=== PATIENT | female | born 1955 | race American Indian/Alaskan Native ===

== ENCOUNTER 2020-07-11 22:43 | Inpatient (IN) | payer MEDICARE ==
[2020-07-12] MEDS ORDERED: SODIUM CHLORIDE 0.9% 500 ML 500 ML IV ONE (03:13)
[2020-07-12] MEDS ORDERED: ONDANSETRON 4 MG/2 ML INJ IV ONE (03:13)
[2020-07-12] MEDS ORDERED: MORPHINE 4 MG/1 ML INJ IV ONE (03:13)
[2020-07-12] MEDS ORDERED: ACETAMINOPHEN 325 MG TAB PO ONE (03:16)
--- NOTE | 2020-07-12 03:16 | Emergency Department Report ---
<EL DOTSON - Last Filed: 07/12/20 08:39> ED General Adult HPI - General Chief complaint: Chest Pain Stated complaint: SOB/N/V/RT SIDE PAIN Time Seen by Provider: 07/12/20 02:56 - Related Data Home Medications Medication Instructions Recorded Confirmed Last Taken Gabapentin 300 mg PO TID 07/12/20 07/12/20 07/11/20 Aspirin 325 mg PO QDAY 07/13/20 07/13/20 Unknown Atorvastatin [Lipitor Tab] 80 mg PO DAILY 07/13/20 07/13/20 Unknown HYDROcodone/ACETAMINOPHEN 1 each PO TID 07/13/20 07/13/20 Unknown [Hydrocodone-Acetamin 7.5-300] Insulin Glargine [Lantus VIAL] 32 units SQ HS 07/13/20 07/13/20 Unknown Losartan [Cozaar] 50 mg PO QDAY 07/13/20 07/13/20 Unknown Lutein 20 mg PO DAILY 07/13/20 07/13/20 Unknown NIFEdipine [Nifedipine ER] 60 mg PO DAILY 07/13/20 07/13/20 Unknown SUMAtriptan succinate [SUMAtriptan 100 mg PO DAILY 07/13/20 07/13/20 Unknown Succinate] Sertraline [Zoloft] 100 mg PO QDAY 07/13/20 07/13/20 Unknown levETIRAcetam [Keppra TAB] 500 mg PO BID 07/13/20 07/13/20 Unknown Allergies Allergy/AdvReac Type Severity Reaction Status Date / Time No Known Allergies Allergy Verified 07/12/20 05:04 ED Past Medical Hx - Medications Home Medications: Home Medications Medication Instructions Recorded Confirmed Last Taken Type Gabapentin 300 mg PO TID 07/12/20 07/12/20 07/11/20 History Aspirin 325 mg PO QDAY 07/13/20 07/13/20 Unknown History Atorvastatin [Lipitor Tab] 80 mg PO DAILY 07/13/20 07/13/20 Unknown History HYDROcodone/ACETAMINOPHEN 1 each PO TID 07/13/20 07/13/20 Unknown History [Hydrocodone-Acetamin 7.5-300] Insulin Glargine [Lantus VIAL] 32 units SQ HS 07/13/20 07/13/20 Unknown History Losartan [Cozaar] 50 mg PO QDAY 07/13/20 07/13/20 Unknown History Lutein 20 mg PO DAILY 07/13/20 07/13/20 Unknown History NIFEdipine [Nifedipine ER] 60 mg PO DAILY 07/13/20 07/13/20 Unknown History SUMAtriptan succinate [SUMAtriptan 100 mg PO DAILY 07/13/20 07/13/20 Unknown History Succinate] Sertraline [Zoloft] 100 mg PO QDAY 07/13/20 07/13/20 Unknown History levETIRAcetam [Keppra TAB] 500 mg PO BID 07/13/20 07/13/20 Unknown History ED Medical Decision Making - Lab Data Result diagrams: 07/12/20 03:38 07/12/20 03:38 ED Disposition Clinical Impression: Suspected 2019 novel coronavirus infection, Renal insufficiency, Hypokalemia, SIRS (systemic inflammatory response syndrome), Acute abdominal pain Disposition: OP ADMIT IP TO THIS HOSP Is pt being admited?: Yes Condition: Serious <EULA HENDERSON - Last Filed: 07/16/20 16:58> ED General Adult HPI - General PUI?: Yes Source: patient, RN notes reviewed Mode of arrival: Ambulatory Limitations: Physical Limitation - History of Present Illness Initial comments: The patient was evaluated in the emergency department for symptoms described in the history of present illness. He/she was evaluated in the context of the global COVID-19 pandemic, which necessitated consideration that the patient might be at risk for infection with the virus that causes COVID-19. Institutional protocols and algorithms that pertain to the evaluation of patie nts at risk for COVID-19 are in a state of rapid change based on information released by regulatory bodies including the CDC and federal and state organizations. These policies and algorithms were followed during the patient's care in the emergency department. Please note that these policies, procedures and recommendations changed on a rapid basis. Primary care doctor: Dr German Torres Past medical history: Obesity, hypertension, seizure, stroke, abdominal surgical history includes myomectomy and hysterectomy This is a 64-year-old female. She is not known to myself previously. She presents to the ER with a complaint of epigastric and right upper quadrant pain, that radiates to the back, present for 2 to 3 days, nausea, malaise, fatigue, cough, loss of taste, loss of smell, weakness and myalgias. Patient reports that she has been self isolating and self quarantining. She reports that she does not have any COVID contacts that she is aware of. She denies DVT and pulmonary embolism risk factors. She also has a mild headache, which is throbbing, not sudden or thunderclap in nature, not maximal in intensity, and not the worst headache of her life. She is never had pain or symptoms like this before that she is aware of. Abdominal pain is sharp, increases with palpation, decreases with rest and position. -: Gradual, days(s) Location: abdomen Radiation: back Quality: aching Consistency: intermittent Improves with: rest Worsens with: movement ED Review of Systems ROS: Stated complaint: SOB/N/V/RT SIDE PAIN Other details as noted in HPI Constitutional: fever, malaise, weakness Eyes: denies: eye discharge ENT: denies: epistaxis Respiratory: cough, shortness of breath Cardiovascular: palpitations. denies: chest pain Gastrointestinal: abdominal pain, nausea. 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 Absent: nystagmus - ENT ENT exam: Present: normal exam, normal orophraynx, mucous membranes moist, normal external ear exam - Neck Neck exam: Present: normal inspection, full ROM. Absent: tenderness, meningismus - Respiratory Respiratory exam: Present: decreased breath sounds. Absent: respiratory distress, wheezes, rales, rhonchi, stridor - Cardiovascular Cardiovascular Exam: Present: normal rhythm, tachycardia, normal heart sounds. Absent: systolic murmur, diastolic murmur, rubs, gallop - GI/Abdominal GI/Abdominal exam: Present: soft, tenderness (There is right upper quadrant tenderness. There is a positive right upper quadrant Tang sign.), normal bowel sounds. Absent: distended, guarding, rebound, rigid - Extremities Exam Extremities exam: Present: normal inspection, full ROM, other (2+ pulses noted in the bilateral upper and lower extremities. There is no palpable cord. negative Homans sign. Muscular compartments are soft. The pelvis is stable.). Absent: pedal edema, calf tenderness - Back Exam Back exam: Present: normal inspection, full ROM, CVA tenderness (R). Absent: tenderness, paraspinal tenderness, vertebral tenderness - Neurological Exam Neurological exam: Present: alert, oriented X3, other (No facial droop. Tongue midline. Extraocular movements intact bilaterally. Facial sensation intact to light touch in V1, V2, V3 distribution bilaterally. 5 and a 5 strength in 4 extremities. Sensation intact to light touch in 4 extremities.). Absent: motor sensory deficit - Psychiatric Psychiatric exam: Present: anxious - Skin Skin exam: Present: warm, dry, intact, normal color. Absent: rash ED Course Vital Signs 07/11/20 07/12/20 07/12/20 23:05 02:54 03:14 Temperature 99.7 F H 100.6 F H Pulse Rate 108 H 101 H Respiratory 18 14 17 Rate Blood Pressure 142/82 200/91 Blood Pressure 200/91 [Right] O2 Sat by Pulse 96 94 97 Oximetry 07/12/20 07/12/20 07/12/20 06:24 06:26 06:53 Temperature Pulse Rate 87 92 H Respiratory 17 16 Rate Blood Pressure 120/68 Blood Pressure 112/64 112/64 [Right] O2 Sat by Pulse 88 98 100 Oximetry 07/12/20 07/12/20 07:00 09:58 Temperature 98.4 F Pulse Rate 78 85 Respiratory 17 22 Rate Blood Pressure 112/64 157/72 Blood Pressure [Right] O2 Sat by Pulse 100 98 Oximetry - Reevaluation(s) Reevaluation #1: 07/12/20 03:46 Differential diagnosis, include but not limited to: Cholecystitis, pneumonia, pyelonephritis, COVID-19, pulmonary embolism Assessment and plan: 64-year-old female with fever, tachycardia, hypoxia, right upper quadrant tenderness. Patient placed on isolation. During her history and physical, I had on complete personal protective equipment. Obtain x-ray of the chest, appropriate laboratory studies, right upper quadrant ultrasound, EKG and urinalysis. Treat patient's symptoms supportively and symptomatically, we anticipate antibiotic therapy will be initiated once initial diagnostics have resulted. We anticipate admission to this hospital. Discussed plan of care with the patient, who verbalized understanding, and is amenable to this plan of care. Reevaluation #2: 07/12/20 04:57 Patient fairly obese, she is ordered for IV fluids, 30 cc/kg of ideal body weight. Reevaluation #3: 07/12/20 05:09 Elevated troponin is likely a type II troponin leak. Reevaluation #4: 07/12/20 05:40 Right upper quadrant ultrasound suggested gallstones, with no radiographic evidence to support cholecystitis. Right-sided hydronephrosis is suggested. Urinalysis suggestive of urinary tract infection. Elevated d-dimer is reviewed and appreciated, nuclear medicine study is ordered, however, given the potential presence of surgical condition, i.e. obstructing renal stone, systemic anticoagulation will be withheld at this time. Patient requiring supplemental oxygen at this time, 2 to 3 L initiated. Patient reassessed, states that her pain is improved, CT scan abdomen pelvis is pending at this time Reevaluation #5: 07/12/20 05:52 CT scan abdomen pelvis shows no kidney stone or acute surgical condition. Right-sided hydronephrosis appears to be chronic. care will be transferred to Dr Rachelle Dotson, to contact hospital physician to arrange admission 07/12/20 06:00 ED Medical Decision Making - Lab Data Result diagrams: 07/16/20 06:39 07/16/20 06:39 Vital Signs 07/11/20 07/12/20 23:05 02:54 Temperature 99.7 F H 100.6 F H Pulse Rate 108 H 101 H Respiratory 18 14 Rate Blood Pressure 142/82 200/91 Blood Pressure 200/91 [Right] O2 Sat by Pulse 96 94 Oximetry - EKG Data -: EKG Interpreted by [place] EKG shows normal: sinus rhythm Rate: tachycardia - EKG Data When compared to previous EKG there are: previous EKG unavailable 07/12/20 03:47 There is no prior EKG available for comparison. Sinus rhythm, 103 bpm, left axi s deviation, left anterior fascicular block, left ventricular hypertrophy, poor R wave progression, and motion artifact. This EKG is abnormal. This EKG is not a STEMI. There is no prior EKG available for comparison at this time. - Radiology Data Radiology results: pending, report reviewed, image reviewed Print Report Referring Physician: EULA HENDERSON Patient Name: BEULAH LOWE Date of : 1955 Sex: Female Report Date: 2020-07-12 Report Status: Finalized Findings [address] [address] Ultrasound Report Signed Patient: BEULAH LOWE MR#: [id number] : 1955 Acct:[id number] Age/Sex: 64 / F ADM Date: 07/11/20 Loc: ED Attending Dr: Ordering Physician: EULA HENDERSON MD Date of Service: 07/12/20 Procedure(s): US abdomen limited Accession Number(s): [id number] cc: EULA HENDERSON MD ULTRASOUND ABDOMEN, LIMITED (RIGHT UPPER QUADRANT) INDICATION: ruq pain tenderness. COMPARISON: None available. FINDINGS: Pancreas: Visualized portion shows no significant abnormality. Liver: Normal. Gallbladder: Multiple gallstones are present, the largest measures 2 cm. There is no gallbladder wall thickening or pericholecystic fluid. Bile ducts: Normal. Common Bile Duct measures 4 mm. Free fluid: None. Additional Findings: There is advanced right hydronephrosis. IMPRESSION: 1. Cholelithiasis. 2. Advanced right hydronephrosis. Signer Name: Eliceo Michaud MD Signed: 07/12/2020 5:16 AM Workstation Name: [id number] Transcribed By: AMBER Dictated By: Eliceo Michaud MD Electronically Authenticated By: Eliceo Michaud MD Signed Date/Time: 07/12/20515 DD/ 4 TD/TT: Print Report Referring Physician: EULA HENDERSON Patient Name: BEULAH LOWE Date of : 1955 Sex: Female Report Date: 2020-07-12 Report Status: Finalized Findings [address] [address] XRay Report Signed Patient: BEULAH LOWE MR#: [id number] : 1955 Acct:[id number] Age/Sex: 64 / F ADM Date: 07/11/20 Loc: ED Attending Dr: Ordering Physician: EULA HENDERSON MD Date of Service: 07/12/20 Procedure(s): XR chest 1V ap Accession Number(s): [id number] cc: EULA HENDERSON MD Fluoro Time In Minutes: CHEST 1 VIEW INDICATION: ruq pain, cough hypoxia. COMPARISON: None. FINDINGS: Support devices: None. Heart: Enlarged. Lungs/Pleura: No acute pulmonary or pleural findings. IMPRESSION: 1. No acute findings. Signer Name: Eliceo Michaud MD Signed: 07/12/2020 3:49 AM Workstation Name: [id number] Transcribed By: AMBER Dictated By: Eliceo Michaud MD Electronically Authenticated By: Eliceo Michaud MD Signed Date/Time: 07/12/20348 DD/ 7 TD/TT: Print Report Referring Physician: EULA HENDERSON Patient Name: BEULAH LOWE Date of : 1955 Sex: Female Report Date: 2020-07-12 Report Status: Finalized [place] [address] Cat Scan Report Signed Patient: BEULAH LOWE MR#: [id number] : 1955 Acct:[id number] Age/Sex: 64 / F ADM Date: 07/11/20 Loc: ED Attending Dr: Ordering Physician: EULA HENDERSON MD Date of Service: 07/12/20 Procedure(s): CT abdomen pelvis wo con Accession Number(s): [id number] cc: EULA HENDERSON MD CT ABDOMEN AND PELVIS WITHOUT IV CONTRAST INDICATION: R.U.Q. abd pain. Cholecystitis vs Renal Colic vs Pyelonephritis. COMPARISON: Right upper quadrant ultrasound earlier the same day. TECHNIQUE: All CT scans at this facility use dose modulation, automated exposure control, iterative reconstruction or weight based dosing, when appropriate, to reduce radiation dose to as low as reasonably achievable. FINDINGS: Lung Bases: Atelectatic changes are noted in the bases. Skeletal System: No acute abnormality. ABDOMEN: Liver: No significant abnormality. Gallbladder: Cholelithiasis. Bile Ducts: No significant abnormality. Pancreas: No significant abnormality. Spleen: No significant abnormality. Adrenals: No significant abnormality. Right Kidney: There is advanced right hydronephrosis with cortical thinning. Right ureter is normal in caliber. No stones are seen. Left Kidney: No significant abnormality. Upper GI tract: Duodenal diverticulum is noted. Lymph Nodes: No significant adenopathy. Aorta: No significant abnormality. Additional Findings: No significant abnormality. PELVIS: Colon: The ascending colon and cecum are dilated with fluid. Urinary Bladder and Distal Ureters: No significant abnormality. Appendix: No significant abnormality. Lymph Nodes: No significant adenopathy. Additional Findings: None. IMPRESSION: 1. Cholelithiasis. No biliary dilatation or gallbladder inflammation. 2. Given the diffuse right renal cortical thinning, right hydronephrosis is likely chronic. This is likely due to chronic UPJ obstruction. CT without contrast is relatively insensitive for pyelonephritis; however, there is asymmetric right perinephric stranding which could be seen in setting of pyelonephritis, correlate clinically. 3. The cecum and ascending colon are mildly distended with fluid. No intrinsic inflammation is seen. This is of uncertain significance. Signer Name: Eliceo Michaud MD Signed: 07/12/2020 5:52 AM Workstation Name: [id number] Transcribed By: AMBER Dictated By: Eliceo Michaud MD Electronically Authenticated By: Eliceo Michaud MD Signed Date/Time: 07/12/2052 DD/ 0546 Critical Care Time: Yes Critical care time in (mins) excluding proc time.: 35 Critical care attestation.: If time is entered above; I have spent that time in minutes in the direct care of this critically ill patient, excluding procedure time. ED Disposition Is pt being admited?: Yes Does the pt Need Aspirin: No
--- NOTE | 2020-07-12 03:55 | XRay Report ---
CHEST 1 VIEW INDICATION: ruq pain, cough hypoxia. COMPARISON: None. FINDINGS: Support devices: None. Heart: Enlarged. Lungs/Pleura: No acute pulmonary or pleural findings. IMPRESSION: 1. No acute findings. Signer Name: Eliceo Michaud MD Signed: 07/12/2020 3:49 AM Workstation Name: [id number]
[2020-07-12 04:01] LABS: Basophils % (Auto) 0.2 % (0.0-1.8); Eosinophils % (Auto) 0.1 % (0.0-4.3); Hematocrit 35.3 % (30.3-42.9); Hemoglobin 11.5 gm/dl (10.1-14.3); Lymphocytes # (Auto) 0.9 K/mm3 (1.2-5.4); Lymphocytes % (Auto) 10.5 % (13.4-35.0); Mean Corpuscular HGB Conc 33 % (30-34); Mean Corpuscular Volume 77 fl (79-97); Monocytes % (Auto) 11.3 % (0.0-7.3); Platelet Count 195 K/mm3 (140-440); Red Blood Count 4.56 M/mm3 (3.65-5.03); Red Cell Distribution Width 15.9 % (13.2-15.2)
[2020-07-12 04:11] LABS: INR 1.29 (0.87-1.13)
[2020-07-12 04:19] LABS: Alanine Aminotransferase 19 units/L (7-56); Albumin 3.4 g/dL (3.9-5); BUN/Creatinine Ratio 17; Blood Urea Nitrogen 42 mg/dL (7-17); Calcium 9.6 mg/dL (8.4-10.2); Hemolysis Index 3
[2020-07-12 04:23] LABS: Bilirubin,Direct < 0.2 mg/dL (0-0.2)
[2020-07-12 04:24] LABS: Bacteria,Urine 3+ /HPF (Negative); Bilirubin,Urine NEG (Negative); Blood,Urine LG (Negative); Color,Urine Red (Yellow); RBC,Urine > 182.0 /HPF (0.0-6.0); Sperm,Urine 2+ /HPF (NP); Urobilinogen,Urine < 2.0 mg/dL (<2.0); WBC,Urine > 182.0 /HPF (0.0-6.0)
[2020-07-12] MEDS ORDERED: PIPERACIL/TAZOBACTA 4.5/NS 100 4.5 GM/100 ML VIAL IV ONE (04:25)
[2020-07-12] MEDS ORDERED: POTASSIUM CHLORIDE ER 20 MEQ TAB PO ONE (04:26)
[2020-07-12 04:49] LABS: C-Reactive Protein 33.6 mg/dL (0.00-1.30)
[2020-07-12] MEDS ORDERED: SODIUM CHLORIDE 0.9% IV ONE (04:56)
[2020-07-12] MEDS ORDERED: SODIUM CHLORIDE 0.9% 100 ML ONE (05:00)
[2020-07-12 05:08] LABS: Chol/HDL Ratio 2.05 %
[2020-07-12] MEDS ORDERED: dexAMETHasone 4 MG/ML VIAL IV ONE (05:08)
--- NOTE | 2020-07-12 05:21 | Ultrasound Report ---
ULTRASOUND ABDOMEN, LIMITED (RIGHT UPPER QUADRANT) INDICATION: ruq pain tenderness. COMPARISON: None available. FINDINGS: Pancreas: Visualized portion shows no significant abnormality. Liver: Normal. Gallbladder: Multiple gallstones are present, the largest measures 2 cm. There is no gallbladder wall thickening or pericholecystic fluid. Bile ducts: Normal. Common Bile Duct measures 4 mm. Free fluid: None. Additional Findings: There is advanced right hydronephrosis. IMPRESSION: 1. Cholelithiasis. 2. Advanced right hydronephrosis. Signer Name: Eliceo Michaud MD Signed: 07/12/2020 5:16 AM Workstation Name: [id number]
--- NOTE | 2020-07-12 05:57 | Cat Scan Report ---
CT ABDOMEN AND PELVIS WITHOUT IV CONTRAST INDICATION: R.U.Q. abd pain. Cholecystitis vs Renal Colic vs Pyelonephritis. COMPARISON: Right upper quadrant ultrasound earlier the same day. TECHNIQUE: All CT scans at this facility use dose modulation, automated exposure control, iterative reconstructi on or weight based dosing, when appropriate, to reduce radiation dose to as low as reasonably achieva ble. FINDINGS: Lung Bases: Atelectatic changes are noted in the bases. Skeletal System: No acute abnormality. ABDOMEN: Liver: No significant abnormality. Gallbladder: Cholelithiasis. Bile Ducts: No significant abnormality. Pancreas: No significant abnormality. Spleen: No significant abnormality. Adrenals: No significant abnormality. Right Kidney: There is advanced right hydronephrosis with cortical thinning. Right ureter is normal i n caliber. No stones are seen. Left Kidney: No significant abnormality. Upper GI tract: Duodenal diverticulum is noted. Lymph Nodes: No significant adenopathy. Aorta: No significant abnormality. Additional Findings: No significant abnormality. PELVIS: Colon: The ascending colon and cecum are dilated with fluid. Urinary Bladder and Distal Ureters: No significant abnormality. Appendix: No significant abnormality. Lymph Nodes: No significant adenopathy. Additional Findings: None. IMPRESSION: 1. Cholelithiasis. No biliary dilatation or gallbladder inflammation. 2. Given the diffuse right renal cortical thinning, right hydronephrosis is likely chronic. This is likely due to chronic UPJ obstruction. CT without contrast is relatively insensitive for pyelonephrit is; however, there is asymmetric right perinephric stranding which could be seen in setting of pyelon ephritis, correlate clinically. 3. The cecum and ascending colon are mildly distended with fluid. No intrinsic inflammation is seen. This is of uncertain significance. Signer Name: Eliceo Michaud MD Signed: 07/12/2020 5:52 AM Workstation Name: [id number]
--- NOTE | 2020-07-12 08:25 | Nuclear Medicine Report ---
NUCLEAR MEDICINE PERFUSION ONLY LUNG SCAN HISTORY: Hypoxia, evaluate for pulmonary embolus, shortness of breath, suspected Covid COMPARISON: AP chest performed earlier the same day TECHNIQUE: Multiple projections of the chest were obtained following injection of 5.5 mCi of techneti um 99m MAA FINDINGS: There is homogeneous distribution of the radiotracer bilaterally. No perfusion defect consistent with pulmonary embolus is detected on nuclear medicine study. Signer Name: Tyree Torres Jr, MD Signed: 07/12/2020 8:20 AM Workstation Name: [id number]
[2020-07-12] MEDS ORDERED: ONDANSETRON 4 MG/2 ML INJ IV PRN (11:00)
[2020-07-12] MEDS ORDERED: ACETAMINOPHEN 325 MG TAB PO PRN (11:00)
--- NOTE | 2020-07-12 11:44 | History and Physical Report ---
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 Patient states her pain is sharp, increases with palpitation, decreases with rest and position, is intermittent in nature and rated at a 6/10. Patient denies any sick contacts, recent travels or known exposure to COVID-19. Work-up in the emergency department reveals VAL (CR 2.5/BUN 42), pyelonephritis and cholelithiasis on CT scan, elevated D-dimer (5255), hypokalemia (3.4), elevated LDH (291) and CRP (3.36), urine analysis with leukocyte esterase and pyuria and elevated troponin at 0.171. She is on supplemental oxygen at this time consistent with acute respiratory distress. She will be admitted to the hospital service with a complicated urinary tract infection and is a COVID-19 PUI. Infectious disease has been consulted and she has been initiated on empiric antibiotics and steroids. Past History Past Medical History: diabetes, hypertension, seizures, stroke, other Past Surgical History: hysterectomy, total knee replacement, Other (Myectomy) Social history: single, lives with family. denies: smoking, alcohol abuse, prescription drug abuse, IV drug use Family history: hypertension Medications and Allergies Allergies Allergy/AdvReac Type Severity Reaction Status Date / Time No Known Allergies Allergy Verified 07/12/20 05:04 Home Medications Medication Instructions Recorded Confirmed Last Taken Type Gabapentin 300 mg PO TID 07/12/20 07/12/20 07/11/20 History Active Meds: Active Medications Acetaminophen (Tylenol) 650 mg PO Q4H PRN PRN Reason: Pain MILD(1-3)/Fever >100.5/FERNANDEZ Docusate Sodium (Colace) 100 mg PO BID [facility] Famotidine (Pepcid) 20 mg PO BID [facility] Cefepime HCl (Cefepime/Ns 1 Gm/100 Ml) 1 gm in 100 mls @ 200 mls/hr IV Q24HR [facility]; Protocol Ondansetron HCl (Zofran) 4 mg IV Q8H PRN PRN Reason: Nausea And Vomiting Oxycodone/Acetaminophen (Percocet 5/325) 1 tab PO Q6H PRN PRN Reason: Pain, Moderate (4-6) Senna (Senokot) 8.6 mg PO Q12HR [facility] Sodium Chloride (Sodium Chloride Flush Syringe 10 Ml) 10 ml IV BID [facility] Sodium Chloride (Sodium Chloride Flush Syringe 10 Ml) 10 ml IV PRN PRN PRN Reason: LINE FLUSH Review of Systems Constitutional: fever, chills, night sweats, fatigue, weakness, malaise, lethargy, no weight loss, no weight gain, no anorexia, no chronic pain Ears, nose, mouth and throat: no ear pain, no ear discharge, no tinnitis, no decreased hearing, no nose pain, no nasal congestion, no nasal discharge, no sinus pressure, no sinus pain, no epistaxis, no bleeding gums, no dental pain, no mouth pain, no dysphagia, no hoarseness, no sore throat, no voice changes Breasts: normal Cardiovascular: palpitations, shortness of breath, high blood pressure, leg edema, no chest pain, no orthopnea, no rapid/irregular heart beat, no edema, no syncope, no lightheadedness, no paroxysmal nocturnal dyspnea Respiratory: cough, shortness of breath, sleep apnea, home oxygen (3L), no cough with sputum, no excessive sputum, no hemoptysis Gastrointestinal: abdominal pain, nausea, no vomiting, no diarrhea, no constipation, no change in bowel habits, no hematemesis, no coffee ground emesis, no BRBPR, no melena, no hematochezia, no loss of appetite, no heartburn, no indigestion Genitourinary Female: flank pain, dysuria, urgency, other (renal stents), no hematuria, no nocturia, no vaginal itching, no vaginal discharge Menstruation: post hysterectomy Musculoskeletal: myalgias, no neck stiffness, no neck pain, no shooting arm pain, no arm numbness/tingling, no low back pain, no shooting leg pain, no leg numbness/tingling, no redness of joints, no fractures Integumentary: no rash, no pruritis, no redness, no sores, no wounds, no jaundice, no boils, no blisters, no growths, no bullae, no lesions Neurological: seizures, changes in smell/taste, no head injury, no paralysis, no weakness, no parathesias, no numbness, no tingling, no syncope, no tremors, no ataxia, no lack of coordination, no headaches, no change in speech, no change in mentation, no confusion, no sensory deficit, no double vision Psychiatric: no anxiety, no memory loss, no change in sleep habits, no insomnia, no hypersomnia, no change in appetite, no change in libido, no suicidal ideation, no depression, no hopelessness, no confusion Endocrine: no cold intolerance, no heat intolerance, no polyphagia, no excessive thirst, no polydipsia, no polyuria, no nocturia, no weight change, no high blood sugars Hematologic/Lymphatic: no easy bruising, no easy bleeding Allergic/Immunologic: no urticaria, no allergic rhinitis Exam - Constitutional Vitals: Temp Pulse Resp BP Pulse Ox 98.4 F 85 22 157/72 98 07/12/20 09:58 07/12/20 09:58 07/12/20 09:58 07/12/20 09:58 07/12/20 09:58 General appearance: Present: no acute distress, well-nourished, obese - EENT Eyes: Present: PERRL, EOM intact ENT: hearing intact, clear oral mucosa - Neck Neck: Present: supple, normal ROM - Respiratory Respiratory effort: normal Respiratory: bilateral: diminished - Cardiovascular Rhythm: regular Heart Sounds: Present: S1 & S2. Absent: systolic murmur, diastolic murmur - Extremities Extremities: no ischemia, pulses intact, pulses symmetrical, No edema, normal temperature, normal color, Full ROM Peripheral Pulses: within normal limits - Abdominal General gastrointestinal: Present: soft, tender, non-distended, normal bowel sounds Localized gastrointestinal: tender: RUQ, epigastric periumbilical - Integumentary Integumentary: Present: clear, warm, dry - Musculoskeletal Musculoskeletal: strength equal bilaterally - Psychiatric Psychiatric: cooperative - Neurologic Neurologic: CNII-XII intact, no focal deficits, moves all extremities - Allied Health Allied health notes reviewed: nursing HEART Score - HEART Score History: Moderately suspicious EKG: Normal Age: 45-65 Risk factors: 1-2 risk factors Troponin: Troponin T 0.171 ng/mL (0.00-0.029) H* 07/12/20 03:38 Troponin: 1-3x normal limit HEART Score: 4 Results - Labs CBC & Chem 7: 07/12/20 03:38 07/12/20 03:38 Labs: Laboratory Last Values WBC 8.9 K/mm3 (4.5-11.0) 07/12/20 03:38 RBC 4.56 M/mm3 (3.65-5.03) 07/12/20 03:38 Hgb 11.5 gm/dl (10.1-14.3) 07/12/20 03:38 Hct 35.3 % (30.3-42.9) 07/12/20 03:38 MCV 77 fl (79-97) L 07/12/20 03:38 MCH 25 pg (28-32) L 07/12/20 03:38 MCHC 33 % (30-34) 07/12/20 03:38 RDW 15.9 % (13.2-15.2) H 07/12/20 03:38 Plt Count 195 K/mm3 (140-440) 07/12/20 03:38 Lymph % (Auto) 10.5 % (13.4-35.0) L 07/12/20 03:38 Cloud % (Auto) 11.3 % (0.0-7.3) H 07/12/20 03:38 Eos % (Auto) 0.1 % (0.0-4.3) 07/12/20 03:38 Baso % (Auto) 0.2 % (0.0-1.8) 07/12/20 03:38 Lymph # (Auto) 0.9 K/mm3 (1.2-5.4) L 07/12/20 03:38 Cloud # (Auto) 1.0 K/mm3 (0.0-0.8) H 07/12/20 03:38 Eos # (Auto) 0.0 K/mm3 (0.0-0.4) 07/12/20 03:38 Baso # (Auto) 0.0 K/mm3 (0.0-0.1) 07/12/20 03:38 Seg Neutrophils % 77.9 % (40.0-70.0) H 07/12/20 03:38 Seg Neutrophils # 7.0 K/mm3 (1.8-7.7) 07/12/20 03:38 PT 16.3 Sec. (12.2-14.9) H 07/12/20 03:38 INR 1.29 (0.87-1.13) H 07/12/20 03:38 D-Dimer 5255.25 ng/mlDDU (0-234) H 07/12/20 03:38 Sodium 141 mmol/L (137-145) 07/12/20 03:38 Potassium 3.4 mmol/L (3.6-5.0) L 07/12/20 03:38 Chloride 99.3 mmol/L (98-107) 07/12/20 03:38 Carbon Dioxide 24 mmol/L (22-30) 07/12/20 03:38 Anion Gap 21 mmol/L 07/12/20 03:38 BUN 42 mg/dL (7-17) H 07/12/20 03:38 Creatinine 2.5 mg/dL (0.6-1.2) H 07/12/20 03:38 Estimated GFR 24 ml/min 07/12/20 03:38 BUN/Creatinine Ratio 17 % 07/12/20 03:38 Glucose 231 mg/dL (65-100) H 07/12/20 03:38 Glucose 237 mg/dL (65-100) H 07/12/20 03:38 POC Glucose 252 (70-105) H 07/12/20 11:26 Lactic Acid 1.60 mmol/L (0.7-2.0) 07/12/20 03:38 Calcium 9.6 mg/dL (8.4-10.2) 07/12/20 03:38 Ferritin 139.8 ng/mL (10.0-200.0) 07/12/20 03:38 Total Bilirubin 0.60 mg/dL (0.1-1.2) 07/12/20 03:38 Direct Bilirubin < 0.2 mg/dL (0-0.2) 07/12/20 03:38 Indirect Bilirubin 0.4 mg/dL 07/12/20 03:38 AST 37 units/L (5-40) 07/12/20 03:38 ALT 19 units/L (7-56) 07/12/20 03:38 Alkaline Phosphatase 80 units/L (35-129) 07/12/20 03:38 Lactate Dehydrogenase 290 units/L (91-180) H 07/12/20 03:38 Lactate Dehydrogenase 291 units/L (91-180) H 07/12/20 03:38 Troponin T 0.171 ng/mL (0.00-0.029) H* 07/12/20 03:38 C-Reactive Protein 33.50 mg/dL (0.00-1.30) H 07/12/20 03:38 C-Reactive Protein 33.60 mg/dL (0.00-1.30) H 07/12/20 03:38 Total Protein 7.4 g/dL (6.3-8.2) 07/12/20 03:38 Albumin 3.4 g/dL (3.9-5) L 07/12/20 03:38 Albumin/Globulin Ratio 0.9 % 07/12/20 03:38 Triglycerides 115 mg/dL (2-149) 07/12/20 03:38 Cholesterol 111 mg/dL (50-199) 07/12/20 03:38 LDL Cholesterol Direct 33 mg/dL (50-130) L 07/12/20 03:38 HDL Cholesterol 54 mg/dL (40-59) 07/12/20 03:38 Cholesterol/HDL Ratio 2.05 % 07/12/20 03:38 Lipase 28 units/L (13-60) 07/12/20 03:38 Procalcitonin 55.06 ng/mL (<0.15) 07/12/20 03:44 Urine Color Red (Yellow) 07/12/20 04:08 Urine Turbidity Turbid (Clear) 07/12/20 04:08 Urine pH 5.0 (5.0-7.0) 07/12/20 04:08 Ur Specific [place] 1.017 (1.003-1.030) 07/12/20 04:08 Urine Protein 100 mg/dl mg/dL (Negative) 07/12/20 04:08 Urine Glucose (UA) Neg mg/dL (Negative) 07/12/20 04:08 Urine Ketones Neg mg/dL (Negative) 07/12/20 04:08 Urine Blood Lg (Negative) 07/12/20 04:08 Urine Nitrite Neg (Negative) 07/12/20 04:08 Urine Bilirubin Neg (Negative) 07/12/20 04:08 Urine Urobilinogen < 2.0 mg/dL (<2.0) 07/12/20 04:08 Ur Leukocyte Esterase Mod (Negative) 07/12/20 04:08 Urine WBC (Auto) > 182.0 /HPF (0.0-6.0) H 07/12/20 04:08 Urine RBC (Auto) > 182.0 /HPF (0.0-6.0) 07/12/20 04:08 U Epithel Cells (Auto) 16.0 /HPF (0-13.0) H 07/12/20 04:08 Urine Bacteria (Auto) 3+ /HPF (Negative) 07/12/20 04:08 Urine WBC Clumps 3+ /HPF 07/12/20 04:08 Urine Sperm 2+ /HPF ([employer] [facility]) 07/12/20 04:08 Microbiology: Microbiology 07/12/20 04:17 Peripheral/Venous Blood Culture - Preliminary Culture in Progress 07/12/20 03:38 Peripheral/Venous Blood Culture - Preliminary Culture in Progress - Imaging and Cardiology Chest x-ray: report reviewed, image reviewed CT scan - abdomen: report reviewed US - abdomen: report reviewed - Diagnostic Impressions Diagnostic Impressions: 07/12 CT abdomen/pelvis without contrast:1. Cholelithiasis. No biliary d ilatation or gallbladder inflammation. 2. Given the diffuse right renal cortical thinning, right hydronephrosis is likely chronic. This is likely due to chronic UPJ obstruction. CT without contrast is relatively insensitive for pyelonephritis; however, there is asymmetric right perinephric stranding which could be seen in setting of pyelonephritis, correlate clinically. 3. The cecum and ascending colon are mildly distended with fluid. No intrinsic inflammation is seen. This is of uncertain significance. Chest x-ray: No acute findings 07/12 VQ scan: No perfusion deficit consistent with pulmonary embolism is detected. 07/12 abdominal ultrasound: 1. Cholelithiasis. 2. Advanced right hydronephrosis. Tejeda/IV: Voiding Method Bedside Commode IV Catheter Type [Left INT / Saline Lock Antecubital] Assessment and Plan - Patient Problems (1) Pyelonephritis, acute Current Visit: Yes Status: Acute Plan to address problem: 07/12 CTA abdomen/pelvis without contrast: Atelectatic changes noted in the lung bases. Advanced right hydronephrosis with cortical thinning which is likely chronic, due to chronic UPJ obstruction with asymmetric right perinephric stranding. Cholelithiasis with no biliary dilation or gallbladder inflammation. Cecum and ascending colon are mildly distended with fluid with no intrinsic inflammation. 07/12 urine analysis shows pyuria and leukocyte esterase 07/12 urine culture pending IV antibiotic therapy Trend CBC (2) Suspected 2019 novel coronavirus infection Current Visit: Yes Status: Acute Plan to address problem: 04/11 COVID-19 PCR pending ID consulted S/p dexamethasone in the ED Dexamethasone 6 mg p.o. daily () Isolation/contact precautions Pulmonary hygiene Continuous SPO2 monitoring OOB 3 times daily and as needed Prone to sleep as needed Telemetry oxygen as needed Trend COVID-19 markers Anticoagulation per Covid protocol (3) VAL (acute kidney injury) Current Visit: Yes Status: Acute Plan to address problem: Admit creatinine 2.5/42 s/p 1500ml NS bolus in ED Trend BMP Judicious IV fluid in setting of possible COVID-19 for 1 additional liter Avoid nephrotoxic medications Renally dose medications Strict intake and output (4) Elevated d-dimer Current Visit: Yes Status: Acute Plan to address problem: Admit D dimer 5255 07/12 VQ scan shows low probability of a pulmonary embolism Trend D-dimer Prophylactic anticoagulation per Covid protocol (5) Hypokalemia Current Visit: Yes Status: Acute Plan to address problem: Admit potassium 3.4 Repleted in the ED Trend BMP Replete as needed (6) Diabetes mellitus Current Visit: Yes Status: Chronic Plan to address problem: 07/12 Hemoglobin A1c pending SSI CC renal diet Accu-Cheks ACHS (7) Elevated troponin Current Visit: Yes Status: Acute Plan to address problem: Likely a type II troponin leak in setting of VAL Trend CE (troponin, CK-MB) Patient denies any chest, jaw, upper back, shoulder, left arm pain, diaphoresis or current nausea Continue to monitor Remote telemetry 07/12 ECG in the ED (8) DVT prophylaxis Current Visit: Yes Status: Acute Plan to address problem: GI prophylaxis SCDs to bilateral lower extremities while in bed Subcu heparin
[2020-07-12] MEDS ORDERED: DEXTROSE 50% IN WATER (25GM) 50 ML SYRINGE IV PRN (11:45)
--- NOTE | 2020-07-12 12:38 | Consultation ---
History of Present Illness - Reason for Consult Consult date: 07/12/20 - History of Present Illness 64-year-old female past medical history obesity, hypertension, CVA with residual right-sided weakness, MN, diabetes admitted to the hospital with abdominal pain. She notes the pain began approximately 2 to 3 days prior to admission and is mostly epigastric and right upper quadrant. She notes an associated nausea, fatigue, cough, anosmia and dysgeusia. She denies any recent Covid contacts that she knows of. She was admitted for concern for pyelonephritis COVID-19. Febrile to 100.6 with a white count of 8.9. Currently on cefepime. Blood cultures currently pending. Imaging personally reviewed: CT abdomen pelvis: Cholelithiasis without dilatation or inflammation. Possible right-sided pyelonephritis V/Q scan: No evidence of PE Chest x-ray: No obvious pneumonia. Review of Systems: Bold if positive, otherwise negative General: fevers, chills, rigors HEENT: visual disturbance, diplopia, eye pain Respiratory: cough, sputum, hemoptysis, shortness of breath Cardiovascular: chest pain, syncope Gastrointestinal: nausea, vomiting, diarrhea, abdominal pain Genitourinary: dysuria, hematuria, flank pain Musculoskeletal: neck pain, back pain, joint pain, edema Neurologic: headaches, seizures Hematologic: easy bruising or bleeding Endocrine: night sweats, acute weight loss Skin: rash, jaundice, redness Psychiatric: suicidal, homicidal ideation Past History Past Medical History: diabetes, hypertension, stroke Past Surgical History: No surgical history Social history: no significant social history Family history: no significant family history Medications and Allergies Allergies Allergy/AdvReac Type Severity Reaction Status Date / Time No Known Allergies Allergy Verified 07/12/20 05:04 Home Medications Medication Instructions Recorded Confirmed Last Taken Type Gabapentin 300 mg PO TID 07/12/20 07/12/20 07/11/20 History Active Meds: Active Medications Acetaminophen (Tylenol) 650 mg PO Q4H PRN PRN Reason: Pain MILD(1-3)/Fever >100.5/FERNANDEZ Dexamethasone (Decadron) 6 mg PO QDAY TIM Stop: 07/21/20 10:01 Dextrose (D50w (25gm) Syringe) 50 ml IV Q30MIN PRN; Protocol PRN Reason: Hypoglycemia Docusate Sodium (Colace) 100 mg PO BID [facility] Famotidine (Pepcid) 20 mg PO BID [facility] Cefepime HCl (Cefepime/Ns 1 Gm/100 Ml) 1 gm in 100 mls @ 200 mls/hr IV Q24HR [facility]; Protocol Insulin Human Lispro (Humalog) 0 unit SUB-Q ACHS [facility]; Protocol Ondansetron HCl (Zofran) 4 mg IV Q8H PRN PRN Reason: Nausea And Vomiting Oxycodone/Acetaminophen (Percocet 5/325) 1 tab PO Q6H PRN PRN Reason: Pain, Moderate (4-6) Senna (Senokot) 8.6 mg PO Q12HR [facility] Sodium Chloride (Sodium Chloride Flush Syringe 10 Ml) 10 ml IV BID [facility] Sodium Chloride (Sodium Chloride Flush Syringe 10 Ml) 10 ml IV PRN PRN PRN Reason: LINE FLUSH Physical Examination - Physical Exam Narrative exam: Physical exam deferred due to PPE conservation strategy. Please refer to primary team's note. - Constitutional Vitals: Vital Signs Temp Pulse Resp BP Pulse Ox 98.4 F 85 22 157/72 98 07/12/20 09:58 07/12/20 09:58 07/12/20 09:58 07/12/20 09:58 07/12/20 09:58 Temperature -Last 24 Hours Temperature 98.4 F Temperature 100.6 F Temperature 100.6 F Temperature 99.7 F Results - Labs CBC & Chem 7: 07/12/20 03:38 07/12/20 03:38 Labs: Abnormal lab results 07/12/20 07/12/20 07/12/20 Range/Units 03:38 03:38 03:38 MCV 77 L (79-97) fl MCH 25 L (28-32) pg RDW 15.9 H (13.2-15.2) % Lymph % (Auto) 10.5 L (13.4-35.0) % Hale % (Auto) 11.3 H (0.0-7.3) % Lymph # (Auto) 0.9 L (1.2-5.4) K/mm3 Hale # (Auto) 1.0 H (0.0-0.8) K/mm3 Seg Neutrophils % 77.9 H (40.0-70.0) % PT 16.3 H (12.2-14.9) Sec. INR 1.29 H (0.87-1.13) D-Dimer 5255.25 H (0-234) ng/mlDDU Potassium 3.4 L (3.6-5.0) mmol/L BUN 42 H (7-17) mg/dL Creatinine 2.5 H (0.6-1.2) mg/dL Glucose 231 H (65-100) mg/dL POC Glucose (70-105) Lactate Dehydrogenase 290 H (91-180) units/L Troponin T (0.00-0.029) ng/mL C-Reactive Protein 33.50 H (0.00-1.30) mg/dL Albumin 3.4 L (3.9-5) g/dL LDL Cholesterol Direct (50-130) mg/dL Urine WBC (Auto) (0.0-6.0) /HPF U Epithel Cells (Auto) (0-13.0) /HPF 07/12/20 07/12/20 07/12/20 Range/Units 03:38 03:38 04:08 MCV (79-97) fl MCH (28-32) pg RDW (13.2-15.2) % Lymph % (Auto) (13.4-35.0) % Hale % (Auto) (0.0-7.3) % Lymph # (Auto) (1.2-5.4) K/mm3 Hale # (Auto) (0.0-0.8) K/mm3 Seg Neutrophils % (40.0-70.0) % PT (12.2-14.9) Sec. INR (0.87-1.13) D-Dimer (0-234) ng/mlDDU Potassium (3.6-5.0) mmol/L BUN (7-17) mg/dL Creatinine (0.6-1.2) mg/dL Glucose 237 H (65-100) mg/dL POC Glucose (70-105) Lactate Dehydrogenase 291 H (91-180) units/L Troponin T 0.171 H* (0.00-0.029) ng/mL C-Reactive Protein 33.60 H (0.00-1.30) mg/dL Albumin (3.9-5) g/dL LDL Cholesterol Direct 33 L (50-130) mg/dL Urine WBC (Auto) > 182.0 H (0.0-6.0) /HPF U Epithel Cells (Auto) 16.0 H (0-13.0) /HPF 07/12/20 Range/Units 11:26 MCV (79-97) fl MCH (28-32) pg RDW (13.2-15.2) % Lymph % (Auto) (13.4-35.0) % Hale % (Auto) (0.0-7.3) % Lymph # (Auto) (1.2-5.4) K/mm3 Hale # (Auto) (0.0-0.8) K/mm3 Seg Neutrophils % (40.0-70.0) % PT (12.2-14.9) Sec. INR (0.87-1.13) D-Dimer (0-234) ng/mlDDU Potassium (3.6-5.0) mmol/L BUN (7-17) mg/dL Creatinine (0.6-1.2) mg/dL Glucose (65-100) mg/dL POC Glucose 252 H (70-105) Lactate Dehydrogenase (91-180) units/L Troponin T (0.00-0.029) ng/mL C-Reactive Protein (0.00-1.30) mg/dL Albumin (3.9-5) g/dL LDL Cholesterol Direct (50-130) mg/dL Urine WBC (Auto) (0.0-6.0) /HPF U Epithel Cells (Auto) (0-13.0) /HPF Assessment and Plan Cultures: Blood culture 07/12/2020 pending A/P: 64-year-old female past medical history obesity, hypertension, CVA with residual right-sided weakness, MN, diabetes admitted with sepsis likely secondary to pyelonephritis #Acute sepsis: Present with fevers and tachycardia likely secondary to pyonephritis #Right pyelonephritis: Suspicious on CT with significant pyuria on urinalysis. #Abdominal pain: Questionable passed gallstone given cholelithiasis without i nflammation. #COVID-19 PUI: Pending test results #CKD: Renally adjust antibiotics Recs: -Continue cefepime renally dosed for now -Follow-up blood and urine cultures -Follow-up COVID-19 testing -If COVID-19 positive, not a candidate for remdesivir given GFR less than 30 Thank you for the consult, we will continue to follow. Sabas Macias MD O: [phone] F: [phone]
[2020-07-12] MEDS ORDERED: SODIUM CHLORIDE 0.9% 100 ML IVPB IV SCH (14:00)
[2020-07-12] MEDS: INSULIN LISPRO 100 UNIT/ML VIAL 3 mL SUB-Q SCH ×2 (17:08→22:04)
[2020-07-12] MEDS: HEPARIN 5,000 UNIT/1 ML VIAL SUB-Q SCH ×2 (17:08→22:02)
[2020-07-12] MEDS: SODIUM CHLORIDE 0.9% 1000 ML 1,000 ML IV SCH (17:09)
[2020-07-12 17:22] LABS: Creatine Kinase MB 9.2 ng/mL (0.0-4.0)
[2020-07-12] MEDS: oxyCODONE /ACETAMINOPHEN 5-325MG TAB PO PRN (20:11)
[2020-07-12 20:26] LABS: Creatine Kinase MB 8.8 ng/mL (0.0-4.0)
[2020-07-12] MEDS ORDERED: FAMOTIDINE 20 MG TAB PO SCH (22:00)
[2020-07-12] MEDS: SENNOSIDES 8.6 MG TAB PO SCH (22:03)
[2020-07-12] MEDS: DOCUSATE SODIUM 100 MG CAP PO SCH (22:03)
[2020-07-13 06:11] LABS: Calcium 8.8 mg/dL (8.4-10.2)
[2020-07-13] MEDS: HEPARIN 5,000 UNIT/1 ML VIAL SUB-Q SCH ×3 (06:27→22:15)
[2020-07-13] MEDS: SODIUM CHLORIDE 0.9% 1000 ML 1,000 ML IV SCH (06:27)
[2020-07-13] MEDS ORDERED: NON-FORMULARY EACH (Gabapentin 300 MG) PO SCH (08:00)
[2020-07-13] MEDS: CEFEPIME/NS 2 GM/100 ML 2 GM/100 ML BAG IV SCH (09:18)
[2020-07-13] MEDS: SENNOSIDES 8.6 MG TAB PO SCH ×2 (09:18→22:14)
[2020-07-13] MEDS: FAMOTIDINE 20 MG TAB PO SCH (09:18)
[2020-07-13] MEDS: GABAPENTIN 300 MG CAP PO SCH ×3 (09:19→20:00)
[2020-07-13] MEDS: oxyCODONE /ACETAMINOPHEN 5-325MG TAB PO PRN (09:19)
[2020-07-13] MEDS: DOCUSATE SODIUM 100 MG CAP PO SCH ×2 (09:19→22:14)
[2020-07-13] MEDS: INSULIN LISPRO 100 UNIT/ML VIAL 3 mL SUB-Q SCH ×4 (09:20→22:00)
[2020-07-13] MEDS ORDERED: DEXAMETHASONE 4 MG TAB PO SCH (10:00)
[2020-07-13] MEDS ORDERED: CEFEPIME/NS 1 GM/100 ML 1 GM/100 ML BAG IV SCH ×2 (10:00)
--- NOTE | 2020-07-13 11:31 | Consultation ---
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 She is previously unknown to our practice. She presented with c/o epigastric and right upper quadrant pain with radiation to her back for 2 to 3 days with nausea, malaise, fatigue, cough (nonproductive), loss of appetite, loss of taste and smell, weakness, subjective fevers and myalgia. Patient states her pain is sharp, increases with palpitation, decreases with rest and position, is intermittent in nature and rated at a 6/10. Patient denies any sick contacts, recent travels or known exposure to COVID-19. Work-up in the emergency department reveals VAL (CR 2.5/BUN 42), pyelonephritis and cholelithiasis on CT scan, elevated D-dimer (5255), hypokalemia (3.4), elevated LDH (291) and CRP (3.36), UTI. Pt found to have elevated troponin (0.171 -> 0.134 -> 0.130) and thus cardiology has been consulted. Past History Past Medical History: diabetes, hypertension, stroke, other (as per HPI) Past Surgical History: No surgical history Social history: no significant social history Family history: no significant family history Medications and Allergies Allergies Allergy/AdvReac Type Severity Reaction Status Date / Time No Known Allergies Allergy Verified 07/12/20 05:04 Home Medications Medication Instructions Recorded Confirmed Last Taken Type Gabapentin 300 mg PO TID 07/12/20 07/12/20 07/11/20 History Active Meds: Active Medications Acetaminophen (Tylenol) 650 mg PO Q4H PRN PRN Reason: Pain MILD(1-3)/Fever >100.5/FERNANDEZ Dextrose (D50w (25gm) Syringe) 50 ml IV Q30MIN PRN; Protocol PRN Reason: Hypoglycemia Docusate Sodium (Colace) 100 mg PO BID [facility] Last Admin: 07/13/20 09:19 Dose: 100 mg Documented by: Famotidine (Pepcid) 20 mg PO DAILY [facility] Last Admin: 07/13/20 09:18 Dose: 20 mg Documented by: Gabapentin (Gabapentin) 300 mg PO TID [facility] Last Admin: 07/13/20 09:19 Dose: 300 mg Documented by: Heparin Sodium (Porcine) (Heparin) 5,000 unit SUB-Q Q8HR [facility] Last Admin: 07/13/20 06:27 Dose: 5,000 unit Documented by: Sodium Chloride (Nacl 0.9% 1000 Ml) 1,000 mls @ 75 mls/hr IV DIRECT [facility] Last Admin: 07/13/20 06:27 Dose: 75 mls/hr Documented by: Cefepime HCl (Cefepime/Ns 2 Gm/100 Ml) 2 gm in 100 mls @ 200 mls/hr IV Q24HR [facility] Last Admin: 07/13/20 09:18 Dose: 200 mls/hr Documented by: Insulin Human Lispro (Humalog) 0 unit SUB-Q ACHS [facility]; Protocol Last Admin: 07/13/20 09:20 Dose: 3 unit Documented by: Ondansetron HCl (Zofran) 4 mg IV Q8H PRN PRN Reason: Nausea And Vomiting Oxycodone/Acetaminophen (Percocet 5/325) 1 tab PO Q6H PRN PRN Reason: Pain, Moderate (4-6) Last Admin: 07/13/20 09:19 Dose: 1 tab Documented by: Senna (Senokot) 8.6 mg PO Q12HR [facility] Last Admin: 07/13/20 09:18 Dose: 8.6 mg Documented by: Sodium Chloride (Sodium Chloride Flush Syringe 10 Ml) 10 ml IV BID [facility] Last Admin: 07/13/20 09:19 Dose: 10 ml Documented by: Sodium Chloride (Sodium Chloride Flush Syringe 10 Ml) 10 ml IV PRN PRN PRN Reason: LINE FLUSH Review of Systems Constitutional: poor appetite, no weight loss, no weight gain Ears, nose, mouth and throat: no ear pain, no nose pain, no sinus pressure, no sinus pain Cardiovascular: no chest pain, no orthopnea, no palpitations, no rapid/irregular heart beat, no edema, no syncope, no lightheadedness, no shortness of breath, no dyspnea on exertion, no leg edema Respiratory: no cough, no congestion, no wheezing, no pain on inspiration Gastrointestinal: abdominal pain, nausea Genitourinary Female: no pelvic pain, no flank pain, no dysuria, no urinary frequency, no urgency Musculoskeletal: no neck stiffness, no neck pain, no shooting arm pain, no arm numbness/tingling, no low back pain, no shooting leg pain Integumentary: no rash, no pruritis, no redness, no sores, no wounds Neurological: no head injury, no paralysis, no weakness, no parathesias, no numbness, no tingling, no seizures, no syncope Psychiatric: no anxiety Endocrine: no cold intolerance, no heat intolerance Hematologic/Lymphatic: no easy bruising Allergic/Immunologic: no urticaria Physical Examination Vital Signs Temp Pulse Resp BP Pulse Ox 99.7 F H 108 H 18 142/82 96 07/11/20 23:05 07/11/20 23:05 07/11/20 23:05 07/11/20 23:05 07/11/20 23:05 General appearance: no acute distress HEENT: Positive: PERRL, Normocephaly, Mucus Membranes Moist Neck: Positive: neck supple, trachea midline Cardiac: Positive: Reg Rate and Rhythm, S1/S2 Lungs: Positive: Decreased Breath Sounds Neuro: Positive: Grossly Intact Abdomen: Positive: Tender (RUQ) Musculoskeletal: No Pain Extremities: Absent: edema Results 07/12/20 03:38 07/13/20 05:17 Cardiac Enzymes 07/12/20 07/12/20 Range/Units 16:44 19:52 CK-MB (CK-2) 9.2 H 8.8 H (0.0-4.0) ng/mL Comprehensive Metabolic Panel 07/13/20 Range/Units 05:17 Sodium 141 (137-145) mmol/L Potassium 4.4 D (3.6-5.0) mmol/L Chloride 103.1 (98-107) mmol/L Carbon Dioxide 24 (22-30) mmol/L BUN 62 H (7-17) mg/dL Creatinine 3.3 H (0.6-1.2) mg/dL Glucose 230 H (65-100) mg/dL Calcium 8.8 (8.4-10.2) mg/dL - Imaging and Cardiology Echo: pending EKG: report reviewed, image reviewed EKG interpretations - Telemetry EKG Rhythm: Sinus Rhythm - EKG Sinus rhythms and dysrhythmias: sinus rhythm Assessment and Plan CE elevation appears c/w NSTEMI type II. AMI r/o. Pt denies any chest pain. Cont to trend Chad and f/u ECG in AM. Obtain echo. Initiate ASA 81, statin, BB in setting of reported h/o CAD. Further eval/management of abdominal pain and cholelithiasis per primary team. Will follow. The patient has been seen in conjunction with Dr. Meng Vaughn who agrees with the assessment and plan of care. - Patient Problems (1) Acute abdominal pain Current Visit: Yes Status: Acute (2) Cholelithiasis Current Visit: Yes Status: Acute (3) NSTEMI (non-ST elevated myocardial infarction) Current Visit: Yes Status: Acute Plan to address problem: suspect type II (4) HTN (hypertension) Current Visit: Yes Status: Chronic (5) Diabetes mellitus with hyperglycemia Current Visit: Yes Status: Chronic (6) History of CVA (cerebrovascular accident) Current Visit: Yes Status: Chronic (7) Seizure disorder Current Visit: Yes Status: Chronic (8) CAD (coronary artery disease) Current Visit: Yes Status: Chronic Plan to address problem: with h/o AMI per pt report (9) LANNY (obstructive sleep apnea) Current Visit: Yes Status: Chronic (10) VAL (acute kidney injury) Current Visit: Yes Status: Acute (11) UTI (urinary tract infection) Current Visit: Yes Status: Acute (12) Sepsis Current Visit: Yes Status: Suspected (13) Pyelonephritis Current Visit: Yes Status: Acute
--- NOTE | 2020-07-13 13:16 | Progress Note ---
Assessment and Plan Cultures: Blood culture 07/12/2020 pending COVID-19 negative A/P: 64-year-old female past medical history obesity, hypertension, CVA with residual right-sided weakness, MO, diabetes admitted with sepsis likely secondary to pyelonephritis #Acute sepsis: Present with fevers and tachycardia likely secondary to pyelonephritis. Fevers resolved. #Right pyelonephritis: Suspicious on CT with significant pyuria on urinalysis. #Abdominal pain: Questionable passed gallstone given cholelithiasis without inflammation. #CKD: Renally adjust antibiotics Recs: -Continue cefepime renally dosed for now -Follow-up blood and urine cultures Thank you for the consult, we will continue to follow. Sabas Macias MD O: [phone] F: [phone] Subjective Date of service: 07/13/20 Interval history: Afebrile, no acute changes. Covid testing negative. Blood cultures remain negative. Objective - Exam Narrative Exam: Physical exam deferred due to PPE conservation strategy. Please refer to primary team's note. - Constitutional Vitals: Vital Signs Temp Pulse Resp BP Pulse Ox 98.1 F 71 20 154/80 99 07/13/20 04:28 07/13/20 04:28 07/13/20 04:28 07/13/20 04:28 07/13/20 04:28 Temperature -Last 24 Hours Temperature 98.1 F Temperature 98.0 F Temperature 98.0 F Temperature 98.0 F - Labs CBC & Chem 7: 07/12/20 03:38 07/13/20 05:17 Labs: Abnormal lab results 07/12/20 07/12/20 07/12/20 Range/Units 16:44 16:44 17:15 BUN (7-17) mg/dL Creatinine (0.6-1.2) mg/dL Glucose (65-100) mg/dL POC Glucose 240 H (70-105) Hemoglobin A1c 6.7 H (4-6) % Total Creatine Kinase 831 H (30-135) units/L CK-MB (CK-2) 9.2 H (0.0-4.0) ng/mL Troponin T 0.134 H* D (0.00-0.029) ng/mL 07/12/20 07/12/20 07/13/20 Range/Units 19:52 21:26 05:17 BUN 62 H (7-17) mg/dL Creatinine 3.3 H (0.6-1.2) mg/dL Glucose 230 H (65-100) mg/dL POC Glucose 245 H (70-105) Hemoglobin A1c (4-6) % Total Creatine Kinase 787 H (30-135) units/L CK-MB (CK-2) 8.8 H (0.0-4.0) ng/mL Troponin T 0.130 H* (0.00-0.029) ng/mL 07/13/20 Range/Units 08:07 BUN (7-17) mg/dL Creatinine (0.6-1.2) mg/dL Glucose (65-100) mg/dL POC Glucose 266 H (70-105) Hemoglobin A1c (4-6) % Total Creatine Kinase (30-135) units/L CK-MB (CK-2) (0.0-4.0) ng/mL Troponin T (0.00-0.029) ng/mL
--- NOTE | 2020-07-13 16:14 | Progress Note ---
Assessment and Plan - Patient Problems (1) Sepsis Current Visit: Yes Status: Suspected Plan to address problem: Presented with fevers and tachycardia likely secondary to pyonephritis Antibiotic therapy Trend CBC ID consulted 07/12 blood culture x2 NGTD 07/12 urine culture with GNR, sensitivity and speciation to follow (2) Pyelonephritis, acute Current Visit: Yes Status: Acute Plan to address problem: 07/12 CTA abdomen/pelvis without contrast: Atelectatic changes noted in the lung bases. Advanced right hydronephrosis with cortical thinning which is likely chronic, due to chronic UPJ obstruction with asymmetric right perinephric stranding. Cholelithiasis with no biliary dilation or gallbladder inflammation. Cecum and ascending colon are mildly distended with fluid with no intrinsic inflammation. Infectious disease consulted 07/12 urine analysis shows pyuria and leukocyte esterase 07/12 urine culture pending IV antibiotic therapy Trend CBC (3) VAL (acute kidney injury) Current Visit: Yes Status: Acute Plan to address problem: Admit creatinine 2.5/42 07/13 cr/bun 3.3/62 s/p 1500ml NS bolus in ED Trend BMP Avoid nephrotoxic medications Renally dose medications Strict intake and output Nephrology consult requested Strict intake and output (4) NSTEMI (non-ST elevated myocardial infarction) Current Visit: Yes Status: Acute Plan to address problem: type II troponin leak in setting of VAL Trend CE (0.171 -> 0.134 -> 0.130) Patient denies any chest, jaw, upper back, shoulder, left arm pain, diaphoresis or current nausea Cardiology consulted Remote telemetry 07/12 ECG in the ED shows NSR Continue to trend cardiac enzymes and follow-up ECG in the a.m. Obtain echocardiogram Initiated on aspirin 81, statin, beta-emmanuel (5) Acute abdominal pain Current Visit: Yes Status: Acute Plan to address problem: Supportive care Analgesia therapy (6) Suspected 2019 novel coronavirus infection Current Visit: Yes Status: Ruled-out Plan to address problem: 07/12 COVID-19 PCR negative ID consulted S/p dexamethasone in the ED Discontinue dexamethasone 6 mg p.o. daily (07/13-) Discontinue isolation/contact precautions (7) Elevated d-dimer Current Visit: Yes Status: Acute Plan to address problem: Admit D dimer 5255 07/12 VQ scan shows low probability of a pulmonary embolism Trend D-dimerl (8) Hypokalemia Current Visit: Yes Status: Resolved Plan to address problem: Admit potassium 3.4 Repleted in the ED Trend BMP Replete as needed 07/13 potassium 4.4 (9) Cholelithiasis Current Visit: Yes Status: Acute Qualifiers: Cholelithiasis location: gallbladder Cholecystitis presence: without cholecystitis Biliary obstruction: without biliary obstruction Qualified Code(s): K80.20 - Calculus of gallbladder without cholecystitis without obstruction Plan to address problem: 07/12 CT abdomen pelvis without contrast shows cholelithiasis without biliary duct dilation or gallbladder inflammation 07/12 abdominal ultrasound shows cholelithiasis (largest measuring 2 cm) with no gallbladder wall thickening or per cholecystic fluid. Bile ducts are normal with the common bile duct measuring 4 mm No acute intervention needed at this time (10) Diabetes mellitus Current Visit: Yes Status: Chronic Plan to address problem: 07/12 Hemoglobin A1c 6.7 SSI CC renal diet Accu-Cheks ACHS (11) CAD (coronary artery disease) Current Visit: Yes Status: Chronic Plan to address problem: Statin therapy (12) DVT prophylaxis Current Visit: Yes Status: Acute Plan to address problem: GI prophylaxis SCDs to bilateral lower extremities while in bed Subcu heparin History Interval history: This is a 64-year-old female with obesity, HTN, seizure, CVA x2 with residual right-sided weakness (2013,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 Work-up in the emergency department reveals VAL (Cr 2.5/BUN 42), pyelonephritis and cholelithiasis on CT scan, elevated D-dimer (5255), hypokalemia (3.4), elevated LDH (291) and CRP (3.36), urine analysis with leukocyte esterase and pyuria and elevated troponin at 0.171. ID was consulted as she was a Covid 19 PUI. Today there has been a slight increase in her creatinine to 3.3 therefore nephrology has been consulted. Cardiology was consulted for her elevated troponins. Patient denies any chest pain, nausea, vomiting, diaphoresis. Patient states that she feels much better. I spoke to her sister, Shi Corrigan over the phone and updated her on current treatments. 07/12: COVID 19 PCR (-) Hospitalist Physical - Constitutional Vitals: Temp Pulse Resp BP Pulse Ox 98.1 F 71 20 154/80 99 07/13/20 04:28 07/13/20 04:28 07/13/20 04:28 07/13/20 04:28 07/13/20 04:28 General appearance: Present: no acute distress - EENT Eyes: Present: PERRL, EOM intact ENT: hearing intact, clear oral mucosa - Neck Neck: Present: supple, normal ROM - Respiratory Respiratory effort: normal Respiratory: bilateral: diminished - Cardiovascular Rhythm: regular Heart Sounds: Present: S1 & S2. Absent: systolic murmur, diastolic murmur - Extremities Extremities: no ischemia, pulses intact, pulses symmetrical, No edema, normal temperature, normal color, Full ROM Peripheral Pulses: within normal limits - Abdominal General gastrointestinal: soft, tender, non-distended, normal bowel sounds Localized gastrointestinal: tender: RUQ, RLQ - Integumentary Integumentary: Present: warm, dry - Psychiatric Psychiatric: appropriate mood/affect, cooperative - Neurologic Neurologic: CNII-XII intact, no focal deficits, moves all extremities HEART Score - HEART Score EKG: Normal Age: 45-65 Risk factors: 1-2 risk factors Troponin: Troponin T 0.130 ng/mL (0.00-0.029) H* 07/12/20 19:52 Troponin: 1-3x normal limit Results - Labs CBC & Chem 7: 07/12/20 03:38 07/13/20 05:17 Labs: Laboratory Last Values WBC 8.9 K/mm3 (4.5-11.0) 07/12/20 03:38 RBC 4.56 M/mm3 (3.65-5.03) 07/12/20 03:38 Hgb 11.5 gm/dl (10.1-14.3) 07/12/20 03:38 Hct 35.3 % (30.3-42.9) 07/12/20 03:38 MCV 77 fl (79-97) L 07/12/20 03:38 MCH 25 pg (28-32) L 07/12/20 03:38 MCHC 33 % (30-34) 07/12/20 03:38 RDW 15.9 % (13.2-15.2) H 07/12/20 03:38 Plt Count 195 K/mm3 (140-440) 07/12/20 03:38 Lymph % (Auto) 10.5 % (13.4-35.0) L 07/12/20 03:38 Pender % (Auto) 11.3 % (0.0-7.3) H 07/12/20 03:38 Eos % (Auto) 0.1 % (0.0-4.3) 07/12/20 03:38 Baso % (Auto) 0.2 % (0.0-1.8) 07/12/20 03:38 Lymph # (Auto) 0.9 K/mm3 (1.2-5.4) L 07/12/20 03:38 Pender # (Auto) 1.0 K/mm3 (0.0-0.8) H 07/12/20 03:38 Eos # (Auto) 0.0 K/mm3 (0.0-0.4) 07/12/20 03:38 Baso # (Auto) 0.0 K/mm3 (0.0-0.1) 07/12/20 03:38 Seg Neutrophils % 77.9 % (40.0-70.0) H 07/12/20 03:38 Seg Neutrophils # 7.0 K/mm3 (1.8-7.7) 07/12/20 03:38 PT 16.3 Sec. (12.2-14.9) H 07/12/20 03:38 INR 1.29 (0.87-1.13) H 07/12/20 03:38 D-Dimer 5255.25 ng/mlDDU (0-234) H 07/12/20 03:38 Sodium 141 mmol/L (137-145) 07/13/20 05:17 Potassium 4.4 mmol/L (3.6-5.0) D 07/13/20 05:17 Chloride 103.1 mmol/L (98-107) 07/13/20 05:17 Carbon Dioxide 24 mmol/L (22-30) 07/13/20 05:17 Anion Gap 18 mmol/L 07/13/20 05:17 BUN 62 mg/dL (7-17) H 07/13/20 05:17 Creatinine 3.3 mg/dL (0.6-1.2) H 07/13/20 05:17 Estimated GFR 17 ml/min 07/13/20 05:17 BUN/Creatinine Ratio 19 % 07/13/20 05:17 Glucose 230 mg/dL (65-100) H 07/13/20 05:17 POC Glucose 261 (70-105) H 07/13/20 11:15 Hemoglobin A1c 6.7 % (4-6) H 07/12/20 16:44 Lactic Acid 1.60 mmol/L (0.7-2.0) 07/12/20 03:38 Calcium 8.8 mg/dL (8.4-10.2) 07/13/20 05:17 Ferritin 139.8 ng/mL (10.0-200.0) 07/12/20 03:38 Total Bilirubin 0.60 mg/dL (0.1-1.2) 07/12/20 03:38 Direct Bilirubin < 0.2 mg/dL (0-0.2) 07/12/20 03:38 Indirect Bilirubin 0.4 mg/dL 07/12/20 03:38 AST 37 units/L (5-40) 07/12/20 03:38 ALT 19 units/L (7-56) 07/12/20 03:38 Alkaline Phosphatase 80 units/L (35-129) 07/12/20 03:38 Lactate Dehydrogenase 290 units/L (91-180) H 07/12/20 03:38 Lactate Dehydrogenase 291 units/L (91-180) H 07/12/20 03:38 Total Creatine Kinase 787 units/L (30-135) H 07/12/20 19:52 CK-MB (CK-2) 8.8 ng/mL (0.0-4.0) H 07/12/20 19:52 CK-MB (CK-2) Rel Index 1.1 (0-4) 07/12/20 19:52 Troponin T 0.130 ng/mL (0.00-0.029) H* 07/12/20 19:52 C-Reactive Protein 33.50 mg/dL (0.00-1.30) H 07/12/20 03:38 C-Reactive Protein 33.60 mg/dL (0.00-1.30) H 07/12/20 03:38 Total Protein 7.4 g/dL (6.3-8.2) 07/12/20 03:38 Albumin 3.4 g/dL (3.9-5) L 07/12/20 03:38 Albumin/Globulin Ratio 0.9 % 07/12/20 03:38 Triglycerides 115 mg/dL (2-149) 07/12/20 03:38 Cholesterol 111 mg/dL (50-199) 07/12/20 03:38 LDL Cholesterol Direct 33 mg/dL (50-130) L 07/12/20 03:38 HDL Cholesterol 54 mg/dL (40-59) 07/12/20 03:38 Cholesterol/HDL Ratio 2.05 % 07/12/20 03:38 Lipase 28 units/L (13-60) 07/12/20 03:38 Procalcitonin 49.70 ng/mL (<0.15) 07/12/20 11:23 Urine Color Red (Yellow) 07/12/20 04:08 Urine Turbidity Turbid (Clear) 07/12/20 04:08 Urine pH 5.0 (5.0-7.0) 07/12/20 04:08 Ur Specific [place] 1.017 (1.003-1.030) 07/12/20 04:08 Urine Protein 100 mg/dl mg/dL (Negative) 07/12/20 04:08 Urine Glucose (UA) Neg mg/dL (Negative) 07/12/20 04:08 Urine Ketones Neg mg/dL (Negative) 07/12/20 04:08 Urine Blood Lg (Negative) 07/12/20 04:08 Urine Nitrite Neg (Negative) 07/12/20 04:08 Urine Bilirubin Neg (Negative) 07/12/20 04:08 Urine Urobilinogen < 2.0 mg/dL (<2.0) 07/12/20 04:08 Ur Leukocyte Esterase Mod (Negative) 07/12/20 04:08 Urine WBC (Auto) > 182.0 /HPF (0.0-6.0) H 07/12/20 04:08 Urine RBC (Auto) > 182.0 /HPF (0.0-6.0) 07/12/20 04:08 U Epithel Cells (Auto) 16.0 /HPF (0-13.0) H 07/12/20 04:08 Urine Bacteria (Auto) 3+ /HPF (Negative) 07/12/20 04:08 Urine WBC Clumps 3+ /HPF 07/12/20 04:08 Urine Sperm 2+ /HPF ([employer]) 07/12/20 04:08 Coronavirus (PCR) Negative (Negative) 07/12/20 10:51 Microbiology: Microbiology 07/12/20 Unknown Urine,Clean Catch Urine Culture - Preliminary Gram Negative Abdirashid 07/12/20 04:17 Peripheral/Venous Blood Culture - Preliminary NO GROWTH AFTER 24 HOURS 07/12/20 03:38 Peripheral/Venous Blood Culture - Preliminary NO GROWTH AFTER 24 HOURS Tejeda/IV: Voiding Method Toilet IV Catheter Type [Left INT / Saline Lock Antecubital] Active Medications - Current Medications Current Medications: Generic Name Dose Route Start Last Admin Trade Name Freq PRN Reason Stop Dose Admin Acetaminophen 650 mg 07/12/20 11:00 Tylenol PO Q4H PRN Pain MILD(1-3)/Fever >100.5/FERNANDEZ Aspirin 81 mg 07/14/20 10:00 Baby Aspirin PO QDAY TIM Atorvastatin Calcium 20 mg 07/13/20 22:00 Lipitor PO QHS [facility] Dextrose 50 ml 07/12/20 11:45 D50w (25gm) Syringe IV Q30MIN PRN Hypoglycemia Protocol Docusate Sodium 100 mg 07/12/20 22:00 07/13/20 09:19 Colace PO 100 mg BID TIM Administration Famotidine 20 mg 07/13/20 10:00 07/13/20 09:18 Pepcid PO 20 mg DAILY TIM Administration Gabapentin 300 mg 07/13/20 08:00 07/13/20 09:19 Gabapentin PO 300 mg TID TIM Administration Heparin Sodium (Porcine) 5,000 unit 07/12/20 14:00 07/13/20 06:27 Heparin SUB-Q 5,000 unit Q8HR TIM Administration Sodium Chloride 1,000 mls @ 75 mls/hr 07/12/20 15:30 07/13/20 06:27 Nacl 0.9% 1000 Ml IV 75 mls/hr DIRECT TIM Administration Cefepime HCl 2 gm in 100 mls @ 200 mls/hr 07/13/20 10:00 07/13/20 09:18 Cefepime/Ns 2 Gm/100 Ml IV 200 mls/hr Q24HR TIM Administration Insulin Human Lispro 0 unit 07/12/20 16:30 07/13/20 13:06 Humalog SUB-Q 2 unit ACHS TIM Administration Protocol Metoprolol Tartrate 25 mg 07/13/20 22:00 Metoprolol PO BID TIM Ondansetron HCl 4 mg 07/12/20 11:00 Zofran IV Q8H PRN Nausea And Vomiting Oxycodone/Acetaminophen 1 tab 07/12/20 11:00 07/13/20 09:19 Percocet 5/325 PO 1 tab Q6H PRN Administration Pain, Moderate (4-6) Senna 8.6 mg 07/12/20 22:00 07/13/20 09:18 Senokot PO 8.6 mg Q12HR TIM Administration Sodium Chloride 10 ml 07/12/20 22:00 07/13/20 09:19 Sodium Chloride Flush Syringe 10 Ml IV 10 ml BID TIM Administration Sodium Chloride 10 ml 07/12/20 10:31 Sodium Chloride Flush Syringe 10 Ml IV PRN PRN LINE FLUSH
--- NOTE | 2020-07-13 18:18 | Consultation ---
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 Patient states her pain is sharp, increases with palpitation, decreases with rest and position, is intermittent in nature and rated at a 6/10. Patient denies any sick contacts, recent travels or known exposure to COVID-19. Work-up in the emergency department reveals VAL (CR 2.5/BUN 42), pyelonephritis and cho lelithiasis on CT scan, elevated D-dimer (5255), hypokalemia (3.4), elevated LDH (291) and CRP (3.36), urine analysis with leukocyte esterase and pyuria and elevated troponin at 0.171. She is on supplemental oxygen at this time consistent with acute respiratory distress. She will be admitted to the hospital service with a complicated urinary tract infection and is a COVID-19 PUI. Infectious disease has been consulted and she has been initiated on empiric antibiotics and steroids. Primary care doctor: Dr German Torres Past medical history: Obesity, hypertension, seizure, stroke, abdominal surgical history includes myomectomy and hysterectomy This is a 64-year-old female. She is not known to myself previously. She presents to the ER with a complaint of epigastric and right upper quadrant pain, that radiates to the back, present for 2 to 3 days, nausea, malaise, fatigue, cough, loss of taste, loss of smell, weakness and myalgias. Patient reports that she has been self isolating and self quarantining. She reports that she does not have any COVID contacts that she is aware of. She denies DVT and pulmonary embolism risk factors. She also has a mild headache, which is throbbing, not sudden or thunderclap in nature, not maximal in intensity, and not the worst headache of her life. She is never had pain or symptoms like this before that she is aware of. Abdominal pain is sharp, increases with palpation, decreases with rest and position. -: Gradual, days(s) Location: abdomen Radiation: back Quality: aching Consistency: intermittent Improves with: rest Worsens with: movement Constitutional: fever, malaise, weakness Eyes: denies: eye discharge ENT: denies: epistaxis Respiratory: cough, shortness of breath Cardiovascular: palpitations. denies: chest pain Gastrointestinal: abdominal pain, nausea. denies: vomiting Genitourinary: denies: dysuria Musculoskeletal: back pain Neurological: weakness Hematological/Lymphatic: denies: easy bleeding - Past Medical History Previous Medical History?: Yes Hx CVA: Yes (right side weakness) Hx Seizures: Yes (02/03/20 became unconscious) Additional medical history: TIA X14 had seizure after the last one became unconscious - Surgical History Past Surgical History?: Yes Additional Surgical History: B/L Knee, carpal tunnel, kidney stents, - Social History Smoking Status: Unknown if ever smoked Past History Past Medical History: diabetes, hypertension, stroke, other (as per HPI) Past Surgical History: No surgical history Social history: no significant social history Family history: no significant family history Medications and Allergies Allergies Allergy/AdvReac Type Severity Reaction Status Date / Time No Known Allergies Allergy Verified 07/12/20 05:04 Home Medications Medication Instructions Recorded Confirmed Last Taken Type Gabapentin 300 mg PO TID 07/12/20 07/12/20 07/11/20 History Active Meds: Active Medications Acetaminophen (Tylenol) 650 mg PO Q4H PRN PRN Reason: Pain MILD(1-3)/Fever >100.5/FERNANDEZ Aspirin (Baby Aspirin) 81 mg PO QDAY [facility] Atorvastatin Calcium (Lipitor) 20 mg PO QHS [facility] Dextrose (D50w (25gm) Syringe) 50 ml IV Q30MIN PRN; Protocol PRN Reason: Hypoglycemia Docusate Sodium (Colace) 100 mg PO BID [facility] Last Admin: 07/13/20 09:19 Dose: 100 mg Documented by: Famotidine (Pepcid) 20 mg PO DAILY [facility] Last Admin: 07/13/20 09:18 Dose: 20 mg Documented by: Gabapentin (Gabapentin) 300 mg PO TID [facility] Last Admin: 07/13/20 17:49 Dose: 300 mg Documented by: Heparin Sodium (Porcine) (Heparin) 5,000 unit SUB-Q Q8HR [facility] Last Admin: 07/13/20 17:49 Dose: 5,000 unit Documented by: Sodium Chloride (Nacl 0.9% 1000 Ml) 1,000 mls @ 75 mls/hr IV DIRECT [facility] Last Admin: 07/13/20 06:27 Dose: 75 mls/hr Documented by: Cefepime HCl (Cefepime/Ns 2 Gm/100 Ml) 2 gm in 100 mls @ 200 mls/hr IV Q24HR [facility] Last Admin: 07/13/20 09:18 Dose: 200 mls/hr Documented by: Insulin Human Lispro (Humalog) 0 unit SUB-Q ACHS [facility]; Protocol Last Admin: 07/13/20 17:50 Dose: 2 unit Documented by: Metoprolol Tartrate (Metoprolol) 25 mg PO BID [facility] Ondansetron HCl (Zofran) 4 mg IV Q8H PRN PRN Reason: Nausea And Vomiting Oxycodone/Acetaminophen (Percocet 5/325) 1 tab PO Q6H PRN PRN Reason: Pain, Moderate (4-6) Last Admin: 07/13/20 09:19 Dose: 1 tab Documented by: Senna (Senokot) 8.6 mg PO Q12HR [facility] Last Admin: 07/13/20 09:18 Dose: 8.6 mg Documented by: Sodium Chloride (Sodium Chloride Flush Syringe 10 Ml) 10 ml IV BID [facility] Last Admin: 07/13/20 09:19 Dose: 10 ml Documented by: Sodium Chloride (Sodium Chloride Flush Syringe 10 Ml) 10 ml IV PRN PRN PRN Reason: LINE FLUSH Exam - Vital Signs Vital signs: Vital Signs Temp Pulse Resp BP Pulse Ox 99.7 F H 108 H 18 142/82 96 07/11/20 23:05 07/11/20 23:05 07/11/20 23:05 07/11/20 23:05 07/11/20 23:05 - Physical Exam Narrative exam: - General Limitations: No Limitations General appearance: alert, anxious, in distress, obese - Head Head exam: Present: atraumatic, normocephalic - Eye Eye exam: Present: normal appearance, EOMI. Absent: nystagmus - ENT ENT exam: Present: normal exam, normal orophraynx, mucous membranes moist, normal external ear exam - Neck Neck exam: Present: normal inspection, full ROM. Absent: tenderness, meningismus - Respiratory Respiratory exam: Present: decreased breath sounds. Absent: respiratory distress, wheezes, rales, rhonchi, stridor - Cardiovascular Cardiovascular Exam: Present: normal rhythm, tachycardia, normal heart sounds. Absent: systolic murmur, diastolic murmur, rubs, gallop - GI/Abdominal GI/Abdominal exam: Present: soft, tenderness (There is right upper quadrant tenderness. There is a positive right upper quadrant Tang sign.), normal bowel sounds. Absent: distended, guarding, rebound, rigid - Extremities Exam Extremities exam: Present: normal inspection, full ROM, other (2+ pulses noted in the bilateral upper and lower extremities. There is no palpable cord. negative Homans sign. Muscular compartments are soft. The pelvis is stable.). Absent: pedal edema, calf tenderness - Back Exam Back exam: Present: normal inspection, full ROM, CVA tenderness (R). Absent: tenderness, paraspinal tenderness, vertebral tenderness - Neurological Exam Neurological exam: Present: alert, oriented X3, other (No facial droop. Tongue midline. Extraocular movements intact bilaterally. Facial sensation intact to light touch in V1, V2, V3 distribution bilaterally. 5 and a 5 strength in 4 extremities. Sensation intact to light touch in 4 extremities.). Absent: motor sensory deficit - Psychiatric Psychiatric exam: Present: anxious - Skin Skin exam: Present: warm, dry, intact, normal color. Absent: rash Results - Lab Results 07/12/20 03:38 07/13/20 05:17 Most recent lab results Calcium 8.8 mg/dL (8.4-10.2) 07/13/20 05:17 Assessment and Plan Impression: * VAL * Sepsis * NSTEMI * Pyelonephritis * HTN * type 2 DM * Seizures * Right hydronephrosis * urinary obstruction * Abdominal Pain PlaN; * iv abx and ivfs * avoid nephrotoxins * place batres catheter, needs urology evaluation * keep MAP .65 * cards notes reviewed, NSTEMI noted * COvid testing noted * strict i/os * daily lytes * no indication for hd today
[2020-07-13] MEDS: METOPROLOL TARTRATE 25 MG TAB PO SCH (22:14)
[2020-07-14] MEDS: HEPARIN 5,000 UNIT/1 ML VIAL SUB-Q SCH ×3 (05:43→22:38)
[2020-07-14] MEDS: SODIUM CHLORIDE 0.9% 1000 ML 1,000 ML IV SCH ×2 (05:55→22:38)
[2020-07-14] MEDS: oxyCODONE /ACETAMINOPHEN 5-325MG TAB PO PRN ×2 (05:55→18:21)
[2020-07-14 06:47] LABS: Basophils % (Auto) 0.2 % (0.0-1.8); Eosinophils # (Auto) 0.4 K/mm3 (0.0-0.4); Hemoglobin 9.8 gm/dl (10.1-14.3); Lymphocytes % (Auto) 16.9 % (13.4-35.0); Mean Corpuscular HGB Conc 33 % (30-34); Mean Corpuscular Volume 78 fl (79-97); Monocytes # (Auto) 0.7 K/mm3 (0.0-0.8); Monocytes % (Auto) 13.1 % (0.0-7.3); Platelet Count 171 K/mm3 (140-440); Red Blood Count 3.84 M/mm3 (3.65-5.03); Red Cell Distribution Width 15.8 % (13.2-15.2)
[2020-07-14 07:01] LABS: Calcium 8.7 mg/dL (8.4-10.2)
[2020-07-14 07:07] LABS: Alanine Aminotransferase 25 units/L (7-56); BUN/Creatinine Ratio 22; Blood Urea Nitrogen 67 mg/dL (7-17); Calcium 8.8 mg/dL (8.4-10.2); Hemolysis Index 2
[2020-07-14] MEDS: INSULIN LISPRO 100 UNIT/ML VIAL 3 mL SUB-Q SCH ×4 (08:00→22:40)
--- NOTE | 2020-07-14 09:05 | Progress Note ---
Hospitalist Physical - Constitutional Vitals: Temp Pulse Resp BP Pulse Ox 97.8 F 76 18 131/82 96 07/14/20 04:57 07/14/20 04:57 07/14/20 05:55 07/14/20 04:57 07/14/20 04:57 General appearance: Present: no acute distress HEART Score - HEART Score EKG: Normal Age: 45-65 Risk factors: 1-2 risk factors Troponin: Troponin T 0.104 ng/mL (0.00-0.029) H* 07/14/20 05:55 Troponin: 1-3x normal limit Results - Labs CBC & Chem 7: 07/14/20 05:55 07/14/20 05:55 Labs: Laboratory Last Values WBC 5.7 K/mm3 (4.5-11.0) 07/14/20 05:55 RBC 3.84 M/mm3 (3.65-5.03) 07/14/20 05:55 Hgb 9.8 gm/dl (10.1-14.3) L 07/14/20 05:55 Hct 30.0 % (30.3-42.9) L 07/14/20 05:55 MCV 78 fl (79-97) L 07/14/20 05:55 MCH 25 pg (28-32) L 07/14/20 05:55 MCHC 33 % (30-34) 07/14/20 05:55 RDW 15.8 % (13.2-15.2) H 07/14/20 05:55 Plt Count 171 K/mm3 (140-440) 07/14/20 05:55 Lymph % (Auto) 16.9 % (13.4-35.0) 07/14/20 05:55 [place] % (Auto) 13.1 % (0.0-7.3) H 07/14/20 05:55 Eos % (Auto) 7.0 % (0.0-4.3) H 07/14/20 05:55 Baso % (Auto) 0.2 % (0.0-1.8) 07/14/20 05:55 Lymph # (Auto) 1.0 K/mm3 (1.2-5.4) L 07/14/20 05:55 [place] # (Auto) 0.7 K/mm3 (0.0-0.8) 07/14/20 05:55 Eos # (Auto) 0.4 K/mm3 (0.0-0.4) 07/14/20 05:55 Baso # (Auto) 0.0 K/mm3 (0.0-0.1) 07/14/20 05:55 Seg Neutrophils % 62.8 % (40.0-70.0) 07/14/20 05:55 Seg Neutrophils # 3.6 K/mm3 (1.8-7.7) 07/14/20 05:55 PT 16.3 Sec. (12.2-14.9) H 07/12/20 03:38 INR 1.29 (0.87-1.13) H 07/12/20 03:38 D-Dimer 5255.25 ng/mlDDU (0-234) H 07/12/20 03:38 Sodium 142 mmol/L (137-145) 07/14/20 05:55 Sodium 143 mmol/L (137-145) 07/14/20 05:55 Potassium 3.9 mmol/L (3.6-5.0) 07/14/20 05:55 Potassium 4.1 mmol/L (3.6-5.0) 07/14/20 05:55 Chloride 105.4 mmol/L (98-107) 07/14/20 05:55 Chloride 105.9 mmol/L (98-107) 07/14/20 05:55 Carbon Dioxide 23 mmol/L (22-30) 07/14/20 05:55 Carbon Dioxide 23 mmol/L (22-30) 07/14/20 05:55 Anion Gap 18 mmol/L 07/14/20 05:55 Anion Gap 18 mmol/L 07/14/20 05:55 BUN 67 mg/dL (7-17) H 07/14/20 05:55 BUN 68 mg/dL (7-17) H 07/14/20 05:55 Creatinine 2.8 mg/dL (0.6-1.2) H 07/14/20 05:55 Creatinine 3.0 mg/dL (0.6-1.2) H 07/14/20 05:55 Estimated GFR 19 ml/min 07/14/20 05:55 Estimated GFR 21 ml/min 07/14/20 05:55 BUN/Creatinine Ratio 22 % 07/14/20 05:55 BUN/Creatinine Ratio 24 % 07/14/20 05:55 Glucose 199 mg/dL (65-100) H 07/14/20 05:55 Glucose 204 mg/dL (65-100) H 07/14/20 05:55 POC Glucose 185 (70-105) H 07/14/20 08:01 Hemoglobin A1c 6.7 % (4-6) H 07/12/20 16:44 Lactic Acid 1.60 mmol/L (0.7-2.0) 07/12/20 03:38 Calcium 8.7 mg/dL (8.4-10.2) 07/14/20 05:55 Calcium 8.8 mg/dL (8.4-10.2) 07/14/20 05:55 Ferritin 139.8 ng/mL (10.0-200.0) 07/12/20 03:38 Total Bilirubin < 0.20 mg/dL (0.1-1.2) 07/14/20 05:55 Direct Bilirubin < 0.2 mg/dL (0-0.2) 07/12/20 03:38 Indirect Bilirubin 0.4 mg/dL 07/12/20 03:38 AST 24 units/L (5-40) 07/14/20 05:55 ALT 25 units/L (7-56) 07/14/20 05:55 Alkaline Phosphatase 57 units/L (35-129) 07/14/20 05:55 Lactate Dehydrogenase 290 units/L (91-180) H 07/12/20 03:38 Lactate Dehydrogenase 291 units/L (91-180) H 07/12/20 03:38 Total Creatine Kinase 787 units/L (30-135) H 07/12/20 19:52 CK-MB (CK-2) 8.8 ng/mL (0.0-4.0) H 07/12/20 19:52 CK-MB (CK-2) Rel Index 1.1 (0-4) 07/12/20 19:52 Troponin T 0.104 ng/mL (0.00-0.029) H* 07/14/20 05:55 C-Reactive Protein 33.50 mg/dL (0.00-1.30) H 07/12/20 03:38 C-Reactive Protein 33.60 mg/dL (0.00-1.30) H 07/12/20 03:38 Total Protein 6.5 g/dL (6.3-8.2) 07/14/20 05:55 Albumin 3.0 g/dL (3.9-5) L 07/14/20 05:55 Albumin/Globulin Ratio 0.9 % 07/14/20 05:55 Triglycerides 115 mg/dL (2-149) 07/12/20 03:38 Cholesterol 111 mg/dL (50-199) 07/12/20 03:38 LDL Cholesterol Direct 33 mg/dL (50-130) L 07/12/20 03:38 HDL Cholesterol 54 mg/dL (40-59) 07/12/20 03:38 Cholesterol/HDL Ratio 2.05 % 07/12/20 03:38 Lipase 28 units/L (13-60) 07/12/20 03:38 Procalcitonin 49.70 ng/mL (<0.15) 07/12/20 11:23 Urine Color Red (Yellow) 07/12/20 04:08 Urine Turbidity Turbid (Clear) 07/12/20 04:08 Urine pH 5.0 (5.0-7.0) 07/12/20 04:08 Ur Specific Petros 1.017 (1.003-1.030) 07/12/20 04:08 Urine Protein 100 mg/dl mg/dL (Negative) 07/12/20 04:08 Urine Glucose (UA) Neg mg/dL (Negative) 07/12/20 04:08 Urine Ketones Neg mg/dL (Negative) 07/12/20 04:08 Urine Blood Lg (Negative) 07/12/20 04:08 Urine Nitrite Neg (Negative) 07/12/20 04:08 Urine Bilirubin Neg (Negative) 07/12/20 04:08 Urine Urobilinogen < 2.0 mg/dL (<2.0) 07/12/20 04:08 Ur Leukocyte Esterase Mod (Negative) 07/12/20 04:08 Urine WBC (Auto) > 182.0 /HPF (0.0-6.0) H 07/12/20 04:08 Urine RBC (Auto) > 182.0 /HPF (0.0-6.0) 07/12/20 04:08 U Epithel Cells (Auto) 16.0 /HPF (0-13.0) H 07/12/20 04:08 Urine Bacteria (Auto) 3+ /HPF (Negative) 07/12/20 04:08 Urine WBC Clumps 3+ /HPF 07/12/20 04:08 Urine Sperm 2+ /HPF (SOFTWARE SOLUTIONS ARCHITECT) 07/12/20 04:08 Coronavirus (PCR) Negative (Negative) 07/12/20 10:51 Microbiology: Microbiology 07/12/20 04:17 Peripheral/Venous Blood Culture - Preliminary NO GROWTH AFTER 48 HOURS 07/12/20 03:38 Peripheral/Venous Blood Culture - Preliminary NO GROWTH AFTER 48 HOURS 07/12/20 Unknown Urine,Clean Catch Urine Culture - Preliminary Gram Negative Abdirashid Etjeda/IV: Voiding Method Toilet IV Catheter Type [Left INT / Saline Lock Antecubital] Active Medications - Current Medications Current Medications: Generic Name Dose Route Start Last Admin Trade Name Freq PRN Reason Stop Dose Admin Acetaminophen 650 mg 07/12/20 11:00 Tylenol PO Q4H PRN Pain MILD(1-3)/Fever >100.5/FERNANDEZ Aspirin 81 mg 07/14/20 10:00 Baby Aspirin PO QDAY TIM Atorvastatin Calcium 20 mg 07/13/20 22:00 07/13/20 22:14 Lipitor PO 20 mg QHS TIM Administration Dextrose 50 ml 07/12/20 11:45 D50w (25gm) Syringe IV Q30MIN PRN Hypoglycemia Protocol Docusate Sodium 100 mg 07/12/20 22:00 07/13/20 22:14 Colace PO 100 mg BID TIM Administration Famotidine 20 mg 07/13/20 10:00 07/13/20 09:18 Pepcid PO 20 mg DAILY TIM Administration Gabapentin 300 mg 07/13/20 08:00 07/13/20 20:00 Gabapentin PO 300 mg TID TIM Administration Heparin Sodium (Porcine) 5,000 unit 07/12/20 14:00 07/14/20 05:43 Heparin SUB-Q 5,000 unit Q8HR TIM Administration Sodium Chloride 1,000 mls @ 75 mls/hr 07/12/20 15:30 07/14/20 05:55 Nacl 0.9% 1000 Ml IV 75 mls/hr DIRECT TIM Administration Cefepime HCl 2 gm in 100 mls @ 200 mls/hr 07/13/20 10:00 07/13/20 09:18 Cefepime/Ns 2 Gm/100 Ml IV 200 mls/hr Q24HR TIM Administration Insulin Human Lispro 0 unit 07/12/20 16:30 07/13/20 22:00 Humalog SUB-Q 3 unit ACHS TIM Administration Protocol Metoprolol Tartrate 25 mg 07/13/20 22:00 07/13/20 22:14 Metoprolol PO 25 mg BID TIM Administration Ondansetron HCl 4 mg 07/12/20 11:00 Zofran IV Q8H PRN Nausea And Vomiting Oxycodone/Acetaminophen 1 tab 07/12/20 11:00 07/14/20 05:55 Percocet 5/325 PO 1 tab Q6H PRN Administration Pain, Moderate (4-6) Senna 8.6 mg 07/12/20 22:00 07/13/20 22:14 Senokot PO 8.6 mg Q12HR TIM Administration Sodium Chloride 10 ml 07/12/20 22:00 07/13/20 22:00 Sodium Chloride Flush Syringe 10 Ml IV 10 ml BID TIM Administration Sodium Chloride 10 ml 07/12/20 10:31 Sodium Chloride Flush Syringe 10 Ml IV PRN PRN LINE FLUSH
[2020-07-14] MEDS: CEFEPIME/NS 2 GM/100 ML 2 GM/100 ML BAG IV SCH (09:36)
[2020-07-14] MEDS: GABAPENTIN 300 MG CAP PO SCH ×3 (09:37→22:37)
[2020-07-14] MEDS: ASPIRIN 81 MG TAB CHEW PO SCH (09:37)
[2020-07-14] MEDS: FAMOTIDINE 20 MG TAB PO SCH (09:37)
[2020-07-14] MEDS: METOPROLOL TARTRATE 25 MG TAB PO SCH ×2 (09:37→22:38)
[2020-07-14] MEDS: DOCUSATE SODIUM 100 MG CAP PO SCH ×2 (09:40→22:37)
[2020-07-14] MEDS: SENNOSIDES 8.6 MG TAB PO SCH ×2 (09:40→22:39)
--- NOTE | 2020-07-14 09:40 | Progress Note ---
Assessment and Plan - Patient Problems (1) Sepsis Current Visit: Yes Status: Suspected Plan to address problem: Presented with fevers and tachycardia likely secondary to pyonephritis on admission Continue with Antibiotic therapy-cefepime Monitor CBC ID consult urine and blood culture-f/u with result (2) Pyelonephritis, acute Current Visit: Yes Status: Acute Plan to address problem: 07/12 CTA abdomen/pelvis shows advanced right hydronephrosis-due to chronic UPJ obstruction with asymmetric right perinephric stranding. Cholelithiasis with no biliary dilation or gallbladder inflammation. 07/12 US shows pyuria and leukocyte esterase 07/12 urine culture pending Continue IV antibiotic therapy (3) VAL (acute kidney injury) possible 2/2 to pyelonephritis Current Visit: Yes Status: Acute Plan to address problem: Monitor kidney function and Avoid nephrotoxic medications Monitor i/o Nephrology consult (4) NSTEMI (non-ST elevated myocardial infarction) Current Visit: Yes Status: Acute Plan to address problem: Elevated troponine in setting of VAL r/o IL patient denies chest pain Trend CE (0.171 -> 0.134 -> 0.130) Patient denies any chest, jaw, upper back, shoulder, left arm pain, diaphoresis or current nausea Cardiology consulted-input appreciated Initiate ASA 81, statin, BB in setting of reported h/o CAD. echocardiogram and EKG Continue cardio protective measures aspirin 81, statin, beta-emmanuel (5) Acute abdominal pain likely 2/2 to pyeloneophritis Current Visit: Yes Status: Acute Plan to address problem: Continue pain management (6) Suspected 2019 novel coronavirus infection Current Visit: Yes Status: Ruled-out Plan to address problem: 07/12 COVID-19 PCR negative (7) Elevated d-dimer Current Visit: Yes Status: Acute Plan to address problem: Admit D dimer 5255 07/12 VQ scan shows low probability of a pulmonary embolism Trend D-dimerl (8) Hypokalemia-resolved Current Visit: Yes Status: Resolved Plan to address problem: Monitor electrolytes and Replete as needed 07/13 potassium 4.4 (9) Cholelithiasis Current Visit: Yes Status: Acute Qualifiers: Cholelithiasis location: gallbladder Cholecystitis presence: without cholecystitis Biliary obstruction: without biliary obstruction Qualified Code(s): K80.20 - Calculus of gallbladder without cholecystitis without obstruction Plan to address problem: 07/12 CT abdomen pelvis without contrast shows cholelithiasis without biliary duct dilation or gallbladder inflammation 07/12 abdominal ultrasound shows cholelithiasis (largest measuring 2 cm) with no gallbladder wall thickening or per cholecystic fluid. Bile ducts are normal with the common bile duct measuring 4 mm No acute intervention needed at this time (10) Diabetes mellitus Current Visit: Yes Status: Chronic Plan to address problem: Monitor blood sugar with SSI 07/12 Hemoglobin A1c 6.7 (11) CAD (coronary artery disease) Current Visit: Yes Status: Chronic Plan to address problem: Statin therapy (12) DVT prophylaxis Current Visit: Yes Status: Acute Plan to address problem: GI prophylaxis SCDs to bilateral lower extremities while in bed Subcu heparin History Interval history: - Patient Problems (1) Hydronephrosis, right Current Visit: Yes Status: Acute Plan to address problem: Likely due to urinary obstruction Sales Receptionist following Tejeda placed urologist consult Subjective Date of service: 07/14/20 Principal diagnosis: Epigastric pain Interval history: patient seen at bedside. Reviewed lab, mar, and v/s patient seen at bedside. She reports urine urgency and frequency Positive for pyelonephritis and hydronephrosis Reviewed master control supervisor note-input appreciated Will continue IV hydration and abx Objective - Constitutional Vitals: Vital Signs - 12hr 07/13/20 07/13/20 07/14/20 22:07 22:14 04:13 Temperature 97.8 F Pulse Rate 745 H 74 Respiratory 18 16 Rate Blood Pressure 129/84 131/82 Blood Pressure [Right] O2 Sat by Pulse 95 Oximetry 07/14/20 07/14/20 07/14/20 04:57 05:55 09:37 Temperature 97.8 F Pulse Rate 76 76 Respiratory 16 18 Rate Blood Pressure 131/82 Blood Pressure 131/82 [Right] O2 Sat by Pulse 96 Oximetry General appearance: Present: no acute distress, well-nourished - EENT Eyes: PERRL, EOM intact ENT: hearing intact, clear oral mucosa Ears: bilateral: normal - Neck Neck: supple, normal ROM - Respiratory Respiratory effort: normal Respiratory: bilateral: CTA - Breasts Breasts: normal - Cardiovascular Rhythm: regular Heart Sounds: Present: S1 & S2. Absent: gallop, rub Extremities: pulses intact, No edema, normal color, Full ROM - Gastrointestinal General gastrointestinal: Present: soft, non-tender, non-distended, normal bowel sounds - Genitourinary Female genitourinary: normal, other (urine urgency and frequency) - Integumentary Integumentary: clear, warm, dry - Musculoskeletal Musculoskeletal: 1, strength equal bilaterally - Neurologic Neurologic: moves all extremities - Psychiatric Psychiatric: memory intact, appropriate mood/affect, intact judgment & insight - Allied health notes Allied health notes reviewed: nursing - Labs CBC & Chem 7: 07/14/20 05:55 07/14/20 05:55 Labs: Abnormal lab results 07/13/20 07/13/20 07/13/20 Range/Units 11:15 16:47 21:38 Hgb (10.1-14.3) gm/dl Hct (30.3-42.9) % MCV (79-97) fl MCH (28-32) pg RDW (13.2-15.2) % [place] % (Auto) (0.0-7.3) % Eos % (Auto) (0.0-4.3) % Lymph # (Auto) (1.2-5.4) K/mm3 BUN (7-17) mg/dL Creatinine (0.6-1.2) mg/dL Glucose (65-100) mg/dL POC Glucose 261 H 230 H 266 H (70-105) Troponin T (0.00-0.029) ng/mL Albumin (3.9-5) g/dL 07/14/20 07/14/20 07/14/20 Range/Units 05:55 05:55 05:55 Hgb 9.8 L (10.1-14.3) gm/dl Hct 30.0 L (30.3-42.9) % MCV 78 L (79-97) fl MCH 25 L (28-32) pg RDW 15.8 H (13.2-15.2) % [place] % (Auto) 13.1 H (0.0-7.3) % Eos % (Auto) 7.0 H (0.0-4.3) % Lymph # (Auto) 1.0 L (1.2-5.4) K/mm3 BUN 67 H 68 H (7-17) mg/dL Creatinine 3.0 H 2.8 H (0.6-1.2) mg/dL Glucose 199 H 204 H (65-100) mg/dL POC Glucose (70-105) Troponin T 0.104 H* (0.00-0.029) ng/mL Albumin 3.0 L (3.9-5) g/dL 07/14/20 Range/Units 08:01 Hgb (10.1-14.3) gm/dl Hct (30.3-42.9) % MCV (79-97) fl MCH (28-32) pg RDW (13.2-15.2) % [place] % (Auto) (0.0-7.3) % Eos % (Auto) (0.0-4.3) % Lymph # (Auto) (1.2-5.4) K/mm3 BUN (7-17) mg/dL Creatinine (0.6-1.2) mg/dL Glucose (65-100) mg/dL POC Glucose 185 H (70-105) Troponin T (0.00-0.029) ng/mL Albumin (3.9-5) g/dL HEART Score - HEART Score EKG: Normal Age: 45-65 Risk factors: 1-2 risk factors Troponin: Troponin T 0.104 ng/mL (0.00-0.029) H* 07/14/20 05:55 Troponin: 1-3x normal limit
--- NOTE | 2020-07-14 11:58 | Progress Note ---
Assessment and Plan Impression: * VAL * Sepsis * NSTEMI * Pyelonephritis * HTN * type 2 DM * Seizures * Right hydronephrosis * urinary obstruction * Abdominal Pain PlaN; * iv abx and ivfs * cr is stable today * avoid nephrotoxins * placed batres catheter, needs urology evaluation * keep MAP .65 * cards notes reviewed, NSTEMI noted * COvid testing noted * strict i/os * daily lytes * no indication for hd today Subjective Date of service: 07/14/20 Principal diagnosis: Epigastric pain Interval history: resting well in bed today Objective - Exam Narrative Exam: - General Limitations: No Limitations General appearance: alert, anxious, in distress, obese - Head Head exam: Present: atraumatic, normocephalic - Eye Eye exam: Present: normal appearance, EOMI. Absent: nystagmus - ENT ENT exam: Present: normal exam, normal orophraynx, mucous membranes moist, normal external ear exam - Neck Neck exam: Present: normal inspection, full ROM. Absent: tenderness, meningismus - Respiratory Respiratory exam: Present: decreased breath sounds. Absent: respiratory distress, wheezes, rales, rhonchi, stridor - Cardiovascular Cardiovascular Exam: Present: normal rhythm, tachycardia, normal heart sounds. Absent: systolic murmur, diastolic murmur, rubs, gallop - GI/Abdominal GI/Abdominal exam: Present: soft, tenderness (There is right upper quadrant tenderness. There is a positive right upper quadrant Tang sign.), normal bowel sounds. Absent: distended, guarding, rebound, rigid - Extremities Exam Extremities exam: Present: normal inspection, full ROM, other (2+ pulses noted in the bilateral upper and lower extremities. There is no palpable cord. negative Homans sign. Muscular compartments are soft. The pelvis is stable.). Absent: pedal edema, calf tenderness - Back Exam Back exam: Present: normal inspection, full ROM, CVA tenderness (R). Absent: tenderness, paraspinal tenderness, vertebral tenderness - Neurological Exam Neurological exam: Present: alert, oriented X3, other (No facial droop. Tongue midline. Extraocular movements intact bilaterally. Facial sensation intact to light touch in V1, V2, V3 distribution bilaterally. 5 and a 5 strength in 4 extremities. Sensation intact to light touch in 4 extremities.). Absent: motor sensory deficit - Psychiatric Psychiatric exam: Present: anxious - Skin Skin exam: Present: warm, dry, intact, normal color. Absent: rash - Vital Signs Vital signs: Vital Signs - 12hr 07/14/20 07/14/20 07/14/20 04:13 04:57 05:55 Temperature 97.8 F 97.8 F Pulse Rate 76 Respiratory 16 16 18 Rate Blood Pressure 131/82 Blood Pressure 131/82 [Right] O2 Sat by Pulse 96 Oximetry 07/14/20 09:37 Temperature Pulse Rate 76 Respiratory Rate Blood Pressure 131/82 Blood Pressure [Right] O2 Sat by Pulse Oximetry - Lab 07/14/20 05:55 07/14/20 05:55 Most recent lab results Calcium 8.7 mg/dL (8.4-10.2) 07/14/20 05:55 Calcium 8.8 mg/dL (8.4-10.2) 07/14/20 05:55 Medications & Allergies - Medications Allergies/Adverse Reactions: Allergies No Known Allergies Allergy (Verified 07/12/20 05:04) Home Medications: Home Medications Medication Instructions Recorded Confirmed Last Taken Type Gabapentin 300 mg PO TID 07/12/20 07/12/20 07/11/20 History Aspirin 325 mg PO QDAY 07/13/20 07/13/20 Unknown History Atorvastatin [Lipitor Tab] 80 mg PO DAILY 07/13/20 07/13/20 Unknown History HYDROcodone/ACETAMINOPHEN 1 each PO TID 07/13/20 07/13/20 Unknown History [Hydrocodone-Acetamin 7.5-300] Insulin Glargine [Lantus VIAL] 32 units SQ HS 07/13/20 07/13/20 Unknown History Losartan [Cozaar] 50 mg PO QDAY 07/13/20 07/13/20 Unknown History Lutein 20 mg PO DAILY 07/13/20 07/13/20 Unknown History NIFEdipine [Nifedipine ER] 60 mg PO DAILY 07/13/20 07/13/20 Unknown History SUMAtriptan succinate [SUMAtriptan 100 mg PO DAILY 07/13/20 07/13/20 Unknown History Succinate] Sertraline [Zoloft] 100 mg PO QDAY 07/13/20 07/13/20 Unknown History levETIRAcetam [Keppra TAB] 500 mg PO BID 07/13/20 07/13/20 Unknown History Active Medications: Generic Name Dose Route Start Last Admin Trade Name Freq PRN Reason Stop Dose Admin Acetaminophen 650 mg 07/12/20 11:00 Tylenol PO Q4H PRN Pain MILD(1-3)/Fever >100.5/FERNANDEZ Aspirin 81 mg 07/14/20 10:00 07/14/20 09:37 Baby Aspirin PO 81 mg QDAY TIM Administration Atorvastatin Calcium 20 mg 07/13/20 22:00 07/13/20 22:14 Lipitor PO 20 mg QHS TIM Administration Dextrose 50 ml 07/12/20 11:45 D50w (25gm) Syringe IV Q30MIN PRN Hypoglycemia Protocol Docusate Sodium 100 mg 07/12/20 22:00 07/14/20 09:40 Colace PO Not Given BID TIM Famotidine 20 mg 07/13/20 10:00 07/14/20 09:37 Pepcid PO 20 mg DAILY TIM Administration Gabapentin 300 mg 07/13/20 08:00 07/14/20 09:37 Gabapentin PO 300 mg TID TIM Administration Heparin Sodium (Porcine) 5,000 unit 07/12/20 14:00 07/14/20 05:43 Heparin SUB-Q 5,000 unit Q8HR TIM Administration Sodium Chloride 1,000 mls @ 75 mls/hr 07/12/20 15:30 07/14/20 05:55 Nacl 0.9% 1000 Ml IV 75 mls/hr DIRECT TIM Administration Cefepime HCl 2 gm in 100 mls @ 200 mls/hr 07/13/20 10:00 07/14/20 09:36 Cefepime/Ns 2 Gm/100 Ml IV 200 mls/hr Q24HR TIM Administration Insulin Human Lispro 0 unit 07/12/20 16:30 07/14/20 08:00 Humalog SUB-Q 3 unit ACHS TIM Administration Protocol Metoprolol Tartrate 25 mg 07/13/20 22:00 07/14/20 09:37 Metoprolol PO 25 mg BID TIM Administration Ondansetron HCl 4 mg 07/12/20 11:00 Zofran IV Q8H PRN Nausea And Vomiting Oxycodone/Acetaminophen 1 tab 07/12/20 11:00 07/14/20 05:55 Percocet 5/325 PO 1 tab Q6H PRN Administration Pain, Moderate (4-6) Senna 8.6 mg 07/12/20 22:00 07/14/20 09:40 Senokot PO Not Given Q12HR TIM Sodium Chloride 10 ml 07/12/20 22:00 07/13/20 22:00 Sodium Chloride Flush Syringe 10 Ml IV 10 ml BID TIM Administration Sodium Chloride 10 ml 07/12/20 10:31 Sodium Chloride Flush Syringe 10 Ml IV PRN PRN LINE FLUSH
--- NOTE | 2020-07-14 16:43 | Progress Note ---
Assessment and Plan Echo pending. Cont bASA, statin, and BB. Pt seen in conjunction with Dr. Granger, who agrees with the assessment and plan of care. - Patient Problems (1) Sepsis Current Visit: Yes Status: Suspected (2) Acute abdominal pain Current Visit: Yes Status: Acute (3) Cholelithiasis Current Visit: Yes Status: Acute Qualifiers: Cholelithiasis location: gallbladder Cholecystitis presence: without cholecystitis Biliary obstruction: without biliary obstruction Qualified Code(s): K80.20 - Calculus of gallbladder without cholecystitis without obstruction (4) Pyelonephritis Current Visit: Yes Status: Acute (5) Hydronephrosis, right Current Visit: Yes Status: Acute (6) VAL (acute kidney injury) Current Visit: Yes Status: Acute (7) NSTEMI (non-ST elevated myocardial infarction) Current Visit: Yes Status: Acute Plan to address problem: suspect Type 2 (8) CAD (coronary artery disease) Current Visit: Yes Status: Chronic (9) Elevated d-dimer Current Visit: Yes Status: Acute Plan to address problem: V/Q scan - low prob PE (10) LANNY (obstructive sleep apnea) Current Visit: Yes Status: Chronic (11) HTN (hypertension) Current Visit: Yes Status: Chronic Qualifiers: Hypertension type: essential hypertension Qualified Code(s): I10 - Essential (primary) hypertension (12) DM2 (diabetes mellitus, type 2) Current Visit: Yes Status: Chronic (13) Seizure disorder Current Visit: Yes Status: Chronic (14) History of CVA (cerebrovascular accident) Current Visit: Yes Status: Chronic Subjective Date of service: 07/14/20 Principal diagnosis: NSTEMI Type 2 Interval history: Pt resting comfortably in bedside chair upon exam. She states she is feeling better but still has some general abd pain. No cardiac complaints overnight or this AM. Objective Last Vital Signs Temp 98.9 F 07/14/20 11:54 Pulse 58 L 07/14/20 11:54 Resp 20 07/14/20 11:54 BP 153/66 07/14/20 11:54 Pulse Ox 100 07/14/20 11:54 - Physical Examination General: No Apparent Distress HEENT: Positive: EOMI, Normocephaly, Mucus Membranes Moist Neck: Positive: neck supple, trachea midline Cardiac: Positive: Reg Rate and Rhythm, S1/S2 Lungs: Positive: clear to auscultation Neuro: Positive: Grossly Intact Abdomen: Positive: Soft, Active Bowel Sounds, Tender (RUQ) Skin: Negative: Rash Musculoskeletal: No Pain Extremities: Present: upper extr. pulses, lower extr. pulses. Absent: edema - Labs and Meds Cardiac Enzymes 07/14/20 Range/Units 05:55 AST 24 (5-40) units/L CBC 07/14/20 Range/Units 05:55 WBC 5.7 (4.5-11.0) K/mm3 RBC 3.84 (3.65-5.03) M/mm3 Hgb 9.8 L (10.1-14.3) gm/dl Hct 30.0 L (30.3-42.9) % Plt Count 171 (140-440) K/mm3 Lymph # (Auto) 1.0 L (1.2-5.4) K/mm3 Osborne # (Auto) 0.7 (0.0-0.8) K/mm3 Eos # (Auto) 0.4 (0.0-0.4) K/mm3 Baso # (Auto) 0.0 (0.0-0.1) K/mm3 Comprehensive Metabolic Panel 07/14/20 07/14/20 Range/Units 05:55 05:55 Sodium 143 142 (137-145) mmol/L Potassium 4.1 3.9 (3.6-5.0) mmol/L Chloride 105.9 105.4 (98-107) mmol/L Carbon Dioxide 23 23 (22-30) mmol/L BUN 67 H 68 H (7-17) mg/dL Creatinine 3.0 H 2.8 H (0.6-1.2) mg/dL Glucose 199 H 204 H (65-100) mg/dL Calcium 8.8 8.7 (8.4-10.2) mg/dL AST 24 (5-40) units/L ALT 25 (7-56) units/L Alkaline Phosphatase 57 (35-129) units/L Total Protein 6.5 (6.3-8.2) g/dL Albumin 3.0 L (3.9-5) g/dL - Imaging and Cardiology EKG: report reviewed, image reviewed Echo: pending - EKG Sinus rhythms and dysrhythmias: sinus rhythm
[2020-07-15] MEDS: HEPARIN 5,000 UNIT/1 ML VIAL SUB-Q SCH ×3 (05:33→23:02)
[2020-07-15 05:52] LABS: Basophils % (Auto) 0.4 % (0.0-1.8); Eosinophils # (Auto) 0.5 K/mm3 (0.0-0.4); Eosinophils % (Auto) 7.8 % (0.0-4.3); Hematocrit 30.2 % (30.3-42.9); Hemoglobin 9.7 gm/dl (10.1-14.3); Lymphocytes # (Auto) 1.5 K/mm3 (1.2-5.4); Lymphocytes % (Auto) 25.2 % (13.4-35.0); Mean Corpuscular HGB Conc 32 % (30-34); Mean Corpuscular Volume 78 fl (79-97); Monocytes # (Auto) 0.9 K/mm3 (0.0-0.8); Monocytes % (Auto) 14.8 % (0.0-7.3); Platelet Count 192 K/mm3 (140-440); Red Blood Count 3.88 M/mm3 (3.65-5.03); Red Cell Distribution Width 15.6 % (13.2-15.2)
[2020-07-15 06:07] LABS: Alanine Aminotransferase 25 units/L (7-56); Albumin 3.1 g/dL (3.9-5); BUN/Creatinine Ratio 27; Blood Urea Nitrogen 56 mg/dL (7-17); Calcium 8.8 mg/dL (8.4-10.2); Hemolysis Index 5
--- NOTE | 2020-07-15 08:22 | Progress Note ---
Assessment and Plan - Patient Problems (1) Sepsis-improving Current Visit: Yes Status: Suspected Plan to address problem: Presented with fevers and tachycardia likely secondary to pyonephritis on admission Continue with Antibiotic therapy-cefepime Monitor CBC and vital signs ID consult-following urine and blood culture-f/u with result (2) Pyelonephritis, acute Current Visit: Yes Status: Acute Plan to address problem: 07/12 CTA abdomen/pelvis shows advanced right hydronephrosis-due to chronic UPJ obstruction with asymmetric right perinephric stranding. Cholelithiasis with no biliary dilation or gallbladder inflammation. 07/12 US shows pyuria and leukocyte esterase 07/12 urine -positive for E-coli with sensitivity to Rocephin and Cefepime Continue IV antibiotic therapy (3) VAL (acute kidney injury) possible 2/2 to pyelonephritis Current Visit: Yes Status: Acute Plan to address problem: Kidney function improving Monitor kidney function and Avoid nephrotoxic medications Monitor i/o Nephrology consult (4) NSTEMI (non-ST elevated myocardial infarction) Current Visit: Yes Status: Acute Plan to address problem: Elevated troponine in setting of VAL r/o [place] patient denies chest pain Trend CE (0.171 -> 0.134 -> 0.130) Patient denies any chest, jaw, upper back, shoulder, left arm pain, diaphoresis or current nausea Cardiology consulted-input appreciated Initiate ASA 81, statin, BB in setting of reported h/o CAD. echocardiogram and EKG Continue cardio protective measures aspirin 81, statin, beta-emmanuel (5) Acute abdominal pain likely 2/2 to pyeloneophritis Current Visit: Yes Status: Acute Plan to address problem: Continue pain management (6) Suspected 2019 novel coronavirus infection Current Visit: Yes Status: Ruled-out Plan to address problem: 07/12 COVID-19 PCR negative (7) Elevated d-dimer Current Visit: Yes Status: Acute Plan to address problem: Admit D dimer 5255 07/12 VQ scan shows low probability of a pulmonary embolism Trend D-dimerl (8) Hypokalemia-resolved Current Visit: Yes Status: Resolved Plan to address problem: Monitor electrolytes and Replete as needed 07/13 potassium 4.4 (9) Cholelithiasis Current Visit: Yes Status: Acute Qualifiers: Cholelithiasis location: gallbladder Cholecystitis presence: without chol ecystitis Biliary obstruction: without biliary obstruction Qualified Code(s): K80.20 - Calculus of gallbladder without cholecystitis without obstr uction Plan to address problem: 07/12 CT abdomen pelvis without contrast shows cholelithiasis without biliary duct dilation or gallbladder inflammation 07/12 abdominal ultrasound shows cholelithiasis (largest measuring 2 cm) with no gallbladder wall thickening or per cholecystic fluid. Bile ducts are normal with the common bile duct measuring 4 mm No acute intervention needed at this time (10) Diabetes mellitus Current Visit: Yes Status: Chronic Plan to address problem: Monitor blood sugar with SSI 07/12 Hemoglobin A1c 6.7 (11) CAD (coronary artery disease) Current Visit: Yes Status: Chronic Plan to address problem: Statin therapy (12) DVT prophylaxis Current Visit: Yes Status: Acute Plan to address problem: GI prophylaxis SCDs to bilateral lower extremities while in bed Subcu heparin History Interval history: - Patient Problems (1) Hydronephrosis, right Current Visit: Yes Status: Acute Plan to address problem: Likely due to urinary obstruction [employer] following [place] placed urologist consulted -i spoke to Dr Parry he agreed to see pt later today He recommended IR for possible percutaneous urostomy placement Interventional radiology consulted. (2) HTN (hypertension) Current Visit: Yes Status: Chronic Qualifiers: Hypertension type: essential hypertension Qualified Code(s): I10 - E ssential (primary) hypertension Plan to address problem: Elvated bp level Resumed home medication losartan and lopressor Monitor vital signs Continue anti-hypertensive Adjust BP med if need PRN labetolol Subjective Date of service: 07/15/20 Principal diagnosis: NSTEMI Type 2 Interval history: patient seen at bedside. Reviewed lab, mar, and v/s patient seen at bedside. She reports urine urgency and frequency i spoke to urologist -consulted IR and ordered NM renal scan per urologist rece Objective - Constitutional Vitals: Vital Signs - 12hr 07/14/20 07/14/20 07/15/20 22:00 23:54 06:23 Temperature 98.1 F 99.0 F Pulse Rate 72 69 Pulse Rate [ 72 Right Brachial] Respiratory 20 20 20 Rate Blood Pressure 106/57 170/74 O2 Sat by Pulse 94 94 96 Oximetry General appearance: Present: no acute distress, obese - EENT Eyes: PERRL, EOM intact ENT: hearing intact, clear oral mucosa Ears: bilateral: normal - Neck Neck: supple, normal ROM - Respiratory Respiratory effort: normal Respiratory: bilateral: CTA - Breasts Breasts: normal - Cardiovascular Rhythm: regular Heart Sounds: Present: S1 & S2. Absent: gallop, rub Extremities: pulses intact, No edema, normal color, Full ROM - Gastrointestinal General gastrointestinal: Present: tender - Genitourinary Female genitourinary: normal - Integumentary Integumentary: clear, warm, dry - Musculoskeletal Musculoskeletal: 1, strength equal bilaterally - Neurologic Neurologic: moves all extremities - Psychiatric Psychiatric: memory intact, appropriate mood/affect, intact judgment & insight - Labs CBC & Chem 7: 07/15/20 05:36 07/15/20 05:36 Labs: Abnormal lab results 07/14/20 07/14/20 07/14/20 Range/Units 10:38 12:11 17:04 Hgb (10.1-14.3) gm/dl Hct (30.3-42.9) % MCV (79-97) fl MCH (28-32) pg RDW (13.2-15.2) % Ocean % (Auto) (0.0-7.3) % Eos % (Auto) (0.0-4.3) % Ocean # (Auto) (0.0-0.8) K/mm3 Eos # (Auto) (0.0-0.4) K/mm3 D-Dimer 1270.64 H (0-234) ng/mlDDU Chloride (98-107) mmol/L Carbon Dioxide (22-30) mmol/L BUN (7-17) mg/dL Creatinine (0.6-1.2) mg/dL Glucose (65-100) mg/dL POC Glucose 237 H 285 H (70-105) Albumin (3.9-5) g/dL 07/14/20 07/15/20 07/15/20 Range/Units 22:17 05:36 05:36 Hgb 9.7 L (10.1-14.3) gm/dl Hct 30.2 L (30.3-42.9) % MCV 78 L (79-97) fl MCH 25 L (28-32) pg RDW 15.6 H (13.2-15.2) % Ocean % (Auto) 14.8 H (0.0-7.3) % Eos % (Auto) 7.8 H (0.0-4.3) % Ocean # (Auto) 0.9 H (0.0-0.8) K/mm3 Eos # (Auto) 0.5 H (0.0-0.4) K/mm3 D-Dimer (0-234) ng/mlDDU Chloride 109.6 H (98-107) mmol/L Carbon Dioxide 21 L (22-30) mmol/L BUN 56 H (7-17) mg/dL Creatinine 2.1 H (0.6-1.2) mg/dL Glucose 233 H (65-100) mg/dL POC Glucose 219 H (70-105) Albumin 3.1 L (3.9-5) g/dL 07/15/20 Range/Units 08:12 Hgb (10.1-14.3) gm/dl Hct (30.3-42.9) % MCV (79-97) fl MCH (28-32) pg RDW (13.2-15.2) % Ocean % (Auto) (0.0-7.3) % Eos % (Auto) (0.0-4.3) % Ocean # (Auto) (0.0-0.8) K/mm3 Eos # (Auto) (0.0-0.4) K/mm3 D-Dimer (0-234) ng/mlDDU Chloride (98-107) mmol/L Carbon Dioxide (22-30) mmol/L BUN (7-17) mg/dL Creatinine (0.6-1.2) mg/dL Glucose (65-100) mg/dL POC Glucose 189 H (70-105) Albumin (3.9-5) g/dL HEART Score - HEART Score EKG: Normal Age: 45-65 Risk factors: 1-2 risk factors Troponin: Troponin T 0.104 ng/mL (0.00-0.029) H* 07/14/20 05:55 Troponin: 1-3x normal limit
[2020-07-15] MEDS: INSULIN LISPRO 100 UNIT/ML VIAL 3 mL SUB-Q SCH ×4 (08:26→23:03)
[2020-07-15] MEDS: GABAPENTIN 300 MG CAP PO SCH ×3 (08:27→23:01)
[2020-07-15] MEDS: FAMOTIDINE 20 MG TAB PO SCH (09:38)
[2020-07-15] MEDS: ASPIRIN 81 MG TAB CHEW PO SCH (09:39)
[2020-07-15] MEDS: CEFEPIME/NS 2 GM/100 ML 2 GM/100 ML BAG IV SCH (09:39)
[2020-07-15] MEDS: METOPROLOL TARTRATE 25 MG TAB PO SCH ×2 (09:39→23:01)
[2020-07-15] MEDS: SENNOSIDES 8.6 MG TAB PO SCH ×2 (09:46→23:02)
[2020-07-15] MEDS: DOCUSATE SODIUM 100 MG CAP PO SCH ×2 (09:47→23:01)
[2020-07-15] MEDS ORDERED: amLODIPine 5 MG TAB PO SCH (10:00)
--- NOTE | 2020-07-15 12:39 | Progress Note ---
Assessment and Plan Impression: * VAL * Sepsis * NSTEMI * Pyelonephritis * HTN * type 2 DM * Seizures * Right hydronephrosis * urinary obstruction * Abdominal Pain PlaN; * iv abx and ivfs * cr is stable today, gradually improving * avoid nephrotoxins * placed batres catheter, needs urology evaluation * keep MAP .65 * cards notes reviewed, NSTEMI noted, management per cards * COvid testing noted * strict i/os * daily lytes * no indication for hd today Subjective Date of service: 07/15/20 Principal diagnosis: NSTEMI Type 2 Interval history: resting well in bed today Objective - Exam Narrative Exam: - General Limitations: No Limitations General appearance: alert, anxious, in distress, obese - Head Head exam: Present: atraumatic, normocephalic - Eye Eye exam: Present: normal appearance, EOMI. Absent: nystagmus - ENT ENT exam: Present: normal exam, normal orophraynx, mucous membranes moist, normal external ear exam - Neck Neck exam: Present: normal inspection, full ROM. Absent: tenderness, meningismus - Respiratory Respiratory exam: Present: decreased breath sounds. Absent: respiratory distress, wheezes, rales, rhonchi, stridor - Cardiovascular Cardiovascular Exam: Present: normal rhythm, tachycardia, normal heart sounds. Absent: systolic murmur, diastolic murmur, rubs, gallop - GI/Abdominal GI/Abdominal exam: Present: soft, tenderness (There is right upper quadrant tenderness. There is a positive right upper quadrant Tang sign.), normal bowel sounds. Absent: distended, guarding, rebound, rigid - Extremities Exam Extremities exam: Present: normal inspection, full ROM, other (2+ pulses noted in the bilateral upper and lower extremities. There is no palpable cord. negative Homans sign. Muscular compartments are soft. The pelvis is stable.). Absent: pedal edema, calf tenderness - Back Exam Back exam: Present: normal inspection, full ROM, CVA tenderness (R). Absent: tenderness, paraspinal tenderness, vertebral tenderness - Neurological Exam Neurological exam: Present: alert, oriented X3, other (No facial droop. Tongue midline. Extraocular movements intact bilaterally. Facial sensation intact to light touch in V1, V2, V3 distribution bilaterally. 5 and a 5 strength in 4 extremities. Sensation intact to light touch in 4 extremities.). Absent: motor sensory deficit - Psychiatric Psychiatric exam: Present: anxious - Skin Skin exam: Present: warm, dry, intact, normal color. Absent: rash - Vital Signs Vital signs: Vital Signs - 12hr 07/15/20 07/15/20 07/15/20 06:23 11:35 12:20 Temperature 99.0 F 98.0 F Pulse Rate 69 56 L 70 Respiratory 20 20 Rate Blood Pressure 170/74 197/102 O2 Sat by Pulse 96 96 95 Oximetry - Lab 07/15/20 05:36 07/15/20 05:36 Most recent lab results Calcium 8.8 mg/dL (8.4-10.2) 07/15/20 05:36 Medications & Allergies - Medications Allergies/Adverse Reactions: Allergies No Known Allergies Allergy (Verified 07/12/20 05:04) Home Medications: Home Medications Medication Instructions Recorded Confirmed Last Taken Type Gabapentin 300 mg PO TID 07/12/20 07/12/20 07/11/20 History Aspirin 325 mg PO QDAY 07/13/20 07/13/20 Unknown History Atorvastatin [Lipitor Tab] 80 mg PO DAILY 07/13/20 07/13/20 Unknown History HYDROcodone/ACETAMINOPHEN 1 each PO TID 07/13/20 07/13/20 Unknown History [Hydrocodone-Acetamin 7.5-300] Insulin Glargine [Lantus VIAL] 32 units SQ HS 07/13/20 07/13/20 Unknown History Losartan [Cozaar] 50 mg PO QDAY 07/13/20 07/13/20 Unknown History Lutein 20 mg PO DAILY 07/13/20 07/13/20 Unknown History NIFEdipine [Nifedipine ER] 60 mg PO DAILY 07/13/20 07/13/20 Unknown History SUMAtriptan succinate [SUMAtriptan 100 mg PO DAILY 07/13/20 07/13/20 Unknown History Succinate] Sertraline [Zoloft] 100 mg PO QDAY 07/13/20 07/13/20 Unknown History levETIRAcetam [Keppra TAB] 500 mg PO BID 07/13/20 07/13/20 Unknown History Active Medications: Generic Name Dose Route Start Last Admin Trade Name Freq PRN Reason Stop Dose Admin Acetaminophen 650 mg 07/12/20 11:00 Tylenol PO Q4H PRN Pain MILD(1-3)/Fever >100.5/FERNANDEZ Amlodipine Besylate 5 mg 07/15/20 10:00 07/15/20 09:38 Amlodipine PO 5 mg QDAY TIM Administration Aspirin 81 mg 07/14/20 10:00 07/15/20 09:39 Baby Aspirin PO 81 mg QDAY TIM Administration Atorvastatin Calcium 20 mg 07/13/20 22:00 07/14/20 22:38 Lipitor PO 20 mg QHS TIM Administration Dextrose 50 ml 07/12/20 11:45 D50w (25gm) Syringe IV Q30MIN PRN Hypoglycemia Protocol Docusate Sodium 100 mg 07/12/20 22:00 07/15/20 09:47 Colace PO Not Given BID TIM Famotidine 20 mg 07/13/20 10:00 07/15/20 09:38 Pepcid PO 20 mg DAILY TIM Administration Gabapentin 300 mg 07/13/20 08:00 07/15/20 08:27 Gabapentin PO 300 mg TID TIM Administration Heparin Sodium (Porcine) 5,000 unit 07/12/20 14:00 07/15/20 05:33 Heparin SUB-Q 5,000 unit Q8HR TIM Administration Sodium Chloride 1,000 mls @ 75 mls/hr 07/12/20 15:30 07/14/20 22:38 Nacl 0.9% 1000 Ml IV 75 mls/hr DIRECT TIM Administration Cefepime HCl 2 gm in 100 mls @ 200 mls/hr 07/13/20 10:00 07/15/20 09:39 Cefepime/Ns 2 Gm/100 Ml IV 200 mls/hr Q24HR TIM Administration Insulin Human Lispro 0 unit 07/12/20 16:30 07/15/20 11:51 Humalog SUB-Q 2 unit ACHS TIM Administration Protocol Metoprolol Tartrate 25 mg 07/13/20 22:00 07/15/20 09:39 Metoprolol PO 25 mg BID TIM Administration Ondansetron HCl 4 mg 07/12/20 11:00 Zofran IV Q8H PRN Nausea And Vomiting Oxycodone/Acetaminophen 1 tab 07/12/20 11:00 07/14/20 18:21 Percocet 5/325 PO 1 tab Q6H PRN Administration Pain, Moderate (4-6) Senna 8.6 mg 07/12/20 22:00 07/15/20 09:46 Senokot PO Not Given Q12HR TIM Sodium Chloride 10 ml 07/12/20 22:00 07/15/20 09:53 Sodium Chloride Flush Syringe 10 Ml IV 10 ml BID TIM Administration Sodium Chloride 10 ml 07/12/20 10:31 Sodium Chloride Flush Syringe 10 Ml IV PRN PRN LINE FLUSH
[2020-07-15] MEDS: LOSARTAN 50 MG TAB PO SCH (15:13)
--- NOTE | 2020-07-15 19:30 | Progress Note ---
Assessment and Plan Echo findings noted. Cont present cardiac mgmt. Will optimize antihypertensive regimen. Nephro following. Pt seen in conjunction with Dr. Granger, who agrees with the assessment and plan of care. - Patient Problems (1) Sepsis Current Visit: Yes Status: Acute (2) Acute abdominal pain Current Visit: Yes Status: Acute (3) Cholelithiasis Current Visit: Yes Status: Acute Qualifiers: Cholelithiasis location: gallbladder Cholecystitis presence: without cholecystitis Biliary obstruction: without biliary obstruction Qualified Code(s): K80.20 - Calculus of gallbladder without cholecystitis without obstruction (4) Pyelonephritis Current Visit: Yes Status: Acute (5) Hydronephrosis, right Current Visit: Yes Status: Acute (6) VAL (acute kidney injury) Current Visit: Yes Status: Acute (7) NSTEMI (non-ST elevated myocardial infarction) Current Visit: Yes Status: Acute Plan to address problem: suspect Type 2 (8) CAD (coronary artery disease) Current Visit: Yes Status: Chronic (9) Elevated d-dimer Current Visit: Yes Status: Acute Plan to address problem: V/Q scan - low prob PE (10) LANNY (obstructive sleep apnea) Current Visit: Yes Status: Chronic (11) HTN (hypertension) Current Visit: Yes Status: Chronic Qualifiers: Hypertension type: essential hypertension Qualified Code(s): I10 - Essential (primary) hypertension (12) DM2 (diabetes mellitus, type 2) Current Visit: Yes Status: Chronic (13) Seizure disorder Current Visit: Yes Status: Chronic (14) History of CVA (cerebrovascular accident) Current Visit: Yes Status: Chronic Subjective Date of service: 07/15/20 Principal diagnosis: NSTEMI Type 2 Interval history: Pt resting comfortably upon exam. No cardiac complaints overnight or this AM. BP elevated today. Objective Last Vital Signs Temp 98.2 F 07/15/20 17:34 Pulse 74 07/15/20 17:34 Resp 20 07/15/20 17:34 BP 189/82 07/15/20 17:34 Pulse Ox 95 07/15/20 17:34 - Physical Examination General: No Apparent Distress HEENT: Positive: EOMI, Normocephaly, Mucus Membranes Moist Neck: Positive: neck supple, trachea midline. Negative: JVD/HJR Cardiac: Positive: Reg Rate and Rhythm, S1/S2 Lungs: Positive: clear to auscultation Neuro: Positive: Grossly Intact Abdomen: Positive: Soft, Active Bowel Sounds, Tender (RUQ) Skin: Negative: Rash Musculoskeletal: No Pain Extremities: Present: upper extr. pulses, lower extr. pulses. Absent: edema - Labs and Meds Cardiac Enzymes 07/15/20 Range/Units 05:36 AST 21 (5-40) units/L CBC 07/15/20 Range/Units 05:36 WBC 5.8 (4.5-11.0) K/mm3 RBC 3.88 (3.65-5.03) M/mm3 Hgb 9.7 L (10.1-14.3) gm/dl Hct 30.2 L (30.3-42.9) % Plt Count 192 (140-440) K/mm3 Lymph # (Auto) 1.5 (1.2-5.4) K/mm3 [place] # (Auto) 0.9 H (0.0-0.8) K/mm3 Eos # (Auto) 0.5 H (0.0-0.4) K/mm3 Baso # (Auto) 0.0 (0.0-0.1) K/mm3 Comprehensive Metabolic Panel 07/15/20 Range/Units 05:36 Sodium 144 (137-145) mmol/L Potassium 4.0 (3.6-5.0) mmol/L Chloride 109.6 H (98-107) mmol/L Carbon Dioxide 21 L (22-30) mmol/L BUN 56 H (7-17) mg/dL Creatinine 2.1 H (0.6-1.2) mg/dL Glucose 233 H (65-100) mg/dL Calcium 8.8 (8.4-10.2) mg/dL AST 21 (5-40) units/L ALT 25 (7-56) units/L Alkaline Phosphatase 59 (35-129) units/L Total Protein 6.8 (6.3-8.2) g/dL Albumin 3.1 L (3.9-5) g/dL - Imaging and Cardiology EKG: report reviewed, image reviewed Echo: report reviewed (07/13/2020 - mild-mod concentric LVH; EF 55-60%, impaired LV relaxation; trace AR; RVSP 37 mmHg) - Telemetry EKG Rhythm: Sinus Rhythm - EKG Sinus rhythms and dysrhythmias: sinus rhythm
[2020-07-15] MEDS ORDERED: amLODIPine 10 MG TAB PO SCH (20:00)
[2020-07-15] MEDS: oxyCODONE /ACETAMINOPHEN 5-325MG TAB PO PRN (20:25)
--- NOTE | 2020-07-15 23:22 | XRay Report ---
Cervical spine 5 views Indication: Numbness and tangling sensation to left hand. Findings: There is no fracture, subluxation, or other acute radiographic abnormality of the cervical spine. The re is mild discogenic degenerative change throughout the cervical spine. There is mild disc space morgan rowing and anterior osteophyte formation. Signer Name: Diony Phillips MD Signed: 07/15/2020 11:18 PM Workstation Name: [id number]
--- NOTE | 2020-07-15 23:23 | XRay Report ---
XR neck soft tissue INDICATION: Numbness and tangling sensation to left hand.. COMPARISON: None available. FINDINGS: Prevertebral soft tissues are unremarkable. The epiglottis is unremarkable. The airway appears patent . No radiopaque foreign bodies are seen. Signer Name: Diony Phillips MD Signed: 07/15/2020 11:18 PM Workstation Name: [id number]
[2020-07-16] MEDS: HEPARIN 5,000 UNIT/1 ML VIAL SUB-Q SCH ×3 (05:25→21:02)
[2020-07-16] MEDS: INSULIN LISPRO 100 UNIT/ML VIAL 3 mL SUB-Q SCH ×4 (07:30→23:00)
[2020-07-16] MEDS: GABAPENTIN 300 MG CAP PO SCH ×3 (08:00→21:01)
[2020-07-16 08:32] LABS: Basophils % (Auto) 0.4 % (0.0-1.8); Eosinophils # (Auto) 0.4 K/mm3 (0.0-0.4); Eosinophils % (Auto) 5.8 % (0.0-4.3); Hematocrit 30.8 % (30.3-42.9); Lymphocytes % (Auto) 26.2 % (13.4-35.0); Mean Corpuscular HGB Conc 32 % (30-34); Mean Corpuscular Volume 77 fl (79-97); Monocytes # (Auto) 1.1 K/mm3 (0.0-0.8); Monocytes % (Auto) 14.3 % (0.0-7.3); Platelet Count 214 K/mm3 (140-440); Red Cell Distribution Width 15.6 % (13.2-15.2)
[2020-07-16 08:51] LABS: Albumin 3.4 g/dL (3.9-5); Calcium 9.1 mg/dL (8.4-10.2)
--- NOTE | 2020-07-16 09:29 | Progress Note ---
Assessment and Plan Impression: * VAL * Sepsis * NSTEMI * Pyelonephritis * HTN * type 2 DM * Seizures * Right hydronephrosis * urinary obstruction * anemia * Hypokalemia, mild * Hypernatremia, mild * Abdominal Pain Plan; * iv abx and ivfs * Tejeda catheter * Urology consult * monitor potassium, will need replacement if it trends down further * Recommend discontinuing YESSENIA given current renal function * continue other antihypertensives * avoid nephrotoxins * keep MAP > 65 * cards notes reviewed, NSTEMI noted, management per cards * Covid testing noted * strict i/os * daily lytes * no indication for hd today Subjective Date of service: 07/16/20 Principal diagnosis: NSTEMI Type 2 Interval history: Patient was seen for her renal issues Nursing, interdisciplinary and consult notes were reviewed Vitals, input and output, medications and labs were reviewed Imaging was reviewed good urine output Objective - Exam Narrative Exam: Vitals: Reviewed General: No acute distress HEENT: Oral mucosa moist, no pharyngeal erythema, no evidence of epistaxis Neck: Supple, no evidence of any JVD, trachea midline, no thyromegaly Chest: decreased bibasilar breath sounds Heart: Regular rate and rhythm, S1-S2 heard, no S3-S4, no pericardial rub Abdomen: Soft, RUQ tenderness Extremity: No peripheral cyanosis, edema and dry skin Neurological: Alert, awake, no asterixis Dermatology; no skin rashes Back: Nontender thoracolumbar spine, no CVA tenderness Psych: No agitation and aggression Musculoskeletal: No joint effusion noted - Vital Signs Vital signs: Vital Signs - 12hr 07/15/20 07/16/20 07/16/20 21:38 05:03 08:52 Temperature 97.8 F 98.7 F Pulse Rate 77 63 Respiratory 20 20 Rate Blood Pressure 181/81 162/74 O2 Sat by Pulse 94 94 97 Oximetry - Lab 07/16/20 06:39 07/16/20 06:39 Most recent lab results Calcium 9.1 mg/dL (8.4-10.2) 07/16/20 06:39 Medications & Allergies - Medications Allergies/Adverse Reactions: Allergies No Known Allergies Allergy (Verified 07/12/20 05:04) Home Medications: Home Medications Medication Instructions Recorded Confirmed Last Taken Type Gabapentin 300 mg PO TID 07/12/20 07/12/20 07/11/20 History Aspirin 325 mg PO QDAY 07/13/20 07/13/20 Unknown History Atorvastatin [Lipitor Tab] 80 mg PO DAILY 07/13/20 07/13/20 Unknown History HYDROcodone/ACETAMINOPHEN 1 each PO TID 07/13/20 07/13/20 Unknown History [Hydrocodone-Acetamin 7.5-300] Insulin Glargine [Lantus VIAL] 32 units SQ HS 07/13/20 07/13/20 Unknown History Losartan [Cozaar] 50 mg PO QDAY 07/13/20 07/13/20 Unknown History Lutein 20 mg PO DAILY 07/13/20 07/13/20 Unknown History NIFEdipine [Nifedipine ER] 60 mg PO DAILY 07/13/20 07/13/20 Unknown History SUMAtriptan succinate [SUMAtriptan 100 mg PO DAILY 07/13/20 07/13/20 Unknown History Succinate] Sertraline [Zoloft] 100 mg PO QDAY 07/13/20 07/13/20 Unknown History levETIRAcetam [Keppra TAB] 500 mg PO BID 07/13/20 07/13/20 Unknown History Active Medications: Generic Name Dose Route Start Last Admin Trade Name Freq PRN Reason Stop Dose Admin Acetaminophen 650 mg 07/12/20 11:00 Tylenol PO Q4H PRN Pain MILD(1-3)/Fever >100.5/FERNANDEZ Aspirin 81 mg 07/14/20 10:00 07/15/20 09:39 Baby Aspirin PO 81 mg QDAY TIM Administration Atorvastatin Calcium 80 mg 07/16/20 22:00 Lipitor PO QHS TIM Dextrose 50 ml 07/12/20 11:45 D50w (25gm) Syringe IV Q30MIN PRN Hypoglycemia Protocol Docusate Sodium 100 mg 07/12/20 22:00 07/15/20 23:01 Colace PO 100 mg BID TIM Administration Famotidine 20 mg 07/13/20 10:00 07/15/20 09:38 Pepcid PO 20 mg DAILY TIM Administration Gabapentin 300 mg 07/13/20 08:00 07/15/20 23:01 Gabapentin PO 300 mg TID TIM Administration Heparin Sodium (Porcine) 5,000 unit 07/12/20 14:00 07/16/20 05:25 Heparin SUB-Q 5,000 unit Q8HR TIM Administration Cefepime HCl 2 gm in 100 mls @ 200 mls/hr 07/16/20 10:00 Cefepime/Ns 2 Gm/100 Ml IV Q12HR [facility] Insulin Human Lispro 0 unit 07/12/20 16:30 07/16/20 07:30 Humalog SUB-Q Not Given ACHS [facility] Protocol Losartan Potassium 50 mg 07/15/20 14:00 07/15/20 15:13 Cozaar PO 50 mg QDAY TIM Administration Nifedipine 60 mg 07/16/20 10:00 Procardia Xl PO QDAY TIM Ondansetron HCl 4 mg 07/12/20 11:00 Zofran IV Q8H PRN Nausea And Vomiting Oxycodone/Acetaminophen 1 tab 07/12/20 11:00 07/15/20 20:25 Percocet 5/325 PO 1 tab Q6H PRN Administration Pain, Moderate (4-6) Senna 8.6 mg 07/12/20 22:00 07/15/20 23:02 Senokot PO Not Given Q12HR [facility] Sodium Chloride 10 ml 07/12/20 22:00 07/15/20 23:02 Sodium Chloride Flush Syringe 10 Ml IV 10 ml BID TIM Administration Sodium Chloride 10 ml 07/12/20 10:31 Sodium Chloride Flush Syringe 10 Ml IV PRN PRN LINE FLUSH
[2020-07-16] MEDS ORDERED: NIFEdipine XL 60 MG TAB PO SCH (10:00)
[2020-07-16] MEDS ORDERED: METOPROLOL TARTRATE 25 MG TAB PO SCH (10:00)
[2020-07-16] MEDS: CEFEPIME/NS 2 GM/100 ML 2 GM/100 ML BAG IV SCH ×2 (10:12→21:02)
[2020-07-16] MEDS: LOSARTAN 50 MG TAB PO SCH (10:13)
[2020-07-16] MEDS: DOCUSATE SODIUM 100 MG CAP PO SCH ×2 (10:13→21:03)
[2020-07-16] MEDS: ASPIRIN 81 MG TAB CHEW PO SCH (10:13)
[2020-07-16] MEDS: SENNOSIDES 8.6 MG TAB PO SCH ×2 (10:14→21:03)
[2020-07-16] MEDS: FAMOTIDINE 20 MG TAB PO SCH (10:14)
--- NOTE | 2020-07-16 10:24 | Consultation ---
History of Present Illness - Reason for Consult Consult date: 07/16/20 - History of Present Illness new to our service The pt is a 64-year-old female with a past medical history of reported CAD with AMI, HTN, seizure, CVA x2 with residual right-sided weakness (2013,01/2020), LANNY with home CPAP and diabetes. She presented with c/o epigastric and right upper quadrant pain with radiation to her back for 2 to 3 days with nausea, malaise, fatigue, cough (nonproductive), loss of appetite, loss of taste and smell, weakness, subjective fevers and myalgia. Patient states her pain is sharp, increases with palpitation, decreases with rest and position, is intermittent in nature and rated at a 6/10. Patient denies any sick contacts, recent travels or known exposure to COVID-19. Work-up in the emergency department reveals VAL (CR 2.5/BUN 42), pyelonephritis, RT hydronephrosis and cholelithiasis on CT scan, elevated D-dimer (5255), hypokalemia (3.4), elevated LDH (291) and CRP (3.36), UTI. Cards consulted also. pshx: AZAR, myomectomy, Knee replacement, cysto, stent 2014 (Dr. Milana Evans at [facility]--get op note). pt told kidney does not work abd soft A/P RT hydronephrosis recommend nuc scan to eval split function may need cysto stent Is pt medically stable for cysto under general anesthesia? Past History Past Medical History: diabetes, hypertension, stroke, other (as per HPI) Past Surgical History: No surgical history Social history: no significant social history Family history: no significant family history Medications and Allergies Allergies Allergy/AdvReac Type Severity Reaction Status Date / Time No Known Allergies Allergy Verified 07/12/20 05:04 Home Medications Medication Instructions Recorded Confirmed Last Taken Type Gabapentin 300 mg PO TID 07/12/20 07/12/20 07/11/20 History Aspirin 325 mg PO QDAY 07/13/20 07/13/20 Unknown History Atorvastatin [Lipitor Tab] 80 mg PO DAILY 07/13/20 07/13/20 Unknown History HYDROcodone/ACETAMINOPHEN 1 each PO TID 07/13/20 07/13/20 Unknown History [Hydrocodone-Acetamin 7.5-300] Insulin Glargine [Lantus VIAL] 32 units SQ HS 07/13/20 07/13/20 Unknown History Losartan [Cozaar] 50 mg PO QDAY 07/13/20 07/13/20 Unknown History Lutein 20 mg PO DAILY 07/13/20 07/13/20 Unknown History NIFEdipine [Nifedipine ER] 60 mg PO DAILY 07/13/20 07/13/20 Unknown History SUMAtriptan succinate [SUMAtriptan 100 mg PO DAILY 07/13/20 07/13/20 Unknown History Succinate] Sertraline [Zoloft] 100 mg PO QDAY 07/13/20 07/13/20 Unknown History levETIRAcetam [Keppra TAB] 500 mg PO BID 07/13/20 07/13/20 Unknown History Active Meds: Active Medications Acetaminophen (Tylenol) 650 mg PO Q4H PRN PRN Reason: Pain MILD(1-3)/Fever >100.5/FERNANDEZ Aspirin (Baby Aspirin) 81 mg PO QDAY [facility] Last Admin: 07/16/20 10:13 Dose: 81 mg Documented by: Atorvastatin Calcium (Lipitor) 80 mg PO QHS [facility] Dextrose (D50w (25gm) Syringe) 50 ml IV Q30MIN PRN; Protocol PRN Reason: Hypoglycemia Docusate Sodium (Colace) 100 mg PO BID [facility] Last Admin: 07/16/20 10:13 Dose: 100 mg Documented by: Famotidine (Pepcid) 20 mg PO DAILY [facility] Last Admin: 07/16/20 10:14 Dose: 20 mg Documented by: Gabapentin (Gabapentin) 300 mg PO TID [facility] Last Admin: 07/16/20 08:00 Dose: 300 mg Documented by: Heparin Sodium (Porcine) (Heparin) 5,000 unit SUB-Q Q8HR [facility] Last Admin: 07/16/20 05:25 Dose: 5,000 unit Documented by: Cefepime HCl (Cefepime/Ns 2 Gm/100 Ml) 2 gm in 100 mls @ 200 mls/hr IV Q12HR [facility] Last Admin: 07/16/20 10:12 Dose: 200 mls/hr Documented by: Insulin Human Lispro (Humalog) 0 unit SUB-Q ACHS [facility]; Protocol Last Admin: 07/16/20 07:30 Dose: Not Given Documented by: Losartan Potassium (Cozaar) 50 mg PO QDAY [facility] Last Admin: 07/16/20 10:13 Dose: 50 mg Documented by: Nifedipine (Procardia Xl) 60 mg PO QDAY [facility] Last Admin: 07/16/20 10:13 Dose: 60 mg Documented by: Ondansetron HCl (Zofran) 4 mg IV Q8H PRN PRN Reason: Nausea And Vomiting Oxycodone/Acetaminophen (Percocet 5/325) 1 tab PO Q6H PRN PRN Reason: Pain, Moderate (4-6) Last Admin: 07/15/20 20:25 Dose: 1 tab Documented by: Senna (Senokot) 8.6 mg PO Q12HR [facility] Last Admin: 07/16/20 10:14 Dose: 8.6 mg Documented by: Sodium Chloride (Sodium Chloride Flush Syringe 10 Ml) 10 ml IV BID [facility] Last Admin: 07/16/20 10:14 Dose: 10 ml Documented by: Sodium Chloride (Sodium Chloride Flush Syringe 10 Ml) 10 ml IV PRN PRN PRN Reason: LINE FLUSH Exam - Constitutional Vitals: Temp Pulse Resp BP Pulse Ox 98.7 F 63 20 162/74 97 07/16/20 05:03 07/16/20 05:03 07/16/20 05:03 07/16/20 05:03 07/16/20 08:52 Results - Labs CBC & Chem 7: 07/16/20 06:39 07/16/20 06:39 Labs: Abnormal lab results 07/15/20 07/15/20 07/15/20 Range/Units 11:49 17:50 23:15 Hgb (10.1-14.3) gm/dl MCV (79-97) fl MCH (28-32) pg RDW (13.2-15.2) % [place] % (Auto) (0.0-7.3) % Eos % (Auto) (0.0-4.3) % [place] # (Auto) (0.0-0.8) K/mm3 Sodium (137-145) mmol/L Potassium (3.6-5.0) mmol/L BUN (7-17) mg/dL Creatinine (0.6-1.2) mg/dL Glucose (65-100) mg/dL POC Glucose 220 H 200 H 285 H (70-105) Albumin (3.9-5) g/dL 07/16/20 07/16/20 Range/Units 06:39 06:39 Hgb 10.0 L (10.1-14.3) gm/dl MCV 77 L (79-97) fl MCH 25 L (28-32) pg RDW 15.6 H (13.2-15.2) % [place] % (Auto) 14.3 H (0.0-7.3) % Eos % (Auto) 5.8 H (0.0-4.3) % [place] # (Auto) 1.1 H (0.0-0.8) K/mm3 Sodium 146 H (137-145) mmol/L Potassium 3.5 L (3.6-5.0) mmol/L BUN 41 H (7-17) mg/dL Creatinine 1.7 H (0.6-1.2) mg/dL Glucose 208 H (65-100) mg/dL POC Glucose (70-105) Albumin 3.4 L (3.9-5) g/dL
--- NOTE | 2020-07-16 12:18 | Nuclear Medicine Report ---
MEDICINE RENAL SCAN ROUTINE HISTORY: Right kidney hydronephrosis TECHNIQUE: Posterior flow and function images were obtained following 5 mCi of technetium 99m MAG3 in travenously. Renogram curves were constructed. COMPARISON: Noncontrast CT abdomen pelvis 07/12/2020. FINDINGS: The posterior perfusion and function images demonstrate decreased flow and function of the right kidn ey with compared to the left. There appears to be a relatively normal uptake and excretion of the rad iotracer in the left kidney. There is decreased flow to the right kidney with time of maximum uptake measuring 24 minutes. Split function measures 77.5% left kidney and 22.5% right kidney. No IV Lasix was administered. IMPRESSION: Decreased flow and function of the right kidney compared to the left. Split function measures 77.5% l eft kidney and 22 5% right kidney. Mechanical obstruction is suspected at the right ureteropelvic junction. Signer Name: Tyree Torres Jr, MD Signed: 07/16/2020 12:14 PM Workstation Name: [id number]
--- NOTE | 2020-07-16 14:18 | Progress Note ---
Assessment and Plan Will optimize antihypertensive regimen. Continue bASA and statin. Will also add Imdur. Plan for Lexiscan MPI stress test in AM. NPO after midnight. Should cystoscopy/stent be warranted, pt is mod-high risk from a Cardiology perspective (RCRI Class IV, 3 points, 15.0% risk of MACE). Defer until after stress test if possible. Pt seen in conjunction with Dr. Strong, who agrees with the assessment and plan of care. - Patient Problems (1) Sepsis Current Visit: Yes Status: Acute (2) Acute abdominal pain Current Visit: Yes Status: Acute (3) Cholelithiasis Current Visit: Yes Status: Acute Qualifiers: Cholelithiasis location: gallbladder Cholecystitis presence: without cholecystitis Biliary obstruction: without biliary obstruction Qualified Code(s): K80.20 - Calculus of gallbladder without cholecystitis without obstruction (4) Pyelonephritis Current Visit: Yes Status: Acute (5) Hydronephrosis, right Current Visit: Yes Status: Acute (6) VAL (acute kidney injury) Current Visit: Yes Status: Acute (7) NSTEMI (non-ST elevated myocardial infarction) Current Visit: Yes Status: Acute Plan to address problem: suspect Type 2 (8) CAD (coronary artery disease) Current Visit: Yes Status: Chronic Plan to address problem: with h/o AMI per pt report (9) Anemia Current Visit: Yes Status: Acute Plan to address problem: stable (10) Elevated d-dimer Current Visit: Yes Status: Acute Plan to address problem: V/Q scan - low prob PE (11) LANNY (obstructive sleep apnea) Current Visit: Yes Status: Chronic (12) HTN (hypertension) Current Visit: Yes Status: Chronic Qualifiers: Hypertension type: essential hypertension Qualified Code(s): I10 - Essential (primary) hypertension (13) DM2 (diabetes mellitus, type 2) Current Visit: Yes Status: Chronic (14) Seizure disorder Current Visit: Yes Status: Chronic (15) History of CVA (cerebrovascular accident) Current Visit: Yes Status: Chronic Subjective Date of service: 07/16/20 Principal diagnosis: NSTEMI Type 2 Interval history: Pt resting in bed upon exam. Abdominal pain has improved significantly. Still c/o intermittent chest tightness and wheezing. Pt also reports occasional numbness/tingling her left arm. No additional cardiac complaints. Tele reviewed - SR w/no acute events noted. Objective Last Vital Signs Temp 98.7 F 07/16/20 12:16 Pulse 73 07/16/20 12:16 Resp 18 07/16/20 12:16 BP 184/82 07/16/20 12:16 Pulse Ox 95 07/16/20 12:16 - Physical Examination General: No Apparent Distress HEENT: Positive: EOMI, Normocephaly, Mucus Membranes Moist Neck: Positive: neck supple, trachea midline. Negative: JVD/HJR Cardiac: Positive: Reg Rate and Rhythm, S1/S2 Lungs: Positive: Decreased Breath Sounds Neuro: Positive: Grossly Intact Abdomen: Positive: Soft, Active Bowel Sounds, Tender (RUQ) Skin: Negative: Rash Musculoskeletal: No Pain Extremities: Present: upper extr. pulses, lower extr. pulses, edema (trace ankle) - Labs and Meds Cardiac Enzymes 07/16/20 Range/Units 06:39 AST 22 (5-40) units/L CBC 07/16/20 Range/Units 06:39 WBC 7.5 (4.5-11.0) K/mm3 RBC 4.00 (3.65-5.03) M/mm3 Hgb 10.0 L (10.1-14.3) gm/dl Hct 30.8 (30.3-42.9) % Plt Count 214 (140-440) K/mm3 Lymph # (Auto) 2.0 (1.2-5.4) K/mm3 [place] # (Auto) 1.1 H (0.0-0.8) K/mm3 Eos # (Auto) 0.4 (0.0-0.4) K/mm3 Baso # (Auto) 0.0 (0.0-0.1) K/mm3 Comprehensive Metabolic Panel 07/16/20 Range/Units 06:39 Sodium 146 H (137-145) mmol/L Potassium 3.5 L (3.6-5.0) mmol/L Chloride 105.9 (98-107) mmol/L Carbon Dioxide 24 (22-30) mmol/L BUN 41 H (7-17) mg/dL Creatinine 1.7 H (0.6-1.2) mg/dL Glucose 208 H (65-100) mg/dL Calcium 9.1 (8.4-10.2) mg/dL AST 22 (5-40) units/L ALT 27 (7-56) units/L Alkaline Phosphatase 63 (35-129) units/L Total Protein 6.4 (6.3-8.2) g/dL Albumin 3.4 L (3.9-5) g/dL - Imaging and Cardiology EKG: report reviewed, image reviewed Echo: report reviewed (07/13/2020 - mild-mod concentric LVH; EF 55-60%, impaired LV relaxation; trace AR; RVSP 37 mmHg) - Telemetry EKG Rhythm: Sinus Rhythm - EKG Sinus rhythms and dysrhythmias: sinus rhythm
--- NOTE | 2020-07-16 14:43 | Progress Note ---
Assessment and Plan Cultures: Blood culture 07/12/2020 pansensitive E. coli COVID-19 negative A/P: 64-year-old female past medical history obesity, hypertension, CVA with residual right-sided weakness, PR, diabetes admitted with sepsis likely secondary to pyelonephritis #Acute sepsis: Present with fevers and tachycardia likely secondary to pyelonephritis. Fevers resolved. #Right pyelonephritis: Suspicious on CT with significant pyuria on urinalysis. #Abdominal pain: Questionable passed gallstone given cholelithiasis without inflammation. #CKD: Renally adjust antibiotics Recs: -Continue cefepime renally dosed while inpatient -When ready for discharge would discharge with levofloxacin 750 mg every 48 hours until 07/27/2020 Thank you for the consult, we will continue to follow. Sabas Macias MD O: [phone] F: [phone] Subjective Date of service: 07/16/20 Principal diagnosis: NSTEMI Type 2 Interval history: Afebrile, normal white count. COVID-19 negative. Urine culture with E. coli. Imaging personally reviewed: Cervical x-ray: Mild disc space narrowing. Renal nuclear medical scan: Decreased flow and function of right kidney compared to left. Objective - Exam Narrative Exam: Physical exam deferred due to PPE conservation strategy. Please refer to primary team's note. - Constitutional Vitals: Vital Signs Temp Pulse Resp BP Pulse Ox 98.7 F 73 18 184/82 95 07/16/20 12:16 07/16/20 12:16 07/16/20 12:16 07/16/20 12:16 07/16/20 12:16 Temperature -Last 24 Hours Temperature 98.7 F Temperature 98.7 F Temperature 97.8 F Temperature 98.2 F - Labs CBC & Chem 7: 07/16/20 06:39 07/16/20 06:39 Labs: Abnormal lab results 07/15/20 07/15/20 07/16/20 Range/Units 17:50 23:15 06:39 Hgb 10.0 L (10.1-14.3) gm/dl MCV 77 L (79-97) fl MCH 25 L (28-32) pg RDW 15.6 H (13.2-15.2) % [place] % (Auto) 14.3 H (0.0-7.3) % Eos % (Auto) 5.8 H (0.0-4.3) % [place] # (Auto) 1.1 H (0.0-0.8) K/mm3 Sodium (137-145) mmol/L Potassium (3.6-5.0) mmol/L BUN (7-17) mg/dL Creatinine (0.6-1.2) mg/dL Glucose (65-100) mg/dL POC Glucose 200 H 285 H (70-105) Albumin (3.9-5) g/dL 07/16/20 Range/Units 06:39 Hgb (10.1-14.3) gm/dl MCV (79-97) fl MCH (28-32) pg RDW (13.2-15.2) % [place] % (Auto) (0.0-7.3) % Eos % (Auto) (0.0-4.3) % [place] # (Auto) (0.0-0.8) K/mm3 Sodium 146 H (137-145) mmol/L Potassium 3.5 L (3.6-5.0) mmol/L BUN 41 H (7-17) mg/dL Creatinine 1.7 H (0.6-1.2) mg/dL Glucose 208 H (65-100) mg/dL POC Glucose (70-105) Albumin 3.4 L (3.9-5) g/dL
[2020-07-16] MEDS ORDERED: POTASSIUM CHLORIDE ER 20 MEQ TAB PO SCH (16:00)
[2020-07-16] MEDS ORDERED: POTASSIUM CHLORIDE ER 20 MEQ TAB PO ONE (16:00)
--- NOTE | 2020-07-16 16:08 | Progress Note ---
Assessment and Plan - Patient Problems (1) Sepsis Current Visit: Yes Status: Acute Plan to address problem: Presented with fevers and tachycardia likely secondary to pyonephritis Antibiotic therapy Trend CBC ID consulted 07/12 blood culture x2 NGTD 07/12 urine culture with GNR, sensitivity and speciation to follow (2) Pyelonephritis, acute Current Visit: Yes Status: Acute Plan to address problem: 07/12 CTA abdomen/pelvis without contrast: Atelectatic changes noted in the lung bases. Advanced right hydronephrosis with cortical thinning which is likely chronic, due to chronic UPJ obstruction with asymmetric right perinephric stranding. Cholelithiasis with no biliary dilation or gallbladder inflammation. Cecum and ascending colon are mildly distended with fluid with no intrinsic inflammation. Infectious disease consulted 07/12 urine analysis shows pyuria and leukocyte esterase 07/12 urine culture pending IV antibiotic therapy Trend CBC Per ID: When ready for discharge would discharge with levofloxacin 750 mg every 48 hours until 07/27/2020 (3) Hydronephrosis, right Current Visit: Yes Status: Acute Plan to address problem: 07/12 CTA abdomen/pelvis without contrast: Advanced right hydronephrosis with cortical thinning which is likely chronic, due to chronic UPJ obstruction with asymmetric right perinephric stranding. Urology consulted 07/16 Nuclear med renal scan obtained to evaluate for splinting May need cysto stent Peer cardiology: Should cystoscopy/stent be warranted, pt is mod-high risk from a Cardiology perspective (RCRI Class IV, 3 points, 15.0% risk of MACE); however, there are no cardiac contraindications to intervention at this time. (4) VAL (acute kidney injury) Current Visit: Yes Status: Acute Plan to address problem: Admit creatinine 2.5/42 07/13 cr/bun 3.3/62 07/16 Cr 1.7/41 s/p 1500ml NS bolus in ED Trend BMP Avoid nephrotoxic medications Renally dose medications Strict intake and output Nephrology consult requested Strict intake and output (5) NSTEMI (non-ST elevated myocardial infarction) Current Visit: Yes Status: Acute Plan to address problem: type II troponin leak in setting of VAL Trend CE (0.171 -> 0.134 -> 0.130) Patient denies any chest, jaw, upper back, shoulder, left arm pain, diaphoresis or current nausea Cardiology consulted Remote telemetry 07/12 ECG in the ED shows NSR Continue to trend cardiac enzymes and follow-up ECG in the a.m. Obtain echocardiogram Initiated on aspirin 81, statin, beta-emmanuel (6) Acute abdominal pain Current Visit: Yes Status: Acute Plan to address problem: Supportive care Analgesia therapy (7) Suspected 2019 novel coronavirus infection Current Visit: Yes Status: Ruled-out (8) Elevated d-dimer Current Visit: Yes Status: Acute Plan to address problem: Admit D dimer 5255 07/12 VQ scan shows low probability of a pulmonary embolism Trend D-dimerl (9) Hypokalemia Current Visit: Yes Status: Resolved Plan to address problem: Admit potassium 3.4, 07/13 potassium 4.4 Repleted in the ED Trend BMP Replete as needed 07/16 K 3.5, repleted (10) Cholelithiasis Current Visit: Yes Status: Acute Qualifiers: Cholelithiasis location: gallbladder Cholecystitis presence: without cholecystitis Biliary obstruction: without biliary obstruction Qualified Code(s): K80.20 - Calculus of gallbladder without cholecystitis without obstruction Plan to address problem: 07/12 CT abdomen pelvis without contrast shows cholelithiasis without biliary duct dilation or gallbladder inflammation 07/12 abdominal ultrasound shows cholelithiasis (largest measuring 2 cm) with no gallbladder wall thickening or per cholecystic fluid. Bile ducts are normal with the common bile duct measuring 4 mm No acute intervention needed at this time (11) Diabetes mellitus Current Visit: Yes Status: Chronic Plan to address problem: 07/12 Hemoglobin A1c 6.7 SSI CC renal diet Accu-Cheks ACHS (12) HTN (hypertension) Current Visit: Yes Status: Chronic Qualifiers: Hypertension type: essential hypertension Qualified Code(s): I10 - Essential (primary) hypertension Plan to address problem: Anti htn regimen: imdur, metoprolol, losartan, hydralazine As needed labetalol Blood pressure monitor per protocol (13) CAD (coronary artery disease) Current Visit: Yes Status: Chronic Plan to address problem: Statin therapy (14) DVT prophylaxis Current Visit: Yes Status: Acute Plan to address problem: GI prophylaxis SCDs to bilateral lower extremities while in bed Subcu heparin History Interval history: This is a 64-year-old female with obesity, HTN, seizure, CVA x2 with residual right-sided weakness (2013,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 Work-up in the emergency department reveals VAL (Cr 2.5/BUN 42), pyelonephritis and cholelithiasis on CT scan, elevated D-dimer (5255), hypokalemia (3.4), elevated LDH (291) and CRP (3.36), urine analysis with leukocyte esterase and pyuria and elevated troponin at 0.171. ID, nephrology, urology, and cardiology are consulted. This morning at the time of my examination the PCT is taking her blood pressure with the wrong sized BP cuff. Patient seemed sad on exam however she had no complaints. 07/12: COVID 19 PCR (-) 07/13: Slight increase in her creatinine to 3.3 therefore nephrology has been consulted. Cardiology was consulted for her elevated troponins. 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 spoke to her sister, Shi Corrigan over the phone and updated her on current treatments 07/14: Urology consulted 07/15: Consulted IR and ordered NM renal scan per urologist recs Hospitalist Physical - Constitutional Vitals: Temp Pulse Resp BP Pulse Ox 98.7 F 73 18 184/82 95 07/16/20 12:16 07/16/20 12:16 07/16/20 12:16 07/16/20 12:16 07/16/20 12:16 General appearance: Present: no acute distress, obese - EENT Eyes: Present: PERRL, EOM intact ENT: hearing intact, clear oral mucosa - Neck Neck: Present: supple, normal ROM - Respiratory Respiratory effort: normal Respiratory: bilateral: CTA - Cardiovascular Rhythm: regular Heart Sounds: Present: S1 & S2. Absent: systolic murmur, diastolic murmur - Extremities Extremities: no ischemia, pulses intact, pulses symmetrical, No edema, normal temperature, normal color, Full ROM Peripheral Pulses: within normal limits - Abdominal General gastrointestinal: soft, non-tender, non-distended, normal bowel sounds - Integumentary Integumentary: Present: clear, warm, dry - Psychiatric Psychiatric: cooperative, depressed - Neurologic Neurologic: CNII-XII intact, no focal deficits, moves all extremities HEART Score - HEART Score EKG: Normal Age: 45-65 Risk factors: 1-2 risk factors Troponin: Troponin T 0.104 ng/mL (0.00-0.029) H* 07/14/20 05:55 Troponin: 1-3x normal limit Results - Labs CBC & Chem 7: 07/16/20 06:39 07/16/20 06:39 Labs: Laboratory Last Values WBC 7.5 K/mm3 (4.5-11.0) 07/16/20 06:39 RBC 4.00 M/mm3 (3.65-5.03) 07/16/20 06:39 Hgb 10.0 gm/dl (10.1-14.3) L 07/16/20 06:39 Hct 30.8 % (30.3-42.9) 07/16/20 06:39 MCV 77 fl (79-97) L 07/16/20 06:39 MCH 25 pg (28-32) L 07/16/20 06:39 MCHC 32 % (30-34) 07/16/20 06:39 RDW 15.6 % (13.2-15.2) H 07/16/20 06:39 Plt Count 214 K/mm3 (140-440) 07/16/20 06:39 Lymph % (Auto) 26.2 % (13.4-35.0) 07/16/20 06:39 Gilmer % (Auto) 14.3 % (0.0-7.3) H 07/16/20 06:39 Eos % (Auto) 5.8 % (0.0-4.3) H 07/16/20 06:39 Baso % (Auto) 0.4 % (0.0-1.8) 07/16/20 06:39 Lymph # (Auto) 2.0 K/mm3 (1.2-5.4) 07/16/20 06:39 Gilmer # (Auto) 1.1 K/mm3 (0.0-0.8) H 07/16/20 06:39 Eos # (Auto) 0.4 K/mm3 (0.0-0.4) 07/16/20 06:39 Baso # (Auto) 0.0 K/mm3 (0.0-0.1) 07/16/20 06:39 Seg Neutrophils % 53.3 % (40.0-70.0) 07/16/20 06:39 Seg Neutrophils # 4.0 K/mm3 (1.8-7.7) 07/16/20 06:39 PT 16.3 Sec. (12.2-14.9) H 07/12/20 03:38 INR 1.29 (0.87-1.13) H 07/12/20 03:38 D-Dimer 1270.64 ng/mlDDU (0-234) H 07/14/20 10:38 Sodium 146 mmol/L (137-145) H 07/16/20 06:39 Potassium 3.5 mmol/L (3.6-5.0) L 07/16/20 06:39 Chloride 105.9 mmol/L (98-107) 07/16/20 06:39 Carbon Dioxide 24 mmol/L (22-30) 07/16/20 06:39 Anion Gap 20 mmol/L 07/16/20 06:39 BUN 41 mg/dL (7-17) H 07/16/20 06:39 Creatinine 1.7 mg/dL (0.6-1.2) H 07/16/20 06:39 Estimated GFR 37 ml/min 07/16/20 06:39 BUN/Creatinine Ratio 24 % 07/16/20 06:39 Glucose 208 mg/dL (65-100) H 07/16/20 06:39 POC Glucose 285 (70-105) H 07/15/20 23:15 Hemoglobin A1c 6.7 % (4-6) H 07/12/20 16:44 Lactic Acid 1.60 mmol/L (0.7-2.0) 07/12/20 03:38 Calcium 9.1 mg/dL (8.4-10.2) 07/16/20 06:39 Ferritin 139.8 ng/mL (10.0-200.0) 07/12/20 03:38 Total Bilirubin 0.20 mg/dL (0.1-1.2) 07/16/20 06:39 Direct Bilirubin < 0.2 mg/dL (0-0.2) 07/12/20 03:38 Indirect Bilirubin 0.4 mg/dL 07/12/20 03:38 AST 22 units/L (5-40) 07/16/20 06:39 ALT 27 units/L (7-56) 07/16/20 06:39 Alkaline Phosphatase 63 units/L (35-129) 07/16/20 06:39 Lactate Dehydrogenase 290 units/L (91-180) H 07/12/20 03:38 Lactate Dehydrogenase 291 units/L (91-180) H 07/12/20 03:38 Total Creatine Kinase 787 units/L (30-135) H 07/12/20 19:52 CK-MB (CK-2) 8.8 ng/mL (0.0-4.0) H 07/12/20 19:52 CK-MB (CK-2) Rel Index 1.1 (0-4) 07/12/20 19:52 Troponin T 0.104 ng/mL (0.00-0.029) H* 07/14/20 05:55 C-Reactive Protein 33.50 mg/dL (0.00-1.30) H 07/12/20 03:38 C-Reactive Protein 33.60 mg/dL (0.00-1.30) H 07/12/20 03:38 Total Protein 6.4 g/dL (6.3-8.2) 07/16/20 06:39 Albumin 3.4 g/dL (3.9-5) L 07/16/20 06:39 Albumin/Globulin Ratio 1.1 % 07/16/20 06:39 Triglycerides 115 mg/dL (2-149) 07/12/20 03:38 Cholesterol 111 mg/dL (50-199) 07/12/20 03:38 LDL Cholesterol Direct 33 mg/dL (50-130) L 07/12/20 03:38 HDL Cholesterol 54 mg/dL (40-59) 07/12/20 03:38 Cholesterol/HDL Ratio 2.05 % 07/12/20 03:38 Lipase 28 units/L (13-60) 07/12/20 03:38 Procalcitonin 49.70 ng/mL (<0.15) 07/12/20 11:23 Urine Color Red (Yellow) 07/12/20 04:08 Urine Turbidity Turbid (Clear) 07/12/20 04:08 Urine pH 5.0 (5.0-7.0) 07/12/20 04:08 Ur Specific S[place]ord 1.017 (1.003-1.030) 07/12/20 04:08 Urine Protein 100 mg/dl mg/dL (Negative) 07/12/20 04:08 Urine Glucose (UA) Neg mg/dL (Negative) 07/12/20 04:08 Urine Ketones Neg mg/dL (Negative) 07/12/20 04:08 Urine Blood Lg (Negative) 07/12/20 04:08 Urine Nitrite Neg (Negative) 07/12/20 04:08 Urine Bilirubin Neg (Negative) 07/12/20 04:08 Urine Urobilinogen < 2.0 mg/dL (<2.0) 07/12/20 04:08 Ur Leukocyte Esterase Mod (Negative) 07/12/20 04:08 Urine WBC (Auto) > 182.0 /HPF (0.0-6.0) H 07/12/20 04:08 Urine RBC (Auto) > 182.0 /HPF (0.0-6.0) 07/12/20 04:08 U Epithel Cells (Auto) 16.0 /HPF (0-13.0) H 07/12/20 04:08 Urine Bacteria (Auto) 3+ /HPF (Negative) 07/12/20 04:08 Urine WBC Clumps 3+ /HPF 07/12/20 04:08 Urine Sperm 2+ /HPF (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) 07/12/20 04:08 Coronavirus (PCR) Negative (Negative) 07/12/20 10:51 Microbiology: Microbiology 07/12/20 04:17 Peripheral/Venous Blood Culture - Preliminary NO GROWTH AFTER 4 DAYS 07/12/20 03:38 Peripheral/Venous Blood Culture - Preliminary NO GROWTH AFTER 4 DAYS - Diagnostic Impressions Diagnostic Impressions: Echocardiogram 07/13/20 09:15 Transthoracic Echocardiogram Indication: elevated trop BP: 154/80 HR: 73 Conclusions *The left ventricular chamber size is normal. *Mild to moderate concentric left ventricular hypertrophy is observed. *The estimated ejection fraction is 55-60%. *Abnormal left ventricular diastolic filling is observed, consistent with impaired relaxation. *The aortic valve structure is normal. *There is trace of aortic regurgitation. *The right ventricular systolic pressure is calculated at 37 mmHg. Findings Left Ventricle: The left ventricular chamber size is normal. Mild to moderate concentric left ventricular hypertrophy is observed. Global left ventricular wall motion and contractility are within normal limits. Global left ventricular systolic function is normal. The estimated ejection fraction is 55-60%. Abnormal left ventricular diastolic function is observed. Abnormal left ventricular diastolic filling is observed, consistent with impaired relaxation. Left Atrium: The left atrium is normal in size with no visual thrombus identified. Right Ventricle: The right ventricular cavity size is normal. The right ventricular global systolic function is normal. Right Atrium: The right atrium is mildly dilated. The interatrial septum appears normal. There is evidence of an atrial septal aneurysm. Aortic Valve: The aortic valve structure is normal. There is trace of aortic regurgitation. There is no evidence of aortic stenosis. Mitral Valve: The mitral valve leaflets appear normal. There is no evidence of mitral regurgitation. There is no evidence of mitral stenosis. Tricuspid Valve: The tricuspid valve leaflets are normal. There is mild tricuspid regurgitation. The right ventricular systolic pressure is calculated at 37 mmHg. There is no tricuspid stenosis. Pulmonic Valve: The pulmonic valve appears normal. There is mild pulmonic regurgitation. There is no pulmonic stenosis. Pericardium: There is no pericardial effusion. Aorta: There is no dilatation of the ascending aorta. There is no dilatation of the aortic arch. There is no dilatation of the descending thoracic aorta. There is no dilatation of the aortic root. Venous: The inferior vena cava appears normal in size. Measurements Chambers 2D Name Value Normal Range IVSd (2D) 1.55 cm (0.6 - 1.1) LVPWd (2D) 1.53 cm (0.6 - 1.1) LVIDd (2D) 4.54 cm (3.7 - 5.6) LVIDs (2D) 2.98 cm (2 - 3.8) LV FS (2D) 34.37 % - EF Teichholz (2D) 63.53 % - Ao root diameter (2D) 3.26 cm (2 - 3.7) Volumes/Mass Name Value Normal Range LA ESV SP 4CH (A/L) 61.16 ml - LA ESV SP 2CH (A/L) 63.94 ml - LA ESV BP (A/L) 65.9 ml - LA ESV SP 4CH (MOD) 57.02 ml - LA ESV SP 2CH (MOD) 62.44 ml - LA ESV BP (MOD) 62.5 ml - LA ESV BP (MOD) index 28.8 ml/m2 - LV EDV SP 4CH (MOD) 150.49 ml - LV ESV SP 4CH (MOD) 64.14 ml - EF SP 4CH (MOD) 57.38 % - LV EDV SP 2CH (MOD) 111.1 ml - LV ESV SP 2CH (MOD) 44.83 ml - EF SP 2CH (MOD) 59.65 % - LV EDV BP 130.22 ml - LV ESV BP 54.23 ml - BP EF (MOD) 58.35 % - Diastolic/Systolic Function Name Value Normal Range MV E-wave Vmax 0.64 m/sec - MV deceleration time 202.51 msec - MV A-wave Vmax 0.92 m/sec - MV E:A ratio 0.69 ratio - Aortic Valve Name Value Normal Range AV Vmax 1.36 m/sec - AV VTI 23.86 cm - AV peak gradient 7.35 mmHg - AV mean gradient 3.45 mmHg - LVOT diameter 2.18 cm - LVOT Vmax 1.18 m/sec - LVOT VTI 25.22 cm - LVOT peak gradient 5.55 mmHg - LVOT mean gradient 3.24 mmHg - SV LVOT 93.69 ml - DEBBIE (continuity Vmax) 3.23 cm2 - DEBBIE (continuity VTI) 3.93 cm2 - Ascending Ao 3.07 cm - Tricuspid Valve Name Value Normal Range TR Vmax 2.92 m/sec - TR peak gradient 34 mmHg - RAP 3 mmHg - RVSP 37 mmHg - Pulmonic Valve/Qp:Qs Name Value Normal Range PV Vmax 1.09 m/sec - PV peak gradient 4.71 mmHg - MA end-diastolic Vmax 1.35 m/sec - PV acceleration time 68.51 msec - Tejeda/IV: Voiding Method External Female Catheter IV Catheter Type [Left INT / Saline Lock Antecubital] Active Medications - Current Medications Current Medications: Generic Name Dose Route Start Last Admin Trade Name Freq PRN Reason Stop Dose Admin Acetaminophen 650 mg 07/12/20 11:00 Tylenol PO Q4H PRN Pain MILD(1-3)/Fever >100.5/FERNANDEZ Aspirin 81 mg 07/14/20 10:00 07/16/20 10:13 Baby Aspirin PO 81 mg QDAY TIM Administration Atorvastatin Calcium 80 mg 07/16/20 22:00 Lipitor PO QHS TIM Dextrose 50 ml 07/12/20 11:45 D50w (25gm) Syringe IV Q30MIN PRN Hypoglycemia Protocol Docusate Sodium 100 mg 07/12/20 22:00 07/16/20 10:13 Colace PO 100 mg BID TIM Administration Famotidine 20 mg 07/13/20 10:00 07/16/20 10:14 Pepcid PO 20 mg DAILY TIM Administration Gabapentin 300 mg 07/13/20 08:00 07/16/20 14:11 Gabapentin PO 300 mg TID TIM Administration Heparin Sodium (Porcine) 5,000 unit 07/12/20 14:00 07/16/20 14:11 Heparin SUB-Q 5,000 unit Q8HR TIM Administration Cefepime HCl 2 gm in 100 mls @ 200 mls/hr 07/16/20 10:00 07/16/20 10:12 Cefepime/Ns 2 Gm/100 Ml IV 200 mls/hr Q12HR TIM Administration Insulin Human Lispro 0 unit 07/12/20 16:30 07/16/20 11:30 Humalog SUB-Q Not Given ACHS TIM Protocol Losartan Potassium 50 mg 07/15/20 14:00 07/16/20 10:13 Cozaar PO 50 mg QDAY TIM Administration Nifedipine 60 mg 07/16/20 10:00 07/16/20 10:13 Procardia Xl PO 60 mg QDAY TIM Administration Ondansetron HCl 4 mg 07/12/20 11:00 Zofran IV Q8H PRN Nausea And Vomiting Oxycodone/Acetaminophen 1 tab 07/12/20 11:00 07/15/20 20:25 Percocet 5/325 PO 1 tab Q6H PRN Administration Pain, Moderate (4-6) Potassium Chloride 20 meq 07/16/20 16:00 K-Dur PO 07/16/20 16:01 ONCE ONE Senna 8.6 mg 07/12/20 22:00 07/16/20 10:14 Senokot PO 8.6 mg Q12HR TIM Administration Sodium Chloride 10 ml 07/12/20 22:00 07/16/20 10:14 Sodium Chloride Flush Syringe 10 Ml IV 10 ml BID TIM Administration Sodium Chloride 10 ml 07/12/20 10:31 Sodium Chloride Flush Syringe 10 Ml IV PRN PRN LINE FLUSH
[2020-07-16] MEDS: oxyCODONE /ACETAMINOPHEN 5-325MG TAB PO PRN (20:58)
[2020-07-16] MEDS: METOPROLOL TARTRATE 25 MG TAB PO SCH (21:02)
[2020-07-16] MEDS: hydrALAZINE 25 MG TAB PO SCH (21:02)
[2020-07-17] MEDS: hydrALAZINE 25 MG TAB PO SCH ×3 (06:17→23:11)
[2020-07-17] MEDS: HEPARIN 5,000 UNIT/1 ML VIAL SUB-Q SCH ×3 (06:17→23:12)
[2020-07-17 06:24] LABS: Basophils % (Auto) 0.4 % (0.0-1.8); Eosinophils # (Auto) 0.6 K/mm3 (0.0-0.4); Eosinophils % (Auto) 7.1 % (0.0-4.3); Hematocrit 30.4 % (30.3-42.9); Lymphocytes # (Auto) 2.3 K/mm3 (1.2-5.4); Lymphocytes % (Auto) 25.2 % (13.4-35.0); Mean Corpuscular HGB Conc 33 % (30-34); Mean Corpuscular Volume 76 fl (79-97); Monocytes # (Auto) 1.1 K/mm3 (0.0-0.8); Monocytes % (Auto) 12.3 % (0.0-7.3); Platelet Count 244 K/mm3 (140-440); Red Blood Count 3.98 M/mm3 (3.65-5.03); Red Cell Distribution Width 15.3 % (13.2-15.2)
[2020-07-17 06:43] LABS: Albumin 3.2 g/dL (3.9-5); Calcium 9.2 mg/dL (8.4-10.2)
[2020-07-17] MEDS: INSULIN LISPRO 100 UNIT/ML VIAL 3 mL SUB-Q SCH ×4 (07:30→23:13)
[2020-07-17] MEDS: oxyCODONE /ACETAMINOPHEN 5-325MG TAB PO PRN ×2 (07:33→16:42)
[2020-07-17] MEDS ORDERED: REGADENOSON 0.4 MG/5 ML INJ IV ONE ×2 (08:36→10:18)
[2020-07-17] MEDS ORDERED: POTASSIUM CHLORIDE ER 20 MEQ TAB PO SCH (09:00)
[2020-07-17] MEDS ORDERED: ACETAMINOPHEN 325 MG TAB ONE (10:24)
--- NOTE | 2020-07-17 10:25 | Progress Note ---
Assessment and Plan Currently stable cardiac status. Proceed with lexiscan MPI stress test today. Await findings. The patient has been seen in conjunction with Dr. Strong who agrees with the assessment and plan of care. - Patient Problems (1) Acute abdominal pain Current Visit: Yes Status: Acute (2) Cholelithiasis Current Visit: Yes Status: Acute Qualifiers: Cholelithiasis location: gallbladder Cholecystitis presence: without cholecystitis Biliary obstruction: without biliary obstruction Qualified Cod e(s): K80.20 - Calculus of gallbladder without cholecystitis without obstruction (3) NSTEMI (non-ST elevated myocardial infarction) Current Visit: Yes Status: Acute Plan to address problem: suspect type II (4) HTN (hypertension) Current Visit: Yes Status: Chronic Qualifiers: Hypertension type: essential hypertension Qualified Code(s): I10 - Essential (primary) hypertension (5) Diabetes mellitus with hyperglycemia Current Visit: Yes Status: Chronic (6) History of CVA (cerebrovascular accident) Current Visit: Yes Status: Chronic (7) Seizure disorder Current Visit: Yes Status: Chronic (8) CAD (coronary artery disease) Current Visit: Yes Status: Chronic Plan to address problem: with h/o AMI per pt report (9) LANNY (obstructive sleep apnea) Current Visit: Yes Status: Chronic (10) VAL (acute kidney injury) Current Visit: Yes Status: Acute (11) UTI (urinary tract infection) Current Visit: Yes Status: Acute (12) Sepsis Current Visit: Yes Status: Acute (13) Pyelonephritis Current Visit: Yes Status: Acute Subjective Date of service: 07/17/20 Principal diagnosis: NSTEMI Type 2 Interval history: for stress test today. noncompliant with remote satellite project site monitor. Objective Last Vital Signs Temp 98.7 F 07/16/20 23:25 Pulse 71 07/16/20 23:25 Resp 18 07/16/20 23:25 BP 129/76 07/16/20 23:25 Pulse Ox 94 07/16/20 23:25 - Physical Examination General: No Apparent Distress HEENT: Positive: EOMI, Normocephaly, Mucus Membranes Moist Neck: Positive: neck supple, trachea midline. Negative: JVD/HJR Cardiac: Positive: Reg Rate and Rhythm, S1/S2 Lungs: Positive: Decreased Breath Sounds Neuro: Positive: Grossly Intact Abdomen: Positive: Soft, Active Bowel Sounds, Tender (RUQ) Skin: Negative: Rash Musculoskeletal: No Pain Extremities: Present: upper extr. pulses, lower extr. pulses, edema (trace ankle) - Labs and Meds Cardiac Enzymes 07/17/20 Range/Units 05:49 AST 18 (5-40) units/L CBC 07/17/20 Range/Units 05:49 WBC 9.0 (4.5-11.0) K/mm3 RBC 3.98 (3.65-5.03) M/mm3 Hgb 10.0 L (10.1-14.3) gm/dl Hct 30.4 (30.3-42.9) % Plt Count 244 (140-440) K/mm3 Lymph # (Auto) 2.3 (1.2-5.4) K/mm3 Frio # (Auto) 1.1 H (0.0-0.8) K/mm3 Eos # (Auto) 0.6 H (0.0-0.4) K/mm3 Baso # (Auto) 0.0 (0.0-0.1) K/mm3 Comprehensive Metabolic Panel 07/17/20 Range/Units 05:49 Sodium 148 H (137-145) mmol/L Potassium 3.2 L (3.6-5.0) mmol/L Chloride 108.9 H (98-107) mmol/L Carbon Dioxide 25 (22-30) mmol/L BUN 30 H (7-17) mg/dL Creatinine 1.6 H (0.6-1.2) mg/dL Glucose 187 H (65-100) mg/dL Calcium 9.2 (8.4-10.2) mg/dL AST 18 (5-40) units/L ALT 24 (7-56) units/L Alkaline Phosphatase 58 (35-129) units/L Total Protein 6.3 (6.3-8.2) g/dL Albumin 3.2 L (3.9-5) g/dL - Imaging and Cardiology EKG: report reviewed, image reviewed Echo: report reviewed (07/13/2020 - mild-mod concentric LVH; EF 55-60%, impaired LV relaxation; trace AR; RVSP 37 mmHg) - EKG Sinus rhythms and dysrhythmias: sinus rhythm
[2020-07-17] MEDS: CEFEPIME/NS 2 GM/100 ML 2 GM/100 ML BAG IV SCH (11:36)
[2020-07-17] MEDS: SENNOSIDES 8.6 MG TAB PO SCH ×2 (11:37→23:13)
[2020-07-17] MEDS: DOCUSATE SODIUM 100 MG CAP PO SCH ×2 (11:37→23:12)
[2020-07-17] MEDS: METOPROLOL TARTRATE 25 MG TAB PO SCH ×2 (11:37→23:11)
[2020-07-17] MEDS: FAMOTIDINE 20 MG TAB PO SCH (11:37)
[2020-07-17] MEDS: ASPIRIN 81 MG TAB CHEW PO SCH (11:37)
[2020-07-17] MEDS: LOSARTAN 50 MG TAB PO SCH (11:38)
[2020-07-17] MEDS: GABAPENTIN 300 MG CAP PO SCH ×3 (11:39→23:18)
--- NOTE | 2020-07-17 11:49 | Progress Note ---
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 She presented with c/o epigastric and right upper quadrant pain with radiation to her back for 2 to 3 days with nausea, malaise, fatigue, cough (nonproductive), loss of appetite, loss of taste and smell, weakness, subjective fevers and myalgia. Patient states her pain is sharp, increases with palpitation, decreases with rest and position, is intermittent in nature and rated at a 6/10. Patient denies any sick contacts, recent travels or known exposure to COVID-19. Work-up in the emergency department reveals VAL (CR 2.5/BUN 42), pyelonephritis, RT hydronephrosis and cholelithiasis on CT scan, elevated D-dimer (5255), hypokalemia (3.4), elevated LDH (291) and CRP (3.36), UTI. Cards consulted also. pshx: AZAR, myomectomy, Knee replacement, cysto, stent 2014 (Dr. Milana Evans at [facility]--get op note). pt told kidney does not work discussed with pt suction tube in vaginal area nuc scan to eval split function-- rt 22% function---delay drainage abd soft A/P RT hydronephrosis need cysto stent Cleared by CARDS Objective - Constitutional Vitals: Vital Signs - 12hr 07/17/20 07/17/20 07/17/20 06:47 09:46 09:50 Temperature 98.7 F Pulse Rate 79 Respiratory 20 Rate Blood Pressure 184/83 204/83 198/88 O2 Sat by Pulse 95 Oximetry 07/17/20 07/17/20 07/17/20 10:08 10:15 10:17 Temperature Pulse Rate Respiratory Rate Blood Pressure 197/98 209/121 210/95 O2 Sat by Pulse Oximetry 07/17/20 07/17/20 07/17/20 10:19 10:21 10:27 Temperature Pulse Rate Respiratory 16 Rate Blood Pressure 187/97 205/88 O2 Sat by Pulse Oximetry - Labs CBC & Chem 7: 07/17/20 05:49 07/17/20 05:49 Labs: Abnormal lab results 07/16/20 07/16/20 07/17/20 Range/Units 16:28 23:38 05:49 Hgb 10.0 L (10.1-14.3) gm/dl MCV 76 L (79-97) fl MCH 25 L (28-32) pg RDW 15.3 H (13.2-15.2) % [place] % (Auto) 12.3 H (0.0-7.3) % Eos % (Auto) 7.1 H (0.0-4.3) % [place] # (Auto) 1.1 H (0.0-0.8) K/mm3 Eos # (Auto) 0.6 H (0.0-0.4) K/mm3 Sodium (137-145) mmol/L Potassium (3.6-5.0) mmol/L Chloride (98-107) mmol/L BUN (7-17) mg/dL Creatinine (0.6-1.2) mg/dL Glucose (65-100) mg/dL POC Glucose 355 H 225 H (70-105) Albumin (3.9-5) g/dL 07/17/20 07/17/20 Range/Units 05:49 07:26 Hgb (10.1-14.3) gm/dl MCV (79-97) fl MCH (28-32) pg RDW (13.2-15.2) % [place] % (Auto) (0.0-7.3) % Eos % (Auto) (0.0-4.3) % [place] # (Auto) (0.0-0.8) K/mm3 Eos # (Auto) (0.0-0.4) K/mm3 Sodium 148 H (137-145) mmol/L Potassium 3.2 L (3.6-5.0) mmol/L Chloride 108.9 H (98-107) mmol/L BUN 30 H (7-17) mg/dL Creatinine 1.6 H (0.6-1.2) mg/dL Glucose 187 H (65-100) mg/dL POC Glucose 214 H (70-105) Albumin 3.2 L (3.9-5) g/dL Medications & Allergies - Medications Allergies/Adverse Reactions: Allergies No Known Allergies Allergy (Verified 07/12/20 05:04) Home Medications: Home Medications Medication Instructions Recorded Confirmed Last Taken Type Gabapentin 300 mg PO TID 07/12/20 07/12/20 07/11/20 History Aspirin 325 mg PO QDAY 07/13/20 07/13/20 Unknown History Atorvastatin [Lipitor Tab] 80 mg PO DAILY 07/13/20 07/13/20 Unknown History HYDROcodone/ACETAMINOPHEN 1 each PO TID 07/13/20 07/13/20 Unknown History [Hydrocodone-Acetamin 7.5-300] Insulin Glargine [Lantus VIAL] 32 units SQ HS 07/13/20 07/13/20 Unknown History Losartan [Cozaar] 50 mg PO QDAY 07/13/20 07/13/20 Unknown History Lutein 20 mg PO DAILY 07/13/20 07/13/20 Unknown History NIFEdipine [Nifedipine ER] 60 mg PO DAILY 07/13/20 07/13/20 Unknown History SUMAtriptan succinate [SUMAtriptan 100 mg PO DAILY 07/13/20 07/13/20 Unknown History Succinate] Sertraline [Zoloft] 100 mg PO QDAY 07/13/20 07/13/20 Unknown History levETIRAcetam [Keppra TAB] 500 mg PO BID 07/13/20 07/13/20 Unknown History Active Medications: Generic Name Dose Route Start Last Admin Trade Name Freq PRN Reason Stop Dose Admin Acetaminophen 650 mg 07/12/20 11:00 07/17/20 10:27 Tylenol PO 650 mg Q4H PRN Administration Pain MILD(1-3)/Fever >100.5/FERNANDEZ Aspirin 81 mg 07/14/20 10:00 07/17/20 11:37 Baby Aspirin PO 81 mg QDAY TIM Administration Atorvastatin Calcium 80 mg 07/16/20 22:00 07/16/20 21:01 Lipitor PO 80 mg QHS TIM Administration Dextrose 50 ml 07/12/20 11:45 D50w (25gm) Syringe IV Q30MIN PRN Hypoglycemia Protocol Docusate Sodium 100 mg 07/12/20 22:00 07/17/20 11:37 Colace PO 100 mg BID TIM Administration Famotidine 20 mg 07/13/20 10:00 07/17/20 11:37 Pepcid PO 20 mg DAILY TIM Administration Gabapentin 300 mg 07/13/20 08:00 07/17/20 11:39 Gabapentin PO 300 mg TID TIM Administration Heparin Sodium (Porcine) 5,000 unit 07/12/20 14:00 07/17/20 06:17 Heparin SUB-Q 5,000 unit Q8HR TIM Administration Hydralazine HCl 50 mg 07/17/20 11:30 Apresoline PO Q8HR TIM Cefepime HCl 2 gm in 100 mls @ 200 mls/hr 07/16/20 10:00 07/17/20 11:36 Cefepime/Ns 2 Gm/100 Ml IV 07/27/20 22:29 200 mls/hr Q12HR TIM Administration Insulin Glargine 32 units 07/17/20 22:00 Lantus SUB-Q HS [facility] Insulin Human Lispro 0 unit 07/12/20 16:30 07/17/20 07:30 Humalog SUB-Q Not Given ACHS [facility] Protocol Isosorbide Mononitrate 30 mg 07/16/20 16:21 07/17/20 11:36 Imdur PO 30 mg QDAY TIM Administration Losartan Potassium 50 mg 07/15/20 14:00 07/17/20 11:38 Cozaar PO 50 mg QDAY [facility] Administration Metoprolol Tartrate 25 mg 07/16/20 22:00 07/17/20 11:37 Metoprolol PO 25 mg BID TIM Administration Ondansetron HCl 4 mg 07/12/20 11:00 Zofran IV Q8H PRN Nausea And Vomiting Oxycodone/Acetaminophen 1 tab 07/12/20 11:00 07/17/20 07:33 Percocet 5/325 PO 1 tab Q6H PRN Administration Pain, Moderate (4-6) Potassium Chloride 40 meq 07/17/20 09:00 K-Dur PO 07/17/20 12:00 ONCE TIM Senna 8.6 mg 07/12/20 22:00 07/17/20 11:37 Senokot PO 8.6 mg Q12HR TIM Administration Sodium Chloride 10 ml 07/12/20 22:00 07/17/20 11:38 Sodium Chloride Flush Syringe 10 Ml IV 10 ml BID TIM Administration Sodium Chloride 10 ml 07/12/20 10:31 Sodium Chloride Flush Syringe 10 Ml IV PRN PRN LINE FLUSH HEART Score - HEART Score EKG: Normal Age: 45-65 Risk factors: 1-2 risk factors Troponin: Troponin T 0.104 ng/mL (0.00-0.029) H* 07/14/20 05:55 Troponin: 1-3x normal limit
--- NOTE | 2020-07-17 13:33 | Progress Note ---
Assessment and Plan Cultures: Blood culture 07/12/2020 E. coli resistant to fluoroquinolones. COVID-19 negative A/P: 64-year-old female past medical history obesity, hypertension, CVA with residual right-sided weakness, [place], diabetes admitted with sepsis likely secondary to pyelonephritis #Acute sepsis: Present with fevers and tachycardia likely secondary to pyelonephritis. Fevers resolved. #Right pyelonephritis: Suspicious on CT with significant pyuria on urinalysis. #Abdominal pain: Questionable passed gallstone given cholelithiasis without inflammation. #CKD: Renally adjust antibiotics Recs: -De-escalate cefepime to ceftriaxone. -When ready for discharge would discharge with Keflex 500 mg every 6 hours. Stop date for antibiotics 07/22/2020. -Noted plan for cystoscopy, if occurring after stop date of antibiotics, would continue antibiotics until the day after cystoscopy performed. Thank you for the consult, we will continue to follow. Sabas Macias MD O: [phone] F: [phone] Subjective Date of service: 07/17/20 Principal diagnosis: NSTEMI Type 2 Interval history: Afebrile, normal white count. No acute complaints. Objective - Exam Narrative Exam: Physical exam deferred due to PPE conservation strategy. Please refer to primary team's note. - Constitutional Vitals: Vital Signs Temp Pulse Resp BP Pulse Ox 98.7 F 79 16 205/88 95 07/17/20 06:47 07/17/20 06:47 07/17/20 10:27 07/17/20 10:21 07/17/20 06:47 Temperature -Last 24 Hours Temperature 98.7 F Temperature 98.7 F Temperature 99.2 F - Labs CBC & Chem 7: 07/17/20 05:49 07/17/20 05:49 Labs: Abnormal lab results 07/16/20 07/16/20 07/17/20 Range/Units 16:28 23:38 05:49 Hgb 10.0 L (10.1-14.3) gm/dl MCV 76 L (79-97) fl MCH 25 L (28-32) pg RDW 15.3 H (13.2-15.2) % [place] % (Auto) 12.3 H (0.0-7.3) % Eos % (Auto) 7.1 H (0.0-4.3) % [place] # (Auto) 1.1 H (0.0-0.8) K/mm3 Eos # (Auto) 0.6 H (0.0-0.4) K/mm3 Sodium (137-145) mmol/L Potassium (3.6-5.0) mmol/L Chloride (98-107) mmol/L BUN (7-17) mg/dL Creatinine (0.6-1.2) mg/dL Glucose (65-100) mg/dL POC Glucose 355 H 225 H (70-105) Albumin (3.9-5) g/dL 07/17/20 07/17/20 Range/Units 05:49 07:26 Hgb (10.1-14.3) gm/dl MCV (79-97) fl MCH (28-32) pg RDW (13.2-15.2) % [place] % (Auto) (0.0-7.3) % Eos % (Auto) (0.0-4.3) % [place] # (Auto) (0.0-0.8) K/mm3 Eos # (Auto) (0.0-0.4) K/mm3 Sodium 148 H (137-145) mmol/L Potassium 3.2 L (3.6-5.0) mmol/L Chloride 108.9 H (98-107) mmol/L BUN 30 H (7-17) mg/dL Creatinine 1.6 H (0.6-1.2) mg/dL Glucose 187 H (65-100) mg/dL POC Glucose 214 H (70-105) Albumin 3.2 L (3.9-5) g/dL
--- NOTE | 2020-07-17 14:46 | Treadmill Report ---
NUCLEAR PERFUSION STUDY REASON FOR STUDY: Chest pain and non-ST elevation myocardial infarction type 2. IMAGING PROTOCOL: The patient received 10 mCi of Technetium 99m Tetrofosmin for resting image and 28 mCi of Technetium 99m Tetrofosmin for stress imaging. The imaging for the whole procedure was completed 30-90 minutes following the initial injection of Technetium 99m Tetrofosmin. The SPECT imaging in the 180 degree arc was performed in the right anterior oblique projection. Computerized reconstruction of the images was performed for analysis. IMAGING RESULTS: Normal cavity size from stress to rest. Normal distribution of radionuclide in the anterior, inferior, septal, and apical regions. Gated SPECT, EF of 62% with no wall motion abnormality. The patient infused Lexiscan with no EKG changes. SUMMARY: 1. Negative Lexiscan EKG. 2. Normal rest and stress myocardial perfusion scan. No significant ischemia. No wall motion abnormality. Gated SPECT, EF of 62%. JOB# [id number] RHONA/MELONY
[2020-07-17] MEDS: cefTRIAXone/NS 2 GM/100 ML 2 GM/100 ML BAG IV SCH (15:00)
--- NOTE | 2020-07-17 15:44 | Progress Note ---
Assessment and Plan - Patient Problems (1) Sepsis Current Visit: Yes Status: Acute Plan to address problem: Presented with fevers and tachycardia likely secondary to pyonephritis Antibiotic therapy Trend CBC ID consulted 07/12 blood culture x2 NGTD 07/12 urine culture with GNR, sensitivity and speciation to follow (2) Pyelonephritis, acute Current Visit: Yes Status: Acute Plan to address problem: 07/12 CTA abdomen/pelvis without contrast: Atelectatic changes noted in the lung bases. Advanced right hydronephrosis with cortical thinning which is likely chronic, due to chronic UPJ obstruction with asymmetric right perinephric stranding. Cholelithiasis with no biliary dilation or gallbladder inflammation. Cecum and ascending colon are mildly distended with fluid with no intrinsic inflammation. Infectious disease consulted 07/12 urine analysis shows pyuria and leukocyte esterase 07/12 urine culture pending IV antibiotic therapy; 07/17 De-escalate cefepime to ceftriaxone by ID Trend CBC Per ID: When ready for discharge would discharge with Keflex 500 mg every 6 hours. Stop date for antibiotics 07/22/2020. If cystoscopy occurs after 07/22 ID recommends to continue antibiotics till 07/23 (3) Hydronephrosis, right Current Visit: Yes Status: Acute Plan to address problem: 07/12 CTA abdomen/pelvis without contrast: Advanced right hydronephrosis with cortical thinning which is likely chronic, due to chronic UPJ obstruction with asymmetric right perinephric stranding. Urology consulted 07/16 Nuclear med renal scan obtained to evaluate for splinting Per cardiology: Should cystoscopy/stent be warranted, pt is mod-high risk from a Cardiology perspective (RCRI Class IV, 3 points, 15.0% risk of MACE); however, there are no cardiac contraindications to intervention at this time. 07/17: Urology plans for cystoscopy (4) VAL (acute kidney injury) Current Visit: Yes Status: Acute Plan to address problem: Admit creatinine 2.5/42 07/13 cr/bun 3.3/62, 07/16 Cr 1.7/41, 07/17 1.6/30 s/p 1500ml NS bolus in ED Trend BMP Avoid nephrotoxic medications Renally dose medications Strict intake and output Nephrology consult requested Secondary to VMN (5) NSTEMI (non-ST elevated myocardial infarction) Current Visit: Yes Status: Acute Plan to address problem: type II troponin leak in setting of VAL Trend CE (0.171 -> 0.134 -> 0.130) Patient denies any chest, jaw, upper back, shoulder, left arm pain, diaphoresis or current nausea Cardiology consulted Remote telemetry 07/12 ECG in the ED shows NSR 07/17 Lexiscan shows normal rest and stress myocardial perfusion, no significant ischemia, 1 no wall motion abnormality, gated SPECT, EF 62% Initiated on aspirin 81, statin, beta-emmanuel (6) Acute abdominal pain Current Visit: Yes Status: Acute Plan to address problem: Supportive care Analgesia therapy Secondary to pyelonephritis (7) Elevated d-dimer Current Visit: Yes Status: Acute Plan to address problem: Admit D dimer 5255 07/12 VQ scan shows low probability of a pulmonary embolism Trend D-dimerl (8) Hypokalemia Current Visit: Yes Status: Resolved Plan to address problem: Admit potassium 3.4, 07/13 potassium 4.4 Repleted in the ED Trend BMP Replete as needed 07/16 K 3.5, repleted, 07/17 K 3.2, repleted (9) Cholelithiasis Current Visit: Yes Status: Acute Qualifiers: Cholelithiasis location: gallbladder Cholecystitis presence: without cholecystitis Biliary obstruction: without biliary obstruction Qualified Code(s): K80.20 - Calculus of gallbladder without cholecystitis without obstruction Plan to address problem: 07/12 CT abdomen pelvis without contrast shows cholelithiasis without biliary duct dilation or gallbladder inflammation 07/12 abdominal ultrasound shows cholelithiasis (largest measuring 2 cm) with no gallbladder wall thickening or per cholecystic fluid. Bile ducts are normal with the common bile duct measuring 4 mm No acute intervention needed at this time (10) Diabetes mellitus Current Visit: Yes Status: Chronic Plan to address problem: 07/12 Hemoglobin A1c 6.7 SSI CC renal diet Accu-Cheks ACHS 07/17 restarted home Lantus (11) HTN (hypertension) Current Visit: Yes Status: Chronic Qualifiers: Hypertension type: essential hypertension Qualified Code(s): I10 - Essential (primary) hypertension Plan to address problem: Anti htn regimen: imdur, metoprolol, losartan, hydralazine As needed labetalol Blood pressure monitor per protocol (12) CAD (coronary artery disease) Current Visit: Yes Status: Chronic Plan to address problem: Statin therapy (13) Hypernatremia Current Visit: Yes Status: Acute Plan to address problem: - 07/16 Na 146 - 07/17 148 - Trend BMP (14) Hyperchloremia Current Visit: Yes Status: Acute Plan to address problem: -07/16 Chloride 105, 07/17 108.9 - Trend BMP - No acidosis noted at this time (15) DVT prophylaxis Current Visit: Yes Status: Acute Plan to address problem: GI prophylaxis SCDs to bilateral lower extremities while in bed Subcu heparin History Interval history: This is a 64-year-old female with obesity, HTN, seizure, CVA x2 with residual right-sided weakness (2013,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 Work-up in the emergency department reveals VAL (Cr 2.5/BUN 42), pyelonephritis and cholelithiasis on CT scan, elevated D-dimer (5255), hypokalemia (3.4), elevated LDH (291) and CRP (3.36), urine analysis with leukocyte esterase and pyuria and elevated troponin at 0.171. ID, nephrology, urology, and cardiology are consulted. Patient received clearance for cystoscopy from cardiology yesterday. Neurology plans a cystoscopy. On my exam patient states she has a headache and was medicated by the RN however her headache was not described as a thunderclap headache. Patient was hypernatremic, hyperchloremic and hypokalemic this a.m. along with persistent hyperglycemia therefore her home Lantus was restarted. ID changed her abx. 07/12: COVID 19 PCR (-) 07/13: Slight increase in her creatinine to 3.3 therefore nephrology has been consulted. Cardiology was consulted for her elevated troponins. RN RESEARCH spoke to her sister, Shi Corrigan over the phone and updated her on current treatments 07/14: Urology consulted 07/15: Consulted IR and ordered NM renal scan per urologist recs 07/16: Cards clearance for cystoscopy Hospitalist Physical - Constitutional Vitals: Temp Pulse Resp BP Pulse Ox 98.7 F 79 16 205/88 95 07/17/20 06:47 07/17/20 06:47 07/17/20 10:27 07/17/20 10:21 07/17/20 06:47 General appearance: Present: no acute distress, obese - EENT Eyes: Present: PERRL, EOM intact ENT: hearing intact, clear oral mucosa - Neck Neck: Present: supple, normal ROM - Respiratory Respiratory effort: normal Respiratory: bilateral: CTA - Cardiovascular Rhythm: regular Heart Sounds: Absent: systolic murmur, diastolic murmur - Extremities Extremities: no ischemia, pulses intact, pulses symmetrical, No edema, normal te mperature, normal color, Full ROM Peripheral Pulses: within normal limits - Abdominal General gastrointestinal: soft, tender, non-distended, normal bowel sounds Localized gastrointestinal: tender: RLQ - Integumentary Integumentary: Present: clear, warm, dry - Psychiatric Psychiatric: appropriate mood/affect - Neurologic Neurologic: CNII-XII intact, no focal deficits, moves all extremities HEART Score - HEART Score EKG: Normal Age: 45-65 Risk factors: 1-2 risk factors Troponin: Troponin T 0.104 ng/mL (0.00-0.029) H* 07/14/20 05:55 Troponin: 1-3x normal limit Results - Labs CBC & Chem 7: 07/17/20 05:49 07/17/20 05:49 Labs: Laboratory Last Values WBC 9.0 K/mm3 (4.5-11.0) 07/17/20 05:49 RBC 3.98 M/mm3 (3.65-5.03) 07/17/20 05:49 Hgb 10.0 gm/dl (10.1-14.3) L 07/17/20 05:49 Hct 30.4 % (30.3-42.9) 07/17/20 05:49 MCV 76 fl (79-97) L 07/17/20 05:49 MCH 25 pg (28-32) L 07/17/20 05:49 MCHC 33 % (30-34) 07/17/20 05:49 RDW 15.3 % (13.2-15.2) H 07/17/20 05:49 Plt Count 244 K/mm3 (140-440) 07/17/20 05:49 Lymph % (Auto) 25.2 % (13.4-35.0) 07/17/20 05:49 [place] % (Auto) 12.3 % (0.0-7.3) H 07/17/20 05:49 Eos % (Auto) 7.1 % (0.0-4.3) H 07/17/20 05:49 Baso % (Auto) 0.4 % (0.0-1.8) 07/17/20 05:49 Lymph # (Auto) 2.3 K/mm3 (1.2-5.4) 07/17/20 05:49 [place] # (Auto) 1.1 K/mm3 (0.0-0.8) H 07/17/20 05:49 Eos # (Auto) 0.6 K/mm3 (0.0-0.4) H 07/17/20 05:49 Baso # (Auto) 0.0 K/mm3 (0.0-0.1) 07/17/20 05:49 Seg Neutrophils % 55.0 % (40.0-70.0) 07/17/20 05:49 Seg Neutrophils # 4.9 K/mm3 (1.8-7.7) 07/17/20 05:49 PT 16.3 Sec. (12.2-14.9) H 07/12/20 03:38 INR 1.29 (0.87-1.13) H 07/12/20 03:38 D-Dimer 1270.64 ng/mlDDU (0-234) H 07/14/20 10:38 Sodium 148 mmol/L (137-145) H 07/17/20 05:49 Potassium 3.2 mmol/L (3.6-5.0) L 07/17/20 05:49 Chloride 108.9 mmol/L (98-107) H 07/17/20 05:49 Carbon Dioxide 25 mmol/L (22-30) 07/17/20 05:49 Anion Gap 17 mmol/L 07/17/20 05:49 BUN 30 mg/dL (7-17) H 07/17/20 05:49 Creatinine 1.6 mg/dL (0.6-1.2) H 07/17/20 05:49 Estimated GFR 40 ml/min 07/17/20 05:49 BUN/Creatinine Ratio 19 % 07/17/20 05:49 Glucose 187 mg/dL (65-100) H 07/17/20 05:49 POC Glucose 243 mg/dL (70-105) H 07/17/20 12:15 Hemoglobin A1c 6.7 % (4-6) H 07/12/20 16:44 Lactic Acid 1.60 mmol/L (0.7-2.0) 07/12/20 03:38 Calcium 9.2 mg/dL (8.4-10.2) 07/17/20 05:49 Magnesium 1.80 mg/dL (1.7-2.3) 07/17/20 13:47 Ferritin 139.8 ng/mL (10.0-200.0) 07/12/20 03:38 Total Bilirubin 0.20 mg/dL (0.1-1.2) 07/17/20 05:49 Direct Bilirubin < 0.2 mg/dL (0-0.2) 07/12/20 03:38 Indirect Bilirubin 0.4 mg/dL 07/12/20 03:38 AST 18 units/L (5-40) 07/17/20 05:49 ALT 24 units/L (7-56) 07/17/20 05:49 Alkaline Phosphatase 58 units/L (35-129) 07/17/20 05:49 Lactate Dehydrogenase 290 units/L (91-180) H 07/12/20 03:38 Lactate Dehydrogenase 291 units/L (91-180) H 07/12/20 03:38 Total Creatine Kinase 787 units/L (30-135) H 07/12/20 19:52 CK-MB (CK-2) 8.8 ng/mL (0.0-4.0) H 07/12/20 19:52 CK-MB (CK-2) Rel Index 1.1 (0-4) 07/12/20 19:52 Troponin T 0.104 ng/mL (0.00-0.029) H* 07/14/20 05:55 C-Reactive Protein 33.50 mg/dL (0.00-1.30) H 07/12/20 03:38 C-Reactive Protein 33.60 mg/dL (0.00-1.30) H 07/12/20 03:38 Total Protein 6.3 g/dL (6.3-8.2) 07/17/20 05:49 Albumin 3.2 g/dL (3.9-5) L 07/17/20 05:49 Albumin/Globulin Ratio 1.0 % 07/17/20 05:49 Triglycerides 115 mg/dL (2-149) 07/12/20 03:38 Cholesterol 111 mg/dL (50-199) 07/12/20 03:38 LDL Cholesterol Direct 33 mg/dL (50-130) L 07/12/20 03:38 HDL Cholesterol 54 mg/dL (40-59) 07/12/20 03:38 Cholesterol/HDL Ratio 2.05 % 07/12/20 03:38 Lipase 28 units/L (13-60) 07/12/20 03:38 Procalcitonin 49.70 ng/mL (<0.15) 07/12/20 11:23 Urine Color Red (Yellow) 07/12/20 04:08 Urine Turbidity Turbid (Clear) 07/12/20 04:08 Urine pH 5.0 (5.0-7.0) 07/12/20 04:08 Ur Specific [place] 1.017 (1.003-1.030) 07/12/20 04:08 Urine Protein 100 mg/dl mg/dL (Negative) 07/12/20 04:08 Urine Glucose (UA) Neg mg/dL (Negative) 07/12/20 04:08 Urine Ketones Neg mg/dL (Negative) 07/12/20 04:08 Urine Blood Lg (Negative) 07/12/20 04:08 Urine Nitrite Neg (Negative) 07/12/20 04:08 Urine Bilirubin Neg (Negative) 07/12/20 04:08 Urine Urobilinogen < 2.0 mg/dL (<2.0) 07/12/20 04:08 Ur Leukocyte Esterase Mod (Negative) 07/12/20 04:08 Urine WBC (Auto) > 182.0 /HPF (0.0-6.0) H 07/12/20 04:08 Urine RBC (Auto) > 182.0 /HPF (0.0-6.0) 07/12/20 04:08 U Epithel Cells (Auto) 16.0 /HPF (0-13.0) H 07/12/20 04:08 Urine Bacteria (Auto) 3+ /HPF (Negative) 07/12/20 04:08 Urine WBC Clumps 3+ /HPF 07/12/20 04:08 Urine Sperm 2+ /HPF (RN RESEARCH) 07/12/20 04:08 Coronavirus (PCR) Negative (Negative) 07/12/20 10:51 Microbiology: Microbiology 07/12/20 04:17 Peripheral/Venous Blood Culture - Final NO GROWTH AFTER 5 DAYS 07/12/20 03:38 Peripheral/Venous Blood Culture - Final NO GROWTH AFTER 5 DAYS - Diagnostic Impressions Diagnostic Impressions: Echocardiogram 07/13/20 09:15 Transthoracic Echocardiogram Indication: elevated trop BP: 154/80 HR: 73 Conclusions *The left ventricular chamber size is normal. *Mild to moderate concentric left ventricular hypertrophy is observed. *The estimated ejection fraction is 55-60%. *Abnormal left ventricular diastolic filling is observed, consistent with impaired relaxation. *The aortic valve structure is normal. *There is trace of aortic regurgitation. *The right ventricular systolic pressure is calculated at 37 mmHg. Findings Left Ventricle: The left ventricular chamber size is normal. Mild to moderate concentric left ventricular hypertrophy is observed. Global left ventricular wall motion and contractility are within normal limits. Global left ventricular systolic function is normal. The estimated ejection fraction is 55-60%. Abnormal left ventricular diastolic function is observed. Abnormal left ventricular diastolic filling is observed, consistent with impaired relaxation. Left Atrium: The left atrium is normal in size with no visual thrombus identified. Right Ventricle: The right ventricular cavity size is normal. The right ventricular global systolic function is normal. Right Atrium: The right atrium is mildly dilated. The interatrial septum appears normal. There is evidence of an atrial septal aneurysm. Aortic Valve: The aortic valve structure is normal. There is trace of aortic regurgitation. There is no evidence of aortic stenosis. Mitral Valve: The mitral valve leaflets appear normal. There is no evidence of mitral regurgitation. There is no evidence of mitral stenosis. Tricuspid Valve: The tricuspid valve leaflets are normal. There is mild tricuspid regurgitation. The right ventricular systolic pressure is calculated at 37 mmHg. There is no tricuspid stenosis. Pulmonic Valve: The pulmonic valve appears normal. There is mild pulmonic regurgitation. There is no pulmonic stenosis. Pericardium: There is no pericardial effusion. Aorta: There is no dilatation of the ascending aorta. There is no dilatation of the aortic arch. There is no dilatation of the descending thoracic aorta. There is no dilatation of the aortic root. Venous: The inferior vena cava appears normal in size. Measurements Chambers 2D Name Value Normal Range IVSd (2D) 1.55 cm (0.6 - 1.1) LVPWd (2D) 1.53 cm (0.6 - 1.1) LVIDd (2D) 4.54 cm (3.7 - 5.6) LVIDs (2D) 2.98 cm (2 - 3.8) LV FS (2D) 34.37 % - EF Teichholz (2D) 63.53 % - Ao root diameter (2D) 3.26 cm (2 - 3.7) Volumes/Mass Name Value Normal Range LA ESV SP 4CH (A/L) 61.16 ml - LA ESV SP 2CH (A/L) 63.94 ml - LA ESV BP (A/L) 65.9 ml - LA ESV SP 4CH (MOD) 57.02 ml - LA ESV SP 2CH (MOD) 62.44 ml - LA ESV BP (MOD) 62.5 ml - LA ESV BP (MOD) index 28.8 ml/m2 - LV EDV SP 4CH (MOD) 150.49 ml - LV ESV SP 4CH (MOD) 64.14 ml - EF SP 4CH (MOD) 57.38 % - LV EDV SP 2CH (MOD) 111.1 ml - LV ESV SP 2CH (MOD) 44.83 ml - EF SP 2CH (MOD) 59.65 % - LV EDV BP 130.22 ml - LV ESV BP 54.23 ml - BP EF (MOD) 58.35 % - Diastolic/Systolic Function Name Value Normal Range MV E-wave Vmax 0.64 m/sec - MV deceleration time 202.51 msec - MV A-wave Vmax 0.92 m/sec - MV E:A ratio 0.69 ratio - Aortic Valve Name Value Normal Range AV Vmax 1.36 m/sec - AV VTI 23.86 cm - AV peak gradient 7.35 mmHg - AV mean gradient 3.45 mmHg - LVOT diameter 2.18 cm - LVOT Vmax 1.18 m/sec - LVOT VTI 25.22 cm - LVOT peak gradient 5.55 mmHg - LVOT mean gradient 3.24 mmHg - SV LVOT 93.69 ml - DEBBIE (continuity Vmax) 3.23 cm2 - DEBBIE (continuity VTI) 3.93 cm2 - Ascending Ao 3.07 cm - Tricuspid Valve Name Value Normal Range TR Vmax 2.92 m/sec - TR peak gradient 34 mmHg - RAP 3 mmHg - RVSP 37 mmHg - Pulmonic Valve/Qp:Qs Name Value Normal Range PV Vmax 1.09 m/sec - PV peak gradient 4.71 mmHg - HI end-diastolic Vmax 1.35 m/sec - PV acceleration time 68.51 msec - Tejeda/IV: Voiding Method Toilet IV Catheter Type [Right INT / Saline Lock Forearm] IV Catheter Type [Left INT / Saline Lock Antecubital] Active Medications - Current Medications Current Medications: Generic Name Dose Route Start Last Admin Trade Name Freq PRN Reason Stop Dose Admin Acetaminophen 650 mg 07/12/20 11:00 07/17/20 10:27 Tylenol PO 650 mg Q4H PRN Administration Pain MILD(1-3)/Fever >100.5/FERNANDEZ Aspirin 81 mg 07/14/20 10:00 07/17/20 11:37 Baby Aspirin PO 81 mg QDAY TIM Administration Atorvastatin Calcium 80 mg 07/16/20 22:00 07/16/20 21:01 Lipitor PO 80 mg QHS TIM Administration Dextrose 50 ml 07/12/20 11:45 D50w (25gm) Syringe IV Q30MIN PRN Hypoglycemia Protocol Docusate Sodium 100 mg 07/12/20 22:00 07/17/20 11:37 Colace PO 100 mg BID TIM Administration Famotidine 20 mg 07/13/20 10:00 07/17/20 11:37 Pepcid PO 20 mg DAILY TIM Administration Gabapentin 300 mg 07/13/20 08:00 07/17/20 11:39 Gabapentin PO 300 mg TID TIM Administration Heparin Sodium (Porcine) 5,000 unit 07/12/20 14:00 07/17/20 06:17 Heparin SUB-Q 5,000 unit Q8HR TIM Administration Hydralazine HCl 50 mg 07/17/20 11:30 Apresoline PO Q8HR TIM Ceftriaxone Sodium 2 gm in 100 mls @ 200 mls/hr 07/17/20 15:00 Rocephin/Ns 2 Gm/100 Ml IV 07/22/20 10:29 Q24HR TIM Protocol Insulin Glargine 32 units 07/17/20 22:00 Lantus SUB-Q HS TIM Insulin Human Lispro 0 unit 07/12/20 16:30 07/17/20 11:30 Humalog SUB-Q 2 unit ACHS TIM Administration Protocol Isosorbide Mononitrate 30 mg 07/16/20 16:21 07/17/20 11:36 Imdur PO 30 mg QDAY TIM Administration Losartan Potassium 50 mg 07/15/20 14:00 07/17/20 11:38 Cozaar PO 50 mg QDAY TIM Administration Metoprolol Tartrate 25 mg 07/16/20 22:00 07/17/20 11:37 Metoprolol PO 25 mg BID TIM Administration Ondansetron HCl 4 mg 07/12/20 11:00 Zofran IV Q8H PRN Nausea And Vomiting Oxycodone/Acetaminophen 1 tab 07/12/20 11:00 07/17/20 07:33 Percocet 5/325 PO 1 tab Q6H PRN Administration Pain, Moderate (4-6) Senna 8.6 mg 07/12/20 22:00 07/17/20 11:37 Senokot PO 8.6 mg Q12HR TIM Administration Sodium Chloride 10 ml 07/12/20 22:00 07/17/20 11:38 Sodium Chloride Flush Syringe 10 Ml IV 10 ml BID TIM Administration Sodium Chloride 10 ml 07/12/20 10:31 Sodium Chloride Flush Syringe 10 Ml IV PRN PRN LINE FLUSH
--- NOTE | 2020-07-17 18:56 | Progress Note ---
Assessment and Plan Impression: * VAL * Sepsis * NSTEMI * Pyelonephritis * HTN * type 2 DM * Seizures * Right hydronephrosis, NM scan function 22.5% on right and 77.5% on left * urinary obstruction * anemia * Hypokalemia, * Hypernatremia, mild * Abdominal Pain Plan: * iv abx * Recommend batres catheter * Urology following, plan on cytsopscopic stent placement * Replete potassium * Discontinue ARB given current renal function, can be restarted once her kidney function improves * continue other antihypertensives, added amlodipine 5 mg daily * avoid nephrotoxins * keep MAP > 65 * cards notes reviewed, NSTEMI noted, management per cards * Covid testing noted * strict i/os * daily lytes * no indication for hd Subjective Date of service: 07/17/20 Principal diagnosis: NSTEMI Type 2 Interval history: Patient was seen for her renal issues Nursing, interdisciplinary and consult notes were reviewed Vitals, input and output, medications and labs were reviewed Acceptable urine output Objective - Exam Narrative Exam: Vitals: Reviewed General: No acute distress HEENT: Oral mucosa moist, no pharyngeal erythema, no evidence of epistaxis Neck: Supple, no evidence of any JVD, trachea midline, no thyromegaly Chest: decreased bibasilar breath sounds Heart: Regular rate and rhythm, S1-S2 heard, no S3-S4, no pericardial rub Abdomen: Soft, RUQ tenderness Extremity: No peripheral cyanosis, edema and dry skin Neurological: Alert, awake, no asterixis Dermatology; no skin rashes Back: Nontender thoracolumbar spine, no CVA tenderness Psych: No agitation and aggression Musculoskeletal: No joint effusion noted - Vital Signs Vital signs: Vital Signs - 12hr 07/17/20 07/17/20 07/17/20 09:46 09:50 10:08 Temperature Pulse Rate Respiratory Rate Blood Pressure 204/83 198/88 197/98 O2 Sat by Pulse Oximetry 07/17/20 07/17/20 07/17/20 10:15 10:17 10:19 Temperature Pulse Rate Respiratory Rate Blood Pressure 209/121 210/95 187/97 O2 Sat by Pulse Oximetry 07/17/20 07/17/20 07/17/20 10:21 10:27 11:42 Temperature 99.0 F Pulse Rate 77 Respiratory 16 18 Rate Blood Pressure 205/88 190/82 O2 Sat by Pulse 94 Oximetry 07/17/20 15:58 Temperature 97.8 F Pulse Rate 65 Respiratory 18 Rate Blood Pressure 145/78 O2 Sat by Pulse 95 Oximetry - Lab 07/17/20 05:49 07/17/20 05:49 Most recent lab results Calcium 9.2 mg/dL (8.4-10.2) 07/17/20 05:49 Magnesium 1.80 mg/dL (1.7-2.3) 07/17/20 13:47 Medications & Allergies - Medications Allergies/Adverse Reactions: Allergies No Known Allergies Allergy (Verified 07/12/20 05:04) Home Medications: Home Medications Medication Instructions Recorded Confirmed Last Taken Type Gabapentin 300 mg PO TID 07/12/20 07/12/20 07/11/20 History Aspirin 325 mg PO QDAY 07/13/20 07/13/20 Unknown History Atorvastatin [Lipitor Tab] 80 mg PO DAILY 07/13/20 07/13/20 Unknown History HYDROcodone/ACETAMINOPHEN 1 each PO TID 07/13/20 07/13/20 Unknown History [Hydrocodone-Acetamin 7.5-300] Insulin Glargine [Lantus VIAL] 32 units SQ HS 07/13/20 07/13/20 Unknown History Losartan [Cozaar] 50 mg PO QDAY 07/13/20 07/13/20 Unknown History Lutein 20 mg PO DAILY 07/13/20 07/13/20 Unknown History NIFEdipine [Nifedipine ER] 60 mg PO DAILY 07/13/20 07/13/20 Unknown History SUMAtriptan succinate [SUMAtriptan 100 mg PO DAILY 07/13/20 07/13/20 Unknown Hi story Succinate] Sertraline [Zoloft] 100 mg PO QDAY 07/13/20 07/13/20 Unknown History levETIRAcetam [Keppra TAB] 500 mg PO BID 07/13/20 07/13/20 Unknown History Active Medications: Generic Name Dose Route Start Last Admin Trade Name Freq PRN Reason Stop Dose Admin Acetaminophen 650 mg 07/12/20 11:00 07/17/20 10:27 Tylenol PO 650 mg Q4H PRN Administration Pain MILD(1-3)/Fever >100.5/FERNANDEZ Aspirin 81 mg 07/14/20 10:00 07/17/20 11:37 Baby Aspirin PO 81 mg QDAY TIM Administration Atorvastatin Calcium 80 mg 07/16/20 22:00 07/16/20 21:01 Lipitor PO 80 mg QHS TIM Administration Dextrose 50 ml 07/12/20 11:45 D50w (25gm) Syringe IV Q30MIN PRN Hypoglycemia Protocol Docusate Sodium 100 mg 07/12/20 22:00 07/17/20 11:37 Colace PO 100 mg BID TIM Administration Famotidine 20 mg 07/13/20 10:00 07/17/20 11:37 Pepcid PO 20 mg DAILY TIM Administration Gabapentin 300 mg 07/13/20 08:00 07/17/20 14:00 Gabapentin PO 300 mg TID TIM Administration Heparin Sodium (Porcine) 5,000 unit 07/12/20 14:00 07/17/20 14:00 Heparin SUB-Q 5,000 unit Q8HR TIM Administration Hydralazine HCl 50 mg 07/17/20 11:30 07/17/20 14:00 Apresoline PO 50 mg Q8HR TIM Administration Ceftriaxone Sodium 2 gm in 100 mls @ 200 mls/hr 07/17/20 15:00 07/17/20 15:00 Rocephin/Ns 2 Gm/100 Ml IV 07/22/20 10:29 200 mls/hr Q24HR TIM Administration Protocol Insulin Glargine 32 units 07/17/20 22:00 Lantus SUB-Q HS TIM Insulin Human Lispro 0 unit 07/12/20 16:30 07/17/20 16:16 Humalog SUB-Q 300 unit ACHS TIM Administration Protocol Isosorbide Mononitrate 60 mg 07/18/20 10:00 Imdur PO QDAY TIM Losartan Potassium 50 mg 07/15/20 14:00 07/17/20 11:38 Cozaar PO 50 mg QDAY TIM Administration Metoprolol Tartrate 25 mg 07/16/20 22:00 07/17/20 11:37 Metoprolol PO 25 mg BID TIM Administration Ondansetron HCl 4 mg 07/12/20 11:00 Zofran IV Q8H PRN Nausea And Vomiting Oxycodone/Acetaminophen 1 tab 07/12/20 11:00 07/17/20 16:42 Percocet 5/325 PO 1 tab Q6H PRN Administration Pain, Moderate (4-6) Senna 8.6 mg 07/12/20 22:00 07/17/20 11:37 Senokot PO 8.6 mg Q12HR TIM Administration Sodium Chloride 10 ml 07/12/20 22:00 07/17/20 11:38 Sodium Chloride Flush Syringe 10 Ml IV 10 ml BID TIM Administration Sodium Chloride 10 ml 07/12/20 10:31 Sodium Chloride Flush Syringe 10 Ml IV PRN PRN LINE FLUSH
[2020-07-17] MEDS: INSULIN GLARGINE 100 UNITS/ML SUB-Q SCH (23:13)
[2020-07-18] MEDS: hydrALAZINE 25 MG TAB PO SCH ×3 (05:20→22:57)
[2020-07-18] MEDS: HEPARIN 5,000 UNIT/1 ML VIAL SUB-Q SCH ×3 (05:21→22:57)
[2020-07-18] MEDS: oxyCODONE /ACETAMINOPHEN 5-325MG TAB PO PRN (05:21)
[2020-07-18 08:33] LABS: Basophils % (Auto) 0.5 % (0.0-1.8); Eosinophils # (Auto) 0.8 K/mm3 (0.0-0.4); Eosinophils % (Auto) 10.3 % (0.0-4.3); Hematocrit 30.2 % (30.3-42.9); Hemoglobin 9.9 gm/dl (10.1-14.3); Lymphocytes # (Auto) 2.1 K/mm3 (1.2-5.4); Lymphocytes % (Auto) 26.1 % (13.4-35.0); Mean Corpuscular HGB Conc 33 % (30-34); Mean Corpuscular Volume 77 fl (79-97); Monocytes % (Auto) 12.5 % (0.0-7.3); Platelet Count 264 K/mm3 (140-440); Red Blood Count 3.92 M/mm3 (3.65-5.03); Red Cell Distribution Width 15.8 % (13.2-15.2)
[2020-07-18 09:31] LABS: Albumin 3.2 g/dL (3.9-5); Calcium 9.6 mg/dL (8.4-10.2)
[2020-07-18] MEDS: INSULIN LISPRO 100 UNIT/ML VIAL 3 mL SUB-Q SCH ×4 (09:40→23:16)
--- NOTE | 2020-07-18 09:50 | Progress Note ---
Assessment and Plan Impression: * VAL * Sepsis * NSTEMI * Pyelonephritis * HTN * type 2 DM * Seizures * Right hydronephrosis, NM scan function 22.5% on right and 77.5% on left * urinary obstruction * anemia * Hypokalemia, * Hypernatremia * Abdominal Pain Plan: * iv abx * increase oral hydration given free water deficit * Urology following, s/p cytsopscopic stent placement today 07/18 * Replete potassium * Discontinued ARB given current renal function, can be restarted once her kidney function improves * continue other antihypertensives, added amlodipine 5 mg daily * avoid nephrotoxins * keep MAP > 65 * cards notes reviewed, NSTEMI noted, management per cards * Covid testing noted * strict i/os * daily lytes * no indication for hd Subjective Date of service: 07/18/20 Principal diagnosis: NSTEMI Type 2 Interval history: Patient was seen for her renal issues Nursing, interdisciplinary and consult notes were reviewed Vitals, input and output, medications and labs were reviewed Urine output 2.1 L Objective - Exam Narrative Exam: Vitals: Reviewed General: No acute distress HEENT: Oral mucosa moist, no pharyngeal erythema, no evidence of epistaxis Neck: Supple, no evidence of any JVD, trachea midline, no thyromegaly Chest: decreased bibasilar breath sounds Heart: Regular rate and rhythm, S1-S2 heard, no S3-S4, no pericardial rub Abdomen: Soft, RUQ tenderness Extremity: No peripheral cyanosis, edema and dry skin Neurological: Alert, awake, no asterixis Dermatology; no skin rashes Back: Nontender thoracolumbar spine, no CVA tenderness Psych: No agitation and aggression Musculoskeletal: No joint effusion noted - Vital Signs Vital signs: Vital Signs - 12hr 07/17/20 07/17/20 07/18/20 23:05 23:32 03:03 Temperature 98.7 F 98.7 F Pulse Rate 54 L 74 Respiratory 24 22 Rate Blood Pressure 170/93 Blood Pressure 170/82 [Right] O2 Sat by Pulse 98 94 96 Oximetry 07/18/20 06:18 Temperature 98.6 F Pulse Rate 71 Respiratory 20 Rate Blood Pressure 176/85 Blood Pressure [Right] O2 Sat by Pulse 98 Oximetry - Lab 07/18/20 08:09 07/18/20 08:09 Most recent lab results Calcium 9.6 mg/dL (8.4-10.2) 07/18/20 08:09 Magnesium 1.80 mg/dL (1.7-2.3) 07/17/20 13:47 Medications & Allergies - Medications Allergies/Adverse Reactions: Allergies No Known Allergies Allergy (Verified 07/12/20 05:04) Home Medications: Home Medications Medication Instructions Recorded Confirmed Last Taken Type Gabapentin 300 mg PO TID 07/12/20 07/12/20 07/11/20 History Aspirin 325 mg PO QDAY 07/13/20 07/13/20 Unknown History Atorvastatin [Lipitor Tab] 80 mg PO DAILY 07/13/20 07/13/20 Unknown History HYDROcodone/ACETAMINOPHEN 1 each PO TID 07/13/20 07/13/20 Unknown History [Hydrocodone-Acetamin 7.5-300] Insulin Glargine [Lantus VIAL] 32 units SQ HS 07/13/20 07/13/20 Unknown History Losartan [Cozaar] 50 mg PO QDAY 07/13/20 07/13/20 Unknown History Lutein 20 mg PO DAILY 07/13/20 07/13/20 Unknown History NIFEdipine [Nifedipine ER] 60 mg PO DAILY 07/13/20 07/13/20 Unknown History SUMAtriptan succinate [SUMAtriptan 100 mg PO DAILY 07/13/20 07/13/20 Unknown History Succinate] Sertraline [Zoloft] 100 mg PO QDAY 07/13/20 07/13/20 Unknown History levETIRAcetam [Keppra TAB] 500 mg PO BID 07/13/20 07/13/20 Unknown History Active Medications: Generic Name Dose Route Start Last Admin Trade Name Freq PRN Reason Stop Dose Admin Acetaminophen 650 mg 07/12/20 11:00 07/17/20 10:27 Tylenol PO 650 mg Q4H PRN Administration Pain MILD(1-3)/Fever >100.5/FERNANDEZ Amlodipine Besylate 5 mg 07/18/20 10:00 Amlodipine PO QDAY TIM Aspirin 81 mg 07/14/20 10:00 07/17/20 11:37 Baby Aspirin PO 81 mg QDAY TIM Administration Atorvastatin Calcium 80 mg 07/16/20 22:00 07/17/20 23:10 Lipitor PO 80 mg QHS TIM Administration Dextrose 50 ml 07/12/20 11:45 D50w (25gm) Syringe IV Q30MIN PRN Hypoglycemia Protocol Docusate Sodium 100 mg 07/12/20 22:00 07/17/20 23:12 Colace PO Not Given BID [facility] Famotidine 20 mg 07/13/20 10:00 07/17/20 11:37 Pepcid PO 20 mg DAILY TIM Administration Gabapentin 300 mg 07/13/20 08:00 07/17/20 23:18 Gabapentin PO 300 mg TID TIM Administration Heparin Sodium (Porcine) 5,000 unit 07/12/20 14:00 07/18/20 05:21 Heparin SUB-Q Not Given Q8HR TIM Hydralazine HCl 50 mg 07/17/20 11:30 07/18/20 05:20 Apresoline PO 50 mg Q8HR TIM Administration Ceftriaxone Sodium 2 gm in 100 mls @ 200 mls/hr 07/17/20 15:00 07/17/20 15:00 Rocephin/Ns 2 Gm/100 Ml IV 07/22/20 10:29 200 mls/hr Q24HR TIM Administration Protocol Insulin Glargine 32 units 07/17/20 22:00 07/17/20 23:13 Lantus SUB-Q 32 units HS [facility] Administration Insulin Human Lispro 0 unit 07/12/20 16:30 07/18/20 09:40 Humalog SUB-Q Not Given ACHS [facility] Protocol Isosorbide Mononitrate 60 mg 07/18/20 10:00 Imdur PO QDAY [facility] Metoprolol Tartrate 25 mg 07/16/20 22:00 07/17/20 23:11 Metoprolol PO 25 mg BID TIM Administration Ondansetron HCl 4 mg 07/12/20 11:00 Zofran IV Q8H PRN Nausea And Vomiting Oxycodone/Acetaminophen 1 tab 07/12/20 11:00 07/18/20 05:21 Percocet 5/325 PO 1 tab Q6H PRN Administration Pain, Moderate (4-6) Senna 8.6 mg 07/12/20 22:00 07/17/20 23:13 Senokot PO Not Given Q12HR TIM Sodium Chloride 10 ml 07/12/20 22:00 07/17/20 23:13 Sodium Chloride Flush Syringe 10 Ml IV 10 ml BID TIM Administration Sodium Chloride 10 ml 07/12/20 10:31 Sodium Chloride Flush Syringe 10 Ml IV PRN PRN LINE FLUSH
[2020-07-18] MEDS ORDERED: fentaNYL 100 MCG/2 ML INJ IV NR (09:52)
[2020-07-18] MEDS ORDERED: LACTATED RINGERS 1,000 ML ONE (09:58)
[2020-07-18] MEDS ORDERED: fentaNYL 100 MCG/2 ML INJ ONE (09:58)
[2020-07-18] MEDS ORDERED: LACTATED RINGERS 1,000 ML IV SCH (10:00)
[2020-07-18] MEDS ORDERED: amLODIPine 5 MG TAB PO SCH (10:00)
[2020-07-18] MEDS: cefTRIAXone/NS 2 GM/100 ML 2 GM/100 ML BAG IV SCH (10:06)
[2020-07-18] MEDS ORDERED: MIDAZOLAM 2 MG/2 ML INJ ONE (10:12)
[2020-07-18] MEDS ORDERED: HYDROmorphone 1 MG/1 ML INJ IV PRN ×2 (10:25)
[2020-07-18] MEDS ORDERED: MIDAZOLAM 2 MG/2 ML INJ IV NR (10:25)
--- NOTE | 2020-07-18 10:26 | Anesthesia Day of Surgery ---
Anesthesia Day of Surgery - Day of Surgery Patient Examined: Yes Patient H&P Reviewed: Yes Patient is NPO: Yes
[2020-07-18] MEDS ORDERED: HYDROmorphone 1 MG/1 ML INJ ONE (10:29)
[2020-07-18] MEDS ORDERED: LIDOCAINE MPF (2%) 20 MG/1 ML VIAL 5 ML ONE (10:29)
[2020-07-18] MEDS ORDERED: propofoL 200 MG/20 ML VIAL IV ONE (10:29)
--- NOTE | 2020-07-18 10:31 | Anesthesia Consultation ---
Anesthesia Consult and Med Hx Date of service: 07/18/20 - Airway Anesthetic Teeth Evaluation: Good, Crowns ROM Head & Neck: Adequate Mental/Hyoid Distance: Adequate Mallampati Class: Class III Intubation Access Assessment: Probably Good - Pre-Operative Health Status ASA Pre-Surgery Classification: ASA3 Proposed Anesthetic Plan: General - Pulmonary Hx Sleep Apnea: Yes - Cardiovascular System Hx Hypertension: Yes Hx Coronary Artery Disease: Yes Hx Heart Attack/AMI: Yes (Recent [place]. + Cardiac clearance.) - Central Nervous System Hx Seizures: Yes (02/03/20 became unconscious) CVA: Yes (Right-sided weakness) - Endocrine Hx Renal Disease: Yes (VAL. Pyelonephritis. Hydronephrosis) Hx Non-Insulin Dependent Diabetes: Yes - Other Systems Hx Alcohol Use: No Hx Cancer: No Hx Obesity: Yes
[2020-07-18] MEDS ORDERED: WATER FOR IRRIG STERILE 2000 ML IR ONE (11:06)
[2020-07-18] MEDS ORDERED: ONDANSETRON 4 MG/2 ML INJ ONE (11:17)
--- NOTE | 2020-07-18 11:17 | Post Operative Note ---
Date of procedure: 07/18/20 Pre-op diagnosis: rt hydronephrosis Post-op diagnosis: same Procedure: cysto, rpg, rt stent with external string Surgeon: LAURA GARAY Estimated blood loss: none Condition: stable (ok to dc home today, appt 2-3 weeks)
--- NOTE | 2020-07-18 13:38 | Fluoroscopy Report ---
6 fluoroscopic images submitted Indication: Intraoperative localization Impression: 6 images of the abdomen were submitted for documentation purposes with radiology involve ment. Bilateral retrograde pyelogram performed with right-sided double-J ureteral stent placement. T here is dilatation of the left pelvicalyceal system. Approximately 10 mL of Omnipaque 300 was utilize d for this exam. Please refer to the operative note for complete details. Fluoroscopic time: 9 seconds Signer Name: Harvey Coleman MD Signed: 07/18/2020 1:33 PM Workstation Name: [id number]
--- NOTE | 2020-07-18 14:00 | Progress Note ---
Assessment and Plan Cultures: Blood culture 07/12/2020 E. coli resistant to fluoroquinolones. COVID-19 negative A/P: 64-year-old female past medical history obesity, hypertension, CVA with residual right-sided weakness, [place], diabetes admitted with sepsis likely secondary to pyelonephritis #Acute sepsis: Present with fevers and tachycardia likely secondary to pyelonephritis. Fevers resolved. #Right pyelonephritis: Suspicious on CT with significant pyuria on urinalysis. #Abdominal pain: Questionable passed gallstone given cholelithiasis without inflammation. #CKD: Renally adjust antibiotics Recs: -Continue ceftriaxone. -When ready for discharge would discharge with Keflex 500 mg every 6 hours. Stop date for antibiotics 07/22/2020. -Cystoscopy performed today, continue antibiotics to above date. Thank you for the consult, we will continue to follow. Sabas Macias MD O: [phone] F: [phone] Subjective Date of service: 07/18/20 Principal diagnosis: NSTEMI Type 2 Interval history: Afebrile, normal white count. Status post cystoscopy today. Objective - Exam Narrative Exam: Physical Exam: Constitutional: Alert, cooperative. No acute distress Head, Ears, Nose: Normocephalic, atraumatic. External ears, nose normal Eyes: Conjunctivae/corneas clear. No icterus. No ptosis. Neck: Supple, no meningeal signs Oral: dentition fair, no thrush Cardiovascular: S1, S2 normal. Respiratory: Good air entry, clear to auscultation bilaterally GI: Soft, non-tender; bowel sounds normal. No peritoneal signs. Musculoskeletal: No pedal edema, no cyanosis. Skin: No rash or abscess Hem/Lymphatic: No palpable cervical or supraclavicular nodes. No lymphangitis Psych: Mood ok. Affect normal Neurological: Awake, alert, oriented. No gross abnormality - Constitutional Vitals: Vital Signs Temp Pulse Resp BP Pulse Ox 97.9 F 77 16 140/71 98 07/18/20 11:45 07/18/20 11:45 07/18/20 11:45 07/18/20 11:45 07/18/20 11:45 Temperature -Last 24 Hours Temperature 97.9 F Temperature 97.3 F Temperature 99.2 F Temperature 98.6 F Temperature 98.6 F Temperature 98.7 F Temperature 98.7 F Temperature 97.8 F - Labs CBC & Chem 7: 07/18/20 08:09 07/18/20 08:09 Labs: Abnormal lab results 07/17/20 07/17/20 07/17/20 Range/Units 12:15 16:14 21:49 Hgb (10.1-14.3) gm/dl Hct (30.3-42.9) % MCV (79-97) fl MCH (28-32) pg RDW (13.2-15.2) % Baker % (Auto) (0.0-7.3) % Eos % (Auto) (0.0-4.3) % Baker # (Auto) (0.0-0.8) K/mm3 Eos # (Auto) (0.0-0.4) K/mm3 Sodium (137-145) mmol/L Potassium (3.6-5.0) mmol/L Chloride (98-107) mmol/L BUN (7-17) mg/dL Creatinine (0.6-1.2) mg/dL Glucose (65-100) mg/dL POC Glucose 243 H 288 H 194 H (70-105) mg/dL Total Protein (6.3-8.2) g/dL Albumin (3.9-5) g/dL 07/18/20 07/18/20 07/18/20 Range/Units 07:46 08:09 08:09 Hgb 9.9 L (10.1-14.3) gm/dl Hct 30.2 L (30.3-42.9) % MCV 77 L (79-97) fl MCH 25 L (28-32) pg RDW 15.8 H (13.2-15.2) % Baker % (Auto) 12.5 H (0.0-7.3) % Eos % (Auto) 10.3 H (0.0-4.3) % Baker # (Auto) 1.0 H (0.0-0.8) K/mm3 Eos # (Auto) 0.8 H (0.0-0.4) K/mm3 Sodium 150 H (137-145) mmol/L Potassium 3.5 L (3.6-5.0) mmol/L Chloride 110.2 H (98-107) mmol/L BUN 26 H (7-17) mg/dL Creatinine 1.5 H (0.6-1.2) mg/dL Glucose 129 H (65-100) mg/dL POC Glucose 134 H (70-105) mg/dL Total Protein 6.1 L (6.3-8.2) g/dL Albumin 3.2 L (3.9-5) g/dL
[2020-07-18] MEDS: DOCUSATE SODIUM 100 MG CAP PO SCH ×2 (14:19→22:56)
[2020-07-18] MEDS: GABAPENTIN 300 MG CAP PO SCH ×3 (14:19→22:56)
[2020-07-18] MEDS: amLODIPine 5 MG TAB PO SCH (14:19)
[2020-07-18] MEDS: FAMOTIDINE 20 MG TAB PO SCH ×2 (14:19→22:56)
[2020-07-18] MEDS: ASPIRIN 81 MG TAB CHEW PO SCH (14:20)
[2020-07-18] MEDS: SENNOSIDES 8.6 MG TAB PO SCH ×2 (14:20→22:57)
[2020-07-18] MEDS: METOPROLOL TARTRATE 25 MG TAB PO SCH ×2 (14:20→22:56)
--- NOTE | 2020-07-18 14:51 | Post Anesthesia Evaluation ---
- Post Anesthesia Evaluation Patient Participated: Yes Airway Patent: Yes Stable Respiratory Function: Yes Nausea/Vomiting: No Temp > 96.8F: Yes Pain Manageable: Yes Adequeate Hydration: Yes Anesthesia Complications: No Block Receding Appropriately: Not Applicable Patient on Ventilator: No
--- NOTE | 2020-07-18 16:21 | Progress Note ---
Assessment and Plan - Patient Problems (1) Sepsis Current Visit: Yes Status: Acute Plan to address problem: Presented with fevers and tachycardia likely secondary to pyelonephritis Antibiotic therapy Trend CBC ID consulted 07/12 blood culture x2 NGTD 07/12 urine culture with GNR, speciated out to E. coli, antibiotics tailored to sensitivity (2) Pyelonephritis, acute Current Visit: Yes Status: Acute Plan to address problem: 07/12 CTA abdomen/pelvis without contrast: Atelectatic changes noted in the lung bases. Advanced right hydronephrosis with cortical thinning which is likely chronic, due to chronic UPJ obstruction with asymmetric right perinephric stranding. Cholelithiasis with no biliary dilation or gallbladder inflammation. Cecum and ascending colon are mildly distended with fluid with no intrinsic inflammation. Infectious disease consulted 07/12 urine analysis shows pyuria and leukocyte esterase 07/12 urine culture pending IV antibiotic therapy; 07/17 De-escalate cefepime to ceftriaxone by ID Trend CBC Per ID: When ready for discharge would discharge with Keflex 500 mg every 6 hours. Stop date for antibiotics 07/22/2020. If cystoscopy occurs after 07/22 ID recommends to continue antibiotics till 07/23 (3) Hydronephrosis, right Current Visit: Yes Status: Acute Plan to address problem: 07/12 CTA abdomen/pelvis without contrast: Advanced right hydronephrosis with cortical thinning which is likely chronic, due to chronic UPJ obstruction with asymmetric right perinephric stranding. Urology consulted 07/16 Nuclear med renal scan showed renal function 22.5% on right and 77.5% on left Per cardiology: Should cystoscopy/stent be warranted, pt is mod-high risk from a Cardiology perspective (RCRI Class IV, 3 points, 15.0% risk of MACE); however, there are no cardiac contraindications to intervention at this time. 07/18 s/p cystoscopy with stent placement (4) VAL (acute kidney injury) Current Visit: Yes Status: Acute Plan to address problem: Admit creatinine 2.5/42 07/13 cr/bun 3.3/62, 07/16 Cr 1.7/41, 07/17 1.6/30, 07/18 1.02/20 s/p 1500ml NS bolus in ED Trend BMP Avoid nephrotoxic medications Renally dose medications Strict intake and output Nephrology consult requested Secondary to VMN (5) NSTEMI (non-ST elevated myocardial infarction) Current Visit: Yes Status: Acute Plan to address problem: type II troponin leak in setting of VAL Trend CE (0.171 -> 0.134 -> 0.130) Patient denies any chest, jaw, upper back, shoulder, left arm pain, diaphoresis or current nausea Cardiology consulted Remote telemetry 07/12 ECG in the ED shows NSR 07/17 Lexiscan shows normal rest and stress myocardial perfusion, no significant ischemia, 1 no wall motion abnormality, gated SPECT, EF 62% Initiated on aspirin 81, statin, beta-emmanuel (6) Acute abdominal pain Current Visit: Yes Status: Acute Plan to address problem: Supportive care Analgesia therapy Secondary to pyelonephritis (7) Elevated d-dimer Current Visit: Yes Status: Acute Plan to address problem: Admit D dimer 5255 07/12 VQ scan shows low probability of a pulmonary embolism Trend D-dimerl (8) Hypokalemia Current Visit: Yes Status: Acute Plan to address problem: Admit potassium 3.4, 07/13 potassium 4.4 Repleted in the ED Trend BMP Replete as needed 07/16 K 3.5, repleted, 07/17 K 3.2, repleted -07/18 K 3.5 (9) Cholelithiasis Current Visit: Yes Status: Acute Qualifiers: Cholelithiasis location: gallbladder Cholecystitis presence: without cholecystitis Biliary obstruction: without biliary obstruction Qualified Code(s): K80.20 - Calculus of gallbladder without cholecystitis without obstruction Plan to address problem: 07/12 CT abdomen pelvis without contrast shows cholelithiasis without biliary duct dilation or gallbladder inflammation 07/12 abdominal ultrasound shows cholelithiasis (largest measuring 2 cm) with no gallbladder wall thickening or per cholecystic fluid. Bile ducts are normal with the common bile duct measuring 4 mm No acute intervention needed at this time (10) Diabetes mellitus Current Visit: Yes Status: Chronic Plan to address problem: 07/12 Hemoglobin A1c 6.7 SSI CC renal diet Accu-Cheks ACHS 07/17 restarted home Lantus (11) HTN (hypertension) Current Visit: Yes Status: Chronic Qualifiers: Hypertension type: essential hypertension Qualified Code(s): I10 - Essentia l (primary) hypertension Plan to address problem: Anti htn regimen: imdur, metoprolol, losartan, hydralazine As needed labetalol Blood pressure monitoring per protocol (12) CAD (coronary artery disease) Current Visit: Yes Status: Chronic Plan to address problem: Statin therapy (13) Hypernatremia Current Visit: Yes Status: Acute Plan to address problem: - 07/16 Na 146 - 07/17 148, mild at this time - 07/18 Na 150 - Trend BMP - Encouarge PO water intake (14) Hyperchloremia Current Visit: Yes Status: Acute Plan to address problem: -07/16 Chloride 105, 07/17 108.9, 07/18 110.2 - Trend BMP - No acidosis noted at this time (15) DVT prophylaxis Current Visit: Yes Status: Acute Plan to address problem: GI prophylaxis SCDs to bilateral lower extremities while in bed Subcu heparin History Interval history: This is a 64-year-old female with obesity, HTN, seizure, CVA x2 with residual right-sided weakness (2013,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 Work-up in the emergency department reveals VAL (Cr 2.5/BUN 42), pyelonephritis and cholelithiasis on CT scan, elevated D-dimer (5255), hypokalemia (3.4), elevated LDH (291) and CRP (3.36), urine analysis with leukocyte esterase and pyuria and elevated troponin at 0.171. ID, nephrology, urology, and cardiology are consulted. Patient continues to be hypernatremic, hyperchloremic and hypokalemic. Patient underwent a cystoscopy with stent placement today with urology. 07/12: COVID 19 PCR (-) 07/13: Slight increase in her creatinine to 3.3 therefore nephrology has been consulted. Cardiology was consulted for her elevated troponins. STATION OPERATOR spoke to her sister, Shi Corrigan over the phone and updated her on current treatments, echo 07/14: Urology consulted 07/15: Consulted IR and ordered NM renal scan per urologist recs 07/16: Cards clearance for cystoscopy 07/17: hypernatremic, hyperchloremic and hypokalemic. along with persistent hyperglycemia therefore her home Lantus was restarted. ID changed her abx. Hospitalist Physical - Constitutional Vitals: Temp Pulse Resp BP Pulse Ox 97.9 F 77 16 140/71 98 07/18/20 11:45 07/18/20 11:45 07/18/20 11:45 07/18/20 11:45 07/18/20 11:45 General appearance: Present: no acute distress, obese - EENT Eyes: Present: PERRL, EOM intact ENT: hearing intact, clear oral mucosa - Neck Neck: Present: supple, normal ROM - Respiratory Respiratory effort: normal Respiratory: bilateral: diminished - Cardiovascular Rhythm: regular Heart Sounds: Present: S1 & S2. Absent: systolic murmur, diastolic murmur - Extremities Extremities: no ischemia, pulses intact, pulses symmetrical, No edema, normal temperature, normal color, Full ROM - Abdominal General gastrointestinal: soft, non-tender, non-distended, normal bowel sounds - Integumentary Integumentary: Present: clear, warm, dry - Psychiatric Psychiatric: cooperative - Neurologic Neurologic: CNII-XII intact, no focal deficits, moves all extremities HEART Score - HEART Score EKG: Normal Age: 45-65 Risk factors: 1-2 risk factors Troponin: Troponin T 0.104 ng/mL (0.00-0.029) H* 07/14/20 05:55 Troponin: 1-3x normal limit Results - Labs CBC & Chem 7: 07/18/20 08:09 07/18/20 08:09 Labs: Laboratory Last Values WBC 8.0 K/mm3 (4.5-11.0) 07/18/20 08:09 RBC 3.92 M/mm3 (3.65-5.03) 07/18/20 08:09 Hgb 9.9 gm/dl (10.1-14.3) L 07/18/20 08:09 Hct 30.2 % (30.3-42.9) L 07/18/20 08:09 MCV 77 fl (79-97) L 07/18/20 08:09 MCH 25 pg (28-32) L 07/18/20 08:09 MCHC 33 % (30-34) 07/18/20 08:09 RDW 15.8 % (13.2-15.2) H 07/18/20 08:09 Plt Count 264 K/mm3 (140-440) 07/18/20 08:09 Lymph % (Auto) 26.1 % (13.4-35.0) 07/18/20 08:09 Jerauld % (Auto) 12.5 % (0.0-7.3) H 07/18/20 08:09 Eos % (Auto) 10.3 % (0.0-4.3) H 07/18/20 08:09 Baso % (Auto) 0.5 % (0.0-1.8) 07/18/20 08:09 Lymph # (Auto) 2.1 K/mm3 (1.2-5.4) 07/18/20 08:09 Jerauld # (Auto) 1.0 K/mm3 (0.0-0.8) H 07/18/20 08:09 Eos # (Auto) 0.8 K/mm3 (0.0-0.4) H 07/18/20 08:09 Baso # (Auto) 0.0 K/mm3 (0.0-0.1) 07/18/20 08:09 Seg Neutrophils % 50.6 % (40.0-70.0) 07/18/20 08:09 Seg Neutrophils # 4.1 K/mm3 (1.8-7.7) 07/18/20 08:09 PT 16.3 Sec. (12.2-14.9) H 07/12/20 03:38 INR 1.29 (0.87-1.13) H 07/12/20 03:38 D-Dimer 1270.64 ng/mlDDU (0-234) H 07/14/20 10:38 Sodium 150 mmol/L (137-145) H 07/18/20 08:09 Potassium 3.5 mmol/L (3.6-5.0) L 07/18/20 08:09 Chloride 110.2 mmol/L (98-107) H 07/18/20 08:09 Carbon Dioxide 28 mmol/L (22-30) 07/18/20 08:09 Anion Gap 15 mmol/L 07/18/20 08:09 BUN 26 mg/dL (7-17) H 07/18/20 08:09 Creatinine 1.5 mg/dL (0.6-1.2) H 07/18/20 08:09 Estimated GFR 43 ml/min 07/18/20 08:09 BUN/Creatinine Ratio 17 % 07/18/20 08:09 Glucose 129 mg/dL (65-100) H 07/18/20 08:09 POC Glucose 134 mg/dL (70-105) H 07/18/20 07:46 Hemoglobin A1c 6.7 % (4-6) H 07/12/20 16:44 Lactic Acid 1.60 mmol/L (0.7-2.0) 07/12/20 03:38 Calcium 9.6 mg/dL (8.4-10.2) 07/18/20 08:09 Magnesium 1.80 mg/dL (1.7-2.3) 07/17/20 13:47 Ferritin 139.8 ng/mL (10.0-200.0) 07/12/20 03:38 Total Bilirubin 0.20 mg/dL (0.1-1.2) 07/18/20 08:09 Direct Bilirubin < 0.2 mg/dL (0-0.2) 07/12/20 03:38 Indirect Bilirubin 0.4 mg/dL 07/12/20 03:38 AST 20 units/L (5-40) 07/18/20 08:09 ALT 24 units/L (7-56) 07/18/20 08:09 Alkaline Phosphatase 61 units/L (35-129) 07/18/20 08:09 Lactate Dehydrogenase 290 units/L (91-180) H 07/12/20 03:38 Lactate Dehydrogenase 291 units/L (91-180) H 07/12/20 03:38 Total Creatine Kinase 787 units/L (30-135) H 07/12/20 19:52 CK-MB (CK-2) 8.8 ng/mL (0.0-4.0) H 07/12/20 19:52 CK-MB (CK-2) Rel Index 1.1 (0-4) 07/12/20 19:52 Troponin T 0.104 ng/mL (0.00-0.029) H* 07/14/20 05:55 C-Reactive Protein 33.50 mg/dL (0.00-1.30) H 07/12/20 03:38 C-Reactive Protein 33.60 mg/dL (0.00-1.30) H 07/12/20 03:38 Total Protein 6.1 g/dL (6.3-8.2) L 07/18/20 08:09 Albumin 3.2 g/dL (3.9-5) L 07/18/20 08:09 Albumin/Globulin Ratio 1.1 % 07/18/20 08:09 Triglycerides 115 mg/dL (2-149) 07/12/20 03:38 Cholesterol 111 mg/dL (50-199) 07/12/20 03:38 LDL Cholesterol Direct 33 mg/dL (50-130) L 07/12/20 03:38 HDL Cholesterol 54 mg/dL (40-59) 07/12/20 03:38 Cholesterol/HDL Ratio 2.05 % 07/12/20 03:38 Lipase 28 units/L (13-60) 07/12/20 03:38 Procalcitonin 49.70 ng/mL (<0.15) 07/12/20 11:23 Urine Color Red (Yellow) 07/12/20 04:08 Urine Turbidity Turbid (Clear) 07/12/20 04:08 Urine pH 5.0 (5.0-7.0) 07/12/20 04:08 Ur Specific [place] 1.017 (1.003-1.030) 07/12/20 04:08 Urine Protein 100 mg/dl mg/dL (Negative) 07/12/20 04:08 Urine Glucose (UA) Neg mg/dL (Negative) 07/12/20 04:08 Urine Ketones Neg mg/dL (Negative) 07/12/20 04:08 Urine Blood Lg (Negative) 07/12/20 04:08 Urine Nitrite Neg (Negative) 07/12/20 04:08 Urine Bilirubin Neg (Negative) 07/12/20 04:08 Urine Urobilinogen < 2.0 mg/dL (<2.0) 07/12/20 04:08 Ur Leukocyte Esterase Mod (Negative) 07/12/20 04:08 Urine WBC (Auto) > 182.0 /HPF (0.0-6.0) H 07/12/20 04:08 Urine RBC (Auto) > 182.0 /HPF (0.0-6.0) 07/12/20 04:08 U Epithel Cells (Auto) 16.0 /HPF (0-13.0) H 07/12/20 04:08 Urine Bacteria (Auto) 3+ /HPF (Negative) 07/12/20 04:08 Urine WBC Clumps 3+ /HPF 07/12/20 04:08 Urine Sperm 2+ /HPF (STATION OPERATOR) 07/12/20 04:08 Coronavirus (PCR) Negative (Negative) 07/12/20 10:51 - Diagnostic Impressions Diagnostic Impressions: Echocardiogram 07/13/20 09:15 Transthoracic Echocardiogram Indication: elevated trop BP: 154/80 HR: 73 Conclusions *The left ventricular chamber size is normal. *Mild to moderate concentric left ventricular hypertrophy is observed. *The estimated ejection fraction is 55-60%. *Abnormal left ventricular diastolic filling is observed, consistent with impaired relaxation. *The aortic valve structure is normal. *There is trace of aortic regurgitation. *The right ventricular systolic pressure is calculated at 37 mmHg. Findings Left Ventricle: The left ventricular chamber size is normal. Mild to moderate concentric left ventricular hypertrophy is observed. Global left ventricular wall motion and contractility are within normal limits. Global left ventricular systolic function is normal. The estimated ejection fraction is 55-60%. Abnormal left ventricular diastolic function is observed. Abnormal left ventricular diastolic filling is observed, consistent with impaired relaxation. Left Atrium: The left atrium is normal in size with no visual thrombus identified. Right Ventricle: The right ventricular cavity size is normal. The right ventricular global systolic function is normal. Right Atrium: The right atrium is mildly dilated. The interatrial septum appears normal. There is evidence of an atrial septal aneurysm. Aortic Valve: The aortic valve structure is normal. There is trace of aortic regurgitation. There is no evidence of aortic stenosis. Mitral Valve: The mitral valve leaflets appear normal. There is no evidence of mitral regurgitation. There is no evidence of mitral stenosis. Tricuspid Valve: The tricuspid valve leaflets are normal. There is mild tricuspid regurgitation. The right ventricular systolic pressure is calculated at 37 mmHg. There is no tricuspid stenosis. Pulmonic Valve: The pulmonic valve appears normal. There is mild pulmonic regurgitation. There is no pulmonic stenosis. Pericardium: There is no pericardial effusion. Aorta: There is no dilatation of the ascending aorta. There is no dilatation of the aortic arch. There is no dilatation of the descending thoracic aorta. There is no dilatation of the aortic root. Venous: The inferior vena cava appears normal in size. Measurements Chambers 2D Name Value Normal Range IVSd (2D) 1.55 cm (0.6 - 1.1) LVPWd (2D) 1.53 cm (0.6 - 1.1) LVIDd (2D) 4.54 cm (3.7 - 5.6) LVIDs (2D) 2.98 cm (2 - 3.8) LV FS (2D) 34.37 % - EF Teichholz (2D) 63.53 % - Ao root diameter (2D) 3.26 cm (2 - 3.7) Volumes/Mass Name Value Normal Range LA ESV SP 4CH (A/L) 61.16 ml - LA ESV SP 2CH (A/L) 63.94 ml - LA ESV BP (A/L) 65.9 ml - LA ESV SP 4CH (MOD) 57.02 ml - LA ESV SP 2CH (MOD) 62.44 ml - LA ESV BP (MOD) 62.5 ml - LA ESV BP (MOD) index 28.8 ml/m2 - LV EDV SP 4CH (MOD) 150.49 ml - LV ESV SP 4CH (MOD) 64.14 ml - EF SP 4CH (MOD) 57.38 % - LV EDV SP 2CH (MOD) 111.1 ml - LV ESV SP 2CH (MOD) 44.83 ml - EF SP 2CH (MOD) 59.65 % - LV EDV BP 130.22 ml - LV ESV BP 54.23 ml - BP EF (MOD) 58.35 % - Diastolic/Systolic Function Name Value Normal Range MV E-wave Vmax 0.64 m/sec - MV deceleration time 202.51 msec - MV A-wave Vmax 0.92 m/sec - MV E:A ratio 0.69 ratio - Aortic Valve Name Value Normal Range AV Vmax 1.36 m/sec - AV VTI 23.86 cm - AV peak gradient 7.35 mmHg - AV mean gradient 3.45 mmHg - LVOT diameter 2.18 cm - LVOT Vmax 1.18 m/sec - LVOT VTI 25.22 cm - LVOT peak gradient 5.55 mmHg - LVOT mean gradient 3.24 mmHg - SV LVOT 93.69 ml - DEBBIE (continuity Vmax) 3.23 cm2 - DEBBIE (continuity VTI) 3.93 cm2 - Ascending Ao 3.07 cm - Tricuspid Valve Name Value Normal Range TR Vmax 2.92 m/sec - TR peak gradient 34 mmHg - RAP 3 mmHg - RVSP 37 mmHg - Pulmonic Valve/Qp:Qs Name Value Normal Range PV Vmax 1.09 m/sec - PV peak gradient 4.71 mmHg - ME end-diastolic Vmax 1.35 m/sec - PV acceleration time 68.51 msec - Tejeda/IV: Voiding Method External Female Catheter IV Catheter Type [Right INT / Saline Lock Forearm] IV Catheter Type [Left INT / Saline Lock Antecubital] Active Medications - Current Medications Current Medications: Generic Name Dose Route Start Last Admin Trade Name Freq PRN Reason Stop Dose Admin Acetaminophen 650 mg 07/12/20 11:00 07/17/20 10:27 Tylenol PO 650 mg Q4H PRN Administration Pain MILD(1-3)/Fever >100.5/FERNANDEZ Amlodipine Besylate 5 mg 07/18/20 10:00 07/18/20 14:19 Amlodipine PO 5 mg QDAY TIM Administration Aspirin 81 mg 07/14/20 10:00 07/18/20 14:20 Baby Aspirin PO 81 mg QDAY TIM Administration Atorvastatin Calcium 80 mg 07/16/20 22:00 07/17/20 23:10 Lipitor PO 80 mg QHS TIM Administration Dextrose 50 ml 07/12/20 11:45 D50w (25gm) Syringe IV Q30MIN PRN Hypoglycemia Protocol Docusate Sodium 100 mg 07/12/20 22:00 07/18/20 14:19 Colace PO 100 mg BID TIM Administration Famotidine 20 mg 07/18/20 10:00 07/18/20 14:19 Pepcid PO 20 mg BID TIM Administration Gabapentin 300 mg 07/13/20 08:00 07/18/20 14:28 Gabapentin PO 300 mg TID TIM Administration Heparin Sodium (Porcine) 5,000 unit 07/12/20 14:00 07/18/20 14:20 Heparin SUB-Q 5,000 unit Q8HR TIM Administration Hydralazine HCl 50 mg 07/17/20 11:30 07/18/20 14:20 Apresoline PO 50 mg Q8HR TIM Administration Hydromorphone HCl 0.25 mg 07/18/20 10:25 Dilaudid IV 07/18/20 23:00 Q10MIN PRN Pain, Moderate (4-6) Ceftriaxone Sodium 2 gm in 100 mls @ 200 mls/hr 07/17/20 15:00 07/18/20 10:06 Rocephin/Ns 2 Gm/100 Ml IV 07/22/20 10:29 200 mls/hr Q24HR TIM Administration Protocol Insulin Glargine 32 units 07/17/20 22:00 07/17/20 23:13 Lantus SUB-Q 32 units HS TIM Administration Insulin Human Lispro 0 unit 07/12/20 16:30 07/18/20 11:47 Humalog SUB-Q Not Given ACHS [facility] Protocol Isosorbide Mononitrate 60 mg 07/18/20 10:00 07/18/20 14:19 Imdur PO 60 mg QDAY TIM Administration Metoprolol Tartrate 25 mg 07/16/20 22:00 07/18/20 14:20 Metoprolol PO 25 mg BID TIM Administration Ondansetron HCl 4 mg 07/12/20 11:00 Zofran IV Q8H PRN Nausea And Vomiting Oxycodone/Acetaminophen 1 tab 07/12/20 11:00 07/18/20 05:21 Percocet 5/325 PO 1 tab Q6H PRN Administration Pain, Moderate (4-6) Senna 8.6 mg 07/12/20 22:00 07/18/20 14:20 Senokot PO 8.6 mg Q12HR TIM Administration Sodium Chloride 10 ml 07/12/20 22:00 07/18/20 14:21 Sodium Chloride Flush Syringe 10 Ml IV 10 ml BID TIM Administration Sodium Chloride 10 ml 07/12/20 10:31 Sodium Chloride Flush Syringe 10 Ml IV PRN PRN LINE FLUSH
[2020-07-18] MEDS ORDERED: POTASSIUM CHLORIDE ER 20 MEQ TAB PO NR (16:29)
[2020-07-18] MEDS: INSULIN GLARGINE 100 UNITS/ML SUB-Q SCH (22:55)
--- NOTE | 2020-07-18 23:38 | Operative Report ---
PREOPERATIVE DIAGNOSES: Right hydronephrosis, pyelonephritis. POSTOPERATIVE DIAGNOSES: Right hydronephrosis, pyelonephritis. PROCEDURES: Cystoscopy, bilateral retrograde pyelograms, right double-J stent placement (6-Mauritian 24 cm with an external string). SURGEON: Santosh Weinstein MD. ANESTHESIA: General. ESTIMATED BLOOD LOSS: Minimal. FLUIDS: Crystalloid. COMPLICATIONS: No complications. INDICATIONS: This is a 64-year-old female with history of obesity, hypertension, cerebrovascular accident with right-sided weakness, is admitted for pyelonephritis. CT of abdomen and pelvis revealed right hydronephrosis. Nuclear scan revealed a 22% function of the right kidney. Further discussion with the patient, she was seen by another urologist at [facility] (Dr. Milana Evans). She underwent cystoscopy, stent placement in 2014 as well. Due to concern for infection, she presents now for surgical intervention. DESCRIPTION OF PROCEDURE: The patient was taken to the operative suite, placed in a supine position. After adequate general anesthesia, placed in a dorsal lithotomy position, prepped and draped in a sterile fashion. Pancystourethroscopy was performed with a 22-Mauritian Storz cystoscope, normal vaginal area and urethra, no signs of stenosis. Her bladder, no tumors or stones were noted. Both ureteral orifices in normal position. Bilateral retrograde pyelograms were obtained with an 8-Mauritian [place] catheter and 8 mL of contrast. No filling defects could be appreciated. There was some narrowing of the left proximal ureter with fullness of the calices, right side significant hydronephrosis and narrowing. A 0.035 Glidewire was placed in the right collecting system. A 6, 24 stent was placed under fluoroscopic guidance and an external string was left indwelling. The patient tolerated the procedure well. She was extubated and taken to recovery room. JOB# [id number] Miriam/MELONY
[2020-07-19] MEDS: HEPARIN 5,000 UNIT/1 ML VIAL SUB-Q SCH (06:02)
[2020-07-19] MEDS: hydrALAZINE 25 MG TAB PO SCH (06:03)
[2020-07-19 08:21] LABS: Alanine Aminotransferase 31 units/L (7-56); Albumin 2.9 g/dL (3.9-5); BUN/Creatinine Ratio 17; Blood Urea Nitrogen 34 mg/dL (7-17); Calcium 8.9 mg/dL (8.4-10.2); Hemolysis Index 9
[2020-07-19] MEDS: cefTRIAXone/NS 2 GM/100 ML 2 GM/100 ML BAG IV SCH (09:53)
[2020-07-19] MEDS: METOPROLOL TARTRATE 25 MG TAB PO SCH (09:54)
[2020-07-19] MEDS: amLODIPine 5 MG TAB PO SCH (09:54)
[2020-07-19] MEDS: FAMOTIDINE 20 MG TAB PO SCH (09:54)
[2020-07-19] MEDS: GABAPENTIN 300 MG CAP PO SCH (09:54)
[2020-07-19] MEDS: ASPIRIN 81 MG TAB CHEW PO SCH (09:55)
[2020-07-19] MEDS: oxyCODONE /ACETAMINOPHEN 5-325MG TAB PO PRN (09:55)
[2020-07-19] MEDS: INSULIN LISPRO 100 UNIT/ML VIAL 3 mL SUB-Q SCH (09:55)
[2020-07-19] MEDS: DOCUSATE SODIUM 100 MG CAP PO SCH (09:56)
--- NOTE | 2020-07-19 11:09 | Discharge Summary ---
Providers - Providers Date of Admission: 07/12/20 08:41 Date of discharge: 07/19/20 Attending physician: DESIRE BOWMAN 07/12/20 10:31 Consult to Physician [CONS] Routine Comment: Consulting Provider: TONY FLORES Physician Instructions: Reason For Exam: covid pui 07/12/20 18:10 Consult to Physician [CONS] Routine Comment: Consulting Provider: MARIAH MORENO Physician Instructions: Reason For Exam: elevated troponim 07/12/20 18:11 Consult to Physician [CONS] Urgent Comment: Consulting Provider: MARIAH MORENO Physician Instructions: Reason For Exam: elevated troponim 07/13/20 16:06 Consult to Physician [CONS] Routine Comment: Consulting Provider: QUYEN ANTHONY Physician Instructions: Reason For Exam: VAL 07/16/20 09:38 Consult to Physician [CONS] Urgent Comment: Consulting Provider: DEX THORPE Physician Instructions: Reason For Exam: hydro with pyelo 07/17/20 15:07 Physical Therapy Evaluation and Treat [CONS] Routine Comment: Reason For Exam: Eval and treatment 07/19/20 10:12 Occupational Therapy Evaluate and Treat [CONS] Routine Comment: Reason For Exam: ADL Evaluation Primary care physician: RUIZ SIMMONS Hospitalization Condition: Stable Pertinent studies: 07/12 abd US: Cholelithiasis. Advanced right hydronephrosis. 07/12 CT abd/pelvis w/o con: Cholelithiasis. No biliary dilatation or gallbladder inflammation. Given the diffuse right renal cortical thinning, right hydronephrosis is likely chronic. This is likely due to chronic UPJ obstruction. CT without contrast is relatively insensitive for pyelonephritis; however, there is asymmetric right perinephric stranding which could be seen in setting of pyelonephritis, correlate clinically. The cecum and ascending colon are mildly distended with fluid. No intrinsic inflammation is seen. This is of uncertain significance. 07/12 V/Q scan: There is homogeneous distribution of the radiotracer bilaterally. No perfusion defect consistent with pulmonary embolus is detected on nuclear medicine study. 07/15 TTE shows mild-mod LVH, Estimated EF 55-60%, impaired relaxation, trace AR, RVSP 37 mmhg. 07/15 neck xray: Prevertebral soft tissues are unremarkable. The epiglottis is unremarkable. The airway appears patent. No radiopaque foreign bodies are seen 07/15 cspine xray: There is no fracture, subluxation, or other acute radiographic abnormality of the cervical spine. There is mild discogenic degenerative change throughout the cervical spine. There is mild disc space narrowing and anterior osteophyte formation. 07/16 NM renal scan: split function measures 77.5% left kidney and 22.5% right kidney. 07/17 Lexiscan shows normal rest and stress myocardial perfusion, no significant ischemia, 1 no wall motion abnormality, gated SPECT, EF 62% 07/18 retrograde urography: 6 images of the abdomen were submitted for documentation purposes with radiology involvement. Bilateral retrograde pyelogram performed with right-sided double-J ureteral stent placement. There is dilatation of the left pelvicalyceal system. Approximately 10 mL of Omnipaque 300 was utilized for this exam. Please refer to the operative note for complete details. 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 Work-up in the emergency department reveals VAL (Cr 2.5/BUN 42), pyelonephritis and cholelithiasis on CT scan, elevated D-dimer (5255), hypokalemia (3.4), elevated LDH (291) and CRP (3.36), urine analysis with leukocyte esterase and pyuria and elevated troponin at 0.171. ID, nephrology, urology, and cardiology are consulted. On 07/12 her COVID 19 PCR was negative. On 07/18 she received her cystoscopy with stent placement. She will be discharged with abx therpy, HHPT and OT. She will need to follow up with her PCP and followup with urology within 2 weeks of discharge. She will need to follow up with orthopaedics out patient for her arm pain. (1) Sepsis Current Visit: Yes Status: Acute Plan to address problem: Presented with fevers and tachycardia likely secondary to pyelonephritis Antibiotic therapy, DC with PO abx ID consulted 07/12 blood culture x2 NGTD 07/12 urine culture with GNR, speciate out to E. coli, antibiotics tailored to sensitivity (2) Pyelonephritis, acute Current Visit: Yes Status: Acute Plan to address problem: 07/12 CTA abdomen/pelvis without contrast: Atelectatic changes noted in the lung bases. Advanced right hydronephrosis with cortical thinning which is likely chronic, due to chronic UPJ obstruction with asymmetric right perinephric stranding. Cholelithiasis with no biliary dilation or gallbladder inflammation. Cecum and ascending colon are mildly distended with fluid with no intrinsic inflammation. Infectious disease consulted 07/12 urine analysis shows pyuria and leukocyte esterase 07/12 urine culture pending IV antibiotic therapy; 07/17 De-escalate cefepime to ceftriaxone by ID Per ID: When ready for discharge would discharge with Keflex 500 mg every 6 hours. Stop date for antibiotics 07/22/2020. If cystoscopy occurs after 07/22 ID recommends to continue antibiotics till 07/23 (3) Hydronephrosis, right Current Visit: Yes Status: Acute Plan to address problem: 07/12 CTA abdomen/pelvis without contrast: Advanced right hydronephrosis with cortical thinning which is likely chronic, due to chronic UPJ obstruction with asymmetric right perinephric stranding. Urology consulted 07/16 Nuclear med renal scan showed renal function 22.5% on right and 77.5% on left Per cardiology: Should cystoscopy/stent be warranted, pt is mod-high risk from a Cardiology perspective (RCRI Class IV, 3 points, 15.0% risk of MACE); however, there are no cardiac contraindications to intervention at this time. 07/18 s/p cystoscopy with stent placement (4) VAL (acute kidney injury) Current Visit: Yes Status: Acute Plan to address problem: Admit creatinine 2.5/42 07/13 cr/bun 3.3/62, 07/16 Cr 1.7/41, 07/17 1.6/30, 07/18 1.5/, 07/19 2/34 s/p 1500ml NS bolus in ED Avoid nephrotoxic medications follow up with nephrology and PCP Secondary to VMN (5) NSTEMI (non-ST elevated myocardial infarction) Current Visit: Yes Status: Acute Plan to address problem: type II troponin leak in setting of VAL Trend CE (0.171 -> 0.134 -> 0.130) Patient denies any chest, jaw, upper back, shoulder, left arm pain, diaphoresis or current nausea Cardiology consulted 07/12 ECG in the ED shows NSR -07/15 TTE shows [id number] LVH, Estimated EF 55-60%, impaired relaxation, trace AR, RVSP 37 mmhg. 07/17 Lexiscan shows normal rest and stress myocardial perfusion, no significant ischemia, 1 no wall motion abnormality, gated SPECT, EF 62% Continue aspirin 81, statin, beta-emmanuel (6) Acute abdominal pain Current Visit: Yes Status: resolved Plan to address problem: Supportive care Analgesia therapy Secondary to pyelonephritis (7) Elevated d-dimer Current Visit: Yes Status: Acute Plan to address problem: Admit D dimer 5255 07/12 VQ scan shows low probability of a pulmonary embolism (8) Hypokalemia Current Visit: Yes Status: resolved Plan to address problem: Admit potassium 3.4, 07/13 potassium 4.4 Repleted in the ED Trend BMP Replete as needed 07/16 K 3.5, repleted, 07/17 K 3.2, repleted -07/18 K 3.5m DC K 4.4 (9) Cholelithiasis Current Visit: Yes Status: Acute Qualifiers: Cholelithiasis location: gallbladder Cholecystitis presence: without cholecystitis Biliary obstruction: without biliary obstruction Qualified Code(s): K80.20 - Calculus of gallbladder without cholecystitis without obstruction Plan to address problem: 07/12 CT abdomen pelvis without contrast shows cholelithiasis without biliary duct dilation or gallbladder inflammation 07/12 abdominal ultrasound shows cholelithiasis (largest measuring 2 cm) with no gallbladder wall thickening or per cholecystic fluid. Bile ducts are normal with the common bile duct measuring 4 mm No acute intervention needed at this time (10) Diabetes mellitus Current Visit: Yes Status: Chronic Plan to address problem: 07/12 Hemoglobin A1c 6.7 continue CC renal diet Accu-Cheks per pcp instructions 07/17 restarted home Lantus, continue (11) HTN (hypertension) Current Visit: Yes Status: Chronic Qualifiers: Hypertension type: essential hypertension Qualified Code(s): I10 - Essential (primary) hypertension Plan to address problem: Anti htn regimen: imdur, metoprolol, losartan, hydralazine Blood pressure monitoring per PCP instructions (12) CAD (coronary artery disease) Current Visit: Yes Status: Chronic Plan to address problem: Statin therapy (13) Hypernatremia Current Visit: Yes Status: resolved Plan to address problem: - 07/16 Na 146 - 07/17 148, mild at this time - 07/18 Na 150, DC Na 143 - Encouarge PO water intake (14) Hyperchloremia Current Visit: Yes Status: resolved Plan to address problem: -07/16 Chloride 105, 07/17 108.9, 07/18 110.2, DC 106.4 Disposition: DC-01 TO HOME OR SELFCARE Time spent for discharge: 35 Core Measure Documentation - Palliative Care Palliative Care/ Comfort Measures: Not Applicable - Core Measures Any of the following diagnoses?: history only Exam - Constitutional Vitals: Temp Pulse Resp BP Pulse Ox 98.3 F 62 18 120/52 95 07/18/20 23:00 07/18/20 23:00 07/18/20 16:19 07/18/20 23:00 07/18/20 16:19 General appearance: Present: no acute distress - EENT Eyes: Present: PERRL, EOM intact ENT: hearing intact, clear oral mucosa - Neck Neck: Present: supple, normal ROM - Respiratory Respiratory effort: normal Respiratory: bilateral: CTA - Cardiovascular Rhythm: regular Heart Sounds: Present: S1 & S2. Absent: systolic murmur, diastolic murmur - Extremities Extremities: no ischemia, pulses intact, pulses symmetrical, No edema, normal temperature, normal color, Full ROM Peripheral Pulses: within normal limits - Abdominal General gastrointestinal: Present: soft, non-tender, non-distended, normal bowel sounds - Integumentary Integumentary: Present: clear, warm, dry - Musculoskeletal Musculoskeletal: strength equal bilaterally - Psychiatric Psychiatric: cooperative - Neurologic Neurologic: CNII-XII intact, no focal deficits, moves all extremities - Allied Health Allied health notes reviewed: nursing, social work, case management Plan Activity: up only with assistance Diet: low cholesterol, low salt, diabetic, renal Wound: per your surgeon's advice Special Instructions: record daily weights, record daily BP diary, record blood sugar diary, physical therapy, occupational therapy Additional Instructions: Present to your nearest ED or PCP if you experiencing worsening symptoms. Followup with your PCP, director peoplesoft and urology within 1-2 weeks of dischage. You will be discharged with HHPT and OT and antiobiotic therapy to complete your course. Follow up with ortho for your arm pain. Follow up with: QYUEN ANTHONY MD [Staff Physician] - 7 Days LAURA GARAY MD [Staff Physician] - 7 Days RUIZ SIMMONS MD [Primary Care Provider] - 3-5 Days DANIELE WEBB MD [Staff Physician] - 7 Days Prescriptions: AtorvaSTATin [Lipitor] 80 mg PO QHS #30 tablet amLODIPine 5 mg PO QDAY #30 tablet hydrALAZINE [Apresoline TAB] 50 mg PO Q8HR #240 tablet ISOSORBIDE MONOnitrate [Imdur ER] 60 mg PO QDAY #30 tablet cephALEXin [Keflex] 500 mg PO Q6HR #12 capsule Metoprolol [Lopressor TAB] 25 mg PO BID #60 tablet
[2020-07-19 12:52] VITALS: BP 145/62
--- NOTE | 2020-07-19 13:26 | Progress Note ---
Assessment and Plan Cultures: Blood culture 07/12/2020 E. coli resistant to fluoroquinolones. COVID-19 negative A/P: 64-year-old female past medical history obesity, hypertension, CVA with residual right-sided weakness, NE, diabetes admitted with sepsis likely secondary to pyelonephritis #Acute sepsis: Present with fevers and tachycardia likely secondary to pyelonephritis. Fevers resolved. #Right pyelonephritis: Suspicious on CT with significant pyuria on urinalysis. #Abdominal pain: Questionable passed gallstone given cholelithiasis without inflammation. #CKD: Renally adjust antibiotics Recs: -Continue ceftriaxone. -When ready for discharge would discharge with Keflex 500 mg every 6 hours. Stop date for antibiotics 07/22/2020. Thank you for the consult, we will continue to follow. Sabas Macias MD O: [phone] F: [phone] Subjective Date of service: 07/19/20 Principal diagnosis: NSTEMI Type 2 Interval history: Afebrile, normal white count. No changes today. Objective - Exam Narrative Exam: Physical Exam: Constitutional: Alert, cooperative. No acute distress Head, Ears, Nose: Normocephalic, atraumatic. External ears, nose normal Eyes: Conjunctivae/corneas clear. No icterus. No ptosis. Neck: Supple, no meningeal signs Oral: dentition fair, no thrush Cardiovascular: S1, S2 normal. Respiratory: Good air entry, clear to auscultation bilaterally GI: Soft, non-tender; bowel sounds normal. No peritoneal signs. Musculoskeletal: No pedal edema, no cyanosis. Skin: No rash or abscess Hem/Lymphatic: No palpable cervical or supraclavicular nodes. No lymphangitis Psych: Mood ok. Affect normal Neurological: Awake, alert, oriented. No gross abnormality - Constitutional Vitals: Vital Signs Temp Pulse Resp BP Pulse Ox 99.0 F 65 20 145/62 92 07/19/20 11:32 07/19/20 11:32 07/19/20 11:32 07/19/20 11:32 07/19/20 11:32 Temperature -Last 24 Hours Temperature 99.0 F Temperature 98.2 F Temperature 98.3 F Temperature 98.5 F - Labs CBC & Chem 7: 07/18/20 08:09 07/19/20 07:48 Labs: Abnormal lab results 10/21/20 10/21/20 10/22/20 Range/Units 16:33 22:40 07:48 BUN 34 H (7-17) mg/dL Creatinine 2.0 H (0.6-1.2) mg/dL Glucose 203 H (65-100) mg/dL POC Glucose 232 H 222 H (70-105) mg/dL Total Protein 6.2 L (6.3-8.2) g/dL Albumin 2.9 L (3.9-5) g/dL 07/19/20 07/19/20 Range/Units 08:19 12:50 BUN (7-17) mg/dL Creatinine (0.6-1.2) mg/dL Glucose (65-100) mg/dL POC Glucose 187 H 199 H (70-105) mg/dL Total Protein (6.3-8.2) g/dL Albumin (3.9-5) g/dL
[2020-07-20] MEDS ORDERED: FAMOTIDINE 20 MG TAB PO SCH (10:00)
== END 2020-07-19 15:37 | disposition home health service (06) | DRG 853 ==
LOC: ED 22:43 → OBSVTOIN 07-12 08:41 → 3A 07-12 08:41 → UNDODISOB 07-12 10:04
PROVIDERS: ADMIT Hospitalist; ATTEND Internal Medicine
PROC: 5A09357 Assistance with Respiratory Ventilation, Less than 24 Consecutive Hours, Continuous Positive Airway Pressure (ICD-10-PCS; 2020-07-13)
PROC: 5A09357 Assistance with Respiratory Ventilation, Less than 24 Consecutive Hours, Continuous Positive Airway Pressure (ICD-10-PCS; 2020-07-14)
PROC: 5A09357 Assistance with Respiratory Ventilation, Less than 24 Consecutive Hours, Continuous Positive Airway Pressure (ICD-10-PCS; 2020-07-15)
PROC: 5A09357 Assistance with Respiratory Ventilation, Less than 24 Consecutive Hours, Continuous Positive Airway Pressure (ICD-10-PCS; 2020-07-16)
PROC: 0T768DZ Dilation of Right Ureter with Intraluminal Device, Via Natural or Artificial Opening Endoscopic (ICD-10-PCS; principal; 2020-07-18)
PROC: BT141ZZ Fluoroscopy of Kidneys, Ureters and Bladder using Low Osmolar Contrast (ICD-10-PCS; 2020-07-18)
PROC: 5A09357 Assistance with Respiratory Ventilation, Less than 24 Consecutive Hours, Continuous Positive Airway Pressure (ICD-10-PCS; 2020-07-19)
DX: A41.9 Sepsis, unspecified organism (principal); I21.A1 Myocardial infarction type 2; N17.0 Acute kidney failure with tubular necrosis; Z68.41 Body mass index [BMI] 40.0-44.9, adult; I69.351 Hemiplegia and hemiparesis following cerebral infarction affecting right dominant side; N13.6 Pyonephrosis; E87.6 Hypokalemia; Z20.828 Contact with and (suspected) exposure to other viral communicable diseases; E66.9 Obesity, unspecified; I12.9 Hypertensive chronic kidney disease with stage 1 through stage 4 chronic kidney disease, or unspecified chronic kidney disease; N18.9 Chronic kidney disease, unspecified; E11.22 Type 2 diabetes mellitus with diabetic chronic kidney disease; K80.20 Calculus of gallbladder without cholecystitis without obstruction; I25.10 Atherosclerotic heart disease of native coronary artery without angina pectoris; G40.909 Epilepsy, unspecified, not intractable, without status epilepticus; I25.2 Old myocardial infarction; Z79.82 Long term (current) use of aspirin; Z79.4 Long term (current) use of insulin; Z79.899 Other long term (current) drug therapy; Z82.49 Family history of ischemic heart disease and other diseases of the circulatory system; Z71.3 Dietary counseling and surveillance
CPT/HCPCS: 36415; 70360; 71045; 72040; 74176; 74420; 76705; 78452; 78580; 78707; 80048; 80053; 80061; 80076; 81001; 82140; 82550; 82553; 82728; 82947; 82962; 83036; 83615; 83690; 83735; 84145; 84484; 85025; 85027; 85379; 85610; 86140; 87040; 87076; 87086; 87186; 93005; 93017; 93306; 94660; 96365; 96367; 96375; G0378; A4217; A9270-GY; A9502; A9540; A9562; C1758; C1769; C2617; J0692; J0696; J1100; J1170; J1644; J1815; J2250; J2270; J2405; J2543; J2704; J2785; J3010; J7030; J7040; J7120; Q9967; U0003

== ENCOUNTER 2021-02-04 14:47 | Inpatient (IN) | payer MEDICARE ==
--- NOTE | 2021-02-04 15:13 | Event Note ---
ED Screening Note Date of service: 02/04/21 Time: 15:01 ED Screening Note: Patient was sent by her neurologist for evaluation of the abnormal brain MRI (done today) showing possible recent stroke. Patient is vague historian She states she has been seeing neurologist to figure out whats going on with her since her stroke/mi/seizure last yr. She states she still dizzy, having FERNANDEZ, gait off balance, and generally weak. She states this neurologist she is seeing currently is new and has only seen him x 2. hx CVAx 2/[place]/Seizure This initial assessment/diagnostic orders/clinical plan/treatment(s) is/are subject to change based on patients health status, clinical progression and re-assessment by fellow clinical providers in the ED. Further treatment and workup at subsequent clinical providers discretion. Patient/guardian urged not to elope from the ED as their condition may be serious if not clinically assessed and managed. Initial orders include: labs/ekg/cxr
[2021-02-04 15:27] LABS: Basophils # (Auto) 0.1 K/mm3 (0.0-0.1); Eosinophils # (Auto) 0.5 K/mm3 (0.0-0.4); Eosinophils % (Auto) 8.3 % (0.0-4.3); Hemoglobin 11.7 gm/dl (10.1-14.3); Lymphocytes # (Auto) 1.2 K/mm3 (1.2-5.4); Lymphocytes % (Auto) 21.7 % (13.4-35.0); Mean Corpuscular HGB Conc 32 % (30-34); Mean Corpuscular Volume 81 fl (79-97); Monocytes # (Auto) 0.5 K/mm3 (0.0-0.8); Monocytes % (Auto) 9.4 % (0.0-7.3); Platelet Count 220 K/mm3 (140-440); Red Blood Count 4.58 M/mm3 (3.65-5.03); Red Cell Distribution Width 16.8 % (13.2-15.2)
[2021-02-04 15:38] LABS: INR 1.07 (0.87-1.13)
[2021-02-04 15:39] LABS: Partial Thromboplastin Time 29.1 Sec. (24.2-36.6); Thrombin Time 17.1 Sec. (15.1-19.6)
--- NOTE | 2021-02-04 15:52 | XRay Report ---
CHEST 1 VIEW 02/04/2021 3:34 PM INDICATION / CLINICAL INFORMATION: Weakness. COMPARISON: 07/12/20. FINDINGS: SUPPORT DEVICES: None. HEART / MEDIASTINUM: Mild cardiomegaly is stable. LUNGS / PLEURA: Minimal linear scarring in the left mid lung has not changed. No new pulmonary or ple ural abnormality. No pneumothorax. ADDITIONAL FINDINGS: Mild thoracolumbar scoliosis and spondylosis. IMPRESSION: No acute abnormality or significant change. Signer Name: Ricardo Doll MD Signed: 02/04/2021 3:47 PM Workstation Name: [id number]
[2021-02-04 16:01] LABS: Albumin 3.6 g/dL (3.9-5); Calcium 9.3 mg/dL (8.4-10.2); Creatine Kinase MB 3.4 ng/mL (0.0-4.0)
[2021-02-04] MEDS ORDERED: dilTIAZem 30 MG TAB PO ONE (16:24)
[2021-02-04] MEDS ORDERED: dilTIAZem 25 MG/5 ML INJ IV ONE (16:24)
[2021-02-04] MEDS ORDERED: SODIUM CHLORIDE 0.9% 500 ML 500 ML IV ONE (16:25)
--- NOTE | 2021-02-04 16:31 | Cat Scan Report ---
CT HEAD WITHOUT CONTRAST INDICATION / CLINICAL INFORMATION: Stroke symptoms. TECHNIQUE: Axial imaging performed from the skull apex through the skull base without the use of cont rast. Sagittal and coronal reformatted images. All CT scans at this location are performed using CT dose reduction for ALARA by means of automated exposure control. COMPARISON: None available. FINDINGS: CEREBRAL PARENCHYMA: Moderate hypoattenuation throughout the white matter is identified consistent wi th chronic microvascular ischemic disease. Chronic millimetric infarcts are identified in the right t halamus and lateral right cerebellar hemisphere. No acute parenchymal abnormality is appreciated on n oncontrast CT. HEMORRHAGE: None. EXTRA-AXIAL SPACES: Normal in size and morphology for the patient's age. VENTRICULAR SYSTEM: Normal in size and morphology for the patient's age. MIDLINE SHIFT OR HERNIATION: None. CEREBELLUM / BRAINSTEM: No significant abnormality. CALVARIUM: No significant abnormality. ORBITS: Normal as visualized. PARANASAL SINUSES / MASTOID AIR CELLS: Normal as visualized. SOFT TISSUES of HEAD: No significant abnormality. ADDITIONAL FINDINGS: None. IMPRESSION: No acute intracranial abnormality. Advanced chronic white matter changes. Chronic focal infarcts in t he right thalamus and right cerebellar hemisphere. If further evaluation is needed MRI could be obtai jory. Signer Name: Tyree Torres Jr, MD Signed: 02/04/2021 4:26 PM Workstation Name: [id number]
[2021-02-04 16:32] LABS: Chol/HDL Ratio 3.65 %
--- NOTE | 2021-02-04 16:32 | Emergency Department Report ---
ED General Adult HPI - General Chief complaint: Neuro Symptoms/Deficit Stated complaint: weak PUI?: No Time Seen by Provider: 02/04/21 15:37 Source: patient, RN notes reviewed, old records reviewed Mode of arrival: Wheelchair Limitations: Physical Limitation - History of Present Illness Initial comments: The patient was evaluated in the emergency department for symptoms described in the history of present illness. He/she was evaluated in the context of the global COVID-19 pandemic, which necessitated consideration that the patient might be at risk for infection with the virus that causes COVID-19. Institutional protocols and algorithms that pertain to the evaluation of patients at risk for COVID-19 are in a state of rapid change based on information released by regulatory bodies including the CDC and federal and stat e organizations. These policies and algorithms were followed during the patient's care in the emergency department. Please note that these policies, procedures and recommendations changed on a rapid basis. This is a 65-year-old female. The patient has a complex past medical history, including obesity, cholelithiasis, hydronephrosis, status post stent with stent removal, ejection fraction 55 to 60%, obesity, hypertension, seizure, stroke x2, with reported residual right-sided weakness, myocardial infarction, obstructive sleep apnea with home CPAP, and diabetes. She is sent to the emergency room by an outpatient neurology physician, a Dr. Néstor Olivera Apparently, the patient has been having complaints of headaches and feeling like she has been having an unsteady gait, since January 2020. An outpatient MRI was obtained today, through [facility] imaging services, and was reportedly found to have a stroke or subacute stroke of unknown duration or chronicity, but she was referred to the emergency room for evaluation. The patient complains of mild headache. She has chronic blurry vision. She denies chest pain. She has chronic shortness of breath. She denies hematemesis and bright red blood per rectum. She denies urinary symptoms. She denies cough. She complains of general weakness, but denies new/different weakness. As far she knows, she does not have a history of A. fib or a flutter. -: month(s) Location: head Radiation: non-radiation Consistency: intermittent Improves with: none Worsens with: none - Related Data Home Medications Medication Instructions Recorded Confirmed Last Taken Gabapentin 300 mg PO TID 07/12/20 07/12/20 07/11/20 Aspirin 325 mg PO QDAY 07/13/20 07/13/20 Unknown Atorvastatin [Lipitor] 80 mg PO DAILY 07/13/20 07/13/20 Unknown HYDROcodone/ACETAMINOPHEN 1 each PO TID 07/13/20 07/13/20 Unknown [Hydrocodone-Acetamin 7.5-300] Insulin Glargine [Lantus VIAL] 32 units SQ HS 07/13/20 07/13/20 Unknown Lutein 20 mg PO DAILY 07/13/20 07/13/20 Unknown NIFEdipine [Nifedipine ER] 60 mg PO DAILY 07/13/20 07/13/20 Unknown SUMAtriptan succinate [SUMAtriptan 100 mg PO DAILY 07/13/20 07/13/20 Unknown Succinate] Sertraline [Zoloft] 100 mg PO QDAY 07/13/20 07/13/20 Unknown levETIRAcetam [Keppra TAB] 500 mg PO BID 07/13/20 07/13/20 Unknown Previous Rx's Medication Instructions Recorded Last Taken Type Acetaminophen [Acetaminophen TAB] 650 mg PO Q4H PRN tablet 07/19/20 Unknown Rx AtorvaSTATin [Lipitor] 80 mg PO QHS #30 tablet 07/19/20 Unknown Rx Docusate Sodium [Colace CAP] 100 mg PO BID capsule 07/19/20 Unknown Rx ISOSORBIDE MONOnitrate [Imdur ER] 60 mg PO QDAY #30 tablet 07/19/20 Unknown Rx Metoprolol [Lopressor TAB] 25 mg PO BID #60 tablet 07/19/20 Unknown Rx Sennosides Tab [Senokot] 8.6 mg PO Q12HR tablet 07/19/20 Unknown Rx amLODIPine 5 mg PO QDAY #30 tablet 07/19/20 Unknown Rx cephALEXin [Keflex] 500 mg PO Q6HR #12 capsule 07/19/20 Unknown Rx hydrALAZINE [Apresoline TAB] 50 mg PO Q8HR #240 tablet 07/19/20 Unknown Rx oxyCODONE /ACETAMINOPHEN [Percocet 1 tab PO Q6H PRN tablet 07/19/20 Unknown Rx 5/325 mg] traMADoL [Ultram 50 MG tab] 50 mg PO Q6HR PRN #5 tablet 07/19/20 Unknown Rx Allergies Allergy/AdvReac Type Severity Reaction Status Date / Time No Known Allergies Allergy Verified 07/12/20 05:04 ED Review of Systems ROS: Stated complaint: POSSIBLE STROKE Other details as noted in HPI Constitutional: malaise, weakness, other (Denies loss of taste and smell). denies: fever Eyes: vision change (Chronic visual change) Respiratory: shortness of breath (Chronic shortness of breath) Cardiovascular: palpitations. denies: chest pain Gastrointestinal: denies: hematemesis, melena, hematochezia Genitourinary: denies: dysuria Neurological: headache, weakness Psychiatric: anxiety Hematological/Lymphatic: denies: easy bleeding ED Past Medical Hx - Past Medical History Previous Medical History?: Yes Hx Hypertension: Yes Hx CVA: Yes (right side weakness) Hx Heart Attack/AMI: Yes (Recent OR. + Cardiac clearance.) Hx Diabetes: Yes Hx Renal Disease: Yes (VAL. Pyelonephritis. Hydronephrosis) Hx Seizures: Yes (02/03/20 became unconscious) Additional medical history: TIA X14 had seizure after the last one became un conscious - Surgical History Additional Surgical History: B/L Knee, carpal tunnel, kidney stents, - Social History Smoking Status: Unknown if ever smoked - Medications Home Medications: Home Medications Medication Instructions Recorded Confirmed Last Taken Type Gabapentin 300 mg PO TID 07/12/20 07/12/20 07/11/20 History Aspirin 325 mg PO QDAY 07/13/20 07/13/20 Unknown History Atorvastatin [Lipitor] 80 mg PO DAILY 07/13/20 07/13/20 Unknown History HYDROcodone/ACETAMINOPHEN 1 each PO TID 07/13/20 07/13/20 Unknown History [Hydrocodone-Acetamin 7.5-300] Insulin Glargine [Lantus VIAL] 32 units SQ HS 07/13/20 07/13/20 Unknown History Lutein 20 mg PO DAILY 07/13/20 07/13/20 Unknown History NIFEdipine [Nifedipine ER] 60 mg PO DAILY 07/13/20 07/13/20 Unknown History SUMAtriptan succinate [SUMAtriptan 100 mg PO DAILY 07/13/20 07/13/20 Unknown History Succinate] Sertraline [Zoloft] 100 mg PO QDAY 07/13/20 07/13/20 Unknown History levETIRAcetam [Keppra TAB] 500 mg PO BID 07/13/20 07/13/20 Unknown History Acetaminophen [Acetaminophen TAB] 650 mg PO Q4H PRN tablet 07/19/20 Unknown Rx AtorvaSTATin [Lipitor] 80 mg PO QHS #30 tablet 07/19/20 Unknown Rx Docusate Sodium [Colace CAP] 100 mg PO BID capsule 07/19/20 Unknown Rx ISOSORBIDE MONOnitrate [Imdur ER] 60 mg PO QDAY #30 tablet 07/19/20 Unknown Rx Metoprolol [Lopressor TAB] 25 mg PO BID #60 tablet 07/19/20 Unknown Rx Sennosides Tab [Senokot] 8.6 mg PO Q12HR tablet 07/19/20 Unknown Rx amLODIPine 5 mg PO QDAY #30 tablet 07/19/20 Unknown Rx cephALEXin [Keflex] 500 mg PO Q6HR #12 capsule 07/19/20 Unknown Rx hydrALAZINE [Apresoline TAB] 50 mg PO Q8HR #240 tablet 07/19/20 Unknown Rx oxyCODONE /ACETAMINOPHEN [Percocet 1 tab PO Q6H PRN tablet 07/19/20 Unknown Rx 5/325 mg] traMADoL [Ultram 50 MG tab] 50 mg PO Q6HR PRN #5 tablet 07/19/20 Unknown Rx ED Physical Exam - General Limitations: No Limitations General appearance: alert, anxious, obese - Head Head exam: Present: atraumatic, normocephalic - Eye Eye exam: Present: normal appearance, PERRL, EOMI, other (Visual acuity intact to finger counting and color perception at a close distance). Absent: nystagmus - ENT ENT exam: Present: normal exam, normal orophraynx, mucous membranes moist, normal external ear exam - Neck Neck exam: Present: normal inspection, full ROM. Absent: tenderness - Respiratory Respiratory exam: Present: decreased breath sounds. Absent: respiratory distress, wheezes, rales, rhonchi, stridor - Cardiovascular Cardiovascular Exam: Present: tachycardia, normal heart sounds. Absent: systolic murmur, diastolic murmur, rubs, gallop - GI/Abdominal GI/Abdominal exam: Present: soft. Absent: distended, tenderness, guarding, rebound, rigid, pulsatile mass - Extremities Exam Extremities exam: Present: normal inspection, full ROM, pedal edema (1+ edema in the bilateral lower extremity), other (2+ pulses noted in the bilateral upper and lower extremities. There is no palpable cord. negative Homans sign. Muscular compartments are soft. The pelvis is stable.). Absent: calf tenderness - Back Exam Back exam: Present: normal inspection. Absent: tenderness, CVA tenderness (R), CVA tenderness (L), paraspinal tenderness, vertebral tenderness - Neurological Exam Neurological exam: Present: alert, other (No facial droop. Tongue midline. Extraocular movements intact bilaterally. Facial sensation intact to light touch in V1, V2, V3 distribution bilaterally. 5 and a 5 strength in 4 extremities. Sensation intact to light touch in 4 extremities.) - Psychiatric Psychiatric exam: Present: anxious - Skin Skin exam: Present: warm, dry, intact, normal color. Absent: rash ED Course Vital Signs 02/04/21 02/04/21 02/04/21 14:50 14:51 17:09 Temperature 98.3 F Pulse Rate 134 H 138 H Respiratory 20 18 Rate Blood Pressure 180/110 Blood Pressure 163/112 [Right] O2 Sat by Pulse 98 96 Oximetry - Reevaluation(s) Reevaluation #1: 02/04/21 16:41 Differential diagnosis, including but not limited to: A. fib with RVR, subacute stroke, dehydration, renal insufficiency, type II troponin leak Assessment and plan: 65-year-old female who was sent to the emergency room by an outpatient neurologist, reportedly having had an outpatient MRI today which demonstrated a stroke of unknown chronicity and duration, patient presents with disc, but without reports, in addition, her referring neurologist has not contacted anyone at this institution that I am aware of, so the true extent of her disease is not known at this time. Multiple attempts were made by myself to have MRI uploaded to our PACS imaging system and [employer] system, medical lab technologist informs me that from their perspective, they can see the disc and images have been uploaded, but I am not able to obtain a formal radiology evaluation of this outpatient MRI. However, the patient is not a TPA candidate as her symptoms have been going on for months, in addition, her examination at this time is not suggestive of a large vessel occlusion, and again, given that symptoms have been present for greater than 24 hours, in conjunction with renal insufficiency, patient does not require emergent CT angiogram of the head and neck. She is found to be in A. fib with RVR of unknown duration and chronicity. We have requested neurology evaluation, she is currently going to receive an evaluation at this time, whereby neurology will make further recommendations. Aspirin is recommended at this time, for the time being, we will hold off on systemic anticoagulation, as we do not know if patient has had a stroke acutely, or subacute stroke. Patient is amenable to admission and hospitalization. Elevated troponin is likely a type II troponin leak. Hospital physician, Dr. German Torres to admit to [facility] Reevaluation #2: 02/04/21 17:24 Dr Acuna, radiology has provided a wet read of outpatient MRI acute tiny infarct R temporoparietal region another small area R centrum semiovale maybe a little more subacute Reevaluation #3: 02/04/21 17:46 Heart rate now 80 bpm. Patient resting comfortably at this time. She is in no acute distress. This is status post diltiazem, 20 mg IV, 30 mg orally ED Medical Decision Making - Lab Data Result diagrams: 02/04/21 15:13 02/04/21 15:13 Vital Signs 02/04/21 14:50 Temperature 98.3 F Pulse Rate 134 H Respiratory 20 Rate Blood Pressure 163/112 [Right] O2 Sat by Pulse 98 Oximetry Lab Results 02/04/21 02/04/21 02/04/21 Range/Units 15:13 15:13 15:13 WBC 5.5 (4.5-11.0) K/mm3 RBC 4.58 (3.65-5.03) M/mm3 Hgb 11.7 (10.1-14.3) gm/dl Hct 37.0 (30.3-42.9) % MCV 81 (79-97) fl MCH 26 L (28-32) pg MCHC 32 (30-34) % RDW 16.8 H (13.2-15.2) % Plt Count 220 (140-440) K/mm3 Lymph % (Auto) 21.7 (13.4-35.0) % Terry % (Auto) 9.4 H (0.0-7.3) % Eos % (Auto) 8.3 H (0.0-4.3) % Baso % (Auto) 1.0 (0.0-1.8) % Lymph # (Auto) 1.2 (1.2-5.4) K/mm3 Terry # (Auto) 0.5 (0.0-0.8) K/mm3 Eos # (Auto) 0.5 H (0.0-0.4) K/mm3 Baso # (Auto) 0.1 (0.0-0.1) K/mm3 Seg Neutrophils % 59.6 (40.0-70.0) % Seg Neutrophils # 3.3 (1.8-7.7) K/mm3 PT 13.7 (12.2-14.9) Sec. INR 1.07 (0.87-1.13) APTT 29.1 (24.2-36.6) Sec. Thrombin Time 17.1 (15.1-19.6) Sec. Sodium (137-145) mmol/L Potassium (3.6-5.0) mmol/L Chloride (98-107) mmol/L Carbon Dioxide (22-30) mmol/L Anion Gap mmol/L BUN (7-17) mg/dL Creatinine (0.6-1.2) mg/dL Estimated GFR ml/min BUN/Creatinine Ratio % Glucose (65-100) mg/dL Calcium (8.4-10.2) mg/dL Magnesium (1.7-2.3) mg/dL Total Bilirubin (0.1-1.2) mg/dL AST (5-40) units/L ALT (7-56) units/L Alkaline Phosphatase (35-129) units/L Total Creatine Kinase 240 H (30-135) units/L CK-MB (CK-2) 3.4 (0.0-4.0) ng/mL CK-MB (CK-2) Rel Index 1.4 (0-4) Troponin T 0.042 H (0.00-0.029) ng/mL Total Protein (6.3-8.2) g/dL Albumin (3.9-5) g/dL Albumin/Globulin Ratio % TSH (0.270-4.200) mlU/mL 02/04/21 02/04/21 02/04/21 Range/Units 15:13 15:25 15:25 WBC (4.5-11.0) K/mm3 RBC (3.65-5.03) M/mm3 Hgb (10.1-14.3) gm/dl Hct (30.3-42.9) % MCV (79-97) fl MCH (28-32) pg MCHC (30-34) % RDW (13.2-15.2) % Plt Count (140-440) K/mm3 Lymph % (Auto) (13.4-35.0) % [place] % (Auto) (0.0-7.3) % Eos % (Auto) (0.0-4.3) % Baso % (Auto) (0.0-1.8) % Lymph # (Auto) (1.2-5.4) K/mm3 Terry # (Auto) (0.0-0.8) K/mm3 Eos # (Auto) (0.0-0.4) K/mm3 Baso # (Auto) (0.0-0.1) K/mm3 Seg Neutrophils % (40.0-70.0) % Seg Neutrophils # (1.8-7.7) K/mm3 PT (12.2-14.9) Sec. INR (0.87-1.13) APTT (24.2-36.6) Sec. Thrombin Time (15.1-19.6) Sec. Sodium 144 (137-145) mmol/L Potassium 3.8 (3.6-5.0) mmol/L Chloride 108.6 H (98-107) mmol/L Carbon Dioxide 22 (22-30) mmol/L Anion Gap 17 mmol/L BUN 31 H (7-17) mg/dL Creatinine 1.8 H (0.6-1.2) mg/dL Estimated GFR 34 ml/min BUN/Creatinine Ratio 17 % Glucose 162 H (65-100) mg/dL Calcium 9.3 (8.4-10.2) mg/dL Magnesium 1.90 (1.7-2.3) mg/dL Total Bilirubin 0.70 (0.1-1.2) mg/dL AST 27 (5-40) units/L ALT 44 (7-56) units/L Alkaline Phosphatase 114 (35-129) units/L Total Creatine Kinase 240 H (30-135) units/L CK-MB (CK-2) (0.0-4.0) ng/mL CK-MB (CK-2) Rel Index (0-4) Troponin T (0.00-0.029) ng/mL Total Protein 6.9 (6.3-8.2) g/dL Albumin 3.6 L (3.9-5) g/dL Albumin/Globulin Ratio 1.1 % TSH 1.140 (0.270-4.200) mlU/mL - EKG Data -: EKG Interpreted by Me Rate: tachycardia - EKG Data 02/04/21 16:32 EKG shows A. fib, 134 bpm, motion artifact, poor R wave progression, left axis deviation, QTC prolonged. Abnormal EKG. Not a STEMI. When compared to prior EKG from 2019, A. fib appears to be new. - Radiology Data Radiology results: pending, report reviewed, image reviewed CT HEAD WITHOUT CONTRAST INDICATION / CLINICAL INFORMATION: Stroke symptoms. TECHNIQUE: Axial imaging performed from the skull apex through the skull base without the use of contrast. Sagittal and coronal reformatted images. All CT scans at this location are performed using CT dose reduction for ALARA by means of automated exposure control. COMPARISON: None available. FINDINGS: CEREBRAL PARENCHYMA: Moderate hypoattenuation throughout the white matter is identified consistent with chronic microvascular ischemic disease. Chronic millimetric infarcts are identified in the right thalamus and lateral right cerebellar hemisphere. No acute parenchymal abnormality is appreciated on noncontrast CT. HEMORRHAGE: None. EXTRA-AXIAL SPACES: Normal in size and morphology for the patient's age. VENTRICULAR SYSTEM: Normal in size and morphology for the patient's age. MIDLINE SHIFT OR HERNIATION: None. CEREBELLUM / BRAINSTEM: No significant abnormality. CALVARIUM: No significant abnormality. ORBITS: Normal as visualized. PARANASAL SINUSES / MASTOID AIR CELLS: Normal as visualized. SOFT TISSUES of HEAD: No significant abnormality. ADDITIONAL FINDINGS: None. IMPRESSION: No acute intracranial abnormality. Advanced chronic white matter changes. Chronic focal infarcts in the right thalamus and right cerebellar hemisphere. If further evaluation is needed MRI could be obtained. Signer Name: Tyree Torres Jr, MD Signed: 02/04/2021 3:26 PM Workstation Name: [id number] 1 VIEW 02/04/2021 3:34 PM INDICATION / CLINICAL INFORMATION: Weakness. COMPARISON: 07/12/20. FINDINGS: SUPPORT DEVICES: None. HEART / MEDIASTINUM: Mild cardiomegaly is stable. LUNGS / PLEURA: Minimal linear scarring in the left mid lung has not changed. No new pulmonary or pleural abnormality. No pneumothorax. ADDITIONAL FINDINGS: Mild thoracolumbar scoliosis and spondylosis. IMPRESSION: No acute abnormality or significant change. Signer Name: Ricardo Doll MD Signed: 02/04/2021 2:47 PM Workstation Name: [email or web address] Critical Care Time: Yes Critical care time in (mins) excluding proc time.: 74 Critical care attestation.: If time is entered above; I have spent that time in minutes in the direct care of this critically ill patient, excluding procedure time. ED Disposition Clinical Impression: Renal insufficiency, Elevated troponin, History of CVA (cerebrovascular accident), Atrial fibrillation with RVR Disposition: 09 OP ADMIT IP TO THIS HOSP Is pt being admited?: Yes Does the pt Need Aspirin: No Condition: Serious Referrals: PRIMARY CARE, [Primary Care Provider] - 3-5 Days
[2021-02-04] MEDS ORDERED: ASPIRIN 81 MG TAB CHEW PO ONE (16:40)
--- NOTE | 2021-02-04 18:04 | History and Physical Report ---
Medications and Allergies Allergies Allergy/AdvReac Type Severity Reaction Status Date / Time No Known Allergies Allergy Verified 07/12/20 05:04 Home Medications Medication Instructions Recorded Confirmed Last Taken Type Gabapentin 300 mg PO TID 07/12/20 07/12/20 07/11/20 History Aspirin 325 mg PO QDAY 07/13/20 07/13/20 Unknown History Atorvastatin [Lipitor] 80 mg PO DAILY 07/13/20 07/13/20 Unknown History HYDROcodone/ACETAMINOPHEN 1 each PO TID 07/13/20 07/13/20 Unknown History [Hydrocodone-Acetamin 7.5-300] Insulin Glargine [Lantus VIAL] 32 units SQ HS 07/13/20 07/13/20 Unknown History Lutein 20 mg PO DAILY 07/13/20 07/13/20 Unknown History NIFEdipine [Nifedipine ER] 60 mg PO DAILY 07/13/20 07/13/20 Unknown History SUMAtriptan succinate [SUMAtriptan 100 mg PO DAILY 07/13/20 07/13/20 Unknown History Succinate] Sertraline [Zoloft] 100 mg PO QDAY 07/13/20 07/13/20 Unknown History levETIRAcetam [Keppra TAB] 500 mg PO BID 07/13/20 07/13/20 Unknown History Acetaminophen [Acetaminophen TAB] 650 mg PO Q4H PRN tablet 07/19/20 Unknown Rx AtorvaSTATin [Lipitor] 80 mg PO QHS #30 tablet 07/19/20 Unknown Rx Docusate Sodium [Colace CAP] 100 mg PO BID capsule 07/19/20 Unknown Rx ISOSORBIDE MONOnitrate [Imdur ER] 60 mg PO QDAY #30 tablet 07/19/20 Unknown Rx Metoprolol [Lopressor TAB] 25 mg PO BID #60 tablet 07/19/20 Unknown Rx Sennosides Tab [Senokot] 8.6 mg PO Q12HR tablet 07/19/20 Unknown Rx amLODIPine 5 mg PO QDAY #30 tablet 07/19/20 Unknown Rx cephALEXin [Keflex] 500 mg PO Q6HR #12 capsule 07/19/20 Unknown Rx hydrALAZINE [Apresoline TAB] 50 mg PO Q8HR #240 tablet 07/19/20 Unknown Rx oxyCODONE /ACETAMINOPHEN [Percocet 1 tab PO Q6H PRN tablet 07/19/20 Unknown Rx 5/325 mg] traMADoL [Ultram 50 MG tab] 50 mg PO Q6HR PRN #5 tablet 07/19/20 Unknown Rx Physical Examination - Vital Signs Vital Signs: Vital Signs Temp Pulse Resp BP Pulse Ox 98.3 F 134 H 20 163/112 98 02/04/21 14:50 02/04/21 14:50 02/04/21 14:50 02/04/21 14:50 02/04/21 14:50 Results - Laboratory Findings CBC and BMP: 02/04/21 15:13 02/04/21 15:13 Abnormal Lab Findings: Abnormal Labs 02/04/21 02/04/21 02/04/21 15:13 15:13 15:13 MCH 26 L RDW 16.8 H [place] % (Auto) 9.4 H Eos % (Auto) 8.3 H Eos # (Auto) 0.5 H Chloride 108.6 H BUN 31 H Creatinine 1.8 H Glucose 162 H Total Creatine Kinase 240 H Troponin T 0.042 H Albumin 3.6 L HDL Cholesterol 32 L 02/04/21 15:25 MCH RDW [place] % (Auto) Eos % (Auto) Eos # (Auto) Chloride BUN Creatinine Glucose Total Creatine Kinase 240 H Troponin T Albumin HDL Cholesterol Assessment and Plan [facility] Consult Note # Demographics Consult Type: Acute Stroke Level 2 (4.5-24 hrs) Patient Location: Emergency Room First Name: Faith Last Name: Chaparro Date of : 1955 Age: 65 Gender: Female Time of Initial Page ( Time): 02/04/2021, 16:33 Time of Return Call ( Time): 02/04/2021, 16:33 # HPI History: 65 yo woman with history of previous strokes, DM, HTN, HLD, and afib. Today had outpatient MRI for headaches reportedly showed acute or subacute stroke. From her pervious stroke was left with left-sided numbness and weakness. She reportedly has a history of afib but is currently not scarlett # Scores Time of exam and NIHSS ( Time): 02/04/2021, 16:47 Level of Consciousness 1a: [0] = Alert; keenly responsive LOC Questions 1b: [0] = Answers both questions correctly LOC Commands 1c: [0] = Performs both tasks correctly Best Gaze 2: [0] = Normal Visual 3: [0] = No visual loss Facial Palsy 4: [0] = Normal symmetrical movements Motor Arm Left 5a: [1] = Drift Motor Arm Right 5b: [0] = No drift Motor Leg Left 6a: [1] = Drift Motor Leg Right 6b: [0] = No drift Sensory 8: [1] = [id number] sensory loss Best Language 9: [0] = No aphasia Dysarthria 10: [0] = Normal Extinction and Inattention 11: [0] = No abnormality NIHSS Total: 3 # Exam SBP: 174 DBP: 30 # PMH-FH- Past Medical History: arthritis, coronary artery disease, chronic kidney disease, hyperlipidemia, hypertension, seizure, stroke, fibromylagia Social History: non-smoker, non-drinker Medications: ASA 325 mg, Keppra 500 mg BID Allergies: NKDA # Assessment Impression: Ischemic Stroke (Acute), New stroke on outpatient MRI. Multiple stroke risk factors including Afib (not anticoagulated), DM, HTN, HLD. # Plan Thrombolytic/Intervention: NOT IV Thrombolytic or IA Intervention Thrombolytic Exclusion (< 3 hour window): time of onset unclear Intraarterial Exclusion: other (see below), Symptoms not suggestive of LVO Labs: hemoglobin A1c, lipid panel Imaging: (urgency: routine admission): MR Angiogram Head without contrast, MR Angiogram Neck with contrast Diagnostic Test: echo with bubble study Therapy/Evaluation: NPO until swallow evaluation, PT/OT evaluation, speech/swallow consultation Medication: Recommend full anticoagulation for stroke prevention in setting of afib DVT Prophylaxis: SCD, chemical DVT prophylaxis Other: LDL < 70, telemetry monitoring, I have discussed my recommendations with the referring provider Additional Recommendations: Would typically wait 7 days post stroke before starting full anticoagulation for stroke prevention in setting of afib and recent stroke. Continue ASA for now, once started on full anticoagulation would dc ASA Disposition: admit
[2021-02-04 18:29] LABS: Bilirubin,Urine NEG (Negative); Blood,Urine NEG (Negative); Color,Urine Yellow (Yellow); Mucus,Urine FEW /HPF; Protein,Urine >500 mg/dL (Negative); Urobilinogen,Urine < 2.0 mg/dL (<2.0)
[2021-02-04] MEDS ORDERED: amLODIPine 5 MG TAB PO STA (19:30)
[2021-02-04] MEDS ORDERED: hydrALAZINE 25 MG TAB PO STA (19:30)
[2021-02-04] MEDS ORDERED: NIFEdipine XL 60 MG TAB PO STA (19:30)
[2021-02-04] MEDS ORDERED: ACETAMINOPHEN 325 MG TAB PO PRN (23:56)
--- NOTE | 2021-02-04 23:56 | History and Physical Report ---
History of Present Illness Date of examination: 02/04/21 Date of admission: 02/04/21 17:25 Chief complaint: Acute right CVA History of present illness: This is a 65-year-old female. The patient has a complex past medical history, including obesity, cholelithiasis, hydronephrosis, status post stent with stent removal, ejection fraction 55 to 60%, obesity, hypertension, seizure, stroke x2, with reported residual right-sided weakness, myocardial infarction, obstructive sleep apnea with home CPAP, and diabetes. She is sent to the emergency room by an outpatient neurology physician, a Dr. Néstor Olivera Apparently, the patient has been having complaints of headaches and feeling like she has been having an unsteady gait, since January 2020. An outpatient MRI was ob tained today, through [facility] imaging services, and was reportedly found to have a stroke or subacute stroke of unknown duration or chronicity, but she was referred to the emergency room for evaluation. The patient complains of mild headache. She has chronic blurry vision. She denies chest pain. She has chronic shortness of breath. She denies hematemesis and bright red blood per rectum. She denies urinary symptoms. She denies cough. She complains of general weakness, but denies new/different weakness. - Past Medical History Previous Medical History?: Yes Hx Hypertension: Yes Hx CVA: Yes (right side weakness) Hx Heart Attack/AMI: Yes (Recent [place]. + Cardiac clearance.) Hx Diabetes: Yes Hx Renal Disease: Yes (VAL. Pyelonephritis. Hydronephrosis) Hx Seizures: Yes (02/03/20 became unconscious) Additional medical history: TIA X14 had seizure after the last one became unco nscious - Surgical History Additional Surgical History: B/L Knee, carpal tunnel, kidney stents, - Social History Smoking Status: Unknown if ever smoked - Medications Home Medications: Home Medications Medication Instructions Recorded Confirmed Last Taken Type Gabapentin 300 mg PO TID 07/12/20 07/12/20 07/11/20 History Aspirin 325 mg PO QDAY 07/13/20 07/13/20 Unknown History Atorvastatin [Lipitor] 80 mg PO DAILY 07/13/20 07/13/20 Unknown History HYDROcodone/ACETAMINOPHEN 1 each PO TID 07/13/20 07/13/20 Unknown History [Hydrocodone-Acetamin 7.5-300] Insulin Glargine [Lantus VIAL] 32 units SQ HS 07/13/20 07/13/20 Unknown History Lutein 20 mg PO DAILY 07/13/20 07/13/20 Unknown History NIFEdipine [Nifedipine ER] 60 mg PO DAILY 07/13/20 07/13/20 Unknown History SUMAtriptan succinate [SUMAtriptan 100 mg PO DAILY 07/13/20 07/13/20 Unknown History Succinate] Sertraline [Zoloft] 100 mg PO QDAY 07/13/20 07/13/20 Unknown History levETIRAcetam [Keppra TAB] 500 mg PO BID 07/13/20 07/13/20 Unknown History Acetaminophen [Acetaminophen TAB] 650 mg PO Q4H PRN tablet 07/19/20 Unknown Rx AtorvaSTATin [Lipitor] 80 mg PO QHS #30 tablet 07/19/20 Unknown Rx Docusate Sodium [Colace CAP] 100 mg PO BID capsule 07/19/20 Unknown Rx ISOSORBIDE MONOnitrate [Imdur ER] 60 mg PO QDAY #30 tablet 07/19/20 Unknown Rx Metoprolol [Lopressor TAB] 25 mg PO BID #60 tablet 07/19/20 Unknown Rx Sennosides Tab [Senokot] 8.6 mg PO Q12HR tablet 07/19/20 Unknown Rx amLODIPine 5 mg PO QDAY #30 tablet 07/19/20 Unknown Rx cephALEXin [Keflex] 500 mg PO Q6HR #12 capsule 07/19/20 Unknown Rx hydrALAZINE [Apresoline TAB] 50 mg PO Q8HR #240 tablet 07/19/20 Unknown Rx oxyCODONE /ACETAMINOPHEN [Percocet 1 tab PO Q6H PRN tablet 07/19/20 Unknown Rx 5/325 mg] traMADoL [Ultram 50 MG tab] 50 mg PO Q6HR PRN #5 tablet 07/19/20 Unknown Rx Review of Systems ROS: Stated complaint: POSSIBLE STROKE Other details as noted in HPI Constitutional: malaise, weakness, other (Denies loss of taste and smell). denies: fever Eyes: vision change (Chronic visual change) Respiratory: shortness of breath (Chronic shortness of breath) Cardiovascular: palpitations. denies: chest pain Gastrointestinal: denies: hematemesis, melena, hematochezia Genitourinary: denies: dysuria Neurological: Left-sided weakness Psychiatric: anxiety Hematological/Lymphatic: denies: easy bleeding Medications and Allergies Allergies Allergy/AdvReac Type Severity Reaction Status Date / Time No Known Allergies Allergy Verified 07/12/20 05:04 Home Medications Medication Instructions Recorded Confirmed Last Taken Type Gabapentin 300 mg PO TID 07/12/20 02/06/21 07/11/20 History Aspirin 325 mg PO QDAY 07/13/20 02/06/21 Unknown History Atorvastatin [Lipitor] 80 mg PO DAILY 07/13/20 02/06/21 Unknown History HYDROcodone/ACETAMINOPHEN 1 each PO TID 07/13/20 02/06/21 Unknown History [Hydrocodone-Acetamin 7.5-300] Sertraline [Zoloft] 100 mg PO QDAY 07/13/20 02/06/21 Unknown History levETIRAcetam [Keppra TAB] 500 mg PO BID 07/13/20 02/06/21 Unknown History ISOSORBIDE MONOnitrate [Imdur ER] 60 mg PO QDAY #30 tablet 07/19/20 02/06/21 Unknown Rx Metoprolol [Lopressor TAB] 25 mg PO BID #60 tablet 07/19/20 02/06/21 Unknown Rx hydrALAZINE [Apresoline TAB] 50 mg PO Q8HR #240 tablet 07/19/20 02/06/21 Unknown Rx Exam - Constitutional Vitals: Temp Pulse Resp BP Pulse Ox 98.1 F 125 H 16 166/99 98 02/04/21 23:03 02/04/21 23:04 02/04/21 23:03 02/04/21 23:03 02/04/21 23:03 General appearance: Present: no acute distress, well-nourished - EENT Eyes: Present: PERRL ENT: hearing intact, clear oral mucosa - Neck Neck: Present: supple, normal ROM - Respiratory Respiratory effort: normal Respiratory: bilateral: CTA - Cardiovascular Heart rate: 78 Rhythm: regular Heart Sounds: Present: S1 & S2. Absent: rub, click - Extremities Extremities: pulses symmetrical, No edema Peripheral Pulses: within normal limits - Abdominal General gastrointestinal: Present: soft, non-tender, non-distended, normal bowel sounds Female genitourinary: Present: normal - Integumentary Integumentary: Present: clear, warm, dry - Musculoskeletal Musculoskeletal: left sided weakness - Psychiatric Psychiatric: depressed - Neurologic Neurologic: CNII-XII intact, focal deficits (Left-sided weakness), moves all extremities - Allied Health Allied health notes reviewed: nursing, case management HEART Score - HEART Score Troponin: Troponin T 0.033 ng/mL (0.00-0.029) H 02/04/21 20:09 Results - Labs CBC & Chem 7: 02/07/21 13:48 02/08/21 05:29 Labs: Laboratory Last Values WBC 5.5 K/mm3 (4.5-11.0) 02/04/21 15:13 RBC 4.58 M/mm3 (3.65-5.03) 02/04/21 15:13 Hgb 11.7 gm/dl (10.1-14.3) 02/04/21 15:13 Hct 37.0 % (30.3-42.9) 02/04/21 15:13 MCV 81 fl (79-97) 02/04/21 15:13 MCH 26 pg (28-32) L 02/04/21 15:13 MCHC 32 % (30-34) 02/04/21 15:13 RDW 16.8 % (13.2-15.2) H 02/04/21 15:13 Plt Count 220 K/mm3 (140-440) 02/04/21 15:13 Lymph % (Auto) 21.7 % (13.4-35.0) 02/04/21 15:13 [place] % (Auto) 9.4 % (0.0-7.3) H 02/04/21 15:13 Eos % (Auto) 8.3 % (0.0-4.3) H 02/04/21 15:13 Baso % (Auto) 1.0 % (0.0-1.8) 02/04/21 15:13 Lymph # (Auto) 1.2 K/mm3 (1.2-5.4) 02/04/21 15:13 [place] # (Auto) 0.5 K/mm3 (0.0-0.8) 02/04/21 15:13 Eos # (Auto) 0.5 K/mm3 (0.0-0.4) H 02/04/21 15:13 Baso # (Auto) 0.1 K/mm3 (0.0-0.1) 02/04/21 15:13 Seg Neutrophils % 59.6 % (40.0-70.0) 02/04/21 15:13 Seg Neutrophils # 3.3 K/mm3 (1.8-7.7) 02/04/21 15:13 PT 13.7 Sec. (12.2-14.9) 02/04/21 15:13 INR 1.07 (0.87-1.13) 02/04/21 15:13 APTT 29.1 Sec. (24.2-36.6) 02/04/21 15:13 Thrombin Time 17.1 Sec. (15.1-19.6) 02/04/21 15:13 Sodium 144 mmol/L (137-145) 02/04/21 15:13 Potassium 3.8 mmol/L (3.6-5.0) 02/04/21 15:13 Chloride 108.6 mmol/L (98-107) H 02/04/21 15:13 Carbon Dioxide 22 mmol/L (22-30) 02/04/21 15:13 Anion Gap 17 mmol/L 02/04/21 15:13 BUN 31 mg/dL (7-17) H 02/04/21 15:13 Creatinine 1.8 mg/dL (0.6-1.2) H 02/04/21 15:13 Estimated GFR 34 ml/min 02/04/21 15:13 BUN/Creatinine Ratio 17 % 02/04/21 15:13 Glucose 162 mg/dL (65-100) H 02/04/21 15:13 Calcium 9.3 mg/dL (8.4-10.2) 02/04/21 15:13 Magnesium 1.90 mg/dL (1.7-2.3) 02/04/21 15:25 Total Bilirubin 0.70 mg/dL (0.1-1.2) 02/04/21 15:13 AST 27 units/L (5-40) 02/04/21 15:13 ALT 44 units/L (7-56) 02/04/21 15:13 Alkaline Phosphatase 114 units/L (35-129) 02/04/21 15:13 Total Creatine Kinase 240 units/L (30-135) H 02/04/21 15:25 CK-MB (CK-2) 3.4 ng/mL (0.0-4.0) 02/04/21 15:13 CK-MB (CK-2) Rel Index 1.4 (0-4) 02/04/21 15:13 Troponin T 0.033 ng/mL (0.00-0.029) H 02/04/21 20:09 Total Protein 6.9 g/dL (6.3-8.2) 02/04/21 15:13 Albumin 3.6 g/dL (3.9-5) L 02/04/21 15:13 Albumin/Globulin Ratio 1.1 % 02/04/21 15:13 Triglycerides 121 mg/dL (2-149) 02/04/21 15:13 Cholesterol 117 mg/dL (50-199) 02/04/21 15:13 LDL Cholesterol Direct 67 mg/dL (50-130) 02/04/21 15:13 HDL Cholesterol 32 mg/dL (40-59) L 02/04/21 15:13 Cholesterol/HDL Ratio 3.65 % 02/04/21 15:13 TSH 1.140 mlU/mL (0.270-4.200) 02/04/21 15:25 Urine Color Yellow (Yellow) 02/04/21 16:51 Urine Turbidity Clear (Clear) 02/04/21 16:51 Urine pH 5.0 (5.0-7.0) 02/04/21 16:51 Ur Specific [place] 1.019 (1.003-1.030) 02/04/21 16:51 Urine Protein >500 mg/dL (Negative) 02/04/21 16:51 Urine Glucose (UA) Neg mg/dL (Negative) 02/04/21 16:51 Urine Ketones Tr mg/dL (Negative) 02/04/21 16:51 Urine Blood Neg (Negative) 02/04/21 16:51 Urine Nitrite Neg (Negative) 02/04/21 16:51 Ur Reducing Substances Not Reportable 02/04/21 16:51 Urine Bilirubin Neg (Negative) 02/04/21 16:51 Urine Ictotest Not Reportable 02/04/21 16:51 Urine Urobilinogen < 2.0 mg/dL (<2.0) 02/04/21 16:51 Ur Leukocyte Esterase Neg (Negative) 02/04/21 16:51 Urine WBC (Auto) 1.0 /HPF (0.0-6.0) 02/04/21 16:51 Urine RBC (Auto) 1.0 /HPF (0.0-6.0) 02/04/21 16:51 U Epithel Cells (Auto) 3.0 /HPF (0-13.0) 02/04/21 16:51 Urine Mucus Few /HPF 02/04/21 16:51 Short CBC 02/07/21 Range/Units 13:48 WBC 6.3 (4.5-11.0) K/mm3 Hgb 9.8 L (10.1-14.3) gm/dl Hct 30.4 D (30.3-42.9) % Plt Count 214 (140-440) K/mm3 BMP 02/07/21 02/08/21 13:48 05:29 Sodium 142 Potassium 4.2 Chloride 108.7 H Carbon Dioxide 23 BUN 53 H Creatinine 2.8 H D 2.5 H Glucose 119 H Calcium 8.7 - Imaging and Cardiology MRI - head: report reviewed Imaging and Cardiology: MRI brain To recent small deep infarctions in the right cerebral hemisphere Advanced parenchymal volume loss with an extensive microvascular ischemic change Remote bilateral thalamic and bilateral ganglia capsular small deep infarctions Assessment and Plan Advance Directives: Yes (Full code) VTE prophylaxis?: Chemical Plan of care discussed with patient/family: Yes - Patient Problems (1) Acute CVA (cerebrovascular accident) Current Visit: Yes Status: Acute Plan to address problem: CVA protocol Neuro consult requested High dose statin started (2) Hypertension Current Visit: Yes Status: Chronic Qualifiers: Hypertension type: essential hypertension Qualified Code(s): I10 - Essential (primary) hypertension Plan to address problem: Continue antihypertensives (3) Coronary artery disease Current Visit: Yes Status: Chronic Qualifiers: Coronary Disease-Associated Artery/Lesion type: [place] artery [place] vs. transplanted heart: [place] heart Plan to address problem: Continue isosorbide mononitrate and aspirin (4) Hyperlipidemia Current Visit: Yes Status: Chronic Qualifiers: Hyperlipidemia type: mixed hyperlipidemia Qualified Code(s): E78.2 - Mixed hyperlipidemia Plan to address problem: Continue statins (5) Vascular dementia Current Visit: Yes Status: Chronic Qualifiers: Dementia behavioral disturbance: without behavioral disturbance Qualified Code(s): F01.50 - Vascular dementia without behavioral disturbance Plan to address problem: Secondary to multiple strokes (6) DVT prophylaxis Current Visit: Yes Status: Acute Plan to address problem: On heparin and GI prophylaxis
[2021-02-05] MEDS ORDERED: ACETAMINOPHEN 325 MG TAB PO PRN (00:12)
[2021-02-05] MEDS ORDERED: METOCLOPRAMIDE 10 MG/2 ML INJ IV PRN ×2 (00:12→00:30)
[2021-02-05] MEDS ORDERED: ONDANSETRON 4 MG/2 ML INJ IV PRN (00:12)
[2021-02-05] MEDS ORDERED: MORPHINE 2 MG/1 ML INJ IV PRN (00:12)
[2021-02-05] MEDS ORDERED: SUMAtriptan SUCCINATE 50 MG TAB PO PRN (01:10)
[2021-02-05] MEDS: dilTIAZem 60 MG TAB PO SCH ×4 (01:22→17:51)
[2021-02-05] MEDS: HEPARIN 5,000 UNIT/1 ML VIAL SUB-Q SCH ×3 (01:22→22:36)
[2021-02-05] MEDS: METOPROLOL TARTRATE 25 MG TAB PO SCH ×3 (01:23→22:35)
[2021-02-05] MEDS: levETIRAcetam 500 MG TAB PO SCH ×3 (01:24→22:35)
--- NOTE | 2021-02-05 07:40 | History and Physical Report ---
History of Present Illness Date of examination: 02/05/21 Date of admission: 02/04/21 17:25 Chief complaint: weakness new onset AF History of present illness: This is a 65-year-old female. The patient has a complex past medical history, including obesity, cholelithiasis, hydronephrosis, status post stent with stent removal, ejection fraction 55 to 60%, obesity, hypertension, seizure, stroke x2, with reported residual right-sided weakness, myocardial infarction, obstructive sleep apnea with home CPAP, and diabetes. She is sent to the emergency room by an outpatient neurology physician, Dr. Néstor Olivera Apparently, the patient has been having complaints of headaches and feeling like she has been having an unsteady gait, since January 2020. An outpatient MRI was obtained today, through [facility] imaging services, and was reportedly found to have a stroke or subacute stroke of unknown duration or chronicity, but she was referred to the emergency room for evaluation. The patient complains of mild headache. She has chronic blurry vision. She denies chest pain. She has chronic shortness of breath. She denies hematemesis and bright red blood per rectum. She denies urinary symptoms. She denies cough. She complains of general weakness, but denies new/different weakness. As far she knows, she does not have a history of A. fib or a flutter before she is a bad hsitorian she is with underlying anxiety possibly related to her condition Past History Past Medical History: atrial fib, hypertension, migraines, seizures, stroke Medications and Allergies Allergies Allergy/AdvReac Type Severity Reaction Status Date / Time No Known Allergies Allergy Verified 07/12/20 05:04 Home Medications Medication Instructions Recorded Confirmed Last Taken Type Gabapentin 300 mg PO TID 07/12/20 07/12/20 07/11/20 History Aspirin 325 mg PO QDAY 07/13/20 07/13/20 Unknown History Atorvastatin [Lipitor] 80 mg PO DAILY 07/13/20 07/13/20 Unknown History HYDROcodone/ACETAMINOPHEN 1 each PO TID 07/13/20 07/13/20 Unknown History [Hydrocodone-Acetamin 7.5-300] Insulin Glargine [Lantus VIAL] 32 units SQ HS 07/13/20 07/13/20 Unknown History Lutein 20 mg PO DAILY 07/13/20 07/13/20 Unknown History NIFEdipine [Nifedipine ER] 60 mg PO DAILY 07/13/20 07/13/20 Unknown History SUMAtriptan succinate [SUMAtriptan 100 mg PO DAILY 07/13/20 07/13/20 Unknown History Succinate] Sertraline [Zoloft] 100 mg PO QDAY 07/13/20 07/13/20 Unknown History levETIRAcetam [Keppra TAB] 500 mg PO BID 07/13/20 07/13/20 Unknown History Acetaminophen [Acetaminophen TAB] 650 mg PO Q4H PRN tablet 07/19/20 Unknown Rx AtorvaSTATin [Lipitor] 80 mg PO QHS #30 tablet 07/19/20 Unknown Rx Docusate Sodium [Colace CAP] 100 mg PO BID capsule 07/19/20 Unknown Rx ISOSORBIDE MONOnitrate [Imdur ER] 60 mg PO QDAY #30 tablet 07/19/20 Unknown Rx Metoprolol [Lopressor TAB] 25 mg PO BID #60 tablet 07/19/20 Unknown Rx Sennosides Tab [Senokot] 8.6 mg PO Q12HR tablet 07/19/20 Unknown Rx amLODIPine 5 mg PO QDAY #30 tablet 07/19/20 Unknown Rx cephALEXin [Keflex] 500 mg PO Q6HR #12 capsule 07/19/20 Unknown Rx hydrALAZINE [Apresoline TAB] 50 mg PO Q8HR #240 tablet 07/19/20 Unknown Rx oxyCODONE /ACETAMINOPHEN [Percocet 1 tab PO Q6H PRN tablet 07/19/20 Unknown Rx 5/325 mg] traMADoL [Ultram 50 MG tab] 50 mg PO Q6HR PRN #5 tablet 07/19/20 Unknown Rx Active Meds: Active Medications Acetaminophen (Acetaminophen 325 Mg Tab) 650 mg PO Q4H PRN PRN Reason: Pain MILD(1-3)/Fever >100.5/FERNANDEZ Hydrocodone Bitart/Acetaminophen (Hydrocodone/Acetaminophen 7.5-325mg Tab) 1 each PO TID [facility] Aspirin (Aspirin 325 Mg Tab) 325 mg PO QDAY [facility] Atorvastatin Calcium (Atorvastatin 40 Mg Tab) 80 mg PO QHS [facility] Diltiazem HCl (Diltiazem 60 Mg Tab) 60 mg PO Q6HR [facility] Last Admin: 02/05/21 05:09 Dose: 60 mg Documented by: Docusate Sodium (Docusate Sodium 100 Mg Cap) 100 mg PO BID [facility] Gabapentin (Gabapentin 300 Mg Cap) 300 mg PO TID [facility] Heparin Sodium (Porcine) (Heparin 5,000 Unit/1 Ml Vial) 5,000 unit SUB-Q Q12HR [facility] Last Admin: 02/05/21 01:22 Dose: 5,000 unit Documented by: Insulin Glargine (Insulin Glargine 100 Units/Ml) 32 units SUB-Q HS [facility] Isosorbide Mononitrate (Isosorbide Mononitrate Er 60 Mg Tab) 60 mg PO QDAY [facility] Levetiracetam (Levetiracetam 500 Mg Tab) 500 mg PO BID [facility] Last Admin: 02/05/21 01:24 Dose: 500 mg Documented by: Metoclopramide HCl (Metoclopramide 10 Mg/2 Ml Inj) 5 mg IV Q6H PRN PRN Reason: Nausea And Vomiting Metoprolol Tartrate (Metoprolol Tartrate 25 Mg Tab) 25 mg PO BID [facility] Last Admin: 02/05/21 01:23 Dose: 25 mg Documented by: Morphine Sulfate (Morphine 2 Mg/1 Ml Inj) 2 mg IV Q4H PRN PRN Reason: Pain, Moderate (4-6) Ondansetron HCl (Ondansetron 4 Mg/2 Ml Inj) 4 mg IV Q8H PRN PRN Reason: Nausea And Vomiting Oxycodone/Acetaminophen (Oxycodone /Acetaminophen 5-325mg Tab) 1 tab PO Q6H PRN PRN Reason: Pain, Moderate (4-6) Senna (Sennosides 8.6 Mg Tab) 8.6 mg PO Q12HR [facility] Sertraline HCl (Sertraline 100 Mg Tab) 100 mg PO QDAY [facility] Sodium Chloride (Sodium Chloride 0.9% 10 Ml Flush Syringe) 10 ml IV BID [facility] Sodium Chloride (Sodium Chloride 0.9% 10 Ml Flush Syringe) 10 ml IV PRN PRN PRN Reason: LINE FLUSH Sumatriptan Succinate (Sumatriptan Succinate 50 Mg Tab) 100 mg PO DAILY PRN PRN Reason: Migraine Headache Review of Systems All systems: negative Physical Examination - Vital Signs Vital Signs: Vital Signs Temp Pulse Resp BP Pulse Ox 98.3 F 134 H 20 163/112 98 02/04/21 14:50 02/04/21 14:50 02/04/21 14:50 02/04/21 14:50 02/04/21 14:50 - Constitutional General appearance: comfortable, other (anxious) - EENT EENT: Present: PERRL, mucous membranes moist - Respiratory Respiratory: Present: chest non-tender, lungs clear - Cardiovascular Cardiovascular: Present: no murmurs, other (irregualr heart rate ) Extremities: Present: no peripheral edema bilatateraly, no clubbing, cyanosis - Gastrointestinal Gastrointestinal: Present: normoactive bowel sounds - Integumentary Integumentary: Present: normal - Neurologic Cranial nerve examination: PERRL, EOMI, intact Speech examination: intact Sensorimotor examination: intact Detailed motor examination: grossly full strength in Detailed sensory examination: intact Reflex and gait examination: intact Cerebellar examination: other (gait not done, can do finger to nose with no difficulty) - Psychiatric Psychiatric: Present: other (anxious) Results - Laboratory Findings CBC and BMP: 02/04/21 15:13 02/04/21 15:13 Abnormal Lab Findings: Abnormal Labs 02/04/21 02/04/21 02/04/21 15:13 15:13 15:13 MCH 26 L RDW 16.8 H [place] % (Auto) 9.4 H Eos % (Auto) 8.3 H Eos # (Auto) 0.5 H Chloride 108.6 H BUN 31 H Creatinine 1.8 H Glucose 162 H POC Glucose Total Creatine Kinase 240 H Troponin T 0.042 H Albumin 3.6 L HDL Cholesterol 32 L 02/04/21 02/04/21 02/04/21 15:25 17:43 20:09 MCH RDW [place] % (Auto) Eos % (Auto) Eos # (Auto) Chloride BUN Creatinine Glucose POC Glucose Total Creatine Kinase 240 H Troponin T 0.036 H 0.033 H Albumin HDL Cholesterol 02/04/21 23:00 MCH RDW [place] % (Auto) Eos % (Auto) Eos # (Auto) Chloride BUN Creatinine Glucose POC Glucose 128 H Total Creatine Kinase Troponin T Albumin HDL Cholesterol Assessment and Plan # Assessment Impression: # Ischemic Stroke (Acute), New stroke on outpatient MRI.-- film is not available -Ct brain here is unremarkable. -Multiple stroke risk factors including Afib (not anticoagulated), -need copy of MRI film or repeat MRI -MRA brain and neck--Cr#1.8 # DM -A1C is pending -BS is wnl # HTN -InItial BP is 166/92 -Allow for permissive HTN <220/110 for 24hours -then BP gradually 150/80 #HLD. -LDL#67 -Lipitor 40 mg # Elevated cardiac enzymes -serial cardiac enzymes 0.042 -Echo -EKG -cardiology -Possibly related VCA # New onst AF -desk monitor -ECHO -SC heparine -ASA 325 mg -Consider AC with 3-7 days if no contraindications # Recurrent headache -morbid obesity -need eye exam r/o pseudotumor cerebri -complainig of blurred vison #Possible underlying anxiety add to her problem -consider celexa 20 mg daily -assurance # unsteady gait - related to PN and underlying DM -Check A1C - Cut down neurontine to 300 mg qhs due to side effect of increase weight and add to unsteady gait # Possible underlying sleep apnea - contribute to risk of BP and CVA - need weight loss -need Cpap # Renal Insuff -cr.#1.8 PLAN 1- pt. is not a candidate for TPA nor thrombectomy symptom onset not clear 2- A1C and LDL 3-MRA brain and neck 4- Echo cardiogram 5- desk monitor 6- ASA 325 mg daily plus lipitor 40 mg daily,Sq heparine 7- Pt/ST 8-cardiac follow 9-cut down neurontine 300 mg qhs 10-optic disc evaluation when possible 11-celexa 20 mg daily 12-start AC within 4-7 days after acute CVA 13-Pt/ST evaluate will follow along
[2021-02-05] MEDS ORDERED: HYDROCODONE PO SCH (08:00)
[2021-02-05] MEDS ORDERED: NON-FORMULARY EACH (Gabapentin 300 MG) PO SCH (08:00)
[2021-02-05] MEDS ORDERED: ACETAMINOPHEN PO SCH (08:00)
[2021-02-05] MEDS ORDERED: [UNRECOGNIZED DRUG - OTHER] PO SCH (08:00)
[2021-02-05] MEDS ORDERED: LUTEIN 20 MG PO SCH (10:00)
[2021-02-05] MEDS ORDERED: ASPIRIN 325 MG TAB PO SCH (10:00)
[2021-02-05] MEDS ORDERED: SUMATRIPTAN SUCCINATE 100 MG PO SCH (10:00)
[2021-02-05] MEDS: SERTRALINE 100 MG TAB PO SCH (12:09)
[2021-02-05] MEDS: ASPIRIN 325 MG TAB PO SCH (12:11)
[2021-02-05] MEDS: HYDROcodone/ACETAMINOPHEN 7.5-325MG TAB PO SCH ×3 (12:11→22:34)
[2021-02-05] MEDS: GABAPENTIN 300 MG CAP PO SCH ×3 (12:11→22:34)
[2021-02-05] MEDS: DOCUSATE SODIUM 100 MG CAP PO SCH ×2 (12:12→22:31)
[2021-02-05] MEDS: SENNOSIDES 8.6 MG TAB PO SCH ×2 (12:21→22:31)
--- NOTE | 2021-02-05 12:32 | Vascular Lab Report ---
Bilateral Carotid Doppler duplex Ultrasound INDICATION : stroke TECHNIQUE: Grayscale and color Doppler imaging performed through the neck. COMPARISON: None FINDINGS: Right: There is no significant atherosclerotic disease. Peak systolic velocity in the CCA is 69 cm/ s with end-diastolic velocity of 16 cm/s. Peak systolic velocity in the proximal ICA is 81 cm/s with end-diastolic velocity of 21 cm/s. ICA to CCA ratio is 0.73. There is antegrade flow in the ECA and the vertebral artery. Left: There is no significant atherosclerotic disease. Peak systolic velocity in the CCA is 109 cm/s with end-diastolic velocity of 19 cm/s. Peak systolic velocity in the proximal ICA is 71 cm/s with en d-diastolic velocity of 22 cm/s. ICA to CCA ratio is less than 2. There is antegrade flow in the ECA and the vertebral artery. IMPRESSION: No hemodynamically significant stenosis by NASCET criteria. Signer Name: Marquez Krishnamurthy MD Signed: 02/05/2021 12:27 PM Workstation Name: [id number]
--- NOTE | 2021-02-05 13:16 | Magnetic Resonance Report ---
MRI BRAIN WITHOUT CONTRAST INDICATION / CLINICAL INFORMATION: stroke. TECHNIQUE: Multiplanar, multisequence MR images of the brain were obtained. COMPARISON: Head CT 02/04/2021 FINDINGS: BRAIN / INTRACRANIAL CONTENTS: A small focus of restricted diffusion is observed adjacent to the atria of the right lateral ventricl e. No additional area of restricted diffusion is identified in the right centrum semiovale. These lik edmond represent the sequelae of recent small deep infarctions. Multiple remote small deep infarctions a re observed in a bilateral gangliocapsular distribution and within the thalamic bilaterally. Encephal omalacia is observed in the medial aspect of the right occipital lobe consistent with remote right PC A infarction. Remote small cerebellar infarction is seen in the anterior aspect of the right cerebell ar hemisphere. Evaluation of cardiac T2*weighted sequences is remarkable for remote blood breakdown products in the right parietal operculum secondary to remote small deep hemorrhagic infarction. Moderate parenchymal volume loss is demonstrated. Dilatation of the cortical sulci and ventricular sy stem is noted. This is in excess of that expected for the patient's stated age of 65 years. Extensive periventricular and deep white matter hyperintensities are noted consistent with advanced microvascu lar ischemic changes. There is no mass effect. No evidence of intracranial hemorrhage or extra-axial fluid collection is seen. The brainstem has an unremarkable appearance. CRANIOCERVICAL JUNCTION: No abnormalities are identified at the craniocervical junction. VASCULAR FLOW-VOIDS: Normal flow-voids are present within the major intracranial vessels. ORBITS: The orbits have an unremarkable appearance. SINUSES / MASTOIDS: There is no indication of inflammatory disease in the paranasal sinuses or mastoi d air cells. IMPRESSION: 1. There is evidence of 2 recent, small deep infarctions in the right cerebral hemisphere as describe d above. 2. Advanced parenchymal volume loss and extensive microvascular ischemic change. 3. Remote bilateral thalamic and bilateral gangliocapsular small deep infarctions. Signer Name: Ariel Bravo MD Signed: 02/05/2021 1:12 PM Workstation Name: [id number]
[2021-02-05] MEDS: INSULIN GLARGINE 100 UNITS/ML SUB-Q SCH (22:35)
[2021-02-06] MEDS: dilTIAZem 60 MG TAB PO SCH ×4 (01:18→17:39)
--- NOTE | 2021-02-06 01:58 | Progress Note ---
Assessment and Plan - Patient Problems (1) Acute CVA (cerebrovascular accident) Current Visit: Yes Status: Acute Plan to address problem: CVA protocol Neuro consult requested High dose statin started (2) VAL (acute kidney injury) Current Visit: Yes Status: Acute Plan to address problem: IV fluids for now Nephrology consult (3) Atrial fibrillation Current Visit: Yes Status: Chronic Qualifiers: Atrial fibrillation type: unspecified Qualified Code(s): I48.91 - Unspecified atrial fibrillation (4) CAD (coronary artery disease) Current Visit: Yes Status: Chronic Qualifiers: Coronary Disease-Associated Artery/Lesion type: [place] artery [place] vs. transplanted heart: [place] heart Plan to address problem: Continue isosorbide mononitrate (5) Hyperlipidemia Current Visit: Yes Status: Chronic Qualifiers: Hyperlipidemia type: mixed hyperlipidemia Qualified Code(s): E78.2 - Mixed hyperlipidemia Plan to address problem: Continue statins (6) Hypertension Current Visit: Yes Status: Chronic Qualifiers: Hypertension type: essential hypertension Qualified Code(s): I10 - Essential (primary) hypertension Plan to address problem: Continue antihypertensives (7) Vascular dementia Current Visit: Yes Status: Chronic Qualifiers: Dementia behavioral disturbance: without behavioral disturbance Qualified Code(s): F01.50 - Vascular dementia without behavioral disturbance Plan to address problem: Secondary to multiple strokes (8) DVT prophylaxis Current Visit: Yes Status: Acute Plan to address problem: On heparin and GI prophylaxis Subjective Date of service: 02/05/21 Principal diagnosis: Acute CVA Interval history: This is a 65-year-old female. The patient has a complex past medical history, including obesity, cholelithiasis, hydronephrosis, status post stent with stent removal, ejection fraction 55 to 60%, obesity, hypertension, seizure, stroke x2, with reported residual right-sided weakness, myocardial infarction, obstructive sleep apnea with home CPAP, and diabetes. She is sent to the emergency room by an outpatient neurology physician, shirley Olivera Apparently, the patient has been having complaints of headaches and feeling like she has been having an unsteady gait, since January 2020. An outpatient MRI was obtained today, through [facility] imaging services, and was reportedly found to have a stroke or subacute stroke of unknown duration or chronicity, but she was referred to the emergency room for evaluation. The patient complains of mild headache. She has chronic blurry vision. She denies chest pain. She has chronic shortness of breath. She denies hematemesis and bright red blood per rectum. She denies urinary symptoms. She denies cough. She complains of general weakness, but denies new/different weakness. 02/05/2021 Neurology consult appreciated MRI consistent with right CVA with left-sided weakness Objective - Constitutional Vitals: Vital Signs - 12hr 02/05/21 02/05/21 02/05/21 15:50 17:19 17:51 Temperature 97.5 F L Pulse Rate 92 H 60 60 Respiratory 15 Rate Blood Pressure 106/64 106/64 O2 Sat by Pulse 92 Oximetry 02/05/21 02/05/21 02/05/21 19:55 20:15 22:34 Temperature 98.8 F Pulse Rate 64 64 Respiratory 20 18 Rate Blood Pressure 98/65 O2 Sat by Pulse 96 Oximetry 02/05/21 23:36 Temperature 98.3 F Pulse Rate 67 Respiratory 20 Rate Blood Pressure 105/67 O2 Sat by Pulse 93 Oximetry General appearance: Present: no acute distress, well-nourished - EENT Eyes: PERRL, EOM intact ENT: hearing intact, clear oral mucosa Ears: bilateral: normal - Neck Neck: supple, normal ROM - Respiratory Respiratory effort: normal Respiratory: bilateral: CTA - Breasts Breasts: normal - Cardiovascular Heart rate: 78 Rhythm: regular Heart Sounds: Present: S1 & S2. Absent: gallop, rub Extremities: pulses intact, No edema, normal color, Full ROM - Gastrointestinal General gastrointestinal: Present: soft, non-tender, non-distended, normal bowel sounds - Genitourinary Female genitourinary: normal - Integumentary Integumentary: clear, warm, dry - Musculoskeletal Musculoskeletal: left sided weakness - Neurologic Neurologic: focal deficits (Left upper extremity and left lower extremity weakness present.), moves all extremities - Psychiatric Psychiatric: memory intact, appropriate mood/affect, intact judgment & insight - Allied health notes Allied health notes reviewed: nursing, case management - Labs CBC & Chem 7: 02/07/21 13:48 02/08/21 05:29 HEART Score - HEART Score Troponin: Troponin T 0.033 ng/mL (0.00-0.029) H 02/04/21 20:09
[2021-02-06] MEDS: levETIRAcetam 500 MG TAB PO SCH ×2 (09:40→22:19)
[2021-02-06] MEDS: GABAPENTIN 300 MG CAP PO SCH ×3 (09:40→22:28)
[2021-02-06] MEDS: HYDROcodone/ACETAMINOPHEN 7.5-325MG TAB PO SCH ×3 (09:40→22:18)
[2021-02-06] MEDS: SENNOSIDES 8.6 MG TAB PO SCH ×2 (09:41→21:45)
[2021-02-06] MEDS: METOPROLOL TARTRATE 25 MG TAB PO SCH ×2 (09:41→22:19)
[2021-02-06] MEDS: DOCUSATE SODIUM 100 MG CAP PO SCH ×2 (09:41→21:45)
[2021-02-06] MEDS: ASPIRIN 325 MG TAB PO SCH (09:41)
[2021-02-06] MEDS: SERTRALINE 100 MG TAB PO SCH (09:41)
[2021-02-06] MEDS: HEPARIN 5,000 UNIT/1 ML VIAL SUB-Q SCH ×2 (09:42→22:18)
--- NOTE | 2021-02-06 11:38 | Progress Note ---
Assessment and Plan # Assessment Impression: # Ischemic Stroke (Acute), New stroke on outpatient MRI.-- - Had MRI here is remarkable for right cerebral infarct X2 emboli plus BG remote infarct -Ct brain here is unremarkable. -Multiple stroke risk factors including Afib (not anticoagulated), -MRA brain and neck--Cr#1.8 # DM -A1C is pending -BS is wnl # HTN -InItial BP is 166/92--- today 98/65 -Allow for permissive HTN <220/110 for 24hours -then BP gradually 150/80 #HLD. -LDL#67 -Lipitor 40 mg # Elevated cardiac enzymes -serial cardiac enzymes 0.042 -Echo,EF#45-50% -EKG -cardiology -Possibly related CVA # New onst AF -bus monitor -ECHO Ef#55-60% -SC heparine -ASA 325 mg -Consider AC with 3-7 days if no contraindications # Recurrent headache -morbid obesity -finding is suggestive of migraine recurrent taking imitex 2-3 times a week - consider Topamax 50 mg QHS and neurology follow up #Possible underlying anxiety add to her problem -consider celexa 20 mg daily -assurance # unsteady gait - related to PN and underlying DM -Check A1C ? - Cut down neurontine to 300 mg qhs due to side effect of increase weight and add to unsteady gait # Possible underlying sleep apnea - contribute to risk of BP and CVA - need weight loss -need Cpap # Renal Insuff -cr.#1.8 PLAN 1- pt. is not a candidate for TPA nor thrombectomy symptom onset not clear 2- A1C and LDL 3-MRA brain and neck pending 4- Echo cardiogram,EF#55-60% 5- bus monitor 6- ASA 325 mg daily plus lipitor 40 mg daily,Sq heparine 7- Pt/ST 8-cardiac follow 9-cut down neurontine 300 mg qhs 10-topamax 50 mg qhs 11-celexa 20 mg daily 12-start AC within 4-7 days after acute CVA 13-Pt/ST evaluate will sign off Subjective Date of service: 02/06/21 Principal diagnosis: confusion, headache Interval history: doing better today , still with intermittent haedache and sensitivity to light and left side weakness had MRI brain done Objective - Vital Sign Vital Signs - 12hr 02/05/21 02/06/21 02/06/21 23:36 04:16 09:10 Temperature 98.3 F 98.1 F 97.5 F L Pulse Rate 67 66 84 Respiratory 20 18 18 Rate Blood Pressure 105/67 115/83 115/72 O2 Sat by Pulse 93 95 94 Oximetry 02/06/21 02/06/21 09:40 09:41 Temperature Pulse Rate 67 Respiratory 17 Rate Blood Pressure 122/61 O2 Sat by Pulse Oximetry - General Apperance Constitutional: comfortable - EENT EENT: PERRL - Respiratory Respiratory: chest non-tender, lungs clear - Cardiovascular Cardiovascular: other (irregular) Extremities: no peripheral edema bilat, no clubbing, cyanosis - Gastrointestinal Gastrointestinal: normoactive bowel sounds - Integumentary Integumentary: normal - Neurologic Cranial nerve examination: PERRL, EOMI, intact Speech examination: intact Detailed motor examination: other (left upper and to lesser extent lower side weakness 4-/5) - Laboratory Findings CBC and BMP: 02/04/21 15:13 02/04/21 15:13 Abnormal Lab Findings: Abnormal Labs 02/04/21 02/04/21 02/04/21 15:13 15:13 15:13 MCH 26 L RDW 16.8 H Wolfe % (Auto) 9.4 H Eos % (Auto) 8.3 H Eos # (Auto) 0.5 H Chloride 108.6 H BUN 31 H Creatinine 1.8 H Glucose 162 H POC Glucose Total Creatine Kinase 240 H Troponin T 0.042 H Albumin 3.6 L HDL Cholesterol 32 L 02/04/21 02/04/21 02/04/21 15:25 17:43 20:09 MCH RDW Wolfe % (Auto) Eos % (Auto) Eos # (Auto) Chloride BUN Creatinine Glucose POC Glucose Total Creatine Kinase 240 H Troponin T 0.036 H 0.033 H Albumin HDL Cholesterol 02/04/21 23:00 MCH RDW Wolfe % (Auto) Eos % (Auto) Eos # (Auto) Chloride BUN Creatinine Glucose POC Glucose 128 H Total Creatine Kinase Troponin T Albumin HDL Cholesterol
--- NOTE | 2021-02-06 16:05 | Magnetic Resonance Report ---
MRA NECK 02/06/2021 INDICATION / CLINICAL INFORMATION: encephalopathy ,abnormal CT Carotid dilatation. TECHNIQUE: Routine MRA of the neck are performed. 3-D/MIP reformats postprocessed. Percentage stenosis is deter mined by direct quantitative measurements of distal internal carotid artery diameter compared with no rmal reference segments or by criteria similar to NASCET where applicable. COMPARISON: None available. FINDINGS: Unenhanced MR angiographic images of the neck were obtained. 3D/MIP reformats were post-processed. Image quality is limited on this noncontrast technique due to expected patient motion artifact. Carotid bifurcations: No significant abnormality. Common carotid arteries: No significant abnormality. Cervical internal carotid arteries: Vascular tortuosity is noted bilaterally. Cervical vertebral arteries: No significant abnormality. Visible aortic arch: Not visualized on this exam. IMPRESSION: No definite evidence of abnormality. Signer Name: Neftaly Shaffer MD Signed: 02/06/2021 4:01 PM Workstation Name: [id number]
--- NOTE | 2021-02-06 16:08 | Magnetic Resonance Report ---
MRA HEAD 02/06/2021 INDICATION / CLINICAL INFORMATION: CVA. TECHNIQUE: Routine MRA of the head is performed. 3-D/MIP reformats postprocessed. COMPARISON: None available. FINDINGS: Patient motion artifact is present on this exam. MRA HEAD: Intracranial internal carotid arteries: What artifact noted on the reconstructed images. This results in signal loss along the course of some of the MCA branches on the right side. Anterior cerebral arteries: No significant abnormality. Middle cerebral arteries: No significant abnormality. Intracranial vertebral arteries: No significant abnormality. Basilar artery: No significant abnormality. Posterior cerebral arteries: No significant abnormality. IMPRESSION: No significant abnormality. Motion artifact present. Signer Name: Neftaly Shaffer MD Signed: 02/06/2021 4:03 PM Workstation Name: [id number]
[2021-02-06] MEDS ORDERED: GABAPENTIN 300 MG CAP PO SCH (18:00)
[2021-02-06] MEDS: INSULIN GLARGINE 100 UNITS/ML SUB-Q SCH (22:17)
[2021-02-06] MEDS: TOPIRAMATE TAB 25 MG TAB PO SCH (22:21)
[2021-02-07] MEDS: dilTIAZem 60 MG TAB PO SCH ×3 (00:11→12:15)
--- NOTE | 2021-02-07 01:08 | Progress Note ---
Assessment and Plan - Patient Problems (1) Acute CVA (cerebrovascular accident) Current Visit: Yes Status: Acute Plan to address problem: CVA protocol Neuro consult requested High dose statin started (2) VAL (acute kidney injury) Current Visit: Yes Status: Acute Plan to address problem: IV fluids for now Nephrology consult (3) CAD (coronary artery disease) Current Visit: Yes Status: Chronic Qualifiers: Coronary Disease-Associated Artery/Lesion type: [place] artery [place] vs. transplanted heart: [place] heart Plan to address problem: Continue isosorbide mononitrate (4) Hyperlipidemia Current Visit: Yes Status: Chronic Qualifiers: Hyperlipidemia type: mixed hyperlipidemia Qualified Code(s): E78.2 - Mixed hyperlipidemia Plan to address problem: Continue statins (5) Hypertension Current Visit: Yes Status: Chronic Qualifiers: Hypertension type: essential hypertension Qualified Code(s): I10 - Essential (primary) hypertension Plan to address problem: Continue antihypertensives (6) Vascular dementia Current Visit: Yes Status: Chronic Qualifiers: Dementia behavioral disturbance: without behavioral disturbance Qualified Code(s): F01.50 - Vascular dementia without behavioral disturbance Plan to address problem: Secondary to multiple strokes (7) DVT prophylaxis Current Visit: Yes Status: Acute Plan to address problem: On heparin and GI prophylaxis (8) Discharge planning issues Current Visit: Yes Status: Acute Plan to address problem: Discussed with case management about discharge planning Case management working on subacute rehab versus acute rehab Subjective Date of service: 02/06/21 Principal diagnosis: Acute CVA Interval history: This is a 65-year-old female. The patient has a complex past medical history, including obesity, cholelithiasis, hydronephrosis, status post stent with stent removal, ejection fraction 55 to 60%, obesity, hypertension, seizure, stroke x2, with reported residual right-sided weakness, myocardial infarction, obstructive sleep apnea with home CPAP, and diabetes. She is sent to the emergency room by an outpatient neurology physician, shirley Olivera Apparently, the patient has been having complaints of headaches and feeling like she has been having an unsteady gait, since January 2020. An outpatient MRI was obtained today, through [facility] imaging services, and was reportedly found to have a stroke or subacute stroke of unknown duration or chronicity, but she was referred to the emergency room for evaluation. The patient complains of mild headache. She has chronic blurry vision. She denies chest pain. She has chronic shortness of breath. She denies hematemesis and bright red blood per rectum. She denies urinary symptoms. She denies cough. She complains of general weakness, but denies new/different weakness. 02/05/2021 Neurology consult appreciated MRI consistent with right CVA with left-sided weakness 02/06/2021 Acute CVA Left-sided weakness persists Creatinine worsening Objective - Constitutional Vitals: Vital Signs - 12hr 02/06/21 02/06/21 02/06/21 13:09 14:00 15:57 Temperature 97.4 F L Pulse Rate 84 69 Respiratory 17 18 Rate Blood Pressure 119/57 O2 Sat by Pulse 96 93 Oximetry 02/06/21 02/06/21 02/06/21 17:39 19:35 20:52 Temperature 98.0 F Pulse Rate 68 60 68 Respiratory 19 Rate Blood Pressure 115/72 110/67 O2 Sat by Pulse 91 Oximetry 02/06/21 23:48 Temperature 98.5 F Pulse Rate 76 Respiratory 18 Rate Blood Pressure 123/72 O2 Sat by Pulse 93 Oximetry General appearance: Present: no acute distress, well-nourished - EENT Eyes: PERRL, EOM intact ENT: hearing intact, clear oral mucosa Ears: bilateral: normal - Neck Neck: supple, normal ROM - Respiratory Respiratory effort: normal Respiratory: bilateral: CTA - Breasts Breasts: normal - Cardiovascular Heart rate: 78 Rhythm: regular Heart Sounds: Present: S1 & S2. Absent: gallop, rub Extremities: pulses intact, No edema, normal color, Full ROM Extremity abnormal: other - Gastrointestinal General gastrointestinal: Present: soft, non-tender, non-distended, normal bowel sounds - Genitourinary Female genitourinary: normal - Integumentary Integumentary: clear, warm, dry - Musculoskeletal Musculoskeletal: left sided weakness - Neurologic Neurologic: CNII-XII intact, focal deficits (Left hemiplegia present.) - Psychiatric Psychiatric: other (Alert but lethargic) - Labs CBC & Chem 7: 02/07/21 13:48 02/08/21 05:29 Labs: Abnormal lab results 02/06/21 02/06/21 Range/Units 15:13 21:44 POC Glucose 219 H (70-105) mg/dL Hemoglobin A1c 7.0 H (4-6) % HEART Score - HEART Score Troponin: Troponin T 0.033 ng/mL (0.00-0.029) H 02/04/21 20:09
[2021-02-07] MEDS: HYDROcodone/ACETAMINOPHEN 7.5-325MG TAB PO SCH ×3 (09:15→21:28)
[2021-02-07] MEDS: HEPARIN 5,000 UNIT/1 ML VIAL SUB-Q SCH ×2 (09:38→21:30)
[2021-02-07] MEDS: DOCUSATE SODIUM 100 MG CAP PO SCH ×2 (09:38→21:27)
[2021-02-07] MEDS: CITALOPRAM 20 MG TAB PO SCH (09:38)
[2021-02-07] MEDS: SENNOSIDES 8.6 MG TAB PO SCH ×2 (09:38→21:30)
[2021-02-07] MEDS: METOPROLOL TARTRATE 25 MG TAB PO SCH ×2 (09:38→21:27)
[2021-02-07] MEDS: SERTRALINE 100 MG TAB PO SCH (09:38)
[2021-02-07] MEDS: levETIRAcetam 500 MG TAB PO SCH ×2 (09:38→21:27)
[2021-02-07] MEDS: ASPIRIN 325 MG TAB PO SCH (09:38)
--- NOTE | 2021-02-07 10:57 | Progress Note ---
Assessment and Plan # Assessment Impression: # Ischemic Stroke (Acute), New stroke on outpatient MRI.-- - Had MRI here is remarkable for right cerebral infarct X2 emboli plus BG remote infarct -Ct brain here is unremarkable. -Multiple stroke risk factors including Afib (not anticoagulated), -MRA brain and neck--are unremarkable Cr#1.8 # DM -A1C is #7 -BS is wnl # HTN -InItial BP is 166/92--- today 98/65 -Allow for permissive HTN <220/110 for 24hours -then BP gradually 150/80 #HLD. -LDL#67 -Lipitor 40 mg # Elevated cardiac enzymes -serial cardiac enzymes 0.042 -Echo,EF#45-50% -EKG -cardiology -Possibly related CVA # New onst AF -monitoring manager -ECHO Ef#55-60% -SC heparine -ASA 325 mg -Consider AC with 3-7 days if no contraindications ---? tomorrow # Recurrent headache -morbid obesity -finding is suggestive of migraine recurrent taking imitex 2-3 times a week - On Topamax 50 mg QHS headache is better #Possible underlying anxiety add to her problem -consider celexa 20 mg daily -assurance # unsteady gait - related to PN and underlying DM -Check A1C #7 - Cut down neurontine to 300 mg qhs due to side effect of increase weight and add to unsteady gait # Possible underlying sleep apnea - contribute to risk of BP and CVA - need weight loss -need Cpap -- she had machine at home she like to use here if possible # Renal Insuff -cr.#1.8 # Hx of seizure -According to pt. she had one event last january 2020 of syncopy after cardiac event ? not clear if seizure and she was started on Keppra been taking for over a year with no event never had seizure in her life --- she does not drive -- lives with her sister -will schadual EEG -consider cut down Keppra to 250 mg bid and neurology follow up -seizure precaution PLAN 1- pt. is not a candidate for TPA nor thrombectomy symptom onset not clear 2- A1C and LDL noted 3-MRA brain and neck unremarkable 4- Echo cardiogram,EF#55-60% 5- monitoring manager 6- ASA 325 mg daily plus lipitor 40 mg daily,Sq heparine --can be AC po tomorrow 7- Pt/ST 8-cardiac follow 9-cut down neurontine 300 mg qhs 10-topamax 50 mg qhs 11-celexa 20 mg daily 12-start AC within 4-7 days after acute CVA--- can be started tomorrow 13-Pt/ST evaluate will sign off Subjective Principal diagnosis: confusion, headache Interval history: doing better today , improved haedache and left side weakness had MRI brain done Objective - Vital Sign Vital Signs - 12hr 02/06/21 02/07/21 02/07/21 23:48 03:20 03:44 Temperature 98.5 F 97.9 F Pulse Rate 76 84 Respiratory 18 19 Rate Blood Pressure 123/72 117/70 O2 Sat by Pulse 93 96 95 Oximetry 02/07/21 02/07/21 02/07/21 08:37 09:15 09:38 Temperature 97.8 F Pulse Rate 69 84 Respiratory 20 16 Rate Blood Pressure 126/76 125/67 O2 Sat by Pulse 94 Oximetry - General Apperance Constitutional: comfortable - EENT EENT: PERRL, mucous membranes moist, mucous membranes dry, hearing intact - Respiratory Respiratory: chest non-tender, lungs clear, normal breath sounds - Cardiovascular Cardiovascular: other (AF ) Extremities: no peripheral edema bilat - Gastrointestinal Gastrointestinal: normoactive bowel sounds - Integumentary Integumentary: normal - Neurologic Cranial nerve examination: PERRL, EOMI, intact Speech examination: intact Detailed motor examination: other Detailed sensory examination: intact - Laboratory Findings CBC and BMP: 02/04/21 15:13 02/04/21 15:13 Abnormal Lab Findings: Abnormal Labs 02/04/21 02/04/21 02/04/21 15:13 15:13 15:13 MCH 26 L RDW 16.8 H Brooks % (Auto) 9.4 H Eos % (Auto) 8.3 H Eos # (Auto) 0.5 H Chloride 108.6 H BUN 31 H Creatinine 1.8 H Glucose 162 H POC Glucose Hemoglobin A1c Total Creatine Kinase 240 H Troponin T 0.042 H Albumin 3.6 L HDL Cholesterol 32 L 02/04/21 02/04/21 02/04/21 15:25 17:43 20:09 MCH RDW [place] % (Auto) Eos % (Auto) Eos # (Auto) Chloride BUN Creatinine Glucose POC Glucose Hemoglobin A1c Total Creatine Kinase 240 H Troponin T 0.036 H 0.033 H Albumin HDL Cholesterol 02/04/21 02/06/21 02/06/21 23:00 15:13 21:44 MCH RDW [place] % (Auto) Eos % (Auto) Eos # (Auto) Chloride BUN Creatinine Glucose POC Glucose 128 H 219 H Hemoglobin A1c 7.0 H Total Creatine Kinase Troponin T Albumin HDL Cholesterol
--- NOTE | 2021-02-07 11:38 | Electrocardiograph Report ---
[facility] Test Date: 2021-02-04 Test Time: 14:59:10 Pat Name: BEULAH LOWE Department: Room: A492 1 Gender: F Lead Bi Developer: : 1955 Requested By: MARGRET SCHULZ Order Number: [id number] Reading MD: Susan Topete Measurements Intervals Ashley Rate: 134 P: SD: QRS: -16 QRSD: 86 T: 121 QT: 319 QTc: 477 Interpretive Statements Rapid atrial fibrillation No previous ECG available for comparison Electronically Signed On 02-07-2021 11:38:04 EDT by Susan Topete
--- NOTE | 2021-02-07 11:54 | Consultation ---
History of Present Illness Consult date: 02/07/21 Requesting physician: RUIZ SIMMONS Consult reason: other (3 second pause) History of present illness: Pt is a 65-year-old AA female with a past medical hx of prior CVAs x 2 (w/residual left-sided weakness), CAD, LANNY, HTN, and DM2, who presented following an outpatient brain MRI, which revealed acute vs subacute ischemic CVA. Pt states the MRI was ordered in the setting of recurrent headaches and chronic blurry vision. Pt also reports progressive left-sided weakness over the past several weeks, worse than her baseline. Cardiology has been consulted for evaluation of a 3 second pause noted on telemetry. Tele reviewed - AF 70s this AM, several 3-4 second pauses noted in the setting of underlying AF. Pt denies chest pain, SOB, palpitations, dizziness, lightheadedness, or syncope. No additional cardiac complaints reported. TTE 06/2020 - mild-mod concentric LVH, EF 55-60%, impaired LV relaxation, trace AR. Lexiscan stress MPI 06/2020 - negative for ischemia, EF 62%. Past History Past Medical History: acute AL, CAD, diabetes, hypertension, migraines, seizures, stroke, other (LANNY) Past Surgical History: denies: valve replacement, CABG, PTCA Social history: denies: smoking, alcohol abuse Family history: hypertension Medications and Allergies Allergies Allergy/AdvReac Type Severity Reaction Status Date / Time No Known Allergies Allergy Verified 07/12/20 05:04 Home Medications Medication Instructions Recorded Confirmed Last Taken Type Gabapentin 300 mg PO TID 07/12/20 02/06/21 07/11/20 History Aspirin 325 mg PO QDAY 07/13/20 02/06/21 Unknown History Atorvastatin [Lipitor] 80 mg PO DAILY 07/13/20 02/06/21 Unknown History HYDROcodone/ACETAMINOPHEN 1 each PO TID 07/13/20 02/06/21 Unknown History [Hydrocodone-Acetamin 7.5-300] Sertraline [Zoloft] 100 mg PO QDAY 07/13/20 02/06/21 Unknown History levETIRAcetam [Keppra TAB] 500 mg PO BID 07/13/20 02/06/21 Unknown History ISOSORBIDE MONOnitrate [Imdur ER] 60 mg PO QDAY #30 tablet 07/19/20 02/06/21 Unknown Rx Metoprolol [Lopressor TAB] 25 mg PO BID #60 tablet 07/19/20 02/06/21 Unknown Rx hydrALAZINE [Apresoline TAB] 50 mg PO Q8HR #240 tablet 07/19/20 02/06/21 Unknown Rx Active Meds: Active Medications Acetaminophen (Acetaminophen 325 Mg Tab) 650 mg PO Q4H PRN PRN Reason: Pain MILD(1-3)/Fever >100.5/FERNANDEZ Hydrocodone Bitart/Acetaminophen (Hydrocodone/Acetaminophen 7.5-325mg Tab) 1 each PO TID [facility] Last Admin: 02/07/21 09:15 Dose: 1 each Documented by: Aspirin (Aspirin 325 Mg Tab) 325 mg PO QDAY [facility] Last Admin: 02/07/21 09:38 Dose: 325 mg Documented by: Atorvastatin Calcium (Atorvastatin 40 Mg Tab) 80 mg PO QHS [facility] Last Admin: 02/06/21 22:19 Dose: 80 mg Documented by: Citalopram Hydrobromide (Citalopram 20 Mg Tab) 20 mg PO QDAY [facility] Last Admin: 02/07/21 09:38 Dose: 20 mg Documented by: Diltiazem HCl (Diltiazem 60 Mg Tab) 60 mg PO Q6HR [facility] Last Admin: 02/07/21 06:33 Dose: 60 mg Documented by: Docusate Sodium (Docusate Sodium 100 Mg Cap) 100 mg PO BID [facility] Last Admin: 02/07/21 09:38 Dose: 100 mg Documented by: Gabapentin (Gabapentin 300 Mg Cap) 300 mg PO QPM [facility] Heparin Sodium (Porcine) (Heparin 5,000 Unit/1 Ml Vial) 5,000 unit SUB-Q Q12HR [facility] Last Admin: 02/07/21 09:38 Dose: 5,000 unit Documented by: Insulin Glargine (Insulin Glargine 100 Units/Ml) 32 units SUB-Q HS [facility] Last Admin: 02/06/21 22:17 Dose: 32 units Documented by: Isosorbide Mononitrate (Isosorbide Mononitrate Er 60 Mg Tab) 60 mg PO QDAY [facility] Last Admin: 02/07/21 09:38 Dose: 60 mg Documented by: Levetiracetam (Levetiracetam 500 Mg Tab) 500 mg PO BID [facility] Last Admin: 02/07/21 09:38 Dose: 500 mg Documented by: Metoclopramide HCl (Metoclopramide 10 Mg/2 Ml Inj) 5 mg IV Q6H PRN PRN Reason: Nausea And Vomiting Metoprolol Tartrate (Metoprolol Tartrate 25 Mg Tab) 25 mg PO BID [facility] Last Admin: 02/07/21 09:38 Dose: 25 mg Documented by: Morphine Sulfate (Morphine 2 Mg/1 Ml Inj) 2 mg IV Q4H PRN PRN Reason: Pain, Moderate (4-6) Ondansetron HCl (Ondansetron 4 Mg/2 Ml Inj) 4 mg IV Q8H PRN PRN Reason: Nausea And Vomiting Oxycodone/Acetaminophen (Oxycodone /Acetaminophen 5-325mg Tab) 1 tab PO Q6H PRN PRN Reason: Pain, Moderate (4-6) Senna (Sennosides 8.6 Mg Tab) 8.6 mg PO Q12HR [facility] Last Admin: 02/07/21 09:38 Dose: 8.6 mg Documented by: Sertraline HCl (Sertraline 100 Mg Tab) 100 mg PO QDAY [facility] Last Admin: 02/07/21 09:38 Dose: 100 mg Documented by: Sodium Chloride (Sodium Chloride 0.9% 10 Ml Flush Syringe) 10 ml IV BID [facility] Last Admin: 02/07/21 09:40 Dose: 10 ml Documented by: Sodium Chloride (Sodium Chloride 0.9% 10 Ml Flush Syringe) 10 ml IV PRN PRN PRN Reason: LINE FLUSH Sumatriptan Succinate (Sumatriptan Succinate 50 Mg Tab) 100 mg PO DAILY PRN PRN Reason: Migraine Headache Topiramate (Topiramate Tab 25 Mg Tab) 50 mg PO QHS [facility] Last Admin: 02/06/21 22:21 Dose: 50 mg Documented by: Review of Systems Constitutional: no fever, no chills, no sweats Eyes: bilateral: blurred vision (chronic) Ears, nose, mouth and throat: no nasal congestion, no sore throat Cardiovascular: no chest pain, no orthopnea, no palpitations, no rapid/irregular heart beat, no edema, no syncope, no lightheadedness, no shortness of breath, no dyspnea on exertion, no paroxysmal nocturnal dyspnea, no claudication Respiratory: no cough, no shortness of breath Gastrointestinal: no abdominal pain, no nausea, no vomiting, no diarrhea, no constipation Genitourinary Female: no pelvic pain, no flank pain, no dysuria Musculoskeletal: no neck stiffness, no neck pain, no myalgias Integumentary: no rash, no wounds Neurological: weakness (left-sided), headaches, balance difficulties, gait dysfunction, no head injury, no paralysis, no numbness, no tingling, no seizures, no syncope, no tremors, no vertigo, no aphasia, no change in mentation Endocrine: no cold intolerance, no heat intolerance Hematologic/Lymphatic: no easy bruising, no easy bleeding Allergic/Immunologic: no anaphylaxis Physical Examination Last Vital Signs Temp 97.8 F 02/07/21 11:52 Pulse 85 02/07/21 12:15 Resp 18 02/07/21 12:03 BP 132/89 02/07/21 12:15 Pulse Ox 97 02/07/21 12:03 General appearance: no acute distress HEENT: Positive: Normocephaly, Mucus Membranes Moist Neck: Positive: neck supple, trachea midline. Negative: JVD/HJR Cardiac: Positive: irregularly irregular, S1/S2. Negative: Audible Murmur Lungs: Positive: clear to auscultation (bilaterally) Neuro: Positive: Weakness (left-sided) Abdomen: Positive: Soft. Negative: Tender Skin: Negative: Rash Musculoskeletal: No Pain Extremities: Present: upper extr. pulses, lower extr. pulses. Absent: edema Results 02/04/21 15:13 02/04/21 15:13 - Imaging and Cardiology Echo: report reviewed (02/05/2021 - negative bubble study, severe concentric LVH, EF 45-50%, trace pericardial effusion), other (06/2020 - mild-mod concentric LVH, EF 55-60%, impaired LV relaxation, trace AR) EKG: report reviewed, image reviewed - EKG Interpretation EKG: no acute changes EKG interpretations - Telemetry EKG Rhythm: Atrial Fibrillation - EKG Supraventricular dysrhythmia: atrial fibrillation Assessment and Plan Recommend Eliquis 5mg BID to be started in AM if no objections from a Neuro standpoint. Pt is agreeable. Pauses noted on tele are consistent with compensatory pauses in the setting of underlying AF. Continue tele monitoring. F/u BMP & Mg. Will discontinue PO Cardizem and adjust antihypertensive regimen accordingly. Ok to continue home Lopressor as ordered. Pt seen in conjunction with Dr. Amarilys Vaughn, who agrees with the assessment and plan of care. - Patient Problems (1) Ischemic cerebrovascular accident (CVA) Current Visit: Yes Status: Acute (2) Atrial fibrillation Current Visit: Yes Status: Acute Qualifiers: Atrial fibrillation type: unspecified Qualified Code(s): I48.91 - Unspecified atrial fibrillation Plan to address problem: ?New onset (3) NSVT (nonsustained ventricular tachycardia) Current Visit: Yes Status: Acute Plan to address problem: 4-beat run noted 02/07 @ 0415 (pt asymptomatic) (4) VAL (acute kidney injury) Current Visit: Yes Status: Acute (5) Elevated troponin Current Visit: Yes Status: Acute Plan to address problem: -Minimally elevated troponin in the setting of acute CVA & VAL -Pt denies chest pain -No acute ischemic changes on ECG (6) CAD (coronary artery disease) Current Visit: Yes Status: Chronic Plan to address problem: ?H/o [place] per pt report (7) LANNY (obstructive sleep apnea) Current Visit: Yes Status: Chronic (8) HTN (hypertension) Current Visit: Yes Status: Chronic Qualifiers: Hypertension type: essential hypertension Qualified Code(s): I10 - Essential (primary) hypertension (9) DM2 (diabetes mellitus, type 2) Status: Chronic (10) Seizure disorder Current Visit: Yes Status: Chronic (11) History of CVA (cerebrovascular accident) Current Visit: Yes Status: Chronic
[2021-02-07] MEDS: hydrALAZINE 25 MG TAB PO SCH ×2 (13:37→21:29)
[2021-02-07 14:14] LABS: INR 1.09 (0.87-1.13)
[2021-02-07 14:15] LABS: Hematocrit 30.4 % (30.3-42.9); Hemoglobin 9.8 gm/dl (10.1-14.3); Mean Corpuscular HGB Conc 32 % (30-34); Mean Corpuscular Volume 80 fl (79-97); Partial Thromboplastin Time 30.2 Sec. (24.2-36.6); Platelet Count 214 K/mm3 (140-440); Red Blood Count 3.81 M/mm3 (3.65-5.03); Red Cell Distribution Width 16.8 % (13.2-15.2)
--- NOTE | 2021-02-07 14:55 | Electroencephalogram Report ---
Electroencephalogram EEG Date of exam: 02/07/21 History: Hx of One seizure a year ago ? Description: The waking background shows an appropriate organization with well-defined anterior posterior voltage and frequency gradients. Posteriorly, there is a well-developed alpha rhythm of [5-6 ] Hz which is symmetrical and bilaterally reactive. Anteriorly, there is a pattern of lower voltage and slightly irregular theta and beta range frequencies. During drowsiness, there is attenuation of the background rhythms. The sleep background shows normal organization with well-formed sleep spindles and vertex waves which are synchronous and symmetrical. Throughout, the recording there are no epileptiform abnormalities, focal or lateralizing features, or significant interhemispheric findings. Interpretation: this is mostly drowsy and early asleep recod No clear focal slowing or epileptiform discharges is noted Clincal correlation is in order
[2021-02-07] MEDS: GABAPENTIN 300 MG CAP PO SCH (17:07)
[2021-02-07] MEDS: TOPIRAMATE TAB 25 MG TAB PO SCH (21:27)
[2021-02-07] MEDS: INSULIN GLARGINE 100 UNITS/ML SUB-Q SCH (21:31)
[2021-02-08] MEDS: hydrALAZINE 25 MG TAB PO SCH ×3 (05:50→22:00)
[2021-02-08 06:45] LABS: Calcium 8.7 mg/dL (8.4-10.2)
--- NOTE | 2021-02-08 08:16 | Progress Note ---
Assessment and Plan - Patient Problems (1) Acute CVA (cerebrovascular accident) Current Visit: Yes Status: Acute Plan to address problem: CVA protocol Neuro consult requested High dose statin started (2) VAL (acute kidney injury) Current Visit: Yes Status: Acute Plan to address problem: IV fluids for now Nephrology consult (3) CAD (coronary artery disease) Current Visit: Yes Status: Chronic Qualifiers: Coronary Disease-Associated Artery/Lesion type: [place] artery [place] vs. transplanted heart: [place] heart Plan to address problem: Continue isosorbide mononitrate (4) Hyperlipidemia Current Visit: Yes Status: Chronic Qualifiers: Hyperlipidemia type: mixed hyperlipidemia Qualified Code(s): E78.2 - Mixed hyperlipidemia Plan to address problem: Continue statins (5) Hypertension Current Visit: Yes Status: Chronic Qualifiers: Hypertension type: essential hypertension Qualified Code(s): I10 - Essential (primary) hypertension Plan to address problem: Continue antihypertensives (6) DVT prophylaxis Current Visit: Yes Status: Acute Plan to address problem: On heparin and GI prophylaxis (7) Discharge planning issues Current Visit: Yes Status: Acute Plan to address problem: Discussed with case management about discharge planning Case management working on subacute rehab versus acute rehab Subjective Date of service: 02/07/21 Principal diagnosis: Acute CVA Interval history: This is a 65-year-old female. The patient has a complex past medical history, including obesity, cholelithiasis, hydronephrosis, status post stent with stent removal, ejection fraction 55 to 60%, obesity, hypertension, seizure, stroke x2, with reported residual right-sided weakness, myocardial infarction, obstructive sleep apnea with home CPAP, and diabetes. She is sent to the emergency room by an outpatient neurology physician, shirley Olivera Apparently, the patient has been having complaints of headaches and feeling like she has been having an unsteady gait, since January 2020. An outpatient MRI was obtained today, through [facility] imaging services, and was reportedly found to have a stroke or subacute stroke of unknown duration or chronicity, but she was referred to the emergency room for evaluation. The patient complains of mild headache. She has chronic blurry vision. She denies chest pain. She has chronic shortness of breath. She denies hematemesis and bright red blood per rectum. She denies urinary symptoms. She denies cough. She complains of general weakness, but denies new/different weakness. 02/05/2021 Neurology consult appreciated MRI consistent with right CVA with left-sided weakness 02/06/2021 Patient is too weak and altered for PT and OT Left-sided weakness persists 02/07/2021 Patient with altered sensorium Left-sided weakness persists Patient had EEG which did not show any seizure activity Objective - Constitutional Vitals: Vital Signs - 12hr 02/07/21 02/07/21 02/07/21 20:25 21:27 21:29 Temperature Pulse Rate 88 88 Pulse Rate [ 67 From Monitor] Respiratory 17 Rate Blood Pressure 128/80 125/80 O2 Sat by Pulse 96 Oximetry 02/07/21 02/08/21 02/08/21 23:37 04:00 04:04 Temperature 98.2 F 98.0 F Pulse Rate 75 91 H 91 H Pulse Rate [ From Monitor] Respiratory 16 18 Rate Blood Pressure 132/83 143/80 O2 Sat by Pulse 96 86 Oximetry 02/08/21 05:50 Temperature Pulse Rate 91 H Pulse Rate [ From Monitor] Respiratory Rate Blood Pressure 143/80 O2 Sat by Pulse Oximetry General appearance: Present: no acute distress, well-nourished - EENT Eyes: PERRL, EOM intact ENT: hearing intact, clear oral mucosa Ears: bilateral: normal - Neck Neck: supple, normal ROM - Respiratory Respiratory effort: normal Respiratory: bilateral: CTA - Breasts Breasts: normal - Cardiovascular Heart rate: 78 Rhythm: regular Heart Sounds: Present: S1 & S2. Absent: gallop, rub Extremities: pulses intact, No edema, normal color, Full ROM - Gastrointestinal General gastrointestinal: Present: soft, non-tender, non-distended, normal bowel sounds - Genitourinary Female genitourinary: normal - Integumentary Integumentary: clear, warm, dry - Musculoskeletal Musculoskeletal: 1, strength equal bilaterally - Neurologic Neurologic: moves all extremities - Psychiatric Psychiatric: memory intact, appropriate mood/affect, intact judgment & insight - Allied health notes Allied health notes reviewed: nursing, case management - Labs CBC & Chem 7: 02/07/21 13:48 02/08/21 05:29 Labs: Abnormal lab results 02/07/21 02/07/21 02/07/21 Range/Units 08:04 11:54 13:48 Hgb 9.8 L (10.1-14.3) gm/dl MCH 26 L (28-32) pg RDW 16.8 H (13.2-15.2) % Chloride (98-107) mmol/L BUN (7-17) mg/dL Creatinine (0.6-1.2) mg/dL Glucose (65-100) mg/dL POC Glucose 155 H 205 H (70-105) mg/dL 02/07/21 02/07/21 02/07/21 Range/Units 13:48 16:48 20:27 Hgb (10.1-14.3) gm/dl MCH (28-32) pg RDW (13.2-15.2) % Chloride (98-107) mmol/L BUN (7-17) mg/dL Creatinine 2.8 H D (0.6-1.2) mg/dL Glucose (65-100) mg/dL POC Glucose 176 H 197 H (70-105) mg/dL 02/08/21 Range/Units 05:29 Hgb (10.1-14.3) gm/dl MCH (28-32) pg RDW (13.2-15.2) % Chloride 108.7 H (98-107) mmol/L BUN 53 H (7-17) mg/dL Creatinine 2.5 H (0.6-1.2) mg/dL Glucose 119 H (65-100) mg/dL POC Glucose (70-105) mg/dL HEART Score - HEART Score Troponin: Troponin T 0.033 ng/mL (0.00-0.029) H 02/04/21 20:09
--- NOTE | 2021-02-08 09:06 | Progress Note ---
Assessment and Plan - Patient Problems (1) Acute CVA (cerebrovascular accident) Current Visit: Yes Status: Acute (2) Hypertension Current Visit: Yes Status: Chronic Qualifiers: Hypertension type: essential hypertension Qualified Code(s): I10 - Essential (primary) hypertension (3) Coronary artery disease Current Visit: Yes Status: Chronic Qualifiers: Coronary Disease-Associated Artery/Lesion type: [place] artery [place] vs. transplanted heart: [place] heart (4) Hyperlipidemia Current Visit: Yes Status: Chronic Qualifiers: Hyperlipidemia type: mixed hyperlipidemia Qualified Code(s): E78.2 - Mixed hyperlipidemia (5) Vascular dementia Current Visit: Yes Status: Chronic Qualifiers: Dementia behavioral disturbance: without behavioral disturbance Qualified Code(s): F01.50 - Vascular dementia without behavioral disturbance (6) DVT prophylaxis Current Visit: Yes Status: Acute Subjective Date of service: 02/07/21 Principal diagnosis: Acute CVA Objective - Constitutional Vitals: Vital Signs - 12hr 02/07/21 02/07/21 02/07/21 21:27 21:29 23:37 Temperature 98.2 F Pulse Rate 88 88 75 Respiratory 16 Rate Blood Pressure 128/80 125/80 132/83 O2 Sat by Pulse 96 Oximetry 02/08/21 02/08/21 02/08/21 04:00 04:04 05:50 Temperature 98.0 F Pulse Rate 91 H 91 H 91 H Respiratory 18 Rate Blood Pressure 143/80 143/80 O2 Sat by Pulse 86 Oximetry - Labs CBC & Chem 7: 02/07/21 13:48 02/08/21 05:29 Labs: Abnormal lab results 02/07/21 02/07/21 02/07/21 Range/Units 08:04 11:54 13:48 Hgb 9.8 L (10.1-14.3) gm/dl MCH 26 L (28-32) pg RDW 16.8 H (13.2-15.2) % Chloride (98-107) mmol/L BUN (7-17) mg/dL Creatinine (0.6-1.2) mg/dL Glucose (65-100) mg/dL POC Glucose 155 H 205 H (70-105) mg/dL 02/07/21 02/07/21 02/07/21 Range/Units 13:48 16:48 20:27 Hgb (10.1-14.3) gm/dl MCH (28-32) pg RDW (13.2-15.2) % Chloride (98-107) mmol/L BUN (7-17) mg/dL Creatinine 2.8 H D (0.6-1.2) mg/dL Glucose (65-100) mg/dL POC Glucose 176 H 197 H (70-105) mg/dL 02/08/21 Range/Units 05:29 Hgb (10.1-14.3) gm/dl MCH (28-32) pg RDW (13.2-15.2) % Chloride 108.7 H (98-107) mmol/L BUN 53 H (7-17) mg/dL Creatinine 2.5 H (0.6-1.2) mg/dL Glucose 119 H (65-100) mg/dL POC Glucose (70-105) mg/dL HEART Score - HEART Score Troponin: Troponin T 0.033 ng/mL (0.00-0.029) H 02/04/21 20:09
[2021-02-08] MEDS: ASPIRIN 325 MG TAB PO SCH (09:33)
[2021-02-08] MEDS: SERTRALINE 100 MG TAB PO SCH (09:33)
[2021-02-08] MEDS: CITALOPRAM 20 MG TAB PO SCH (09:33)
[2021-02-08] MEDS: DOCUSATE SODIUM 100 MG CAP PO SCH ×2 (09:33→21:57)
[2021-02-08] MEDS: SENNOSIDES 8.6 MG TAB PO SCH ×2 (09:34→21:59)
[2021-02-08] MEDS: levETIRAcetam 500 MG TAB PO SCH ×2 (09:34→21:57)
[2021-02-08] MEDS: APIXABAN 5 MG TAB PO SCH ×2 (09:34→21:57)
[2021-02-08] MEDS: METOPROLOL TARTRATE 25 MG TAB PO SCH ×2 (09:35→21:58)
[2021-02-08] MEDS: HYDROcodone/ACETAMINOPHEN 7.5-325MG TAB PO SCH ×3 (09:39→21:59)
[2021-02-08] MEDS ORDERED: SODIUM CHLORIDE 0.9% 1000 ML 1,000 ML IV SCH (10:00)
--- NOTE | 2021-02-08 10:43 | Progress Note ---
Assessment and Plan Eliquis 5mg BID initiated this AM. Will optimize antihypertensive regimen. Would ultimately like to initiate ACEi/ARB given DM2; however, not at this time due to VAL. Otherwise stable cardiac status. Pt seen in conjunction with Dr. Amarilys Vaughn, who agrees with the assessment and plan of care. - Patient Problems (1) Ischemic cerebrovascular accident (CVA) Current Visit: Yes Status: Acute (2) Atrial fibrillation Current Visit: Yes Status: Chronic Qualifiers: Atrial fibrillation type: unspecified Qualified Code(s): I48.91 - Unspe cified atrial fibrillation Plan to address problem: ?New onset (3) NSVT (nonsustained ventricular tachycardia) Current Visit: Yes Status: Acute Plan to address problem: 4-beat run noted 02/07 @ 0415 (pt asymptomatic) (4) VAL (acute kidney injury) Current Visit: Yes Status: Acute (5) Elevated troponin Current Visit: Yes Status: Acute Plan to address problem: -Minimally elevated troponin in the setting of acute CVA & VAL -Pt denies chest pain -No acute ischemic changes on ECG (6) CAD (coronary artery disease) Current Visit: Yes Status: Chronic Qualifiers: Coronary Disease-Associated Artery/Lesion type: [place] artery [place] vs. transplanted heart: [place] heart Plan to address problem: ?H/o [place] per pt report (7) LANNY (obstructive sleep apnea) Current Visit: Yes Status: Chronic (8) HTN (hypertension) Current Visit: Yes Status: Chronic Qualifiers: Hypertension type: essential hypertension Qualified Code(s): I10 - Essential (primary) hypertension (9) DM2 (diabetes mellitus, type 2) Status: Chronic (10) Seizure disorder Current Visit: Yes Status: Chronic (11) History of CVA (cerebrovascular accident) Current Visit: Yes Status: Chronic Subjective Date of service: 02/08/21 Principal diagnosis: Acute CVA, New Onset AF Interval history: Resting comfortably in bed. C/o generalized weakness, unchanged from previous. No cardiac complaints. AF 90s on tele w/compensatory pauses. Objective Last Vital Signs Temp 98.0 F 02/08/21 04:04 Pulse 99 H 02/08/21 09:35 Resp 20 02/08/21 08:00 BP 146/83 02/08/21 09:35 Pulse Ox 86 02/08/21 04:04 - Physical Examination General: No Apparent Distress HEENT: Positive: Normocephaly, Mucus Membranes Moist Neck: Positive: neck supple, trachea midline. Negative: JVD/HJR Cardiac: Positive: irregularly irregular, S1/S2. Negative: Audible Murmur Lungs: Positive: clear to auscultation Neuro: Positive: Weakness (left-sided) Abdomen: Positive: Soft. Negative: Tender Skin: Negative: Rash Musculoskeletal: No Pain Extremities: Present: upper extr. pulses, lower extr. pulses. Absent: edema - Labs and Meds Coagulation 02/07/21 Range/Units 13:48 PT 14.0 (12.2-14.9) Sec. INR 1.09 (0.87-1.13) APTT 30.2 (24.2-36.6) Sec. CBC 02/07/21 Range/Units 13:48 WBC 6.3 (4.5-11.0) K/mm3 RBC 3.81 (3.65-5.03) M/mm3 Hgb 9.8 L (10.1-14.3) gm/dl Hct 30.4 D (30.3-42.9) % Plt Count 214 (140-440) K/mm3 Comprehensive Metabolic Panel 02/07/21 02/08/21 Range/Units 13:48 05:29 Sodium 142 (137-145) mmol/L Potassium 4.2 (3.6-5.0) mmol/L Chloride 108.7 H (98-107) mmol/L Carbon Dioxide 23 (22-30) mmol/L BUN 53 H (7-17) mg/dL Creatinine 2.8 H D 2.5 H (0.6-1.2) mg/dL Glucose 119 H (65-100) mg/dL Calcium 8.7 (8.4-10.2) mg/dL - Imaging and Cardiology EKG: report reviewed, image reviewed Pharmacologic stress test: report reviewed (06/2020 - negative for ischemia) Echo: report reviewed (02/05/2021 - negative bubble study, severe concentric LVH, EF 45-50%, trace pericardial effusion), other (06/2020 - mild-mod concentric LVH, EF 55-60%, impaired LV relaxation, trace AR) - Telemetry EKG Rhythm: Atrial Fibrillation - EKG Supraventricular dysrhythmia: atrial fibrillation
--- NOTE | 2021-02-08 12:25 | Progress Note ---
Assessment and Plan Assessment and plan: #Acute CVA Continue aspirin 325 mg daily Statins Neurology follow up Started on eliquis for atrial fibrillation PT recommends rehab. Awaiting placement #VAL On IV hydration Vasomotor nephropathy Cr better today. Continue to avoid nephrotoxic medications. Nephrology evaluation #Atrial fibrillation Contiinue rate control Anticoagulation Cardiology recs appreciated. #Diabetes mellitus Lantus and sliding scale #Seizure disorder Keppra EEG shows no seizure activity Neurology recommendations appreciated # HTN Monitor BP DVT ppx -On eliquis Discussed with case management about discharge planning Case management working on subacute rehab versus acute rehab History Interval history: 65-year-old female. The patient has a complex past medical history, including obesity, cholelithiasis, hydronephrosis, status post stent with stent removal, ejection fraction 55 to 60%, obesity, hypertension, seizure, stroke x2, with reported residual right-sided weakness, myocardial infarction, obstructive sleep apnea with home CPAP, and diabetes. She is sent to the emergency room by an outpatient neurology physician, a Dr. Néstor Olivera Apparently, the patient has been having complaints of headaches and feeling like she has been having an unsteady gait, since January 2020. An outpatient MRI was obtained today, through [facility] imaging services, and was reportedly found to have a stroke or subacute stroke of unknown duration or chronicity, but she was referred to the emergency room for evaluation. The patient complains of mild headache. She has chronic blurry vision. She denies chest pain. She has chronic shortness of breath. She denies hematemesis and bright red blood per rectum. She denies urinary symptoms. She denies cough. She complains of general weakness, but denies new/different weakness. 02/05/2021 Neurology consult appreciated MRI consistent with right CVA with left-sided weakness 02/06/2021 Patient is too weak and altered for PT and OT Left-sided weakness persists 02/07/2021 Patient with altered sensorium Left-sided weakness persists Patient had EEG which did not show any seizure activity 02/08. Started on anticoagulation for atrial fibrillation. Patient will need placement. Cardiology and neurology following Hospitalist Physical - Physical exam Narrative exam: VITAL SIGNS: Reviewed. GENERAL: Awake HEAD: No signs of head trauma. EYES: Pupils are equal. Extraocular motions intact. MOUTH: Oropharynx is normal. NECK: No adenopathy, no JVD. CHEST: Chest with diminished breath sounds bilaterally. No wheezes, rales, or rhonchi. CARDIAC: normal S1 and S2, without murmurs, gallops, or rubs. ABDOMEN: Soft, non tender and non distended. No rebound or guarding, and no masses palpated. Bowel Sounds normal. MUSCULOSKELETAL: No edema NEUROLOGIC EXAM: Alert and oriented x3. Has left-sided weakness SKIN: No obvious lesions - Constitutional Vitals: Temp Pulse Resp BP Pulse Ox 98.0 F 99 H 20 146/83 86 02/08/21 04:04 02/08/21 09:35 02/08/21 08:00 02/08/21 09:35 02/08/21 04:04 HEART Score - HEART Score Troponin: Troponin T 0.033 ng/mL (0.00-0.029) H 02/04/21 20:09 Results - Labs CBC & Chem 7: 02/07/21 13:48 02/08/21 05:29 Labs: Laboratory Last Values WBC 6.3 K/mm3 (4.5-11.0) 02/07/21 13:48 RBC 3.81 M/mm3 (3.65-5.03) 02/07/21 13:48 Hgb 9.8 gm/dl (10.1-14.3) L 02/07/21 13:48 Hct 30.4 % (30.3-42.9) D 02/07/21 13:48 MCV 80 fl (79-97) 02/07/21 13:48 MCH 26 pg (28-32) L 02/07/21 13:48 MCHC 32 % (30-34) 02/07/21 13:48 RDW 16.8 % (13.2-15.2) H 02/07/21 13:48 Plt Count 214 K/mm3 (140-440) 02/07/21 13:48 Lymph % (Auto) 21.7 % (13.4-35.0) 02/04/21 15:13 [place] % (Auto) 9.4 % (0.0-7.3) H 02/04/21 15:13 Eos % (Auto) 8.3 % (0.0-4.3) H 02/04/21 15:13 Baso % (Auto) 1.0 % (0.0-1.8) 02/04/21 15:13 Lymph # (Auto) 1.2 K/mm3 (1.2-5.4) 02/04/21 15:13 [place] # (Auto) 0.5 K/mm3 (0.0-0.8) 02/04/21 15:13 Eos # (Auto) 0.5 K/mm3 (0.0-0.4) H 02/04/21 15:13 Baso # (Auto) 0.1 K/mm3 (0.0-0.1) 02/04/21 15:13 Seg Neutrophils % 59.6 % (40.0-70.0) 02/04/21 15:13 Seg Neutrophils # 3.3 K/mm3 (1.8-7.7) 02/04/21 15:13 PT 14.0 Sec. (12.2-14.9) 02/07/21 13:48 INR 1.09 (0.87-1.13) 02/07/21 13:48 APTT 30.2 Sec. (24.2-36.6) 02/07/21 13:48 Thrombin Time 17.1 Sec. (15.1-19.6) 02/04/21 15:13 Sodium 142 mmol/L (137-145) 02/08/21 05:29 Potassium 4.2 mmol/L (3.6-5.0) 02/08/21 05:29 Chloride 108.7 mmol/L (98-107) H 02/08/21 05:29 Carbon Dioxide 23 mmol/L (22-30) 02/08/21 05:29 Anion Gap 15 mmol/L 02/08/21 05:29 BUN 53 mg/dL (7-17) H 02/08/21 05:29 Creatinine 2.5 mg/dL (0.6-1.2) H 02/08/21 05:29 Estimated GFR 24 ml/min 02/08/21 05:29 BUN/Creatinine Ratio 21 % 02/08/21 05:29 Glucose 119 mg/dL (65-100) H 02/08/21 05:29 POC Glucose 197 mg/dL (70-105) H 02/07/21 20:27 Hemoglobin A1c 7.0 % (4-6) H 02/06/21 15:13 Calcium 8.7 mg/dL (8.4-10.2) 02/08/21 05:29 Magnesium 2.20 mg/dL (1.7-2.3) 02/08/21 05:29 Total Bilirubin 0.70 mg/dL (0.1-1.2) 02/04/21 15:13 AST 27 units/L (5-40) 02/04/21 15:13 ALT 44 units/L (7-56) 02/04/21 15:13 Alkaline Phosphatase 114 units/L (35-129) 02/04/21 15:13 Total Creatine Kinase 240 units/L (30-135) H 02/04/21 15:25 CK-MB (CK-2) 3.4 ng/mL (0.0-4.0) 02/04/21 15:13 CK-MB (CK-2) Rel Index 1.4 (0-4) 02/04/21 15:13 Troponin T 0.033 ng/mL (0.00-0.029) H 02/04/21 20:09 Total Protein 6.9 g/dL (6.3-8.2) 02/04/21 15:13 Albumin 3.6 g/dL (3.9-5) L 02/04/21 15:13 Albumin/Globulin Ratio 1.1 % 02/04/21 15:13 Triglycerides 121 mg/dL (2-149) 02/04/21 15:13 Cholesterol 117 mg/dL (50-199) 02/04/21 15:13 LDL Cholesterol Direct 67 mg/dL (50-130) 02/04/21 15:13 HDL Cholesterol 32 mg/dL (40-59) L 02/04/21 15:13 Cholesterol/HDL Ratio 3.65 % 02/04/21 15:13 TSH 1.140 mlU/mL (0.270-4.200) 02/04/21 15:25 Urine Color Yellow (Yellow) 02/04/21 16:51 Urine Turbidity Clear (Clear) 02/04/21 16:51 Urine pH 5.0 (5.0-7.0) 02/04/21 16:51 Ur Specific [place] 1.019 (1.003-1.030) 02/04/21 16:51 Urine Protein >500 mg/dL (Negative) 02/04/21 16:51 Urine Glucose (UA) Neg mg/dL (Negative) 02/04/21 16:51 Urine Ketones Tr mg/dL (Negative) 02/04/21 16:51 Urine Blood Neg (Negative) 02/04/21 16:51 Urine Nitrite Neg (Negative) 02/04/21 16:51 Ur Reducing Substances Not Reportable 02/04/21 16:51 Urine Bilirubin Neg (Negative) 02/04/21 16:51 Urine Ictotest Not Reportable 02/04/21 16:51 Urine Urobilinogen < 2.0 mg/dL (<2.0) 02/04/21 16:51 Ur Leukocyte Esterase Neg (Negative) 02/04/21 16:51 Urine WBC (Auto) 1.0 /HPF (0.0-6.0) 02/04/21 16:51 Urine RBC (Auto) 1.0 /HPF (0.0-6.0) 02/04/21 16:51 U Epithel Cells (Auto) 3.0 /HPF (0-13.0) 02/04/21 16:51 Urine Mucus Few /HPF 02/04/21 16:51 Microbiology: Microbiology 02/04/21 16:51 Urine,Clean Catch Urine Culture - Final Tej[place]/IV: Voiding Method Toilet Active Medications - Current Medications Current Medications: Generic Name Dose Route Start Last Admin Trade Name Freq PRN Reason Stop Dose Admin Acetaminophen 650 mg 02/04/21 23:56 Acetaminophen 325 Mg Tab PO Q4H PRN Pain MILD(1-3)/Fever >100.5/FERNANDEZ Hydrocodone Bitart/Acetaminophen 1 each 02/05/21 08:00 02/08/21 09:39 Hydrocodone/Acetaminophen 7.5-325mg Tab PO 1 each TID TIM Administration Apixaban 5 mg 02/08/21 10:00 02/08/21 09:34 Apixaban 5 Mg Tab PO 5 mg Q12HR TIM Administration Protocol Aspirin 325 mg 02/05/21 10:00 02/08/21 09:33 Aspirin 325 Mg Tab PO 325 mg QDAY TIM Administration Atorvastatin Calcium 80 mg 02/05/21 22:00 02/07/21 21:30 Atorvastatin 40 Mg Tab PO 80 mg QHS TIM Administration Citalopram Hydrobromide 20 mg 02/07/21 10:00 02/08/21 09:33 Citalopram 20 Mg Tab PO 20 mg QDAY [facility] Administration Docusate Sodium 100 mg 02/05/21 10:00 02/08/21 09:33 Docusate Sodium 100 Mg Cap PO 100 mg BID TIM Administration Gabapentin 300 mg 02/07/21 18:00 02/07/21 17:07 Gabapentin 300 Mg Cap PO Not Given QPM [facility] Hydralazine HCl 25 mg 02/07/21 14:00 02/08/21 05:50 Hydralazine 25 Mg Tab PO 25 mg Q8HR TIM Administration Sodium Chloride 1,000 mls @ 100 mls/hr 02/08/21 10:00 Nacl 0.9% 1000 Ml IV DIRECT [facility] Insulin Glargine 15 units 02/08/21 22:00 Insulin Glargine 100 Units/Ml SUB-Q QHS [facility] Insulin Human Lispro 0 unit 02/08/21 11:30 Insulin Lispro 100 Unit/Ml SUB-Q ACHS [facility] Protocol Isosorbide Mononitrate 60 mg 02/05/21 10:00 02/08/21 09:34 Isosorbide Mononitrate Er 60 Mg Tab PO 60 mg QDAY [facility] Administration Levetiracetam 500 mg 02/05/21 01:00 02/08/21 09:34 Levetiracetam 500 Mg Tab PO 500 mg BID [facility] Administration Metoclopramide HCl 5 mg 02/05/21 00:30 Metoclopramide 10 Mg/2 Ml Inj IV Q6H PRN Nausea And Vomiting Metoprolol Tartrate 25 mg 02/05/21 01:00 02/08/21 09:35 Metoprolol Tartrate 25 Mg Tab PO 25 mg BID [facility] Administration Morphine Sulfate 2 mg 02/05/21 00:12 Morphine 2 Mg/1 Ml Inj IV Q4H PRN Pain, Moderate (4-6) Ondansetron HCl 4 mg 02/05/21 00:12 Ondansetron 4 Mg/2 Ml Inj IV Q8H PRN Nausea And Vomiting Oxycodone/Acetaminophen 1 tab 02/05/21 00:03 Oxycodone /Acetaminophen 5-325mg Tab PO Q6H PRN Pain, Moderate (4-6) Senna 8.6 mg 02/05/21 10:00 02/08/21 09:34 Sennosides 8.6 Mg Tab PO 8.6 mg Q12HR TIM Administration Sertraline HCl 100 mg 02/05/21 10:00 02/08/21 09:33 Sertraline 100 Mg Tab PO 100 mg QDAY TIM Administration Sodium Chloride 10 ml 02/05/21 10:00 02/08/21 09:33 Sodium Chloride 0.9% 10 Ml Flush Syringe IV 10 ml BID TIM Administration Sodium Chloride 10 ml 02/05/21 00:12 Sodium Chloride 0.9% 10 Ml Flush Syringe IV PRN PRN LINE FLUSH Sumatriptan Succinate 100 mg 02/05/21 01:10 Sumatriptan Succinate 50 Mg Tab PO DAILY PRN Migraine Headache Topiramate 50 mg 02/06/21 22:00 02/07/21 21:27 Topiramate Tab 25 Mg Tab PO 50 mg QHS TIM Administration
--- NOTE | 2021-02-08 12:32 | Progress Note ---
Assessment and Plan # Assessment Impression: # Ischemic Stroke (Acute), New stroke on outpatient MRI.-- - Had MRI here is remarkable for right cerebral infarct X2 emboli plus BG remote infarct -Ct brain here is unremarkable. -Multiple stroke risk factors including Afib started today on Eliquis -MRA brain and neck--are unremarkable # DM -A1C is #7---mainatin <7 -BS is wnl # HTN -InItial BP is 166/92--- -Allow for permissive HTN <220/110 for 24hours -then BP gradually 150/80 #HLD. -LDL#67 -Lipitor 40 mg # Elevated cardiac enzymes -serial cardiac enzymes 0.042 -Echo,EF#45-50% -EKG -cardiology -Possibly related CVA # New onst AF -panel monitor -ECHO Ef#55-60% -SC heparine -ASA 325 mg -Consider AC with 3-7 days if no contraindications ---started on Eliquis # Recurrent headache -morbid obesity -finding is suggestive of migraine recurrent taking imitex 2-3 times a week - On Topamax 50 mg QHS headache is better #Possible underlying anxiety add to her problem -consider celexa 20 mg daily -assurance # unsteady gait - related to PN and underlying DM -Check A1C #7 - Cut down neurontine to 300 mg qhs due to side effect of increase weight and add to unsteady gait # Possible underlying sleep apnea - contribute to risk of BP and CVA - need weight loss -need Cpap -- she had machine at home she like to use here if possible # Renal Insuff -cr.#1.8 # Hx of seizure -According to pt. she had one event last january 2020 of syncopy after cardiac event ? not clear if seizure and she was started on Keppra been taking for over a year with no event never had seizure in her life --- she does not drive -- lives with her sister - EEG is remarkable for drowsy and asleep record -consider cut down Keppra to 250 mg bid -and neurology follow up -seizure precaution PLAN 1- pt. is not a candidate for TPA nor thrombectomy symptom onset not clear 2- A1C and LDL noted 3-MRA brain and neck unremarkable 4- Echo cardiogram,EF#55-60% 5- panel monitor 6- ASA cut down to 81 mg daily plus lipitor 40 mg daily,Sq heparine --she is started on AC 7- Pt/ST 8-cardiac follow 9-cut down neurontine 300 mg qhs 10-topamax 50 mg qhs 11-celexa 20 mg daily 12-Pt/ST evaluate 13 neurology and cardiology follow up will sign off Subjective Date of service: 02/08/21 Principal diagnosis: Acute CVA, New Onset AF Interval history: doing better today , improved haedache and left side weakness had MRI brain done she is sleepy today no complain started on eliquis Objective - Vital Sign Vital Signs - 12hr 02/08/21 02/08/21 02/08/21 04:00 04:04 05:50 Temperature 98.0 F Pulse Rate 91 H 91 H 91 H Respiratory 18 Rate Blood Pressure 143/80 143/80 O2 Sat by Pulse 86 Oximetry 02/08/21 02/08/21 02/08/21 08:00 09:34 09:35 Temperature Pulse Rate 99 H 99 H Respiratory 20 Rate Blood Pressure 146/83 146/83 O2 Sat by Pulse Oximetry - General Apperance Constitutional: comfortable - EENT EENT: PERRL, mucous membranes moist - Respiratory Respiratory: chest non-tender, lungs clear - Cardiovascular Cardiovascular: other (AF eith Vent. in the 90th) - Gastrointestinal Gastrointestinal: normoactive bowel sounds - Integumentary Integumentary: normal - Neurologic Cranial nerve examination: other (slight left facial droop if any ) Detailed motor examination: other (residual elft upper 4-/5) - Laboratory Findings CBC and BMP: 02/07/21 13:48 02/08/21 05:29 Abnormal Lab Findings: Abnormal Labs 02/04/21 02/04/21 02/04/21 15:13 15:13 15:13 Hgb MCH 26 L RDW 16.8 H Bent % (Auto) 9.4 H Eos % (Auto) 8.3 H Eos # (Auto) 0.5 H Chloride 108.6 H BUN 31 H Creatinine 1.8 H Glucose 162 H POC Glucose Hemoglobin A1c Total Creatine Kinase 240 H Troponin T 0.042 H Albumin 3.6 L HDL Cholesterol 32 L 02/04/21 02/04/21 02/04/21 15:25 17:43 20:09 Hgb MCH RDW [place] % (Auto) Eos % (Auto) Eos # (Auto) Chloride BUN Creatinine Glucose POC Glucose Hemoglobin A1c Total Creatine Kinase 240 H Troponin T 0.036 H 0.033 H Albumin HDL Cholesterol 02/04/21 02/06/21 02/06/21 23:00 15:13 21:44 Hgb MCH RDW [place] % (Auto) Eos % (Auto) Eos # (Auto) Chloride BUN Creatinine Glucose POC Glucose 128 H 219 H Hemoglobin A1c 7.0 H Total Creatine Kinase Troponin T Albumin HDL Cholesterol 02/07/21 02/07/21 02/07/21 08:04 11:54 13:48 Hgb 9.8 L MCH 26 L RDW 16.8 H [place] % (Auto) Eos % (Auto) Eos # (Auto) Chloride BUN Creatinine Glucose POC Glucose 155 H 205 H Hemoglobin A1c Total Creatine Kinase Troponin T Albumin HDL Cholesterol 02/07/21 02/07/21 02/07/21 13:48 16:48 20:27 Hgb MCH RDW [place] % (Auto) Eos % (Auto) Eos # (Auto) Chloride BUN Creatinine 2.8 H D Glucose POC Glucose 176 H 197 H Hemoglobin A1c Total Creatine Kinase Troponin T Albumin HDL Cholesterol 02/08/21 05:29 Hgb MCH RDW [place] % (Auto) Eos % (Auto) Eos # (Auto) Chloride 108.7 H BUN 53 H Creatinine 2.5 H Glucose 119 H POC Glucose Hemoglobin A1c Total Creatine Kinase Troponin T Albumin HDL Cholesterol
[2021-02-08] MEDS: INSULIN LISPRO 100 UNIT/ML SUB-Q SCH ×3 (13:29→22:01)
--- NOTE | 2021-02-08 13:38 | Consultation ---
History of Present Illness - Reason for Consult Consult date: 02/08/21 acute renal failure, chronic renal failure - History of Present Illness The patient is a 65 YO female with history significant for Morbid obesity, HTN, cholelithiasis, R hydronephrosis s/p stent with stent removal, seizure, Stroke x2 with reported residual right-sided weakness, CAD, LANNY on CPAP and CKD who presented to [facility] ED with c/o headache and unsteady gait. An outpatient MRI was obtained was reportedly found to have a stroke or subacute stroke of unknown duration or chronicity, but she was referred to the emergency room for evaluation. Patient is a very poor historian. Patient was admitted with Acute CVA. Labs significant for Creat 2.3 and BUN 53. Nephrology was consulted for further evaluation of VAL. Past History Past Medical History: acute NM, CAD, diabetes, hypertension, migraines, renal failure, seizures, stroke, other (LANNY) Past Surgical History: denies: valve replacement, CABG, PTCA Social history: denies: smoking, alcohol abuse Family history: hypertension Medications and Allergies Allergies Allergy/AdvReac Type Severity Reaction Status Date / Time No Known Allergies Allergy Verified 07/12/20 05:04 Home Medications Medication Instructions Recorded Confirmed Last Taken Type Gabapentin 300 mg PO TID 07/12/20 02/06/21 07/11/20 History Aspirin 325 mg PO QDAY 07/13/20 02/06/21 Unknown History Atorvastatin [Lipitor] 80 mg PO DAILY 07/13/20 02/06/21 Unknown History HYDROcodone/ACETAMINOPHEN 1 each PO TID 07/13/20 02/06/21 Unknown History [Hydrocodone-Acetamin 7.5-300] Sertraline [Zoloft] 100 mg PO QDAY 07/13/20 02/06/21 Unknown History levETIRAcetam [Keppra TAB] 500 mg PO BID 07/13/20 02/06/21 Unknown History ISOSORBIDE MONOnitrate [Imdur ER] 60 mg PO QDAY #30 tablet 07/19/20 02/06/21 Unknown Rx Metoprolol [Lopressor TAB] 25 mg PO BID #60 tablet 07/19/20 02/06/21 Unknown Rx hydrALAZINE [Apresoline TAB] 50 mg PO Q8HR #240 tablet 07/19/20 02/06/21 Unknown Rx Active Meds: Active Medications Acetaminophen (Acetaminophen 325 Mg Tab) 650 mg PO Q4H PRN PRN Reason: Pain MILD(1-3)/Fever >100.5/FERNANDEZ Hydrocodone Bitart/Acetaminophen (Hydrocodone/Acetaminophen 7.5-325mg Tab) 1 each PO TID [facility] Last Admin: 02/08/21 09:39 Dose: 1 each Documented by: Apixaban (Apixaban 5 Mg Tab) 5 mg PO Q12HR [facility]; Protocol Last Admin: 02/08/21 09:34 Dose: 5 mg Documented by: Aspirin (Aspirin 325 Mg Tab) 325 mg PO QDAY [facility] Last Admin: 02/08/21 09:33 Dose: 325 mg Documented by: Atorvastatin Calcium (Atorvastatin 40 Mg Tab) 80 mg PO QHS [facility] Last Admin: 02/07/21 21:30 Dose: 80 mg Documented by: Citalopram Hydrobromide (Citalopram 20 Mg Tab) 20 mg PO QDAY [facility] Last Admin: 02/08/21 09:33 Dose: 20 mg Documented by: Docusate Sodium (Docusate Sodium 100 Mg Cap) 100 mg PO BID [facility] Last Admin: 02/08/21 09:33 Dose: 100 mg Documented by: Gabapentin (Gabapentin 300 Mg Cap) 300 mg PO QPM [facility] Last Admin: 02/07/21 17:07 Dose: Not Given Documented by: Hydralazine HCl (Hydralazine 25 Mg Tab) 25 mg PO Q8HR [facility] Last Admin: 02/08/21 05:50 Dose: 25 mg Documented by: Sodium Chloride (Nacl 0.9% 1000 Ml) 1,000 mls @ 100 mls/hr IV DIRECT [facility] Insulin Glargine (Insulin Glargine 100 Units/Ml) 15 units SUB-Q QHS [facility] Insulin Human Lispro (Insulin Lispro 100 Unit/Ml) 0 unit SUB-Q ACHS [facility]; Protocol Last Admin: 02/08/21 13:29 Dose: Not Given Documented by: Isosorbide Mononitrate (Isosorbide Mononitrate Er 60 Mg Tab) 60 mg PO QDAY [facility] Last Admin: 02/08/21 09:34 Dose: 60 mg Documented by: Levetiracetam (Levetiracetam 500 Mg Tab) 500 mg PO BID [facility] Last Admin: 02/08/21 09:34 Dose: 500 mg Documented by: Metoclopramide HCl (Metoclopramide 10 Mg/2 Ml Inj) 5 mg IV Q6H PRN PRN Reason: Nausea And Vomiting Metoprolol Tartrate (Metoprolol Tartrate 25 Mg Tab) 25 mg PO BID [facility] Last Admin: 02/08/21 09:35 Dose: 25 mg Documented by: Morphine Sulfate (Morphine 2 Mg/1 Ml Inj) 2 mg IV Q4H PRN PRN Reason: Pain, Moderate (4-6) Ondansetron HCl (Ondansetron 4 Mg/2 Ml Inj) 4 mg IV Q8H PRN PRN Reason: Nausea And Vomiting Oxycodone/Acetaminophen (Oxycodone /Acetaminophen 5-325mg Tab) 1 tab PO Q6H PRN PRN Reason: Pain, Moderate (4-6) Senna (Sennosides 8.6 Mg Tab) 8.6 mg PO Q12HR [facility] Last Admin: 02/08/21 09:34 Dose: 8.6 mg Documented by: Sertraline HCl (Sertraline 100 Mg Tab) 100 mg PO QDAY [facility] Last Admin: 02/08/21 09:33 Dose: 100 mg Documented by: Sodium Chloride (Sodium Chloride 0.9% 10 Ml Flush Syringe) 10 ml IV BID [facility] Last Admin: 02/08/21 09:33 Dose: 10 ml Documented by: Sodium Chloride (Sodium Chloride 0.9% 10 Ml Flush Syringe) 10 ml IV PRN PRN PRN Reason: LINE FLUSH Sumatriptan Succinate (Sumatriptan Succinate 50 Mg Tab) 100 mg PO DAILY PRN PRN Reason: Migraine Headache Topiramate (Topiramate Tab 25 Mg Tab) 50 mg PO QHS [facility] Last Admin: 02/07/21 21:27 Dose: 50 mg Documented by: Review of Systems ROS unobtainable: due to mental status Exam - Vital Signs Vital signs: Vital Signs Temp Pulse Resp BP Pulse Ox 98.3 F 134 H 20 163/112 98 02/04/21 14:50 02/04/21 14:50 02/04/21 14:50 02/04/21 14:50 02/04/21 14:50 Results - Lab Results 02/07/21 13:48 02/08/21 05:29 Most recent lab results Calcium 8.7 mg/dL (8.4-10.2) 02/08/21 05:29 Magnesium 2.20 mg/dL (1.7-2.3) 02/08/21 05:29 Assessment and Plan 1. Acute kidney injury: VAL superimposed on CKD. ?vasomotor VAL. Spilt function R 22.5% and L 77.5%. Urine studies and Renal US ordered. Monitor renal function. Renal prognosis is guarded. Creatinine level is slightly better today. Avoid nephrotoxic agents. Meds dosage based on GFR. 2. FEN: Hyperchloremia, monitor. Monitor lytes and volume status. 3. Acute CVA: MRI with acute infarction in R hemisphere. Followed by Neurology. 4. Elevated cardiac enzymes: Echo,EF#45-50%. Followed by Cards. 5. New onset A.fib: Eliquis. 6. DM type 2: HbA1C is #7. Monitor. 7. HTN: S/p permissive HTN. Monitor BP. Adjust meds as needed. 8. Recurrent headache: On Topamax 50 mg QHS. Followed by Neuro. 9. LANNY. 10. Hx of seizure: Keppra. 11. Normochromic anemia: Monitor. Subjective: Patient was seen and examined at the bedside. Examination: General appearance: well-developed, appears stated age, no distress, obese HEENT: [place], atraumatic Neck: trachea midline Respiratory: Clear to Auscultation Heart: S1S2, regular, no murmur Abdomen: soft, obese, bowel sounds heard, NT Integumentary: no rash Neurologic: AO, able to move extremities Ext: no edema noted
[2021-02-08] MEDS: GABAPENTIN 300 MG CAP PO SCH (17:00)
[2021-02-08] MEDS: TOPIRAMATE TAB 25 MG TAB PO SCH (21:57)
[2021-02-08] MEDS: INSULIN GLARGINE 100 UNITS/ML SUB-Q SCH (22:02)
[2021-02-09] MEDS ORDERED: SODIUM CHLORIDE 0.9% 1000 ML 1,000 ML IV SCH (03:30)
[2021-02-09] MEDS: hydrALAZINE 25 MG TAB PO SCH ×3 (05:45→21:27)
[2021-02-09 06:23] LABS: Albumin 3.1 g/dL (3.9-5); Calcium 8.6 mg/dL (8.4-10.2)
[2021-02-09] MEDS: INSULIN LISPRO 100 UNIT/ML SUB-Q SCH ×4 (09:34→21:42)
[2021-02-09] MEDS: levETIRAcetam 500 MG TAB PO SCH ×2 (09:35→21:26)
[2021-02-09] MEDS: SENNOSIDES 8.6 MG TAB PO SCH ×2 (09:35→21:26)
[2021-02-09] MEDS: SERTRALINE 100 MG TAB PO SCH (09:35)
[2021-02-09] MEDS: APIXABAN 5 MG TAB PO SCH ×2 (09:35→21:26)
[2021-02-09] MEDS: ASPIRIN 325 MG TAB PO SCH (09:35)
[2021-02-09] MEDS: DOCUSATE SODIUM 100 MG CAP PO SCH ×2 (09:35→21:26)
[2021-02-09] MEDS: HYDROcodone/ACETAMINOPHEN 7.5-325MG TAB PO SCH ×3 (09:35→20:15)
[2021-02-09] MEDS: CITALOPRAM 20 MG TAB PO SCH (09:35)
[2021-02-09] MEDS: METOPROLOL TARTRATE 25 MG TAB PO SCH ×2 (09:36→21:26)
[2021-02-09] MEDS ORDERED: SODIUM CHLORIDE 0.45% 1000 ML 1,000 ML IV SCH (10:00)
--- NOTE | 2021-02-09 11:59 | Progress Note ---
Assessment and Plan Assessment and plan: #Acute CVA Continue aspirin 325 mg daily Statins Neurology follow up Started on eliquis for atrial fibrillation PT recommends rehab. Awaiting placement #VAL On IV hydration Vasomotor nephropathy Cr better today. Continue to avoid nephrotoxic medications. Nephrology recommendations appreciated #Atrial fibrillation Contiinue rate control Anticoagulation Cardiology recs appreciated. #Diabetes mellitus Lantus and sliding scale #Seizure disorder Keppra EEG shows no seizure activity Neurology recommendations appreciated # HTN Monitor BP DVT ppx -On eliquis Discussed with case management about discharge planning Case management working on placement History Interval history: 65-year-old female. The patient has a complex past medical history, including obesity, cholelithiasis, hydronephrosis, status post stent with stent removal, ejection fraction 55 to 60%, obesity, hypertension, seizure, stroke x2, with reported residual right-sided weakness, myocardial infarction, obstructive sleep apnea with home CPAP, and diabetes. She is sent to the emergency room by an outpatient neurology physician, a Dr. Néstor Olivera Apparently, the patient has been having complaints of headaches and feeling like she has been having an unsteady gait, since January 2020. An outpatient MRI was obtained today, through [facility] imaging services, and was reportedly found to have a stroke or subacute stroke of unknown duration or chronicity, but she was referred to the emergency room for evaluation. The patient complains of mild headache. She has chronic blurry vision. She denies chest pain. She has chronic shortness of breath. She denies hematemesis and bright red blood per rectum. She denies urinary symptoms. She denies cough. She complains of general weakness, but denies new/different weakness. 02/05/2021 Neurology consult appreciated MRI consistent with right CVA with left-sided weakness 02/06/2021 Patient is too weak and altered for PT and OT Left-sided weakness persists 02/07/2021 Patient with altered sensorium Left-sided weakness persists Patient had EEG which did not show any seizure activity 02/08. Started on anticoagulation for atrial fibrillation. Patient will need placement. Cardiology and neurology following 02/09. She has left-sided weakness. Continue current medications. Awaiting placement Hospitalist Physical - Physical exam Narrative exam: VITAL SIGNS: Reviewed. GENERAL: Awake HEAD: No signs of head trauma. EYES: Pupils are equal. Extraocular motions intact. MOUTH: Oropharynx is normal. NECK: No adenopathy, no JVD. CHEST: Chest with diminished breath sounds bilaterally. No wheezes, rales, or rhonchi. CARDIAC: normal S1 and S2, without murmurs, gallops, or rubs. ABDOMEN: Soft, non tender and non distended. No rebound or guarding, and no masses palpated. Bowel Sounds normal. MUSCULOSKELETAL: No edema NEUROLOGIC EXAM: Alert and oriented x3. Has left-sided weakness SKIN: No obvious lesions - Constitutional Vitals: Temp Pulse Resp BP Pulse Ox 98.5 F 80 20 140/85 99 02/09/21 05:09 02/09/21 09:37 02/09/21 08:00 02/09/21 09:37 02/09/21 05:09 HEART Score - HEART Score Troponin: Troponin T 0.033 ng/mL (0.00-0.029) H 02/04/21 20:09 Results - Labs CBC & Chem 7: 02/07/21 13:48 02/09/21 05:36 Labs: Laboratory Last Values WBC 6.3 K/mm3 (4.5-11.0) 02/07/21 13:48 RBC 3.81 M/mm3 (3.65-5.03) 02/07/21 13:48 Hgb 9.8 gm/dl (10.1-14.3) L 02/07/21 13:48 Hct 30.4 % (30.3-42.9) D 02/07/21 13:48 MCV 80 fl (79-97) 02/07/21 13:48 MCH 26 pg (28-32) L 02/07/21 13:48 MCHC 32 % (30-34) 02/07/21 13:48 RDW 16.8 % (13.2-15.2) H 02/07/21 13:48 Plt Count 214 K/mm3 (140-440) 02/07/21 13:48 Lymph % (Auto) 21.7 % (13.4-35.0) 02/04/21 15:13 Callahan % (Auto) 9.4 % (0.0-7.3) H 02/04/21 15:13 Eos % (Auto) 8.3 % (0.0-4.3) H 02/04/21 15:13 Baso % (Auto) 1.0 % (0.0-1.8) 02/04/21 15:13 Lymph # (Auto) 1.2 K/mm3 (1.2-5.4) 02/04/21 15:13 Callahan # (Auto) 0.5 K/mm3 (0.0-0.8) 02/04/21 15:13 Eos # (Auto) 0.5 K/mm3 (0.0-0.4) H 02/04/21 15:13 Baso # (Auto) 0.1 K/mm3 (0.0-0.1) 02/04/21 15:13 Seg Neutrophils % 59.6 % (40.0-70.0) 02/04/21 15:13 Seg Neutrophils # 3.3 K/mm3 (1.8-7.7) 02/04/21 15:13 PT 14.0 Sec. (12.2-14.9) 02/07/21 13:48 INR 1.09 (0.87-1.13) 02/07/21 13:48 APTT 30.2 Sec. (24.2-36.6) 02/07/21 13:48 Thrombin Time 17.1 Sec. (15.1-19.6) 02/04/21 15:13 Sodium 147 mmol/L (137-145) H 02/09/21 05:36 Potassium 4.1 mmol/L (3.6-5.0) 02/09/21 05:36 Chloride 113.8 mmol/L (98-107) H 02/09/21 05:36 Carbon Dioxide 23 mmol/L (22-30) 02/09/21 05:36 Anion Gap 14 mmol/L 02/09/21 05:36 BUN 44 mg/dL (7-17) H 02/09/21 05:36 Creatinine 1.8 mg/dL (0.6-1.2) H 02/09/21 05:36 Estimated GFR 34 ml/min 02/09/21 05:36 BUN/Creatinine Ratio 24 % 02/09/21 05:36 Glucose 137 mg/dL (65-100) H 02/09/21 05:36 POC Glucose 88 mg/dL (70-105) 02/09/21 08:33 Hemoglobin A1c 7.0 % (4-6) H 02/06/21 15:13 Calcium 8.6 mg/dL (8.4-10.2) 02/09/21 05:36 Magnesium 2.20 mg/dL (1.7-2.3) 02/08/21 05:29 Total Bilirubin 0.20 mg/dL (0.1-1.2) 02/09/21 05:36 AST 20 units/L (5-40) 02/09/21 05:36 ALT 23 units/L (7-56) 02/09/21 05:36 Alkaline Phosphatase 89 units/L (35-129) 02/09/21 05:36 Total Creatine Kinase 240 units/L (30-135) H 02/04/21 15:25 CK-MB (CK-2) 3.4 ng/mL (0.0-4.0) 02/04/21 15:13 CK-MB (CK-2) Rel Index 1.4 (0-4) 02/04/21 15:13 Troponin T 0.033 ng/mL (0.00-0.029) H 02/04/21 20:09 Total Protein 6.2 g/dL (6.3-8.2) L 02/09/21 05:36 Albumin 3.1 g/dL (3.9-5) L 02/09/21 05:36 Albumin/Globulin Ratio 1.0 % 02/09/21 05:36 Triglycerides 121 mg/dL (2-149) 02/04/21 15:13 Cholesterol 117 mg/dL (50-199) 02/04/21 15:13 LDL Cholesterol Direct 67 mg/dL (50-130) 02/04/21 15:13 HDL Cholesterol 32 mg/dL (40-59) L 02/04/21 15:13 Cholesterol/HDL Ratio 3.65 % 02/04/21 15:13 TSH 1.140 mlU/mL (0.270-4.200) 02/04/21 15:25 Urine Color Yellow (Yellow) 02/04/21 16:51 Urine Turbidity Clear (Clear) 02/04/21 16:51 Urine pH 5.0 (5.0-7.0) 02/04/21 16:51 Ur Specific [employer] 1.019 (1.003-1.030) 02/04/21 16:51 Urine Protein >500 mg/dL (Negative) 02/04/21 16:51 Urine Glucose (UA) Neg mg/dL (Negative) 02/04/21 16:51 Urine Ketones Tr mg/dL (Negative) 02/04/21 16:51 Urine Blood Neg (Negative) 02/04/21 16:51 Urine Nitrite Neg (Negative) 02/04/21 16:51 Ur Reducing Substances Not Reportable 02/04/21 16:51 Urine Bilirubin Neg (Negative) 02/04/21 16:51 Urine Ictotest Not Reportable 02/04/21 16:51 Urine Urobilinogen < 2.0 mg/dL (<2.0) 02/04/21 16:51 Ur Leukocyte Esterase Neg (Negative) 02/04/21 16:51 Urine WBC (Auto) 1.0 /HPF (0.0-6.0) 02/04/21 16:51 Urine RBC (Auto) 1.0 /HPF (0.0-6.0) 02/04/21 16:51 U Epithel Cells (Auto) 3.0 /HPF (0-13.0) 02/04/21 16:51 Urine Mucus Few /HPF 02/04/21 16:51 Coronavirus (PCR) Negative (Negative) 02/07/21 Unknown Tejeda/IV: Voiding Method External Female Catheter Active Medications - Current Medications Current Medications: Generic Name Dose Route Start Last Admin Trade Name Freq PRN Reason Stop Dose Admin Acetaminophen 650 mg 02/04/21 23:56 Acetaminophen 325 Mg Tab PO Q4H PRN Pain MILD(1-3)/Fever >100.5/FERNANDEZ Hydrocodone Bitart/Acetaminophen 1 each 02/05/21 08:00 02/09/21 09:35 Hydrocodone/Acetaminophen 7.5-325mg Tab PO 1 each TID TIM Administration Apixaban 5 mg 02/08/21 10:00 02/09/21 09:35 Apixaban 5 Mg Tab PO 5 mg Q12HR TIM Administration Protocol Aspirin 325 mg 02/05/21 10:00 02/09/21 09:35 Aspirin 325 Mg Tab PO 325 mg QDAY TIM Administration Atorvastatin Calcium 80 mg 02/05/21 22:00 02/08/21 21:57 Atorvastatin 40 Mg Tab PO 80 mg QHS TIM Administration Citalopram Hydrobromide 20 mg 02/07/21 10:00 02/09/21 09:35 Citalopram 20 Mg Tab PO 20 mg QDAY TIM Administration Docusate Sodium 100 mg 02/05/21 10:00 02/09/21 09:35 Docusate Sodium 100 Mg Cap PO 100 mg BID TIM Administration Gabapentin 300 mg 02/07/21 18:00 02/08/21 17:00 Gabapentin 300 Mg Cap PO 300 mg QPM TIM Administration Hydralazine HCl 25 mg 02/07/21 14:00 02/09/21 05:45 Hydralazine 25 Mg Tab PO 25 mg Q8HR TIM Administration Sodium Chloride 1,000 mls @ 75 mls/hr 02/09/21 10:00 Nacl 0.45% 1000 Ml IV DIRECT TIM Insulin Glargine 15 units 02/08/21 22:00 02/08/21 22:02 Insulin Glargine 100 Units/Ml SUB-Q 15 units QHS TIM Administration Insulin Human Lispro 0 unit 02/08/21 11:30 02/09/21 09:34 Insulin Lispro 100 Unit/Ml SUB-Q Not Given ACHS [facility] Protocol Isosorbide Mononitrate 60 mg 02/05/21 10:00 02/09/21 09:37 Isosorbide Mononitrate Er 60 Mg Tab PO 60 mg QDAY [facility] Administration Levetiracetam 500 mg 02/05/21 01:00 02/09/21 09:35 Levetiracetam 500 Mg Tab PO 500 mg BID TIM Administration Metoclopramide HCl 5 mg 02/05/21 00:30 Metoclopramide 10 Mg/2 Ml Inj IV Q6H PRN Nausea And Vomiting Metoprolol Tartrate 25 mg 02/05/21 01:00 02/09/21 09:36 Metoprolol Tartrate 25 Mg Tab PO 25 mg BID TIM Administration Morphine Sulfate 2 mg 02/05/21 00:12 Morphine 2 Mg/1 Ml Inj IV Q4H PRN Pain, Moderate (4-6) Ondansetron HCl 4 mg 02/05/21 00:12 Ondansetron 4 Mg/2 Ml Inj IV Q8H PRN Nausea And Vomiting Oxycodone/Acetaminophen 1 tab 02/05/21 00:03 Oxycodone /Acetaminophen 5-325mg Tab PO Q6H PRN Pain, Moderate (4-6) Senna 8.6 mg 02/05/21 10:00 02/09/21 09:35 Sennosides 8.6 Mg Tab PO 8.6 mg Q12HR TIM Administration Sertraline HCl 100 mg 02/05/21 10:00 02/09/21 09:35 Sertraline 100 Mg Tab PO 100 mg QDAY TIM Administration Sodium Chloride 10 ml 02/05/21 10:00 02/09/21 09:41 Sodium Chloride 0.9% 10 Ml Flush Syringe IV 10 ml BID TIM Administration Sodium Chloride 10 ml 02/05/21 00:12 Sodium Chloride 0.9% 10 Ml Flush Syringe IV PRN PRN LINE FLUSH Sumatriptan Succinate 100 mg 02/05/21 01:10 Sumatriptan Succinate 50 Mg Tab PO DAILY PRN Migraine Headache Topiramate 50 mg 02/06/21 22:00 02/08/21 21:57 Topiramate Tab 25 Mg Tab PO 50 mg QHS TIM Administration
--- NOTE | 2021-02-09 12:23 | Ultrasound Report ---
Renal ultrasound INDICATION: Acute renal failure FINDINGS: The right kidney measures 12 cm in length and the left kidney measures about 13 cm in lengt h. There is moderate right-sided hydronephrosis. No significant left hydronephrosis. Urinary bladder is fluid distended IMPRESSION: Moderate right hydronephrosis. Signer Name: Nate Hughes MD Signed: 02/09/2021 12:18 PM Workstation Name: [id number]
--- NOTE | 2021-02-09 14:55 | Progress Note ---
Assessment and Plan 1. Acute kidney injury: VAL superimposed on CKD. ?vasomotor VAL. Spilt function R 22.5% and L 77.5%. Renal US showed moderate R sided hydronephrosis (chronic). Bladder scan (02/09) 27 ml. Urine studies US ordered. Monitor renal function. Creatinine level is improving. Avoid nephrotoxic agents. Meds dosage based on GFR. 2. FEN: Hyperchloremia, monitor. Monitor lytes and volume status. 3. Acute CVA: MRI with acute infarction in R hemisphere. Followed by Neurology. 4. Elevated cardiac enzymes: Echo,EF#45-50%. Followed by Cards. 5. New onset A.fib: Eliquis. 6. DM type 2: HbA1C is #7. Monitor. 7. HTN: S/p permissive HTN. Monitor BP. Adjust meds as needed. 8. Recurrent headache: On Topamax 50 mg QHS. Followed by Neuro. 9. LANNY. 10. Hx of seizure: Keppra. 11. Normochromic anemia: Monitor. Subjective: Patient was seen and examined at the bedside. RN at the bedside. Examination: General appearance: well-developed, appears stated age, no distress, obese HEENT: LAURENCE, atraumatic Neck: trachea midline Respiratory: Clear to Auscultation Heart: S1S2, no murmur Abdomen: soft, obese, bowel sounds heard, NT Integumentary: no rash Neurologic: AO, able to move extremities Ext: no edema noted Subjective Date of service: 02/09/21 Principal diagnosis: Acute CVA, New Onset AF Objective - Vital Signs Vital signs: Vital Signs - 12hr 02/09/21 02/09/21 02/09/21 05:09 05:45 08:00 Temperature 98.5 F Pulse Rate 101 H 88 Respiratory 20 20 Rate Blood Pressure 140/85 143/85 O2 Sat by Pulse 99 Oximetry 02/09/21 02/09/21 02/09/21 09:36 09:37 14:35 Temperature Pulse Rate 88 80 81 Respiratory Rate Blood Pressure 140/85 140/85 106/78 O2 Sat by Pulse Oximetry - Lab 02/07/21 13:48 02/09/21 05:36 Most recent lab results Calcium 8.6 mg/dL (8.4-10.2) 02/09/21 05:36 Magnesium 2.20 mg/dL (1.7-2.3) 02/08/21 05:29 Medications & Allergies - Medications Allergies/Adverse Reactions: Allergies No Known Allergies Allergy (Verified 07/12/20 05:04) Home Medications: Home Medications Medication Instructions Recorded Confirmed Last Taken Type Gabapentin 300 mg PO TID 07/12/20 02/06/21 07/11/20 History Aspirin 325 mg PO QDAY 07/13/20 02/06/21 Unknown History Atorvastatin [Lipitor] 80 mg PO DAILY 07/13/20 02/06/21 Unknown History HYDROcodone/ACETAMINOPHEN 1 each PO TID 07/13/20 02/06/21 Unknown History [Hydrocodone-Acetamin 7.5-300] Sertraline [Zoloft] 100 mg PO QDAY 07/13/20 02/06/21 Unknown History levETIRAcetam [Keppra TAB] 500 mg PO BID 07/13/20 02/06/21 Unknown History ISOSORBIDE MONOnitrate [Imdur ER] 60 mg PO QDAY #30 tablet 07/19/20 02/06/21 Unknown Rx Metoprolol [Lopressor TAB] 25 mg PO BID #60 tablet 07/19/20 02/06/21 Unknown Rx hydrALAZINE [Apresoline TAB] 50 mg PO Q8HR #240 tablet 07/19/20 02/06/21 Unknown Rx Active Medications: Generic Name Dose Route Start Last Admin Trade Name Freq PRN Reason Stop Dose Admin Acetaminophen 650 mg 02/04/21 23:56 Acetaminophen 325 Mg Tab PO Q4H PRN Pain MILD(1-3)/Fever >100.5/FERNANDEZ Hydrocodone Bitart/Acetaminophen 1 each 02/05/21 08:00 02/09/21 14:31 Hydrocodone/Acetaminophen 7.5-325mg Tab PO 1 each TID TIM Administration Apixaban 5 mg 02/08/21 10:00 02/09/21 09:35 Apixaban 5 Mg Tab PO 5 mg Q12HR TIM Administration Protocol Aspirin 325 mg 02/05/21 10:00 02/09/21 09:35 Aspirin 325 Mg Tab PO 325 mg QDAY TIM Administration Atorvastatin Calcium 80 mg 02/05/21 22:00 02/08/21 21:57 Atorvastatin 40 Mg Tab PO 80 mg QHS TIM Administration Citalopram Hydrobromide 20 mg 02/07/21 10:00 02/09/21 09:35 Citalopram 20 Mg Tab PO 20 mg QDAY TIM Administration Docusate Sodium 100 mg 02/05/21 10:00 02/09/21 09:35 Docusate Sodium 100 Mg Cap PO 100 mg BID TIM Administration Gabapentin 300 mg 02/07/21 18:00 02/08/21 17:00 Gabapentin 300 Mg Cap PO 300 mg QPM TIM Administration Hydralazine HCl 25 mg 02/07/21 14:00 02/09/21 14:35 Hydralazine 25 Mg Tab PO 25 mg Q8HR TIM Administration Sodium Chloride 1,000 mls @ 75 mls/hr 02/09/21 10:00 Nacl 0.45% 1000 Ml IV DIRECT [facility] Insulin Glargine 15 units 02/08/21 22:00 02/08/21 22:02 Insulin Glargine 100 Units/Ml SUB-Q 15 units QHS [facility] Administration Insulin Human Lispro 0 unit 02/08/21 11:30 02/09/21 13:05 Insulin Lispro 100 Unit/Ml SUB-Q Not Given ACHS [facility] Protocol Isosorbide Mononitrate 60 mg 02/05/21 10:00 02/09/21 09:37 Isosorbide Mononitrate Er 60 Mg Tab PO 60 mg QDAY [facility] Administration Levetiracetam 500 mg 02/05/21 01:00 02/09/21 09:35 Levetiracetam 500 Mg Tab PO 500 mg BID TIM Administration Metoclopramide HCl 5 mg 02/05/21 00:30 Metoclopramide 10 Mg/2 Ml Inj IV Q6H PRN Nausea And Vomiting Metoprolol Tartrate 25 mg 02/05/21 01:00 02/09/21 09:36 Metoprolol Tartrate 25 Mg Tab PO 25 mg BID TIM Administration Morphine Sulfate 2 mg 02/05/21 00:12 Morphine 2 Mg/1 Ml Inj IV Q4H PRN Pain, Moderate (4-6) Ondansetron HCl 4 mg 02/05/21 00:12 Ondansetron 4 Mg/2 Ml Inj IV Q8H PRN Nausea And Vomiting Oxycodone/Acetaminophen 1 tab 02/05/21 00:03 Oxycodone /Acetaminophen 5-325mg Tab PO Q6H PRN Pain, Moderate (4-6) Senna 8.6 mg 02/05/21 10:00 02/09/21 09:35 Sennosides 8.6 Mg Tab PO 8.6 mg Q12HR TIM Administration Sertraline HCl 100 mg 02/05/21 10:00 02/09/21 09:35 Sertraline 100 Mg Tab PO 100 mg QDAY TIM Administration Sodium Chloride 10 ml 02/05/21 10:00 02/09/21 09:41 Sodium Chloride 0.9% 10 Ml Flush Syringe IV 10 ml BID TIM Administration Sodium Chloride 10 ml 02/05/21 00:12 Sodium Chloride 0.9% 10 Ml Flush Syringe IV PRN PRN LINE FLUSH Sumatriptan Succinate 100 mg 02/05/21 01:10 Sumatriptan Succinate 50 Mg Tab PO DAILY PRN Migraine Headache Topiramate 50 mg 02/06/21 22:00 02/08/21 21:57 Topiramate Tab 25 Mg Tab PO 50 mg QHS TIM Administration
[2021-02-09] MEDS: GABAPENTIN 300 MG CAP PO SCH (17:48)
[2021-02-09] MEDS: TOPIRAMATE TAB 25 MG TAB PO SCH (21:28)
[2021-02-09] MEDS: INSULIN GLARGINE 100 UNITS/ML SUB-Q SCH (21:41)
[2021-02-10] MEDS: hydrALAZINE 25 MG TAB PO SCH ×3 (05:15→21:05)
[2021-02-10 06:56] LABS: Albumin 2.9 g/dL (3.9-5); Calcium 8.7 mg/dL (8.4-10.2)
[2021-02-10] MEDS: HYDROcodone/ACETAMINOPHEN 7.5-325MG TAB PO SCH ×3 (08:27→20:30)
[2021-02-10] MEDS: INSULIN LISPRO 100 UNIT/ML SUB-Q SCH ×4 (08:46→22:14)
--- NOTE | 2021-02-10 08:50 | Progress Note ---
Assessment and Plan 1. Acute kidney injury: VAL superimposed on CKD. ?vasomotor VAL. Spilt function R 22.5% and L 77.5%. Renal US showed moderate R sided hydronephrosis (chronic). Bladder scan (02/09) 27 ml. Urine studies ordered. Monitor renal function. Creatinine level is improving. Avoid nephrotoxic agents. Meds dosage based on GFR. 2. FEN: Hyperchloremia, monitor. Monitor lytes and volume status. 3. Acute CVA: MRI with acute infarction in R hemisphere. Followed by Neurology. 4. Elevated cardiac enzymes: Echo,EF#45-50%. Followed by Cards. 5. New onset A.fib: Eliquis. 6. DM type 2: HbA1C is #7. Monitor. 7. HTN: S/p permissive HTN. Monitor BP. Adjust meds as needed. 8. Recurrent headache: On Topamax 50 mg QHS. Followed by Neuro. 9. LANNY. 10. Hx of seizure: Keppra. 11. Normochromic anemia: Monitor. Subjective: Patient was seen and examined at the bedside. RN at the bedside. Examination: General appearance: well-developed, appears stated age, no distress, obese HEENT: LAURENCE, atraumatic Neck: trachea midline Respiratory: Clear to Auscultation Heart: S1S2, no murmur Abdomen: soft, obese, bowel sounds heard, NT Integumentary: no rash Neurologic: Alert, conversing, able to move extremities Ext: no edema noted Subjective Date of service: 02/10/21 Principal diagnosis: Acute CVA, New Onset AF Objective - Vital Signs Vital signs: Vital Signs - 12hr 02/09/21 02/09/21 02/09/21 21:26 21:27 23:00 Temperature Pulse Rate 64 64 77 Respiratory Rate Blood Pressure 137/83 137/83 O2 Sat by Pulse Oximetry 02/09/21 02/10/21 02/10/21 23:41 03:54 05:15 Temperature 98.6 F 98.2 F Pulse Rate 70 87 87 Respiratory 20 18 Rate Blood Pressure 133/81 153/97 153/97 O2 Sat by Pulse 100 98 Oximetry - Lab 02/07/21 13:48 02/11/21 06:07 Most recent lab results Calcium 8.7 mg/dL (8.4-10.2) 02/10/21 06:01 Magnesium 2.20 mg/dL (1.7-2.3) 02/08/21 05:29 Medications & Allergies - Medications Allergies/Adverse Reactions: Allergies No Known Allergies Allergy (Verified 07/12/20 05:04) Home Medications: Home Medications Medication Instructions Recorded Confirmed Last Taken Type Gabapentin 300 mg PO TID 07/12/20 02/06/21 07/11/20 History Aspirin 325 mg PO QDAY 07/13/20 02/06/21 Unknown History Atorvastatin [Lipitor] 80 mg PO DAILY 07/13/20 02/06/21 Unknown History HYDROcodone/ACETAMINOPHEN 1 each PO TID 07/13/20 02/06/21 Unknown History [Hydrocodone-Acetamin 7.5-300] Sertraline [Zoloft] 100 mg PO QDAY 07/13/20 02/06/21 Unknown History levETIRAcetam [Keppra TAB] 500 mg PO BID 07/13/20 02/06/21 Unknown History ISOSORBIDE MONOnitrate [Imdur ER] 60 mg PO QDAY #30 tablet 07/19/20 02/06/21 Unknown Rx Metoprolol [Lopressor TAB] 25 mg PO BID #60 tablet 07/19/20 02/06/21 Unknown Rx hydrALAZINE [Apresoline TAB] 50 mg PO Q8HR #240 tablet 07/19/20 02/06/21 Unknown Rx Active Medications: Generic Name Dose Route Start Last Admin Trade Name Freq PRN Reason Stop Dose Admin Acetaminophen 650 mg 02/04/21 23:56 Acetaminophen 325 Mg Tab PO Q4H PRN Pain MILD(1-3)/Fever >100.5/FERNANDEZ Hydrocodone Bitart/Acetaminophen 1 each 02/05/21 08:00 02/10/21 08:27 Hydrocodone/Acetaminophen 7.5-325mg Tab PO 1 each TID TIM Administration Amlodipine Besylate 10 mg 02/10/21 10:00 Amlodipine 10 Mg Tab PO QDAY TIM Apixaban 5 mg 02/08/21 10:00 02/09/21 21:26 Apixaban 5 Mg Tab PO 5 mg Q12HR TIM Administration Protocol Aspirin 325 mg 02/05/21 10:00 02/09/21 09:35 Aspirin 325 Mg Tab PO 325 mg QDAY TIM Administration Atorvastatin Calcium 80 mg 02/05/21 22:00 02/09/21 21:28 Atorvastatin 40 Mg Tab PO 80 mg QHS TIM Administration Citalopram Hydrobromide 20 mg 02/07/21 10:00 02/09/21 09:35 Citalopram 20 Mg Tab PO 20 mg QDAY TIM Administration Docusate Sodium 100 mg 02/05/21 10:00 02/09/21 21:26 Docusate Sodium 100 Mg Cap PO 100 mg BID TIM Administration Gabapentin 300 mg 02/07/21 18:00 02/09/21 17:48 Gabapentin 300 Mg Cap PO 300 mg QPM TIM Administration Hydralazine HCl 25 mg 02/07/21 14:00 02/10/21 05:15 Hydralazine 25 Mg Tab PO 25 mg Q8HR TIM Administration Sodium Chloride 1,000 mls @ 75 mls/hr 02/09/21 10:00 Nacl 0.45% 1000 Ml IV DIRECT TIM Insulin Glargine 15 units 02/08/21 22:00 02/09/21 21:41 Insulin Glargine 100 Units/Ml SUB-Q 15 units QHS [facility] Administration Insulin Human Lispro 0 unit 02/08/21 11:30 02/10/21 08:46 Insulin Lispro 100 Unit/Ml SUB-Q Not Given ACHS [facility] Protocol Isosorbide Mononitrate 60 mg 02/05/21 10:00 02/09/21 09:37 Isosorbide Mononitrate Er 60 Mg Tab PO 60 mg QDAY [facility] Administration Levetiracetam 500 mg 02/05/21 01:00 02/09/21 21:26 Levetiracetam 500 Mg Tab PO 500 mg BID TIM Administration Metoclopramide HCl 5 mg 02/05/21 00:30 Metoclopramide 10 Mg/2 Ml Inj IV Q6H PRN Nausea And Vomiting Metoprolol Tartrate 25 mg 02/05/21 01:00 02/09/21 21:26 Metoprolol Tartrate 25 Mg Tab PO 25 mg BID TIM Administration Morphine Sulfate 2 mg 02/05/21 00:12 Morphine 2 Mg/1 Ml Inj IV Q4H PRN Pain, Moderate (4-6) Ondansetron HCl 4 mg 02/05/21 00:12 Ondansetron 4 Mg/2 Ml Inj IV Q8H PRN Nausea And Vomiting Oxycodone/Acetaminophen 1 tab 02/05/21 00:03 Oxycodone /Acetaminophen 5-325mg Tab PO Q6H PRN Pain, Moderate (4-6) Senna 8.6 mg 02/05/21 10:00 02/09/21 21:26 Sennosides 8.6 Mg Tab PO 8.6 mg Q12HR TIM Administration Sertraline HCl 100 mg 02/05/21 10:00 02/09/21 09:35 Sertraline 100 Mg Tab PO 100 mg QDAY TIM Administration Sodium Chloride 10 ml 02/05/21 10:00 02/09/21 21:28 Sodium Chloride 0.9% 10 Ml Flush Syringe IV 10 ml BID TIM Administration Sodium Chloride 10 ml 02/05/21 00:12 Sodium Chloride 0.9% 10 Ml Flush Syringe IV PRN PRN LINE FLUSH Sumatriptan Succinate 100 mg 02/05/21 01:10 Sumatriptan Succinate 50 Mg Tab PO DAILY PRN Migraine Headache Topiramate 50 mg 02/06/21 22:00 02/09/21 21:28 Topiramate Tab 25 Mg Tab PO 50 mg QHS TIM Administration
[2021-02-10] MEDS: DOCUSATE SODIUM 100 MG CAP PO SCH ×2 (09:10→21:05)
[2021-02-10] MEDS: SERTRALINE 100 MG TAB PO SCH (09:10)
[2021-02-10] MEDS: SENNOSIDES 8.6 MG TAB PO SCH ×2 (09:10→21:05)
[2021-02-10] MEDS: ASPIRIN 325 MG TAB PO SCH (09:11)
[2021-02-10] MEDS: levETIRAcetam 500 MG TAB PO SCH ×2 (09:11→21:08)
[2021-02-10] MEDS: APIXABAN 5 MG TAB PO SCH ×2 (09:11→21:07)
[2021-02-10] MEDS: METOPROLOL TARTRATE 25 MG TAB PO SCH ×2 (09:12→20:30)
[2021-02-10] MEDS: CITALOPRAM 20 MG TAB PO SCH (09:12)
[2021-02-10] MEDS: amLODIPine 10 MG TAB PO SCH (09:14)
--- NOTE | 2021-02-10 09:25 | Progress Note ---
Assessment and Plan Continue Eliquis. Continue other present cardiac mgmt. Initiation of ACEi/ARB (given DM2) may be considered as an outpatient when renal fxn has improved. Otherwise stable cardiac status. Will see PRN. Recommend follow-up with Dr. DRISS Vaughn within 1-2 weeks of discharge ([phone]). Pt seen in conjunction with Dr. Granger, who agrees with the assessment and plan of care. - Patient Problems (1) Ischemic cerebrovascular accident (CVA) Current Visit: Yes Status: Acute (2) Atrial fibrillation Current Visit: Yes Status: Chronic Qualifiers: Atrial fibrillation type: unspecified Qualified Code(s): I48.91 - Unspecified atrial fibrillation Plan to address problem: ?New onset (3) NSVT (nonsustained ventricular tachycardia) Current Visit: Yes Status: Acute Plan to address problem: 4-beat run noted 02/07 @ 0415 (pt asymptomatic) (4) VAL (acute kidney injury) Current Visit: Yes Status: Acute (5) Elevated troponin Current Visit: Yes Status: Acute Plan to address problem: -Minimally elevated troponin in the setting of acute CVA & VAL -Pt denies chest pain -No acute ischemic changes on ECG (6) CAD (coronary artery disease) Current Visit: Yes Status: Chronic Qualifiers: Coronary Disease-Associated Artery/Lesion type: [place] artery [place] vs. transplanted heart: [place] heart Plan to address problem: ?H/o MO per pt report (7) LANNY (obstructive sleep apnea) Current Visit: Yes Status: Chronic (8) HTN (hypertension) Current Visit: Yes Status: Chronic Qualifiers: Hypertension type: essential hypertension Qualified Code(s): I10 - Essential (primary) hypertension (9) DM2 (diabetes mellitus, type 2) Status: Chronic (10) Seizure disorder Current Visit: Yes Status: Chronic (11) History of CVA (cerebrovascular accident) Current Visit: Yes Status: Chronic Subjective Date of service: 02/09/21 Principal diagnosis: Acute CVA, New Onset AF Interval history: No cardiac complaints. AF 80s on tele w/compensatory pauses. Objective Last Vital Signs Temp 98.5 F 02/09/21 05:09 Pulse 88 02/09/21 15:00 Resp 20 02/09/21 08:00 BP 106/78 02/09/21 14:35 Pulse Ox 99 02/09/21 05:09 - Physical Examination General: No Apparent Distress HEENT: Positive: Normocephaly, Mucus Membranes Moist Neck: Positive: neck supple, trachea midline. Negative: JVD/HJR Cardiac: Positive: irregularly irregular, S1/S2 Lungs: Positive: clear to auscultation Neuro: Positive: Weakness (left-sided) Abdomen: Positive: Soft. Negative: Tender Skin: Negative: Rash Musculoskeletal: No Pain Extremities: Present: upper extr. pulses, lower extr. pulses. Absent: edema - Labs and Meds Cardiac Enzymes 02/09/21 Range/Units 05:36 AST 20 (5-40) units/L Comprehensive Metabolic Panel 02/09/21 Range/Units 05:36 Sodium 147 H (137-145) mmol/L Potassium 4.1 (3.6-5.0) mmol/L Chloride 113.8 H (98-107) mmol/L Carbon Dioxide 23 (22-30) mmol/L BUN 44 H (7-17) mg/dL Creatinine 1.8 H (0.6-1.2) mg/dL Glucose 137 H (65-100) mg/dL Calcium 8.6 (8.4-10.2) mg/dL AST 20 (5-40) units/L ALT 23 (7-56) units/L Alkaline Phosphatase 89 (35-129) units/L Total Protein 6.2 L (6.3-8.2) g/dL Albumin 3.1 L (3.9-5) g/dL - Imaging and Cardiology EKG: report reviewed, image reviewed Echo: report reviewed (02/05/2021 - negative bubble study, severe concentric LVH, EF 45-50%, trace pericardial effusion), other (06/2020 - mild-mod concentric LVH, EF 55-60%, impaired LV relaxation, trace AR) - Telemetry EKG Rhythm: Atrial Fibrillation - EKG Supraventricular dysrhythmia: atrial fibrillation
--- NOTE | 2021-02-10 11:00 | Progress Note ---
Assessment and Plan Assessment and plan: #Acute CVA Continue aspirin 325 mg daily Statins Neurology follow up Continue eliquis for atrial fibrillation PT recommends rehab. Awaiting placement #VAL On IV hydration Vasomotor nephropathy Continues to improve Continue to avoid nephrotoxic medications. Nephrology recommendations appreciated #Atrial fibrillation Contiinue rate control Anticoagulation with eliquis Cardiology recs appreciated. Willl follow up with cardiology in 1-2 weeks after discharge #Diabetes mellitus Lantus and sliding scale #Seizure disorder Keppra EEG shows no seizure activity Neurology recommendations appreciated # HTN Monitor BP DVT ppx -On eliquis Discussed with case management about discharge planning Case management working on placement History Interval history: 65-year-old female. The patient has a complex past medical history, including obesity, cholelithiasis, hydronephrosis, status post stent with stent removal, ejection fraction 55 to 60%, obesity, hypertension, seizure, stroke x2, with reported residual right-sided weakness, myocardial infarction, obstructive sleep apnea with home CPAP, and diabetes. She is sent to the emergency room by an outpatient neurology physician, a Dr. Néstor Olivera Apparently, the patient has been having complaints of headaches and feeling like she has been having an unsteady gait, since January 2020. An outpatient MRI was obtained today, through [facility] imaging services, and was reportedly found to have a stroke or subacute stroke of unknown duration or chronicity, but she was referred to the emergency room for evaluation. The patient complains of mild headache. She has chronic blurry vision. She denies chest pain. She has chronic shortness of breath. She denies hematemesis and bright red blood per rectum. She denies urinary symptoms. She denies cough. She complains of general weakness, but denies new/different weakness. 02/05/2021 Neurology consult appreciated MRI consistent with right CVA with left-sided weakness 02/06/2021 Patient is too weak and altered for PT and OT Left-sided weakness persists 02/07/2021 Patient with altered sensorium Left-sided weakness persists Patient had EEG which did not show any seizure activity 02/08. Started on anticoagulation for atrial fibrillation. Patient will need placement. Cardiology and neurology following 02/09. She has left-sided weakness. Continue current medications. Awaiting placement 02/10. No complaints. Needs placement. Vitals stable. Cardiology follow up in the office in 1-2 weeks advised Hospitalist Physical - Physical exam Narrative exam: VITAL SIGNS: Reviewed. GENERAL: Awake HEAD: No signs of head trauma. EYES: Pupils are equal. Extraocular motions intact. MOUTH: Oropharynx is normal. NECK: No adenopathy, no JVD. CHEST: Chest with diminished breath sounds bilaterally. No wheezes, rales, or rhonchi. CARDIAC: normal S1 and S2, without murmurs, gallops, or rubs. ABDOMEN: Soft, non tender and non distended. No rebound or guarding, and no masses palpated. Bowel Sounds normal. MUSCULOSKELETAL: No edema NEUROLOGIC EXAM: Alert and oriented x3. Has left-sided weakness SKIN: No obvious lesions - Constitutional Vitals: Temp Pulse Resp BP Pulse Ox 98.2 F 94 H 18 152/83 98 02/10/21 03:54 02/10/21 09:14 02/10/21 03:54 02/10/21 09:14 02/10/21 03:54 HEART Score - HEART Score Troponin: Troponin T 0.033 ng/mL (0.00-0.029) H 02/04/21 20:09 Results - Labs CBC & Chem 7: 02/07/21 13:48 02/10/21 06:01 Labs: Laboratory Last Values WBC 6.3 K/mm3 (4.5-11.0) 02/07/21 13:48 RBC 3.81 M/mm3 (3.65-5.03) 02/07/21 13:48 Hgb 9.8 gm/dl (10.1-14.3) L 02/07/21 13:48 Hct 30.4 % (30.3-42.9) D 02/07/21 13:48 MCV 80 fl (79-97) 02/07/21 13:48 MCH 26 pg (28-32) L 02/07/21 13:48 MCHC 32 % (30-34) 02/07/21 13:48 RDW 16.8 % (13.2-15.2) H 02/07/21 13:48 Plt Count 214 K/mm3 (140-440) 02/07/21 13:48 Lymph % (Auto) 21.7 % (13.4-35.0) 02/04/21 15:13 [place] % (Auto) 9.4 % (0.0-7.3) H 02/04/21 15:13 Eos % (Auto) 8.3 % (0.0-4.3) H 02/04/21 15:13 Baso % (Auto) 1.0 % (0.0-1.8) 02/04/21 15:13 Lymph # (Auto) 1.2 K/mm3 (1.2-5.4) 02/04/21 15:13 [place] # (Auto) 0.5 K/mm3 (0.0-0.8) 02/04/21 15:13 Eos # (Auto) 0.5 K/mm3 (0.0-0.4) H 02/04/21 15:13 Baso # (Auto) 0.1 K/mm3 (0.0-0.1) 02/04/21 15:13 Seg Neutrophils % 59.6 % (40.0-70.0) 02/04/21 15:13 Seg Neutrophils # 3.3 K/mm3 (1.8-7.7) 02/04/21 15:13 PT 14.0 Sec. (12.2-14.9) 02/07/21 13:48 INR 1.09 (0.87-1.13) 02/07/21 13:48 APTT 30.2 Sec. (24.2-36.6) 02/07/21 13:48 Thrombin Time 17.1 Sec. (15.1-19.6) 02/04/21 15:13 Sodium 145 mmol/L (137-145) 02/10/21 06:01 Potassium 4.1 mmol/L (3.6-5.0) 02/10/21 06:01 Chloride 111.5 mmol/L (98-107) H 02/10/21 06:01 Carbon Dioxide 24 mmol/L (22-30) 02/10/21 06:01 Anion Gap 14 mmol/L 02/10/21 06:01 BUN 40 mg/dL (7-17) H 02/10/21 06:01 Creatinine 1.7 mg/dL (0.6-1.2) H 02/10/21 06:01 Estimated GFR 37 ml/min 02/10/21 06:01 BUN/Creatinine Ratio 24 % 02/10/21 06:01 Glucose 130 mg/dL (65-100) H 02/10/21 06:01 POC Glucose 125 mg/dL (70-105) H 02/09/21 21:08 Hemoglobin A1c 7.0 % (4-6) H 02/06/21 15:13 Calcium 8.7 mg/dL (8.4-10.2) 02/10/21 06:01 Magnesium 2.20 mg/dL (1.7-2.3) 02/08/21 05:29 Total Bilirubin 0.20 mg/dL (0.1-1.2) 02/10/21 06:01 AST 15 units/L (5-40) 02/10/21 06:01 ALT 18 units/L (7-56) 02/10/21 06:01 Alkaline Phosphatase 82 units/L (35-129) 02/10/21 06:01 Total Creatine Kinase 240 units/L (30-135) H 02/04/21 15:25 CK-MB (CK-2) 3.4 ng/mL (0.0-4.0) 02/04/21 15:13 CK-MB (CK-2) Rel Index 1.4 (0-4) 02/04/21 15:13 Troponin T 0.033 ng/mL (0.00-0.029) H 02/04/21 20:09 Total Protein 6.2 g/dL (6.3-8.2) L 02/10/21 06:01 Albumin 2.9 g/dL (3.9-5) L 02/10/21 06:01 Albumin/Globulin Ratio 0.9 % 02/10/21 06:01 Triglycerides 121 mg/dL (2-149) 02/04/21 15:13 Cholesterol 117 mg/dL (50-199) 02/04/21 15:13 LDL Cholesterol Direct 67 mg/dL (50-130) 02/04/21 15:13 HDL Cholesterol 32 mg/dL (40-59) L 02/04/21 15:13 Cholesterol/HDL Ratio 3.65 % 02/04/21 15:13 TSH 1.140 mlU/mL (0.270-4.200) 02/04/21 15:25 Urine Color Yellow (Yellow) 02/04/21 16:51 Urine Turbidity Clear (Clear) 02/04/21 16:51 Urine pH 5.0 (5.0-7.0) 02/04/21 16:51 Ur Specific [place] 1.019 (1.003-1.030) 02/04/21 16:51 Urine Protein >500 mg/dL (Negative) 02/04/21 16:51 Urine Glucose (UA) Neg mg/dL (Negative) 02/04/21 16:51 Urine Ketones Tr mg/dL (Negative) 02/04/21 16:51 Urine Blood Neg (Negative) 02/04/21 16:51 Urine Nitrite Neg (Negative) 02/04/21 16:51 Ur Reducing Substances Not Reportable 02/04/21 16:51 Urine Bilirubin Neg (Negative) 02/04/21 16:51 Urine Ictotest Not Reportable 02/04/21 16:51 Urine Urobilinogen < 2.0 mg/dL (<2.0) 02/04/21 16:51 Ur Leukocyte Esterase Neg (Negative) 02/04/21 16:51 Urine WBC (Auto) 1.0 /HPF (0.0-6.0) 02/04/21 16:51 Urine RBC (Auto) 1.0 /HPF (0.0-6.0) 02/04/21 16:51 U Epithel Cells (Auto) 3.0 /HPF (0-13.0) 02/04/21 16:51 Urine Mucus Few /HPF 02/04/21 16:51 Coronavirus (PCR) Negative (Negative) 02/07/21 Unknown Tejeda/IV: Voiding Method Toilet Active Medications - Current Medications Current Medications: Generic Name Dose Route Start Last Admin Trade Name Freq PRN Reason Stop Dose Admin Acetaminophen 650 mg 02/04/21 23:56 Acetaminophen 325 Mg Tab PO Q4H PRN Pain MILD(1-3)/Fever >100.5/FERNANDEZ Hydrocodone Bitart/Acetaminophen 1 each 02/05/21 08:00 02/10/21 08:27 Hydrocodone/Acetaminophen 7.5-325mg Tab PO 1 each TID TIM Administration Amlodipine Besylate 10 mg 02/10/21 10:00 02/10/21 09:14 Amlodipine 10 Mg Tab PO 10 mg QDAY TIM Administration Apixaban 5 mg 02/08/21 10:00 02/10/21 09:11 Apixaban 5 Mg Tab PO 5 mg Q12HR TIM Administration Protocol Aspirin 325 mg 02/05/21 10:00 02/10/21 09:11 Aspirin 325 Mg Tab PO 325 mg QDAY TIM Administration Atorvastatin Calcium 80 mg 02/05/21 22:00 02/09/21 21:28 Atorvastatin 40 Mg Tab PO 80 mg QHS TIM Administration Citalopram Hydrobromide 20 mg 02/07/21 10:00 02/10/21 09:12 Citalopram 20 Mg Tab PO 20 mg QDAY TIM Administration Docusate Sodium 100 mg 02/05/21 10:00 02/10/21 09:10 Docusate Sodium 100 Mg Cap PO 100 mg BID TIM Administration Gabapentin 300 mg 02/07/21 18:00 02/09/21 17:48 Gabapentin 300 Mg Cap PO 300 mg QPM TIM Administration Hydralazine HCl 25 mg 02/07/21 14:00 02/10/21 05:15 Hydralazine 25 Mg Tab PO 25 mg Q8HR TIM Administration Sodium Chloride 1,000 mls @ 75 mls/hr 02/09/21 10:00 Nacl 0.45% 1000 Ml IV DIRECT [facility] Insulin Glargine 15 units 02/08/21 22:00 02/09/21 21:41 Insulin Glargine 100 Units/Ml SUB-Q 15 units QHS [facility] Administration Insulin Human Lispro 0 unit 02/08/21 11:30 02/10/21 08:46 Insulin Lispro 100 Unit/Ml SUB-Q Not Given ACHS [facility] Protocol Isosorbide Mononitrate 60 mg 02/05/21 10:00 02/10/21 09:11 Isosorbide Mononitrate Er 60 Mg Tab PO 60 mg QDAY [facility] Administration Levetiracetam 500 mg 02/05/21 01:00 02/10/21 09:11 Levetiracetam 500 Mg Tab PO 500 mg BID TIM Administration Metoclopramide HCl 5 mg 02/05/21 00:30 Metoclopramide 10 Mg/2 Ml Inj IV Q6H PRN Nausea And Vomiting Metoprolol Tartrate 25 mg 02/05/21 01:00 02/10/21 09:12 Metoprolol Tartrate 25 Mg Tab PO 25 mg BID TIM Administration Morphine Sulfate 2 mg 02/05/21 00:12 Morphine 2 Mg/1 Ml Inj IV Q4H PRN Pain, Moderate (4-6) Ondansetron HCl 4 mg 02/05/21 00:12 Ondansetron 4 Mg/2 Ml Inj IV Q8H PRN Nausea And Vomiting Oxycodone/Acetaminophen 1 tab 02/05/21 00:03 Oxycodone /Acetaminophen 5-325mg Tab PO Q6H PRN Pain, Moderate (4-6) Senna 8.6 mg 02/05/21 10:00 02/10/21 09:10 Sennosides 8.6 Mg Tab PO 8.6 mg Q12HR TIM Administration Sertraline HCl 100 mg 02/05/21 10:00 02/10/21 09:10 Sertraline 100 Mg Tab PO 100 mg QDAY TIM Administration Sodium Chloride 10 ml 02/05/21 10:00 02/10/21 09:13 Sodium Chloride 0.9% 10 Ml Flush Syringe IV 10 ml BID TIM Administration Sodium Chloride 10 ml 02/05/21 00:12 Sodium Chloride 0.9% 10 Ml Flush Syringe IV PRN PRN LINE FLUSH Sumatriptan Succinate 100 mg 02/05/21 01:10 Sumatriptan Succinate 50 Mg Tab PO DAILY PRN Migraine Headache Topiramate 50 mg 02/06/21 22:00 02/09/21 21:28 Topiramate Tab 25 Mg Tab PO 50 mg QHS TIM Administration
[2021-02-10] MEDS: GABAPENTIN 300 MG CAP PO SCH (18:23)
[2021-02-10] MEDS: TOPIRAMATE TAB 25 MG TAB PO SCH (21:05)
[2021-02-10] MEDS: INSULIN GLARGINE 100 UNITS/ML SUB-Q SCH (21:08)
[2021-02-11] MEDS: hydrALAZINE 25 MG TAB PO SCH ×3 (06:22→21:54)
[2021-02-11 07:18] LABS: Albumin 3.1 g/dL (3.9-5); Calcium 8.9 mg/dL (8.4-10.2)
[2021-02-11] MEDS: HYDROcodone/ACETAMINOPHEN 7.5-325MG TAB PO SCH ×3 (08:53→21:54)
[2021-02-11] MEDS: METOPROLOL TARTRATE 25 MG TAB PO SCH ×3 (08:54→21:54)
[2021-02-11] MEDS: INSULIN LISPRO 100 UNIT/ML SUB-Q SCH ×4 (08:54→21:55)
[2021-02-11] MEDS: SERTRALINE 100 MG TAB PO SCH (09:02)
[2021-02-11] MEDS: levETIRAcetam 500 MG TAB PO SCH ×2 (09:02→21:54)
[2021-02-11] MEDS: APIXABAN 5 MG TAB PO SCH ×2 (09:02→21:54)
[2021-02-11] MEDS: DOCUSATE SODIUM 100 MG CAP PO SCH ×2 (09:02→21:54)
[2021-02-11] MEDS: SENNOSIDES 8.6 MG TAB PO SCH ×2 (09:02→21:54)
[2021-02-11] MEDS: amLODIPine 10 MG TAB PO SCH (09:03)
[2021-02-11] MEDS: ASPIRIN 325 MG TAB PO SCH (09:04)
[2021-02-11] MEDS: CITALOPRAM 20 MG TAB PO SCH (09:04)
--- NOTE | 2021-02-11 09:46 | Progress Note ---
Assessment and Plan Assessment and plan: #Acute CVA Continue aspirin 325 mg daily Statins Neurology follow up Continue eliquis for atrial fibrillation PT recommends rehab. Awaiting placement #VAL Vasomotor nephropathy Continues to improve Continue to avoid nephrotoxic medications. Nephrology recommendations appreciated #Atrial fibrillation Continue metoprolol Anticoagulation with eliquis Cardiology recs appreciated. Willl follow up with cardiology in 1-2 weeks after discharge #Diabetes mellitus Lantus and sliding scale #History of Seizure disorder Keppra EEG shows no seizure activity Neurology recommendations appreciated # HTN Monitor BP DVT ppx -On eliquis Discussed with case management about discharge planning Case management working on placement History Interval history: 65-year-old female. The patient has a complex past medical history, including obesity, cholelithiasis, hydronephrosis, status post stent with stent removal, ejection fraction 55 to 60%, obesity, hypertension, seizure, stroke x2, with reported residual right-sided weakness, myocardial infarction, obstructive sleep apnea with home CPAP, and diabetes. She is sent to the emergency room by an outpatient neurology physician, a Dr. Néstor Olivera Apparently, the patient has been having complaints of headaches and feeling like she has been having an unsteady gait, since January 2020. An outpatient MRI was obt ained today, through [facility] imaging services, and was reportedly found to have a stroke or subacute stroke of unknown duration or chronicity, but she was referred to the emergency room for evaluation. The patient complains of mild headache. She has chronic blurry vision. She denies chest pain. She has chronic shortness of breath. She denies hematemesis and bright red blood per rectum. She denies urinary symptoms. She denies cough. She complains of general weakness, but denies new/different weakness. 02/05/2021 Neurology consult appreciated MRI consistent with right CVA with left-sided weakness 02/06/2021 Patient is too weak and altered for PT and OT Left-sided weakness persists 02/07/2021 Patient with altered sensorium Left-sided weakness persists Patient had EEG which did not show any seizure activity 02/08. Started on anticoagulation for atrial fibrillation. Patient will need placement. Cardiology and neurology following 02/09. She has left-sided weakness. Continue current medications. Awaiting placement 02/10. No complaints. Needs placement. Vitals stable. Cardiology follow up in the office in 1-2 weeks advised 02/11. Has no complaints. Still has left-sided weakness. Waiting for placement. Remains on metoprolol for heart rate control. On Eliquis. Awaiting placement. Had P2P with insurance rep today Hospitalist Physical - Physical exam Narrative exam: VITAL SIGNS: Reviewed. GENERAL: Awake HEAD: No signs of head trauma. EYES: Pupils are equal. Extraocular motions intact. MOUTH: Oropharynx is normal. NECK: No adenopathy, no JVD. CHEST: Chest with diminished breath sounds bilaterally. No wheezes, rales, or rhonchi. CARDIAC: normal S1 and S2, without murmurs, gallops, or rubs. ABDOMEN: Soft, non tender and non distended. No rebound or guarding, and no masses palpated. Bowel Sounds normal. MUSCULOSKELETAL: No edema NEUROLOGIC EXAM: Alert and oriented x3. Has left-sided weakness SKIN: No obvious lesions - Constitutional Vitals: Temp Pulse Resp BP Pulse Ox 97.4 F L 110 H 20 159/90 98 02/11/21 08:05 02/11/21 09:03 02/11/21 08:05 02/11/21 09:03 02/11/21 08:05 HEART Score - HEART Score Troponin: Troponin T 0.033 ng/mL (0.00-0.029) H 02/04/21 20:09 Results - Labs CBC & Chem 7: 02/07/21 13:48 02/11/21 06:07 Labs: Laboratory Last Values WBC 6.3 K/mm3 (4.5-11.0) 02/07/21 13:48 RBC 3.81 M/mm3 (3.65-5.03) 02/07/21 13:48 Hgb 9.8 gm/dl (10.1-14.3) L 02/07/21 13:48 Hct 30.4 % (30.3-42.9) D 02/07/21 13:48 MCV 80 fl (79-97) 02/07/21 13:48 MCH 26 pg (28-32) L 02/07/21 13:48 MCHC 32 % (30-34) 02/07/21 13:48 RDW 16.8 % (13.2-15.2) H 02/07/21 13:48 Plt Count 214 K/mm3 (140-440) 02/07/21 13:48 Lymph % (Auto) 21.7 % (13.4-35.0) 02/04/21 15:13 [place] % (Auto) 9.4 % (0.0-7.3) H 02/04/21 15:13 Eos % (Auto) 8.3 % (0.0-4.3) H 02/04/21 15:13 Baso % (Auto) 1.0 % (0.0-1.8) 02/04/21 15:13 Lymph # (Auto) 1.2 K/mm3 (1.2-5.4) 02/04/21 15:13 [place] # (Auto) 0.5 K/mm3 (0.0-0.8) 02/04/21 15:13 Eos # (Auto) 0.5 K/mm3 (0.0-0.4) H 02/04/21 15:13 Baso # (Auto) 0.1 K/mm3 (0.0-0.1) 02/04/21 15:13 Seg Neutrophils % 59.6 % (40.0-70.0) 02/04/21 15:13 Seg Neutrophils # 3.3 K/mm3 (1.8-7.7) 02/04/21 15:13 PT 14.0 Sec. (12.2-14.9) 02/07/21 13:48 INR 1.09 (0.87-1.13) 02/07/21 13:48 APTT 30.2 Sec. (24.2-36.6) 02/07/21 13:48 Thrombin Time 17.1 Sec. (15.1-19.6) 02/04/21 15:13 Sodium 145 mmol/L (137-145) 02/11/21 06:07 Potassium 3.8 mmol/L (3.6-5.0) 02/11/21 06:07 Chloride 110.9 mmol/L (98-107) H 02/11/21 06:07 Carbon Dioxide 26 mmol/L (22-30) 02/11/21 06:07 Anion Gap 12 mmol/L 02/11/21 06:07 BUN 32 mg/dL (7-17) H 02/11/21 06:07 Creatinine 1.5 mg/dL (0.6-1.2) H 02/11/21 06:07 Estimated GFR 42 ml/min 02/11/21 06:07 BUN/Creatinine Ratio 21 % 02/11/21 06:07 Glucose 82 mg/dL (65-100) 02/11/21 06:07 POC Glucose 135 mg/dL (70-105) H 02/10/21 20:58 Hemoglobin A1c 7.0 % (4-6) H 02/06/21 15:13 Calcium 8.9 mg/dL (8.4-10.2) 02/11/21 06:07 Magnesium 2.20 mg/dL (1.7-2.3) 02/08/21 05:29 Total Bilirubin 0.20 mg/dL (0.1-1.2) 02/11/21 06:07 AST 13 units/L (5-40) 02/11/21 06:07 ALT 15 units/L (7-56) 02/11/21 06:07 Alkaline Phosphatase 76 units/L (35-129) 02/11/21 06:07 Total Creatine Kinase 240 units/L (30-135) H 02/04/21 15:25 CK-MB (CK-2) 3.4 ng/mL (0.0-4.0) 02/04/21 15:13 CK-MB (CK-2) Rel Index 1.4 (0-4) 02/04/21 15:13 Troponin T 0.033 ng/mL (0.00-0.029) H 02/04/21 20:09 Total Protein 5.5 g/dL (6.3-8.2) L 02/11/21 06:07 Albumin 3.1 g/dL (3.9-5) L 02/11/21 06:07 Albumin/Globulin Ratio 1.3 % 02/11/21 06:07 Triglycerides 121 mg/dL (2-149) 02/04/21 15:13 Cholesterol 117 mg/dL (50-199) 02/04/21 15:13 LDL Cholesterol Direct 67 mg/dL (50-130) 02/04/21 15:13 HDL Cholesterol 32 mg/dL (40-59) L 02/04/21 15:13 Cholesterol/HDL Ratio 3.65 % 02/04/21 15:13 TSH 1.140 mlU/mL (0.270-4.200) 02/04/21 15:25 Urine Color Yellow (Yellow) 02/04/21 16:51 Urine Turbidity Clear (Clear) 02/04/21 16:51 Urine pH 5.0 (5.0-7.0) 02/04/21 16:51 Ur Specific [place] 1.019 (1.003-1.030) 02/04/21 16:51 Urine Protein >500 mg/dL (Negative) 02/04/21 16:51 Urine Glucose (UA) Neg mg/dL (Negative) 02/04/21 16:51 Urine Ketones Tr mg/dL (Negative) 02/04/21 16:51 Urine Blood Neg (Negative) 02/04/21 16:51 Urine Nitrite Neg (Negative) 02/04/21 16:51 Ur Reducing Substances Not Reportable 02/04/21 16:51 Urine Bilirubin Neg (Negative) 02/04/21 16:51 Urine Ictotest Not Reportable 02/04/21 16:51 Urine Urobilinogen < 2.0 mg/dL (<2.0) 02/04/21 16:51 Ur Leukocyte Esterase Neg (Negative) 02/04/21 16:51 Urine WBC (Auto) 1.0 /HPF (0.0-6.0) 02/04/21 16:51 Urine RBC (Auto) 1.0 /HPF (0.0-6.0) 02/04/21 16:51 U Epithel Cells (Auto) 3.0 /HPF (0-13.0) 02/04/21 16:51 Urine Mucus Few /HPF 02/04/21 16:51 Coronavirus (PCR) Negative (Negative) 02/07/21 Unknown Tejeda/IV: Voiding Method Toilet Active Medications - Current Medications Current Medications: Generic Name Dose Route Start Last Admin Trade Name Freq PRN Reason Stop Dose Admin Acetaminophen 650 mg 02/04/21 23:56 Acetaminophen 325 Mg Tab PO Q4H PRN Pain MILD(1-3)/Fever >100.5/FERNANDEZ Hydrocodone Bitart/Acetaminophen 1 each 02/05/21 08:00 02/11/21 08:53 Hydrocodone/Acetaminophen 7.5-325mg Tab PO 1 each TID TIM Administration Amlodipine Besylate 10 mg 02/10/21 10:00 02/11/21 09:03 Amlodipine 10 Mg Tab PO 10 mg QDAY TIM Administration Apixaban 5 mg 02/08/21 10:00 02/11/21 09:02 Apixaban 5 Mg Tab PO 5 mg Q12HR TIM Administration Protocol Aspirin 325 mg 02/05/21 10:00 02/11/21 09:04 Aspirin 325 Mg Tab PO 325 mg QDAY TIM Administration Atorvastatin Calcium 80 mg 02/05/21 22:00 02/10/21 21:05 Atorvastatin 40 Mg Tab PO 80 mg QHS TIM Administration Citalopram Hydrobromide 20 mg 02/07/21 10:00 02/11/21 09:04 Citalopram 20 Mg Tab PO 20 mg QDAY TIM Administration Docusate Sodium 100 mg 02/05/21 10:00 02/11/21 09:02 Docusate Sodium 100 Mg Cap PO 100 mg BID TIM Administration Gabapentin 300 mg 02/07/21 18:00 02/10/21 18:23 Gabapentin 300 Mg Cap PO 300 mg QPM TIM Administration Hydralazine HCl 25 mg 02/07/21 14:00 02/11/21 06:22 Hydralazine 25 Mg Tab PO 25 mg Q8HR TIM Administration Sodium Chloride 1,000 mls @ 75 mls/hr 02/09/21 10:00 Nacl 0.45% 1000 Ml IV DIRECT TIM Insulin Glargine 15 units 02/08/21 22:00 02/10/21 21:08 Insulin Glargine 100 Units/Ml SUB-Q 15 units QHS TIM Administration Insulin Human Lispro 0 unit 02/08/21 11:30 02/11/21 08:54 Insulin Lispro 100 Unit/Ml SUB-Q Not Given ACHS [facility] Protocol Isosorbide Mononitrate 60 mg 02/05/21 10:00 02/11/21 09:02 Isosorbide Mononitrate Er 60 Mg Tab PO 60 mg QDAY TIM Administration Levetiracetam 500 mg 02/05/21 01:00 02/11/21 09:02 Levetiracetam 500 Mg Tab PO 500 mg BID TIM Administration Metoclopramide HCl 5 mg 02/05/21 00:30 Metoclopramide 10 Mg/2 Ml Inj IV Q6H PRN Nausea And Vomiting Metoprolol Tartrate 25 mg 02/10/21 20:00 02/11/21 08:54 Metoprolol Tartrate 25 Mg Tab PO 25 mg TID TIM Administration Morphine Sulfate 2 mg 02/05/21 00:12 Morphine 2 Mg/1 Ml Inj IV Q4H PRN Pain, Moderate (4-6) Ondansetron HCl 4 mg 02/05/21 00:12 Ondansetron 4 Mg/2 Ml Inj IV Q8H PRN Nausea And Vomiting Oxycodone/Acetaminophen 1 tab 02/05/21 00:03 Oxycodone /Acetaminophen 5-325mg Tab PO Q6H PRN Pain, Moderate (4-6) Senna 8.6 mg 02/05/21 10:00 02/11/21 09:02 Sennosides 8.6 Mg Tab PO 8.6 mg Q12HR TIM Administration Sertraline HCl 100 mg 02/05/21 10:00 02/11/21 09:02 Sertraline 100 Mg Tab PO 100 mg QDAY TIM Administration Sodium Chloride 10 ml 02/05/21 10:00 02/11/21 09:02 Sodium Chloride 0.9% 10 Ml Flush Syringe IV 10 ml BID TIM Administration Sodium Chloride 10 ml 02/05/21 00:12 Sodium Chloride 0.9% 10 Ml Flush Syringe IV PRN PRN LINE FLUSH Sumatriptan Succinate 100 mg 02/05/21 01:10 Sumatriptan Succinate 50 Mg Tab PO DAILY PRN Migraine Headache Topiramate 50 mg 02/06/21 22:00 02/10/21 21:05 Topiramate Tab 25 Mg Tab PO 50 mg QHS ITM Administration
--- NOTE | 2021-02-11 10:02 | Progress Note ---
Assessment and Plan 1. Acute kidney injury: VAL superimposed on CKD. ?vasomotor VAL. Spilt function R 22.5% and L 77.5%. Renal US showed moderate R sided hydronephrosis (chronic). Bladder scan (02/09) 27 ml. Urine studies ordered. Monitor renal function. Creatinine level is improving. Avoid nephrotoxic agents. Meds dosage based on GFR. 2. FEN: Hyperchloremia, monitor. Monitor lytes and volume status. 3. Acute CVA: MRI with acute infarction in R hemisphere. Followed by Neurology. 4. Elevated cardiac enzymes: Echo,EF#45-50%. Followed by Cards. 5. New onset A.fib: Eliquis. 6. DM type 2: HbA1C 7. Monitor. 7. HTN: S/p permissive HTN. Monitor BP. Adjust meds as needed. 8. Recurrent headache: On Topamax 50 mg QHS. Followed by Neuro. 9. LANNY. 10. Hx of seizure: Keppra. 11. Normochromic anemia: Monitor. Subjective: Patient was seen and examined at the bedside. Examination: General appearance: well-developed, appears stated age, no distress, obese HEENT: LAURENCE, atraumatic Neck: trachea midline Respiratory: Clear to Auscultation Heart: S1S2, no murmur Abdomen: soft, obese, bowel sounds heard, NT Integumentary: no rash Neurologic: Alert, conversing, able to move extremities Ext: no edema noted Subjective Date of service: 02/11/21 Principal diagnosis: Acute CVA, New Onset AF Objective - Vital Signs Vital signs: Vital Signs - 12hr 02/10/21 02/10/21 02/11/21 23:00 23:46 03:29 Temperature 97.8 F 98.0 F Pulse Rate 96 H 107 H 98 H Respiratory 20 18 Rate Blood Pressure 146/67 146/76 O2 Sat by Pulse 98 97 Oximetry 02/11/21 02/11/21 02/11/21 06:22 08:05 08:14 Temperature 97.4 F L Pulse Rate 98 H 111 H Respiratory 20 Rate Blood Pressure 146/76 67/32 159/89 O2 Sat by Pulse 98 Oximetry 02/11/21 02/11/21 02/11/21 08:54 09:02 09:03 Temperature Pulse Rate 110 H 110 H 110 H Respiratory Rate Blood Pressure 159/89 159/90 159/90 O2 Sat by Pulse Oximetry - Lab 02/07/21 13:48 02/11/21 06:07 Most recent lab results Calcium 8.9 mg/dL (8.4-10.2) 02/11/21 06:07 Magnesium 2.20 mg/dL (1.7-2.3) 02/08/21 05:29 Medications & Allergies - Medications Allergies/Adverse Reactions: Allergies No Known Allergies Allergy (Verified 07/12/20 05:04) Home Medications: Home Medications Medication Instructions Recorded Confirmed Last Taken Type Gabapentin 300 mg PO TID 07/12/20 02/06/21 07/11/20 History Aspirin 325 mg PO QDAY 07/13/20 02/06/21 Unknown History Atorvastatin [Lipitor] 80 mg PO DAILY 07/13/20 02/06/21 Unknown History HYDROcodone/ACETAMINOPHEN 1 each PO TID 07/13/20 02/06/21 Unknown History [Hydrocodone-Acetamin 7.5-300] Sertraline [Zoloft] 100 mg PO QDAY 07/13/20 02/06/21 Unknown History levETIRAcetam [Keppra TAB] 500 mg PO BID 07/13/20 02/06/21 Unknown History ISOSORBIDE MONOnitrate [Imdur ER] 60 mg PO QDAY #30 tablet 07/19/20 02/06/21 Unknown Rx Metoprolol [Lopressor TAB] 25 mg PO BID #60 tablet 07/19/20 02/06/21 Unknown Rx hydrALAZINE [Apresoline TAB] 50 mg PO Q8HR #240 tablet 07/19/20 02/06/21 Unknown Rx Active Medications: Generic Name Dose Route Start Last Admin Trade Name Freq PRN Reason Stop Dose Admin Acetaminophen 650 mg 02/04/21 23:56 Acetaminophen 325 Mg Tab PO Q4H PRN Pain MILD(1-3)/Fever >100.5/FERNANDEZ Hydrocodone Bitart/Acetaminophen 1 each 02/05/21 08:00 02/11/21 08:53 Hydrocodone/Acetaminophen 7.5-325mg Tab PO 1 each TID TIM Administration Amlodipine Besylate 10 mg 02/10/21 10:00 02/11/21 09:03 Amlodipine 10 Mg Tab PO 10 mg QDAY TIM Administration Apixaban 5 mg 02/08/21 10:00 02/11/21 09:02 Apixaban 5 Mg Tab PO 5 mg Q12HR TIM Administration Protocol Aspirin 325 mg 02/05/21 10:00 02/11/21 09:04 Aspirin 325 Mg Tab PO 325 mg QDAY TIM Administration Atorvastatin Calcium 80 mg 02/05/21 22:00 02/10/21 21:05 Atorvastatin 40 Mg Tab PO 80 mg QHS TIM Administration Citalopram Hydrobromide 20 mg 02/07/21 10:00 02/11/21 09:04 Citalopram 20 Mg Tab PO 20 mg QDAY TIM Administration Docusate Sodium 100 mg 02/05/21 10:00 02/11/21 09:02 Docusate Sodium 100 Mg Cap PO 100 mg BID TIM Administration Gabapentin 300 mg 02/07/21 18:00 02/10/21 18:23 Gabapentin 300 Mg Cap PO 300 mg QPM TIM Administration Hydralazine HCl 25 mg 02/07/21 14:00 02/11/21 06:22 Hydralazine 25 Mg Tab PO 25 mg Q8HR TIM Administration Sodium Chloride 1,000 mls @ 75 mls/hr 02/09/21 10:00 Nacl 0.45% 1000 Ml IV DIRECT TIM Insulin Glargine 15 units 02/08/21 22:00 02/10/21 21:08 Insulin Glargine 100 Units/Ml SUB-Q 15 units QHS TIM Administration Insulin Human Lispro 0 unit 02/08/21 11:30 02/11/21 08:54 Insulin Lispro 100 Unit/Ml SUB-Q Not Given ACHS [facility] Protocol Isosorbide Mononitrate 60 mg 02/05/21 10:00 02/11/21 09:02 Isosorbide Mononitrate Er 60 Mg Tab PO 60 mg QDAY TIM Administration Levetiracetam 500 mg 02/05/21 01:00 02/11/21 09:02 Levetiracetam 500 Mg Tab PO 500 mg BID TIM Administration Metoclopramide HCl 5 mg 02/05/21 00:30 Metoclopramide 10 Mg/2 Ml Inj IV Q6H PRN Nausea And Vomiting Metoprolol Tartrate 25 mg 02/10/21 20:00 02/11/21 08:54 Metoprolol Tartrate 25 Mg Tab PO 25 mg TID TIM Administration Morphine Sulfate 2 mg 02/05/21 00:12 Morphine 2 Mg/1 Ml Inj IV Q4H PRN Pain, Moderate (4-6) Ondansetron HCl 4 mg 02/05/21 00:12 Ondansetron 4 Mg/2 Ml Inj IV Q8H PRN Nausea And Vomiting Oxycodone/Acetaminophen 1 tab 02/05/21 00:03 Oxycodone /Acetaminophen 5-325mg Tab PO Q6H PRN Pain, Moderate (4-6) Senna 8.6 mg 02/05/21 10:00 02/11/21 09:02 Sennosides 8.6 Mg Tab PO 8.6 mg Q12HR TIM Administration Sertraline HCl 100 mg 02/05/21 10:00 02/11/21 09:02 Sertraline 100 Mg Tab PO 100 mg QDAY TIM Administration Sodium Chloride 10 ml 02/05/21 10:00 02/11/21 09:02 Sodium Chloride 0.9% 10 Ml Flush Syringe IV 10 ml BID TIM Administration Sodium Chloride 10 ml 02/05/21 00:12 Sodium Chloride 0.9% 10 Ml Flush Syringe IV PRN PRN LINE FLUSH Sumatriptan Succinate 100 mg 02/05/21 01:10 Sumatriptan Succinate 50 Mg Tab PO DAILY PRN Migraine Headache Topiramate 50 mg 02/06/21 22:00 02/10/21 21:05 Topiramate Tab 25 Mg Tab PO 50 mg QHS TIM Administration
[2021-02-11] MEDS: GABAPENTIN 300 MG CAP PO SCH (17:04)
[2021-02-11] MEDS: TOPIRAMATE TAB 25 MG TAB PO SCH (21:53)
[2021-02-11] MEDS: INSULIN GLARGINE 100 UNITS/ML SUB-Q SCH (21:55)
[2021-02-12 06:18] LABS: Albumin 3.2 g/dL (3.9-5)
[2021-02-12] MEDS: hydrALAZINE 25 MG TAB PO SCH ×4 (06:42→22:10)
[2021-02-12] MEDS: INSULIN LISPRO 100 UNIT/ML SUB-Q SCH ×4 (07:53→22:39)
[2021-02-12] MEDS: HYDROcodone/ACETAMINOPHEN 7.5-325MG TAB PO SCH ×5 (08:42→22:04)
[2021-02-12] MEDS: METOPROLOL TARTRATE 25 MG TAB PO SCH ×4 (08:42→22:10)
--- NOTE | 2021-02-12 09:05 | Progress Note ---
Assessment and Plan 1. Acute kidney injury: VAL superimposed on CKD. ?vasomotor VAL. Split function R 22.5% and L 77.5%. Renal US showed moderate R sided hydronephrosis (chronic). Bladder scan (02/09) 27 ml. Urine studies ordered. Monitor renal function. Creatinine level fluctuates. Avoid nephrotoxic agents. Meds dosage based on GFR. 2. FEN: Hyperchloremia, monitor. Monitor lytes and volume status. 3. Acute CVA: MRI with acute infarction in R hemisphere. Followed by Neurology. 4. Elevated cardiac enzymes: Echo,EF#45-50%. Followed by Cards. 5. New onset A.fib: Eliquis. 6. DM type 2: HbA1C 7. Monitor. 7. HTN: S/p permissive HTN. Monitor BP. Adjust meds as needed. 8. Recurrent headache: On Topamax 50 mg QHS. Followed by Neuro. 9. LANNY. 10. Hx of seizure: Keppra. 11. Normochromic anemia: Monitor. Subjective: Patient was seen and examined at the bedside. Examination: General appearance: well-developed, appears stated age, no distress, obese HEENT: LAURENCE, atraumatic Neck: trachea midline Respiratory: Clear to Auscultation Heart: S1S2, no murmur Abdomen: soft, obese, bowel sounds heard, NT Integumentary: no rash Neurologic: Alert, conversing, able to move extremities Ext: no edema noted Subjective Date of service: 02/12/21 Principal diagnosis: Acute CVA, New Onset AF Objective - Vital Signs Vital signs: Vital Signs - 12hr 02/11/21 02/11/21 02/11/21 21:54 22:00 23:16 Temperature 99.1 F Pulse Rate 95 H 115 H Respiratory 17 16 Rate Blood Pressure 132/60 123/65 Blood Pressure [Right] O2 Sat by Pulse 98 96 Oximetry 02/12/21 02/12/21 02/12/21 04:03 06:42 07:55 Temperature 98.7 F Pulse Rate 83 83 Respiratory 16 17 Rate Blood Pressure 120/76 120/76 Blood Pressure [Right] O2 Sat by Pulse 95 98 Oximetry 02/12/21 08:40 Temperature 99.1 F Pulse Rate 85 Respiratory 18 Rate Blood Pressure Blood Pressure 101/54 [Right] O2 Sat by Pulse Oximetry - Lab 02/07/21 13:48 02/12/21 05:34 Most recent lab results Calcium 9.0 mg/dL (8.4-10.2) 02/12/21 05:34 Magnesium 2.20 mg/dL (1.7-2.3) 02/08/21 05:29 Medications & Allergies - Medications Allergies/Adverse Reactions: Allergies No Known Allergies Allergy (Verified 07/12/20 05:04) Home Medications: Home Medications Medication Instructions Recorded Confirmed Last Taken Type Gabapentin 300 mg PO TID 07/12/20 02/06/21 07/11/20 History Aspirin 325 mg PO QDAY 07/13/20 02/06/21 Unknown History Atorvastatin [Lipitor] 80 mg PO DAILY 07/13/20 02/06/21 Unknown History HYDROcodone/ACETAMINOPHEN 1 each PO TID 07/13/20 02/06/21 Unknown History [Hydrocodone-Acetamin 7.5-300] Sertraline [Zoloft] 100 mg PO QDAY 07/13/20 02/06/21 Unknown History levETIRAcetam [Keppra TAB] 500 mg PO BID 07/13/20 02/06/21 Unknown History ISOSORBIDE MONOnitrate [Imdur ER] 60 mg PO QDAY #30 tablet 07/19/20 02/06/21 Unknown Rx Metoprolol [Lopressor TAB] 25 mg PO BID #60 tablet 07/19/20 02/06/21 Unknown Rx hydrALAZINE [Apresoline TAB] 50 mg PO Q8HR #240 tablet 07/19/20 02/06/21 Unknown Rx Active Medications: Generic Name Dose Route Start Last Admin Trade Name Eltonq PRN Reason Stop Dose Admin Acetaminophen 650 mg 02/04/21 23:56 Acetaminophen 325 Mg Tab PO Q4H PRN Pain MILD(1-3)/Fever >100.5/FERNANDEZ Hydrocodone Bitart/Acetaminophen 1 each 02/05/21 08:00 02/12/21 08:42 Hydrocodone/Acetaminophen 7.5-325mg Tab PO 1 each TID TIM Administration Amlodipine Besylate 10 mg 02/10/21 10:00 02/11/21 09:03 Amlodipine 10 Mg Tab PO 10 mg QDAY TIM Administration Apixaban 5 mg 02/08/21 10:00 02/11/21 21:54 Apixaban 5 Mg Tab PO 5 mg Q12HR TIM Administration Protocol Aspirin 325 mg 02/05/21 10:00 02/11/21 09:04 Aspirin 325 Mg Tab PO 325 mg QDAY [facility] Administration Atorvastatin Calcium 80 mg 02/05/21 22:00 02/11/21 21:54 Atorvastatin 40 Mg Tab PO 80 mg QHS [facility] Administration Citalopram Hydrobromide 20 mg 02/07/21 10:00 02/11/21 09:04 Citalopram 20 Mg Tab PO 20 mg QDAY [facility] Administration Docusate Sodium 100 mg 02/05/21 10:00 02/11/21 21:54 Docusate Sodium 100 Mg Cap PO 100 mg BID TIM Administration Gabapentin 300 mg 02/07/21 18:00 02/11/21 17:04 Gabapentin 300 Mg Cap PO 300 mg QPM TIM Administration Hydralazine HCl 25 mg 02/07/21 14:00 02/12/21 06:42 Hydralazine 25 Mg Tab PO 25 mg Q8HR [facility] Administration Sodium Chloride 1,000 mls @ 75 mls/hr 02/09/21 10:00 Nacl 0.45% 1000 Ml IV DIRECT [facility] Insulin Glargine 15 units 02/08/21 22:00 02/11/21 21:55 Insulin Glargine 100 Units/Ml SUB-Q Not Given QHS [facility] Insulin Human Lispro 0 unit 02/08/21 11:30 02/12/21 07:53 Insulin Lispro 100 Unit/Ml SUB-Q Not Given [facility] Protocol Isosorbide Mononitrate 60 mg 02/05/21 10:00 02/11/21 09:02 Isosorbide Mononitrate Er 60 Mg Tab PO 60 mg QDAY [facility] Administration Levetiracetam 500 mg 02/05/21 01:00 02/11/21 21:54 Levetiracetam 500 Mg Tab PO 500 mg BID [facility] Administration Metoclopramide HCl 5 mg 02/05/21 00:30 Metoclopramide 10 Mg/2 Ml Inj IV Q6H PRN Nausea And Vomiting Metoprolol Tartrate 25 mg 02/10/21 20:00 02/12/21 08:42 Metoprolol Tartrate 25 Mg Tab PO 25 mg TID [facility] Administration Morphine Sulfate 2 mg 02/05/21 00:12 Morphine 2 Mg/1 Ml Inj IV Q4H PRN Pain, Moderate (4-6) Ondansetron HCl 4 mg 02/05/21 00:12 Ondansetron 4 Mg/2 Ml Inj IV Q8H PRN Nausea And Vomiting Oxycodone/Acetaminophen 1 tab 02/05/21 00:03 Oxycodone /Acetaminophen 5-325mg Tab PO Q6H PRN Pain, Moderate (4-6) Senna 8.6 mg 02/05/21 10:00 02/11/21 21:54 Sennosides 8.6 Mg Tab PO 8.6 mg Q12HR TIM Administration Sertraline HCl 100 mg 02/05/21 10:00 02/11/21 09:02 Sertraline 100 Mg Tab PO 100 mg QDAY TIM Administration Sodium Chloride 10 ml 02/05/21 10:00 02/11/21 21:55 Sodium Chloride 0.9% 10 Ml Flush Syringe IV 10 ml BID TIM Administration Sodium Chloride 10 ml 02/05/21 00:12 Sodium Chloride 0.9% 10 Ml Flush Syringe IV PRN PRN LINE FLUSH Sumatriptan Succinate 100 mg 02/05/21 01:10 Sumatriptan Succinate 50 Mg Tab PO DAILY PRN Migraine Headache Topiramate 50 mg 02/06/21 22:00 02/11/21 21:53 Topiramate Tab 25 Mg Tab PO 50 mg QHS TIM Administration
[2021-02-12] MEDS: DOCUSATE SODIUM 100 MG CAP PO SCH ×2 (09:08→22:10)
[2021-02-12] MEDS: SENNOSIDES 8.6 MG TAB PO SCH ×2 (09:08→22:10)
[2021-02-12] MEDS: APIXABAN 5 MG TAB PO SCH ×4 (10:15→22:03)
[2021-02-12] MEDS: ASPIRIN 325 MG TAB PO SCH ×3 (10:16→11:24)
[2021-02-12] MEDS: levETIRAcetam 500 MG TAB PO SCH ×4 (10:16→22:03)
[2021-02-12] MEDS: CITALOPRAM 20 MG TAB PO SCH ×3 (10:16→11:24)
[2021-02-12] MEDS: SERTRALINE 100 MG TAB PO SCH (10:16)
[2021-02-12] MEDS: oxyCODONE /ACETAMINOPHEN 5-325MG TAB PO PRN (11:03)
--- NOTE | 2021-02-12 11:39 | Progress Note ---
Assessment and Plan Assessment and plan: #Acute CVA Continue aspirin 325 mg daily Statins Neurology follow up Continue eliquis for atrial fibrillation PT recommends rehab. Awaiting placement #VAL Vasomotor nephropathy Creatinine 2.0 Continue to avoid nephrotoxic medications. Nephrology recommendations appreciated #Atrial fibrillation Continue metoprolol Anticoagulation with eliquis Cardiology recs appreciated. Willl follow up with cardiology in 1-2 weeks after discharge #Diabetes mellitus Lantus and sliding scale #History of Seizure disorder Keppra EEG shows no seizure activity Neurology recommendations appreciated # HTN Monitor BP #Possible depression Has refused to take oral medications as per RN Psychiatry evaluation DVT ppx -On eliquis Discussed with case management about discharge planning Case management working on placement History Interval history: 65-year-old female. The patient has a complex past medical history, including obesity, cholelithiasis, hydronephrosis, status post stent with stent removal, ejection fraction 55 to 60%, obesity, hypertension, seizure, stroke x2, with reported residual right-sided weakness, myocardial infarction, obstructive sleep apnea with home CPAP, and diabetes. She is sent to the emergency room by an outpatient neurology physician, a Dr. Néstor Olivera Apparently, the patient has been having complaints of headaches and feeling like she has been having an unsteady gait, since January 2020. An outpatient MRI was obtained today, through [facility] imaging services, and was reportedly found to have a stroke or subacute stroke of unknown duration or chronicity, but she was referred to the emergency room for evaluation. The patient complains of mild headache. She has chronic blurry vision. She denies chest pain. She has chronic shortness of breath. She denies hematemesis and bright red blood per rectum. She denies urinary symptoms. She denies cough. She complains of general weakness, but denies new/different weakness. 02/05/2021 Neurology consult appreciated MRI consistent with right CVA with left-sided weakness 02/06/2021 Patient is too weak and altered for PT and OT Left-sided weakness persists 02/07/2021 Patient with altered sensorium Left-sided weakness persists Patient had EEG which did not show any seizure activity 02/08. Started on anticoagulation for atrial fibrillation. Patient will need placement. Cardiology and neurology following 02/09. She has left-sided weakness. Continue current medications. Awaiting placement 02/10. No complaints. Needs placement. Vitals stable. Cardiology follow up in the office in 1-2 weeks advised 02/11. Has no complaints. Still has left-sided weakness. Waiting for placement. Remains on metoprolol for heart rate control. On Eliquis. Awaiting placement. Had P2P with insurance rep today 02/12. Informed by RN that patient has not been taking oral medications. I asked patient why she is not taking medications and when she says that she just does not want to take medications. We will consult psychiatry to see. She is hemodynamically stable however. Still awaiting placement Hospitalist Physical - Physical exam Narrative exam: VITAL SIGNS: Reviewed. GENERAL: Awake HEAD: No signs of head trauma. EYES: Pupils are equal. Extraocular motions intact. MOUTH: Oropharynx is normal. NECK: No adenopathy, no JVD. CHEST: Chest with diminished breath sounds bilaterally. No wheezes, rales, or rhonchi. CARDIAC: normal S1 and S2, without murmurs, gallops, or rubs. ABDOMEN: Soft, non tender and non distended. No rebound or guarding, and no masses palpated. Bowel Sounds normal. MUSCULOSKELETAL: No edema NEUROLOGIC EXAM: Alert and oriented x3. Has left-sided weakness SKIN: No obvious lesions - Constitutional Vitals: Temp Pulse Resp BP Pulse Ox 99.1 F 85 18 101/54 98 02/12/21 08:40 02/12/21 08:40 02/12/21 08:40 02/12/21 08:40 02/12/21 07:55 HEART Score - HEART Score Troponin: Troponin T 0.033 ng/mL (0.00-0.029) H 02/04/21 20:09 Results - Labs CBC & Chem 7: 02/07/21 13:48 02/12/21 05:34 Labs: Laboratory Last Values WBC 6.3 K/mm3 (4.5-11.0) 02/07/21 13:48 RBC 3.81 M/mm3 (3.65-5.03) 02/07/21 13:48 Hgb 9.8 gm/dl (10.1-14.3) L 02/07/21 13:48 Hct 30.4 % (30.3-42.9) D 02/07/21 13:48 MCV 80 fl (79-97) 02/07/21 13:48 MCH 26 pg (28-32) L 02/07/21 13:48 MCHC 32 % (30-34) 02/07/21 13:48 RDW 16.8 % (13.2-15.2) H 02/07/21 13:48 Plt Count 214 K/mm3 (140-440) 02/07/21 13:48 Lymph % (Auto) 21.7 % (13.4-35.0) 02/04/21 15:13 [place] % (Auto) 9.4 % (0.0-7.3) H 02/04/21 15:13 Eos % (Auto) 8.3 % (0.0-4.3) H 02/04/21 15:13 Baso % (Auto) 1.0 % (0.0-1.8) 02/04/21 15:13 Lymph # (Auto) 1.2 K/mm3 (1.2-5.4) 02/04/21 15:13 [place] # (Auto) 0.5 K/mm3 (0.0-0.8) 02/04/21 15:13 Eos # (Auto) 0.5 K/mm3 (0.0-0.4) H 02/04/21 15:13 Baso # (Auto) 0.1 K/mm3 (0.0-0.1) 02/04/21 15:13 Seg Neutrophils % 59.6 % (40.0-70.0) 02/04/21 15:13 Seg Neutrophils # 3.3 K/mm3 (1.8-7.7) 02/04/21 15:13 PT 14.0 Sec. (12.2-14.9) 02/07/21 13:48 INR 1.09 (0.87-1.13) 02/07/21 13:48 APTT 30.2 Sec. (24.2-36.6) 02/07/21 13:48 Thrombin Time 17.1 Sec. (15.1-19.6) 02/04/21 15:13 Sodium 142 mmol/L (137-145) 02/12/21 05:34 Potassium 3.7 mmol/L (3.6-5.0) 02/12/21 05:34 Chloride 109.4 mmol/L (98-107) H 02/12/21 05:34 Carbon Dioxide 24 mmol/L (22-30) 02/12/21 05:34 Anion Gap 12 mmol/L 02/12/21 05:34 BUN 42 mg/dL (7-17) H 02/12/21 05:34 Creatinine 2.0 mg/dL (0.6-1.2) H 02/12/21 05:34 Estimated GFR 30 ml/min 02/12/21 05:34 BUN/Creatinine Ratio 21 % 02/12/21 05:34 Glucose 145 mg/dL (65-100) H 02/12/21 05:34 POC Glucose 94 mg/dL (70-105) 02/12/21 11:14 Hemoglobin A1c 7.0 % (4-6) H 02/06/21 15:13 Calcium 9.0 mg/dL (8.4-10.2) 02/12/21 05:34 Magnesium 2.20 mg/dL (1.7-2.3) 02/08/21 05:29 Total Bilirubin 0.20 mg/dL (0.1-1.2) 02/12/21 05:34 AST 17 units/L (5-40) 02/12/21 05:34 ALT 17 units/L (7-56) 02/12/21 05:34 Alkaline Phosphatase 76 units/L (35-129) 02/12/21 05:34 Total Creatine Kinase 240 units/L (30-135) H 02/04/21 15:25 CK-MB (CK-2) 3.4 ng/mL (0.0-4.0) 02/04/21 15:13 CK-MB (CK-2) Rel Index 1.4 (0-4) 02/04/21 15:13 Troponin T 0.033 ng/mL (0.00-0.029) H 02/04/21 20:09 Total Protein 5.9 g/dL (6.3-8.2) L 02/12/21 05:34 Albumin 3.2 g/dL (3.9-5) L 02/12/21 05:34 Albumin/Globulin Ratio 1.2 % 02/12/21 05:34 Triglycerides 121 mg/dL (2-149) 02/04/21 15:13 Cholesterol 117 mg/dL (50-199) 02/04/21 15:13 LDL Cholesterol Direct 67 mg/dL (50-130) 02/04/21 15:13 HDL Cholesterol 32 mg/dL (40-59) L 02/04/21 15:13 Cholesterol/HDL Ratio 3.65 % 02/04/21 15:13 TSH 1.140 mlU/mL (0.270-4.200) 02/04/21 15:25 Urine Color Yellow (Yellow) 02/04/21 16:51 Urine Turbidity Clear (Clear) 02/04/21 16:51 Urine pH 5.0 (5.0-7.0) 02/04/21 16:51 Ur Specific [place] 1.019 (1.003-1.030) 02/04/21 16:51 Urine Protein >500 mg/dL (Negative) 02/04/21 16:51 Urine Glucose (UA) Neg mg/dL (Negative) 02/04/21 16:51 Urine Ketones Tr mg/dL (Negative) 02/04/21 16:51 Urine Blood Neg (Negative) 02/04/21 16:51 Urine Nitrite Neg (Negative) 02/04/21 16:51 Ur Reducing Substances Not Reportable 02/04/21 16:51 Urine Bilirubin Neg (Negative) 02/04/21 16:51 Urine Ictotest Not Reportable 02/04/21 16:51 Urine Urobilinogen < 2.0 mg/dL (<2.0) 02/04/21 16:51 Ur Leukocyte Esterase Neg (Negative) 02/04/21 16:51 Urine WBC (Auto) 1.0 /HPF (0.0-6.0) 02/04/21 16:51 Urine RBC (Auto) 1.0 /HPF (0.0-6.0) 02/04/21 16:51 U Epithel Cells (Auto) 3.0 /HPF (0-13.0) 02/04/21 16:51 Urine Mucus Few /HPF 02/04/21 16:51 Coronavirus (PCR) Negative (Negative) 02/07/21 Unknown [place]/IV: Voiding Method External Female Catheter Active Medications - Current Medications Current Medications: Generic Name Dose Route Start Last Admin Trade Name Freq PRN Reason Stop Dose Admin Acetaminophen 650 mg 02/04/21 23:56 Acetaminophen 325 Mg Tab PO Q4H PRN Pain MILD(1-3)/Fever >100.5/FERNANDEZ Hydrocodone Bitart/Acetaminophen 1 each 02/05/21 08:00 02/12/21 11:01 Hydrocodone/Acetaminophen 7.5-325mg Tab PO Not Given TID [facility] Apixaban 5 mg 02/08/21 10:00 02/12/21 11:23 Apixaban 5 Mg Tab PO 5 mg Q12HR [facility] Administration Protocol Aspirin 325 mg 02/05/21 10:00 02/12/21 11:24 Aspirin 325 Mg Tab PO 325 mg QDAY [facility] Administration Atorvastatin Calcium 80 mg 02/05/21 22:00 02/11/21 21:54 Atorvastatin 40 Mg Tab PO 80 mg QHS [facility] Administration Citalopram Hydrobromide 20 mg 02/07/21 10:00 02/12/21 11:24 Citalopram 20 Mg Tab PO 20 mg QDAY [facility] Administration Docusate Sodium 100 mg 02/05/21 10:00 02/12/21 09:08 Docusate Sodium 100 Mg Cap PO Not Given BID TIM Gabapentin 300 mg 02/07/21 18:00 02/11/21 17:04 Gabapentin 300 Mg Cap PO 300 mg QPM TIM Administration Hydralazine HCl 25 mg 02/07/21 14:00 02/12/21 06:42 Hydralazine 25 Mg Tab PO 25 mg Q8HR [facility] Administration Sodium Chloride 1,000 mls @ 75 mls/hr 02/09/21 10:00 Nacl 0.45% 1000 Ml IV DIRECT [facility] Insulin Glargine 15 units 02/08/21 22:00 02/11/21 21:55 Insulin Glargine 100 Units/Ml SUB-Q Not Given QHS [facility] Insulin Human Lispro 0 unit 02/08/21 11:30 02/12/21 07:53 Insulin Lispro 100 Unit/Ml SUB-Q Not Given ACHS [facility] Protocol Isosorbide Mononitrate 60 mg 02/05/21 10:00 02/12/21 11:24 Isosorbide Mononitrate Er 60 Mg Tab PO 60 mg QDAY [facility] Administration Levetiracetam 500 mg 02/05/21 01:00 02/12/21 11:24 Levetiracetam 500 Mg Tab PO 500 mg BID TIM Administration Metoclopramide HCl 5 mg 02/05/21 00:30 Metoclopramide 10 Mg/2 Ml Inj IV Q6H PRN Nausea And Vomiting Metoprolol Tartrate 25 mg 02/10/21 20:00 02/12/21 08:42 Metoprolol Tartrate 25 Mg Tab PO 25 mg TID TIM Administration Morphine Sulfate 2 mg 02/05/21 00:12 Morphine 2 Mg/1 Ml Inj IV Q4H PRN Pain, Moderate (4-6) Ondansetron HCl 4 mg 02/05/21 00:12 Ondansetron 4 Mg/2 Ml Inj IV Q8H PRN Nausea And Vomiting Oxycodone/Acetaminophen 1 tab 02/05/21 00:03 02/12/21 11:03 Oxycodone /Acetaminophen 5-325mg Tab PO 1 tab Q6H PRN Administration Pain, Moderate (4-6) Senna 8.6 mg 02/05/21 10:00 02/12/21 09:08 Sennosides 8.6 Mg Tab PO Not Given Q12HR TIM Sertraline HCl 100 mg 02/05/21 10:00 02/12/21 10:16 Sertraline 100 Mg Tab PO 100 mg QDAY TIM Administration Sodium Chloride 10 ml 02/05/21 10:00 02/12/21 10:24 Sodium Chloride 0.9% 10 Ml Flush Syringe IV Not Given BID TIM Sodium Chloride 10 ml 02/05/21 00:12 Sodium Chloride 0.9% 10 Ml Flush Syringe IV PRN PRN LINE FLUSH Sumatriptan Succinate 100 mg 02/05/21 01:10 Sumatriptan Succinate 50 Mg Tab PO DAILY PRN Migraine Headache Topiramate 50 mg 02/06/21 22:00 02/11/21 21:53 Topiramate Tab 25 Mg Tab PO 50 mg QHS TIM Administration Nutrition/Malnutrition Assess - Dietary Evaluation Nutrition/Malnutrition Findings: Nutrition Notes Start: 02/11/21 11:33 Freq: Status: Active Protocol: Document 02/11/21 11:33 MOE (Rec: 02/11/21 11:36 MOE [email or web address]) Nutrition Notes Need for Assessment generated from: LOS Initial or Follow up Brief Note Current Diagnosis Acute Kidney Injury,Diabetes, Hypertension Other Pertinent Diagnosis Acute CVA Current Diet Cardiac/Consistent CHO Height 5 ft 5 in Weight 115.8 kg [place] Body Weight (kg) 56.81 BMI 42.5 Weight Status Morbidly Obese Subjective/Other Information Pt screened for LOS. She has consumed 81% of meals; awaiting placement for rehab. Percent of energy/protein needs met: 99% energy 81% pro Burn Absent Trauma Absent Current % PO Good (75-100%) Minimum of two criteria No Is patient on ventilator? No Is Patient Ambulatory and/or Out of Bed No REE-([facility]-confined to bed) 2060.312 Kcal/Kg value to use for calculation 14 Approximate Energy Requirements Using 1621 kcal/Kg Calculation Used for Recommendations Kcal/kg Additional Notes Pro needs 1-1.2g/kg adjBW: 86- 104g/day Fluid needs 1ml/kcal Nutrition Intervention Revisit per MD consult or patient Sign Off request:
[2021-02-12] MEDS: GABAPENTIN 300 MG CAP PO SCH (17:11)
[2021-02-12] MEDS: TOPIRAMATE TAB 25 MG TAB PO SCH (22:03)
[2021-02-12] MEDS: INSULIN GLARGINE 100 UNITS/ML SUB-Q SCH (22:39)
[2021-02-13] MEDS: hydrALAZINE 25 MG TAB PO SCH (05:12)
[2021-02-13] MEDS: INSULIN LISPRO 100 UNIT/ML SUB-Q SCH ×4 (09:07→21:25)
[2021-02-13] MEDS: DOCUSATE SODIUM 100 MG CAP PO SCH ×2 (09:26→21:33)
[2021-02-13] MEDS: SENNOSIDES 8.6 MG TAB PO SCH ×2 (09:26→21:33)
--- NOTE | 2021-02-13 09:43 | Consultation ---
History of Present Illness - Reason for Consult Consult date: 02/13/21 Reason for consult: MHE Requesting physician: TARA SAENZ - Chief Complaint Chief complaint: Acute right CVA - History of Present Psychiatric Illness Per ED Provider:This is a 65-year-old female. The patient has a complex past medical history, including obesity, cholelithiasis, hydronephrosis, status post stent with stent removal, ejection fraction 55 to 60%, obesity, hypertension, seizure, stroke x2, with reported residual right-sided weakness, myocardial infarction, obstructive sleep apnea with home CPAP, and diabetes. She is sent to the emergency room by an outpatient neurology physician, shirley Olivera Apparently, the patient has been having complaints of headaches and feeling like she has been having an unsteady gait, since January 2020. An outpatient MRI was obtained today, through [facility] imaging services, and was reportedly found to have a stroke or subacute stroke of unknown duration or chronicity, but she was referred to the emergency room for evaluation. PSYCH HPI Patient is a 65 year old , AA F who currenlty resides with family admi tted to facility for acute stroke concerns with psych consult requested due to concerns for depression because patient has been refusing medications. Patient states she knows she is in the hospital but doesnt know which hospital she is in, and why she is in the hospital. Patient states she is not depressed or suicidal, knows its year 2020 but does not know the month. Patient responds to questions with bright positive affect, does not look withdrawn. I discussed findings with Hospitalist, who then interviewed pt and provided similar responses, she was able to follow commands, like raise legs and hands but states "I dont know to questions such as where she is, or what is doctors name. PAST PSYCHIATRIC HISTORY Diagnoses: none reported Suicide attempts or Self-harm behavior: none reported Prior psychiatric hospitalizations: Substance Abuse history: Previous psychiatric medications tried: Outpatient treatment: PAST MEDICAL HISTORY: Family Psychiatric History: None reported or documented SOCIAL HISTORY Marital Status: Living Arrangements: with family Employment Status: SSI Access to guns/weapons: none reported Education: n/a History of Abuse: none Legal History: none REVIEW OF SYSTEMS Constitutional: Negative for weight loss ENT: Negative for stridor Respiratory: Negative for cough or hemoptysis All other systems reviewed and are negative MENTAL STATUS EXAMINATION General Appearance and Behavior: Age appropriate, good hygiene, wearing leandro ropriate clothes, good eye contact, cooperative polite with questioning. Cooperation: Participating/engaged Psychomotor Behavior: unremarkable and within normal limits Mood: Good Affect and affective range: congruent with mood Thought Process: Fluent/Logical, Thought Content: Within reality, Speech: Normal volume, Regular rate and rhythm, Intellectual Functioning: Fair Suicidal Ideation: Denies SI Homicidal Ideation: Denies HI Impulse Control: Unimpaired Insight and Judgment: Normal insight and judgment, Memory: short term memory impaired Attention: Normal Orientation: Alert, oriented to place only. 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 MEDICATIONS: Risks, benefits and alternatives of medications discussed with the patient, questions answered and consent obtained from patient. PSYCHOTHERAPY: Supportive psychotherapy provided MEDICAL: Per primary team DELIRIUM PRECAUTIONS: Please re-orient patient frequently, keep lights on during the day, and minimize benzodiazepines and opiates as these medications could worsen patient's confusion. 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 Case discussed with Dr. Mckenzie who agrees with current disposition LEGAL STATUS: Voluntary FOLLOW-UP: Will sign off Thank you for the consult. Please contact with any questions and/or concerns. Medications and Allergies Allergies Allergy/AdvReac Type Severity Reaction Status Date / Time No Known Allergies Allergy Verified 07/12/20 05:04 Home Medications Medication Instructions Recorded Confirmed Last Taken Type Gabapentin 300 mg PO TID 07/12/20 02/06/21 07/11/20 History Aspirin 325 mg PO QDAY 07/13/20 02/06/21 Unknown History Atorvastatin [Lipitor] 80 mg PO DAILY 07/13/20 02/06/21 Unknown History HYDROcodone/ACETAMINOPHEN 1 each PO TID 07/13/20 02/06/21 Unknown History [Hydrocodone-Acetamin 7.5-300] Sertraline [Zoloft] 100 mg PO QDAY 07/13/20 02/06/21 Unknown History levETIRAcetam [Keppra TAB] 500 mg PO BID 07/13/20 02/06/21 Unknown History ISOSORBIDE MONOnitrate [Imdur ER] 60 mg PO QDAY #30 tablet 07/19/20 02/06/21 Unknown Rx Metoprolol [Lopressor TAB] 25 mg PO BID #60 tablet 07/19/20 02/06/21 Unknown Rx hydrALAZINE [Apresoline TAB] 50 mg PO Q8HR #240 tablet 07/19/20 02/06/21 Unknown Rx Active Meds: Active Medications Acetaminophen (Acetaminophen 325 Mg Tab) 650 mg PO Q4H PRN PRN Reason: Pain MILD(1-3)/Fever >100.5/FERNANDEZ Hydrocodone Bitart/Acetaminophen (Hydrocodone/Acetaminophen 7.5-325mg Tab) 1 each PO TID [facility] Last Admin: 02/12/21 22:04 Dose: 1 each Documented by: Apixaban (Apixaban 5 Mg Tab) 5 mg PO Q12HR [facility]; Protocol Last Admin: 02/12/21 22:03 Dose: 5 mg Documented by: Aspirin (Aspirin 325 Mg Tab) 325 mg PO QDAY [facility] Last Admin: 02/12/21 11:24 Dose: 325 mg Documented by: Atorvastatin Calcium (Atorvastatin 40 Mg Tab) 80 mg PO QHS [facility] Last Admin: 02/12/21 22:03 Dose: 80 mg Documented by: Citalopram Hydrobromide (Citalopram 20 Mg Tab) 20 mg PO QDAY [facility] Last Admin: 02/12/21 11:24 Dose: 20 mg Documented by: Docusate Sodium (Docusate Sodium 100 Mg Cap) 100 mg PO BID [facility] Last Admin: 02/12/21 22:10 Dose: Not Given Documented by: Gabapentin (Gabapentin 300 Mg Cap) 300 mg PO QPM [facility] Last Admin: 02/12/21 17:11 Dose: Not Given Documented by: Hydralazine HCl (Hydralazine 25 Mg Tab) 25 mg PO Q8HR [facility] Last Admin: 02/13/21 05:12 Dose: Not Given Documented by: Sodium Chloride (Nacl 0.45% 1000 Ml) 1,000 mls @ 75 mls/hr IV DIRECT [facility] Insulin Glargine (Insulin Glargine 100 Units/Ml) 15 units SUB-Q QHS [facility] Last Admin: 02/12/21 22:39 Dose: Not Given Documented by: Insulin Human Lispro (Insulin Lispro 100 Unit/Ml) 0 unit SUB-Q ACHS [facility]; Protocol Last Admin: 02/13/21 09:07 Dose: Not Given Documented by: Isosorbide Mononitrate (Isosorbide Mononitrate Er 60 Mg Tab) 60 mg PO QDAY [facility] Last Admin: 02/12/21 11:24 Dose: 60 mg Documented by: Levetiracetam (Levetiracetam 500 Mg Tab) 500 mg PO BID [facility] Last Admin: 02/12/21 22:03 Dose: 500 mg Documented by: Metoclopramide HCl (Metoclopramide 10 Mg/2 Ml Inj) 5 mg IV Q6H PRN PRN Reason: Nausea And Vomiting Metoprolol Tartrate (Metoprolol Tartrate 25 Mg Tab) 25 mg PO TID [facility] Last Admin: 02/12/21 22:10 Dose: Not Given Documented by: Morphine Sulfate (Morphine 2 Mg/1 Ml Inj) 2 mg IV Q4H PRN PRN Reason: Pain, Moderate (4-6) Ondansetron HCl (Ondansetron 4 Mg/2 Ml Inj) 4 mg IV Q8H PRN PRN Reason: Nausea And Vomiting Oxycodone/Acetaminophen (Oxycodone /Acetaminophen 5-325mg Tab) 1 tab PO Q6H PRN PRN Reason: Pain, Moderate (4-6) Last Admin: 02/12/21 11:03 Dose: 1 tab Documented by: Senna (Sennosides 8.6 Mg Tab) 8.6 mg PO Q12HR [facility] Last Admin: 02/12/21 22:10 Dose: Not Given Documented by: Sertraline HCl (Sertraline 100 Mg Tab) 100 mg PO QDAY [facility] Last Admin: 02/12/21 10:16 Dose: 100 mg Documented by: Sodium Chloride (Sodium Chloride 0.9% 10 Ml Flush Syringe) 10 ml IV BID [facility] Last Admin: 02/12/21 22:04 Dose: Not Given Documented by: Sodium Chloride (Sodium Chloride 0.9% 10 Ml Flush Syringe) 10 ml IV PRN PRN PRN Reason: LINE FLUSH Sumatriptan Succinate (Sumatriptan Succinate 50 Mg Tab) 100 mg PO DAILY PRN PRN Reason: Migraine Headache Topiramate (Topiramate Tab 25 Mg Tab) 50 mg PO QHS [facility] Last Admin: 02/12/21 22:03 Dose: 50 mg Documented by: Mental Status Exam - Vital signs Last Vital Signs Temp 98.9 F 02/13/21 04:50 Pulse 115 H 02/13/21 07:41 Resp 17 02/13/21 07:56 BP 141/82 02/13/21 07:41 Pulse Ox 98 02/13/21 07:56 Results Result Diagrams: 02/07/21 13:48 02/12/21 05:34 Abnormal lab results 02/12/21 Range/Units 16:21 POC Glucose 112 H (70-105) mg/dL All other labs normal. 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
[2021-02-13] MEDS: HYDROcodone/ACETAMINOPHEN 7.5-325MG TAB PO SCH ×3 (10:13→21:24)
[2021-02-13] MEDS ORDERED: HEPARIN 10,000 UNITS/10 ML VIAL IV PRN (11:19)
--- NOTE | 2021-02-13 11:20 | Progress Note ---
Assessment and Plan Assessment and plan: #Acute CVA Continue aspirin 325 mg daily Statins Neurology follow up Anticoagulation PT recommends rehab. Awaiting placement Repeat CT head ordered to evaluate any changes #VAL Vasomotor nephropathy Creatinine 2.0 Continue to avoid nephrotoxic medications. Nephrology recommendations appreciated #Atrial fibrillation Refused PM metoprolol. Now has afib w rvr - Ordered one dose cardizem. Cardiology to see Anticoagulation with heparin #Diabetes mellitus Lantus and sliding scale #History of Seizure disorder Keppra EEG shows no seizure activity Neurology recommendations appreciated # HTN Monitor BP #Possible depression Has refused to take oral medications as per RN Psychiatry evaluation DVT ppx -Heparin Discussed with case management about discharge planning Case management working on placement History Interval history: 65-year-old female. The patient has a complex past medical history, including obesity, cholelithiasis, hydronephrosis, status post stent with stent removal, ejection fraction 55 to 60%, obesity, hypertension, seizure, stroke x2, with reported residual right-sided weakness, myocardial infarction, obstructive sleep apnea with home CPAP, and diabetes. She is sent to the emergency room by an outpatient neurology physician, a Dr. Néstor Olivera Apparently, the patient has been having complaints of headaches and feeling like she has been having an unsteady gait, since January 2020. An outpatient MRI was obtained today, through [facility] imaging services, and was reportedly found to have a stroke or subacute stroke of unknown duration or chronicity, but she was referred to the emergency room for evaluation. The patient complains of mild headache. She has chronic blurry vision. She denies chest pain. She has chronic shortness of breath. She denies hematemesis and bright red blood per rectum. She denies urinary symptoms. She denies cough. She complains of general weakness, but denies new/different weakness. 02/05/2021 Neurology consult appreciated MRI consistent with right CVA with left-sided weakness 02/06/2021 Patient is too weak and altered for PT and OT Left-sided weakness persists 02/07/2021 Patient with altered sensorium Left-sided weakness persists Patient had EEG which did not show any seizure activity 02/08. Started on anticoagulation for atrial fibrillation. Patient will need placement. Cardiology and neurology following 02/09. She has left-sided weakness. Continue current medications. Awaiting placement 02/10. No complaints. Needs placement. Vitals stable. Cardiology follow up in the office in 1-2 weeks advised 02/11. Has no complaints. Still has left-sided weakness. Waiting for placement. Remains on metoprolol for heart rate control. On Eliquis. Awaiting placement. Had P2P with insurance rep today 02/12. Informed by RN that patient has not been taking oral medications. I asked patient why she is not taking medications and when she says that she just does not want to take medications. We will consult psychiatry to see. She is hemodynamically stable however. Still awaiting placement 02/13. Refused p.m. metoprolol. Heart rate up to 160s now. Ordered Cardizem 20 mg. Cardiology to reevaluate. Patient counseled to take medications as prescribed. Psychiatry evaluation noted Hospitalist Physical - Physical exam Narrative exam: VITAL SIGNS: Reviewed. GENERAL: Awake HEAD: No signs of head trauma. EYES: Pupils are equal. Extraocular motions intact. MOUTH: Oropharynx is normal. NECK: No adenopathy, no JVD. CHEST: Chest with diminished breath sounds bilaterally. No wheezes, rales, or rhonchi. CARDIAC: normal S1 and S2, without murmurs, gallops, or rubs. ABDOMEN: Soft, non tender and non distended. No rebound or guarding, and no masses palpated. Bowel Sounds normal. MUSCULOSKELETAL: No edema NEUROLOGIC EXAM: Alert and oriented x3. Has left-sided weakness SKIN: No obvious lesions - Constitutional Vitals: Temp Pulse Resp BP Pulse Ox 98.2 F 109 H 18 141/82 98 02/13/21 08:50 02/13/21 08:50 02/13/21 08:50 02/13/21 08:50 02/13/21 07:56 HEART Score - HEART Score Troponin: Troponin T 0.033 ng/mL (0.00-0.029) H 02/04/21 20:09 Results - Labs CBC & Chem 7: 02/07/21 13:48 02/12/21 05:34 Labs: Laboratory Last Values WBC 6.3 K/mm3 (4.5-11.0) 02/07/21 13:48 RBC 3.81 M/mm3 (3.65-5.03) 02/07/21 13:48 Hgb 9.8 gm/dl (10.1-14.3) L 02/07/21 13:48 Hct 30.4 % (30.3-42.9) D 02/07/21 13:48 MCV 80 fl (79-97) 02/07/21 13:48 MCH 26 pg (28-32) L 02/07/21 13:48 MCHC 32 % (30-34) 02/07/21 13:48 RDW 16.8 % (13.2-15.2) H 02/07/21 13:48 Plt Count 214 K/mm3 (140-440) 02/07/21 13:48 Lymph % (Auto) 21.7 % (13.4-35.0) 02/04/21 15:13 [place] % (Auto) 9.4 % (0.0-7.3) H 02/04/21 15:13 Eos % (Auto) 8.3 % (0.0-4.3) H 02/04/21 15:13 Baso % (Auto) 1.0 % (0.0-1.8) 02/04/21 15:13 Lymph # (Auto) 1.2 K/mm3 (1.2-5.4) 02/04/21 15:13 [place] # (Auto) 0.5 K/mm3 (0.0-0.8) 02/04/21 15:13 Eos # (Auto) 0.5 K/mm3 (0.0-0.4) H 02/04/21 15:13 Baso # (Auto) 0.1 K/mm3 (0.0-0.1) 02/04/21 15:13 Seg Neutrophils % 59.6 % (40.0-70.0) 02/04/21 15:13 Seg Neutrophils # 3.3 K/mm3 (1.8-7.7) 02/04/21 15:13 PT 14.0 Sec. (12.2-14.9) 02/07/21 13:48 INR 1.09 (0.87-1.13) 02/07/21 13:48 APTT 30.2 Sec. (24.2-36.6) 02/07/21 13:48 Thrombin Time 17.1 Sec. (15.1-19.6) 02/04/21 15:13 Sodium 142 mmol/L (137-145) 02/12/21 05:34 Potassium 3.7 mmol/L (3.6-5.0) 02/12/21 05:34 Chloride 109.4 mmol/L (98-107) H 02/12/21 05:34 Carbon Dioxide 24 mmol/L (22-30) 02/12/21 05:34 Anion Gap 12 mmol/L 02/12/21 05:34 BUN 42 mg/dL (7-17) H 02/12/21 05:34 Creatinine 2.0 mg/dL (0.6-1.2) H 02/12/21 05:34 Estimated GFR 30 ml/min 02/12/21 05:34 BUN/Creatinine Ratio 21 % 02/12/21 05:34 Glucose 145 mg/dL (65-100) H 02/12/21 05:34 POC Glucose 105 mg/dL (70-105) 02/12/21 21:07 Hemoglobin A1c 7.0 % (4-6) H 02/06/21 15:13 Calcium 9.0 mg/dL (8.4-10.2) 02/12/21 05:34 Magnesium 2.20 mg/dL (1.7-2.3) 02/08/21 05:29 Total Bilirubin 0.20 mg/dL (0.1-1.2) 02/12/21 05:34 AST 17 units/L (5-40) 02/12/21 05:34 ALT 17 units/L (7-56) 02/12/21 05:34 Alkaline Phosphatase 76 units/L (35-129) 02/12/21 05:34 Total Creatine Kinase 240 units/L (30-135) H 02/04/21 15:25 CK-MB (CK-2) 3.4 ng/mL (0.0-4.0) 02/04/21 15:13 CK-MB (CK-2) Rel Index 1.4 (0-4) 02/04/21 15:13 Troponin T 0.033 ng/mL (0.00-0.029) H 02/04/21 20:09 Total Protein 5.9 g/dL (6.3-8.2) L 02/12/21 05:34 Albumin 3.2 g/dL (3.9-5) L 02/12/21 05:34 Albumin/Globulin Ratio 1.2 % 02/12/21 05:34 Triglycerides 121 mg/dL (2-149) 02/04/21 15:13 Cholesterol 117 mg/dL (50-199) 02/04/21 15:13 LDL Cholesterol Direct 67 mg/dL (50-130) 02/04/21 15:13 HDL Cholesterol 32 mg/dL (40-59) L 02/04/21 15:13 Cholesterol/HDL Ratio 3.65 % 02/04/21 15:13 TSH 1.140 mlU/mL (0.270-4.200) 02/04/21 15:25 Urine Color Yellow (Yellow) 02/04/21 16:51 Urine Turbidity Clear (Clear) 02/04/21 16:51 Urine pH 5.0 (5.0-7.0) 02/04/21 16:51 Ur Specific [place] 1.019 (1.003-1.030) 02/04/21 16:51 Urine Protein >500 mg/dL (Negative) 02/04/21 16:51 Urine Glucose (UA) Neg mg/dL (Negative) 02/04/21 16:51 Urine Ketones Tr mg/dL (Negative) 02/04/21 16:51 Urine Blood Neg (Negative) 02/04/21 16:51 Urine Nitrite Neg (Negative) 02/04/21 16:51 Ur Reducing Substances Not Reportable 02/04/21 16:51 Urine Bilirubin Neg (Negative) 02/04/21 16:51 Urine Ictotest Not Reportable 02/04/21 16:51 Urine Urobilinogen < 2.0 mg/dL (<2.0) 02/04/21 16:51 Ur Leukocyte Esterase Neg (Negative) 02/04/21 16:51 Urine WBC (Auto) 1.0 /HPF (0.0-6.0) 02/04/21 16:51 Urine RBC (Auto) 1.0 /HPF (0.0-6.0) 02/04/21 16:51 U Epithel Cells (Auto) 3.0 /HPF (0-13.0) 02/04/21 16:51 Urine Mucus Few /HPF 02/04/21 16:51 Coronavirus (PCR) Negative (Negative) 02/07/21 Unknown Tejeda/IV: Voiding Method External Female Catheter Active Medications - Current Medications Current Medications: Generic Name Dose Route Start Last Admin Trade Name Freq PRN Reason Stop Dose Admin Acetaminophen 650 mg 02/04/21 23:56 Acetaminophen 325 Mg Tab PO Q4H PRN Pain MILD(1-3)/Fever >100.5/FERNANDEZ Hydrocodone Bitart/Acetaminophen 1 each 02/05/21 08:00 02/13/21 10:13 Hydrocodone/Acetaminophen 7.5-325mg Tab PO Not Given TID [facility] Apixaban 5 mg 02/08/21 10:00 02/12/21 22:03 Apixaban 5 Mg Tab PO 5 mg Q12HR [facility] Administration Protocol Aspirin 325 mg 02/05/21 10:00 02/12/21 11:24 Aspirin 325 Mg Tab PO 325 mg QDAY [facility] Administration Atorvastatin Calcium 80 mg 02/05/21 22:00 02/12/21 22:03 Atorvastatin 40 Mg Tab PO 80 mg QHS [facility] Administration Citalopram Hydrobromide 20 mg 02/07/21 10:00 02/12/21 11:24 Citalopram 20 Mg Tab PO 20 mg QDAY [facility] Administration Diltiazem HCl 20 mg 02/13/21 12:00 Diltiazem 25 Mg/5 Ml Inj IV 02/13/21 12:01 ONCE ONE Docusate Sodium 100 mg 02/05/21 10:00 02/13/21 09:26 Docusate Sodium 100 Mg Cap PO Not Given BID [facility] Gabapentin 300 mg 02/07/21 18:00 02/12/21 17:11 Gabapentin 300 Mg Cap PO Not Given QPM [facility] Hydralazine HCl 25 mg 02/07/21 14:00 02/13/21 05:12 Hydralazine 25 Mg Tab PO Not Given Q8HR [facility] Sodium Chloride 1,000 mls @ 75 mls/hr 02/09/21 10:00 Nacl 0.45% 1000 Ml IV DIRECT [facility] Insulin Glargine 15 units 02/08/21 22:00 02/12/21 22:39 Insulin Glargine 100 Units/Ml SUB-Q Not Given QHS [facility] Insulin Human Lispro 0 unit 02/08/21 11:30 02/13/21 09:07 Insulin Lispro 100 Unit/Ml SUB-Q Not Given ACHS [facility] Protocol Isosorbide Mononitrate 60 mg 02/05/21 10:00 02/12/21 11:24 Isosorbide Mononitrate Er 60 Mg Tab PO 60 mg QDAY TIM Administration Levetiracetam 500 mg 02/05/21 01:00 02/12/21 22:03 Levetiracetam 500 Mg Tab PO 500 mg BID TIM Administration Metoclopramide HCl 5 mg 02/05/21 00:30 Metoclopramide 10 Mg/2 Ml Inj IV Q6H PRN Nausea And Vomiting Metoprolol Tartrate 25 mg 02/10/21 20:00 02/12/21 22:10 Metoprolol Tartrate 25 Mg Tab PO Not Given TID TIM Morphine Sulfate 2 mg 02/05/21 00:12 Morphine 2 Mg/1 Ml Inj IV Q4H PRN Pain, Moderate (4-6) Ondansetron HCl 4 mg 02/05/21 00:12 Ondansetron 4 Mg/2 Ml Inj IV Q8H PRN Nausea And Vomiting Oxycodone/Acetaminophen 1 tab 02/05/21 00:03 02/12/21 11:03 Oxycodone /Acetaminophen 5-325mg Tab PO 1 tab Q6H PRN Administration Pain, Moderate (4-6) Senna 8.6 mg 02/05/21 10:00 02/13/21 09:26 Sennosides 8.6 Mg Tab PO Not Given Q12HR TIM Sertraline HCl 100 mg 02/05/21 10:00 02/12/21 10:16 Sertraline 100 Mg Tab PO 100 mg QDAY TIM Administration Sodium Chloride 10 ml 02/05/21 10:00 02/12/21 22:04 Sodium Chloride 0.9% 10 Ml Flush Syringe IV Not Given BID TIM Sodium Chloride 10 ml 02/05/21 00:12 Sodium Chloride 0.9% 10 Ml Flush Syringe IV PRN PRN LINE FLUSH Sumatriptan Succinate 100 mg 02/05/21 01:10 Sumatriptan Succinate 50 Mg Tab PO DAILY PRN Migraine Headache Topiramate 50 mg 02/06/21 22:00 02/12/21 22:03 Topiramate Tab 25 Mg Tab PO 50 mg QHS TIM Administration Nutrition/Malnutrition Assess - Dietary Evaluation Nutrition/Malnutrition Findings: Nutrition Notes Start: 02/11/21 1 1:33 Freq: Status: Active Protocol: Document 02/11/21 11:33 MOE (Rec: 02/11/21 11:36 NHALL [id number]) Nutrition Notes Need for Assessment generated from: LOS Initial or Follow up Brief Note Current Diagnosis Acute Kidney Injury,Diabetes, Hypertension Other Pertinent Diagnosis Acute CVA Current Diet Cardiac/Consistent CHO Height 5 ft 5 in Weight 115.8 kg [place] Body Weight (kg) 56.81 BMI 42.5 Weight Status Morbidly Obese Subjective/Other Information Pt screened for LOS. She has consumed 81% of meals; awaiting placement for rehab. Percent of energy/protein needs met: 99% energy 81% pro Burn Absent Trauma Absent Current % PO Good (75-100%) Minimum of two criteria No Is patient on ventilator? No Is Patient Ambulatory and/or Out of Bed No REE-([facility]-confined to bed) 2061.312 Kcal/Kg value to use for calculation 14 Approximate Energy Requirements Using 1621 kcal/Kg Calculation Used for Recommendations Kcal/kg Additional Notes Pro needs 1-1.2g/kg adjBW: 86- 104g/day Fluid needs 1ml/kcal Nutrition Intervention Revisit per MD consult or patient Sign Off request:
[2021-02-13] MEDS: SERTRALINE 100 MG TAB PO SCH (11:25)
[2021-02-13] MEDS: levETIRAcetam 500 MG TAB PO SCH ×2 (11:25→21:24)
[2021-02-13] MEDS: ASPIRIN 325 MG TAB PO SCH (11:25)
[2021-02-13] MEDS: oxyCODONE /ACETAMINOPHEN 5-325MG TAB PO PRN (11:25)
[2021-02-13] MEDS: CITALOPRAM 20 MG TAB PO SCH (11:25)
[2021-02-13] MEDS: METOPROLOL TARTRATE 25 MG TAB PO SCH (11:25)
[2021-02-13] MEDS ORDERED: METOPROLOL TARTRATE 25 MG TAB PO SCH (11:36)
[2021-02-13] MEDS: APIXABAN 5 MG TAB PO SCH ×2 (11:39→21:23)
[2021-02-13] MEDS ORDERED: dilTIAZem 25 MG/5 ML INJ IV ONE (12:00)
[2021-02-13] MEDS ORDERED: HEPARIN/ 0.45% NACL DRIP 25,000 UNIT/500 ML BAG IV SCH (12:00)
--- NOTE | 2021-02-13 12:15 | Progress Note ---
Assessment and Plan 1. Acute kidney injury: VAL superimposed on CKD. ?vasomotor VAL. Split function R 22.5% and L 77.5%. Renal US showed moderate R sided hydronephrosis (chronic). Bladder scan (02/09) 27 ml. Urine studies ordered. Monitor renal function. Creatinine level fluctuates. Avoid nephrotoxic agents. Meds dosage based on GFR. 2. FEN: Hyperchloremia, monitor. Monitor lytes and volume status. 3. Acute CVA: MRI with acute infarction in R hemisphere. Followed by Neurology. 4. Elevated cardiac enzymes: Echo,EF#45-50%. Followed by Cards. 5. New onset A.fib: Eliquis. 6. DM type 2: HbA1C 7. Monitor. 7. HTN: S/p permissive HTN. Monitor BP. Adjust meds as needed. 8. Recurrent headache: On Topamax 50 mg QHS. Followed by Neuro. 9. LANNY. 10. Hx of seizure: Keppra. 11. Normochromic anemia: Monitor. Subjective: Patient was not examined today. However the examination findings from other providers noted. The current and previous medical records are reviewed in detail as are laboratory and imaging data reviewed when appropriate. Medications being given are also reviewed. In addition the case has been discussed with the attending hospitalist and the nurse when needed. New renal recommendations as above. Subjective Date of service: 02/13/21 Principal diagnosis: Acute CVA, New Onset AF Objective - Vital Signs Vital signs: Vital Signs - 12hr 02/13/21 02/13/21 02/13/21 04:50 07:41 07:56 Temperature 98.9 F Pulse Rate 113 H 115 H Respiratory 16 17 Rate Blood Pressure 99/63 141/82 Blood Pressure [Right] O2 Sat by Pulse 95 95 98 Oximetry 02/13/21 08:50 Temperature 98.2 F Pulse Rate 109 H Respiratory 18 Rate Blood Pressure Blood Pressure 141/82 [Right] O2 Sat by Pulse Oximetry - Lab 02/13/21 15:02 02/13/21 15:02 Most recent lab results Calcium 9.0 mg/dL (8.4-10.2) 02/12/21 05:34 Magnesium 2.20 mg/dL (1.7-2.3) 02/08/21 05:29 Medications & Allergies - Medications Allergies/Adverse Reactions: Allergies No Known Allergies Allergy (Verified 07/12/20 05:04) Home Medications: Home Medications Medication Instructions Recorded Confirmed Last Taken Type Gabapentin 300 mg PO TID 07/12/20 02/06/21 07/11/20 History Aspirin 325 mg PO QDAY 07/13/20 02/06/21 Unknown History Atorvastatin [Lipitor] 80 mg PO DAILY 07/13/20 02/06/21 Unknown History HYDROcodone/ACETAMINOPHEN 1 each PO TID 07/13/20 02/06/21 Unknown History [Hydrocodone-Acetamin 7.5-300] Sertraline [Zoloft] 100 mg PO QDAY 07/13/20 02/06/21 Unknown History levETIRAcetam [Keppra TAB] 500 mg PO BID 07/13/20 02/06/21 Unknown History ISOSORBIDE MONOnitrate [Imdur ER] 60 mg PO QDAY #30 tablet 07/19/20 02/06/21 Unknown Rx Metoprolol [Lopressor TAB] 25 mg PO BID #60 tablet 07/19/20 02/06/21 Unknown Rx hydrALAZINE [Apresoline TAB] 50 mg PO Q8HR #240 tablet 07/19/20 02/06/21 Unknown Rx Active Medications: Generic Name Dose Route Start Last Admin Trade Name Freq PRN Reason Stop Dose Admin Acetaminophen 650 mg 02/04/21 23:56 Acetaminophen 325 Mg Tab PO Q4H PRN Pain MILD(1-3)/Fever >100.5/FERNANDEZ Hydrocodone Bitart/Acetaminophen 1 each 02/05/21 08:00 02/13/21 10:13 Hydrocodone/Acetaminophen 7.5-325mg Tab PO Not Given TID TIM Apixaban 5 mg 02/13/21 22:00 Apixaban 5 Mg Tab PO Q12HR TIM Protocol Aspirin 325 mg 02/05/21 10:00 02/13/21 11:25 Aspirin 325 Mg Tab PO 325 mg QDAY TIM Administration Atorvastatin Calcium 80 mg 02/05/21 22:00 02/12/21 22:03 Atorvastatin 40 Mg Tab PO 80 mg QHS TIM Administration Citalopram Hydrobromide 20 mg 02/07/21 10:00 02/13/21 11:25 Citalopram 20 Mg Tab PO 20 mg QDAY TIM Administration Docusate Sodium 100 mg 02/05/21 10:00 02/13/21 09:26 Docusate Sodium 100 Mg Cap PO Not Given BID [facility] Gabapentin 300 mg 02/07/21 18:00 02/12/21 17:11 Gabapentin 300 Mg Cap PO Not Given QPM [facility] Sodium Chloride 1,000 mls @ 75 mls/hr 02/09/21 10:00 Nacl 0.45% 1000 Ml IV DIRECT [facility] Insulin Glargine 15 units 02/08/21 22:00 02/12/21 22:39 Insulin Glargine 100 Units/Ml SUB-Q Not Given QHS [facility] Insulin Human Lispro 0 unit 02/08/21 11:30 02/13/21 11:42 Insulin Lispro 100 Unit/Ml SUB-Q Not Given ACHS [facility] Protocol Isosorbide Mononitrate 60 mg 02/05/21 10:00 02/13/21 11:25 Isosorbide Mononitrate Er 60 Mg Tab PO 60 mg QDAY [facility] Administration Levetiracetam 500 mg 02/05/21 01:00 02/13/21 11:25 Levetiracetam 500 Mg Tab PO 500 mg BID [facility] Administration Metoclopramide HCl 5 mg 02/05/21 00:30 Metoclopramide 10 Mg/2 Ml Inj IV Q6H PRN Nausea And Vomiting Metoprolol Tartrate 50 mg 02/13/21 12:00 Metoprolol Tartrate 50 Mg Tab PO TID [facility] Morphine Sulfate 2 mg 02/05/21 00:12 Morphine 2 Mg/1 Ml Inj IV Q4H PRN Pain, Moderate (4-6) Ondansetron HCl 4 mg 02/05/21 00:12 Ondansetron 4 Mg/2 Ml Inj IV Q8H PRN Nausea And Vomiting Oxycodone/Acetaminophen 1 tab 02/05/21 00:03 02/13/21 11:25 Oxycodone /Acetaminophen 5-325mg Tab PO 1 tab Q6H PRN Administration Pain, Moderate (4-6) Senna 8.6 mg 02/05/21 10:00 02/13/21 09:26 Sennosides 8.6 Mg Tab PO Not Given Q12HR [facility] Sertraline HCl 100 mg 02/05/21 10:00 02/13/21 11:25 Sertraline 100 Mg Tab PO 100 mg QDAY [facility] Administration Sodium Chloride 10 ml 02/05/21 10:00 02/13/21 11:25 Sodium Chloride 0.9% 10 Ml Flush Syringe IV Not Given BID TIM Sodium Chloride 10 ml 02/05/21 00:12 Sodium Chloride 0.9% 10 Ml Flush Syringe IV PRN PRN LINE FLUSH Sumatriptan Succinate 100 mg 02/05/21 01:10 Sumatriptan Succinate 50 Mg Tab PO DAILY PRN Migraine Headache Topiramate 50 mg 02/06/21 22:00 02/12/21 22:03 Topiramate Tab 25 Mg Tab PO 50 mg QHS TIM Administration
--- NOTE | 2021-02-13 12:29 | Cat Scan Report ---
CT HEAD WITHOUT CONTRAST HISTORY: Evaluate confusion. TECHNIQUE: Axial imaging performed from the skull apex through the skull base without the use of con trast. All CT scans at this location are performed using CT dose reduction for ALARA by means of aut omated exposure control. COMPARISON: 02/04/2021 FINDINGS: Parenchyma: No acute intracranial hemorrhage or parenchymal abnormality. Mild diffuse volume loss is stable. Mild hypoattenuation throughout the white matter is noted and consistent with chronic micro vascular ischemic disease. Ventricles: There is mild diffuse brain atrophy with commensurate ventricular enlargement which is l ikely age appropriate. Soft tissues: Soft tissues including the orbits appear normal. Bones: No acute osseous abnormality. Sinuses: Sinuses and mastoid air cells are clear. IMPRESSION: No acute abnormality. Mild volume loss and chronic white matter changes are again noted a nd not significantly changed since 02/04/2021 exam. Signer Name: Tyree Torres Jr, MD Signed: 02/13/2021 12:24 PM Workstation Name: [id number]
--- NOTE | 2021-02-13 13:30 | Progress Note ---
Assessment and Plan Telemetry reviewed: Atrial fibrillation 100s. High heart rate of A. fib 180 noted this a.m. while patient was working with PT. Atrial fibrillation * anticoagulated with Eliquis 5 mg twice daily. * Optimize rate control: Increase metoprolol to 50 mg p.o. 3 times daily * Continue to monitor on telemetry Coronary artery disease * Patient reports history of acute myocardial infarction * TTE 06/2020 - mild-mod concentric LVH, EF 55-60%, impaired LV relaxation, trace AR. * Lexiscan stress MPI 06/2020 - negative for ischemia, EF 62%. * Troponins were minimally elevated, unchanging, subacute and nonspecific upon admission. Continue to trend CE's * Optimize cardiac regimen: Aspirin 81 mg p.o. daily, atorvastatin 80 mg nightly, beta-emmanuel. VAL * No YESSENIA inhibitor/ARB in setting of acute kidney injury. Avoid nephrotoxic agents. (1) Ischemic cerebrovascular accident (CVA) Current Visit: Yes Status: Acute (2) Atrial fibrillation Current Visit: Yes Status: Chronic Qualifiers: Atrial fibrillation type: unspecified Qualified Code(s): I48.91 - Unspecified atrial fibrillation Plan to address problem: ?New onset (3) NSVT (nonsustained ventricular tachycardia) Current Visit: Yes Status: Acute Plan to address problem: 4-beat run noted 02/07 @ 0415 (pt asymptomatic) (4) VAL (acute kidney injury) Current Visit: Yes Status: Acute (5) Elevated troponin Current Visit: Yes Status: Acute Plan to address problem: -Minimally elevated troponin in the setting of acute CVA & VAL -Pt denies chest pain -No acute ischemic changes on ECG (6) CAD (coronary artery disease) Current Visit: Yes Status: Chronic Qualifiers: Coronary Disease-Associated Artery/Lesion type: [place] artery [place] vs. transplanted heart: [place] heart Plan to address problem: ?H/o [place] per pt report (7) LANNY (obstructive sleep apnea) Current Visit: Yes Status: Chronic (8) HTN (hypertension) Current Visit: Yes Status: Chronic Qualifiers: Hypertension type: essential hypertension Qualified Code(s): I10 - Essential (primary) hypertension (9) DM2 (diabetes mellitus, type 2) Status: Chronic (10) Seizure disorder Current Visit: Yes Status: Chronic (11) History of CVA (cerebrovascular accident) Current Visit: Yes Status: Chronic Subjective Date of service: 02/13/21 Principal diagnosis: Acute CVA, New Onset AF Interval history: Patient resting comfortably in bed. No shortness of breath or chest pain overnight. Telemetry reviewed: Atrial fib 100s. High heart rate of A. fib 180s noted during PT visit. Objective Last Vital Signs Temp 98.5 F 02/13/21 11:10 Pulse 76 02/13/21 11:10 Resp 18 02/13/21 11:10 BP 113/89 02/13/21 11:10 Pulse Ox 98 02/13/21 07:56 - Physical Examination General: No Apparent Distress HEENT: Positive: Normocephaly, Mucus Membranes Moist Neck: Positive: neck supple, trachea midline. Negative: JVD/HJR Cardiac: Positive: irregularly irregular, S1/S2 Lungs: Positive: clear to auscultation, Normal Breath Sounds Neuro: Positive: Weakness (left-sided) Abdomen: Positive: Soft. Negative: Tender Skin: Negative: Rash Musculoskeletal: No Pain Extremities: Present: upper extr. pulses, lower extr. pulses. Absent: edema - Imaging and Cardiology EKG: report reviewed, image reviewed Echo: report reviewed (02/05/2021 - negative bubble study, severe concentric LVH, EF 45-50%, trace pericardial effusion), other (06/2020 - mild-mod concentric LVH, EF 55-60%, impaired LV relaxation, trace AR) - Telemetry EKG Rhythm: Atrial Fibrillation
[2021-02-13] MEDS: METOPROLOL TARTRATE 50 MG TAB PO SCH ×2 (14:30→21:22)
[2021-02-13 15:18] LABS: Basophils % (Auto) 0.5 % (0.0-1.8); Eosinophils # (Auto) 0.3 K/mm3 (0.0-0.4); Eosinophils % (Auto) 5.3 % (0.0-4.3); Hematocrit 33.5 % (30.3-42.9); Lymphocytes # (Auto) 1.5 K/mm3 (1.2-5.4); Mean Corpuscular HGB Conc 33 % (30-34); Mean Corpuscular Volume 78 fl (79-97); Monocytes # (Auto) 0.5 K/mm3 (0.0-0.8); Monocytes % (Auto) 9.4 % (0.0-7.3); Platelet Count 208 K/mm3 (140-440); Red Blood Count 4.31 M/mm3 (3.65-5.03)
[2021-02-13 15:35] LABS: INR 1.18 (0.87-1.13)
[2021-02-13 15:40] LABS: Albumin 3.1 g/dL (3.9-5); Calcium 9.5 mg/dL (8.4-10.2)
[2021-02-13] MEDS: GABAPENTIN 300 MG CAP PO SCH (17:22)
[2021-02-13] MEDS: TOPIRAMATE TAB 25 MG TAB PO SCH (21:22)
[2021-02-13] MEDS: INSULIN GLARGINE 100 UNITS/ML SUB-Q SCH (21:24)
--- NOTE | 2021-02-14 09:21 | Progress Note ---
Assessment and Plan 1. Acute kidney injury: VAL superimposed on CKD. ?vasomotor VAL. Split function R 22.5% and L 77.5%. Renal US showed moderate R sided hydronephrosis (chronic). Bladder scan (02/09) 27 ml. Urine studies ordered. Monitor renal function. Creatinine level fluctuates. Avoid nephrotoxic agents. Meds dosage based on GFR. No labs from today. 2. FEN: Hyperchloremia, monitor. Monitor lytes and volume status. 3. Acute CVA: MRI with acute infarction in R hemisphere. Followed by Neurology. 4. Elevated cardiac enzymes: Echo,EF#45-50%. Followed by Cards. 5. New onset A.fib: Eliquis. 6. DM type 2: HbA1C 7. Monitor. 7. HTN: S/p permissive HTN. Monitor BP. Adjust meds as needed. 8. Recurrent headache: Followed by Neuro. 9. LANNY. 10. Hx of seizure: Keppra. 11. Normochromic anemia: Monitor. Subjective: Patient was not examined today. However the examination findings from other providers noted. The current and previous medical records are reviewed in detail as are laboratory and imaging data reviewed when appropriate. Medications being given are also reviewed. In addition the case has been discussed with the attending hospitalist and the nurse when needed. New renal recommendations as above. Subjective Date of service: 02/14/21 Principal diagnosis: Acute CVA, New Onset AF Objective - Vital Signs Vital signs: Vital Signs - 12hr 02/13/21 02/13/21 02/14/21 21:22 22:00 08:23 Temperature 98.6 F Pulse Rate 104 H 101 H 120 H Respiratory 16 18 Rate Blood Pressure 142/89 139/80 O2 Sat by Pulse 95 97 Oximetry - Lab 02/13/21 15:02 02/13/21 15:02 Most recent lab results Calcium 9.5 mg/dL (8.4-10.2) 02/13/21 15:02 Magnesium 2.20 mg/dL (1.7-2.3) 02/08/21 05:29 Medications & Allergies - Medications Allergies/Adverse Reactions: Allergies No Known Allergies Allergy (Verified 07/12/20 05:04) Home Medications: Home Medications Medication Instructions Recorded Confirmed Last Taken Type Sertraline [Zoloft] 100 mg PO QDAY 07/13/20 02/06/21 Unknown History Apixaban [Eliquis] 5 mg PO Q12HR #60 tablet 02/14/21 Unknown Rx Aspirin EC [Halfprin EC] 81 mg PO QDAY #30 tablet. 02/14/21 Unknown Rx AtorvaSTATin [Lipitor] 80 mg PO QHS #60 tablet 02/14/21 Unknown Rx Gabapentin 300 mg PO QPM #30 capsule 02/14/21 Unknown Rx ISOSORBIDE MONOnitrate [Imdur ER] 60 mg PO QDAY #30 tablet 02/14/21 Unknown Rx Insulin Glargine [Lantus VIAL] 15 units SUB-Q QHS #10 ml 02/14/21 Unknown Rx Metoprolol [Lopressor TAB] 50 mg PO TID #90 tablet 02/14/21 Unknown Rx Topiramate [Topamax] 50 mg PO DAILY #30 tablet 02/14/21 Unknown Rx levETIRAcetam [Keppra TAB] 500 mg PO BID #60 02/14/21 Unknown Rx Active Medications: Generic Name Dose Route Start Last Admin Trade Name Freq PRN Reason Stop Dose Admin Acetaminophen 650 mg 02/04/21 23:56 Acetaminophen 325 Mg Tab PO Q4H PRN Pain MILD(1-3)/Fever >100.5/FERNANDEZ Hydrocodone Bitart/Acetaminophen 1 each 02/05/21 08:00 02/13/21 21:24 Hydrocodone/Acetaminophen 7.5-325mg Tab PO 1 each TID TIM Administration Apixaban 5 mg 02/13/21 22:00 02/13/21 21:23 Apixaban 5 Mg Tab PO 5 mg Q12HR TIM Administration Protocol Aspirin 81 mg 02/14/21 10:00 Aspirin 81 Mg Tab Chew PO QDAY TIM Atorvastatin Calcium 80 mg 02/05/21 22:00 02/13/21 21:23 Atorvastatin 40 Mg Tab PO 80 mg QHS TIM Administration Citalopram Hydrobromide 20 mg 02/07/21 10:00 02/13/21 11:25 Citalopram 20 Mg Tab PO 20 mg QDAY TIM Administration Docusate Sodium 100 mg 02/05/21 10:00 02/13/21 21:33 Docusate Sodium 100 Mg Cap PO Not Given BID TIM Gabapentin 300 mg 02/07/21 18:00 02/13/21 17:22 Gabapentin 300 Mg Cap PO Not Given QPM TIM Sodium Chloride 1,000 mls @ 75 mls/hr 02/09/21 10:00 Nacl 0.45% 1000 Ml IV DIRECT TIM Insulin Glargine 15 units 02/08/21 22:00 02/13/21 21:24 Insulin Glargine 100 Units/Ml SUB-Q 15 units QHS TIM Administration Insulin Human Lispro 0 unit 02/08/21 11:30 02/13/21 21:25 Insulin Lispro 100 Unit/Ml SUB-Q 2 unit ACHS [facility] Administration Protocol Isosorbide Mononitrate 60 mg 02/05/21 10:00 02/13/21 11:25 Isosorbide Mononitrate Er 60 Mg Tab PO 60 mg QDAY [facility] Administration Levetiracetam 500 mg 02/05/21 01:00 02/13/21 21:24 Levetiracetam 500 Mg Tab PO 500 mg BID TIM Administration Metoclopramide HCl 5 mg 02/05/21 00:30 Metoclopramide 10 Mg/2 Ml Inj IV Q6H PRN Nausea And Vomiting Metoprolol Tartrate 50 mg 02/13/21 12:00 02/13/21 21:22 Metoprolol Tartrate 50 Mg Tab PO 50 mg TID [facility] Administration Morphine Sulfate 2 mg 02/05/21 00:12 Morphine 2 Mg/1 Ml Inj IV Q4H PRN Pain, Moderate (4-6) Ondansetron HCl 4 mg 02/05/21 00:12 Ondansetron 4 Mg/2 Ml Inj IV Q8H PRN Nausea And Vomiting Oxycodone/Acetaminophen 1 tab 02/05/21 00:03 02/13/21 11:25 Oxycodone /Acetaminophen 5-325mg Tab PO 1 tab Q6H PRN Administration Pain, Moderate (4-6) Senna 8.6 mg 02/05/21 10:00 02/13/21 21:33 Sennosides 8.6 Mg Tab PO Not Given Q12HR [facility] Sertraline HCl 100 mg 02/05/21 10:00 02/13/21 11:25 Sertraline 100 Mg Tab PO 100 mg QDAY [facility] Administration Sodium Chloride 10 ml 02/05/21 10:00 02/13/21 21:34 Sodium Chloride 0.9% 10 Ml Flush Syringe IV 10 ml BID TIM Administration Sodium Chloride 10 ml 02/05/21 00:12 Sodium Chloride 0.9% 10 Ml Flush Syringe IV PRN PRN LINE FLUSH Sumatriptan Succinate 100 mg 02/05/21 01:10 Sumatriptan Succinate 50 Mg Tab PO DAILY PRN Migraine Headache Topiramate 50 mg 02/06/21 22:00 02/13/21 21:22 Topiramate Tab 25 Mg Tab PO 50 mg QHS TIM Administration
--- NOTE | 2021-02-14 09:28 | Progress Note ---
Assessment and Plan Patient reports no shortness of breath or chest pain overnight Telemetry reviewed: Atrial fibrillation 80-90s. No events Atrial fibrillation * anticoagulated with Eliquis 5 mg twice daily. * Continue current rate control regimen: Metoprolol 50 mg 3 times daily * Continue to monitor on telemetry Coronary artery disease * Patient reports history of acute myocardial infarction * TTE 06/2020 - mild-mod concentric LVH, EF 55-60%, impaired LV relaxation, trace AR. * Lexiscan stress MPI 06/2020 - negative for ischemia, EF 62%. * Troponins were minimally elevated, unchanging, subacute and nonspecific upon admission. Continue to trend CE's * Continue current cardiac regimen including ASA 81 mg daily, atorvastatin 80 mg nightly, metoprolol 50 mg 3 times daily, Imdur 60 mg daily VAL * No YESSENIA inhibitor/ARB in setting of acute kidney injury. Avoid nephrotoxic agents. DVT prophylaxis * Anticoagulated with Eliquis Patient is currently stable cardiac status with adequate rate control and appropriately anticoagulated. Will follow. This patient was seen in conjunction with Dr Strong who agrees with assessment and plan of care (1) Ischemic cerebrovascular accident (CVA) Current Visit: Yes Status: Acute (2) Atrial fibrillation Current Visit: Yes Status: Chronic Qualifiers: Atrial fibrillation type: unspecified Qualified Code(s): I48.91 - Unspecified atrial fibrillation Plan to address problem: (3) NSVT (nonsustained ventricular tachycardia) Current Visit: Yes Status: Acute Plan to address problem: (4) VAL (acute kidney injury) Current Visit: Yes Status: Acute (5) Elevated troponin Current Visit: Yes Status: Acute (6) CAD (coronary artery disease) Current Visit: Yes Status: Chronic Qualifiers: Coronary Disease-Associated Artery/Lesion type: [place] artery [place] vs. transplanted heart: [place] heart Plan to address problem: (7) LANNY (obstructive sleep apnea) Current Visit: Yes Status: Chronic (8) HTN (hypertension) Current Visit: Yes Status: Chronic Qualifiers: Hypertension type: essential hypertension Qualified Code(s): I10 - Essential (primary) hypertension (9) DM2 (diabetes mellitus, type 2) Status: Chronic (10) Seizure disorder Current Visit: Yes Status: Chronic (11) History of CVA (cerebrovascular accident) Current Visit: Yes Status: Chronic Subjective Date of service: 02/14/21 Principal diagnosis: Acute CVA, New Onset AF Interval history: Patient resting comfortably in bed. No shortness of breath or chest pain overnight. Telemetry reviewed: Atrial fib 80-90s. No events Objective Last Vital Signs Temp 98.6 F 02/14/21 08:23 Pulse 120 H 02/14/21 08:23 Resp 18 02/14/21 08:23 BP 139/80 02/14/21 08:23 Pulse Ox 97 02/14/21 08:23 - Physical Examination General: No Apparent Distress HEENT: Positive: Normocephaly, Mucus Membranes Moist Neck: Positive: neck supple, trachea midline. Negative: JVD/HJR Cardiac: Positive: Reg Rate and Rhythm, S1/S2 Lungs: Positive: Normal Exam, Normal Breath Sounds Neuro: Positive: Weakness (left-sided) Abdomen: Positive: Soft. Negative: Tender Skin: Negative: Rash Musculoskeletal: No Pain Extremities: Present: upper extr. pulses, lower extr. pulses. Absent: edema - Labs and Meds Cardiac Enzymes 02/13/21 Range/Units 15:02 AST 21 (5-40) units/L Coagulation 02/13/21 Range/Units 15:02 PT 15.0 H (12.2-14.9) Sec. INR 1.18 H (0.87-1.13) APTT 32.0 (24.2-36.6) Sec. CBC 02/13/21 Range/Units 15:02 WBC 5.3 (4.5-11.0) K/mm3 RBC 4.31 (3.65-5.03) M/mm3 Hgb 11.0 (10.1-14.3) gm/dl Hct 33.5 (30.3-42.9) % Plt Count 208 (140-440) K/mm3 Lymph # (Auto) 1.5 (1.2-5.4) K/mm3 [place] # (Auto) 0.5 (0.0-0.8) K/mm3 Eos # (Auto) 0.3 (0.0-0.4) K/mm3 Baso # (Auto) 0.0 (0.0-0.1) K/mm3 Comprehensive Metabolic Panel 02/13/21 02/13/21 Range/Units 15:02 15:02 Sodium 142 (137-145) mmol/L Potassium 4.1 (3.6-5.0) mmol/L Chloride 110.7 H (98-107) mmol/L Carbon Dioxide 20 L (22-30) mmol/L BUN 35 H (7-17) mg/dL Creatinine 1.8 H 1.7 H (0.6-1.2) mg/dL Glucose 96 (65-100) mg/dL Calcium 9.5 (8.4-10.2) mg/dL AST 21 (5-40) units/L ALT 19 (7-56) units/L Alkaline Phosphatase 77 (35-129) units/L Total Protein 6.5 (6.3-8.2) g/dL Albumin 3.1 L (3.9-5) g/dL - Imaging and Cardiology EKG: report reviewed, image reviewed Echo: report reviewed (02/05/2021 - negative bubble study, severe concentric LVH, EF 45-50%, trace pericardial effusion), other (06/2020 - mild-mod concentric LVH, EF 55-60%, impaired LV relaxation, trace AR) - Telemetry EKG Rhythm: Atrial Fibrillation
[2021-02-14] MEDS: SENNOSIDES 8.6 MG TAB PO SCH (09:36)
[2021-02-14] MEDS: DOCUSATE SODIUM 100 MG CAP PO SCH (09:36)
[2021-02-14] MEDS: HYDROcodone/ACETAMINOPHEN 7.5-325MG TAB PO SCH ×2 (09:36→13:56)
[2021-02-14] MEDS: SERTRALINE 100 MG TAB PO SCH (09:36)
[2021-02-14] MEDS: CITALOPRAM 20 MG TAB PO SCH (09:37)
[2021-02-14] MEDS: levETIRAcetam 500 MG TAB PO SCH (09:37)
[2021-02-14] MEDS: APIXABAN 5 MG TAB PO SCH (09:37)
[2021-02-14] MEDS: METOPROLOL TARTRATE 50 MG TAB PO SCH ×2 (09:37→13:56)
[2021-02-14] MEDS: INSULIN LISPRO 100 UNIT/ML SUB-Q SCH ×2 (09:39→16:55)
[2021-02-14] MEDS ORDERED: ASPIRIN 81 MG TAB CHEW PO SCH (10:00)
--- NOTE | 2021-02-14 10:29 | Discharge Summary ---
Providers - Providers Date of Admission: 02/04/21 17:25 Date of discharge: 02/14/21 Attending physician: TARA SAENZ 02/05/21 00:15 Occupational Therapy Evaluate and Treat [CONS] Routine Comment: Reason For Exam: Neuro deficits Physical Therapy Evaluation and Treat [CONS] Routine Comment: Reason For Exam: Neuro deficits 02/05/21 00:18 Consult to Physician [CONS] Routine Comment: Consulting Provider: LYDIA ALVARADO Physician Instructions: Reason For Exam: cva 02/07/21 08:07 Consult to Cardiology [CONS] Routine Consulting Provider: AGUSTIN ODELL Reason For Exam: 3 second heart pause 02/08/21 09:12 Consult to Physician [CONS] Routine Comment: Consulting Provider: ROSELIA HENRY Physician Instructions: Reason For Exam: VAL/CKD 02/12/21 11:30 Consult to Mental Health [CONS] Routine Reason For Exam: Depression Primary care physician: CHANNELER INSOLE Hospitalization Condition: Good Hospital course: 65-year-old female. The patient has a complex past medical history, including obesity, cholelithiasis, hydronephrosis, status post stent with stent removal, ejection fraction 55 to 60%, obesity, hypertension, seizure, stroke x2, with reported residual right-sided weakness, myocardial infarction, obstructive sleep apnea with home CPAP, and diabetes. She is sent to the emergency room by an outpatient neurology physician, shirley Olivera Apparently, the patient has been having complaints of headaches and feeling like she has been having an unsteady gait, since January 2020. An outpatient MRI was obtained today, through [facility] imaging services, and was reportedly found to have a stroke or subacute stroke of unknown duration or chronicity, but she was referred to the emergency room for evaluation. The patient complains of mild headache. She has chronic blurry vision. She denies chest pain. She has chronic shortness of breath. She denies hematemesis and bright red blood per rectum. She denies urinary symptoms. She denies cough. She complains of general weakness, but denies new/different weakness. 02/05/2021 Neurology consult appreciated MRI consistent with right CVA with left-sided weakness 02/06/2021 Patient is too weak and altered for PT and OT Left-sided weakness persists 02/07/2021 Patient with altered sensorium Left-sided weakness persists Patient had EEG which did not show any seizure activity 02/08. Started on anticoagulation for atrial fibrillation. Patient will need placement. Cardiology and neurology following 02/09. She has left-sided weakness. Continue current medications. Awaiting placement 02/10. No complaints. Needs placement. Vitals stable. Cardiology follow up in the office in 1-2 weeks advised 02/11. Has no complaints. Still has left-sided weakness. Waiting for placement. Remains on metoprolol for heart rate control. On Eliquis. Awaiting placement. Had P2P with insurance rep today 02/12. Informed by RN that patient has not been taking oral medications. I asked patient why she is not taking medications and when she says that she just does not want to take medications. We will consult psychiatry to see. She is hemodynamically stable however. Still awaiting placement 02/13. Had A. fib with RVR and metoprolol dose was increased. Continued on eliquis. Seen by psych as she has not been taking her medications. She has been encouraged to take her medications. Cardiology, neurology, nephrology and psychiatry recs appreciated. 02/14. Patient metoprolol has been increased and blood pressure has been stable. She has been accepted at a facility and will be discharged to follow up with neurology, cardiology, nephrology at discharge. Disposition: [id number] Final Discharge Diagnosis (Prints w/discharge instructions): Atrial fibrillation with RVR. Acute CVA Time spent for discharge: 50 minutes Core Measure Documentation - Palliative Care Palliative Care/ Comfort Measures: Not Applicable - Core Measures Any of the following diagnoses?: stroke - Stroke Discharge Requirements Statin for LDL = or >70 mg/dl on DC: Yes Anticoag for atrial fib/atrial flutter: Yes Antithrombotic for ischemic stroke: Yes Exam - Physical Exam Narrative exam: VITAL SIGNS: Reviewed. GENERAL: Awake HEAD: No signs of head trauma. EYES: Pupils are equal. Extraocular motions intact. MOUTH: Oropharynx is normal. NECK: No adenopathy, no JVD. CHEST: Chest with diminished breath sounds bilaterally. No wheezes, rales, or rhonchi. CARDIAC: normal S1 and S2, without murmurs, gallops, or rubs. ABDOMEN: Soft, non tender and non distended. No rebound or guarding, and no masses palpated. Bowel Sounds normal. MUSCULOSKELETAL: No edema NEUROLOGIC EXAM: Alert and oriented x3. Has left-sided weakness SKIN: No obvious lesions - Constitutional Vitals: Temp Pulse Resp BP Pulse Ox 98.6 F 120 H 18 139/80 97 02/14/21 08:23 02/14/21 09:38 02/14/21 09:47 02/14/21 09:38 02/14/21 08:23 Plan Diet: low fat, low cholesterol, low salt Additional Instructions: Continue medications as prescribed. Follow-up with cardiology in 1 to 2 weeks. Follow-up with nephrology in 1 to 2 weeks. Follow- up with neurology in 1 to 2 weeks Follow up with: PRIMARY CAREMD [Primary Care Provider] - 3-5 Days AGUSTIN ODELL MD [Staff Physician] - 7 Days TWIN JOHN MD [Staff Physician] - 7 Days ROSELIA HENRY MD [Staff Physician] - 7 Days Prescriptions: Insulin Glargine [Lantus VIAL] 15 units SUB-Q QHS #10 ml AtorvaSTATin [Lipitor] 80 mg PO QHS #60 tablet Apixaban [Eliquis] 5 mg PO Q12HR #60 tablet Gabapentin 300 mg PO QPM #30 capsule Aspirin EC [Halfprin EC] 81 mg PO QDAY #30 tablet. ISOSORBIDE MONOnitrate [Imdur ER] 60 mg PO QDAY #30 tablet levETIRAcetam [Keppra TAB] 500 mg PO BID #60 Metoprolol [Lopressor TAB] 50 mg PO TID #90 tablet Topiramate [Topamax] 50 mg PO DAILY #30 tablet
[2021-02-14 17:05] VITALS: BP 148/72
[2021-02-14] MEDS: GABAPENTIN 300 MG CAP PO SCH (17:17)
== END 2021-02-14 18:49 | DRG 64 ==
LOC: ED 14:47 → 4A 17:25 → UNDODISIN 02-08 15:52
PROVIDERS: ADMIT Internal Medicine; ATTEND Internal Medicine
DX: I63.9 Cerebral infarction, unspecified (principal); N17.0 Acute kidney failure with tubular necrosis; I48.20 Chronic atrial fibrillation, unspecified; Z68.41 Body mass index [BMI] 40.0-44.9, adult; I47.2 Ventricular tachycardia; G81.94 Hemiplegia, unspecified affecting left nondominant side; Z20.822 Contact with and (suspected) exposure to COVID-19; M19.90 Unspecified osteoarthritis, unspecified site; R29.703 NIHSS score 3; I12.9 Hypertensive chronic kidney disease with stage 1 through stage 4 chronic kidney disease, or unspecified chronic kidney disease; E11.22 Type 2 diabetes mellitus with diabetic chronic kidney disease; R79.89 Other specified abnormal findings of blood chemistry; Z86.73 Personal history of transient ischemic attack (TIA), and cerebral infarction without residual deficits; I25.10 Atherosclerotic heart disease of native coronary artery without angina pectoris; Z79.82 Long term (current) use of aspirin; E78.2 Mixed hyperlipidemia; I25.2 Old myocardial infarction; Z79.01 Long term (current) use of anticoagulants; Z79.4 Long term (current) use of insulin; Z79.899 Other long term (current) drug therapy; F01.50 Vascular dementia, unspecified severity, without behavioral disturbance, psychotic disturbance, mood disturbance, and anxiety; G43.909 Migraine, unspecified, not intractable, without status migrainosus; E66.01 Morbid (severe) obesity due to excess calories; M79.7 Fibromyalgia; G40.909 Epilepsy, unspecified, not intractable, without status epilepticus; E87.8 Other disorders of electrolyte and fluid balance, not elsewhere classified; D64.9 Anemia, unspecified
CPT/HCPCS: 36415; 70450; 70544; 70547; 70551; 71045; 76770; 80048; 80053; 80061; 81001; 82550; 82553; 82565; 82962; 83036; 83735; 84443; 84484; 85025; 85027; 85610; 85670; 85730; 87086; 93005; 93308; 93321; 93325; 93880; 95819; 96365; 96375; G0378; A9270-GY; J1644; J1815; J7040; U0003

== ENCOUNTER 2021-04-12 16:40 | Inpatient (IN) | payer MEDICARE ==
[2021-04-12] MEDS ORDERED: dilTIAZem 25 MG/5 ML INJ IV ONE (20:57)
--- NOTE | 2021-04-12 20:58 | Emergency Department Report ---
HPI - General Chief Complaint: Dyspnea/Respdistress Time Seen by Provider: 04/12/21 20:20 - HPI HPI: This is a 65-year-old -[place] female presents to the emergency department with multiple complaints including a generalized headache, chest pain, shortness of breath, generalized weakness, body aches, that has been going on for the past 2 days. She has a past medical history that includes cholelithiasis, hydronephrosis, paroxysmal atrial fibrillation, 14 TIA, CVA x2 with residual right-sided weakness seizures, hypertension. The patient was recently admitted here in January of this year for a stroke work-up after having headaches and an unsteady gait. She follows up outpatient with a neurologist, Dr. Ribera. Patient's transit mix operator is through [facility]. Other than her home medications she has not taken anything for symptoms prior to presentation today. ED Past Medical Hx - Past Medical History Hx Hypertension: Yes Hx CVA: Yes (right side weakness) Hx Heart Attack/AMI: Yes (Recent CO. + Cardiac clearance.) Hx Diabetes: Yes Hx Renal Disease: Yes (VAL. Pyelonephritis. Hydronephrosis) Hx Seizures: Yes Additional medical history: TIA X14 had seizure after the last one became unconscious, Afib - Surgical History Past Surgical History?: Yes Additional Surgical History: B/L Knee, carpal tunnel, kidney stents, - Social History Smoking Status: Never Smoker - Medications Home Medications: Home Medications Medication Instructions Recorded Confirmed Last Taken Type Sertraline [Zoloft] 100 mg PO QDAY 07/13/20 02/06/21 Unknown History Apixaban [Eliquis] 5 mg PO Q12HR #60 tablet 02/14/21 Unknown Rx Aspirin EC [Halfprin EC] 81 mg PO QDAY #30 tablet. 02/14/21 Unknown Rx AtorvaSTATin [Lipitor] 80 mg PO QHS #60 tablet 02/14/21 Unknown Rx Gabapentin 300 mg PO QPM #30 capsule 02/14/21 Unknown Rx ISOSORBIDE MONOnitrate [Imdur ER] 60 mg PO QDAY #30 tablet 02/14/21 Unknown Rx Insulin Glargine [Lantus VIAL] 15 units SUB-Q QHS #10 ml 02/14/21 Unknown Rx Metoprolol [Lopressor TAB] 50 mg PO TID #90 tablet 05/20/21 Unknown Rx Topiramate [Topamax] 50 mg PO DAILY #30 tablet 02/14/21 Unknown Rx levETIRAcetam [Keppra TAB] 500 mg PO BID #60 02/14/21 Unknown Rx ED Review of Systems ROS: Stated complaint: SOB BP ELEVATED Other details as noted in HPI Comment: All other systems reviewed and negative Constitutional: weakness. denies: chills, fever Eyes: denies: eye pain, vision change ENT: denies: ear pain, throat pain Respiratory: shortness of breath. denies: cough Cardiovascular: chest pain. denies: palpitations Gastrointestinal: nausea. denies: vomiting Genitourinary: denies: dysuria, discharge Musculoskeletal: arthralgia, myalgia. denies: joint swelling Skin: denies: rash, lesions Neurological: headache. denies: numbness Physical Exam - Physical Exam Vital Signs: Vital Signs 04/12/21 17:50 Temperature 99.6 F Pulse Rate 144 H Respiratory 18 Rate Blood Pressure 144/100 O2 Sat by Pulse 96 Oximetry Physical Exam: GENERAL: The patient is ill-appearing. HENT: Normocephalic. Atraumatic. Patient has moist mucous membranes. EYES: Extraocular motions are intact. Pupils equal reactive to light bilaterally. NECK: Supple. Trachea is midline. CHEST/LUNGS: Coarse breath sounds throughout the chest. There is tachypnea but no accessory muscle use. HEART/CARDIOVASCULAR: Irregular rhythm with moderate tachycardia. ABDOMEN: Abdomen is soft, nontender. Patient has normal bowel sounds. There is no abdominal distention. SKIN: Skin is warm and dry. NEURO: The patient is awake, alert, and cooperative. There is some chronic dysarthria. MUSCULOSKELETAL: There is no tenderness or deformity. ED Course Vital Signs 04/12/21 17:50 Temperature 99.6 F Pulse Rate 144 H Respiratory 18 Rate Blood Pressure 144/100 O2 Sat by Pulse 96 Oximetry ED Medical Decision Making - Lab Data Result diagrams: 04/12/21 20:41 04/12/21 20:41 Lab Results 04/12/21 04/12/21 04/12/21 Range/Units 20:41 20:41 20:41 WBC 6.7 (4.5-11.0) K/mm3 RBC 4.22 (3.65-5.03) M/mm3 Hgb 10.6 (10.1-14.3) gm/dl Hct 33.2 (30.3-42.9) % MCV 79 (79-97) fl MCH 25 L (28-32) pg MCHC 32 (30-34) % RDW 16.4 H (13.2-15.2) % Plt Count 180 (140-440) K/mm3 Lymph % (Auto) 16.3 (13.4-35.0) % Steele % (Auto) 9.5 H (0.0-7.3) % Eos % (Auto) 6.4 H (0.0-4.3) % Baso % (Auto) 0.6 (0.0-1.8) % Lymph # (Auto) 1.1 L (1.2-5.4) K/mm3 Steele # (Auto) 0.6 (0.0-0.8) K/mm3 Eos # (Auto) 0.4 (0.0-0.4) K/mm3 Baso # (Auto) 0.0 (0.0-0.1) K/mm3 Seg Neutrophils % 67.2 (40.0-70.0) % Seg Neutrophils # 4.5 (1.8-7.7) K/mm3 D-Dimer 405.34 H (0-234) ng/mlDDU Sodium 145 (137-145) mmol/L Potassium 3.6 (3.6-5.0) mmol/L Chloride 105.9 (98-107) mmol/L Carbon Dioxide 28 (22-30) mmol/L Anion Gap 15 mmol/L BUN 36 H (7-17) mg/dL Creatinine 1.5 H (0.6-1.2) mg/dL Estimated GFR 42 ml/min BUN/Creatinine Ratio 24 % Glucose 133 H (65-100) mg/dL Calcium 10.1 (8.4-10.2) mg/dL Total Bilirubin 0.50 (0.1-1.2) mg/dL AST 32 (5-40) units/L ALT 50 (7-56) units/L Alkaline Phosphatase 123 (35-129) units/L Troponin T 0.027 (0.00-0.029) ng/mL NT-Pro-B Natriuret Pep 2092 H (0-900) pg/mL Total Protein 7.4 (6.3-8.2) g/dL Albumin 4.3 (3.9-5) g/dL Albumin/Globulin Ratio 1.4 % TSH (0.270-4.200) mlU/mL 04/12/21 Range/Units 20:41 WBC (4.5-11.0) K/mm3 RBC (3.65-5.03) M/mm3 Hgb (10.1-14.3) gm/dl Hct (30.3-42.9) % MCV (79-97) fl MCH (28-32) pg MCHC (30-34) % RDW (13.2-15.2) % Plt Count (140-440) K/mm3 Lymph % (Auto) (13.4-35.0) % Steele % (Auto) (0.0-7.3) % Eos % (Auto) (0.0-4.3) % Baso % (Auto) (0.0-1.8) % Lymph # (Auto) (1.2-5.4) K/mm3 Steele # (Auto) (0.0-0.8) K/mm3 Eos # (Auto) (0.0-0.4) K/mm3 Baso # (Auto) (0.0-0.1) K/mm3 Seg Neutrophils % (40.0-70.0) % Seg Neutrophils # (1.8-7.7) K/mm3 D-Dimer (0-234) ng/mlDDU Sodium (137-145) mmol/L Potassium (3.6-5.0) mmol/L Chloride (98-107) mmol/L Carbon Dioxide (22-30) mmol/L Anion Gap mmol/L BUN (7-17) mg/dL Creatinine (0.6-1.2) mg/dL Estimated GFR ml/min BUN/Creatinine Ratio % Glucose (65-100) mg/dL Calcium (8.4-10.2) mg/dL Total Bilirubin (0.1-1.2) mg/dL AST (5-40) units/L ALT (7-56) units/L Alkaline Phosphatase (35-129) units/L Troponin T (0.00-0.029) ng/mL NT-Pro-B Natriuret Pep (0-900) pg/mL Total Protein (6.3-8.2) g/dL Albumin (3.9-5) g/dL Albumin/Globulin Ratio % TSH 2.320 (0.270-4.200) mlU/mL - EKG Data -: EKG Interpreted by Me - EKG Data When compared to previous EKG there are: changes noted (Previous EKG from January 2020 shows A. fib with RVR.) Interpretation: other (Atrial flutter with 2-1 AV block, rate of 140 bpm, normal axis. No ST elevation CO) - Radiology Data Radiology results: image reviewed interpreted by me: Chest x-ray shows some mild to moderate cardiomegaly, pulmonary vascular congestion and some mild interstitial edema. No widened mediastinum. No pneumothorax. - Medical Decision Making This patient presents with the complaint of "not feeling well" over the past 2 days that includes headache, chest pain, shortness of breath, nausea without vomiting. Initially the patient presents with a heart rate of about 145 bpm. It appeared regular and EKG showed atrial flutter with a 2-1 AV block. Shortly afterwards the patient went into atrial fibrillation with RVR. She is currently anticoagulated. Patient was given a dose of Cardizem which helped with rate control and it went down to about 90 to 110 bpm. Chest x-ray shows some pulmonary vascular congestion and mild interstitial edema. The patient's labs show some renal insufficiency with a GFR of about 40, and an elevated proBNP of about 2000. With the coarse breath sounds heard, chest x-ray findings, and elevated proBNP, the patient appears to have some CHF. She was given a dose of IV Lasix for diuresis. Patient will be admitted to the hospital for further evaluation and treatment and was accepted for patient by the hospitalist, Dr. Van. Critical Care Time: No Critical care attestation.: If time is entered above; I have spent that time in minutes in the direct care of this critically ill patient, excluding procedure time. ED Disposition Clinical Impression: Atrial fibrillation with RVR, Acute chest pain, Renal insufficiency CHF (congestive heart failure) Qualifiers: Heart failure type: unspecified Heart failure chronicity: unspecified Qualified Code(s): I50.9 - Heart failure, unspecified Disposition: OP ADMIT IP TO THIS HOSP Is pt being admited?: Yes Condition: Serious Time of Disposition: 23:28
--- NOTE | 2021-04-12 20:59 | XRay Report ---
CHEST 1 VIEW INDICATION / CLINICAL INFORMATION: CP. Chest pain FINDINGS: SUPPORT DEVICES: None. HEART / MEDIASTINUM: Enlarged. LUNGS / PLEURA: Trace interstitial edema Signer Name: Nate Hughes MD Signed: 04/12/2021 8:54 PM Workstation Name: [id number]
[2021-04-12 21:15] LABS: Basophils % (Auto) 0.6 % (0.0-1.8); Eosinophils # (Auto) 0.4 K/mm3 (0.0-0.4); Eosinophils % (Auto) 6.4 % (0.0-4.3); Hematocrit 33.2 % (30.3-42.9); Hemoglobin 10.6 gm/dl (10.1-14.3); Lymphocytes # (Auto) 1.1 K/mm3 (1.2-5.4); Lymphocytes % (Auto) 16.3 % (13.4-35.0); Mean Corpuscular HGB Conc 32 % (30-34); Mean Corpuscular Volume 79 fl (79-97); Monocytes # (Auto) 0.6 K/mm3 (0.0-0.8); Monocytes % (Auto) 9.5 % (0.0-7.3); Platelet Count 180 K/mm3 (140-440); Red Blood Count 4.22 M/mm3 (3.65-5.03); Red Cell Distribution Width 16.4 % (13.2-15.2)
[2021-04-12 21:20] LABS: Albumin 4.3 g/dL (3.9-5); Calcium 10.1 mg/dL (8.4-10.2)
[2021-04-12] MEDS ORDERED: FUROSEMIDE 20 MG/2 ML INJ IV ONE (21:30)
[2021-04-12] MEDS ORDERED: IPRATROPIUM/ALBUTEROL SULFATE 3 ML AMPUL.NEB IH ONE (21:30)
[2021-04-13] MEDS ORDERED: ALBUTEROL 2.5 MG/3 ML NEBU IH PRN (00:16)
[2021-04-13] MEDS ORDERED: MAGNESIUM HYDROXIDE (MOM) ORAL LIQD UDC PO PRN (00:16)
[2021-04-13] MEDS ORDERED: HYDROmorphone 1 MG/1 ML INJ IV PRN (00:16)
[2021-04-13] MEDS ORDERED: ALUM-MAG HYDROXIDE-SIMETHICONE 200-200-20MG/5ML ORAL LIQD 30 ML PO PRN (00:16)
[2021-04-13] MEDS ORDERED: MORPHINE 2 MG/1 ML INJ IV PRN ×2 (00:16)
[2021-04-13] MEDS ORDERED: NITROGLYCERIN 0.4 MG TAB SUBL SL PRN (00:16)
[2021-04-13] MEDS ORDERED: ONDANSETRON 4 MG/2 ML INJ IV PRN (00:16)
[2021-04-13] MEDS ORDERED: SENNOSIDES 8.6 MG TAB PO PRN (00:16)
[2021-04-13] MEDS ORDERED: ACETAMINOPHEN 325 MG TAB PO PRN (00:16)
--- NOTE | 2021-04-13 00:16 | History and Physical Report ---
History of Present Illness Date of examination: 04/12/21 Date of admission: 04/12/21 Chief complaint: CHF Shortness of breath Chest pain History of present illness: This is a 65-year-old -[place] female presents to the emergency department with multiple complaints including a generalized headache, chest pain, shortness of breath, generalized weakness, body aches, that has been going on for the past 2 days. She has a past medical history that includes cho lelithiasis, hydronephrosis, paroxysmal atrial fibrillation, 14 TIA, CVA x2 with residual right-sided weakness seizures, hypertension. The patient was recently admitted here in January of this year for a stroke work-up after having headaches and an unsteady gait. She follows up outpatient with a neurologist, Dr. Ribera. Patient's functional analyst is through [facility]. Other than her home medicatio ns she has not taken anything for symptoms prior to presentation today. ED work-up shows WBC 6.7, hemoglobin 10.6, platelets 180, D-dimer 405, sodium 145, potassium 3.6, creatinine 1.5, serum glucose 133, magnesium 1.8. BNP 2092. Reviewed chest x-ray done. Patient seen in ED at bedside. Generalized edema noted. Patient has history of CHF patient started on cardioprotective measures. I reviewed the lab medical record and vital signs. Patient reported history of total knee replacements bilaterally, carpel tunnel syndrome, partial hysterectomy, fibromyalgia, osteoarthritis, hypertension and diabetes. Past History Past Medical History: diabetes, heart failure, hypertension, hyperlipidemia, stroke Past Surgical History: hysterectomy, total knee replacement Social history: no significant social history, lives with family Family history: diabetes Medications and Allergies Allergies Allergy/AdvReac Type Severity Reaction Status Date / Time No Known Allergies Allergy Verified 07/12/20 05:04 Home Medications Medication Instructions Recorded Confirmed Last Taken Type Sertraline [Zoloft] 100 mg PO QDAY 07/13/20 04/13/21 Unknown History Apixaban [Eliquis] 5 mg PO Q12HR #60 tablet 02/14/21 04/13/21 Unknown Rx Aspirin EC [Halfprin EC] 81 mg PO QDAY #30 tablet. 02/14/21 04/13/21 Unknown Rx AtorvaSTATin [Lipitor] 80 mg PO QHS #60 tablet 02/14/21 04/13/21 Unknown Rx Gabapentin 300 mg PO QPM #30 capsule 02/14/21 04/13/21 Unknown Rx ISOSORBIDE MONOnitrate [Imdur ER] 60 mg PO QDAY #30 tablet 02/14/21 04/13/21 Unknown Rx Insulin Glargine [Lantus VIAL] 15 units SUB-Q QHS #10 ml 02/14/21 04/13/21 Unknown Rx Metoprolol [Lopressor TAB] 50 mg PO TID #90 tablet 02/14/21 04/13/21 Unknown Rx Topiramate [Topamax] 50 mg PO DAILY #30 tablet 02/14/21 04/13/21 Unknown Rx levETIRAcetam [Keppra TAB] 500 mg PO BID #60 02/14/21 04/13/21 Unknown Rx Review of Systems Constitutional: fatigue, weakness Ears, nose, mouth and throat: no epistaxis, no bleeding gums Cardiovascular: chest pain Respiratory: shortness of breath Gastrointestinal: no melena Rectal: no hemorrhoids Integumentary: no rash, no pruritis Hematologic/Lymphatic: no easy bruising, no easy bleeding Allergic/Immunologic: no urticaria Exam - Constitutional Vitals: Temp Pulse Resp BP Pulse Ox 99.6 F 152 H 17 158/97 96 04/12/21 17:50 04/12/21 22:22 04/12/21 21:56 04/12/21 22:22 04/12/21 17:50 General appearance: Present: no acute distress, well-nourished - EENT Eyes: Present: PERRL ENT: hearing intact, clear oral mucosa - Neck Neck: Present: supple, normal ROM - Respiratory Respiratory effort: normal Respiratory: bilateral: CTA - Cardiovascular Heart Sounds: Present: S1 & S2. Absent: rub, click - Extremities Extremities: pulses symmetrical, No edema Peripheral Pulses: within normal limits - Abdominal General gastrointestinal: Present: soft, non-tender, non-distended, normal bowel sounds Female genitourinary: Present: normal - Integumentary Integumentary: Present: clear, warm, dry - Musculoskeletal Musculoskeletal: gait normal, strength equal bilaterally - Psychiatric Psychiatric: appropriate mood/affect, intact judgment & insight - Neurologic Neurologic: CNII-XII intact, moves all extremities - Allied Health Allied health notes reviewed: nursing HEART Score - HEART Score Troponin: Troponin T 0.027 ng/mL (0.00-0.029) 04/12/21 20:41 Results - Labs CBC & Chem 7: 04/12/21 20:41 04/12/21 20:41 Labs: Abnormal lab results 04/12/21 04/12/21 04/12/21 Range/Units 20:41 20:41 20:41 MCH 25 L (28-32) pg RDW 16.4 H (13.2-15.2) % [place] % (Auto) 9.5 H (0.0-7.3) % Eos % (Auto) 6.4 H (0.0-4.3) % Lymph # (Auto) 1.1 L (1.2-5.4) K/mm3 D-Dimer 405.34 H (0-234) ng/mlDDU BUN 36 H (7-17) mg/dL Creatinine 1.5 H (0.6-1.2) mg/dL Glucose 133 H (65-100) mg/dL NT-Pro-B Natriuret Pep 2092 H (0-900) pg/mL Assessment and Plan - Patient Problems (1) CHF (congestive heart failure) Current Visit: Yes Status: Acute Plan to address problem: Acute on chronic CHF, elevated BNP greater than 2000 Antiplatelet, statin, and diuretics ordered Cardiology consult Echocardiogram follow-up with results. (2) Acute chest pain Current Visit: Yes Status: Acute Plan to address problem: Sublingual nitro 9 Echo cardiogram monitor cardiac enzyme (3) VAL (acute kidney injury) Current Visit: No Status: Acute Plan to address problem: Monitor kidney function Avoid nephrotoxic drugs including nonsteroidal anti-inflammatory agents (4) Elevated d-dimer Current Visit: No Status: Acute Plan to address problem: VQ scan Bilateral leg ultrasound (5) Hypertension Current Visit: No Status: Chronic Qualifiers: Hypertension type: essential hypertension Plan to address problem: Monitor blood pressure Resume home antihypertensive (6) DVT prophylaxis Current Visit: Yes Status: Acute Plan to address problem: Heparin (7) Full code status Current Visit: Yes Status: Acute Plan to address problem: Patient is a full code
[2021-04-13] MEDS ORDERED: traMADol 50 MG TAB PO PRN (00:33)
[2021-04-13] MEDS ORDERED: carvediloL 3.125 MG TAB PO SCH (01:00)
[2021-04-13] MEDS: POTASSIUM CHLORIDE ER 20 MEQ TAB PO SCH ×4 (01:13→17:39)
[2021-04-13] MEDS ORDERED: HEPARIN 5,000 UNIT/1 ML VIAL SUB-Q SCH (02:45)
[2021-04-13] MEDS: HYDROcodone/ACETAMINOPHEN 5-325 MG TAB PO PRN ×2 (03:24→21:17)
[2021-04-13] MEDS: FUROSEMIDE 40 MG/4 ML INJ IV SCH ×2 (05:54→17:31)
[2021-04-13] MEDS ORDERED: LISINOPRIL 10 MG TAB PO SCH (10:00)
[2021-04-13] MEDS ORDERED: ENOXAPARIN 30 MG/0.3 ML INJ SUB-Q SCH (10:00)
[2021-04-13] MEDS ORDERED: NON-FORMULARY EACH (Apixaban 5 MG Tablet) PO SCH (10:00)
[2021-04-13] MEDS ORDERED: carvediloL 12.5 MG TAB PO SCH (10:00)
[2021-04-13] MEDS ORDERED: NON-FORMULARY EACH (Topiramate [Topamax] 50 MG Tablet) PO SCH (10:00)
[2021-04-13] MEDS: SERTRALINE 100 MG TAB PO SCH (10:36)
[2021-04-13] MEDS: TOPIRAMATE TAB 25 MG TAB PO SCH (10:36)
[2021-04-13] MEDS: APIXABAN 5 MG TAB PO SCH ×2 (10:36→21:16)
[2021-04-13] MEDS: ASPIRIN 81 MG TAB CHEW PO SCH (10:36)
[2021-04-13] MEDS: levETIRAcetam 500 MG TAB PO SCH ×2 (10:36→21:16)
[2021-04-13] MEDS: oxyCODONE /ACETAMINOPHEN 5-325MG TAB PO PRN ×2 (10:42→17:30)
--- NOTE | 2021-04-13 12:19 | Progress Note ---
Assessment and Plan Assessment and plan: --Acute on chronic mild systolic CHF/ HFr EF[45 to 50%] Current Visit: Yes Status: Acute Acute on chronic CHF mild systolic, elevated BNP greater than 2000 Diuretics, beta-blockers, input output monitoring, low-sodium and fluid restriction EF 45 to 50% 2 months ago, cardiology consulted --Acute chest pain Current Visit: Yes Status: Acute Serial cardiac enzymes, continue current cardiac medications Follow cardio recommendations --A. fib with rapid ventricular rate; Current Visit: Yes Status: Acute Continue beta-blockers, anticoagulation with Eliquis Cardiology following --VAL (acute kidney injury)/vasomotor nephropathy Current Visit: No Status: Acute Monitor renal function, Avoid nephrotoxic Gentle hydration, nephrology consult if no improvement --Elevated d-dimer Current Visit: No Status: Acute Pending VQ scan; rule out PE Venous Doppler negative for DVT --Hypertension Current Visit: No Status: Chronic Well controlled , continue current antihypertensives As needed medications ,monitor blood pressure and adjust -- DVT prophylaxis Current Visit: Yes Status: Acute Continue Eliquis --Full code status Current Visit: Yes Status: Acute Patient is a full code Closely monitor the patient and adjust the management as needed Plan of care reviewed with the patient and her nurse Total time spent 35 minutes Advance care plan History Interval history: I have seen and examined the patient at the bedside this morning Patient's chart and medications reviewed Admitted with worsening shortness of breath Feels slightly better this morning Denies chest pain still has shortness of breath Vital signs noted Hospitalist Physical - Constitutional Vitals: Temp Pulse Resp BP Pulse Ox 98.5 F 115 H 20 146/92 93 04/13/21 04:03 04/13/21 10:00 04/13/21 04:03 04/13/21 04:03 04/13/21 04:03 General appearance: Present: no acute distress, well-nourished - EENT Eyes: Present: PERRL, EOM intact - Neck Neck: Present: supple, normal ROM - Respiratory Respiratory effort: normal Respiratory: bilateral: diminished, rales, negative: rhonchi, wheezing - Cardiovascular Rhythm: regular Heart Sounds: Present: S1 & S2 - Extremities Extremities: no ischemia, No edema - Abdominal General gastrointestinal: soft, non-tender, non-distended, normal bowel sounds - Integumentary Integumentary: Present: clear, warm - Psychiatric Psychiatric: appropriate mood/affect, cooperative - Neurologic Neurologic: CNII-XII intact, moves all extremities HEART Score - HEART Score Troponin: Troponin T 0.027 ng/mL (0.00-0.029) 04/13/21 01:03 Results - Labs CBC & Chem 7: 04/12/21 20:41 04/13/21 15:28 Labs: Laboratory Last Values WBC 6.7 K/mm3 (4.5-11.0) 04/12/21 20:41 RBC 4.22 M/mm3 (3.65-5.03) 04/12/21 20:41 Hgb 10.6 gm/dl (10.1-14.3) 04/12/21 20:41 Hct 33.2 % (30.3-42.9) 04/12/21 20:41 MCV 79 fl (79-97) 04/12/21 20:41 MCH 25 pg (28-32) L 04/12/21 20:41 MCHC 32 % (30-34) 04/12/21 20:41 RDW 16.4 % (13.2-15.2) H 04/12/21 20:41 Plt Count 180 K/mm3 (140-440) 04/12/21 20:41 Lymph % (Auto) 16.3 % (13.4-35.0) 04/12/21 20:41 [place] % (Auto) 9.5 % (0.0-7.3) H 04/12/21 20:41 Eos % (Auto) 6.4 % (0.0-4.3) H 04/12/21 20:41 Baso % (Auto) 0.6 % (0.0-1.8) 04/12/21 20:41 Lymph # (Auto) 1.1 K/mm3 (1.2-5.4) L 04/12/21 20:41 [place] # (Auto) 0.6 K/mm3 (0.0-0.8) 04/12/21 20:41 Eos # (Auto) 0.4 K/mm3 (0.0-0.4) 04/12/21 20:41 Baso # (Auto) 0.0 K/mm3 (0.0-0.1) 04/12/21 20:41 Seg Neutrophils % 67.2 % (40.0-70.0) 04/12/21 20:41 Seg Neutrophils # 4.5 K/mm3 (1.8-7.7) 04/12/21 20:41 D-Dimer 405.34 ng/mlDDU (0-234) H 04/12/21 20:41 Sodium 145 mmol/L (137-145) 04/12/21 20:41 Potassium 3.6 mmol/L (3.6-5.0) 04/12/21 20:41 Chloride 105.9 mmol/L (98-107) 04/12/21 20:41 Carbon Dioxide 28 mmol/L (22-30) 04/12/21 20:41 Anion Gap 15 mmol/L 04/12/21 20:41 BUN 36 mg/dL (7-17) H 04/12/21 20:41 Creatinine 1.5 mg/dL (0.6-1.2) H 04/12/21 20:41 Estimated GFR 42 ml/min 04/12/21 20:41 BUN/Creatinine Ratio 24 % 04/12/21 20:41 Glucose 133 mg/dL (65-100) H 04/12/21 20:41 POC Glucose 218 mg/dL (70-105) H 04/13/21 11:07 Calcium 10.1 mg/dL (8.4-10.2) 04/12/21 20:41 Magnesium 1.80 mg/dL (1.7-2.3) 04/13/21 01:03 Total Bilirubin 0.50 mg/dL (0.1-1.2) 04/12/21 20:41 AST 32 units/L (5-40) 04/12/21 20:41 ALT 50 units/L (7-56) 04/12/21 20:41 Alkaline Phosphatase 123 units/L (35-129) 04/12/21 20:41 Troponin T 0.027 ng/mL (0.00-0.029) 04/13/21 01:03 NT-Pro-B Natriuret Pep 2092 pg/mL (0-900) H 04/12/21 20:41 Total Protein 7.4 g/dL (6.3-8.2) 04/12/21 20:41 Albumin 4.3 g/dL (3.9-5) 04/12/21 20:41 Albumin/Globulin Ratio 1.4 % 04/12/21 20:41 TSH 2.320 mlU/mL (0.270-4.200) 04/12/21 20:41 Tejeda/IV: Voiding Method External Female Catheter Active Medications - Current Medications Current Medications: Generic Name Dose Route Start Last Admin Trade Name Freq PRN Reason Stop Dose Admin Acetaminophen 650 mg 04/13/21 00:16 Acetaminophen 325 Mg Tab PO Q4H PRN Pain MILD(1-3)/Fever >100.5/FERNANDEZ Hydrocodone Bitart/Acetaminophen 2 each 04/13/21 00:16 04/13/21 03:24 Hydrocodone/Acetaminophen 5-325 Mg Tab PO 2 each Q6H PRN Administration Pain, Moderate (4-6) Al Hydrox/Mg Hydrox/Simethicone 30 ml 04/13/21 00:16 Alum-Mag Hydroxide-Simethicone [phone]/5ml Oral Liqd 30 Ml PO Q4H PRN Indigestion Albuterol 2.5 mg 04/13/21 00:16 Albuterol 2.5 Mg/3 Ml Nebu IH Q3HRT PRN Shortness Of Breath Apixaban 5 mg 04/13/21 10:00 04/13/21 10:36 Apixaban 5 Mg Tab PO 5 mg Q12HR TIM Administration Aspirin 81 mg 04/13/21 10:00 04/13/21 10:36 Aspirin 81 Mg Tab Chew PO 81 mg QDAY TIM Administration Atorvastatin Calcium 80 mg 04/13/21 22:00 Atorvastatin 40 Mg Tab PO QHS TIM Carvedilol 12.5 mg 04/13/21 10:00 04/13/21 10:36 Carvedilol 12.5 Mg Tab PO 12.5 mg BID TIM Administration Furosemide 40 mg 04/13/21 06:00 04/13/21 05:54 Furosemide 40 Mg/4 Ml Inj IV 40 mg BID@0600,1800 TIM Administration Gabapentin 300 mg 04/13/21 18:00 Gabapentin 300 Mg Cap PO QPM [facility] Hydromorphone HCl 0.25 mg 04/13/21 00:16 Hydromorphone 1 Mg/1 Ml Inj IV Q5MIN PRN Chest Pain Insulin Glargine 15 units 04/13/21 22:00 Insulin Glargine 100 Units/Ml SUB-Q QHS TIM Isosorbide Mononitrate 60 mg 04/13/21 10:00 04/13/21 10:37 Isosorbide Mononitrate Er 60 Mg Tab PO 60 mg QDAY TIM Administration Levetiracetam 500 mg 04/13/21 10:00 04/13/21 10:36 Levetiracetam 500 Mg Tab PO 500 mg BID TIM Administration Lisinopril 10 mg 04/13/21 10:00 04/13/21 10:36 Lisinopril 10 Mg Tab PO 10 mg QDAY TIM Administration Magnesium Hydroxide 30 ml 04/13/21 00:16 Magnesium Hydroxide (Mom) Oral Liqd Udc PO Q4H PRN Constipation Morphine Sulfate 2 mg 04/13/21 00:16 Morphine 2 Mg/1 Ml Inj IV Q4H PRN Pain, Moderate (4-6) Morphine Sulfate 2 mg 04/13/21 00:16 Morphine 2 Mg/1 Ml Inj IV Q5MIN PRN Chest Pain unrelieved by NTG Nitroglycerin 0.4 mg 04/13/21 00:16 Nitroglycerin 0.4 Mg Tab Subl SL .Q5MIN PRN Chest Pain Ondansetron HCl 4 mg 04/13/21 00:16 Ondansetron 4 Mg/2 Ml Inj IV Q8H PRN Nausea And Vomiting Oxycodone/Acetaminophen 1 tab 04/13/21 00:16 04/13/21 10:42 Oxycodone /Acetaminophen 5-325mg Tab PO 1 tab Q6H PRN Administration Pain, Moderate (4-6) Potassium Chloride 20 meq 04/13/21 01:00 04/13/21 10:36 Potassium Chloride Er 20 Meq Tab PO 20 meq BID TIM Administration Senna 8.6 mg 04/13/21 00:16 Sennosides 8.6 Mg Tab PO Q12HR PRN Constipation Sertraline HCl 100 mg 04/13/21 10:00 04/13/21 10:36 Sertraline 100 Mg Tab PO 100 mg QDAY TIM Administration Sodium Chloride 10 ml 04/13/21 10:00 04/13/21 10:37 Sodium Chloride 0.9% 10 Ml Flush Syringe IV 10 ml BID TIM Administration Sodium Chloride 10 ml 04/13/21 00:16 04/13/21 05:54 Sodium Chloride 0.9% 10 Ml Flush Syringe IV 10 ml PRN PRN Administration LINE FLUSH Topiramate 50 mg 04/13/21 10:00 04/13/21 10:36 Topiramate Tab 25 Mg Tab PO 50 mg DAILY TIM Administration Tramadol HCl 50 mg 04/13/21 00:33 Tramadol 50 Mg Tab PO Q6H PRN Pain, Moderate (4-6) Trazodone HCl 50 mg 04/13/21 22:00 Trazodone 50 Mg Tab PO QHS TIM
--- NOTE | 2021-04-13 14:16 | Vascular Lab Report ---
DUPLEX DOPPLER LOWER EXTREMITY VEINS, BILATERAL INDICATION / CLINICAL INFORMATION: bilateral leg edema. TECHNIQUE: Duplex doppler imaging was performed through the veins of both lower extremities using venous vikram jessica and other maneuvers. COMPARISON: None available. FINDINGS: RIGHT COMMON FEMORAL VEIN: Negative. RIGHT FEMORAL VEIN: Negative. RIGHT POPLITEAL VEIN: Negative. RIGHT CALF VEINS: Negative. LEFT COMMON FEMORAL VEIN: Negative. LEFT FEMORAL VEIN: Negative. LEFT POPLITEAL VEIN: Negative. LEFT CALF VEINS: Negative. ADDITIONAL FINDINGS: None. IMPRESSION: 1. No sonographic evidence for DVT in either lower extremity. Signer Name: Dustin Orlando MD Signed: 04/13/2021 2:11 PM Workstation Name: [id number]
--- NOTE | 2021-04-13 15:13 | Consultation ---
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 She reports that she has SOB but denies any chest pain, palpitations, or swelling of extremities. Patient was seen in January for a stroke work up. Past History Past Medical History: atrial fib, diabetes, heart failure, hypertension, hyperlipidemia, stroke Past Surgical History: hysterectomy, total knee replacement Social history: no significant social history, lives with family Family history: diabetes Medications and Allergies Allergies Allergy/AdvReac Type Severity Reaction Status Date / Time No Known Allergies Allergy Verified 07/12/20 05:04 Home Medications Medication Instructions Recorded Confirmed Last Taken Type Sertraline [Zoloft] 100 mg PO QDAY 07/13/20 04/13/21 Unknown History Apixaban [Eliquis] 5 mg PO Q12HR #60 tablet 02/14/21 04/13/21 Unknown Rx Aspirin EC [Halfprin EC] 81 mg PO QDAY #30 tablet. 02/14/21 04/13/21 Unknown Rx AtorvaSTATin [Lipitor] 80 mg PO QHS #60 tablet 02/14/21 04/13/21 Unknown Rx Gabapentin 300 mg PO QPM #30 capsule 02/14/21 04/13/21 Unknown Rx ISOSORBIDE MONOnitrate [Imdur ER] 60 mg PO QDAY #30 tablet 02/14/21 04/13/21 Unknown Rx Insulin Glargine [Lantus VIAL] 15 units SUB-Q QHS #10 ml 02/14/21 04/13/21 Unknown Rx Metoprolol [Lopressor TAB] 50 mg PO TID #90 tablet 02/14/21 04/13/21 Unknown Rx Topiramate [Topamax] 50 mg PO DAILY #30 tablet 02/14/21 04/13/21 Unknown Rx levETIRAcetam [Keppra TAB] 500 mg PO BID #60 02/14/21 04/13/21 Unknown Rx Active Meds: Active Medications Acetaminophen (Acetaminophen 325 Mg Tab) 650 mg PO Q4H PRN PRN Reason: Pain MILD(1-3)/Fever >100.5/FERNANDEZ Hydrocodone Bitart/Acetaminophen (Hydrocodone/Acetaminophen 5-325 Mg Tab) 2 each PO Q6H PRN PRN Reason: Pain, Moderate (4-6) Last Admin: 04/13/21 03:24 Dose: 2 each Documented by: Al Hydrox/Mg Hydrox/Simethicone (Alum-Mag Hydroxide-Simethicone [phone]/5ml Oral Liqd 30 Ml) 30 ml PO Q4H PRN PRN Reason: Indigestion Albuterol (Albuterol 2.5 Mg/3 Ml Nebu) 2.5 mg IH Q3HRT PRN PRN Reason: Shortness Of Breath Apixaban (Apixaban 5 Mg Tab) 5 mg PO Q12HR [facility] Last Admin: 04/13/21 10:36 Dose: 5 mg Documented by: Aspirin (Aspirin 81 Mg Tab Chew) 81 mg PO QDAY [facility] Last Admin: 04/13/21 10:36 Dose: 81 mg Documented by: Atorvastatin Calcium (Atorvastatin 40 Mg Tab) 80 mg PO QHS [facility] Carvedilol (Carvedilol 12.5 Mg Tab) 12.5 mg PO BID [facility] Last Admin: 04/13/21 10:36 Dose: 12.5 mg Documented by: Furosemide (Furosemide 40 Mg/4 Ml Inj) 40 mg IV BID@0600,1800 [facility] Last Admin: 04/13/21 05:54 Dose: 40 mg Documented by: Gabapentin (Gabapentin 300 Mg Cap) 300 mg PO QPM [facility] Hydromorphone HCl (Hydromorphone 1 Mg/1 Ml Inj) 0.25 mg IV Q5MIN PRN PRN Reason: Chest Pain Insulin Glargine (Insulin Glargine 100 Units/Ml) 15 units SUB-Q QHS [facility] Isosorbide Mononitrate (Isosorbide Mononitrate Er 60 Mg Tab) 60 mg PO QDAY [facility] Last Admin: 04/13/21 10:37 Dose: 60 mg Documented by: Levetiracetam (Levetiracetam 500 Mg Tab) 500 mg PO BID [facility] Last Admin: 04/13/21 10:36 Dose: 500 mg Documented by: Lisinopril (Lisinopril 10 Mg Tab) 10 mg PO QDAY [facility] Last Admin: 04/13/21 10:36 Dose: 10 mg Documented by: Magnesium Hydroxide (Magnesium Hydroxide (Mom) Oral Liqd Udc) 30 ml PO Q4H PRN PRN Reason: Constipation Morphine Sulfate (Morphine 2 Mg/1 Ml Inj) 2 mg IV Q4H PRN PRN Reason: Pain, Moderate (4-6) Morphine Sulfate (Morphine 2 Mg/1 Ml Inj) 2 mg IV Q5MIN PRN PRN Reason: Chest Pain unrelieved by NTG Nitroglycerin (Nitroglycerin 0.4 Mg Tab Subl) 0.4 mg SL .Q5MIN PRN PRN Reason: Chest Pain Ondansetron HCl (Ondansetron 4 Mg/2 Ml Inj) 4 mg IV Q8H PRN PRN Reason: Nausea And Vomiting Oxycodone/Acetaminophen (Oxycodone /Acetaminophen 5-325mg Tab) 1 tab PO Q6H PRN PRN Reason: Pain, Moderate (4-6) Last Admin: 04/13/21 10:42 Dose: 1 tab Documented by: Potassium Chloride (Potassium Chloride Er 20 Meq Tab) 20 meq PO BID [facility] Last Admin: 04/13/21 10:36 Dose: 20 meq Documented by: Senna (Sennosides 8.6 Mg Tab) 8.6 mg PO Q12HR PRN PRN Reason: Constipation Sertraline HCl (Sertraline 100 Mg Tab) 100 mg PO QDAY [facility] Last Admin: 04/13/21 10:36 Dose: 100 mg Documented by: Sodium Chloride (Sodium Chloride 0.9% 10 Ml Flush Syringe) 10 ml IV BID [facility] Last Admin: 04/13/21 10:37 Dose: 10 ml Documented by: Sodium Chloride (Sodium Chloride 0.9% 10 Ml Flush Syringe) 10 ml IV PRN PRN PRN Reason: LINE FLUSH Last Admin: 04/13/21 05:54 Dose: 10 ml Documented by: Topiramate (Topiramate Tab 25 Mg Tab) 50 mg PO DAILY [facility] Last Admin: 04/13/21 10:36 Dose: 50 mg Documented by: Tramadol HCl (Tramadol 50 Mg Tab) 50 mg PO Q6H PRN PRN Reason: Pain, Moderate (4-6) Trazodone HCl (Trazodone 50 Mg Tab) 50 mg PO QHS [facility] Review of Systems All systems: negative Constitutional: no weight loss, no weight gain, no fever, no chills Ears, nose, mouth and throat: no ear pain, no ear discharge, no tinnitis, no decreased hearing Cardiovascular: no chest pain, no orthopnea, no palpitations Respiratory: shortness of breath, no cough, no cough with sputum, no excessive sputum, no hemoptysis Gastrointestinal: no abdominal pain, no nausea, no vomiting, no diarrhea Musculoskeletal: muscle weakness, gait dysfunction, no neck stiffness, no neck pain, no shooting arm pain Integumentary: no rash, no pruritis, no redness, no sores Neurological: weakness, lack of coordination, gait dysfunction, no head injury, no transient paralysis Psychiatric: no anxiety, no memory loss, no change in sleep habits Endocrine: no cold intolerance, no heat intolerance Hematologic/Lymphatic: no easy bruising, no easy bleeding Physical Examination Last Vital Signs Temp 98.5 F 04/13/21 08:35 Pulse 115 H 04/13/21 10:00 Resp 19 04/13/21 08:35 BP 104/78 04/13/21 08:35 Pulse Ox 97 04/13/21 08:35 General appearance: no acute distress HEENT: Positive: PERRL Neck: Positive: trachea midline Cardiac: Positive: irregularly irregular Lungs: Positive: Normal Breath Sounds Neuro: Positive: Grossly Intact Abdomen: Positive: Soft, Active Bowel Sounds Extremities: Present: normal, upper extr. pulses, lower extr. pulses Results 04/12/21 20:41 04/12/21 20:41 Cardiac Enzymes 04/12/21 Range/Units 20:41 AST 32 (5-40) units/L CBC 04/12/21 Range/Units 20:41 WBC 6.7 (4.5-11.0) K/mm3 RBC 4.22 (3.65-5.03) M/mm3 Hgb 10.6 (10.1-14.3) gm/dl Hct 33.2 (30.3-42.9) % Plt Count 180 (140-440) K/mm3 Lymph # (Auto) 1.1 L (1.2-5.4) K/mm3 [place] # (Auto) 0.6 (0.0-0.8) K/mm3 Eos # (Auto) 0.4 (0.0-0.4) K/mm3 Baso # (Auto) 0.0 (0.0-0.1) K/mm3 Comprehensive Metabolic Panel 04/12/21 Range/Units 20:41 Sodium 145 (137-145) mmol/L Potassium 3.6 (3.6-5.0) mmol/L Chloride 105.9 (98-107) mmol/L Carbon Dioxide 28 (22-30) mmol/L BUN 36 H (7-17) mg/dL Creatinine 1.5 H (0.6-1.2) mg/dL Glucose 133 H (65-100) mg/dL Calcium 10.1 (8.4-10.2) mg/dL AST 32 (5-40) units/L ALT 50 (7-56) units/L Alkaline Phosphatase 123 (35-129) units/L Total Protein 7.4 (6.3-8.2) g/dL Albumin 4.3 (3.9-5) g/dL - Imaging and Cardiology EKG: report reviewed, image reviewed EKG interpretations - Telemetry EKG Rhythm: Atrial Fibrillation - EKG Supraventricular dysrhythmia: atrial fibrillation Assessment and Plan AFIB w/ RVR * Stop patient Coreg 3.125mg * Switch patient to metoprolol XL BID 50mg * check Mg in the AM and replace potassium * Patient anticoagulated on Eliquis HFrEF * report reviewed (02/05/2021 - negative bubble study, severe concentric LVH, EF 45-50%, trace pericardial effusion), other (06/2020 - mild-mod concentric LVH, EF 55-60%, impaired LV relaxation, trace AR) * Agree with Lasix 40mg IV BID CAD * Continue Imdur 60mg, Aspirin 81mg, HTN * Optimize hypertensive regimen. Stop lisinopril due to patients VAL. Patient seen in conjunction with Dr. Garrido who agrees with plan. We will continue to follow. - Patient Problems (1) Acute chest pain Current Visit: Yes Status: Acute (2) Atrial fibrillation with RVR Current Visit: Yes Status: Acute (3) CHF (congestive heart failure) Current Visit: Yes Status: Acute (4) Elevated d-dimer Current Visit: No Status: Acute (5) Coronary artery disease Current Visit: No Status: Chronic Qualifiers: Coronary Disease-Associated Artery/Lesion type: [place] artery [place] vs. transplanted heart: [place] heart
[2021-04-13 16:27] LABS: Calcium 8.9 mg/dL (8.4-10.2)
[2021-04-13] MEDS: GABAPENTIN 300 MG CAP PO SCH (17:31)
[2021-04-13] MEDS: traZODone 50 MG TAB PO SCH (21:15)
[2021-04-13] MEDS: METOPROLOL SUCCINATE XL 50 MG TAB PO SCH (21:16)
[2021-04-14] MEDS: FUROSEMIDE 40 MG/4 ML INJ IV SCH (06:15)
[2021-04-14] MEDS: INSULIN GLARGINE 100 UNITS/ML SUB-Q SCH ×2 (06:19→22:37)
[2021-04-14 07:09] LABS: Albumin 3.5 g/dL (3.9-5); Calcium 9.3 mg/dL (8.4-10.2)
--- NOTE | 2021-04-14 10:30 | Progress Note ---
Assessment and Plan AFIB w/ RVR * Continue metoprolol XL BID 50mg * Patients Mg was 1.8 this AM. Continue potassium replacement * Patient anticoagulated on Eliquis HFrEF * Patient UOP= -750 * report reviewed (02/05/2021 - negative bubble study, severe concentric LVH, EF 45-50%, trace pericardial effusion), other (06/2020 - mild-mod concentric LVH, EF 55-60%, impaired LV relaxation, trace AR) * Switch patient from Lasix 40mg IV BID to Lasix 40mg PO QD in the setting of patients increased creatinine from 1.6-1.9. CAD * Continue Imdur 60mg, Aspirin 81mg,Atorvastatin PO QHS HTN * Optimize hypertensive regimen. Continue to hold lisinopril due to patients VAL and increased creatinine. Signed by Marquez Castro NP Patient seen in conjunction with Dr. Garrido who agrees with plan. We will continue to follow. - Patient Problems (1) Acute chest pain Current Visit: Yes Status: Acute (2) Atrial fibrillation with RVR Current Visit: Yes Status: Acute (3) CHF (congestive heart failure) Current Visit: Yes Status: Acute (4) Elevated d-dimer Current Visit: No Status: Acute (5) Coronary artery disease Current Visit: No Status: Chronic Qualifiers: Coronary Disease-Associated Artery/Lesion type: [place] artery [place] vs. transplanted heart: [place] heart Subjective Date of service: 04/14/21 Principal diagnosis: HFrEF Interval history: Patient was resting in bed comfortably with no complaints Afib 90s on monitor Objective Last Vital Signs Temp 98.4 F 04/14/21 10:24 Pulse 18 L 04/14/21 10:24 Resp 18 04/14/21 10:24 BP 122/74 04/14/21 10:24 Pulse Ox 96 04/14/21 10:24 - Physical Examination General: Appears Well, No Apparent Distress HEENT: Positive: PERRL Neck: Positive: trachea midline Cardiac: Positive: irregularly irregular Neuro: Positive: Grossly Intact Abdomen: Positive: Soft, Active Bowel Sounds Extremities: Present: normal, upper extr. pulses, lower extr. pulses - Labs and Meds Cardiac Enzymes 04/14/21 Range/Units 05:08 AST 15 (5-40) units/L Comprehensive Metabolic Panel 04/13/21 04/14/21 Range/Units 15:28 05:08 Sodium 142 144 (137-145) mmol/L Potassium 3.7 3.6 (3.6-5.0) mmol/L Chloride 102.7 104.1 (98-107) mmol/L Carbon Dioxide 29 35 H (22-30) mmol/L BUN 35 H 41 H (7-17) mg/dL Creatinine 1.6 H 1.9 H (0.6-1.2) mg/dL Glucose 161 H 177 H (65-100) mg/dL Calcium 8.9 9.3 (8.4-10.2) mg/dL AST 15 (5-40) units/L ALT 27 (7-56) units/L Alkaline Phosphatase 92 (35-129) units/L Total Protein 6.0 L (6.3-8.2) g/dL Albumin 3.5 L (3.9-5) g/dL - Imaging and Cardiology EKG: report reviewed, image reviewed Echo: report reviewed - Telemetry EKG Rhythm: Atrial Fibrillation - EKG Supraventricular dysrhythmia: atrial fibrillation
[2021-04-14] MEDS: METOPROLOL SUCCINATE XL 50 MG TAB PO SCH ×2 (10:45→22:48)
[2021-04-14] MEDS: levETIRAcetam 500 MG TAB PO SCH ×2 (10:45→22:37)
[2021-04-14] MEDS: SERTRALINE 100 MG TAB PO SCH (10:45)
[2021-04-14] MEDS: APIXABAN 5 MG TAB PO SCH ×2 (10:45→22:37)
[2021-04-14] MEDS: POTASSIUM CHLORIDE ER 20 MEQ TAB PO SCH (10:45)
[2021-04-14] MEDS: ASPIRIN 81 MG TAB CHEW PO SCH (10:45)
[2021-04-14] MEDS: TOPIRAMATE TAB 25 MG TAB PO SCH (10:45)
--- NOTE | 2021-04-14 11:24 | Progress Note ---
Assessment and Plan Assessment and plan: --VAL (acute kidney injury)/vasomotor nephropathy Current Visit: No Status: Acute Worsening renal function probably due to overdiuresis Decrease Lasix from 40 twice daily to once a day dose monitor renal function, Avoid nephrotoxic Gentle hydration, nephrology consult if no improvement --Acute on chronic mild systolic CHF/ HFr EF[45 to 50%] Current Visit: Yes Status: Acute Acute on chronic CHF mild systolic, elevated BNP greater than 2000 Diuretics, beta-blockers, input output monitoring, low-sodium and fluid restriction EF 45 to 50% 2 months ago, cardiology consulted --Acute chest pain Current Visit: Yes Status: Acute Serial cardiac enzymes, continue current cardiac medications Follow cardio recommendations --A. fib with rapid ventricular rate; Current Visit: Yes Status: Acute Continue beta-blockers, anticoagulation with Eliquis Cardiology following --Elevated d-dimer Current Visit: No Status: Acute Pending VQ scan; rule out PE Venous Doppler negative for DVT --History of seizure disorder; Current Visit: No Status: Chronic Seizure precautions, continue antiepileptic medications Do not drive until cleared by PMD/neurologist --Obesity; BMI 38.2 Current Visit: No Status: Chronic Partly due to congestive heart failure patient needs diet modification exercise as tolerated and weight reduction When medically stable --Hypertension Current Visit: No Status: Chronic Well controlled , continue current antihypertensives As needed medications ,monitor blood pressure and adjust -- DVT prophylaxis Current Visit: Yes Status: Acute Continue Eliquis --Full code status Current Visit: Yes Status: Acute Patient is a full code Closely monitor the patient and adjust the management as needed Plan of care reviewed with the patient and her nurse History Interval history: I have seen and examined the patient at the bedside Patient's chart and medications reviewed Patient feels slightly better denies chest pain or shortness of breath No new overnight events reported by the nursing staff Worsening renal function will decrease Lasix Vital signs noted Hospitalist Physical - Constitutional Vitals: Temp Pulse Resp BP Pulse Ox 98.4 F 18 L 18 122/74 96 04/14/21 10:24 04/14/21 10:24 04/14/21 10:24 04/14/21 10:24 04/14/21 10:24 General appearance: Present: no acute distress, well-nourished - EENT Eyes: Present: PERRL, EOM intact - Neck Neck: Present: supple, normal ROM - Respiratory Respiratory effort: normal Respiratory: bilateral: diminished, rales, negative: rhonchi, wheezing - Cardiovascular Rhythm: regular Heart Sounds: Present: S1 & S2 - Extremities Extremities: no ischemia Extremity abnormal: edema - Abdominal General gastrointestinal: soft, non-tender, non-distended, normal bowel sounds - Integumentary Integumentary: Present: clear, warm - Psychiatric Psychiatric: appropriate mood/affect, cooperative - Neurologic Neurologic: moves all extremities HEART Score - HEART Score Troponin: Troponin T 0.027 ng/mL (0.00-0.029) 04/13/21 01:03 Results - Labs CBC & Chem 7: 04/12/21 20:41 04/14/21 05:08 Labs: Laboratory Last Values WBC 6.7 K/mm3 (4.5-11.0) 04/12/21 20:41 RBC 4.22 M/mm3 (3.65-5.03) 04/12/21 20:41 Hgb 10.6 gm/dl (10.1-14.3) 04/12/21 20:41 Hct 33.2 % (30.3-42.9) 04/12/21 20:41 MCV 79 fl (79-97) 04/12/21 20:41 MCH 25 pg (28-32) L 04/12/21 20:41 MCHC 32 % (30-34) 04/12/21 20:41 RDW 16.4 % (13.2-15.2) H 04/12/21 20:41 Plt Count 180 K/mm3 (140-440) 04/12/21 20:41 Lymph % (Auto) 16.3 % (13.4-35.0) 04/12/21 20:41 [place] % (Auto) 9.5 % (0.0-7.3) H 04/12/21 20:41 Eos % (Auto) 6.4 % (0.0-4.3) H 04/12/21 20:41 Baso % (Auto) 0.6 % (0.0-1.8) 04/12/21 20:41 Lymph # (Auto) 1.1 K/mm3 (1.2-5.4) L 04/12/21 20:41 [place] # (Auto) 0.6 K/mm3 (0.0-0.8) 04/12/21 20:41 Eos # (Auto) 0.4 K/mm3 (0.0-0.4) 04/12/21 20:41 Baso # (Auto) 0.0 K/mm3 (0.0-0.1) 04/12/21 20:41 Seg Neutrophils % 67.2 % (40.0-70.0) 04/12/21 20:41 Seg Neutrophils # 4.5 K/mm3 (1.8-7.7) 04/12/21 20:41 D-Dimer 405.34 ng/mlDDU (0-234) H 04/12/21 20:41 Sodium 144 mmol/L (137-145) 04/14/21 05:08 Potassium 3.6 mmol/L (3.6-5.0) 04/14/21 05:08 Chloride 104.1 mmol/L (98-107) 04/14/21 05:08 Carbon Dioxide 35 mmol/L (22-30) H 04/14/21 05:08 Anion Gap 9 mmol/L 04/14/21 05:08 BUN 41 mg/dL (7-17) H 04/14/21 05:08 Creatinine 1.9 mg/dL (0.6-1.2) H 04/14/21 05:08 Estimated GFR 32 ml/min 04/14/21 05:08 BUN/Creatinine Ratio 22 % 04/14/21 05:08 Glucose 177 mg/dL (65-100) H 04/14/21 05:08 POC Glucose 218 mg/dL (70-105) H 04/13/21 11:07 Calcium 9.3 mg/dL (8.4-10.2) 04/14/21 05:08 Magnesium 1.80 mg/dL (1.7-2.3) 04/14/21 05:08 Total Bilirubin 0.30 mg/dL (0.1-1.2) 04/14/21 05:08 AST 15 units/L (5-40) 04/14/21 05:08 ALT 27 units/L (7-56) 04/14/21 05:08 Alkaline Phosphatase 92 units/L (35-129) 04/14/21 05:08 Troponin T 0.027 ng/mL (0.00-0.029) 04/13/21 01:03 NT-Pro-B Natriuret Pep 2092 pg/mL (0-900) H 04/12/21 20:41 Total Protein 6.0 g/dL (6.3-8.2) L 04/14/21 05:08 Albumin 3.5 g/dL (3.9-5) L 04/14/21 05:08 Albumin/Globulin Ratio 1.4 % 04/14/21 05:08 TSH 2.320 mlU/mL (0.270-4.200) 04/12/21 20:41 Tejeda/IV: Voiding Method External Female Catheter Active Medications - Current Medications Current Medications: Generic Name Dose Route Start Last Admin Trade Name Freq PRN Reason Stop Dose Admin Acetaminophen 650 mg 04/13/21 00:16 Acetaminophen 325 Mg Tab PO Q4H PRN Pain MILD(1-3)/Fever >100.5/FERNANDEZ Hydrocodone Bitart/Acetaminophen 2 each 04/13/21 00:16 04/13/21 21:17 Hydrocodone/Acetaminophen 5-325 Mg Tab PO 2 each Q6H PRN Administration Pain, Moderate (4-6) Al Hydrox/Mg Hydrox/Simethicone 30 ml 04/13/21 00:16 Alum-Mag Hydroxide-Simethicone [id number]/5ml Oral Liqd 30 Ml PO Q4H PRN Indigestion Albuterol 2.5 mg 04/13/21 00:16 Albuterol 2.5 Mg/3 Ml Nebu IH Q3HRT PRN Shortness Of Breath Apixaban 5 mg 04/13/21 10:00 04/14/21 10:45 Apixaban 5 Mg Tab PO 5 mg Q12HR TIM Administration Aspirin 81 mg 04/13/21 10:00 04/14/21 10:45 Aspirin 81 Mg Tab Chew PO 81 mg QDAY TIM Administration Atorvastatin Calcium 80 mg 04/13/21 22:00 04/13/21 21:16 Atorvastatin 40 Mg Tab PO 80 mg QHS TIM Administration Furosemide 40 mg 04/15/21 10:00 Furosemide 40 Mg Tab PO QDAY TIM Gabapentin 300 mg 04/13/21 18:00 04/13/21 17:31 Gabapentin 300 Mg Cap PO 300 mg QPM TIM Administration Hydromorphone HCl 0.25 mg 04/13/21 00:16 Hydromorphone 1 Mg/1 Ml Inj IV Q5MIN PRN Chest Pain Insulin Glargine 15 units 04/13/21 22:00 04/14/21 06:19 Insulin Glargine 100 Units/Ml SUB-Q Not Given QHS TIM Isosorbide Mononitrate 60 mg 04/13/21 10:00 04/14/21 10:45 Isosorbide Mononitrate Er 60 Mg Tab PO 60 mg QDAY TIM Administration Levetiracetam 500 mg 04/13/21 10:00 04/14/21 10:45 Levetiracetam 500 Mg Tab PO 500 mg BID TIM Administration Magnesium Hydroxide 30 ml 04/13/21 00:16 Magnesium Hydroxide (Mom) Oral Liqd Udc PO Q4H PRN Constipation Metoprolol Succinate 50 mg 04/13/21 22:00 04/14/21 10:45 Metoprolol Succinate Xl 50 Mg Tab PO 50 mg BID TIM Administration Morphine Sulfate 2 mg 04/13/21 00:16 Morphine 2 Mg/1 Ml Inj IV Q4H PRN Pain, Moderate (4-6) Morphine Sulfate 2 mg 04/13/21 00:16 Morphine 2 Mg/1 Ml Inj IV Q5MIN PRN Chest Pain unrelieved by NTG Nitroglycerin 0.4 mg 04/13/21 00:16 Nitroglycerin 0.4 Mg Tab Subl SL .Q5MIN PRN Chest Pain Ondansetron HCl 4 mg 04/13/21 00:16 Ondansetron 4 Mg/2 Ml Inj IV Q8H PRN Nausea And Vomiting Oxycodone/Acetaminophen 1 tab 04/13/21 00:16 04/13/21 17:30 Oxycodone /Acetaminophen 5-325mg Tab PO 1 tab Q6H PRN Administration Pain, Moderate (4-6) Potassium Chloride 20 meq 04/13/21 18:00 04/14/21 10:45 Potassium Chloride Er 20 Meq Tab PO 20 meq QDAY TIM Administration Senna 8.6 mg 04/13/21 00:16 Sennosides 8.6 Mg Tab PO Q12HR PRN Constipation Sertraline HCl 100 mg 04/13/21 10:00 04/14/21 10:45 Sertraline 100 Mg Tab PO 100 mg QDAY TIM Administration Sodium Chloride 10 ml 04/13/21 10:00 04/14/21 10:46 Sodium Chloride 0.9% 10 Ml Flush Syringe IV 10 ml BID TIM Administration Sodium Chloride 10 ml 04/13/21 00:16 04/14/21 06:18 Sodium Chloride 0.9% 10 Ml Flush Syringe IV 10 ml PRN PRN Administration LINE FLUSH Topiramate 50 mg 04/13/21 10:00 04/14/21 10:45 Topiramate Tab 25 Mg Tab PO 50 mg DAILY TIM Administration Tramadol HCl 50 mg 04/13/21 00:33 Tramadol 50 Mg Tab PO Q6H PRN Pain, Moderate (4-6) Trazodone HCl 50 mg 04/13/21 22:00 04/13/21 21:15 Trazodone 50 Mg Tab PO 50 mg QHS TIM Administration
--- NOTE | 2021-04-14 17:11 | Nuclear Medicine Report ---
Nuclear medicine lung perfusion scan INDICATION: Elevated d-dimer. Dyspnea and chest pain TECHNIQUE: Limited exam secondary to patient positioning. A total of 5.5 mCi of technetium 99 MAA inj ected IV per protocol. No ventilatory images obtained COMPARISON: 04/12/2021 FINDINGS: There are small peripheral perfusion defects within the base of the left lung and a tiny downs spected perfusion abnormality within the left upper lung. IMPRESSION: Several nonspecific perfusion abnormalities of the left lung, as above. Signer Name: Nate Hughes MD Signed: 04/14/2021 5:06 PM Workstation Name: [id number]
[2021-04-14] MEDS: GABAPENTIN 300 MG CAP PO SCH (17:43)
[2021-04-14] MEDS: traZODone 50 MG TAB PO SCH (22:37)
[2021-04-14] MEDS: oxyCODONE /ACETAMINOPHEN 5-325MG TAB PO PRN (22:49)
[2021-04-15 04:58] LABS: Calcium 8.8 mg/dL (8.4-10.2)
[2021-04-15] MEDS: ASPIRIN 81 MG TAB CHEW PO SCH (09:09)
[2021-04-15] MEDS: METOPROLOL SUCCINATE XL 50 MG TAB PO SCH (09:09)
[2021-04-15] MEDS: APIXABAN 5 MG TAB PO SCH (09:09)
[2021-04-15] MEDS: POTASSIUM CHLORIDE ER 20 MEQ TAB PO SCH (09:09)
[2021-04-15] MEDS: TOPIRAMATE TAB 25 MG TAB PO SCH (09:09)
[2021-04-15] MEDS: levETIRAcetam 500 MG TAB PO SCH (09:10)
[2021-04-15] MEDS: SERTRALINE 100 MG TAB PO SCH (09:10)
--- NOTE | 2021-04-15 09:19 | Progress Note ---
Assessment and Plan Assessment and plan: --Hypertension; Current Visit: No Status: Acute Pressures are high this morning 180 systolic However blood pressures reasonable levels last 24 hours We will check after morning medications and optimize as needed --VAL on CKD 3 (acute kidney injury)/vasomotor nephropathy Current Visit: No Status: Acute Creatinine trending down, today 1.7[closer to baseline]. 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 x1 dose Monitor electrolytes --Acute on chronic mild systolic CHF/ HFr EF[45 to 50%] Current Visit: Yes Status: Acute Acute on chronic CHF mild systolic, elevated BNP greater than 2000 Diuretics, beta-blockers, input output monitoring, low-sodium and fluid restriction EF 45 to 50% 2 months ago, cardiology consulted --Acute chest pain Current Visit: Yes Status: Acute Serial cardiac enzymes, continue current cardiac medications Follow cardio recommendations --A. fib with rapid ventricular rate; Current Visit: Yes Status: Acute Continue beta-blockers, anticoagulation with Eliquis Cardiology following --Elevated d-dimer Current Visit: No Status: Acute Pending VQ scan; rule out PE Venous Doppler negative for DVT --History of seizure disorder; Current Visit: No Status: Chronic Seizure precautions, continue antiepileptic medications Do not drive until cleared by PMD/neurologist --Obesity; BMI 38.2 Current Visit: No Status: Chronic Partly due to congestive heart failure patient needs diet modification exercise as tolerated and weight reduction When medically stable --Hypertension Current Visit: No Status: Chronic Well controlled , continue current antihypertensives As needed medications ,monitor blood pressure and adjust -- DVT prophylaxis Current Visit: Yes Status: Acute Continue Eliquis --Full code status Current Visit: Yes Status: Acute Patient is a full code Closely monitor the patient and adjust the management as needed Plan of care reviewed with the patient and her nurse Hospitalist Physical - Constitutional Vitals: Temp Pulse Resp BP Pulse Ox 97.5 F L 80 19 185/93 92 04/15/21 07:48 04/15/21 09:09 04/15/21 07:48 04/15/21 09:09 04/15/21 07:48 General appearance: Present: no acute distress, well-nourished HEART Score - HEART Score Troponin: Troponin T 0.027 ng/mL (0.00-0.029) 04/13/21 01:03 Results - Labs CBC & Chem 7: 04/12/21 20:41 04/15/21 04:04 Labs: Laboratory Last Values WBC 6.7 K/mm3 (4.5-11.0) 04/12/21 20:41 RBC 4.22 M/mm3 (3.65-5.03) 04/12/21 20:41 Hgb 10.6 gm/dl (10.1-14.3) 04/12/21 20:41 Hct 33.2 % (30.3-42.9) 04/12/21 20:41 MCV 79 fl (79-97) 04/12/21 20:41 MCH 25 pg (28-32) L 04/12/21 20:41 MCHC 32 % (30-34) 04/12/21 20:41 RDW 16.4 % (13.2-15.2) H 04/12/21 20:41 Plt Count 180 K/mm3 (140-440) 04/12/21 20:41 Lymph % (Auto) 16.3 % (13.4-35.0) 04/12/21 20:41 [place] % (Auto) 9.5 % (0.0-7.3) H 04/12/21 20:41 Eos % (Auto) 6.4 % (0.0-4.3) H 04/12/21 20:41 Baso % (Auto) 0.6 % (0.0-1.8) 04/12/21 20:41 Lymph # (Auto) 1.1 K/mm3 (1.2-5.4) L 04/12/21 20:41 [place] # (Auto) 0.6 K/mm3 (0.0-0.8) 04/12/21 20:41 Eos # (Auto) 0.4 K/mm3 (0.0-0.4) 04/12/21 20:41 Baso # (Auto) 0.0 K/mm3 (0.0-0.1) 04/12/21 20:41 Seg Neutrophils % 67.2 % (40.0-70.0) 04/12/21 20:41 Seg Neutrophils # 4.5 K/mm3 (1.8-7.7) 04/12/21 20:41 D-Dimer 405.34 ng/mlDDU (0-234) H 04/12/21 20:41 Sodium 144 mmol/L (137-145) 04/15/21 04:04 Potassium 3.4 mmol/L (3.6-5.0) L 04/15/21 04:04 Chloride 104.4 mmol/L (98-107) 04/15/21 04:04 Carbon Dioxide 28 mmol/L (22-30) D 04/15/21 04:04 Anion Gap 15 mmol/L 04/15/21 04:04 BUN 43 mg/dL (7-17) H 04/15/21 04:04 Creatinine 1.7 mg/dL (0.6-1.2) H 04/15/21 04:04 Estimated GFR 37 ml/min 04/15/21 04:04 BUN/Creatinine Ratio 25 % 04/15/21 04:04 Glucose 189 mg/dL (65-100) H 04/15/21 04:04 POC Glucose 218 mg/dL (70-105) H 04/13/21 11:07 Calcium 8.8 mg/dL (8.4-10.2) 04/15/21 04:04 Phosphorus 3.30 mg/dL (2.5-4.5) 04/15/21 04:04 Magnesium 1.70 mg/dL (1.7-2.3) 04/15/21 04:04 Total Bilirubin 0.30 mg/dL (0.1-1.2) 04/14/21 05:08 AST 15 units/L (5-40) 04/14/21 05:08 ALT 27 units/L (7-56) 04/14/21 05:08 Alkaline Phosphatase 92 units/L (35-129) 04/14/21 05:08 Troponin T 0.027 ng/mL (0.00-0.029) 04/13/21 01:03 NT-Pro-B Natriuret Pep 2092 pg/mL (0-900) H 04/12/21 20:41 Total Protein 6.0 g/dL (6.3-8.2) L 04/14/21 05:08 Albumin 3.5 g/dL (3.9-5) L 04/14/21 05:08 Albumin/Globulin Ratio 1.4 % 04/14/21 05:08 TSH 2.320 mlU/mL (0.270-4.200) 04/12/21 20:41 Tejeda/IV: Voiding Method Toilet Active Medications - Current Medications Current Medications: Generic Name Dose Route Start Last Admin Trade Name Freq PRN Reason Stop Dose Admin Acetaminophen 650 mg 04/13/21 00:16 Acetaminophen 325 Mg Tab PO Q4H PRN Pain MILD(1-3)/Fever >100.5/FERNANDEZ Hydrocodone Bitart/Acetaminophen 2 each 04/13/21 00:16 04/13/21 21:17 Hydrocodone/Acetaminophen 5-325 Mg Tab PO 2 each Q6H PRN Administration Pain, Moderate (4-6) Al Hydrox/Mg Hydrox/Simethicone 30 ml 04/13/21 00:16 Alum-Mag Hydroxide-Simethicone [id number]/5ml Oral Liqd 30 Ml PO Q4H PRN Indigestion Albuterol 2.5 mg 04/13/21 00:16 Albuterol 2.5 Mg/3 Ml Nebu IH Q3HRT PRN Shortness Of Breath Apixaban 5 mg 04/13/21 10:00 04/15/21 09:09 Apixaban 5 Mg Tab PO 5 mg Q12HR TIM Administration Aspirin 81 mg 04/13/21 10:00 04/15/21 09:09 Aspirin 81 Mg Tab Chew PO 81 mg QDAY TIM Administration Atorvastatin Calcium 80 mg 04/13/21 22:00 04/14/21 22:38 Atorvastatin 40 Mg Tab PO 80 mg QHS TIM Administration Furosemide 40 mg 04/15/21 10:00 04/15/21 09:09 Furosemide 40 Mg Tab PO 40 mg QDAY TIM Administration Gabapentin 300 mg 04/13/21 18:00 04/14/21 17:43 Gabapentin 300 Mg Cap PO 300 mg QPM TIM Administration Hydralazine HCl 10 mg 04/15/21 09:14 Hydralazine 20 Mg/1 Ml Inj IV Q4HR PRN Hypertension Hydromorphone HCl 0.25 mg 04/13/21 00:16 Hydromorphone 1 Mg/1 Ml Inj IV Q5MIN PRN Chest Pain Insulin Glargine 15 units 04/13/21 22:00 07/18/21 22:37 Insulin Glargine 100 Units/Ml SUB-Q 15 units QHS TIM Administration Isosorbide Mononitrate 60 mg 04/13/21 10:00 04/15/21 09:09 Isosorbide Mononitrate Er 60 Mg Tab PO 60 mg QDAY TIM Administration Levetiracetam 500 mg 04/13/21 10:00 04/15/21 09:10 Levetiracetam 500 Mg Tab PO 500 mg BID TIM Administration Magnesium Hydroxide 30 ml 04/13/21 00:16 Magnesium Hydroxide (Mom) Oral Liqd Udc PO Q4H PRN Constipation Metoprolol Succinate 50 mg 04/13/21 22:00 04/15/21 09:09 Metoprolol Succinate Xl 50 Mg Tab PO 50 mg BID TIM Administration Morphine Sulfate 2 mg 04/13/21 00:16 Morphine 2 Mg/1 Ml Inj IV Q4H PRN Pain, Moderate (4-6) Morphine Sulfate 2 mg 04/13/21 00:16 Morphine 2 Mg/1 Ml Inj IV Q5MIN PRN Chest Pain unrelieved by NTG Nitroglycerin 0.4 mg 04/13/21 00:16 Nitroglycerin 0.4 Mg Tab Subl SL .Q5MIN PRN Chest Pain Ondansetron HCl 4 mg 04/13/21 00:16 Ondansetron 4 Mg/2 Ml Inj IV Q8H PRN Nausea And Vomiting Oxycodone/Acetaminophen 1 tab 04/13/21 00:16 04/14/21 22:49 Oxycodone /Acetaminophen 5-325mg Tab PO 1 tab Q6H PRN Administration Pain, Moderate (4-6) Potassium Chloride 20 meq 04/13/21 18:00 04/15/21 09:09 Potassium Chloride Er 20 Meq Tab PO 20 meq QDAY TIM Administration Senna 8.6 mg 04/13/21 00:16 Sennosides 8.6 Mg Tab PO Q12HR PRN Constipation Sertraline HCl 100 mg 04/13/21 10:00 04/15/21 09:10 Sertraline 100 Mg Tab PO 100 mg QDAY TIM Administration Sodium Chloride 10 ml 04/13/21 10:00 04/15/21 09:10 Sodium Chloride 0.9% 10 Ml Flush Syringe IV 10 ml BID TIM Administration Sodium Chloride 10 ml 04/13/21 00:16 04/14/21 06:18 Sodium Chloride 0.9% 10 Ml Flush Syringe IV 10 ml PRN PRN Administration LINE FLUSH Topiramate 50 mg 04/13/21 10:00 04/15/21 09:09 Topiramate Tab 25 Mg Tab PO 50 mg DAILY TIM Administration Tramadol HCl 50 mg 04/13/21 00:33 Tramadol 50 Mg Tab PO Q6H PRN Pain, Moderate (4-6) Trazodone HCl 50 mg 04/13/21 22:00 04/14/21 22:37 Trazodone 50 Mg Tab PO 50 mg QHS TIM Administration
[2021-04-15] MEDS ORDERED: POTASSIUM CHLORIDE ER 20 MEQ TAB PO NR (09:21)
[2021-04-15] MEDS ORDERED: FUROSEMIDE 40 MG TAB PO SCH (10:00)
[2021-04-15] MEDS ORDERED: hydrALAZINE 20 MG/1 ML INJ IV PRN (10:00)
--- NOTE | 2021-04-15 12:30 | Progress Note ---
Assessment and Plan AFIB with RVR * Continue metoprolol XL BID 50mg for rate control * Anticoagulated on Eliquis 5 mg twice daily HFpEF * BNP was noted to be elevated on admission * Echocardiogram 07/13/2020 reviewed: LVEF 55 to 60%. LV normal size. Mild to moderate LVH. LVSF normal. RVSF normal. Right atrium mildly dilated. Evid ence of atrial septal aneurysm. Mild TR, RVSP 37 mmHg. Mild ME * Patient appears to be nearing euvolemia. Diuretics have been reduced to Lasix 40 mg p.o. daily Chest pain with history of CAD * Patient reports pain hospitalized in January 2020 with AMI and CVA * Lexiscan MPI stress test 07/17/2020 is negative for reversible ischemia, EF 62% * Continue aspirin 81, atorvastatin 80 nightly, beta-emmanuel, Imdur 60 mg daily. No YESSENIA/ARB in setting of VAL VAL * Avoid nephrotoxic agents Elevated D-dimer * Management per primary team Patient currently stable cardiac status. May discharge from cardiology standpoint. Will follow on as needed basis. Patient should follow-up with Dr. DRISS Vaughn, [facility] heart specialists in our [place] office on 05/02/2021 at 1 PM. #[phone] Patient seen in conjunction with Dr. Strong who agrees with this assessment and plan of care. - Patient Problems (1) Acute chest pain Current Visit: Yes Status: Acute (2) Atrial fibrillation with RVR Current Visit: Yes Status: Acute (3) Heart failure with preserved ejection fraction (HFpEF) Current Visit: Yes Status: Acute (4) Elevated d-dimer Current Visit: Yes Status: Acute (5) Coronary artery disease Current Visit: Yes Status: Chronic Qualifiers: Coronary Disease-Associated Artery/Lesion type: osage artery [place] vs. transplanted heart: [place]age heart (6) Nonischemic Cardiomyopathy Current Visit: Yes Status: Chronic Subjective Date of service: 04/15/21 Principal diagnosis: SOB, HTN Interval history: Patient resting in bed. Complaining of left-sided discomfort x3 days. Pain is exacerbated with manipulation or movement. Telemetry reviewed: A. fib 80s. No events. Objective Last Vital Signs Temp 97.5 F L 04/15/21 07:48 Pulse 88 04/15/21 10:00 Resp 18 04/15/21 10:00 BP 185/93 04/15/21 09:09 Pulse Ox 94 04/15/21 10:00 - Physical Examination General: Appears Well, No Apparent Distress HEENT: Positive: PERRL Neck: Positive: trachea midline Cardiac: Positive: Reg Rate and Rhythm, S1/S2 Lungs: Positive: Normal Exam, Normal Breath Sounds Neuro: Positive: Grossly Intact Abdomen: Positive: Soft, Active Bowel Sounds Skin: Negative: Rash, Wound Musculoskeletal: other Extremities: Present: normal, upper extr. pulses, lower extr. pulses - Labs and Meds Comprehensive Metabolic Panel 04/15/21 Range/Units 04:04 Sodium 144 (137-145) mmol/L Potassium 3.4 L (3.6-5.0) mmol/L Chloride 104.4 (98-107) mmol/L Carbon Dioxide 28 D (22-30) mmol/L BUN 43 H (7-17) mg/dL Creatinine 1.7 H (0.6-1.2) mg/dL Glucose 189 H (65-100) mg/dL Calcium 8.8 (8.4-10.2) mg/dL - Imaging and Cardiology EKG: report reviewed, image reviewed Echo: report reviewed
[2021-04-15 13:04] VITALS: BP 144/67
--- NOTE | 2021-04-15 14:58 | Discharge Summary ---
Providers - Providers Date of Admission: 04/14/21 13:41 Date of discharge: 04/15/21 Attending physician: DESIRE BOWMAN 04/13/21 00:16 Consult to Physician [CONS] Routine Comment: Consulting Provider: ROBERT MANCIA Physician Instructions: Reason For Exam: chf Primary care physician: KEN DANIEL Hospitalization Reason for admission: Atypical chest pain, worsening shortness of breath Condition: Serious Pertinent studies: VQ scan ;nonspecific perfusion abnormality Lower extremity Doppler; negative for DVT Chest x-ray; trace interstitial edema Hospital course: 65-year-old obese female patient with significant past medical history of hypertension A. fib on chronic anticoagulation history of CVA with residual weakness chronic kidney disease history of TIA seizure disorder hypertension was admitted through emergency room with worsening shortness of breath and atypical chest pain. Patient was initially evaluated and admitted to the hospital, appropriately managed Patient had A. fib with rapid ventricular rate, evaluated by cardiology optimize the medication, rate was controlled, today patient is comfortable no new complaints, patient had acute on chronic kidney disease, slightly improved with gentle hydration back to her baseline Patient symptoms slowly but gradually improved, today patient is comfortable no new complaints vital signs stable, physical examination prior to discharge no new changes, patient is hemodynamically and clinically stable at discharge Advised to comply with medications diet and follow-up visits Advised exercise as tolerated dietary modification and weight reduction when medically stable Patient verbalized understanding, cleared by cardiology for discharge and follow-up per schedule Discharge diagnosis --Hypertension; Moderate control continue current antihypertensives --VAL on CKD 3 (acute kidney injury)/vasomotor nephropathy Present on admission monitor renal function, Avoid nephrotoxic Patient will follow with her online banking specialist upon discharge --Hypokalemia; Resolved, received KCl --Acute on chronic mild systolic CHF/ HFr EF[45 to 50%] EF 45 to 50% 2 months ago, cardiology optimize meds --Atypical acute chest pain Probably noncardiac ,follow cardio recommendations --A. fib with rapid ventricular rate; Continue beta-blockers, anticoagulation with Eliquis Follow cardiology upon discharge --Elevated d-dimer V/Q negative for PE, lower extremity Doppler negative for DVT --History of seizure disorder; Seizure precautions, continue antiepileptic medications Do not drive until cleared by PMD/neurologist --Obesity; BMI 38.2 Advised weight reduction when medically stable Cleared by cardiology for DC Stable at discharge Disposition: DC/[place]-06 HOME UNDER HOME [facility] Final Discharge Diagnosis (Prints w/discharge instructions): Acute on chronic mild systolic CHF. Atrial fibrillation RVR/now rate controlled. History of seizure disorder. Atypical chest pain. Elevated D-dimers hypokalemia resolved. Acute on chronic kidney disease stage III. Hypertension Time spent for discharge: 35 min Core Measure Documentation - Palliative Care Palliative Care/ Comfort Measures: Not Applicable - Core Measures Any of the following diagnoses?: none Exam - Constitutional Vitals: Temp Pulse Resp BP Pulse Ox 97.9 F 62 19 144/67 92 04/15/21 12:03 04/15/21 12:03 04/15/21 12:03 04/15/21 12:03 04/15/21 12:03 General appearance: Present: no acute distress, well-nourished - EENT Eyes: Present: PERRL, EOM intact - Neck Neck: Present: supple, normal ROM - Respiratory Respiratory effort: normal Respiratory: bilateral: diminished, negative: rales, rhonchi, wheezing - Cardiovascular Rhythm: regular Heart Sounds: Present: S1 & S2 - Extremities Extremities: no ischemia, No edema - Abdominal General gastrointestinal: Present: soft, non-tender, non-distended, normal bowel sounds - Integumentary Integumentary: Present: clear, warm - Musculoskeletal Musculoskeletal: strength equal bilaterally - Psychiatric Psychiatric: appropriate mood/affect, cooperative - Neurologic Neurologic: moves all extremities Plan Activity: advance as tolerated Diet: diabetic, other (Cardiac diet as tolerated) Additional Instructions: Advised to follow-up with Dr. DRISS Moreno, [facility] heart specialists in our [place] office on 05/02/2021 at 1 PM. #[id number]. Patient advised to comply with medications, diet and follow-up visits. Patient advised dietary modification, exercise as tolerated and weight reduction and medically stable. If you have worsening symptoms, contact MD or go to the nearest emergency room as needed Follow up with: KEN DANIEL MD [Primary Care Provider] - 7 Days CARLITO MORENO MD [Staff Physician] - 05/02/21 1:00 pm Forms: Accompanied Note Prescriptions: Aspirin EC [Halfprin EC] 81 mg PO QDAY #30 tablet. ISOSORBIDE MONOnitrate [Imdur ER] 60 mg PO QDAY #30 tablet Metoprolol Xl [Metoprolol SUCCINATE ER TAB] 50 mg PO BID #60 tablet Topiramate [Topamax] 50 mg PO DAILY #30 tablet Sertraline [Zoloft] 100 mg PO QDAY #30
--- NOTE | 2021-04-16 09:08 | Electrocardiograph Report ---
[facility] Test Date: 2021-04-12 Test Time: 17:57:36 Pat Name: BEULAH TAYLOR Department: Room: A461 1 Gender: F Compliance Specialist: NILDA : 1955 Requested By: DESIRE BOWMAN Order Number: [id number] Reading MD: Andi Strong Measurements Intervals [place] Rate: 140 P: [place]: QRS: 5 QRSD: 89 T: 139 QT: 309 QTc: 473 Interpretive Statements afib Nonspecific T abnormalities, lateral leads Compared to ECG 02/04/2021 14:59:10 Electronically Signed On 04-16-2021 9:08:15 EDT by Andi Strong
--- NOTE | 2021-04-16 09:09 | Electrocardiograph Report ---
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
== END 2021-04-15 17:22 | disposition home health service (06) | DRG 291 ==
LOC: ED 16:40 → 4A 23:28 → OBSVTOIN 04-14 13:41
PROVIDERS: ADMIT Hospitalist; ATTEND Internal Medicine
DX: I13.0 Hypertensive heart and chronic kidney disease with heart failure and stage 1 through stage 4 chronic kidney disease, or unspecified chronic kidney disease (principal); N17.0 Acute kidney failure with tubular necrosis; I50.43 Acute on chronic combined systolic (congestive) and diastolic (congestive) heart failure; I69.954 Hemiplegia and hemiparesis following unspecified cerebrovascular disease affecting left non-dominant side; E11.22 Type 2 diabetes mellitus with diabetic chronic kidney disease; N18.30 Chronic kidney disease, stage 3 unspecified; E66.01 Morbid (severe) obesity due to excess calories; I48.0 Paroxysmal atrial fibrillation; M79.7 Fibromyalgia; I42.8 Other cardiomyopathies; E87.6 Hypokalemia; E78.5 Hyperlipidemia, unspecified; M19.90 Unspecified osteoarthritis, unspecified site; G47.33 Obstructive sleep apnea (adult) (pediatric); I25.10 Atherosclerotic heart disease of native coronary artery without angina pectoris; G40.909 Epilepsy, unspecified, not intractable, without status epilepticus; Z68.38 Body mass index [BMI] 38.0-38.9, adult; I25.2 Old myocardial infarction; Z95.828 Presence of other vascular implants and grafts; Z79.899 Other long term (current) drug therapy; Z79.891 Long term (current) use of opiate analgesic; Z79.01 Long term (current) use of anticoagulants; Z79.4 Long term (current) use of insulin; Z90.710 Acquired absence of both cervix and uterus; Z83.3 Family history of diabetes mellitus
CPT/HCPCS: 36415; 71045; 78580; 80048; 80053; 82962; 83735; 83880; 84100; 84443; 84484; 85025; 85379; 93005; 93970; 94644; G0378; A9270-GY; A9540; J1815; J1940

== ENCOUNTER 2021-04-17 10:29 | Emergency (ER) | payer MEDICARE ==
--- NOTE | 2021-04-17 11:05 | Event Note ---
ED Screening Note Date of service: 04/17/21 Time: 11:02 ED Screening Note: 65-year-old female patient with history of prior stroke with residual left-sided weakness, atrial fibrillation, and congestive heart failure presents to the emergency department with complaints of left upper quadrant pain. Patient was recently discharged from the hospital and was sent to the emergency department by her primary care provider for evaluation of reportedly elevated blood pressure. However, her blood pressure here is within normal limits. Sister states patient took her blood pressure medications prior to arrival. Patient claims she has been experiencing left upper quadrant pain since she was hospit alized last week however this is not reflected in the medical record and the patient's sister states today was the first time she heard her complain of abdominal pain. General: Awake, appropriately interactive, no acute distress. Neck: Supple. Full range of motion intact. Cardiovascular: Irregularly irregular. Normal peripheral perfusion. Pulmonary: No respiratory distress. Patient is speaking normally without use of accessory muscles. Abdomen: Left upper quadrant tenderness, no guarding or rebound. Skin: No apparent rashes or lesions. Neurological: No facial asymmetry. Speech is clear. Follows commands. Patient is alert and oriented. Musculoskeletal: Non-ambulatory. Psych: Cooperative. Appropriate mood and affect. EKG, chest x-ray, and labs ordered. Decision to obtain further imaging deferred to additional ED providers following full history and comprehensive physical assessment. I have greeted and performed a focused rapid initial assessment of this patient. A comprehensive ED assessment and evaluation of the patient, analysis of all test results, and completion of the medical decision-making process will be conducted by additional ED providers. This initial assessment/diagnostic orders/clinical plan/treatment(s) is/are subject to change based on patients health status, clinical progression and re-assessment. Further treatment and workup at subsequent clinical provider's discretion. Patient/guardian urged not to elope from the ED as their condition may be serious if not clinically assessed and managed.
--- NOTE | 2021-04-17 12:16 | Emergency Department Report ---
HPI - General Chief Complaint: Abdominal Pain Time Seen by Provider: 04/17/21 11:37 - HPI HPI: Room 9 The patient is a 65-year-old female present with chief complaint of hypertension. Patient was recently admitted and discharged from this hospital for chest pain A. fib with RVR. The caregiver was speaking with the patient's physician today and informed him that her blood pressures were elevated at 158/116 and 159/112 and her blood pressure control. Sure she was subsequently instructed to bring the patient to the emergency department the patient took her blood pressure medication prior to arrival to the ED and when she arrived she was found to have a normal blood pressure of 126/84. The patient states she has had pain in the left breast and left belly for the past 2 to 3 days this been constant and sharp in nature. Patient denies nausea/vomiting but admits to shortness of breath and diaphoresis with the pain. Patient currently gives her pain a score of 6/10. Patient was recently seen by cardiology for the same during his last admission ED Past Medical Hx - Past Medical History Hx Hypertension: Yes Hx CVA: Yes (right side weakness) Hx Heart Attack/AMI: Yes (Recent [place]. + Cardiac clearance.) Hx Diabetes: Yes Hx Renal Disease: Yes (VAL. Pyelonephritis. Hydronephrosis) Hx Seizures: Yes Additional medical history: TIA X14 had seizure after the last one became unconscious, Afib - Surgical History Additional Surgical History: B/L Knee, carpal tunnel, kidney stents, - Family History Family history: no significant - Social History Smoking Status: Never Smoker Substance Use Type: None - Medications Home Medications: Home Medications Medication Instructions Recorded Confirmed Last Taken Type Apixaban [Eliquis] 5 mg PO Q12HR #60 tablet 02/14/21 04/13/21 Unknown Rx AtorvaSTATin [Lipitor] 80 mg PO QHS #60 tablet 02/14/21 04/13/21 Unknown Rx Gabapentin 300 mg PO QPM #30 capsule 02/14/21 04/13/21 Unknown Rx Insulin Glargine [Lantus VIAL] 15 units SUB-Q QHS #10 ml 02/14/21 04/13/21 Unknown Rx levETIRAcetam [Keppra TAB] 500 mg PO BID #60 02/14/21 04/13/21 Unknown Rx Aspirin EC [Halfprin EC] 81 mg PO QDAY #30 tablet. 04/15/21 Unknown Rx ISOSORBIDE MONOnitrate [Imdur ER] 60 mg PO QDAY #30 tablet 04/15/21 Unknown Rx Metoprolol Xl [Metoprolol 50 mg PO BID #60 tablet 04/15/21 Unknown Rx SUCCINATE ER TAB] Sertraline [Zoloft] 100 mg PO QDAY #30 04/15/21 Unknown Rx Topiramate [Topamax] 50 mg PO DAILY #30 tablet 04/15/21 Unknown Rx Famotidine [Pepcid] 20 mg PO BID #30 tablet 04/17/21 Unknown Rx traMADoL [Ultram] 50 mg PO Q6HR PRN #10 tablet 04/17/21 Unknown Rx ED Review of Systems ROS: Stated complaint: PT REFERRED BY NURSE/CVA, CARDIAC Other details as noted in HPI Constitutional: diaphoresis Eyes: denies: eye pain ENT: denies: throat pain Respiratory: shortness of breath Cardiovascular: chest pain Endocrine: no symptoms reported Gastrointestinal: abdominal pain. denies: nausea, vomiting Genitourinary: denies: dysuria Musculoskeletal: denies: back pain Neurological: denies: headache Physical Exam - Physical Exam Vital Signs: Vital Signs 04/17/21 04/17/21 10:32 11:39 Temperature 98.7 F Pulse Rate 100 H 71 Respiratory 20 18 Rate Blood Pressure 126/60 Blood Pressure 126/84 [Right] O2 Sat by Pulse 98 98 Oximetry Physical Exam: GENERAL: The patient is well-developed well-nourished female lying on stretcher not appearing to be in acute distress. [] HEENT: Normocephalic. Atraumatic. Extraocular motions are intact. Patient has moist mucous membranes. NECK: Supple. Trachea midline CHEST/LUNGS: Clear to auscultation. There is no respiratory distress noted. HEART/CARDIOVASCULAR: Irregularly irregular. There is no tachycardia. There is no gallop rub or murmur. ABDOMEN: Abdomen is soft, without rebound or guarding the patient complains of discomfort to palpation in the left upper quadrant. Patient has normal bowel sounds. There is no abdominal distention. SKIN: There is no rash. There is no edema. There is no diaphoresis. NEURO: The patient is awake, alert, and oriented. The patient is cooperative. GCS 15. The patient has normal speech MUSCULOSKELETAL: There is no evidence of acute injury. ED Course Vital Signs 04/17/21 04/17/21 10:32 11:39 Temperature 98.7 F Pulse Rate 100 H 71 Respiratory 20 18 Rate Blood Pressure 126/60 Blood Pressure 126/84 [Right] O2 Sat by Pulse 98 98 Oximetry ED Medical Decision Making - Lab Data Result diagrams: 04/17/21 11:52 04/17/21 11:52 Laboratory Tests 04/17/21 04/17/21 04/17/21 11:52 11:52 11:52 WBC 5.6 RBC 4.36 Hgb 10.7 Hct 34.0 MCV 78 L MCH 25 L MCHC 32 RDW 16.0 H Plt Count 218 Lymph % (Auto) 23.2 [place] % (Auto) 10.0 H Eos % (Auto) 9.9 H Baso % (Auto) 0.7 Lymph # (Auto) 1.3 [place] # (Auto) 0.6 Eos # (Auto) 0.6 H Baso # (Auto) 0.0 Seg Neutrophils % 56.2 Seg Neutrophils # 3.2 PT 15.2 H INR 1.15 H APTT 30.7 Sodium 145 Potassium 3.6 Chloride 103.3 Carbon Dioxide 30 Anion Gap 15 BUN 45 H Creatinine 1.8 H Estimated GFR 34 BUN/Creatinine Ratio 25 Glucose 156 H Calcium 10.2 D Magnesium 2.20 Total Bilirubin 0.20 AST 14 ALT 18 Alkaline Phosphatase 101 Total Creatine Kinase CK-MB (CK-2) CK-MB (CK-2) Rel Index Troponin T 0.024 NT-Pro-B Natriuret Pep Total Protein 7.3 D Albumin 4.0 Albumin/Globulin Ratio 1.2 Lipase 04/17/21 04/17/21 04/17/21 11:52 11:52 12:03 WBC RBC Hgb Hct MCV MCH MCHC RDW Plt Count Lymph % (Auto) [place] % (Auto) Eos % (Auto) Baso % (Auto) Lymph # (Auto) [place] # (Auto) Eos # (Auto) Baso # (Auto) Seg Neutrophils % Seg Neutrophils # PT INR APTT Sodium Potassium Chloride Carbon Dioxide Anion Gap BUN Creatinine Estimated GFR BUN/Creatinine Ratio Glucose Calcium Magnesium Total Bilirubin AST ALT Alkaline Phosphatase Total Creatine Kinase 100 CK-MB (CK-2) 2.2 CK-MB (CK-2) Rel Index 2.2 Troponin T NT-Pro-B Natriuret Pep 1624 H Total Protein Albumin Albumin/Globulin Ratio Lipase 69 H 04/17/21 15:10 WBC RBC Hgb Hct MCV MCH MCHC RDW Plt Count Lymph % (Auto) [place] % (Auto) Eos % (Auto) Baso % (Auto) Lymph # (Auto) [place] # (Auto) Eos # (Auto) Baso # (Auto) Seg Neutrophils % Seg Neutrophils # PT INR APTT Sodium Potassium Chloride Carbon Dioxide Anion Gap BUN Creatinine Estimated GFR BUN/Creatinine Ratio Glucose Calcium Magnesium Total Bilirubin AST ALT Alkaline Phosphatase Total Creatine Kinase CK-MB (CK-2) CK-MB (CK-2) Rel Index Troponin T 0.018 NT-Pro-B Natriuret Pep Total Protein Albumin Albumin/Globulin Ratio Lipase - Radiology Data Radiology results: report reviewed (CT abdomen pelvis, chest x-ray), image reviewed (CT abdomen pelvis, chest x-ray) interpreted by me: Chest x-ray-no definite focal infiltrate, no pneumothorax. No foreign body seen [facility] [address] [place] [address] Cat Scan Report Signed Patient: BEULAH TAYLOR MR#: [id number] : 1955 Acct:[id number] Age/Sex: 65 / F ADM Date: 04/17/21 Loc: ED Attending Dr: Ordering Physician: THAD WELLS MD Date of Service: 04/17/21 Procedure(s): CT abdomen pelvis wo con Accession Number(s): [id number] cc: THAD WELLS MD CT ABDOMEN AND PELVIS WITHOUT CONTRAST INDICATION / CLINICAL INFORMATION: Left- sided abdominal pain. TECHNIQUE: Axial CT images were obtained through the abdomen and pelvis without IV contrast. All CT scans at this location are performed using CT dose reduction for [facility] by means of automated exposure control. COMPARISON: CT dated 07/12/20 FINDINGS: LOWER CHEST: Linear scarring in the left lung base is unchanged. LIVER: No significant abnormality. GALLBLADDER: Calcified gallstones are unchanged. No wall thickening or infla mmation. BILE DUCTS: No significant abnormality. PANCREAS: No significant abnormality. SPLEEN: No significant abnormality. ADRENALS: No significant abnormality. RIGHT KIDNEY / URETER: Chronic right hydronephrosis with right renal cortical thinning is unchanged. This may be due to to chronic UPJ obst ruction. No ureteral stone. LEFT KIDNEY / URETER: No significant abnormality. STOMACH / SMALL BOWEL: No significant abnormality. COLON: No significant abnormality. APPENDIX: No significant abnormality. PERITONEUM: No free fluid. No free air. No fluid collection. LYMPH NODES: No significant adenopathy. AORTA / ARTERIES: Mild atherosclerotic calcification without acute abnormality. IVC / VEINS: No acute abnormality. Retroaortic left renal vein. URINARY BLADDER: No significant abnormality. REPRODUCTIVE ORGANS: Uterus is absent. No significant adnexal abnormality. ADDITIONAL FINDINGS: None. SKELETAL SYSTEM: No significant abnormality. IMPRESSION: 1. No inflammatory process or bowel obstruction. 2. Cholelithiasis, unchanged. 3. Chronic right osteoporosis and cortical thinning likely representing chronic UPJ obstruction. No change. Signer Name: Sukhdev Cedeno MD Signed: 04/17/2021 2:27 PM Workstation Name: [id number] Transcribed By: DT Dictated By: Fahad Cedeno MD Electronically Authenticated By: Fahad Cedeno MD Signed Date/Time: 04/17/211426 DD/ 22 TD/TT: Print Cancel [facility] [address] [place] [address] XRay Report Signed Patient: BEULAH TAYLOR MR#: [id number] : 1955 Acct:A0 [id number] Age/Sex: 65 / F ADM Date: 04/17/21 Loc: ED Attending Dr: Ordering Physician: THAD WELLS MD Date of Service: 04/17/21 Procedure(s): XR chest 1V ap Accession Number(s): [id number] cc: THAD WELLS MD Fluoro Time In Minutes: CHEST 1 VIEW INDICATION: LUQ/CP. COMPARISON: 04/12/2021 FINDINGS: Support devices: None. Heart: Stable mild cardiomegaly Lungs/Pleura: Stable mild pulmonary venous congestion. No evidence for infiltrate, pleural effusion or pneumothorax. Additional findings: None. IMPRESSION: Stable mild cardiomegaly and pulmonary venous congestion. Signer Name: Tyree Torres Jr, MD Signed: 04/17/2021 1:39 PM Workstation Name: [id number] Transcribed By: TTR Dictated By: TYREE TORRES JR, MD Electronically Authenticated By: TYREE TORRES JR, MD Signed Date/Time: 04/17/211338 DD/ 38 TD/TT: Print Cancel - Differential Diagnosis Hypertension, ACS, peptic ulcer disease, gastritis Critical care attestation.: If time is entered above; I have spent that time in minutes in the direct care of this critically ill patient, excluding procedure time. ED Disposition Clinical Impression: Hypertension, Abdominal pain Disposition: - TO HOME OR SELFCARE Is pt being admited?: No Does the pt Need Aspirin: No Condition: Stable Instructions: Abdominal Pain (ED), Hypertension (ED) Additional Instructions: Return to the emergency department should you develop worsening symptoms, inability to tolerate food or liquids, high fever or any other concerns Prescriptions: Famotidine [Pepcid] 20 mg PO BID #30 tablet traMADoL [Ultram] 50 mg PO Q6HR PRN #10 tablet PRN Reason: Pain Referrals: PRIMARY CARE, [Primary Care Provider] - 3-5 Days Time of Disposition: 16:08
[2021-04-17 12:25] LABS: Basophils % (Auto) 0.7 % (0.0-1.8); Eosinophils # (Auto) 0.6 K/mm3 (0.0-0.4); Eosinophils % (Auto) 9.9 % (0.0-4.3); Hemoglobin 10.7 gm/dl (10.1-14.3); Lymphocytes # (Auto) 1.3 K/mm3 (1.2-5.4); Lymphocytes % (Auto) 23.2 % (13.4-35.0); Mean Corpuscular HGB Conc 32 % (30-34); Mean Corpuscular Volume 78 fl (79-97); Monocytes # (Auto) 0.6 K/mm3 (0.0-0.8); Platelet Count 218 K/mm3 (140-440); Red Blood Count 4.36 M/mm3 (3.65-5.03)
[2021-04-17 12:29] LABS: Creatine Kinase MB 2.2 ng/mL (0.0-4.0)
[2021-04-17 12:32] LABS: Calcium 10.2 mg/dL (8.4-10.2)
[2021-04-17 12:34] LABS: INR 1.15 (0.87-1.13)
[2021-04-17 12:35] LABS: Partial Thromboplastin Time 30.7 Sec. (24.2-36.6)
--- NOTE | 2021-04-17 13:43 | XRay Report ---
CHEST 1 VIEW INDICATION: LUQ/CP. COMPARISON: 04/12/2021 FINDINGS: Support devices: None. Heart: Stable mild cardiomegaly Lungs/Pleura: Stable mild pulmonary venous congestion. No evidence for infiltrate, pleural effusion o r pneumothorax. Additional findings: None. IMPRESSION: Stable mild cardiomegaly and pulmonary venous congestion. Signer Name: Tyree Torres Jr, MD Signed: 04/17/2021 1:39 PM Workstation Name: [id number]
--- NOTE | 2021-04-17 14:31 | Cat Scan Report ---
CT ABDOMEN AND PELVIS WITHOUT CONTRAST INDICATION / CLINICAL INFORMATION: Left-sided abdominal pain. TECHNIQUE: Axial CT images were obtained through the abdomen and pelvis without IV contrast. All CT scans at this location are performed using CT dose reduction for [place] by means of automated exposure control. COMPARISON: CT dated 07/12/20 FINDINGS: LOWER CHEST: Linear scarring in the left lung base is unchanged. LIVER: No significant abnormality. GALLBLADDER: Calcified gallstones are unchanged. No wall thickening or inflammation. BILE DUCTS: No significant abnormality. PANCREAS: No significant abnormality. SPLEEN: No significant abnormality. ADRENALS: No significant abnormality. RIGHT KIDNEY / URETER: Chronic right hydronephrosis with right renal cortical thinning is unchanged. This may be due to to chronic UPJ obstruction. No ureteral stone. LEFT KIDNEY / URETER: No significant abnormality. STOMACH / SMALL BOWEL: No significant abnormality. COLON: No significant abnormality. APPENDIX: No significant abnormality. PERITONEUM: No free fluid. No free air. No fluid collection. LYMPH NODES: No significant adenopathy. AORTA / ARTERIES: Mild atherosclerotic calcification without acute abnormality. IVC / VEINS: No acute abnormality. Retroaortic left renal vein. URINARY BLADDER: No significant abnormality. REPRODUCTIVE ORGANS: Uterus is absent. No significant adnexal abnormality. ADDITIONAL FINDINGS: None. SKELETAL SYSTEM: No significant abnormality. IMPRESSION: 1. No inflammatory process or bowel obstruction. 2. Cholelithiasis, unchanged. 3. Chronic right osteoporosis and cortical thinning likely representing chronic UPJ obstruction. No c saniae. Signer Name: Sukhdev Cedeno MD Signed: 04/17/2021 2:27 PM Workstation Name: [id number]
[2021-04-17 16:41] VITALS: BP 144/102
--- NOTE | 2021-04-18 12:24 | Electrocardiograph Report ---
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
== END 2021-04-17 16:41 | disposition home or self-care (01) ==
LOC: ED 10:29
DX: R10.12 Left upper quadrant pain (principal); I10 Essential (primary) hypertension; I25.2 Old myocardial infarction; E11.9 Type 2 diabetes mellitus without complications; R56.9 Unspecified convulsions; Z98.890 Other specified postprocedural states; Z79.899 Other long term (current) drug therapy; Z79.4 Long term (current) use of insulin
CPT/HCPCS: 36415; 71045; 74176; 80053; 82550; 82553; 83690; 83735; 83880; 84484; 85025; 85610; 85730; 93005

== ENCOUNTER 2021-06-04 15:51 | Inpatient (IN) | payer MEDICARE ==
[2021-06-04] MEDS ORDERED: HYDROcodone/ACETAMINOPHEN 5-325 MG TAB PO ONE (16:27)
[2021-06-04] MEDS ORDERED: MORPHINE 4 MG/1 ML INJ IV ONE (18:11)
--- NOTE | 2021-06-04 18:31 | XRay Report ---
Left foreleg 3 views INDICATION: Left foreleg pain IMPRESSION: Diffuse osteopenia of the foreleg but no foreleg fracture identified. Again there is a di splaced distal periprosthetic femoral fracture. Large knee effusion incidentally noted. Signer Name: Nate Hughes MD Signed: 06/04/2021 6:27 PM Workstation Name: [id number]
--- NOTE | 2021-06-04 18:31 | XRay Report ---
Left femur 6 views INDICATION: Left femur pain following fall IMPRESSION: There is a comminuted and displaced periprosthetic fracture involving the distal left fem ur. Signer Name: Nate Hughes MD Signed: 06/04/2021 6:27 PM Workstation Name: [id number]
--- NOTE | 2021-06-04 18:42 | History and Physical Report ---
History of Present Illness Chief complaint: I fell down History of present illness: 65 YO Female with HTN, DM, HLD, CVA, MT, Systolic CHF(EF 45%) Paroxysmal Atrial Fib on therapeutic anticoagulation with Eliquis, Seizure Disorder, FM, OA presents to ED for evaluation. Patient reported "I fell down and landed on my left side 2 days ago". Patient states that she fell while attempting to rise from the toilet and landed on her left side. Patient states that she experienced a sudden onset of left-sided pain and difficulty with weightbearing. Patient states that pain has worsened over the same timeframe. EMS was notified and upon arrival the patient was found to be in distress and subsequent transported to [facility] for further care and evaluation of the aforementioned symptoms. The patient was seen and evaluated in the emergency department. All lab and imaging studies reviewed. Patient underwent x-ray of the left hip and was found to have a left femur fracture. Orthopedic surgery service consulted in the emergency department. Patient is pending surgical intervention. Patient denies fever, chills, chest pain, palpitation, productive cough, skin rash, recent ill contact, or known exposure to COVID-19. Prior admission on 04/14/2021 reviewed. All medication listed at time of admission has been reconciled. Advanced care planning conducted in ED. Past History Past Medical History: atrial fib, diabetes, hypertension, hyperlipidemia, other (See HPI) Past Surgical History: total knee replacement, Other (Carpal tunnel surgery) Social history: single. denies: smoking, alcohol abuse Family history: diabetes, hypertension Medications and Allergies Allergies Allergy/AdvReac Type Severity Reaction Status Date / Time No Known Allergies Allergy Verified 07/12/20 05:04 Home Medications Medication Instructions Recorded Confirmed Last Taken Type Apixaban [Eliquis] 5 mg PO Q12HR #60 tablet 02/14/21 04/13/21 Unknown Rx AtorvaSTATin [Lipitor] 80 mg PO QHS #60 tablet 02/14/21 04/13/21 Unknown Rx Gabapentin 300 mg PO QPM #30 capsule 02/14/21 04/13/21 Unknown Rx Insulin Glargine [Lantus VIAL] 15 units SUB-Q QHS #10 ml 02/14/21 04/13/21 Unknown Rx levETIRAcetam [Keppra TAB] 500 mg PO BID #60 02/14/21 04/13/21 Unknown Rx Aspirin EC [Halfprin EC] 81 mg PO QDAY #30 tablet. 04/15/21 Unknown Rx ISOSORBIDE MONOnitrate [Imdur ER] 60 mg PO QDAY #30 tablet 04/15/21 Unknown Rx Metoprolol Xl [Metoprolol 50 mg PO BID #60 tablet 04/15/21 Unknown Rx SUCCINATE ER TAB] Sertraline [Zoloft] 100 mg PO QDAY #30 04/15/21 Unknown Rx Topiramate [Topamax] 50 mg PO DAILY #30 tablet 04/15/21 Unknown Rx Famotidine [Pepcid] 20 mg PO BID #30 tablet 04/17/21 Unknown Rx traMADoL [Ultram] 50 mg PO Q6HR PRN #10 tablet 04/17/21 Unknown Rx Review of Systems Constitutional: no weight loss, no weight gain, no fever, no chills Ears, nose, mouth and throat: no ear pain, no ear discharge, no decreased hearing, no nose pain, no nasal congestion Breasts: no change in shape, no swelling, no mass Cardiovascular: no chest pain, no orthopnea, no palpitations Respiratory: no cough, no excessive sputum, no shortness of breath Gastrointestinal: no abdominal pain, no vomiting, no diarrhea, no constipation, no change in bowel habits Genitourinary Female: no pelvic pain, no flank pain, no dysuria, no urinary frequency, no urgency Rectal: no pain, no incontinence, no bleeding Musculoskeletal: other (Left leg pain), no neck stiffness, no shooting arm pain, no arm numbness/tingling Integumentary: no rash, no pruritis, no redness, no sores, no wounds, no jaundice Neurological: no transient paralysis, no paralysis, no parathesias, no seizures, no syncope, no tremors, no ataxia Psychiatric: no anxiety, no change in sleep habits, no hypersomnia, no change in libido Endocrine: no cold intolerance, no polyphagia, no polydipsia, no nocturia, no excessive sweating Hematologic/Lymphatic: no easy bruising, no easy bleeding Allergic/Immunologic: no urticaria, no allergic rhinitis Exam - Constitutional General appearance: Present: mild distress, obese - EENT Eyes: Present: PERRL ENT: hearing intact, clear oral mucosa - Neck Neck: Present: supple, normal ROM - Respiratory Respiratory effort: normal Respiratory: bilateral: CTA - Cardiovascular Heart Sounds: Present: S1 & S2. Absent: rub, click - Extremities Extremities: pulses symmetrical, No edema Extremity abnormal: other (Left hip pain) Peripheral Pulses: within normal limits - Abdominal General gastrointestinal: Present: soft, non-tender, non-distended, normal bowel sounds Female genitourinary: Present: normal - Integumentary Integumentary: Present: clear, warm, dry - Musculoskeletal Musculoskeletal: gait normal, strength equal bilaterally - Psychiatric Psychiatric: appropriate mood/affect, intact judgment & insight - Neurologic Neurologic: CNII-XII intact, moves all extremities Results - Labs CBC & Chem 7: 06/04/21 19:00 06/04/21 19:00 Assessment and Plan - Patient Problems (1) Displaced fracture of femur Current Visit: Yes Status: Acute Plan to address problem: Orthopedic surgery service consulted in ED. Pain control, supportive care. (2) Obesity hypoventilation syndrome Current Visit: Yes Status: Acute Plan to address problem: Balanced diet, increase physical activity at discharge, outpatient pulmonary follow-up for sleep study, noninvasive positive pressure ventilation as clinically indicated. (3) Paroxysmal atrial fibrillation Current Visit: Yes Status: Acute Plan to address problem: Rate control, prophylactic anticoagulation preoperatively. Resume therapeutic anticoagulation postoperatively as per surgical team. (4) Diabetes Current Visit: Yes Status: Acute (5) Hypertension Current Visit: No Status: Chronic Qualifiers: Hypertension type: primary hypertension Qualified Code(s): I10 - Essential (primary) hypertension Plan to address problem: Monitor blood pressure every shift, continue medical management (6) CHF (congestive heart failure) Current Visit: Yes Status: Acute Qualifiers: Heart failure type: systolic Plan to address problem: Compensated at this time, cardiology team consulted, continue medical management, blood pressure control, supplemental oxygen, strict I's/O, daily weight, afterload reduction (7) DVT prophylaxis Current Visit: Yes Status: Acute Plan to address problem: SCDs bilateral lower extremities while in bed, prophylactic anticoagulation (8) Advance care planning Current Visit: Yes Status: Acute Plan to address problem: Disease education conducted, care plan discussed, diagnosis discussed, prognosis discussed, patient is full code, patient knowledges understanding agreement with care plan, +30 minutes.
--- NOTE | 2021-06-04 18:46 | Emergency Department Report ---
ED Extremity Problem HPI - General Chief complaint: Extremity Injury, Lower Stated complaint: LT KNEE PAIN Time Seen by Provider: 06/04/21 16:24 Source: patient Mode of arrival: Stretcher Limitations: Physical Limitation - History of Present Illness Initial comments: Patient is a 65-year-old F Chinese female who is presenting with pain in the left lower extremity after a fall a day and a half ago. Patient states she was able to bear very minimal amount of weight once since the fall. States the aching throbbing pain surrounding the entire left knee. Patient had a total knee replacement approximately 40 years ago secondary to arthritis according to the patient. Patient has no other injuries at this time. No other complaints. Pain is estimated at 5 out of 10 as long as she is moving. With any type of significant movement of the left knee the patient states the pain is 10 out of 10 Severity scale (0 -10): 8 - Related Data Previous Rx's Medication Instructions Recorded Last Taken Type Apixaban [Eliquis] 5 mg PO Q12HR #60 tablet 02/14/21 Unknown Rx AtorvaSTATin [Lipitor] 80 mg PO QHS #60 tablet 02/14/21 Unknown Rx Gabapentin 300 mg PO QPM #30 capsule 02/14/21 Unknown Rx Insulin Glargine [Lantus VIAL] 15 units SUB-Q QHS #10 ml 02/14/21 Unknown Rx levETIRAcetam [Keppra TAB] 500 mg PO BID #60 02/14/21 Unknown Rx Aspirin EC [Halfprin EC] 81 mg PO QDAY #30 tablet. 04/15/21 Unknown Rx ISOSORBIDE MONOnitrate [Imdur ER] 60 mg PO QDAY #30 tablet 04/15/21 Unknown Rx Metoprolol Xl [Metoprolol 50 mg PO BID #60 tablet 04/15/21 Unknown Rx SUCCINATE ER TAB] Sertraline [Zoloft] 100 mg PO QDAY #30 04/15/21 Unknown Rx Topiramate [Topamax] 50 mg PO DAILY #30 tablet 04/15/21 Unknown Rx Famotidine [Pepcid] 20 mg PO BID #30 tablet 04/17/21 Unknown Rx traMADoL [Ultram] 50 mg PO Q6HR PRN #10 tablet 04/17/21 Unknown Rx Allergies Allergy/AdvReac Type Severity Reaction Status Date / Time No Known Allergies Allergy Verified 07/12/20 05:04 ED Review of Systems ROS: Stated complaint: LT KNEE PAIN Other details as noted in HPI Comment: All other systems reviewed and negative ED Past Medical Hx - Past Medical History Hx Hypertension: Yes Hx CVA: Yes (right side weakness) Hx Heart Attack/AMI: Yes (Recent AR. + Cardiac clearance.) Hx Diabetes: Yes Hx Renal Disease: Yes (VAL. Pyelonephritis. Hydronephrosis) Hx Seizures: Yes Additional medical history: TIA X14 had seizure after the last one became unconscious, Afib - Surgical History Additional Surgical History: B/L Knee, carpal tunnel, kidney stents, - Social History Smoking Status: Never Smoker Substance Use Type: None - Medications Home Medications: Home Medications Medication Instructions Recorded Confirmed Last Taken Type Apixaban [Eliquis] 5 mg PO Q12HR #60 tablet 02/14/21 04/13/21 Unknown Rx AtorvaSTATin [Lipitor] 80 mg PO QHS #60 tablet 02/14/21 04/13/21 Unknown Rx Gabapentin 300 mg PO QPM #30 capsule 02/14/21 04/13/21 Unknown Rx Insulin Glargine [Lantus VIAL] 15 units SUB-Q QHS #10 ml 02/14/21 04/13/21 Unknown Rx levETIRAcetam [Keppra TAB] 500 mg PO BID #60 02/14/21 04/13/21 Unknown Rx Aspirin EC [Halfprin EC] 81 mg PO QDAY #30 tablet. 04/15/21 Unknown Rx ISOSORBIDE MONOnitrate [Imdur ER] 60 mg PO QDAY #30 tablet 04/15/21 Unknown Rx Metoprolol Xl [Metoprolol 50 mg PO BID #60 tablet 04/15/21 Unknown Rx SUCCINATE ER TAB] Sertraline [Zoloft] 100 mg PO QDAY #30 04/15/21 Unknown Rx Topiramate [Topamax] 50 mg PO DAILY #30 tablet 04/15/21 Unknown Rx Famotidine [Pepcid] 20 mg PO BID #30 tablet 04/17/21 Unknown Rx traMADoL [Ultram] 50 mg PO Q6HR PRN #10 tablet 04/17/21 Unknown Rx ED Physical Exam - General Limitations: Physical Limitation General appearance: alert, in no apparent distress - Head Head exam: Present: atraumatic, normocephalic - Eye Eye exam: Present: normal appearance, PERRL, EOMI - ENT ENT exam: Present: mucous membranes moist - Neck Neck exam: Present: normal inspection - Respiratory Respiratory exam: Present: normal lung sounds bilaterally. Absent: respiratory distress, wheezes, rales, rhonchi - Cardiovascular Cardiovascular Exam: Present: regular rate, normal rhythm, normal heart sounds. Absent: systolic murmur, diastolic murmur, rubs, gallop - GI/Abdominal GI/Abdominal exam: Present: soft, normal bowel sounds. Absent: distended, tenderness, guarding, rebound - Extremities Exam Extremities exam: Present: normal inspection, joint swelling (Left knee held at approximately 30 degrees of flexion. There is generalized swelling and warmth. Patient has increased pain with any type of range of motion.) - Back Exam Back exam: Present: normal inspection - Neurological Exam Neurological exam: Present: alert, oriented X3 - Psychiatric Psychiatric exam: Present: normal affect, normal mood - Skin Skin exam: Present: warm, dry, intact, normal color. Absent: rash ED Medical Decision Making - Radiology Data Patient's x-rays show distal femur fracture just above the patient's prosthesis - Medical Decision Making Patient to be admitted to the hospitalist service with Ortho consult. Critical care attestation.: If time is entered above; I have spent that time in minutes in the direct care of this critically ill patient, excluding procedure time. ED Disposition Clinical Impression: Displaced fracture of femur Disposition: ADMITTED INPATIENT Is pt being admited?: Yes Does the pt Need Aspirin: No Condition: Stable Time of Disposition: 18:49
[2021-06-04] MEDS ORDERED: traMADol 50 MG TAB PO PRN (19:00)
[2021-06-04 19:31] LABS: Calcium 9.5 mg/dL (8.4-10.2)
[2021-06-04 19:41] LABS: Basophils % (Auto) 0.3 % (0.0-1.8); Eosinophils # (Auto) 0.1 K/mm3 (0.0-0.4); Hematocrit 32.3 % (30.3-42.9); Hemoglobin 9.8 gm/dl (10.1-14.3); Lymphocytes # (Auto) 1.6 K/mm3 (1.2-5.4); Lymphocytes % (Auto) 19.6 % (13.4-35.0); Mean Corpuscular HGB Conc 30 % (30-34); Mean Corpuscular Volume 79 fl (79-97); Monocytes # (Auto) 0.7 K/mm3 (0.0-0.8); Monocytes % (Auto) 9.1 % (0.0-7.3); Platelet Count 166 K/mm3 (140-440); Red Blood Count 4.08 M/mm3 (3.65-5.03); Red Cell Distribution Width 17.3 % (13.2-15.2)
[2021-06-04] MEDS ORDERED: oxyCODONE /ACETAMINOPHEN 5-325MG TAB PO PRN (20:00)
[2021-06-04] MEDS ORDERED: ONDANSETRON 4 MG/2 ML INJ IV PRN (20:00)
[2021-06-04] MEDS ORDERED: ALBUTEROL 2.5 MG/3 ML NEBU IH PRN (20:00)
[2021-06-04] MEDS: HEPARIN 5,000 UNIT/1 ML VIAL SUB-Q SCH (22:11)
[2021-06-04] MEDS: METOPROLOL SUCCINATE XL 50 MG TAB PO SCH (22:11)
[2021-06-04] MEDS: FAMOTIDINE 20 MG TAB PO SCH (22:13)
[2021-06-04] MEDS: levETIRAcetam 500 MG TAB PO SCH (22:13)
[2021-06-05] MEDS: HYDROmorphone 1 MG/1 ML INJ IV PRN ×2 (06:01→11:13)
[2021-06-05 06:18] LABS: Calcium 9.4 mg/dL (8.4-10.2)
--- NOTE | 2021-06-05 09:39 | Progress Note ---
Assessment and Plan Assessment and plan: -- Displaced fracture of left femur Current Visit: Yes Status: Acute Orthopedic surgery service consulted in ED. Pain control, supportive care. Ortho evaluated the patient Possible ORIF tomorrow N.p.o. from midnight --Obesity ; BMI 38.6 Current Visit: Yes Status: Acute Patient needs weight reduction dietary modification Exercise as tolerated when medically stable Need outpatient sleep study to rule out obstructive sleep apnea --Paroxysmal atrial fibrillation Current Visit: Yes Status: Acute Rate control, Eliquis held, pending Ortho procedure --Diabetes type II Current Visit: Yes Status: Acute Accu-Chek sliding scale coverage ADA diet Long-acting insulin as needed --Hypertension; moderate control Current Visit: No Status: Chronic Continue current antihypertensives, as needed medications Closely monitor blood pressures and adjust as needed -- CHF (congestive heart failure) EF 45 to 50%[01/2021] Current Visit: Yes Status: Acute Mild systolic dysfunction EF 45 to 50% Well compensated at this time, continue supportive care --DVT prophylaxis Current Visit: Yes Status: Acute SCDs bilateral lower extremities while in bed, Eliquis held, pending Ortho procedure tomorrow -- Advance care planning Current Visit: Yes Status: Acute Closely monitor adjust the management as needed Plan of care reviewed with the patient and her nurse We will closely monitor the patient and adjust management as needed Plan of care reviewed with the patient and her nurse 06/05/2021: I discussed the plan with orthopedic surgeon Dr. Banda Possible ORIF tomorrow Patient is n.p.o. from midnight Eliquis held History Interval history: I have seen and examined the patient in ER awaiting room assignment Patient's chart and medications reviewed Patient with fall sustained femur fracture Evaluated by orthopedic surgeon Scheduled for ORIF procedure tomorrow Hospitalist Physical - Constitutional Vitals: Temp Pulse Resp BP Pulse Ox 98.4 F 100 H 18 166/75 91 06/04/21 18:48 06/05/21 06:35 06/05/21 06:35 06/05/21 06:35 06/05/21 06:35 General appearance: Present: mild distress, obese - EENT Eyes: Present: PERRL, EOM intact - Neck Neck: Present: supple, normal ROM - Respiratory Respiratory effort: normal Respiratory: bilateral: diminished, rhonchi, negative: rales, wheezing - Cardiovascular Rhythm: regular Heart Sounds: Present: S1 & S2 - Extremities Extremities: no ischemia, No edema - Abdominal General gastrointestinal: soft, non-tender, non-distended, normal bowel sounds - Integumentary Integumentary: Present: clear, warm - Psychiatric Psychiatric: appropriate mood/affect, cooperative - Neurologic Neurologic: CNII-XII intact, moves all extremities Results - Labs CBC & Chem 7: 06/04/21 19:00 06/05/21 05:23 Labs: Laboratory Last Values WBC 8.0 K/mm3 (4.5-11.0) 06/04/21 19:00 RBC 4.08 M/mm3 (3.65-5.03) 06/04/21 19:00 Hgb 9.8 gm/dl (10.1-14.3) L 06/04/21 19:00 Hct 32.3 % (30.3-42.9) 06/04/21 19:00 MCV 79 fl (79-97) 06/04/21 19:00 MCH 24 pg (28-32) L 06/04/21 19:00 MCHC 30 % (30-34) 06/04/21 19:00 RDW 17.3 % (13.2-15.2) H 06/04/21 19:00 Plt Count 166 K/mm3 (140-440) 06/04/21 19:00 Lymph % (Auto) 19.6 % (13.4-35.0) 06/04/21 19:00 [place] % (Auto) 9.1 % (0.0-7.3) H 06/04/21 19:00 Eos % (Auto) 1.0 % (0.0-4.3) 06/04/21 19:00 Baso % (Auto) 0.3 % (0.0-1.8) 06/04/21 19:00 Lymph # (Auto) 1.6 K/mm3 (1.2-5.4) 06/04/21 19:00 [place] # (Auto) 0.7 K/mm3 (0.0-0.8) 06/04/21 19:00 Eos # (Auto) 0.1 K/mm3 (0.0-0.4) 06/04/21 19:00 Baso # (Auto) 0.0 K/mm3 (0.0-0.1) 06/04/21 19:00 Seg Neutrophils % 70.0 % (40.0-70.0) 06/04/21 19:00 Seg Neutrophils # 5.6 K/mm3 (1.8-7.7) 06/04/21 19:00 Sodium 143 mmol/L (137-145) 06/05/21 05:23 Potassium 3.2 mmol/L (3.6-5.0) L 06/05/21 05:23 Chloride 105.9 mmol/L (98-107) 06/05/21 05:23 Carbon Dioxide 28 mmol/L (22-30) 06/05/21 05:23 Anion Gap 12 mmol/L 06/05/21 05:23 BUN 40 mg/dL (7-17) H 06/05/21 05:23 Creatinine 1.9 mg/dL (0.6-1.2) H 06/05/21 05:23 Estimated GFR 32 ml/min 06/05/21 05:23 BUN/Creatinine Ratio 21 % 06/05/21 05:23 Glucose 199 mg/dL (65-100) H 06/05/21 05:23 Calcium 9.4 mg/dL (8.4-10.2) 06/05/21 05:23 Active Medications - Current Medications Current Medications: Generic Name Dose Route Start Last Admin Trade Name Freq PRN Reason Stop Dose Admin Acetaminophen 650 mg 06/04/21 20:00 Acetaminophen 325 Mg Tab PO Q4H PRN Pain MILD(1-3)/Fever >100.5/FERNANDEZ Albuterol 2.5 mg 06/04/21 20:00 Albuterol 2.5 Mg/3 Ml Nebu IH Q4HRT PRN Shortness Of Breath Atorvastatin Calcium 80 mg 06/04/21 22:00 06/04/21 22:11 Atorvastatin 40 Mg Tab PO 80 mg QHS TIM Administration Famotidine 20 mg 06/04/21 22:00 06/04/21 22:13 Famotidine 20 Mg Tab PO 20 mg BID TIM Administration Gabapentin 300 mg 06/05/21 19:00 Gabapentin 300 Mg Cap PO QPM ITM Heparin Sodium (Porcine) 5,000 unit 06/04/21 22:00 06/04/21 22:11 Heparin 5,000 Unit/1 Ml Vial SUB-Q 5,000 unit Q12HR TIM Administration Hydromorphone HCl 0.5 mg 06/04/21 20:00 06/05/21 06:01 Hydromorphone 1 Mg/1 Ml Inj IV 0.5 mg Q3H PRN Administration Pain , Severe (7-10) Isosorbide Mononitrate 60 mg 06/05/21 10:00 Isosorbide Mononitrate Er 60 Mg Tab PO QDAY TIM Levetiracetam 500 mg 06/04/21 22:00 06/04/21 22:13 Levetiracetam 500 Mg Tab PO 500 mg BID TIM Administration Metoprolol Succinate 50 mg 06/04/21 22:00 06/04/21 22:11 Metoprolol Succinate Xl 50 Mg Tab PO 50 mg BID TIM Administration Ondansetron HCl 4 mg 06/04/21 20:00 Ondansetron 4 Mg/2 Ml Inj IV Q8H PRN Nausea And Vomiting Oxycodone/Acetaminophen 1 tab 06/04/21 20:00 Oxycodone /Acetaminophen 5-325mg Tab PO Q6H PRN Pain, Moderate (4-6) Sertraline HCl 100 mg 06/05/21 10:00 Sertraline 100 Mg Tab PO QDAY TIM Sodium Chloride 10 ml 06/04/21 22:00 06/04/21 22:49 Sodium Chloride 0.9% 10 Ml Flush Syringe IV 10 ml BID TIM Administration Sodium Chloride 10 ml 06/04/21 20:00 Sodium Chloride 0.9% 10 Ml Flush Syringe IV PRN PRN LINE FLUSH Topiramate 50 mg 06/05/21 10:00 Topiramate Tab 25 Mg Tab PO DAILY TIM Tramadol HCl 50 mg 06/04/21 19:00 06/04/21 22:13 Tramadol 50 Mg Tab PO 50 mg Q6HR PRN Administration PAIN
[2021-06-05] MEDS ORDERED: NON-FORMULARY EACH (Topiramate [Topamax] 50 MG Tablet) PO SCH (10:00)
[2021-06-05] MEDS: FAMOTIDINE 20 MG TAB PO SCH (11:15)
[2021-06-05] MEDS: levETIRAcetam 500 MG TAB PO SCH ×2 (11:15→21:46)
[2021-06-05] MEDS: HEPARIN 5,000 UNIT/1 ML VIAL SUB-Q SCH (11:15)
[2021-06-05] MEDS: METOPROLOL SUCCINATE XL 50 MG TAB PO SCH ×2 (12:32→21:47)
[2021-06-05] MEDS: TOPIRAMATE TAB 25 MG TAB PO SCH (12:32)
[2021-06-05] MEDS: SERTRALINE 100 MG TAB PO SCH (12:33)
--- NOTE | 2021-06-05 17:11 | Consultation ---
History of Present Illness - HPI Consult date: 06/05/21 Consult reason: fracture History of present illness: 65 y/o female with c/o left knee pain and swelling after fall at home recently, states she was getting up from the toilet when she lost balance landing onto lef t side, unable to fully weight bear eventually presented to our ED where xrays revealed a displaced left distal femur fracture. PMH significant for previous left TKR years ago... Past History Past Medical History: atrial fib, diabetes, hypertension, hyperlipidemia, other (See HPI) Past Surgical History: total knee replacement, Other (Carpal tunnel surgery) Social history: single. denies: smoking, alcohol abuse Family history: diabetes, hypertension Medications and Allergies Allergies Allergy/AdvReac Type Severity Reaction Status Date / Time No Known Allergies Allergy Verified 07/12/20 05:04 Home Medications Medication Instructions Recorded Confirmed Last Taken Type Apixaban [Eliquis] 5 mg PO Q12HR #60 tablet 02/14/21 04/13/21 Unknown Rx AtorvaSTATin [Lipitor] 80 mg PO QHS #60 tablet 02/14/21 04/13/21 Unknown Rx Gabapentin 300 mg PO QPM #30 capsule 02/14/21 04/13/21 Unknown Rx Insulin Glargine [Lantus VIAL] 15 units SUB-Q QHS #10 ml 02/14/21 04/13/21 Unknown Rx levETIRAcetam [Keppra TAB] 500 mg PO BID #60 02/14/21 04/13/21 Unknown Rx Aspirin EC [Halfprin EC] 81 mg PO QDAY #30 tablet. 04/15/21 Unknown Rx ISOSORBIDE MONOnitrate [Imdur ER] 60 mg PO QDAY #30 tablet 04/15/21 Unknown Rx Metoprolol Xl [Metoprolol 50 mg PO BID #60 tablet 04/15/21 Unknown Rx SUCCINATE ER TAB] Sertraline [Zoloft] 100 mg PO QDAY #30 04/15/21 Unknown Rx Topiramate [Topamax] 50 mg PO DAILY #30 tablet 04/15/21 Unknown Rx Famotidine [Pepcid] 20 mg PO BID #30 tablet 04/17/21 Unknown Rx traMADoL [Ultram] 50 mg PO Q6HR PRN #10 tablet 04/17/21 Unknown Rx Active Meds: Active Medications Acetaminophen (Acetaminophen 325 Mg Tab) 650 mg PO Q4H PRN PRN Reason: Pain MILD(1-3)/Fever >100.5/FERNANDEZ Albuterol (Albuterol 2.5 Mg/3 Ml Nebu) 2.5 mg IH Q4HRT PRN PRN Reason: Shortness Of Breath Atorvastatin Calcium (Atorvastatin 40 Mg Tab) 80 mg PO QHS [facility] Last Admin: 06/04/21 22:11 Dose: 80 mg Documented by: Famotidine (Famotidine 10 Mg Tab) 10 mg PO BID [facility] Gabapentin (Gabapentin 300 Mg Cap) 300 mg PO QPM [facility] Heparin Sodium (Porcine) (Heparin 5,000 Unit/1 Ml Vial) 5,000 unit SUB-Q Q12HR [facility] Last Admin: 06/05/21 11:15 Dose: 5,000 unit Documented by: Hydromorphone HCl (Hydromorphone 1 Mg/1 Ml Inj) 0.5 mg IV Q3H PRN PRN Reason: Pain , Severe (7-10) Last Admin: 06/05/21 11:13 Dose: 0.5 mg Documented by: Isosorbide Mononitrate (Isosorbide Mononitrate Er 60 Mg Tab) 60 mg PO QDAY [facility] Last Admin: 06/05/21 12:27 Dose: 60 mg Documented by: Levetiracetam (Levetiracetam 500 Mg Tab) 500 mg PO BID [facility] Last Admin: 06/05/21 11:15 Dose: 500 mg Documented by: Metoprolol Succinate (Metoprolol Succinate Xl 50 Mg Tab) 50 mg PO BID [facility] Last Admin: 06/05/21 12:32 Dose: 50 mg Documented by: Ondansetron HCl (Ondansetron 4 Mg/2 Ml Inj) 4 mg IV Q8H PRN PRN Reason: Nausea And Vomiting Oxycodone/Acetaminophen (Oxycodone /Acetaminophen 5-325mg Tab) 1 tab PO Q6H PRN PRN Reason: Pain, Moderate (4-6) Sertraline HCl (Sertraline 100 Mg Tab) 100 mg PO QDAY [facility] Last Admin: 06/05/21 12:33 Dose: Not Given Documented by: Sodium Chloride (Sodium Chloride 0.9% 10 Ml Flush Syringe) 10 ml IV BID [facility] Last Admin: 06/05/21 11:16 Dose: 10 ml Documented by: Sodium Chloride (Sodium Chloride 0.9% 10 Ml Flush Syringe) 10 ml IV PRN PRN PRN Reason: LINE FLUSH Topiramate (Topiramate Tab 25 Mg Tab) 50 mg PO DAILY TIM Last Admin: 06/05/21 12:32 Dose: 50 mg Documented by: Tramadol HCl (Tramadol 50 Mg Tab) 50 mg PO Q6HR PRN PRN Reason: PAIN Last Admin: 06/04/21 22:13 Dose: 50 mg Documented by: Physical Examination - Physical exam Narrative exam: left LE - ++ deformity at distal femur, + shortening, skin intact, compartments soft, good cap refill Eyes: PERRL ENT: Positive: clear oral mucosa Respiratory effort: normal Respiratory: bilateral: CTA Rhythm: regular Heart Sounds: Positive: S1 & S2 General gastrointestinal: Positive: soft, non-tender, non-distended, normal bowel sounds Integumentary: clear, warm, dry Neurologic: Positive: CNII-XII intact, moves all extremities, gait normal. Negative: focal deficits Assessment and Plan periprosthetic fracture left distal femur recommend - ORIF left distal femur
[2021-06-05] MEDS: GABAPENTIN 300 MG CAP PO SCH (20:32)
[2021-06-05] MEDS: FAMOTIDINE 10 MG TAB PO SCH (21:47)
[2021-06-06] MEDS ORDERED: SODIUM CHLORIDE 0.9% IRR 1,500 ML BOTTLE IR ONE
[2021-06-06] MEDS: HYDROmorphone 1 MG/1 ML INJ IV PRN ×2 (02:24→21:23)
--- NOTE | 2021-06-06 10:08 | Electrocardiograph Report ---
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
--- NOTE | 2021-06-06 10:09 | Electrocardiograph Report ---
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 Electronically Signed On 06-06-2021 10:08:46 EDT by Tor Granger
--- NOTE | 2021-06-06 10:32 | Progress Note ---
Assessment and Plan Assessment and plan: -- Displaced fracture of left femur Current Visit: Yes Status: Acute Pain control, supportive care. Ortho evaluated the patient ORIF today. N.p.o. status --Obesity ; BMI 38.6 Current Visit: Yes Status: Acute Patient needs weight reduction dietary modification Exercise as tolerated when medically stable Need outpatient sleep study to rule out obstructive sleep apnea --Paroxysmal atrial fibrillation Current Visit: Yes Status: Acute Rate control, Eliquis held, pending Ortho procedure --Diabetes type II Current Visit: Yes Status: Acute Accu-Chek sliding scale coverage ADA diet Long-acting insulin as needed --Hypertension; moderate control Current Visit: No Status: Chronic Continue current antihypertensives, as needed medications Closely monitor blood pressures and adjust as needed -- CHF (congestive heart failure) EF 45 to 50%[01/2021] Current Visit: Yes Status: Acute Mild systolic dysfunction EF 45 to 50% Well compensated at this time, continue supportive care --DVT prophylaxis Current Visit: Yes Status: Acute SCDs bilateral lower extremities while in bed, Eliquis held, pending Ortho procedure tomorrow -- Advance care planning Current Visit: Yes Status: Acute Closely monitor adjust the management as needed Plan of care reviewed with the patient and her nurse We will closely monitor the patient and adjust management as needed Plan of care reviewed with the patient and her nurse History Interval history: I have seen and examined the patient at the bedside Patient's chart and medications reviewed Left displaced femur fracture, already scheduled for ORIF today Patient complains of some pain Patient n.p.o. status Hospitalist Physical - Constitutional Vitals: Temp Pulse Resp BP Pulse Ox 98.6 F 102 H 18 153/71 97 06/06/21 08:25 06/06/21 08:25 06/06/21 08:25 06/06/21 08:25 06/06/21 08:25 General appearance: Present: mild distress, obese - EENT Eyes: Present: PERRL, EOM intact - Neck Neck: Present: supple, normal ROM - Respiratory Respiratory effort: normal Respiratory: bilateral: diminished, negative: rales, rhonchi, wheezing - Cardiovascular Rhythm: regular Heart Sounds: Present: S1 & S2 - Extremities Extremities: no ischemia, No edema, abnormal (Displaced left femur fracture) - Abdominal General gastrointestinal: soft, non-tender, non-distended, normal bowel sounds - Integumentary Integumentary: Present: clear, warm - Psychiatric Psychiatric: appropriate mood/affect, cooperative - Neurologic Neurologic: moves all extremities Results - Labs CBC & Chem 7: 06/04/21 19:00 06/05/21 05:23 Labs: Laboratory Last Values WBC 8.0 K/mm3 (4.5-11.0) 06/04/21 19:00 RBC 4.08 M/mm3 (3.65-5.03) 06/04/21 19:00 Hgb 9.8 gm/dl (10.1-14.3) L 06/04/21 19:00 Hct 32.3 % (30.3-42.9) 06/04/21 19:00 MCV 79 fl (79-97) 06/04/21 19:00 MCH 24 pg (28-32) L 06/04/21 19:00 MCHC 30 % (30-34) 06/04/21 19:00 RDW 17.3 % (13.2-15.2) H 06/04/21 19:00 Plt Count 166 K/mm3 (140-440) 06/04/21 19:00 Lymph % (Auto) 19.6 % (13.4-35.0) 06/04/21 19:00 [place] % (Auto) 9.1 % (0.0-7.3) H 06/04/21 19:00 Eos % (Auto) 1.0 % (0.0-4.3) 06/04/21 19:00 Baso % (Auto) 0.3 % (0.0-1.8) 06/04/21 19:00 Lymph # (Auto) 1.6 K/mm3 (1.2-5.4) 06/04/21 19:00 [place] # (Auto) 0.7 K/mm3 (0.0-0.8) 06/04/21 19:00 Eos # (Auto) 0.1 K/mm3 (0.0-0.4) 06/04/21 19:00 Baso # (Auto) 0.0 K/mm3 (0.0-0.1) 06/04/21 19:00 Seg Neutrophils % 70.0 % (40.0-70.0) 06/04/21 19:00 Seg Neutrophils # 5.6 K/mm3 (1.8-7.7) 06/04/21 19:00 Sodium 143 mmol/L (137-145) 06/05/21 05:23 Potassium 3.2 mmol/L (3.6-5.0) L 06/05/21 05:23 Chloride 105.9 mmol/L (98-107) 06/05/21 05:23 Carbon Dioxide 28 mmol/L (22-30) 06/05/21 05:23 Anion Gap 12 mmol/L 06/05/21 05:23 BUN 40 mg/dL (7-17) H 06/05/21 05:23 Creatinine 1.9 mg/dL (0.6-1.2) H 06/05/21 05:23 Estimated GFR 32 ml/min 06/05/21 05:23 BUN/Creatinine Ratio 21 % 06/05/21 05:23 Glucose 199 mg/dL (65-100) H 06/05/21 05:23 POC Glucose 151 mg/dL (70-105) H 06/06/21 05:21 Calcium 9.4 mg/dL (8.4-10.2) 06/05/21 05:23 Tejeda/IV: Voiding Method External Female Catheter Active Medications - Current Medications Current Medications: Generic Name Dose Route Start Last Admin Trade Name Freq PRN Reason Stop Dose Admin Acetaminophen 650 mg 06/04/21 20:00 Acetaminophen 325 Mg Tab PO Q4H PRN Pain MILD(1-3)/Fever >100.5/FERNANDEZ Albuterol 2.5 mg 06/04/21 20:00 Albuterol 2.5 Mg/3 Ml Nebu IH Q4HRT PRN Shortness Of Breath Atorvastatin Calcium 80 mg 06/04/21 22:00 06/05/21 21:48 Atorvastatin 40 Mg Tab PO 80 mg QHS TIM Administration Famotidine 10 mg 06/05/21 22:00 06/05/21 21:47 Famotidine 10 Mg Tab PO 10 mg BID TIM Administration Gabapentin 300 mg 06/05/21 19:00 06/05/21 20:32 Gabapentin 300 Mg Cap PO 300 mg QPM TIM Administration Hydromorphone HCl 0.5 mg 06/04/21 20:00 06/06/21 02:24 Hydromorphone 1 Mg/1 Ml Inj IV 0.5 mg Q3H PRN Administration Pain , Severe (7-10) Isosorbide Mononitrate 60 mg 06/05/21 10:00 06/05/21 12:27 Isosorbide Mononitrate Er 60 Mg Tab PO 60 mg QDAY TIM Administration Levetiracetam 500 mg 06/04/21 22:00 06/05/21 21:46 Levetiracetam 500 Mg Tab PO 500 mg BID TIM Administration Metoprolol Succinate 50 mg 06/04/21 22:00 06/05/21 21:47 Metoprolol Succinate Xl 50 Mg Tab PO 50 mg BID TIM Administration Ondansetron HCl 4 mg 06/04/21 20:00 Ondansetron 4 Mg/2 Ml Inj IV Q8H PRN Nausea And Vomiting Oxycodone/Acetaminophen 1 tab 06/04/21 20:00 06/05/21 21:50 Oxycodone /Acetaminophen 5-325mg Tab PO 1 tab Q6H PRN Administration Pain, Moderate (4-6) Sertraline HCl 100 mg 06/05/21 10:00 06/05/21 12:33 Sertraline 100 Mg Tab PO Not Given QDAY TIM Sodium Chloride 10 ml 06/04/21 22:00 06/05/21 21:47 Sodium Chloride 0.9% 10 Ml Flush Syringe IV 10 ml BID TIM Administration Sodium Chloride 10 ml 06/04/21 20:00 Sodium Chloride 0.9% 10 Ml Flush Syringe IV PRN PRN LINE FLUSH Topiramate 50 mg 06/05/21 10:00 06/05/21 12:32 Topiramate Tab 25 Mg Tab PO 50 mg DAILY TIM Administration Tramadol HCl 50 mg 06/04/21 19:00 06/04/21 22:13 Tramadol 50 Mg Tab PO 50 mg Q6HR PRN Administration PAIN
[2021-06-06] MEDS ORDERED: NEOMY 40 MG/POLYMYXIN B 200,000 UNITS/ML (GU) AMPULE IR ONE ×2 (10:48)
[2021-06-06] MEDS ORDERED: LACTATED RINGERS 1,000 ML ONE (10:59)
--- NOTE | 2021-06-06 11:21 | Anesthesia Day of Surgery ---
Anesthesia Day of Surgery - Day of Surgery Patient Examined: Yes Patient H&P Reviewed: Yes Patient is NPO: Yes Beta Blockers: Yes
--- NOTE | 2021-06-06 11:26 | Anesthesia Consultation ---
Anesthesia Consult and Med Hx Date of service: 06/06/21 - Airway Anesthetic Teeth Evaluation: Caps ROM Head & Neck: Adequate Mental/Hyoid Distance: Adequate Mallampati Class: Class III Intubation Access Assessment: Probably Good - Pre-Operative Health Status ASA Pre-Surgery Classification: ASA3 Proposed Anesthetic Plan: General Nerve Block: Femoral - Pulmonary Hx Asthma: No COPD: No Hx Pneumonia: Yes Hx Sleep Apnea: Yes - Cardiovascular System Hx Hypertension: Yes (Nonischemic cardiomyopathy with preserved EF) Hx Coronary Artery Disease: Yes Hx Heart Attack/AMI: Yes (EF .45) Hx Angina: No Hx Cardia Arrhythmia: Yes (AFib) - Central Nervous System Hx Seizures: Yes CVA: Yes Hx Psychiatric Problems: No - Endocrine Hx Renal Disease: Yes (VAL. Pyelonephritis. Hydronephrosis) Hx End Stage Renal Disease: No (Cr 1.9) Hx Non-Insulin Dependent Diabetes: Yes - Hematic Hx Anemia: Yes (9.8/32.3) Hx Sickle Cell Disease: No - Other Systems Hx Alcohol Use: No Hx Cancer: No Hx Obesity: Yes - Additional Comments Anesthesia Medical History Comments: Echocardiogram 07/13/2020 reviewed: LVEF 55 to 60%. LV normal size. Mild to moderate LVH. LVSF normal. RVSF normal. Right atrium mildly dilated. Evidence of atrial septal aneurysm. Mild TR, RVSP 37 mmHg. Mild ID. Patient reports pain hospitalized in January 2020 with AMI and CVA. Lexiscan MPI stress test 07/17/2020 is negative for reversible ischemia, EF 62%
[2021-06-06] MEDS ORDERED: HYDROmorphone 1 MG/1 ML INJ IV PRN ×2 (11:28)
[2021-06-06] MEDS ORDERED: ONDANSETRON 4 MG/2 ML INJ IV PRN (11:28)
[2021-06-06] MEDS ORDERED: MAGNESIUM OXIDE 400 MG TAB PO NR (11:29)
[2021-06-06] MEDS ORDERED: ACETAMINOPHEN 325 MG/10.15 ML ORAL LIQD UNIT DOSE ONE (11:33)
[2021-06-06] MEDS: METOPROLOL SUCCINATE XL 50 MG TAB PO SCH ×2 (11:38→21:22)
[2021-06-06] MEDS: LACTATED RINGERS 1,000 ML IV SCH ×2 (11:38→23:05)
[2021-06-06] MEDS: FAMOTIDINE 10 MG TAB PO SCH ×2 (11:38→21:24)
[2021-06-06] MEDS: levETIRAcetam 500 MG TAB PO SCH ×2 (11:38→21:24)
[2021-06-06] MEDS ORDERED: BUPIVACAINE/PF (0.5%) 5 MG/1 ML 30 ML VIAL INFILTRATI ONE (11:39)
[2021-06-06] MEDS ORDERED: ACETAMINOPHEN 325 MG TAB PO ONE (12:00)
[2021-06-06] MEDS ORDERED: fentaNYL 100 MCG/2 ML INJ IV NR (12:00)
[2021-06-06] MEDS ORDERED: MIDAZOLAM 2 MG/2 ML INJ IV NR (12:00)
[2021-06-06] MEDS ORDERED: propofoL 200 MG/20 ML VIAL IV ONE (12:19)
[2021-06-06] MEDS ORDERED: LIDOCAINE MPF (2%) 20 MG/1 ML VIAL 5 ML ONE (12:20)
[2021-06-06] MEDS ORDERED: ROCURONIUM 50 MG/5 ML INJ IV ONE (12:20)
[2021-06-06] MEDS ORDERED: ACETAMINOPHEN 325 MG/10.15 ML ORAL LIQD UNIT DOSE PO ONE (12:37)
[2021-06-06] MEDS ORDERED: ETOMIDATE 20 MG/10 ML INJ IV ONE (12:42)
[2021-06-06] MEDS ORDERED: ePHEDrine SULFATE 50 MG/1 ML INJ ONE (13:01)
[2021-06-06] MEDS ORDERED: fentaNYL 100 MCG/2 ML INJ ONE (13:09)
[2021-06-06] MEDS ORDERED: ceFAZolin/Water 2 GM/20 ML 2 GM/20 ML SYRINGE IV NR (14:00)
[2021-06-06] MEDS ORDERED: ONDANSETRON 4 MG/2 ML INJ ONE (14:01)
[2021-06-06] MEDS ORDERED: dexAMETHasone 20 MG/5 ML VIAL ONE (14:01)
[2021-06-06] MEDS ORDERED: METOPROLOL TARTRATE 5 MG/5 ML INJ IV ONE ×3 (14:01→16:26)
[2021-06-06] MEDS ORDERED: HYDROmorphone 1 MG/1 ML INJ ONE (15:08)
--- NOTE | 2021-06-06 15:24 | Procedure Note ---
Date of procedure: 06/06/21 Pre-op diagnosis: Displaced left distal femur fracture Post-op diagnosis: same Procedure: Open reduction internal fixation left distal femur Procedure Patient was brought to the OR after receiving a femoral nerve block in preop holding she was then placed on the OR table fine position following induction with MAC anesthesia the patient's left lower extremity was prepped and draped in the usual sterile manner. A timeout procedure was done to identify the patient and the correct operative site. Using a lateral incision beginning at Sondra's tubercle and extending proximally along the distal femur this is taken down sharply through skin subcu the iliotibial band was incised in line with the skin incision which brought us down to the fracture site here patient was noted to have a transverse slightly comminuted distal femur fracture with an intact femoral prosthesis next the fracture fragments were manipulated into a more reduced position and held in place via temporary K wire fixation next a a six hole left lateral distal femoral locking plate was applied and secured by way of screws of various lengths AP and lateral views were obtained showing good reduction of the fracture and placement of our hardware due to the comminution noted at the fracture site additional bone graft material was applied allografting into the fracture defect following this the wound was then copiously irrigated the iliotibial band was repaired followed by closure of the deep subcu skin routine postop dressings were applied the patient tolerated the procedure there were no complications she was sent to postanesthesia recovery in a stable condition Anesthesia: MAC, regional Surgeon: DANIELE WEBB (Lei Duarte, 1st assist) Estimated blood loss: 50-100ml Pathology: none Condition: stable Disposition: PACU
[2021-06-06] MEDS ORDERED: SUCCINYLCHOLINE CHLORIDE 200 MG/10 ML INJ MDV ONE (15:51)
[2021-06-06] MEDS ORDERED: KETOROLAC 30 MG/1 ML INJ IV PRN (16:00)
[2021-06-06] MEDS ORDERED: MORPHINE 4 MG/1 ML INJ IV PRN (16:00)
[2021-06-06] MEDS ORDERED: PHENYLEPHRINE/NS 1,000 MCG/10 ML SYRINGE (OR USE) IV ONE (16:13)
--- NOTE | 2021-06-06 16:43 | XRay Report ---
Left knee 3 views INDICATION: Surgery FINDINGS: 11 seconds of fluoroscopy time was used for ORIF left distal femur. Hardware appears satisf actory in appearance and intact Signer Name: Shadi Cohen MD Signed: 06/06/2021 4:39 PM Workstation Name: [id number]
--- NOTE | 2021-06-06 16:52 | Post Anesthesia Evaluation ---
- Post Anesthesia Evaluation Patient Participated: Yes Airway Patent: Yes Stable Respiratory Function: Yes Nausea/Vomiting: No Temp > 96.8F: Yes Pain Manageable: Yes Adequeate Hydration: Yes Anesthesia Complications: No Block Receding Appropriately: Yes Patient on Ventilator: No
--- NOTE | 2021-06-06 18:37 | Event Note ---
Date: 06/06/21 Patient with displaced left distal femur fracture, evaluated by Dr. Banda orthopedic surgeon Patient underwent open reduction internal fixation of the left distal femur, patient tolerated the procedure well Continue postop care, IV fluids, pain medications, diet as tolerated Physical therapy, Occupational Therapy Discharge planning per case management We will closely monitor the patient and adjust the management as needed plan of care reviewed with the patient's nurse and the patient
[2021-06-06] MEDS: TOPIRAMATE TAB 25 MG TAB PO SCH (18:50)
[2021-06-06] MEDS: SERTRALINE 100 MG TAB PO SCH (18:50)
[2021-06-06] MEDS: GABAPENTIN 300 MG CAP PO SCH (18:51)
[2021-06-06] MEDS: ENOXAPARIN 40 MG/0.4 ML INJ SUB-Q SCH (18:51)
[2021-06-06] MEDS: METOPROLOL TARTRATE 5 MG/5 ML INJ IV SCH (20:35)
[2021-06-06] MEDS: INSULIN LISPRO 100 UNIT/ML SUB-Q SCH (23:01)
[2021-06-07] MEDS: METOPROLOL TARTRATE 5 MG/5 ML INJ IV SCH ×6 (00:45→16:30)
[2021-06-07] MEDS: oxyCODONE /ACETAMINOPHEN 5-325MG TAB PO PRN (04:37)
[2021-06-07] MEDS: ACETAMINOPHEN 325 MG TAB PO PRN ×3 (07:38→22:08)
[2021-06-07] MEDS: INSULIN LISPRO 100 UNIT/ML SUB-Q SCH ×4 (09:34→22:09)
--- NOTE | 2021-06-07 10:40 | Progress Note ---
Assessment and Plan Assessment and plan: --Febrile illness; Current Visit: Yes Status: Acute Check blood cultures, urine cultures, chest x-ray Empiric antibiotics with Rocephin and Zithromax [place] PCR test, Consider ID consultation if needed Antibiotics -- Displaced fracture of left femur Current Visit: Yes Status: Acute Pain control, supportive care. Ortho evaluated the patient s/p ORIF continue postop care Physical therapy occupational therapy --s/p fall mechanical today Current Visit: Yes Status: Acute Fall precautions, x-ray left knee post fall no abnormality PT, OT supportive care --Obesity ; BMI 38.6 Current Visit: Yes Status: Acute Patient needs weight reduction dietary modification Exercise as tolerated when medically stable Need outpatient sleep study to rule out obstructive sleep apnea --Paroxysmal atrial fibrillation Current Visit: Yes Status: Acute Rate control, Eliquis held, due to ORIF surgery Resume when cleared by Ortho --Diabetes type II Current Visit: Yes Status: Acute Accu-Chek sliding scale coverage ADA diet Long-acting insulin as needed --Hypertension; moderate control Current Visit: No Status: Chronic Continue current antihypertensives, as needed medications Closely monitor blood pressures and adjust as needed -- CHF (congestive heart failure) EF 45 to 50%[01/2021] Current Visit: Yes Status: Acute Mild systolic dysfunction EF 45 to 50% Well compensated at this time, continue supportive care --DVT prophylaxis Current Visit: Yes Status: Acute SCDs bilateral lower extremities while in bed, Eliquis held, pending Ortho procedure tomorrow -- Advance care planning Current Visit: Yes Status: Acute Closely monitor adjust the management as needed Plan of care reviewed with the patient and her nurse We will closely monitor the patient and adjust management as needed Plan of care reviewed with the patient and her nurse Brief history; 65-year-old morbidly obese female patient with significant past medical history of hypertension diabetes dyslipidemia CVA my congestive heart failure paroxysmal A. fib on Eliquis seizure disorder was admitted through emergency room with history of fall with displaced left femur fracture, orthopedic evaluated the patient and patient subsequently underwent ORIF procedure, today POD 1 Today patient fell on the floor, febrile with T-max of 102.9, chest x-ray no acute abnormality, empiric antibiotics started, pancultures sent, consult ID if needed 06/07/21; continue empiric antibiotics Follow cultures, follow orthopedic recommendations consider ID consult if needed follow [place] PCR test History Interval history: I have seen and examined the patient at the bedside Patient's chart and medications reviewed Patient is febrile T-max of 102.9 F last 24 hours Patient is in mild distress And she also had a fall with mild left knee pain Hospitalist Physical - Constitutional Vitals: Temp Pulse Resp BP Pulse Ox 100.1 F H 108 H 18 123/76 100 06/07/21 07:29 06/07/21 07:29 06/07/21 07:29 06/07/21 07:29 06/07/21 07:29 General appearance: Present: mild distress, obese (Morbidly obese), other (Febrile) - EENT Eyes: Present: PERRL, EOM intact - Neck Neck: Present: supple, normal ROM - Respiratory Respiratory effort: normal Respiratory: bilateral: diminished, rhonchi, negative: rales, wheezing - Cardiovascular Rhythm: regular Heart Sounds: Present: S1 & S2 - Extremities Extremities: no ischemia, No edema - Abdominal General gastrointestinal: soft, non-tender, non-distended, normal bowel sounds - Integumentary Integumentary: Present: clear, warm - Psychiatric Psychiatric: appropriate mood/affect, cooperative - Neurologic Neurologic: CNII-XII intact, moves all extremities Results - Labs CBC & Chem 7: 06/04/21 19:00 06/05/21 05:23 Labs: Laboratory Last Values WBC 8.0 K/mm3 (4.5-11.0) 06/04/21 19:00 RBC 4.08 M/mm3 (3.65-5.03) 06/04/21 19:00 Hgb 9.8 gm/dl (10.1-14.3) L 06/04/21 19:00 Hct 32.3 % (30.3-42.9) 06/04/21 19:00 MCV 79 fl (79-97) 06/04/21 19:00 MCH 24 pg (28-32) L 06/04/21 19:00 MCHC 30 % (30-34) 06/04/21 19:00 RDW 17.3 % (13.2-15.2) H 06/04/21 19:00 Plt Count 166 K/mm3 (140-440) 06/04/21 19:00 Lymph % (Auto) 19.6 % (13.4-35.0) 06/04/21 19:00 [place] % (Auto) 9.1 % (0.0-7.3) H 06/04/21 19:00 Eos % (Auto) 1.0 % (0.0-4.3) 06/04/21 19:00 Baso % (Auto) 0.3 % (0.0-1.8) 06/04/21 19:00 Lymph # (Auto) 1.6 K/mm3 (1.2-5.4) 06/04/21 19:00 [place] # (Auto) 0.7 K/mm3 (0.0-0.8) 06/04/21 19:00 Eos # (Auto) 0.1 K/mm3 (0.0-0.4) 06/04/21 19:00 Baso # (Auto) 0.0 K/mm3 (0.0-0.1) 06/04/21 19:00 Seg Neutrophils % 70.0 % (40.0-70.0) 06/04/21 19:00 Seg Neutrophils # 5.6 K/mm3 (1.8-7.7) 06/04/21 19:00 Sodium 143 mmol/L (137-145) 06/05/21 05:23 Potassium 3.2 mmol/L (3.6-5.0) L 06/05/21 05:23 Chloride 105.9 mmol/L (98-107) 06/05/21 05:23 Carbon Dioxide 28 mmol/L (22-30) 06/05/21 05:23 Anion Gap 12 mmol/L 06/05/21 05:23 BUN 40 mg/dL (7-17) H 06/05/21 05:23 Creatinine 1.9 mg/dL (0.6-1.2) H 06/05/21 05:23 Estimated GFR 32 ml/min 06/05/21 05:23 BUN/Creatinine Ratio 21 % 06/05/21 05:23 Glucose 199 mg/dL (65-100) H 06/05/21 05:23 POC Glucose 175 mg/dL (70-105) H 06/07/21 07:32 Calcium 9.4 mg/dL (8.4-10.2) 06/05/21 05:23 Tejeda/IV: Voiding Method Incontinent Active Medications - Current Medications Current Medications: Generic Name Dose Route Start Last Admin Trade Name Freq PRN Reason Stop Dose Admin Acetaminophen 650 mg 06/04/21 20:00 06/07/21 07:38 Acetaminophen 325 Mg Tab PO 650 mg Q4H PRN Administration Pain MILD(1-3)/Fever >100.5/FERNANDEZ Albuterol 2.5 mg 06/04/21 20:00 Albuterol 2.5 Mg/3 Ml Nebu IH Q4HRT PRN Shortness Of Breath Atorvastatin Calcium 80 mg 06/04/21 22:00 06/06/21 21:23 Atorvastatin 40 Mg Tab PO 80 mg QHS TIM Administration Enoxaparin Sodium 40 mg 06/06/21 17:00 06/06/21 18:51 Enoxaparin 40 Mg/0.4 Ml Inj SUB-Q 40 mg QDAY TIM Administration Famotidine 10 mg 06/05/21 22:00 06/06/21 21:24 Famotidine 10 Mg Tab PO 10 mg BID TIM Administration Gabapentin 300 mg 06/05/21 19:00 06/06/21 18:51 Gabapentin 300 Mg Cap PO 300 mg QPM TIM Administration Hydromorphone HCl 0.5 mg 06/04/21 20:00 06/06/21 21:23 Hydromorphone 1 Mg/1 Ml Inj IV 0.5 mg Q3H PRN Administration Pain , Severe (7-10) Ceftriaxone Sodium 2 gm in 100 mls @ 200 mls/hr 06/07/21 11:00 Rocephin/Ns 2 Gm/100 Ml IV Q24H [facility] Protocol Azithromycin 500 mg in 250 mls @ 250 mls/hr 06/07/21 11:00 Zithromax/Ns IV Q24H [facility] Insulin Human Lispro 0 unit 06/07/21 07:30 06/07/21 09:34 Insulin Lispro 100 Unit/Ml SUB-Q 2 unit ACHS TIM Administration Protocol Isosorbide Mononitrate 60 mg 06/05/21 10:00 06/06/21 11:38 Isosorbide Mononitrate Er 60 Mg Tab PO 60 mg QDAY TIM Administration Ketorolac Tromethamine 15 mg 06/06/21 16:00 Ketorolac 30 Mg/1 Ml Inj IV 06/11/21 15:59 Q6H PRN Pain, Moderate (4-6) Levetiracetam 500 mg 06/04/21 22:00 06/06/21 21:24 Levetiracetam 500 Mg Tab PO 500 mg BID TIM Administration Metoprolol Succinate 50 mg 06/04/21 22:00 06/06/21 21:22 Metoprolol Succinate Xl 50 Mg Tab PO 50 mg BID TIM Administration Metoprolol Tartrate 2.5 mg 06/06/21 20:00 06/07/21 04:52 Metoprolol Tartrate 5 Mg/5 Ml Inj IV 2.5 mg Q4H TIM Administration Morphine Sulfate 4 mg 06/06/21 16:00 Morphine 4 Mg/1 Ml Inj IV Q4H PRN Pain , Severe (7-10) Ondansetron HCl 4 mg 06/04/21 20:00 Ondansetron 4 Mg/2 Ml Inj IV Q8H PRN Nausea And Vomiting Oxycodone/Acetaminophen 1 tab 06/06/21 16:00 06/07/21 04:37 Oxycodone /Acetaminophen 5-325mg Tab PO 1 tab Q6H PRN Administration Pain, Moderate (4-6) Sertraline HCl 100 mg 06/05/21 10:00 06/06/21 18:50 Sertraline 100 Mg Tab PO Not Given QDAY TIM Sodium Chloride 10 ml 06/04/21 22:00 06/06/21 22:45 Sodium Chloride 0.9% 10 Ml Flush Syringe IV 10 ml BID TIM Administration Sodium Chloride 10 ml 06/06/21 16:00 Sodium Chloride 0.9% 10 Ml Flush Syringe IV 06/26/21 15:59 PRN NR Topiramate 50 mg 06/05/21 10:00 06/06/21 18:50 Topiramate Tab 25 Mg Tab PO Not Given DAILY TIM Tramadol HCl 50 mg 06/04/21 19:00 06/04/21 22:13 Tramadol 50 Mg Tab PO 50 mg Q6HR PRN Administration PAIN
--- NOTE | 2021-06-07 14:03 | XRay Report ---
CHEST 1 VIEW INDICATION: fall/injury. COMPARISON: 04/17/2021 FINDINGS: Support devices: None. Heart: Stable mild cardiomegaly. Lungs/Pleura: No acute air space or interstitial disease. Additional findings: None. IMPRESSION: No acute findings. LEFT KNEE 3 VIEWS INDICATION: fall/injury. COMPARISON: None. IMPRESSION: There is been previous internal fixation of the distal femur as well as left knee arthro plasty. There appear to be heterotopic bone calcifications at the level of the distal femur but no ob vious fracture. Internal hardware obscures most of the distal femur. There is mild diffuse soft tiss ue swelling or edema. Signer Name: Tyree Torres Jr, MD Signed: 06/07/2021 1:59 PM Workstation Name: [id number]
[2021-06-07] MEDS: levETIRAcetam 500 MG TAB PO SCH ×2 (14:12→22:08)
[2021-06-07] MEDS: FAMOTIDINE 10 MG TAB PO SCH ×2 (14:13→22:07)
[2021-06-07] MEDS: SERTRALINE 100 MG TAB PO SCH (14:13)
[2021-06-07] MEDS: METOPROLOL SUCCINATE XL 50 MG TAB PO SCH ×2 (14:14→22:07)
[2021-06-07] MEDS: ENOXAPARIN 40 MG/0.4 ML INJ SUB-Q SCH (14:16)
[2021-06-07] MEDS: cefTRIAXone/NS 2 GM/100 ML 2 GM/100 ML BAG IV SCH (14:17)
--- NOTE | 2021-06-07 15:38 | Progress Note ---
Assessment and Plan s/p ORIF left distal femur, post op day 1 continue PT and observation Subjective Date of service: 06/07/21 Interval history: resting comfortably in bed, no major c/o's noted, still running temp... Objective Vital signs: Vital Signs - 12hr 06/07/21 06/07/21 06/07/21 04:52 05:52 06:15 Temperature 101.1 F H 102.9 F H Pulse Rate 142 H 132 H Respiratory 20 Rate Blood Pressure 127/64 Blood Pressure [Left] O2 Sat by Pulse 97 Oximetry 06/07/21 06/07/21 06/07/21 07:29 08:00 10:00 Temperature 100.1 F H Pulse Rate 108 H 108 H Respiratory 18 Rate Blood Pressure 123/76 123/76 Blood Pressure [Left] O2 Sat by Pulse 100 98 Oximetry 06/07/21 06/07/21 06/07/21 11:00 12:15 13:24 Temperature 99.2 F 99.3 F Pulse Rate 108 H 100 H 144 H Respiratory 18 20 Rate Blood Pressure 146/84 Blood Pressure 126/68 [Left] O2 Sat by Pulse 98 97 Oximetry 06/07/21 06/07/21 06/07/21 14:12 14:14 14:16 Temperature Pulse Rate 140 H 140 H Respiratory Rate Blood Pressure 146/84 146/84 146/84 Blood Pressure [Left] O2 Sat by Pulse Oximetry Incision: clean and dry Weight bearing status: partial - Labs CBC & BMP: 06/04/21 19:00 06/05/21 05:23 Labs: Abnormal lab results 06/06/21 06/07/21 06/07/21 Range/Units 22:30 07:32 12:10 POC Glucose 227 H 175 H 180 H (70-105) mg/dL
[2021-06-07] MEDS: AZITHROMYCIN/NS 500 MG/250 ML 500 MG/250 ML BAG IV SCH (16:32)
[2021-06-07] MEDS: TOPIRAMATE TAB 25 MG TAB PO SCH (16:33)
[2021-06-07] MEDS: GABAPENTIN 300 MG CAP PO SCH (20:12)
[2021-06-07] MEDS ORDERED: INSULIN GLARGINE 100 UNITS/ML SUB-Q SCH (22:00)
--- NOTE | 2021-06-08 08:28 | Progress Note ---
Assessment and Plan Assessment and plan: --Febrile illness; Current Visit: Yes Status: Acute Check blood cultures, urine cultures, chest x-ray Empiric antibiotics with Rocephin and Zithromax [place] PCR test, Consider ID consultation if needed Antibiotics -- Displaced fracture of left femur Current Visit: Yes Status: Acute Pain control, supportive care. Ortho evaluated the patient s/p ORIF continue postop care Physical therapy occupational therapy called next of kin patient's older sister Ms. Shekhar Hill at [phone] and updated her about patient's condition, tests and reports ,surgical procedure, her fall this afternoon, treatment and discharge planning and encouraged her to call and discuss with the case management for any special requests and needs she may have for her sister. She was appreciative of my call and I encouraged her to call back if she has any new questions or concerns. --s/p fall mechanical today Current Visit: Yes Status: Acute Fall precautions, x-ray left knee post fall no abnormality PT, OT supportive care --Obesity ; BMI 38.6 Current Visit: Yes Status: Acute Patient needs weight reduction dietary modification Exercise as tolerated when medically stable Need outpatient sleep study to rule out obstructive sleep apnea --Paroxysmal atrial fibrillation Current Visit: Yes Status: Acute Rate control, Eliquis held, due to ORIF surgery Resume when cleared by Ortho --Diabetes type II Current Visit: Yes Status: Acute Accu-Chek sliding scale coverage ADA diet Long-acting insulin as needed --Hypertension; moderate control Current Visit: No Status: Chronic Continue current antihypertensives, as needed medications Closely monitor blood pressures and adjust as needed -- CHF (congestive heart failure) EF 45 to 50%[01/2021] Current Visit: Yes Status: Acute Mild systolic dysfunction EF 45 to 50% Well compensated at this time, continue supportive care --DVT prophylaxis Current Visit: Yes Status: Acute SCDs bilateral lower extremities while in bed, Eliquis held, pending Ortho procedure tomorrow -- Advance care planning Current Visit: Yes Status: Acute Closely monitor adjust the management as needed Plan of care reviewed with the patient and her nurse We will closely monitor the patient and adjust management as needed Plan of care reviewed with the patient and her nurse Brief history; 65-year-old morbidly obese female patient with significant past medical history of hypertension diabetes dyslipidemia CVA my congestive heart failure paroxysmal A. fib on Eliquis seizure disorder was admitted through emergency room with history of fall with displaced left femur fracture, orthopedic evaluated the patient and patient subsequently underwent ORIF procedure, today POD 1 Today patient fell on the floor, febrile with T-max of 102.9, chest x-ray no acute abnormality, empiric antibiotics started, pancultures sent, consult ID if needed 06/07/21; continue empiric antibiotics Follow cultures, follow orthopedic recommendations consider ID consult if needed follow [place] PCR test called next of kin patient's older sister Ms. Shekhar Hill at [phone] and updated her about patient's condition, tests and reports ,surgical procedure, her fall this afternoon, treatment and discharge planning and encouraged her to call and discuss with the case management for any special requests and needs she may have for her sister. She was appreciative of my call and I encouraged her to call back if she has any new questions or concerns. 06/08: Continue supportive care and PT/OT, POD 2. Clear for discharge in 24 to 48hr if no further fever Patient also with CKD AT BASELINE. Discontinue toradol. use other pain meds, possible ultram Awaiting repeat studies today Adjust insulin for Better BP control ID consult pending History Interval history: Patient seen and examined no acute distress at this time resting comfortably. No pain at surgical site Hospitalist Physical - Physical exam Narrative exam: General appearance: Present: mild distress, obese (Morbidly obese), other (Febrile) - EENT Eyes: Present: PERRL, EOM intact - Neck Neck: Present: supple, normal ROM - Respiratory Respiratory effort: normal Respiratory: bilateral: diminished, rhonchi, negative: rales, wheezing - Cardiovascular Rhythm: regular Heart Sounds: Present: S1 & S2 irregularly irregular with mild tachycardia - Extremities Extremities: no ischemia, No edema - Abdominal General gastrointestinal: soft, non-tender, non-distended, normal bowel sounds - Integumentary Integumentary: Present: clear, warm - Psychiatric Psychiatric: appropriate mood/affect, cooperative - Neurologic Neurologic: CNII-XII intact, moves all extremities - Constitutional Vitals: Temp Pulse Resp BP Pulse Ox 99.3 F 114 H 2 L 155/99 91 06/08/21 04:25 06/08/21 04:25 06/08/21 04:25 06/08/21 04:25 06/08/21 04:25 General appearance: Present: mild distress, obese (Morbidly obese), other (Febri le) Results - Labs CBC & Chem 7: 06/08/21 13:45 06/08/21 13:45 Labs: Laboratory Last Values WBC 8.0 K/mm3 (4.5-11.0) 06/04/21 19:00 RBC 4.08 M/mm3 (3.65-5.03) 06/04/21 19:00 Hgb 9.8 gm/dl (10.1-14.3) L 06/04/21 19:00 Hct 32.3 % (30.3-42.9) 06/04/21 19:00 MCV 79 fl (79-97) 06/04/21 19:00 MCH 24 pg (28-32) L 06/04/21 19:00 MCHC 30 % (30-34) 06/04/21 19:00 RDW 17.3 % (13.2-15.2) H 06/04/21 19:00 Plt Count 166 K/mm3 (140-440) 06/04/21 19:00 Lymph % (Auto) 19.6 % (13.4-35.0) 06/04/21 19:00 [place] % (Auto) 9.1 % (0.0-7.3) H 06/04/21 19:00 Eos % (Auto) 1.0 % (0.0-4.3) 06/04/21 19:00 Baso % (Auto) 0.3 % (0.0-1.8) 06/04/21 19:00 Lymph # (Auto) 1.6 K/mm3 (1.2-5.4) 06/04/21 19:00 [place] # (Auto) 0.7 K/mm3 (0.0-0.8) 06/04/21 19:00 Eos # (Auto) 0.1 K/mm3 (0.0-0.4) 06/04/21 19:00 Baso # (Auto) 0.0 K/mm3 (0.0-0.1) 06/04/21 19:00 Seg Neutrophils % 70.0 % (40.0-70.0) 06/04/21 19:00 Seg Neutrophils # 5.6 K/mm3 (1.8-7.7) 06/04/21 19:00 Sodium 143 mmol/L (137-145) 06/05/21 05:23 Potassium 3.2 mmol/L (3.6-5.0) L 06/05/21 05:23 Chloride 105.9 mmol/L (98-107) 06/05/21 05:23 Carbon Dioxide 28 mmol/L (22-30) 06/05/21 05:23 Anion Gap 12 mmol/L 06/05/21 05:23 BUN 40 mg/dL (7-17) H 06/05/21 05:23 Creatinine 1.9 mg/dL (0.6-1.2) H 06/05/21 05:23 Estimated GFR 32 ml/min 06/05/21 05:23 BUN/Creatinine Ratio 21 % 06/05/21 05:23 Glucose 199 mg/dL (65-100) H 06/05/21 05:23 POC Glucose 261 mg/dL (70-105) H 06/07/21 22:01 Calcium 9.4 mg/dL (8.4-10.2) 06/05/21 05:23 Microbiology: Microbiology 06/07/21 10:47 Peripheral/Venous Blood Culture - Preliminary Culture in Progress 06/07/21 10:47 Peripheral/Venous Blood Culture - Preliminary Culture in Progress Tejeda/IV: Voiding Method External Female Catheter Active Medications - Current Medications Current Medications: Generic Name Dose Route Start Last Admin Trade Name Freq PRN Reason Stop Dose Admin Acetaminophen 650 mg 06/04/21 20:00 06/07/21 22:08 Acetaminophen 325 Mg Tab PO 650 mg Q4H PRN Administration Pain MILD(1-3)/Fever >100.5/FERNANDEZ Albuterol 2.5 mg 06/04/21 20:00 Albuterol 2.5 Mg/3 Ml Nebu IH Q4HRT PRN Shortness Of Breath Atorvastatin Calcium 80 mg 06/04/21 22:00 06/07/21 22:08 Atorvastatin 40 Mg Tab PO 80 mg QHS TIM Administration Enoxaparin Sodium 40 mg 06/06/21 17:00 06/07/21 14:16 Enoxaparin 40 Mg/0.4 Ml Inj SUB-Q 40 mg QDAY TIM Administration Famotidine 10 mg 06/05/21 22:00 06/07/21 22:07 Famotidine 10 Mg Tab PO 10 mg BID TIM Administration Gabapentin 300 mg 06/05/21 19:00 06/07/21 20:12 Gabapentin 300 Mg Cap PO Not Given QPM TIM Hydromorphone HCl 0.5 mg 06/04/21 20:00 06/06/21 21:23 Hydromorphone 1 Mg/1 Ml Inj IV 0.5 mg Q3H PRN Administration Pain , Severe (7-10) Ceftriaxone Sodium 2 gm in 100 mls @ 200 mls/hr 06/07/21 11:00 06/07/21 14:17 Rocephin/Ns 2 Gm/100 Ml IV 200 mls/hr Q24H TIM Administration Protocol Azithromycin 500 mg in 250 mls @ 250 mls/hr 06/07/21 12:00 06/07/21 16:32 Zithromax/Ns IV 250 mls/hr Q24H TIM Administration Insulin Glargine 6 units 06/07/21 22:00 06/07/21 22:09 Insulin Glargine 100 Units/Ml SUB-Q 6 units QHS TIM Administration Insulin Human Lispro 0 unit 06/07/21 07:30 06/07/21 22:09 Insulin Lispro 100 Unit/Ml SUB-Q 4 unit ACHS TIM Administration Protocol Isosorbide Mononitrate 60 mg 06/05/21 10:00 06/07/21 14:12 Isosorbide Mononitrate Er 60 Mg Tab PO 60 mg QDAY TIM Administration Ketorolac Tromethamine 15 mg 06/06/21 16:00 Ketorolac 30 Mg/1 Ml Inj IV 06/11/21 15:59 Q6H PRN Pain, Moderate (4-6) Levetiracetam 500 mg 06/04/21 22:00 06/07/21 22:08 Levetiracetam 500 Mg Tab PO 500 mg BID TIM Administration Metoprolol Succinate 50 mg 06/04/21 22:00 06/07/21 22:07 Metoprolol Succinate Xl 50 Mg Tab PO 50 mg BID TIM Administration Morphine Sulfate 4 mg 06/06/21 16:00 Morphine 4 Mg/1 Ml Inj IV Q4H PRN Pain , Severe (7-10) Ondansetron HCl 4 mg 06/04/21 20:00 Ondansetron 4 Mg/2 Ml Inj IV Q8H PRN Nausea And Vomiting Oxycodone/Acetaminophen 1 tab 06/06/21 16:00 06/07/21 04:37 Oxycodone /Acetaminophen 5-325mg Tab PO 1 tab Q6H PRN Administration Pain, Moderate (4-6) Sertraline HCl 100 mg 06/05/21 10:00 06/07/21 14:13 Sertraline 100 Mg Tab PO 100 mg QDAY TIM Administration Sodium Chloride 10 ml 06/04/21 22:00 06/07/21 22:10 Sodium Chloride 0.9% 10 Ml Flush Syringe IV Not Given BID TIM Sodium Chloride 10 ml 06/06/21 16:00 Sodium Chloride 0.9% 10 Ml Flush Syringe IV 06/26/21 15:59 PRN NR Topiramate 50 mg 06/05/21 10:00 06/07/21 16:33 Topiramate Tab 25 Mg Tab PO 50 mg DAILY TIM Administration Tramadol HCl 50 mg 06/04/21 19:00 06/04/21 22:13 Tramadol 50 Mg Tab PO 50 mg Q6HR PRN Administration PAIN
[2021-06-08] MEDS: cefTRIAXone/NS 2 GM/100 ML 2 GM/100 ML BAG IV SCH (11:25)
[2021-06-08] MEDS: INSULIN LISPRO 100 UNIT/ML SUB-Q SCH ×3 (11:25→18:17)
[2021-06-08] MEDS: traMADol 50 MG TAB PO PRN (11:26)
[2021-06-08] MEDS: FAMOTIDINE 10 MG TAB PO SCH ×2 (11:26→22:43)
[2021-06-08] MEDS: levETIRAcetam 500 MG TAB PO SCH ×2 (11:26→22:43)
[2021-06-08] MEDS: ENOXAPARIN 40 MG/0.4 ML INJ SUB-Q SCH (11:27)
[2021-06-08] MEDS: AZITHROMYCIN/NS 500 MG/250 ML 500 MG/250 ML BAG IV SCH (13:12)
[2021-06-08 14:16] LABS: Basophils % (Auto) 0.2 % (0.0-1.8); Eosinophils # (Auto) 0.1 K/mm3 (0.0-0.4); Eosinophils % (Auto) 0.8 % (0.0-4.3); Hemoglobin 8.3 gm/dl (10.1-14.3); Lymphocytes # (Auto) 1.1 K/mm3 (1.2-5.4); Lymphocytes % (Auto) 10.2 % (13.4-35.0); Mean Corpuscular HGB Conc 32 % (30-34); Mean Corpuscular Volume 78 fl (79-97); Monocytes # (Auto) 1.7 K/mm3 (0.0-0.8); Monocytes % (Auto) 15.5 % (0.0-7.3); Platelet Count 124 K/mm3 (140-440); Red Blood Count 3.33 M/mm3 (3.65-5.03); Red Cell Distribution Width 17.4 % (13.2-15.2)
[2021-06-08] MEDS: SERTRALINE 100 MG TAB PO SCH (14:25)
[2021-06-08] MEDS: TOPIRAMATE TAB 25 MG TAB PO SCH (14:25)
[2021-06-08 14:26] LABS: Calcium 8.4 mg/dL (8.4-10.2)
[2021-06-08] MEDS: GABAPENTIN 300 MG CAP PO SCH ×2 (18:17→18:29)
[2021-06-08] MEDS ORDERED: INSULIN GLARGINE 100 UNITS/ML SUB-Q SCH (22:00)
[2021-06-08] MEDS: METOPROLOL SUCCINATE XL 25 MG TAB PO SCH (22:43)
[2021-06-09] MEDS: INSULIN LISPRO 100 UNIT/ML SUB-Q SCH ×5 (00:07→22:32)
--- NOTE | 2021-06-09 07:57 | Progress Note ---
Assessment and Plan Assessment and plan: --Febrile illness; Current Visit: Yes Status: Acute Check blood cultures, urine cultures, chest x-ray Empiric antibiotics with Rocephin and Zithromax [place] PCR test, Consider ID consultation if needed Antibiotics -- Displaced fracture of left femur Current Visit: Yes Status: Acute Pain control, supportive care. Ortho evaluated the patient s/p ORIF continue postop care Physical therapy occupational therapy called next of kin patient's older sister Ms. Shekhar Hill at [phone] and updated her about patient's condition, tests and reports ,surgical procedure, her fall this afternoon, treatment and discharge planning and encouraged her to call and discuss with the case management for any special requests and needs she may have for her sister. She was appreciative of my call and I encouraged her to call back if she has any new questions or concerns. --s/p fall mechanical today Current Visit: Yes Status: Acute Fall precautions, x-ray left knee post fall no abnormality PT, OT supportive care --Obesity ; BMI 38.6 Current Visit: Yes Status: Acute Patient needs weight reduction dietary modification Exercise as tolerated when medically stable Need outpatient sleep study to rule out obstructive sleep apnea --Paroxysmal atrial fibrillation Current Visit: Yes Status: Acute Rate control, Eliquis held, due to ORIF surgery Resume when cleared by Ortho --Diabetes type II Current Visit: Yes Status: Acute Accu-Chek sliding scale coverage ADA diet Long-acting insulin as needed --Hypertension; moderate control Current Visit: No Status: Chronic Continue current antihypertensives, as needed medications Closely monitor blood pressures and adjust as needed -- CHF (congestive heart failure) EF 45 to 50%[01/2021] Current Visit: Yes Status: Acute Mild systolic dysfunction EF 45 to 50% Well compensated at this time, continue supportive care --DVT prophylaxis Current Visit: Yes Status: Acute SCDs bilateral lower extremities while in bed, Eliquis held, pending Ortho procedure tomorrow -- Advance care planning Current Visit: Yes Status: Acute Closely monitor adjust the management as needed Plan of care reviewed with the patient and her nurse We will closely monitor the patient and adjust management as needed Plan of care reviewed with the patient and her nurse Brief history; 65-year-old morbidly obese female patient with significant past medical history of hypertension diabetes dyslipidemia CVA my congestive heart failure paroxysmal A. fib on Eliquis seizure disorder was admitted through emergency room with history of fall with displaced left femur fracture, orthopedic evaluated the patient and patient subsequently underwent ORIF procedure, today POD 1 Today patient fell on the floor, febrile with T-max of 102.9, chest x-ray no acute abnormality, empiric antibiotics started, pancultures sent, consult ID if needed 06/07/21; continue empiric antibiotics Follow cultures, follow orthopedic recommendations consider ID consult if needed follow [place] PCR test called next of kin patient's older sister Ms. Shekhar Hill at [phone] and updated her about patient's condition, tests and reports ,surgical procedure, her fall this afternoon, treatment and discharge planning and encouraged her to call and discuss with the case management for any special requests and needs she may have for her sister. She was appreciative of my call and I encouraged her to call back if she has any new questions or concerns. 06/08: Continue supportive care and PT/OT, POD 2. Clear for discharge in 24 to 48hr if no further fever Patient also with CKD AT BASELINE. Discontinue toradol. use other pain meds, possible ultram Awaiting repeat studies today Adjust insulin for Better BP control ID consult pending 06/09: Patient seen and examined still with mild tachycardia likely secondary to atrial fibrillation with RVR will obtain cardiology evaluation. Will resume patient's Eliquis. Stop Lovenox. Patient does have a 1 g drop in hemoglobin we will monitor this carefully considering anticoagulation. No clear evidence of bleeding at the surgical site today's postop day 3. Has mild increase in creatinine will obtain nephrology consultation due to patient's underlying congestive heart failure and refraining from given fluids at this time. Continue to avoid nephrotoxic medications. Monitor platelet closely as patient does have mild downward trend again this supports the decision of discontinuing Lovenox due to possible HIT. No fever noted today History Interval history: Patient seen and examined no acute distress at this time resting comfortably. No pain at surgical site Hospitalist Physical - Physical exam Narrative exam: General appearance: Present: mild distress, obese (Morbidly obese), other (Febrile) - EENT Eyes: Present: PERRL, EOM intact - Neck Neck: Present: supple, normal ROM - Respiratory Respiratory effort: normal Respiratory: bilateral: diminished, rhonchi, negative: rales, wheezing - Cardiovascular Rhythm: regular Heart Sounds: Present: S1 & S2 irregularly irregular with mild tachycardia - Extremities Extremities: no ischemia, No edema, right knee dressing in place - Abdominal General gastrointestinal: soft, non-tender, non-distended, normal bowel sounds - Integumentary Integumentary: Present: clear, warm, knee dressing - Psychiatric Psychiatric: appropriate mood/affect, cooperative - Neurologic Neurologic: CNII-XII intact, moves all extremities - Constitutional Vitals: Temp Pulse Resp BP Pulse Ox 98.0 F 111 H 20 109/71 97 06/09/21 05:24 06/09/21 05:24 06/09/21 05:24 06/09/21 05:24 06/09/21 05:24 General appearance: Present: mild distress, obese (Morbidly obese), other (Febrile) Results - Labs CBC & Chem 7: 06/09/21 14:41 06/09/21 14:41 Labs: Laboratory Last Values WBC 10.9 K/mm3 (4.5-11.0) 06/08/21 13:45 RBC 3.33 M/mm3 (3.65-5.03) L 06/08/21 13:45 Hgb 8.3 gm/dl (10.1-14.3) L 06/08/21 13:45 Hct 26.0 % (30.3-42.9) L 06/08/21 13:45 MCV 78 fl (79-97) L 06/08/21 13:45 MCH 25 pg (28-32) L 06/08/21 13:45 MCHC 32 % (30-34) 06/08/21 13:45 RDW 17.4 % (13.2-15.2) H 06/08/21 13:45 Plt Count 124 K/mm3 (140-440) L 06/08/21 13:45 Lymph % (Auto) 10.2 % (13.4-35.0) L 06/08/21 13:45 [place] % (Auto) 15.5 % (0.0-7.3) H 06/08/21 13:45 Eos % (Auto) 0.8 % (0.0-4.3) 06/08/21 13:45 Baso % (Auto) 0.2 % (0.0-1.8) 06/08/21 13:45 Lymph # (Auto) 1.1 K/mm3 (1.2-5.4) L 06/08/21 13:45 [place] # (Auto) 1.7 K/mm3 (0.0-0.8) H 06/08/21 13:45 Eos # (Auto) 0.1 K/mm3 (0.0-0.4) 06/08/21 13:45 Baso # (Auto) 0.0 K/mm3 (0.0-0.1) 06/08/21 13:45 Seg Neutrophils % 73.3 % (40.0-70.0) H 06/08/21 13:45 Seg Neutrophils # 8.0 K/mm3 (1.8-7.7) H 06/08/21 13:45 Sodium 137 mmol/L (137-145) 06/08/21 13:45 Potassium 3.8 mmol/L (3.6-5.0) 06/08/21 13:45 Chloride 102.2 mmol/L (98-107) 06/08/21 13:45 Carbon Dioxide 23 mmol/L (22-30) 06/08/21 13:45 Anion Gap 16 mmol/L 06/08/21 13:45 BUN 44 mg/dL (7-17) H 06/08/21 13:45 Creatinine 2.2 mg/dL (0.6-1.2) H 06/08/21 13:45 Estimated GFR 27 ml/min 06/08/21 13:45 BUN/Creatinine Ratio 20 % 06/08/21 13:45 Glucose 318 mg/dL (65-100) H 06/08/21 13:45 POC Glucose 200 mg/dL (70-105) H 06/09/21 07:48 Calcium 8.4 mg/dL (8.4-10.2) 06/08/21 13:45 Magnesium 1.70 mg/dL (1.7-2.3) 06/08/21 13:45 Coronavirus (PCR) Negative (Negative) 06/08/21 Unknown Microbiology: Microbiology 06/07/21 10:47 Peripheral/Venous Blood Culture - Preliminary NO GROWTH AFTER 24 HOURS 06/07/21 10:47 Peripheral/Venous Blood Culture - Preliminary NO GROWTH AFTER 24 HOURS Tejeda/IV: Voiding Method External Female Catheter Active Medications - Current Medications Current Medications: Generic Name Dose Route Start Last Admin Trade Name Freq PRN Reason Stop Dose Admin Acetaminophen 650 mg 06/04/21 20:00 06/07/21 22:08 Acetaminophen 325 Mg Tab PO 650 mg Q4H PRN Administration Pain MILD(1-3)/Fever >100.5/FERNANDEZ Albuterol 2.5 mg 06/04/21 20:00 Albuterol 2.5 Mg/3 Ml Nebu IH Q4HRT PRN Shortness Of Breath Atorvastatin Calcium 80 mg 06/04/21 22:00 06/08/21 22:43 Atorvastatin 40 Mg Tab PO 80 mg QHS TIM Administration Famotidine 10 mg 06/05/21 22:00 06/08/21 22:43 Famotidine 10 Mg Tab PO 10 mg BID TIM Administration Gabapentin 300 mg 06/05/21 19:00 06/08/21 18:29 Gabapentin 300 Mg Cap PO Not Given QPM TIM Hydromorphone HCl 0.5 mg 06/04/21 20:00 06/06/21 21:23 Hydromorphone 1 Mg/1 Ml Inj IV 0.5 mg Q3H PRN Administration Pain , Severe (7-10) Ceftriaxone Sodium 2 gm in 100 mls @ 200 mls/hr 06/07/21 11:00 06/08/21 21:35 Rocephin/Ns 2 Gm/100 Ml IV Infused Q24H [facility] Infusion Protocol Azithromycin 500 mg in 250 mls @ 250 mls/hr 06/07/21 12:00 06/08/21 22:44 Zithromax/Ns IV Infused Q24H TIM Infusion Insulin Glargine 15 units 06/09/21 22:00 Insulin Glargine 100 Units/Ml SUB-Q QHS [facility] Insulin Human Lispro 0 unit 06/07/21 07:30 06/09/21 00:07 Insulin Lispro 100 Unit/Ml SUB-Q 4 unit ACHS TIM Administration Protocol Isosorbide Mononitrate 60 mg 06/05/21 10:00 06/08/21 11:26 Isosorbide Mononitrate Er 60 Mg Tab PO 60 mg QDAY TIM Administration Levetiracetam 500 mg 06/04/21 22:00 06/08/21 22:43 Levetiracetam 500 Mg Tab PO 500 mg BID TIM Administration Metoprolol Succinate 50 mg 06/08/21 22:00 06/08/21 22:43 Metoprolol Succinate Xl 25 Mg Tab PO 50 mg BID TIM Administration Miscellaneous Medication 5 mg 06/09/21 10:00 Apixaban PO Q12HR TIM Morphine Sulfate 4 mg 06/06/21 16:00 06/08/21 22:47 Morphine 4 Mg/1 Ml Inj IV 4 mg Q4H PRN Administration Pain , Severe (7-10) Ondansetron HCl 4 mg 06/04/21 20:00 Ondansetron 4 Mg/2 Ml Inj IV Q8H PRN Nausea And Vomiting Oxycodone/Acetaminophen 1 tab 06/06/21 16:00 06/07/21 04:37 Oxycodone /Acetaminophen 5-325mg Tab PO 1 tab Q6H PRN Administration Pain, Moderate (4-6) Sertraline HCl 100 mg 06/05/21 10:00 06/08/21 14:25 Sertraline 100 Mg Tab PO 100 mg QDAY TIM Administration Sodium Chloride 10 ml 06/04/21 22:00 06/08/21 22:45 Sodium Chloride 0.9% 10 Ml Flush Syringe IV 10 ml BID TIM Administration Sodium Chloride 10 ml 06/06/21 16:00 Sodium Chloride 0.9% 10 Ml Flush Syringe IV 06/26/21 15:59 PRN NR Topiramate 50 mg 06/05/21 10:00 06/08/21 14:25 Topiramate Tab 25 Mg Tab PO 50 mg DAILY TIM Administration Tramadol HCl 50 mg 06/08/21 09:00 06/08/21 11:26 Tramadol 50 Mg Tab PO 50 mg Q6H PRN Administration Pain, Moderate (4-6)
[2021-06-09] MEDS: HYDROmorphone 1 MG/1 ML INJ IV PRN ×3 (08:45→22:12)
[2021-06-09] MEDS: METOPROLOL SUCCINATE XL 50 MG TAB PO SCH (09:04)
[2021-06-09] MEDS ORDERED: NON-FORMULARY EACH (Apixaban 5 MG Tablet) PO SCH (10:00)
[2021-06-09] MEDS: levETIRAcetam 500 MG TAB PO SCH ×2 (11:31→22:04)
[2021-06-09] MEDS: TOPIRAMATE TAB 25 MG TAB PO SCH (11:31)
[2021-06-09] MEDS: APIXABAN 5 MG TAB PO SCH ×2 (11:32→22:04)
[2021-06-09] MEDS: METOPROLOL SUCCINATE XL 25 MG TAB PO SCH (11:32)
[2021-06-09] MEDS: FAMOTIDINE 10 MG TAB PO SCH ×2 (11:32→22:05)
[2021-06-09] MEDS: SERTRALINE 100 MG TAB PO SCH (11:32)
[2021-06-09] MEDS: AZITHROMYCIN/NS 500 MG/250 ML 500 MG/250 ML BAG IV SCH (11:33)
[2021-06-09] MEDS: cefTRIAXone/NS 2 GM/100 ML 2 GM/100 ML BAG IV SCH (11:33)
--- NOTE | 2021-06-09 11:37 | Consultation ---
History of Present Illness Consult date: 06/09/21 Requesting physician: BLAKE MAGANA Consult reason: atrial fibrillation History of present illness: The patient is followed by Dr. Jimmy Vaughn in our office. She has a history of hypertension, CAD and PAF. She is a rather poor historian and could not relate details of why she is in the hospital. She was admitted on 06/04/2021 after she sustained a fall without loss of consciousness. She sustained a displaced fracture of the distal left femur. She subsequently underwent ORIF on 06/06/2021. On POD 1, she reportedly fell and was noted to be febrile. Her heart rate was also noted to be elevated in atrial fibrillation. The patient denies any chest pain, dyspnea, palpitations or dizziness. She appears quite comfortable at the time of interview. On the monitor, she is in atrial fibrillation in the 90s currently. However, earlier today, her heart rate was significantly elevated. Echocardiogram of January 2021 revealed an ejection fraction of 45-50% with LVH. She had a negative stress MPI in June 2020. Past History Past Medical History: atrial fib (PAF), CAD, diabetes, hypertension, hyperlipidemia, other (CKD) Past Surgical History: hysterectomy, total knee replacement, Other (Carpal tunnel surgery) Social history: single. denies: smoking, alcohol abuse Family history: hypertension. denies: CAD Medications and Allergies Allergies Allergy/AdvReac Type Severity Reaction Status Date / Time No Known Allergies Allergy Verified 07/12/20 05:04 Home Medications Medication Instructions Recorded Confirmed Last Taken Type Apixaban [Eliquis] 5 mg PO Q12HR #60 tablet 02/14/21 06/06/21 Unknown Rx AtorvaSTATin [Lipitor] 80 mg PO QHS #60 tablet 02/14/21 06/06/21 Unknown Rx Gabapentin 300 mg PO QPM #30 capsule 02/14/21 06/06/21 Unknown Rx Insulin Glargine [Lantus VIAL] 15 units SUB-Q QHS #10 ml 02/14/21 06/06/21 Unknown Rx levETIRAcetam [Keppra TAB] 500 mg PO BID #60 02/14/21 06/06/21 Unknown Rx Aspirin EC [Halfprin EC] 81 mg PO QDAY #30 tablet. 04/15/21 06/06/21 Unknown Rx ISOSORBIDE MONOnitrate [Imdur ER] 60 mg PO QDAY #30 tablet 04/15/21 06/06/21 Unknown Rx Metoprolol Xl [Metoprolol 50 mg PO BID #60 tablet 04/15/21 06/06/21 Unknown Rx SUCCINATE ER TAB] Sertraline [Zoloft] 100 mg PO QDAY #30 04/15/21 06/06/21 Unknown Rx Topiramate [Topamax] 50 mg PO DAILY #30 tablet 04/15/21 06/06/21 Unknown Rx Famotidine [Pepcid] 20 mg PO BID #30 tablet 04/17/21 06/06/21 Unknown Rx traMADoL [Ultram] 50 mg PO Q6HR PRN #10 tablet 04/17/21 06/06/21 Unknown Rx Active Meds: Active Medications Acetaminophen (Acetaminophen 325 Mg Tab) 650 mg PO Q4H PRN PRN Reason: Pain MILD(1-3)/Fever >100.5/FERNANDEZ Last Admin: 06/07/21 22:08 Dose: 650 mg Documented by: Albuterol (Albuterol 2.5 Mg/3 Ml Nebu) 2.5 mg IH Q4HRT PRN PRN Reason: Shortness Of Breath Apixaban (Apixaban 5 Mg Tab) 5 mg PO Q12HR TIM; Protocol Atorvastatin Calcium (Atorvastatin 40 Mg Tab) 80 mg PO QHS TIM Last Admin: 06/08/21 22:43 Dose: 80 mg Documented by: Famotidine (Famotidine 10 Mg Tab) 10 mg PO BID TIM Last Admin: 06/08/21 22:43 Dose: 10 mg Documented by: Gabapentin (Gabapentin 300 Mg Cap) 300 mg PO QPM TIM Last Admin: 06/08/21 18:29 Dose: Not Given Documented by: Hydromorphone HCl (Hydromorphone 1 Mg/1 Ml Inj) 0.5 mg IV Q3H PRN PRN Reason: Pain , Severe (7-10) Last Admin: 06/06/21 21:23 Dose: 0.5 mg Documented by: Ceftriaxone Sodium (Rocephin/Ns 2 Gm/100 Ml) 2 gm in 100 mls @ 200 mls/hr IV Q24H TIM; Protocol Stop: 06/11/21 11:29 Last Infusion: 06/08/21 21:35 Dose: Infused Documented by: Azithromycin (Zithromax/Ns) 500 mg in 250 mls @ 250 mls/hr IV Q24H [facility] Stop: 06/11/21 12:59 Last Infusion: 06/08/21 22:44 Dose: Infused Documented by: Insulin Glargine (Insulin Glargine 100 Units/Ml) 15 units SUB-Q QHS [facility] Insulin Human Lispro (Insulin Lispro 100 Unit/Ml) 0 unit SUB-Q ACHS [facility]; Protocol Last Admin: 06/09/21 08:43 Dose: 3 unit Documented by: Isosorbide Mononitrate (Isosorbide Mononitrate Er 60 Mg Tab) 60 mg PO QDAY [facility] Last Admin: 06/08/21 11:26 Dose: 60 mg Documented by: Levetiracetam (Levetiracetam 500 Mg Tab) 500 mg PO BID [facility] Last Admin: 06/08/21 22:43 Dose: 500 mg Documented by: Metoprolol Succinate (Metoprolol Succinate Xl 25 Mg Tab) 50 mg PO BID [facility] Last Admin: 06/08/21 22:43 Dose: 50 mg Documented by: Morphine Sulfate (Morphine 4 Mg/1 Ml Inj) 4 mg IV Q4H PRN PRN Reason: Pain , Severe (7-10) Last Admin: 06/08/21 22:47 Dose: 4 mg Documented by: Ondansetron HCl (Ondansetron 4 Mg/2 Ml Inj) 4 mg IV Q8H PRN PRN Reason: Nausea And Vomiting Oxycodone/Acetaminophen (Oxycodone /Acetaminophen 5-325mg Tab) 1 tab PO Q6H PRN PRN Reason: Pain, Moderate (4-6) Last Admin: 06/07/21 04:37 Dose: 1 tab Documented by: Sertraline HCl (Sertraline 100 Mg Tab) 100 mg PO QDAY [facility] Last Admin: 06/08/21 14:25 Dose: 100 mg Documented by: Sodium Chloride (Sodium Chloride 0.9% 10 Ml Flush Syringe) 10 ml IV BID [facility] Last Admin: 06/08/21 22:45 Dose: 10 ml Documented by: Sodium Chloride (Sodium Chloride 0.9% 10 Ml Flush Syringe) 10 ml IV PRN NR Stop: 06/26/21 15:59 Topiramate (Topiramate Tab 25 Mg Tab) 50 mg PO DAILY [facility] Last Admin: 06/08/21 14:25 Dose: 50 mg Documented by: Tramadol HCl (Tramadol 50 Mg Tab) 50 mg PO Q6H PRN PRN Reason: Pain, Moderate (4-6) Last Admin: 06/08/21 11:26 Dose: 50 mg Documented by: Review of Systems Constitutional: no chills, no weakness Ears, nose, mouth and throat: no ear pain, no ear discharge, no dysphagia, no sore throat Cardiovascular: no chest pain, no orthopnea, no palpitations, no edema, no lightheadedness, no shortness of breath Respiratory: no cough, no hemoptysis Gastrointestinal: no abdominal pain, no nausea, no vomiting, no diarrhea, no constipation Genitourinary Female: no dysuria, no urinary frequency Rectal: no pain, no bleeding Musculoskeletal: no neck stiffness, no neck pain, no myalgias Integumentary: no rash, no pruritis Neurological: no weakness, no parathesias, no numbness, no tingling, no headaches Endocrine: no cold intolerance, no heat intolerance Hematologic/Lymphatic: no easy bruising, no easy bleeding Allergic/Immunologic: no urticaria, no wheezing Physical Examination Vital Signs Last Vital Signs Temp 97.5 F L 06/09/21 07:50 Pulse 136 H 06/09/21 07:50 Resp 18 06/09/21 07:50 BP 141/68 06/09/21 07:50 Pulse Ox 94 06/09/21 11:36 General appearance: no acute distress HEENT: Positive: EOMI, Normocephaly, Mucus Membranes Moist Neck: Positive: neck supple, trachea midline Cardiac: Positive: irregularly irregular, S1/S2 Lungs: Positive: clear to auscultation Neuro: Positive: Grossly Intact Abdomen: Positive: Soft, Active Bowel Sounds Musculoskeletal: Normal Range of Motion Extremities: Present: normal Results 06/08/21 13:45 06/08/21 13:45 CBC 06/08/21 Range/Units 13:45 WBC 10.9 (4.5-11.0) K/mm3 RBC 3.33 L (3.65-5.03) M/mm3 Hgb 8.3 L (10.1-14.3) gm/dl Hct 26.0 L (30.3-42.9) % Plt Count 124 L (140-440) K/mm3 Lymph # (Auto) 1.1 L (1.2-5.4) K/mm3 [place] # (Auto) 1.7 H (0.0-0.8) K/mm3 Eos # (Auto) 0.1 (0.0-0.4) K/mm3 Baso # (Auto) 0.0 (0.0-0.1) K/mm3 Comprehensive Metabolic Panel 06/08/21 Range/Units 13:45 Sodium 137 (137-145) mmol/L Potassium 3.8 (3.6-5.0) mmol/L Chloride 102.2 (98-107) mmol/L Carbon Dioxide 23 (22-30) mmol/L BUN 44 H (7-17) mg/dL Creatinine 2.2 H (0.6-1.2) mg/dL Glucose 318 H (65-100) mg/dL Calcium 8.4 (8.4-10.2) mg/dL - Imaging and Cardiology EKG: pending EKG interpretations - Telemetry EKG Rhythm: Atrial Fibrillation (with RVR) Assessment and Plan Increase metoprolol dose as BP permits. At small dose of amiodarone with the hope of conversion and maintenance of sinus rhythm. - Patient Problems (1) Paroxysmal atrial fibrillation with RVR Current Visit: Yes Status: Acute (2) S/P ORIF (open reduction internal fixation) fracture Current Visit: Yes Status: Acute (3) Acute kidney injury superimposed on CKD Current Visit: Yes Status: Acute (4) CAD (coronary artery disease) Current Visit: Yes Status: Chronic Qualifiers: Coronary Disease-Associated Artery/Lesion type: [place] artery [place] vs. transplanted heart: [place] heart (5) HTN (hypertension) Current Visit: Yes Status: Chronic Qualifiers: Hypertension type: primary hypertension Qualified Code(s): I10 - Essential (primary) hypertension (6) DM2 (diabetes mellitus, type 2) Current Visit: Yes Status: Chronic (7) History of CVA (cerebrovascular accident) Current Visit: No Status: Resolved
[2021-06-09] MEDS: AMIODARONE 200 MG TAB PO SCH ×2 (12:38→22:04)
[2021-06-09] MEDS ORDERED: MAGNESIUM SULFATE 2 GM/50 ML BAG IV ONE (13:00)
[2021-06-09] MEDS: METOPROLOL TARTRATE 50 MG TAB PO SCH ×2 (15:23→21:04)
[2021-06-09 15:27] LABS: Hematocrit 24.8 % (30.3-42.9); Hemoglobin 7.8 gm/dl (10.1-14.3); Mean Corpuscular HGB Conc 31 % (30-34); Mean Corpuscular Volume 78 fl (79-97); Platelet Count 146 K/mm3 (140-440); Red Blood Count 3.18 M/mm3 (3.65-5.03); Red Cell Distribution Width 17.3 % (13.2-15.2)
[2021-06-09 15:41] LABS: Calcium 8.7 mg/dL (8.4-10.2)
[2021-06-09 15:45] LABS: INR 1.38 (0.87-1.13); Partial Thromboplastin Time 37.3 Sec. (24.2-36.6)
[2021-06-09] MEDS: GABAPENTIN 300 MG CAP PO SCH (18:33)
--- NOTE | 2021-06-09 21:19 | Consultation ---
History of Present Illness - Reason for Consult Consult date: 06/09/21 acute renal failure, chronic renal failure - History of Present Illness The patient is a 65 YO female with history significant for Morbid obesity, HTN, cholelithiasis, R hydronephrosis s/p stent with stent removal, seizure, Stroke x2 with reported residual right-sided weakness, CAD, LANNY on CPAP and CKD who presented to [facility] ED 06/04 after she sustained a mechanical fall. Patient is a very poor historian and confused. Patient was found to have L femur fracture and admitted for further evaluation. Labs today significant for Creat 2.4 and BUN 51. Nephrology was consulted for further evaluation of VAL. Past History Past Medical History: atrial fib (PAF), CAD, diabetes, hypertension, hyperlipidemia, other (CKD) Past Surgical History: hysterectomy, total knee replacement, Other (Carpal tunnel surgery) Social history: single. denies: smoking, alcohol abuse Family history: hypertension. denies: CAD Medications and Allergies Allergies Allergy/AdvReac Type Severity Reaction Status Date / Time No Known Allergies Allergy Verified 07/12/20 05:04 Home Medications Medication Instructions Recorded Confirmed Last Taken Type Apixaban [Eliquis] 5 mg PO Q12HR #60 tablet 02/14/21 06/06/21 Unknown Rx AtorvaSTATin [Lipitor] 80 mg PO QHS #60 tablet 02/14/21 06/06/21 Unknown Rx Gabapentin 300 mg PO QPM #30 capsule 02/14/21 06/06/21 Unknown Rx Insulin Glargine [Lantus VIAL] 15 units SUB-Q QHS #10 ml 02/14/21 06/06/21 Unknown Rx levETIRAcetam [Keppra TAB] 500 mg PO BID #60 02/14/21 06/06/21 Unknown Rx Aspirin EC [Halfprin EC] 81 mg PO QDAY #30 tablet. 04/15/21 06/06/21 Unknown Rx ISOSORBIDE MONOnitrate [Imdur ER] 60 mg PO QDAY #30 tablet 04/15/21 06/06/21 Unknown Rx Metoprolol Xl [Metoprolol 50 mg PO BID #60 tablet 04/15/21 06/06/21 Unknown Rx SUCCINATE ER TAB] Sertraline [Zoloft] 100 mg PO QDAY #30 04/15/21 06/06/21 Unknown Rx Topiramate [Topamax] 50 mg PO DAILY #30 tablet 04/15/21 06/06/21 Unknown Rx Famotidine [Pepcid] 20 mg PO BID #30 tablet 04/17/21 06/06/21 Unknown Rx traMADoL [Ultram] 50 mg PO Q6HR PRN #10 tablet 04/17/21 06/06/21 Unknown Rx Active Meds: Active Medications Acetaminophen (Acetaminophen 325 Mg Tab) 650 mg PO Q4H PRN PRN Reason: Pain MILD(1-3)/Fever >100.5/FERNANDEZ Last Admin: 06/07/21 22:08 Dose: 650 mg Documented by: Albuterol (Albuterol 2.5 Mg/3 Ml Nebu) 2.5 mg IH Q4HRT PRN PRN Reason: Shortness Of Breath Amiodarone HCl (Amiodarone 200 Mg Tab) 200 mg PO BID [facility] Last Admin: 06/09/21 12:38 Dose: 200 mg Documented by: Apixaban (Apixaban 5 Mg Tab) 5 mg PO Q12HR TIM; Protocol Last Admin: 06/09/21 11:32 Dose: 5 mg Documented by: Atorvastatin Calcium (Atorvastatin 40 Mg Tab) 80 mg PO QHS [facility] Last Admin: 06/08/21 22:43 Dose: 80 mg Documented by: Famotidine (Famotidine 10 Mg Tab) 10 mg PO BID [facility] Last Admin: 06/09/21 11:32 Dose: 10 mg Documented by: Gabapentin (Gabapentin 300 Mg Cap) 300 mg PO QPM [facility] Last Admin: 06/09/21 18:33 Dose: 300 mg Documented by: Hydromorphone HCl (Hydromorphone 1 Mg/1 Ml Inj) 0.5 mg IV Q3H PRN PRN Reason: Pain , Severe (7-10) Last Admin: 06/09/21 11:30 Dose: 0.5 mg Documented by: Ceftriaxone Sodium (Rocephin/Ns 2 Gm/100 Ml) 2 gm in 100 mls @ 200 mls/hr IV Q24H TIM; Protocol Stop: 06/11/21 11:29 Last Admin: 06/09/21 11:33 Dose: 200 mls/hr Documented by: Azithromycin (Zithromax/Ns) 500 mg in 250 mls @ 250 mls/hr IV Q24H TIM Stop: 06/11/21 12:59 Last Admin: 06/09/21 11:33 Dose: 100 mls/hr Documented by: Insulin Glargine (Insulin Glargine 100 Units/Ml) 15 units SUB-Q QHS [facility] Insulin Human Lispro (Insulin Lispro 100 Unit/Ml) 0 unit SUB-Q ACHS [facility]; Protocol Last Admin: 06/09/21 18:33 Dose: 2 unit Documented by: Isosorbide Mononitrate (Isosorbide Mononitrate Er 60 Mg Tab) 60 mg PO QDAY [facility] Last Admin: 06/09/21 11:32 Dose: 60 mg Documented by: Levetiracetam (Levetiracetam 500 Mg Tab) 500 mg PO BID [facility] Last Admin: 06/09/21 11:31 Dose: 500 mg Documented by: Metoprolol Tartrate (Metoprolol Tartrate 50 Mg Tab) 50 mg PO TID [facility] Last Admin: 06/09/21 15:23 Dose: 50 mg Documented by: Morphine Sulfate (Morphine 4 Mg/1 Ml Inj) 4 mg IV Q4H PRN PRN Reason: Pain , Severe (7-10) Last Admin: 06/08/21 22:47 Dose: 4 mg Documented by: Ondansetron HCl (Ondansetron 4 Mg/2 Ml Inj) 4 mg IV Q8H PRN PRN Reason: Nausea And Vomiting Oxycodone/Acetaminophen (Oxycodone /Acetaminophen 5-325mg Tab) 1 tab PO Q6H PRN PRN Reason: Pain, Moderate (4-6) Last Admin: 06/07/21 04:37 Dose: 1 tab Documented by: Sertraline HCl (Sertraline 100 Mg Tab) 100 mg PO QDAY [facility] Last Admin: 06/09/21 11:32 Dose: 100 mg Documented by: Sodium Chloride (Sodium Chloride 0.9% 10 Ml Flush Syringe) 10 ml IV BID [facility] Last Admin: 06/09/21 11:32 Dose: 10 ml Documented by: Sodium Chloride (Sodium Chloride 0.9% 10 Ml Flush Syringe) 10 ml IV PRN NR Stop: 06/26/21 15:59 Topiramate (Topiramate Tab 25 Mg Tab) 50 mg PO DAILY [facility] Last Admin: 06/09/21 11:31 Dose: 50 mg Documented by: Tramadol HCl (Tramadol 50 Mg Tab) 50 mg PO Q6H PRN PRN Reason: Pain, Moderate (4-6) Last Admin: 06/08/21 11:26 Dose: 50 mg Documented by: Review of Systems ROS unobtainable: due to mental status Exam - Vital Signs Vital signs: Vital Signs Temp Pulse Resp BP Pulse Ox 98.4 F 81 20 133/88 99 06/04/21 18:48 06/04/21 18:48 06/04/21 18:48 06/04/21 18:48 06/04/21 18:48 Results - Lab Results 06/10/21 05:02 06/10/21 05:02 Most recent lab results Calcium 8.7 mg/dL (8.4-10.2) 06/09/21 14:41 Magnesium 1.70 mg/dL (1.7-2.3) 06/08/21 13:45 Assessment and Plan 1. Acute kidney injury: VAL superimposed on CKD. ?vasomotor VAL. Urine studies and Renal US ordered. Monitor renal function. Creatinine level increasing. Avoid nephrotoxic agents. Meds dosage based on GFR. 2. FEN: Hypokalemia, improved. Hyperchloremia, improved, monitor. Replete lytes as needed. Monitor lytes and volume status. 3. L femur displaced fracture: S/p ORIF. 4. Paroxysmal A.fib: Amiodarone and Eliquis. Seen by Cards. 5. H/o CVA. 6. DM type 2: Lantus and SSI. Monitor. 7. HTN: Monitor BP. Adjust meds as needed. 8. LANNY. 9. Hx of seizure: Keppra. 10. Normochromic anemia: Monitor. Subjective: Patient was seen and examined at the bedside. Examination: General appearance: well-developed, appears stated age, no distress, obese HEENT: [place], atraumatic Neck: trachea midline Respiratory: Clear to Auscultation Heart: S1S2, no murmur Abdomen: soft, obese, bowel sounds heard, NT Integumentary: no rash Neurologic: Alert, conversing, barely able to move extremities, confused Ext: L leg dressing noted
[2021-06-09] MEDS: INSULIN GLARGINE 100 UNITS/ML SUB-Q SCH (22:19)
[2021-06-10 05:23] LABS: Hematocrit 23.4 % (30.3-42.9); Hemoglobin 7.4 gm/dl (10.1-14.3); Mean Corpuscular HGB Conc 32 % (30-34); Mean Corpuscular Volume 78 fl (79-97); Platelet Count 151 K/mm3 (140-440); Red Blood Count 2.99 M/mm3 (3.65-5.03); Red Cell Distribution Width 17.3 % (13.2-15.2)
[2021-06-10 05:45] LABS: Albumin 2.8 g/dL (3.9-5); Calcium 8.9 mg/dL (8.4-10.2)
[2021-06-10] MEDS: HYDROmorphone 1 MG/1 ML INJ IV PRN (06:19)
[2021-06-10 06:28] LABS: Protein/Creatinine Ratio,Urine 0.45
[2021-06-10 06:35] LABS: Bilirubin,Urine NEG (Negative); Blood,Urine NEG (Negative); Color,Urine Amber (Yellow); Hyaline Casts,Urine 1 /LPF; Mucus,Urine FEW /HPF; Urobilinogen,Urine < 2.0 mg/dL (<2.0)
[2021-06-10] MEDS: INSULIN LISPRO 100 UNIT/ML SUB-Q SCH ×5 (07:30→23:03)
--- NOTE | 2021-06-10 09:04 | Progress Note ---
Assessment and Plan Assessment and plan: 65-year-old morbidly obese female patient with significant past medical history of hypertension diabetes dyslipidemia CVA my congestive heart failure paroxysmal A. fib on Eliquis seizure disorder was admitted through emergency room with history of fall with displaced left femur fracture, orthopedic evaluated the patient and patient subsequently underwent ORIF procedure, today POD 1 Today patient fell on the floor, febrile with T-max of 102.9, chest x-ray no acute abnormality, empiric antibiotics started, pancultures sent, consult ID if needed 06/07/21; continue empiric antibiotics Follow cultures, follow orthopedic recommendations consider ID consult if needed follow georges PCR test called next of kin patient's older sister Ms. Shekhar Hill at [phone] and updated her about patient's condition, tests and reports ,surgical procedure, her fall this afternoon, treatment and discharge planning and encouraged her to call and discuss with the case management for any special requests and needs she may have for her sister. She was appreciative of my call and I encouraged her to call back if she has any new questions or concerns. 06/08: Continue supportive care and PT/OT, POD 2. Clear for discharge in 24 to 48hr if no further fever Patient also with CKD AT BASELINE. Discontinue toradol. use other pain meds, possible ultram Awaiting repeat studies today Adjust insulin for Better BP control ID consult pending 06/09: Patient seen and examined still with mild tachycardia likely secondary to atrial fibrillation with RVR will obtain cardiology evaluation. Will resume patient's Eliquis. Stop Lovenox. Patient does have a 1 g drop in hemoglobin we will monitor this carefully considering anticoagulation. No clear evidence of bleeding at the surgical site today's postop day 3. Has mild increase in creatinine will obtain nephrology consultation due to patient's underlying congestive heart failure and refraining from given fluids at this time. Continue to avoid nephrotoxic medications. Monitor platelet closely as patient does have mild downward trend again this supports the decision of discontinuing Lovenox due to possible HIT. No fever noted today 06/10; Patient with worsening renal function, amidarone added to assist with management of Atrial fibrillation. I spoke with the sister Ms Corrigan, who reports that since her Last stroke the patient has had intermittent delirium progressing to dementia. I did tell her the patient is pretty confused today and she says that that is close to her baseline. They do have an outpatient nephrology appointment but her kidney numbers are worse than her baseline once we begin to notice some trending down we will proceed with discharge. She also states that patient is ambulatory will continue PT evaluation and preparation for discharge --Febrile illness; Current Visit: Yes Status: Acute Check blood cultures, urine cultures, chest x-ray Empiric antibiotics with Rocephin and Zithromax Georges PCR test, Consider ID consultation if needed Antibiotics -- Displaced fracture of left femur Current Visit: Yes Status: Acute Pain control, supportive care. Ortho evaluated the patient s/p ORIF continue postop care Physical therapy occupational therapy called next of kin patient's older sister Ms. Shekhar Hill at [phone] and updated her about patient's condition, tests and reports ,surgical procedure, her fall this afternoon, treatment and discharge planning and encouraged her to call and discuss with the case management for any special requests and needs she may have for her sister. She was appreciative of my call and I encouraged her to call back if she has any new questions or concerns. --s/p fall mechanical today Current Visit: Yes Status: Acute Fall precautions, x-ray left knee post fall no abnormality PT, OT supportive care --Obesity ; BMI 38.6 Current Visit: Yes Status: Acute Patient needs weight reduction dietary modification Exercise as tolerated when medically stable Need outpatient sleep study to rule out obstructive sleep apnea --Paroxysmal atrial fibrillation Current Visit: Yes Status: Acute Rate control, Eliquis held, due to ORIF surgery Resume when cleared by Ortho --Diabetes type II Current Visit: Yes Status: Acute Accu-Chek sliding scale coverage ADA diet Long-acting insulin as needed --Hypertension; moderate control Current Visit: No Status: Chronic Continue current antihypertensives, as needed medications Closely monitor blood pressures and adjust as needed -- CHF (congestive heart failure) EF 45 to 50%[01/2021] Current Visit: Yes Status: Acute Mild systolic dysfunction EF 45 to 50% Well compensated at this time, continue supportive care --sherwin on ckd Secondary to vasomotor nephropathy DVT prophylaxis Current Visit: Yes Status: Acute SCDs bilateral lower extremities while in bed, Eliquis held, pending Ortho procedure tomorrow -- Advance care planning Current Visit: Yes Status: Acute Closely monitor adjust the management as needed Plan of care reviewed with the patient and her nurse We will closely monitor the patient and adjust management as needed Plan of care reviewed with the patient and her nurse History Interval history: Patient seen and examined no acute distress at this time resting comfortably. No pain at surgical site. CONFUSED Hospitalist Physical - Physical exam Narrative exam: General appearance: Present: mild distress, obese (Morbidly obese), other (Febrile) - EENT Eyes: Present: PERRL, EOM intact - Neck Neck: Present: supple, normal ROM - Respiratory Respiratory effort: normal Respiratory: bilateral: diminished, rhonchi, negative: rales, wheezing - Cardiovascular Rhythm: regular Heart Sounds: Present: S1 & S2 irregularly irregular with mild tachycardia - Extremities Extremities: no ischemia, No edema, right knee dressing in place - Abdominal General gastrointestinal: soft, non-tender, non-distended, normal bowel sounds - Integumentary Integumentary: Present: clear, warm, knee dressing - Psychiatric Psychiatric: appropriate mood - Neurologic Neurologic: CNII-XII intact, moves all extremities, DEMENTIA - Constitutional Vitals: Temp Pulse Resp BP Pulse Ox 97.9 F 73 18 111/50 98 06/10/21 04:53 06/10/21 04:53 06/10/21 04:53 06/10/21 04:53 06/10/21 04:53 General appearance: Present: mild distress, obese (Morbidly obese), other (Febrile) Results - Labs CBC & Chem 7: 06/10/21 05:02 06/10/21 05:02 Labs: Laboratory Last Values WBC 7.4 K/mm3 (4.5-11.0) 06/10/21 05:02 RBC 2.99 M/mm3 (3.65-5.03) L 06/10/21 05:02 Hgb 7.4 gm/dl (10.1-14.3) L 06/10/21 05:02 Hct 23.4 % (30.3-42.9) L 06/10/21 05:02 MCV 78 fl (79-97) L 06/10/21 05:02 MCH 25 pg (28-32) L 06/10/21 05:02 MCHC 32 % (30-34) 06/10/21 05:02 RDW 17.3 % (13.2-15.2) H 06/10/21 05:02 Plt Count 151 K/mm3 (140-440) 06/10/21 05:02 Lymph % (Auto) 10.2 % (13.4-35.0) L 06/08/21 13:45 [place] % (Auto) 15.5 % (0.0-7.3) H 06/08/21 13:45 Eos % (Auto) 0.8 % (0.0-4.3) 06/08/21 13:45 Baso % (Auto) 0.2 % (0.0-1.8) 06/08/21 13:45 Lymph # (Auto) 1.1 K/mm3 (1.2-5.4) L 06/08/21 13:45 [place] # (Auto) 1.7 K/mm3 (0.0-0.8) H 06/08/21 13:45 Eos # (Auto) 0.1 K/mm3 (0.0-0.4) 06/08/21 13:45 Baso # (Auto) 0.0 K/mm3 (0.0-0.1) 06/08/21 13:45 Seg Neutrophils % 73.3 % (40.0-70.0) H 06/08/21 13:45 Seg Neutrophils # 8.0 K/mm3 (1.8-7.7) H 06/08/21 13:45 PT 17.5 Sec. (12.2-14.9) H 06/09/21 14:40 INR 1.38 (0.87-1.13) H 06/09/21 14:40 APTT 37.3 Sec. (24.2-36.6) H 06/09/21 14:40 Sodium 140 mmol/L (137-145) 06/10/21 05:02 Potassium 4.0 mmol/L (3.6-5.0) 06/10/21 05:02 Chloride 103.7 mmol/L (98-107) 06/10/21 05:02 Carbon Dioxide 24 mmol/L (22-30) 06/10/21 05:02 Anion Gap 16 mmol/L 06/10/21 05:02 BUN 59 mg/dL (7-17) H 06/10/21 05:02 Creatinine 2.9 mg/dL (0.6-1.2) H 06/10/21 05:02 Estimated GFR 20 ml/min 06/10/21 05:02 BUN/Creatinine Ratio 20 % 06/10/21 05:02 Glucose 181 mg/dL (65-100) H 06/10/21 05:02 POC Glucose 152 mg/dL (70-105) H 06/10/21 07:59 Calcium 8.9 mg/dL (8.4-10.2) 06/10/21 05:02 Magnesium 1.70 mg/dL (1.7-2.3) 06/08/21 13:45 Total Bilirubin 0.30 mg/dL (0.1-1.2) 06/10/21 05:02 AST 73 units/L (5-40) H 06/10/21 05:02 ALT 45 units/L (7-56) 06/10/21 05:02 Alkaline Phosphatase 83 units/L (35-129) 06/10/21 05:02 Total Protein 6.6 g/dL (6.3-8.2) 06/10/21 05:02 Albumin 2.8 g/dL (3.9-5) L 06/10/21 05:02 Albumin/Globulin Ratio 0.7 % 06/10/21 05:02 TSH 0.889 mlU/mL (0.270-4.200) 06/10/21 05:02 Urine Color [place] (Yellow) 06/10/21 05:30 Urine Turbidity Slightly-cloudy (Clear) 06/10/21 05:30 Urine pH 5.0 (5.0-7.0) 06/10/21 05:30 Ur Specific [place] 1.020 (1.003-1.030) 06/10/21 05:30 Urine Protein 100 mg/dl mg/dL (Negative) 06/10/21 05:30 Urine Glucose (UA) Neg mg/dL (Negative) 06/10/21 05:30 Urine Ketones Neg mg/dL (Negative) 06/10/21 05:30 Urine Blood Neg (Negative) 06/10/21 05:30 Urine Nitrite Neg (Negative) 06/10/21 05:30 Urine Bilirubin Neg (Negative) 06/10/21 05:30 Urine Urobilinogen < 2.0 mg/dL (<2.0) 06/10/21 05:30 Ur Leukocyte Esterase Neg (Negative) 06/10/21 05:30 Urine WBC (Auto) 6.0 /HPF (0.0-6.0) 06/10/21 05:30 Urine RBC (Auto) 2.0 /HPF (0.0-6.0) 06/10/21 05:30 U Epithel Cells (Auto) 10.0 /HPF (0-13.0) 06/10/21 05:30 Hyaline Casts 1 /LPF 06/10/21 05:30 Urine Mucus Few /HPF 06/10/21 05:30 Urine Creatinine 310.0 mg/dL (0.1-20.0) H 06/10/21 05:30 Protein/Creatinin Ratio 0.45 06/10/21 05:30 Urine Sodium 18 mmol/L 06/10/21 05:30 Urine Total Protein 139 mg/dL (5-11.8) H 06/10/21 05:30 Coronavirus (PCR) Negative (Negative) 06/08/21 Unknown Microbiology: Microbiology 06/07/21 18:34 Urine,Clean Catch Urine Culture - Preliminary 06/07/21 10:47 Peripheral/Venous Blood Culture - Preliminary NO GROWTH AFTER 48 HOURS 06/07/21 10:47 Peripheral/Venous Blood Culture - Preliminary NO GROWTH AFTER 48 HOURS Tejeda/IV: Voiding Method External Female Catheter Active Medications - Current Medications Current Medications: Generic Name Dose Route Start Last Admin Trade Name Freq PRN Reason Stop Dose Admin Acetaminophen 650 mg 06/04/21 20:00 06/07/21 22:08 Acetaminophen 325 Mg Tab PO 650 mg Q4H PRN Administration Pain MILD(1-3)/Fever >100.5/FERNANDEZ Albuterol 2.5 mg 06/04/21 20:00 Albuterol 2.5 Mg/3 Ml Nebu IH Q4HRT PRN Shortness Of Breath Amiodarone HCl 200 mg 06/09/21 12:00 06/09/21 22:04 Amiodarone 200 Mg Tab PO 200 mg BID TIM Administration Apixaban 5 mg 06/09/21 10:00 06/09/21 22:04 Apixaban 5 Mg Tab PO 5 mg Q12HR TIM Administration Protocol Atorvastatin Calcium 80 mg 06/04/21 22:00 06/09/21 22:05 Atorvastatin 40 Mg Tab PO 80 mg QHS TIM Administration Famotidine 10 mg 06/05/21 22:00 06/09/21 22:05 Famotidine 10 Mg Tab PO 10 mg BID TIM Administration Gabapentin 300 mg 06/05/21 19:00 06/09/21 18:33 Gabapentin 300 Mg Cap PO 300 mg QPM TIM Administration Hydromorphone HCl 0.5 mg 06/04/21 20:00 06/10/21 06:19 Hydromorphone 1 Mg/1 Ml Inj IV 0.5 mg Q3H PRN Administration Pain , Severe (7-10) Ceftriaxone Sodium 2 gm in 100 mls @ 200 mls/hr 06/07/21 11:00 06/09/21 22:19 Rocephin/Ns 2 Gm/100 Ml IV 06/11/21 11:29 Infused Q24H [facility] Infusion Protocol Azithromycin 500 mg in 250 mls @ 250 mls/hr 06/07/21 12:00 06/09/21 11:33 Zithromax/Ns IV 06/11/21 12:59 100 mls/hr Q24H TIM Administration Sodium Chloride 1,000 mls @ 75 mls/hr 06/10/21 08:00 Nacl 0.45% 1000 Ml IV DIRECT TIM Insulin Glargine 15 units 06/09/21 22:00 06/09/21 22:19 Insulin Glargine 100 Units/Ml SUB-Q 15 units QHS TIM Administration Insulin Human Lispro 0 unit 06/07/21 07:30 06/09/21 22:32 Insulin Lispro 100 Unit/Ml SUB-Q Not Given ACHS [facility] Protocol Isosorbide Mononitrate 60 mg 06/05/21 10:00 06/09/21 11:32 Isosorbide Mononitrate Er 60 Mg Tab PO 60 mg QDAY TIM Administration Levetiracetam 500 mg 06/04/21 22:00 06/09/21 22:04 Levetiracetam 500 Mg Tab PO 500 mg BID TIM Administration Metoprolol Tartrate 50 mg 06/09/21 14:00 06/09/21 21:04 Metoprolol Tartrate 50 Mg Tab PO 50 mg TID TIM Administration Morphine Sulfate 4 mg 06/06/21 16:00 06/08/21 22:47 Morphine 4 Mg/1 Ml Inj IV 4 mg Q4H PRN Administration Pain , Severe (7-10) Ondansetron HCl 4 mg 06/04/21 20:00 06/09/21 22:05 Ondansetron 4 Mg/2 Ml Inj IV 4 mg Q8H PRN Administration Nausea And Vomiting Oxycodone/Acetaminophen 1 tab 06/06/21 16:00 06/07/21 04:37 Oxycodone /Acetaminophen 5-325mg Tab PO 1 tab Q6H PRN Administration Pain, Moderate (4-6) Sertraline HCl 100 mg 06/05/21 10:00 06/09/21 11:32 Sertraline 100 Mg Tab PO 100 mg QDAY TIM Administration Sodium Chloride 10 ml 06/04/21 22:00 06/09/21 22:20 Sodium Chloride 0.9% 10 Ml Flush Syringe IV 10 ml BID TIM Administration Sodium Chloride 10 ml 06/06/21 16:00 Sodium Chloride 0.9% 10 Ml Flush Syringe IV 06/26/21 15:59 PRN NR Topiramate 50 mg 06/05/21 10:00 06/09/21 11:31 Topiramate Tab 25 Mg Tab PO 50 mg DAILY TIM Administration Tramadol HCl 50 mg 06/08/21 09:00 06/08/21 11:26 Tramadol 50 Mg Tab PO 50 mg Q6H PRN Administration Pain, Moderate (4-6)
--- NOTE | 2021-06-10 09:28 | Ultrasound Report ---
ULTRASOUND RENAL INDICATION: Acute renal failure.. COMPARISON: CT abdomen and pelvis without contrast from 04/17/2021. FINDINGS: RIGHT KIDNEY: Size: 11.3 cm. Echogenicity: Increased. Parenchymal thickness: Moderate thinning, 0.8 cm. Hydronephrosis: Similar mild/moderate hydronephrosis. Cyst or mass: None. Stones: None. LEFT KIDNEY: Size: 10.4 cm. Echogenicity: Normal. Parenchymal thickness: Normal. Hydronephrosis: Mild. Cyst or mass: None. Stones: None. Urinary Bladder: No significant abnormality. Free Fluid: None. Additional Findings: None. IMPRESSION 1. Mild left hydronephrosis of uncertain etiology. 2. Stable chronic right renal parenchymal thinning and mild/moderate hydronephrosis, suggestive of a UPJ obstruction. Signer Name: Rodri Alex MD Signed: 06/10/2021 9:23 AM Workstation Name: [id number]
[2021-06-10] MEDS ORDERED: APIXABAN 5 MG TAB PO SCH (10:37)
[2021-06-10] MEDS: oxyCODONE /ACETAMINOPHEN 5-325MG TAB PO PRN (10:40)
[2021-06-10] MEDS: SERTRALINE 100 MG TAB PO SCH (10:40)
[2021-06-10] MEDS: levETIRAcetam 500 MG TAB PO SCH ×2 (10:41→23:02)
[2021-06-10] MEDS: TOPIRAMATE TAB 25 MG TAB PO SCH (10:41)
[2021-06-10] MEDS: FAMOTIDINE 10 MG TAB PO SCH ×2 (10:41→23:02)
[2021-06-10] MEDS: APIXABAN 5 MG TAB PO SCH ×2 (10:41→10:43)
[2021-06-10] MEDS: AMIODARONE 200 MG TAB PO SCH ×2 (10:41→23:03)
--- NOTE | 2021-06-10 12:38 | Progress Note ---
Assessment and Plan Paroxysmal atrial fibrillation with RVR CAD HTN * Telemetry reviewed: afib 70-80s with no events * Increase metoprolol dose as BP permits. Continue amiodarone for maintenance of sinus rhythm. * Echocardiogram of January 2021 revealed an ejection fraction of 45-50% with LVH. * Negative stress MPI in June 2020. * Decreased Eliquis dose in setting of decreased GFR. Eliquis on hold. Recommend resuming when permitted by ortho S/P ORIF (open reduction internal fixation) fracture * Followed by Ortho Acute kidney injury superimposed on CKD * Followed by nephrology Patient seen in conjunction with Dr. Vaughn who agrees with this plan of care. Will continue to follow - Patient Problems (1) Displaced fracture of femur Current Visit: Yes Status: Acute (2) Obesity hypoventilation syndrome Current Visit: Yes Status: Acute (3) Paroxysmal atrial fibrillation with RVR Current Visit: Yes Status: Acute (4) S/P ORIF (open reduction internal fixation) fracture Current Visit: Yes Status: Acute (5) CAD (coronary artery disease) Current Visit: Yes Status: Chronic Qualifiers: Coronary Disease-Associated Artery/Lesion type: [place] artery Circle vs. transplanted heart: [place] heart (6) DM2 (diabetes mellitus, type 2) Current Visit: Yes Status: Chronic (7) HTN (hypertension) Current Visit: Yes Status: Chronic Qualifiers: Hypertension type: primary hypertension Qualified Code(s): I10 - Essential (primary) hypertension (8) VAL (acute kidney injury) Current Visit: No Status: Acute Subjective Date of service: 06/10/21 Principal diagnosis: ORIF, AFIB, Interval history: Patient sitting in bed lethargic Afib 70s-80s on monitor Objective Last Vital Signs Temp 98.0 F 06/10/21 07:57 Pulse 74 06/10/21 07:57 Resp 18 06/10/21 07:57 BP 116/70 06/10/21 07:57 Pulse Ox 99 06/10/21 07:57 - Physical Examination General: No Apparent Distress HEENT: Positive: EOMI, Normocephaly, Mucus Membranes Moist Neck: Positive: neck supple, trachea midline Cardiac: Positive: irregularly irregular Lungs: Positive: Normal Breath Sounds Neuro: Positive: Grossly Intact Abdomen: Positive: Soft, Active Bowel Sounds Skin: Negative: Rash, Suspicious Lesions, Ulceration Musculoskeletal: Normal Range of Motion Extremities: Present: normal, upper extr. pulses. Absent: edema - Labs and Meds Cardiac Enzymes 06/10/21 Range/Units 05:02 AST 73 H (5-40) units/L Coagulation 06/09/21 Range/Units 14:40 PT 17.5 H (12.2-14.9) Sec. INR 1.38 H (0.87-1.13) APTT 37.3 H (24.2-36.6) Sec. CBC 06/09/21 06/10/21 Range/Units 14:41 05:02 WBC 9.5 7.4 (4.5-11.0) K/mm3 RBC 3.18 L 2.99 L (3.65-5.03) M/mm3 Hgb 7.8 L 7.4 L (10.1-14.3) gm/dl Hct 24.8 L 23.4 L (30.3-42.9) % Plt Count 146 151 (140-440) K/mm3 Comprehensive Metabolic Panel 06/09/21 06/10/21 Range/Units 14:41 05:02 Sodium 140 140 (137-145) mmol/L Potassium 3.6 4.0 (3.6-5.0) mmol/L Chloride 103.0 103.7 (98-107) mmol/L Carbon Dioxide 26 24 (22-30) mmol/L BUN 51 H 59 H (7-17) mg/dL Creatinine 2.4 H 2.9 H (0.6-1.2) mg/dL Glucose 171 H 181 H (65-100) mg/dL Calcium 8.7 8.9 (8.4-10.2) mg/dL AST 73 H (5-40) units/L ALT 45 (7-56) units/L Alkaline Phosphatase 83 (35-129) units/L Total Protein 6.6 (6.3-8.2) g/dL Albumin 2.8 L (3.9-5) g/dL - Imaging and Cardiology EKG: report reviewed, image reviewed ANSON: report reviewed - Telemetry EKG Rhythm: Atrial Fibrillation - EKG Supraventricular dysrhythmia: atrial fibrillation
[2021-06-10] MEDS: APIXABAN 2.5 MG TAB PO SCH ×2 (13:39→23:02)
[2021-06-10] MEDS: METOPROLOL TARTRATE 50 MG TAB PO SCH ×3 (13:39→21:17)
[2021-06-10] MEDS: cefTRIAXone/NS 2 GM/100 ML 2 GM/100 ML BAG IV SCH (13:40)
[2021-06-10] MEDS: AZITHROMYCIN/NS 500 MG/250 ML 500 MG/250 ML BAG IV SCH (13:40)
[2021-06-10] MEDS: SODIUM CHLORIDE 0.45% 1000 ML 1,000 ML IV SCH (15:34)
--- NOTE | 2021-06-10 15:51 | Progress Note ---
Assessment and Plan 1. Acute kidney injury: VAL superimposed on CKD. Likely vasomotor VAL. Low FeNa. Renal US b/l hydronephrosis. Monitor renal function. Creatinine level increasing. Started on IV fluids. Avoid nephrotoxic agents. Meds dosage based on GFR. 2. FEN: Hypokalemia, improved. Hyperchloremia, improved, monitor. Replete lytes as needed. Monitor lytes and volume status. 3. Bilateral hydronephrosis: Patient with h/o chronic R hydronephrosis. CT abdomen ordered. 4. L femur displaced fracture: S/p ORIF. 5. Paroxysmal A.fib: Amiodarone and Eliquis. Seen by Cards. 6. H/o CVA. 7. DM type 2: Lantus and SSI. Monitor. 8. HTN: Monitor BP. Adjust meds as needed. 9. LANNY. 10. Hx of seizure: Keppra. 11. Hypochromic anemia: Monitor. Subjective: Patient was seen and examined at the bedside. Examination: General appearance: well-developed, appears stated age, no distress, obese HEENT: LAURENCE, atraumatic Neck: trachea midline Respiratory: Clear to Auscultation Heart: S1S2, no murmur Abdomen: soft, obese, bowel sounds heard, NT Integumentary: no rash Neurologic: Alert, conversing, barely able to move extremities, confused Ext: L leg dressing noted Subjective Date of service: 06/10/21 Principal diagnosis: ORIF, AFIB, Objective - Vital Signs Vital signs: Vital Signs - 12hr 06/10/21 06/10/21 06/10/21 04:53 07:57 11:20 Temperature 97.9 F 98.0 F Pulse Rate 73 74 Respiratory 18 18 Rate Blood Pressure 111/50 116/70 O2 Sat by Pulse 98 99 88 Oximetry - Lab 06/10/21 05:02 06/10/21 05:02 Most recent lab results Calcium 8.9 mg/dL (8.4-10.2) 06/10/21 05:02 Magnesium 1.70 mg/dL (1.7-2.3) 06/08/21 13:45 Urine Creatinine 310.0 mg/dL (0.1-20.0) H 06/10/21 05:30 Urine Sodium 18 mmol/L 06/10/21 05:30 Urine Total Protein 139 mg/dL (5-11.8) H 06/10/21 05:30 Medications & Allergies - Medications Allergies/Adverse Reactions: Allergies No Known Allergies Allergy (Verified 07/12/20 05:04) Home Medications: Home Medications Medication Instructions Recorded Confirmed Last Taken Type Apixaban [Eliquis] 5 mg PO Q12HR #60 tablet 02/14/21 06/06/21 Unknown Rx AtorvaSTATin [Lipitor] 80 mg PO QHS #60 tablet 02/14/21 06/06/21 Unknown Rx Gabapentin 300 mg PO QPM #30 capsule 02/14/21 06/06/21 Unknown Rx Insulin Glargine [Lantus VIAL] 15 units SUB-Q QHS #10 ml 02/14/21 06/06/21 Unkn own Rx levETIRAcetam [Keppra TAB] 500 mg PO BID #60 02/14/21 06/06/21 Unknown Rx Aspirin EC [Halfprin EC] 81 mg PO QDAY #30 tablet. 04/15/21 06/06/21 Unknown Rx ISOSORBIDE MONOnitrate [Imdur ER] 60 mg PO QDAY #30 tablet 04/15/21 06/06/21 Unknown Rx Metoprolol Xl [Metoprolol 50 mg PO BID #60 tablet 04/15/21 06/06/21 Unknown Rx SUCCINATE ER TAB] Sertraline [Zoloft] 100 mg PO QDAY #30 04/15/21 06/06/21 Unknown Rx Topiramate [Topamax] 50 mg PO DAILY #30 tablet 04/15/21 06/06/21 Unknown Rx Famotidine [Pepcid] 20 mg PO BID #30 tablet 04/17/21 06/06/21 Unknown Rx traMADoL [Ultram] 50 mg PO Q6HR PRN #10 tablet 04/17/21 06/06/21 Unknown Rx Active Medications: Generic Name Dose Route Start Last Admin Trade Name Freq PRN Reason Stop Dose Admin Acetaminophen 650 mg 06/04/21 20:00 06/07/21 22:08 Acetaminophen 325 Mg Tab PO 650 mg Q4H PRN Administration Pain MILD(1-3)/Fever >100.5/FERNANDEZ Albuterol 2.5 mg 06/04/21 20:00 Albuterol 2.5 Mg/3 Ml Nebu IH Q4HRT PRN Shortness Of Breath Amiodarone HCl 200 mg 06/09/21 12:00 06/10/21 10:41 Amiodarone 200 Mg Tab PO 200 mg BID TIM Administration Apixaban 2.5 mg 06/10/21 12:00 06/10/21 13:39 Apixaban 2.5 Mg Tab PO 2.5 mg Q12HR TIM Administration Protocol Atorvastatin Calcium 80 mg 06/04/21 22:00 06/09/21 22:05 Atorvastatin 40 Mg Tab PO 80 mg QHS TIM Administration Famotidine 10 mg 06/05/21 22:00 06/10/21 10:41 Famotidine 10 Mg Tab PO 10 mg BID TIM Administration Gabapentin 300 mg 06/05/21 19:00 06/09/21 18:33 Gabapentin 300 Mg Cap PO 300 mg QPM TIM Administration Hydromorphone HCl 0.5 mg 06/04/21 20:00 06/10/21 06:19 Hydromorphone 1 Mg/1 Ml Inj IV 0.5 mg Q3H PRN Administration Pain , Severe (7-10) Ceftriaxone Sodium 2 gm in 100 mls @ 200 mls/hr 06/07/21 11:00 06/10/21 13:40 Rocephin/Ns 2 Gm/100 Ml IV 06/11/21 11:29 100 mls/hr Q24H TIM Administration Protocol Azithromycin 500 mg in 250 mls @ 250 mls/hr 06/07/21 12:00 06/10/21 13:40 Zithromax/Ns IV 06/11/21 12:59 100 mls/hr Q24H TIM Administration Sodium Chloride 1,000 mls @ 75 mls/hr 06/10/21 08:00 06/10/21 15:34 Nacl 0.45% 1000 Ml IV 75 mls/hr DIRECT TIM Administration Insulin Glargine 15 units 06/09/21 22:00 06/09/21 22:19 Insulin Glargine 100 Units/Ml SUB-Q 15 units QHS TIM Administration Insulin Human Lispro 0 unit 06/07/21 07:30 06/10/21 13:44 Insulin Lispro 100 Unit/Ml SUB-Q 3 unit ACHS TIM Administration Protocol Isosorbide Mononitrate 60 mg 06/05/21 10:00 06/10/21 10:40 Isosorbide Mononitrate Er 60 Mg Tab PO 60 mg QDAY TIM Administration Levetiracetam 500 mg 06/04/21 22:00 06/10/21 10:41 Levetiracetam 500 Mg Tab PO 500 mg BID TIM Administration Metoprolol Tartrate 50 mg 06/09/21 14:00 06/10/21 14:00 Metoprolol Tartrate 50 Mg Tab PO Not Given TID TIM Morphine Sulfate 4 mg 06/06/21 16:00 06/08/21 22:47 Morphine 4 Mg/1 Ml Inj IV 4 mg Q4H PRN Administration Pain , Severe (7-10) Ondansetron HCl 4 mg 06/04/21 20:00 06/09/21 22:05 Ondansetron 4 Mg/2 Ml Inj IV 4 mg Q8H PRN Administration Nausea And Vomiting Oxycodone/Acetaminophen 1 tab 06/06/21 16:00 06/10/21 10:40 Oxycodone /Acetaminophen 5-325mg Tab PO 1 tab Q6H PRN Administration Pain, Moderate (4-6) Sertraline HCl 100 mg 06/05/21 10:00 06/10/21 10:40 Sertraline 100 Mg Tab PO 100 mg QDAY TIM Administration Sodium Chloride 10 ml 06/04/21 22:00 06/10/21 10:42 Sodium Chloride 0.9% 10 Ml Flush Syringe IV 10 ml BID TIM Administration Sodium Chloride 10 ml 06/06/21 16:00 Sodium Chloride 0.9% 10 Ml Flush Syringe IV 06/26/21 15:59 PRN NR Topiramate 50 mg 06/05/21 10:00 06/10/21 10:41 Topiramate Tab 25 Mg Tab PO 50 mg DAILY TIM Administration Tramadol HCl 50 mg 06/08/21 09:00 06/08/21 11:26 Tramadol 50 Mg Tab PO 50 mg Q6H PRN Administration Pain, Moderate (4-6)
[2021-06-10] MEDS: GABAPENTIN 300 MG CAP PO SCH (17:54)
--- NOTE | 2021-06-10 22:34 | Cat Scan Report ---
CT ABDOMEN AND PELVIS WITHOUT CONTRAST INDICATION / CLINICAL INFORMATION: Bilateral hydronephrosis.. TECHNIQUE: Axial CT images were obtained through the abdomen and pelvis without IV contrast. All CT scans at this location are performed using CT dose reduction for ALARA by means of automated exposure control. COMPARISON: 04/17/2021 FINDINGS: Examination is degraded in the absence of IV contrast. LOWER CHEST: Bibasilar subsegmental atelectasis. LIVER: No significant abnormality. GALLBLADDER: Cholelithiasis. BILE DUCTS: No significant abnormality. PANCREAS: No significant abnormality. SPLEEN: No significant abnormality. ADRENALS: No significant abnormality. RIGHT KIDNEY / URETER: Prominent right-sided extrarenal pelvis is favored over hydronephrosis given t he lack of ureteral dilatation. It is possible that there is stricture at the ureteropelvic junction level. However, the appearance of this dilated collecting system is unchanged compared with reference exam dating back to March 2021. Right ureter is normal in caliber. LEFT KIDNEY / URETER: No significant abnormality. STOMACH / SMALL BOWEL: No significant abnormality. COLON: Solid stool ball noted within the rectum. There is rectal wall thickening and mild perirectal fatty stranding increased compared to reference exam. APPENDIX: No significant abnormality. PERITONEUM: No free fluid. No free air. No fluid collection. LYMPH NODES: No significant adenopathy. AORTA / ARTERIES: Mild atherosclerotic calcification without acute abnormality. IVC / VEINS: No significant abnormality. URINARY BLADDER: No significant abnormality. REPRODUCTIVE ORGANS: No significant abnormality. ADDITIONAL FINDINGS: None. SKELETAL SYSTEM: Multilevel degenerative changes of the thoracolumbar spine. IMPRESSION: 1. Findings suggestive stercoral colitis, which have progressed compared to reference examination. 2. Right-sided extrarenal pelvis favored over right-sided hydronephrosis given the absence of ureter al dilatation. Regardless, this finding is essentially unchanged compared to reference exam dating ba to March 2021. Signer Name: Reji Smith MD Signed: 06/10/2021 10:29 PM Workstation Name: [id number]
[2021-06-10] MEDS: INSULIN GLARGINE 100 UNITS/ML SUB-Q SCH (23:03)
[2021-06-11 05:56] LABS: Hematocrit 23.3 % (30.3-42.9); Hemoglobin 7.4 gm/dl (10.1-14.3); Mean Corpuscular HGB Conc 32 % (30-34); Mean Corpuscular Volume 77 fl (79-97); Platelet Count 166 K/mm3 (140-440); Red Blood Count 3.02 M/mm3 (3.65-5.03); Red Cell Distribution Width 16.9 % (13.2-15.2)
[2021-06-11] MEDS: SODIUM CHLORIDE 0.45% 1000 ML 1,000 ML IV SCH (06:47)
[2021-06-11] MEDS: INSULIN LISPRO 100 UNIT/ML SUB-Q SCH ×4 (07:30→21:15)
--- NOTE | 2021-06-11 08:44 | Discharge Summary ---
Providers - Providers Date of Admission: 06/04/21 18:55 Attending physician: BLAKE MAGANA MD 06/05/21 11:39 Consult to Physician [CONS] Urgent Comment: Consulting Provider: DANIELE WEBB Physician Instructions: Reason For Exam: Comminuted/ displaced/ left femur fracture 06/06/21 15:27 Physical Therapy Evaluation and Treat [CONS] Routine Comment: Reason For Exam: Postop evaluation Weight bearing status?: Partial wt bearing Assistive devices?: Yes If so list: Walker 06/09/21 07:52 Consult to Physician [CONS] Routine Comment: Consulting Provider: ROSELIA HENRY Physician Instructions: Reason For Exam: sherwin on ckd 06/09/21 07:53 Consult to Physician [CONS] Routine Comment: Consulting Provider: AGUSTIN ODELL Physician Instructions: Reason For Exam: afib with rvr Primary care physician: EPIFANIO DANIEL MD Hospitalization Reason for admission: Fall Condition: Stable Hospital course: Additional diagnoses Dementia with exacerbated encephalopathy Original Note: Assessment and Plan Assessment and plan: 65-year-old morbidly obese female patient with significant past medical history of hypertension diabetes dyslipidemia CVA my congestive heart failure paroxysmal A. fib on Eliquis seizure disorder was admitted through emergency room with history of fall with displaced left femur fracture, orthopedic evaluated the patient and patient subsequently underwent ORIF procedure, today POD 1 Today patient fell on the floor, febrile with T-max of 102.9, chest x-ray no acute abnormality, empiric antibiotics started, pancultures sent, consult ID if needed 06/07/21; continue empiric antibiotics Follow cultures, follow orthopedic recommendations consider ID consult if needed follow [place] PCR test called next of kin patient's older sister Ms. Shekhar Hill at [phone] and updated her about patient's condition, tests and reports ,surgical procedure, her fall this afternoon, treatment and discharge planning and encouraged her to call and discuss with the case management for any special requests and needs she may have for her sister. She was appreciative of my call and I encouraged her to call back if she has any new questions or concerns. 06/08: Continue supportive care and PT/OT, POD 2. Clear for discharge in 24 to 48hr if no further fever Patient also with CKD AT BASELINE. Discontinue toradol. use other pain meds, possible ultram Awaiting repeat studies today Adjust insulin for Better BP control ID consult pending 06/09: Patient seen and examined still with mild tachycardia likely secondary to atrial fibrillation with RVR will obtain cardiology evaluation. Will resume patient's Eliquis. Stop Lovenox. Patient does have a 1 g drop in hemoglobin we will monitor this carefully considering anticoagulation. No clear evidence of bleeding at the surgical site today's postop day 3. Has mild increase in crea tinine will obtain nephrology consultation due to patient's underlying congestive heart failure and refraining from given fluids at this time. Continue to avoid nephrotoxic medications. Monitor platelet closely as patient does have mild downward trend again this supports the decision of discontinuing Lovenox due to possible HIT. No fever noted today 06/10; Patient with worsening renal function, amidarone added to assist with management of Atrial fibrillation. I spoke with the sister Ms Corrigan, who reports that since her Last stroke the patient has had intermittent delirium progressing to dementia. I did tell her the patient is pretty confused today and she says that that is close to her baseline. They do have an outpatient nephrology appointment but her kidney numbers are worse than her baseline once we begin to notice some trending down we will proceed with discharge. She also states that patient is ambulatory will continue PT evaluation and preparation for discharge 06/11: Patient seen and examined this morning she realizes that she is in the hospital. She appears to be doing much better. Clinically stable at this time for discharge to half-way facility renal function is steady. Discussed with fleet service clerk patient can be followed outpatient. No new issues reported to me overnight further changes made by family assessment worker including addition of amiodarone has been rectified. Patient will also follow with family assessment worker. --Febrile illness; Current Visit: Yes Status: Acute Check blood cultures, urine cultures, chest x-ray Empiric antibiotics with Rocephin and Zithromax [place] PCR test, Consider ID consultation if needed Antibiotics -- Displaced fracture of left femur Current Visit: Yes Status: Acute Pain control, supportive care. Ortho evaluated the patient s/p ORIF continue postop care Physical therapy occupational therapy called next of kin patient's older sister Ms. Shekhar Hill at [phone] and updated her about patient's condition, tests and reports ,surgical procedure, her fall this afternoon, treatment and discharge planning and encouraged her to call and discuss with the case management for any special requests and needs she may have for her sister. She was appreciative of my call and I encouraged her to call back if she has any new questions or concerns. --s/p fall mechanical today Current Visit: Yes Status: Acute Fall precautions, x-ray left knee post fall no abnormality PT, OT supportive care --Obesity ; BMI 38.6 Current Visit: Yes Status: Acute Patient needs weight reduction dietary modification Exercise as tolerated when medically stable Need outpatient sleep study to rule out obstructive sleep apnea --Paroxysmal atrial fibrillation Current Visit: Yes Status: Acute Rate control, Elil[place] held, due to ORIF surgery Resume when cleared by Ortho --Diabetes type II Current Visit: Yes Status: Acute Accu-Chek sliding scale coverage ADA diet Long-acting insulin as needed --Hypertension; moderate control Current Visit: No Status: Chronic Continue current antihypertensives, as needed medications Closely monitor blood pressures and adjust as needed -- CHF (congestive heart failure) EF 45 to 50%[01/2021] Current Visit: Yes Status: Acute Mild systolic dysfunction EF 45 to 50% Well compensated at this time, continue supportive care --sherwin on ckd Secondary to vasomotor nephropathy Disposition: [facility] Final Discharge Diagnosis (Prints w/discharge instructions): Displaced fracture of left femur complicated by atrial fibrillation with RVR Time spent for discharge: 35 minutes Core Measure Documentation - Palliative Care Palliative Care/ Comfort Measures: Not Applicable - Core Measures Any of the following diagnoses?: none Exam - Physical Exam Narrative exam: General appearance: Present: mild distress, obese (Morbidly obese), other (Febrile) - EENT Eyes: Present: PERRL, EOM intact - Neck Neck: Present: supple, normal ROM - Respiratory Respiratory effort: normal Respiratory: bilateral: diminished, rhonchi, negative: rales, wheezing - Cardiovascular Rhythm: regular Heart Sounds: Present: S1 & S2 irregularly irregular with mild tachycardia - Extremities Extremities: no ischemia, No edema, right knee dressing in place - Abdominal General gastrointestinal: soft, non-tender, non-distended, normal bowel sounds - Integumentary Integumentary: Present: clear, warm, knee dressing - Psychiatric Psychiatric: appropriate mood - Neurologic Neurologic: CNII-XII intact, moves all extremities, DEMENTIA - Constitutional Vitals: Temp Pulse Resp BP Pulse Ox 98.3 F 84 18 130/70 99 06/11/21 05:40 06/11/21 05:40 06/11/21 05:40 06/11/21 05:40 06/11/21 05:40 Plan Activity: advance as tolerated, fall precautions Diet: low fat Special Instructions: record daily weights, record daily BP diary, physical therapy, occupational therapy Follow up with: EPIFANIO DANIEL MD [Primary Care Provider] - 7 Days ROSELIA HENRY MD [Staff Physician] - 7 Days ANGELA WALSH MD [Staff Physician] - 7 Days DANIELE WEBB MD [Staff Physician] - 7 Days Prescriptions: Amiodarone [Cordarone 200 MG TAB] 200 mg PO BID #60 tablet oxyCODONE /ACETAMINOPHEN [Percocet 5/325 mg] 1 tab PO Q6H PRN #14 tablet PRN Reason: Pain, Moderate (4-6)
[2021-06-11] MEDS: traMADol 50 MG TAB PO PRN (10:10)
[2021-06-11] MEDS: APIXABAN 2.5 MG TAB PO SCH ×2 (10:10→21:14)
[2021-06-11] MEDS: levETIRAcetam 500 MG TAB PO SCH ×2 (10:11→21:13)
[2021-06-11] MEDS: SERTRALINE 100 MG TAB PO SCH (10:11)
[2021-06-11] MEDS: AMIODARONE 200 MG TAB PO SCH (10:11)
[2021-06-11] MEDS: FAMOTIDINE 10 MG TAB PO SCH ×2 (10:11→21:13)
[2021-06-11] MEDS: TOPIRAMATE TAB 25 MG TAB PO SCH (10:11)
[2021-06-11] MEDS: cefTRIAXone/NS 2 GM/100 ML 2 GM/100 ML BAG IV SCH (10:17)
[2021-06-11] MEDS: METOPROLOL TARTRATE 50 MG TAB PO SCH ×3 (10:17→21:14)
--- NOTE | 2021-06-11 10:54 | Progress Note ---
Assessment and Plan 1. Acute kidney injury: VAL superimposed on CKD. Likely vasomotor VAL. Low FeNa. Renal US b/l hydronephrosis. IV fluids. Monitor renal function. Creatinine level is slightly better today. Avoid nephrotoxic agents. Meds dosage based on GFR. 2. FEN: Hypokalemia, improved. Hyperchloremia, improved, monitor. Replete lytes as needed. Monitor lytes and volume status. 3. Bilateral hydronephrosis: CT favours R extra renal pelvis. 4. L femur displaced fracture: S/p ORIF. 5. Paroxysmal A.fib: Amiodarone and Eliquis. Seen by Cards. 6. H/o CVA. 7. DM type 2: Lantus and SSI. Monitor. 8. HTN: Monitor BP. Adjust meds as needed. 9. LANNY. 10. Hx of seizure: Keppra. 11. Hypochromic anemia: Monitor. Subjective: Patient was seen and examined at the bedside. Examination: General appearance: well-developed, appears stated age, no distress, obese HEENT: [place], atraumatic Neck: trachea midline Respiratory: Clear to Auscultation Heart: S1S2, no murmur Abdomen: soft, obese, bowel sounds heard, NT Integumentary: no rash Neurologic: Alert, conversing, barely able to move extremities, confused Ext: L leg dressing noted Subjective Date of service: 06/11/21 Principal diagnosis: ORIF, AFIB, Objective - Vital Signs Vital signs: Vital Signs - 12hr 06/11/21 06/11/21 06/11/21 00:04 05:40 07:48 Temperature 98.3 F 98.3 F 98.0 F Pulse Rate 76 84 82 Respiratory 12 18 18 Rate Blood Pressure 128/77 145/78 Blood Pressure 130/70 [Left] O2 Sat by Pulse 100 99 99 Oximetry 06/11/21 06/11/21 09:08 10:17 Temperature Pulse Rate 82 Respiratory Rate Blood Pressure 145/78 Blood Pressure [Left] O2 Sat by Pulse 94 Oximetry - Lab 06/11/21 05:21 06/12/21 05:04 Most recent lab results Calcium 9.0 mg/dL (8.4-10.2) 06/11/21 05:21 Magnesium 1.70 mg/dL (1.7-2.3) 06/08/21 13:45 Urine Creatinine 310.0 mg/dL (0.1-20.0) H 06/10/21 05:30 Urine Sodium 18 mmol/L 06/10/21 05:30 Urine Total Protein 139 mg/dL (5-11.8) H 06/10/21 05:30 Medications & Allergies - Medications Allergies/Adverse Reactions: Allergies No Known Allergies Allergy (Verified 07/12/20 05:04) Home Medications: Home Medications Medication Instructions Recorded Confirmed Last Taken Type Apixaban [Eliquis] 5 mg PO Q12HR #60 tablet 02/14/21 06/06/21 Unknown Rx AtorvaSTATin [Lipitor] 80 mg PO QHS #60 tablet 02/14/21 06/06/21 Unknown Rx Gabapentin 300 mg PO QPM #30 capsule 02/14/21 06/06/21 Unknown Rx Insulin Glargine [Lantus VIAL] 15 units SUB-Q QHS #10 ml 02/14/21 06/06/21 Unknown Rx levETIRAcetam [Keppra TAB] 500 mg PO BID #60 02/14/21 06/06/21 Unknown Rx Aspirin EC [Halfprin EC] 81 mg PO QDAY #30 tablet. 04/15/21 06/06/21 Unknown Rx ISOSORBIDE MONOnitrate [Imdur ER] 60 mg PO QDAY #30 tablet 04/15/21 06/06/21 Unknown Rx Metoprolol Xl [Metoprolol 50 mg PO BID #60 tablet 04/15/21 06/06/21 Unknown Rx SUCCINATE ER TAB] Sertraline [Zoloft] 100 mg PO QDAY #30 04/15/21 06/06/21 Unknown Rx Topiramate [Topamax] 50 mg PO DAILY #30 tablet 04/15/21 06/06/21 Unknown Rx Famotidine [Pepcid] 20 mg PO BID #30 tablet 04/17/21 06/06/21 Unknown Rx traMADoL [Ultram 50 MG tab] 50 mg PO Q6HR PRN #10 tablet 04/17/21 06/06/21 Unknown Rx Amiodarone [Cordarone 200 MG TAB] 200 mg PO BID #60 tablet 06/11/21 Unknown Rx oxyCODONE /ACETAMINOPHEN [Percocet 1 tab PO Q6H PRN #14 tablet 06/11/21 Unknown Rx 5/325 mg] Active Medications: Generic Name Dose Route Start Last Admin Trade Name Freq PRN Reason Stop Dose Admin Acetaminophen 650 mg 06/04/21 20:00 06/07/21 22:08 Acetaminophen 325 Mg Tab PO 650 mg Q4H PRN Administration Pain MILD(1-3)/Fever >100.5/FERNANDEZ Albuterol 2.5 mg 06/04/21 20:00 Albuterol 2.5 Mg/3 Ml Nebu IH Q4HRT PRN Shortness Of Breath Amiodarone HCl 200 mg 06/09/21 12:00 06/11/21 10:11 Amiodarone 200 Mg Tab PO 200 mg BID TIM Administration Apixaban 2.5 mg 06/10/21 12:00 06/11/21 10:10 Apixaban 2.5 Mg Tab PO 2.5 mg Q12HR TIM Administration Protocol Atorvastatin Calcium 80 mg 06/04/21 22:00 06/10/21 23:02 Atorvastatin 40 Mg Tab PO 80 mg QHS TIM Administration Famotidine 10 mg 06/05/21 22:00 06/11/21 10:11 Famotidine 10 Mg Tab PO 10 mg BID TIM Administration Gabapentin 300 mg 06/05/21 19:00 06/10/21 17:54 Gabapentin 300 Mg Cap PO 300 mg QPM TIM Administration Hydromorphone HCl 0.5 mg 06/04/21 20:00 06/10/21 06:19 Hydromorphone 1 Mg/1 Ml Inj IV 0.5 mg Q3H PRN Administration Pain , Severe (7-10) Ceftriaxone Sodium 2 gm in 100 mls @ 200 mls/hr 06/07/21 11:00 06/11/21 10:17 Rocephin/Ns 2 Gm/100 Ml IV 06/11/21 11:29 100 mls/hr Q24H TIM Administration Protocol Azithromycin 500 mg in 250 mls @ 250 mls/hr 06/07/21 12:00 06/10/21 13:40 Zithromax/Ns IV 06/11/21 12:59 100 mls/hr Q24H TIM Administration Sodium Chloride 1,000 mls @ 75 mls/hr 06/10/21 08:00 06/11/21 06:47 Nacl 0.45% 1000 Ml IV 75 mls/hr DIRECT TIM Administration Insulin Glargine 15 units 06/09/21 22:00 06/10/21 23:03 Insulin Glargine 100 Units/Ml SUB-Q 15 units QHS TIM Administration Insulin Human Lispro 0 unit 06/07/21 07:30 06/11/21 07:30 Insulin Lispro 100 Unit/Ml SUB-Q Not Given ACHS [facility] Protocol Isosorbide Mononitrate 60 mg 06/05/21 10:00 06/11/21 10:10 Isosorbide Mononitrate Er 60 Mg Tab PO 60 mg QDAY TIM Administration Levetiracetam 500 mg 06/04/21 22:00 06/11/21 10:11 Levetiracetam 500 Mg Tab PO 500 mg BID TIM Administration Metoprolol Tartrate 50 mg 06/09/21 14:00 06/11/21 10:17 Metoprolol Tartrate 50 Mg Tab PO 50 mg TID TIM Administration Morphine Sulfate 4 mg 06/06/21 16:00 06/08/21 22:47 Morphine 4 Mg/1 Ml Inj IV 4 mg Q4H PRN Administration Pain , Severe (7-10) Ondansetron HCl 4 mg 06/04/21 20:00 06/09/21 22:05 Ondansetron 4 Mg/2 Ml Inj IV 4 mg Q8H PRN Administration Nausea And Vomiting Oxycodone/Acetaminophen 1 tab 06/06/21 16:00 06/10/21 10:40 Oxycodone /Acetaminophen 5-325mg Tab PO 1 tab Q6H PRN Administration Pain, Moderate (4-6) Sertraline HCl 100 mg 06/05/21 10:00 06/11/21 10:11 Sertraline 100 Mg Tab PO 100 mg QDAY TIM Administration Sodium Chloride 10 ml 06/04/21 22:00 06/11/21 10:23 Sodium Chloride 0.9% 10 Ml Flush Syringe IV 10 ml BID TIM Administration Sodium Chloride 10 ml 06/06/21 16:00 Sodium Chloride 0.9% 10 Ml Flush Syringe IV 06/26/21 15:59 PRN NR Topiramate 50 mg 06/05/21 10:00 06/11/21 10:11 Topiramate Tab 25 Mg Tab PO 50 mg DAILY TIM Administration Tramadol HCl 50 mg 06/08/21 09:00 06/11/21 10:10 Tramadol 50 Mg Tab PO 50 mg Q6H PRN Administration Pain, Moderate (4-6)
[2021-06-11] MEDS: AZITHROMYCIN/NS 500 MG/250 ML 500 MG/250 ML BAG IV SCH (11:36)
[2021-06-11] MEDS: oxyCODONE /ACETAMINOPHEN 5-325MG TAB PO PRN (13:18)
--- NOTE | 2021-06-11 13:44 | Progress Note ---
Assessment and Plan Paroxysmal atrial fibrillation with RVR CAD HTN * Telemetry reviewed: afib 70with no events * Increase metoprolol dose as BP permits. Decreased Amio 200mg PO QD * Echocardiogram of January 2021 revealed an ejection fraction of 45-50% with LVH. * Negative stress MPI in June 2020. * Anticoagulated on Eliquis. S/P ORIF (open reduction internal fixation) fracture * Followed by Ortho Acute kidney injury superimposed on CKD * Followed by nephrology Patient may follow up with Dr. DRISS Vaughn, [facility], 1-2 weeks a fter discharge. Patient seen in conjunction with Dr. Amarilys Vaughn who agrees with this plan of care. Will continue to follow - Patient Problems (1) Displaced fracture of femur Current Visit: Yes Status: Acute (2) Obesity hypoventilation syndrome Current Visit: Yes Status: Acute (3) Paroxysmal atrial fibrillation with RVR Current Visit: Yes Status: Acute (4) S/P ORIF (open reduction internal fixation) fracture Current Visit: Yes Status: Acute (5) CAD (coronary artery disease) Current Visit: Yes Status: Chronic Qualifiers: Coronary Disease-Associated Artery/Lesion type: [place] artery [place] vs. transplanted heart: [place] heart (6) DM2 (diabetes mellitus, type 2) Current Visit: Yes Status: Chronic (7) HTN (hypertension) Current Visit: Yes Status: Chronic Qualifiers: Hypertension type: primary hypertension Qualified Code(s): I10 - Essential (primary) hypertension (8) VAL (acute kidney injury) Current Visit: No Status: Acute Subjective Date of service: 06/11/21 Principal diagnosis: ORIF, AFIB, Interval history: Patient sitting in bed more alert this AM Afib 70s on monitor with no events Objective Vital Signs Temp Pulse Resp BP BP Pulse Ox 06/11/21 10:17 82 145/78 06/11/21 09:08 94 06/11/21 07:48 98.0 F 82 18 145/78 99 06/11/21 05:40 98.3 F 84 18 130/70 99 06/11/21 00:04 98.3 F 76 12 128/77 100 06/10/21 22:00 98 06/10/21 21:17 95 H 122/67 06/10/21 19:04 98.1 F 95 H 20 122/67 100 06/10/21 15:44 98.2 F 136 H 20 118/69 100 06/10/21 14:00 102 H - Physical Examination General: No Apparent Distress HEENT: Positive: EOMI, Normocephaly, Mucus Membranes Moist Neck: Positive: neck supple, trachea midline Cardiac: Positive: irregularly irregular Lungs: Positive: Normal Breath Sounds Neuro: Positive: Grossly Intact Abdomen: Positive: Soft, Active Bowel Sounds Skin: Negative: Rash, Suspicious Lesions, Ulceration Musculoskeletal: Normal Range of Motion Extremities: Present: normal, upper extr. pulses. Absent: edema - Labs and Meds CBC 06/11/21 Range/Units 05:21 WBC 6.1 (4.5-11.0) K/mm3 RBC 3.02 L (3.65-5.03) M/mm3 Hgb 7.4 L (10.1-14.3) gm/dl Hct 23.3 L (30.3-42.9) % Plt Count 166 (140-440) K/mm3 Comprehensive Metabolic Panel 06/11/21 Range/Units 05:21 Sodium 141 (137-145) mmol/L Potassium 3.9 (3.6-5.0) mmol/L Chloride 106.0 (98-107) mmol/L Carbon Dioxide 27 (22-30) mmol/L BUN 69 H (7-17) mg/dL Creatinine 2.8 H (0.6-1.2) mg/dL Glucose 143 H (65-100) mg/dL Calcium 9.0 (8.4-10.2) mg/dL - Imaging and Cardiology EKG: report reviewed, image reviewed - Telemetry EKG Rhythm: Atrial Fibrillation - EKG Supraventricular dysrhythmia: atrial fibrillation
[2021-06-11] MEDS: INSULIN GLARGINE 100 UNITS/ML SUB-Q SCH (21:14)
[2021-06-12] MEDS: GABAPENTIN 300 MG CAP PO SCH (07:50)
[2021-06-12] MEDS: INSULIN LISPRO 100 UNIT/ML SUB-Q SCH ×2 (08:00→12:00)
[2021-06-12] MEDS ORDERED: AMIODARONE 200 MG TAB PO SCH (10:00)
[2021-06-12] MEDS: levETIRAcetam 500 MG TAB PO SCH (10:11)
[2021-06-12] MEDS: FAMOTIDINE 10 MG TAB PO SCH (10:12)
[2021-06-12] MEDS: TOPIRAMATE TAB 25 MG TAB PO SCH (10:12)
[2021-06-12] MEDS: oxyCODONE /ACETAMINOPHEN 5-325MG TAB PO PRN (10:13)
[2021-06-12] MEDS: APIXABAN 2.5 MG TAB PO SCH (10:13)
[2021-06-12] MEDS: SERTRALINE 100 MG TAB PO SCH (10:14)
[2021-06-12] MEDS: METOPROLOL TARTRATE 50 MG TAB PO SCH ×2 (10:19→16:43)
--- NOTE | 2021-06-12 11:37 | Progress Note ---
Assessment and Plan Paroxysmal atrial fibrillation with RVR CAD HTN * Telemetry reviewed: afib 90s with no events * Increase metoprolol dose as BP permits. Continue Amio 200mg PO QD * Echocardiogram of January 2021 revealed an ejection fraction of 45-50% with LVH. * Negative stress MPI in June 2020. * Anticoagulated on Eliquis. S/P ORIF (open reduction internal fixation) fracture * Followed by Ortho Acute kidney injury superimposed on CKD * Followed by nephrology Patient is stable from a cardiac perspective. Will see as needed. Patient may follow up with Dr. DRISS Vaughn, [facility], on 07/18/2021 at 10:00am at [facility] location. Patient seen in conjunction with Dr. Amarilys Vaughn who agrees with this plan of care. - Patient Problems (1) Displaced fracture of femur Current Visit: Yes Status: Acute (2) Obesity hypoventilation syndrome Current Visit: Yes Status: Acute (3) Paroxysmal atrial fibrillation with RVR Current Visit: Yes Status: Acute (4) S/P ORIF (open reduction internal fixation) fracture Current Visit: Yes Status: Acute (5) CAD (coronary artery disease) Current Visit: Yes Status: Chronic Qualifiers: Coronary Disease-Associated Artery/Lesion type: [place] artery [place] vs. transplanted heart: [place] heart (6) DM2 (diabetes mellitus, type 2) Current Visit: Yes Status: Chronic (7) HTN (hypertension) Current Visit: Yes Status: Chronic Qualifiers: Hypertension type: primary hypertension Qualified Code(s): I10 - Essential (primary) hypertension (8) VAL (acute kidney injury) Current Visit: No Status: Acute Subjective Date of service: 06/12/21 Principal diagnosis: ORIF, AFIB, Interval history: Patient sitting in bed. No complaints Afib 90s on monitor with no events Objective Vital Signs Temp Pulse Resp BP Pulse Ox 06/12/21 10:12 121 H 153/83 06/12/21 07:42 98.4 F 121 H 18 150/83 98 06/12/21 03:21 98.3 F 86 16 140/83 100 06/12/21 03:00 90 06/11/21 23:05 98.3 F 75 16 137/83 93 06/11/21 22:45 96 06/11/21 19:04 98.4 F 104 H 16 151/78 99 06/11/21 16:49 98.2 F 108 H 18 121/71 92 06/11/21 14:00 86 06/11/21 11:48 98.2 F 18 139/75 - Physical Examination General: No Apparent Distress HEENT: Positive: EOMI, Normocephaly, Mucus Membranes Moist Neck: Positive: neck supple, trachea midline Cardiac: Positive: irregularly irregular Lungs: Positive: Normal Breath Sounds Neuro: Positive: Grossly Intact Abdomen: Positive: Soft, Active Bowel Sounds Skin: Negative: Rash, Suspicious Lesions, Ulceration Musculoskeletal: Normal Range of Motion Extremities: Present: normal, upper extr. pulses. Absent: edema - Labs and Meds Comprehensive Metabolic Panel 06/12/21 Range/Units 05:04 Creatinine 2.4 H (0.6-1.2) mg/dL - Imaging and Cardiology EKG: report reviewed, image reviewed - Telemetry EKG Rhythm: Atrial Fibrillation - EKG Supraventricular dysrhythmia: atrial fibrillation
--- NOTE | 2021-06-12 14:38 | Progress Note ---
Assessment and Plan Assessment and plan: 65-year-old morbidly obese female patient with significant past medical history of hypertension diabetes dyslipidemia CVA my congestive heart failure paroxysmal A. fib on Eliquis seizure disorder was admitted through emergency room with history of fall with displaced left femur fracture, orthopedic evaluated the patient and patient subsequently underwent ORIF procedure, today POD 1 Today patient fell on the floor, febrile with T-max of 102.9, chest x-ray no acute abnormality, empiric antibiotics started, pancultures sent, consult ID if needed 06/07/21; continue empiric antibiotics Follow cultures, follow orthopedic recommendations consider ID consult if needed follow georges PCR test called next of kin patient's older sister Ms. Shekhar Hill at [phone] and updated her about patient's condition, tests and reports ,surgical procedure, her fall this afternoon, treatment and discharge planning and encouraged her to call and discuss with the case management for any special requests and needs she may have for her sister. She was appreciative of my call and I encouraged her to call back if she has any new questions or concerns. 06/08: Continue supportive care and PT/OT, POD 2. Clear for discharge in 24 to 48hr if no further fever Patient also with CKD AT BASELINE. Discontinue toradol. use other pain meds, possible ultram Awaiting repeat studies today Adjust insulin for Better BP control ID consult pending 06/09: Patient seen and examined still with mild tachycardia likely secondary to atrial fibrillation with RVR will obtain cardiology evaluation. Will resume patient's Eliquis. Stop Lovenox. Patient does have a 1 g drop in hemoglobin we will monitor this carefully considering anticoagulation. No clear evidence of bleeding at the surgical site today's postop day 3. Has mild increase in creatinine will obtain nephrology consultation due to patient's underlying congestive heart failure and refraining from given fluids at this time. Continue to avoid nephrotoxic medications. Monitor platelet closely as patient does have mild downward trend again this supports the decision of discontinuing Lovenox due to possible HIT. No fever noted today 06/10; Patient with worsening renal function, amidarone added to assist with management of Atrial fibrillation. I spoke with the sister Ms Corrigan, who reports that since her Last stroke the patient has had intermittent delirium progressing to dementia. I did tell her the patient is pretty confused today and she says that that is close to her baseline. They do have an outpatient nephrology appointment but her kidney numbers are worse than her baseline once we begin to notice some trending down we will proceed with discharge. She also states that patient is ambulatory will continue PT evaluation and preparation for discharge 06/11: Patient seen and examined this morning she realizes that she is in the hospital. She appears to be doing much better. Clinically stable at this time for discharge to [facility] facility renal function is steady. Discussed with storeperson patient can be followed outpatient. No new issues reported to me overnight further changes made by sales force developer including addition of amioda arben has been rectified. Patient will also follow with sales force developer. 06/12: Patient seen and examined, no new complaints, clinically stable. awaiting discharge --Febrile illness; Current Visit: Yes Status: Acute Check blood cultures, urine cultures, chest x-ray Empiric antibiotics with Rocephin and Zithromax Georges PCR test, Consider ID consultation if needed Antibiotics -- Displaced fracture of left femur Current Visit: Yes Status: Acute Pain control, supportive care. Ortho evaluated the patient s/p ORIF continue postop care Physical therapy occupational therapy called next of kin patient's older sister Ms. Shekhar Hill at [phone] and updated her about patient's condition, tests and reports ,surgical procedure, her fall this afternoon, treatment and discharge planning and encouraged her to call and discuss with the case management for any special requests and needs she may have for her sister. She was appreciative of my call and I encouraged her to call back if she has any new questions or concerns. --s/p fall mechanical today Current Visit: Yes Status: Acute Fall precautions, x-ray left knee post fall no abnormality PT, OT supportive care --Obesity ; BMI 38.6 Current Visit: Yes Status: Acute Patient needs weight reduction dietary modification Exercise as tolerated when medically stable Need outpatient sleep study to rule out obstructive sleep apnea --Paroxysmal atrial fibrillation Current Visit: Yes Status: Acute Rate control, Marcelina lui, due to ORIF surgery Resume when cleared by Ortho --Diabetes type II Current Visit: Yes Status: Acute Accu-Chek sliding scale coverage ADA diet Long-acting insulin as needed --Hypertension; moderate control Current Visit: No Status: Chronic Continue current antihypertensives, as needed medications Closely monitor blood pressures and adjust as needed -- CHF (congestive heart failure) EF 45 to 50%[01/2021] Current Visit: Yes Status: Acute Mild systolic dysfunction EF 45 to 50% Well compensated at this time, continue supportive care --sherwin on ckd Secondary to vasomotor nephropathy History Interval history: Patient seen and examined no acute distress at this time resting comfortably. No pain at surgical site. CONFUSED Hospitalist Physical - Physical exam Narrative exam: General appearance: Present: mild distress, obese (Morbidly obese), other (Febrile) - EENT Eyes: Present: PERRL, EOM intact - Neck Neck: Present: supple, normal ROM - Respiratory Respiratory effort: normal Respiratory: bilateral: diminished, rhonchi, negative: rales, wheezing - Cardiovascular Rhythm: regular Heart Sounds: Present: S1 & S2 irregularly irregular with mild tachycardia - Extremities Extremities: no ischemia, No edema, right knee dressing in place - Abdominal General gastrointestinal: soft, non-tender, non-distended, normal bowel sounds - Integumentary Integumentary: Present: clear, warm, knee dressing - Psychiatric Psychiatric: appropriate mood - Neurologic Neurologic: CNII-XII intact, moves all extremities, DEMENTIA - Constitutional Vitals: Temp Pulse Resp BP Pulse Ox 98.4 F 121 H 18 153/83 98 06/12/21 07:42 06/12/21 10:12 06/12/21 07:42 06/12/21 10:12 06/12/21 10:00 General appearance: Present: mild distress, obese (Morbidly obese), other (Febrile) Results - Labs CBC & Chem 7: 06/11/21 05:21 06/12/21 05:04 Labs: Laboratory Last Values WBC 6.1 K/mm3 (4.5-11.0) 06/11/21 05:21 RBC 3.02 M/mm3 (3.65-5.03) L 06/11/21 05:21 Hgb 7.4 gm/dl (10.1-14.3) L 06/11/21 05:21 Hct 23.3 % (30.3-42.9) L 06/11/21 05:21 MCV 77 fl (79-97) L 06/11/21 05:21 MCH 24 pg (28-32) L 06/11/21 05:21 MCHC 32 % (30-34) 06/11/21 05:21 RDW 16.9 % (13.2-15.2) H 06/11/21 05:21 Plt Count 166 K/mm3 (140-440) 06/11/21 05:21 Lymph % (Auto) 10.2 % (13.4-35.0) L 06/08/21 13:45 Mccone % (Auto) 15.5 % (0.0-7.3) H 06/08/21 13:45 Eos % (Auto) 0.8 % (0.0-4.3) 06/08/21 13:45 Baso % (Auto) 0.2 % (0.0-1.8) 06/08/21 13:45 Lymph # (Auto) 1.1 K/mm3 (1.2-5.4) L 06/08/21 13:45 Mccone # (Auto) 1.7 K/mm3 (0.0-0.8) H 06/08/21 13:45 Eos # (Auto) 0.1 K/mm3 (0.0-0.4) 06/08/21 13:45 Baso # (Auto) 0.0 K/mm3 (0.0-0.1) 06/08/21 13:45 Seg Neutrophils % 73.3 % (40.0-70.0) H 06/08/21 13:45 Seg Neutrophils # 8.0 K/mm3 (1.8-7.7) H 06/08/21 13:45 PT 17.5 Sec. (12.2-14.9) H 06/09/21 14:40 INR 1.38 (0.87-1.13) H 06/09/21 14:40 APTT 37.3 Sec. (24.2-36.6) H 06/09/21 14:40 Sodium 141 mmol/L (137-145) 06/11/21 05:21 Potassium 3.9 mmol/L (3.6-5.0) 06/11/21 05:21 Chloride 106.0 mmol/L (98-107) 06/11/21 05:21 Carbon Dioxide 27 mmol/L (22-30) 06/11/21 05:21 Anion Gap 12 mmol/L 06/11/21 05:21 BUN 69 mg/dL (7-17) H 06/11/21 05:21 Creatinine 2.4 mg/dL (0.6-1.2) H 06/12/21 05:04 Estimated GFR 25 ml/min 06/12/21 05:04 BUN/Creatinine Ratio 25 % 06/11/21 05:21 Glucose 143 mg/dL (65-100) H 06/11/21 05:21 POC Glucose 150 mg/dL (70-105) H 06/12/21 12:02 Calcium 9.0 mg/dL (8.4-10.2) 06/11/21 05:21 Magnesium 1.70 mg/dL (1.7-2.3) 06/08/21 13:45 Total Bilirubin 0.30 mg/dL (0.1-1.2) 06/10/21 05:02 AST 73 units/L (5-40) H 06/10/21 05:02 ALT 45 units/L (7-56) 06/10/21 05:02 Alkaline Phosphatase 83 units/L (35-129) 06/10/21 05:02 Total Protein 6.6 g/dL (6.3-8.2) 06/10/21 05:02 Albumin 2.8 g/dL (3.9-5) L 06/10/21 05:02 Albumin/Globulin Ratio 0.7 % 06/10/21 05:02 TSH 0.889 mlU/mL (0.270-4.200) 06/10/21 05:02 Urine Color Milagros (Yellow) 06/10/21 05:30 Urine Turbidity Slightly-cloudy (Clear) 06/10/21 05:30 Urine pH 5.0 (5.0-7.0) 06/10/21 05:30 Ur Specific Tyler 1.020 (1.003-1.030) 06/10/21 05:30 Urine Protein 100 mg/dl mg/dL (Negative) 06/10/21 05:30 Urine Glucose (UA) Neg mg/dL (Negative) 06/10/21 05:30 Urine Ketones Neg mg/dL (Negative) 06/10/21 05:30 Urine Blood Neg (Negative) 06/10/21 05:30 Urine Nitrite Neg (Negative) 06/10/21 05:30 Urine Bilirubin Neg (Negative) 06/10/21 05:30 Urine Urobilinogen < 2.0 mg/dL (<2.0) 06/10/21 05:30 Ur Leukocyte Esterase Neg (Negative) 06/10/21 05:30 Urine WBC (Auto) 6.0 /HPF (0.0-6.0) 06/10/21 05:30 Urine RBC (Auto) 2.0 /HPF (0.0-6.0) 06/10/21 05:30 U Epithel Cells (Auto) 10.0 /HPF (0-13.0) 06/10/21 05:30 Hyaline Casts 1 /LPF 06/10/21 05:30 Urine Mucus Few /HPF 06/10/21 05:30 Urine Creatinine 310.0 mg/dL (0.1-20.0) H 06/10/21 05:30 Protein/Creatinin Ratio 0.45 06/10/21 05:30 Urine Sodium 18 mmol/L 06/10/21 05:30 Urine Total Protein 139 mg/dL (5-11.8) H 06/10/21 05:30 Coronavirus (PCR) Negative (Negative) 06/08/21 Unknown Microbiology: Microbiology 06/07/21 10:47 Peripheral/Venous Blood Culture - Final NO GROWTH AFTER 5 DAYS 06/07/21 10:47 Peripheral/Venous Blood Culture - Final NO GROWTH AFTER 5 DAYS Tejeda/IV: Voiding Method External Female Catheter Active Medications - Current Medications Current Medications: Generic Name Dose Route Start Last Admin Trade Name Freq PRN Reason Stop Dose Admin Acetaminophen 650 mg 06/04/21 20:00 06/07/21 22:08 Acetaminophen 325 Mg Tab PO 650 mg Q4H PRN Administration Pain MILD(1-3)/Fever >100.5/FERNANDEZ Albuterol 2.5 mg 06/04/21 20:00 Albuterol 2.5 Mg/3 Ml Nebu IH Q4HRT PRN Shortness Of Breath Amiodarone HCl 200 mg 06/12/21 10:00 06/12/21 10:16 Amiodarone 200 Mg Tab PO 200 mg QDAY TIM Administration Apixaban 2.5 mg 06/10/21 12:00 06/12/21 10:13 Apixaban 2.5 Mg Tab PO 2.5 mg Q12HR TIM Administration Protocol Atorvastatin Calcium 80 mg 06/04/21 22:00 06/11/21 21:14 Atorvastatin 40 Mg Tab PO 80 mg QHS TIM Administration Famotidine 10 mg 06/05/21 22:00 06/12/21 10:12 Famotidine 10 Mg Tab PO 10 mg BID TIM Administration Gabapentin 300 mg 06/05/21 19:00 06/12/21 07:50 Gabapentin 300 Mg Cap PO Not Given QPM TIM Hydromorphone HCl 0.5 mg 06/04/21 20:00 06/10/21 06:19 Hydromorphone 1 Mg/1 Ml Inj IV 0.5 mg Q3H PRN Administration Pain , Severe (7-10) Sodium Chloride 1,000 mls @ 75 mls/hr 06/10/21 08:00 06/11/21 06:47 Nacl 0.45% 1000 Ml IV 75 mls/hr DIRECT TIM Administration Insulin Glargine 15 units 06/09/21 22:00 06/11/21 21:14 Insulin Glargine 100 Units/Ml SUB-Q 15 units QHS TIM Administration Insulin Human Lispro 0 unit 06/07/21 07:30 06/12/21 12:00 Insulin Lispro 100 Unit/Ml SUB-Q Not Given ACHS [facility] Protocol Isosorbide Mononitrate 60 mg 06/05/21 10:00 06/12/21 10:12 Isosorbide Mononitrate Er 60 Mg Tab PO 60 mg QDAY TIM Administration Levetiracetam 500 mg 06/04/21 22:00 06/12/21 10:11 Levetiracetam 500 Mg Tab PO 500 mg BID TIM Administration Metoprolol Tartrate 50 mg 06/09/21 14:00 06/12/21 10:19 Metoprolol Tartrate 50 Mg Tab PO 50 mg TID TIM Administration Morphine Sulfate 4 mg 06/06/21 16:00 06/08/21 22:47 Morphine 4 Mg/1 Ml Inj IV 4 mg Q4H PRN Administration Pain , Severe (7-10) Ondansetron HCl 4 mg 06/04/21 20:00 06/09/21 22:05 Ondansetron 4 Mg/2 Ml Inj IV 4 mg Q8H PRN Administration Nausea And Vomiting Oxycodone/Acetaminophen 1 tab 06/06/21 16:00 06/12/21 10:13 Oxycodone /Acetaminophen 5-325mg Tab PO 1 tab Q6H PRN Administration Pain, Moderate (4-6) Sertraline HCl 100 mg 06/05/21 10:00 06/12/21 10:14 Sertraline 100 Mg Tab PO 100 mg QDAY TIM Administration Sodium Chloride 10 ml 06/04/21 22:00 06/12/21 10:22 Sodium Chloride 0.9% 10 Ml Flush Syringe IV Not Given BID TIM Sodium Chloride 10 ml 06/06/21 16:00 Sodium Chloride 0.9% 10 Ml Flush Syringe IV 06/26/21 15:59 PRN NR Topiramate 50 mg 06/05/21 10:00 06/12/21 10:12 Topiramate Tab 25 Mg Tab PO 50 mg DAILY TIM Administration Tramadol HCl 50 mg 06/08/21 09:00 06/11/21 10:10 Tramadol 50 Mg Tab PO 50 mg Q6H PRN Administration Pain, Moderate (4-6) Nutrition/Malnutrition Assess - Dietary Evaluation Nutrition/Malnutrition Findings: Nutrition Notes Start: 06/11/21 12:37 Freq: Status: Active Protocol: Document 06/11/21 12:37 (Rec: 06/11/21 12:43 [id number]) Nutrition Notes Need for Assessment generated from: Calorie Count,LOS Initial or Follow up Assessment Current Diagnosis Acute Kidney Injury,CKD(stage I-IV),Diabetes,Hypertension, Heart Failure Other Pertinent Diagnosis femur fracture Current Diet regular Labs/Tests BUN 69 Cr 2.8 BG 143 Pertinent Medications Reviewed Height 5 ft 4 in Weight 116.1 kg [place] Body Weight (kg) 54.54 BMI 43.9 Weight Status Morbidly Obese Subjective/Other Information Screen for LOS. Pt eats 50-75% of meals depending on if she likes it or not. Will not restrict diet due to food prefrences. Burn Absent Trauma Absent Current % PO Fair (50-74%) Minimum of two criteria No physical signs of malnutrition #1 Nutrition Diagnosis Predicted suboptimal energy intake Etiology food prefrences As Evidenced by Signs and Symptoms pt eating 50-75% of meals Is patient on ventilator? No Is Patient Ambulatory and/or Out of Bed No [facility] 2045.856 Kcal/Kg value to use for calculation 13 Approximate Energy Requirements Using 1509 kcal/Kg Calculation Used for Recommendations Kcal/kg Additional Notes Protein: (1-1.2g/kg AdjBW: 85kg) 85-102g Fluid: 1 ml/kcal Nutrition Intervention Change Diet Order: continue Add Supplement/Snack (indicate name/kcal Glucerna daily /protein ) Provides kCal: 220 Provides Protein (gm) 10 Goal #1 Meet at least 75% of protein and kcal needs via PO and ONS intakes Anticipated Discharge Needs: Cardiac, consistent CHO Follow-Up By: 06/13/21 Additional Comments F/u: intakes and ONS tolerance
--- NOTE | 2021-06-12 18:05 | Progress Note ---
Assessment and Plan 1. Acute kidney injury: VAL superimposed on CKD. Likely vasomotor VAL. Low FeNa. Renal US b/l hydronephrosis. Monitor renal function. Creatinine level is improving. Avoid nephrotoxic agents. Meds dosage based on GFR. 2. FEN: Hypokalemia, improved. Hyperchloremia, improved, monitor. Replete lytes as needed. Monitor lytes and volume status. 3. L femur displaced fracture: S/p ORIF. 4. Paroxysmal A.fib: Amiodarone and Eliquis. Seen by Cards. 5. H/o CVA. 6. DM type 2: Lantus and SSI. Monitor. 7. HTN: Monitor BP. Adjust meds as needed. 8. LANNY. 9. Hx of seizure: Keppra. 10. Hypochromic anemia: Monitor. Subjective: Patient was seen and examined at the bedside. Examination: General appearance: well-developed, appears stated age, no distress, obese HEENT: LAURENCE, atraumatic Neck: trachea midline Respiratory: Clear to Auscultation Heart: S1S2, no murmur Abdomen: soft, obese, bowel sounds heard, NT Integumentary: no rash Neurologic: Alert, conversing, barely able to move extremities, confused Ext: L leg dressing noted Subjective Date of service: 06/12/21 Principal diagnosis: ORIF, AFIB, Objective - Vital Signs Vital signs: Vital Signs - 12hr 06/12/21 06/12/21 06/12/21 07:42 10:00 10:12 Temperature 98.4 F Pulse Rate 121 H 121 H Respiratory 18 Rate Blood Pressure 150/83 153/83 O2 Sat by Pulse 98 98 Oximetry 06/12/21 12:04 Temperature Pulse Rate Respiratory Rate Blood Pressure 128/74 O2 Sat by Pulse Oximetry - Lab 06/11/21 05:21 06/12/21 05:04 Most recent lab results Calcium 9.0 mg/dL (8.4-10.2) 06/11/21 05:21 Magnesium 1.70 mg/dL (1.7-2.3) 06/08/21 13:45 Urine Creatinine 310.0 mg/dL (0.1-20.0) H 06/10/21 05:30 Urine Sodium 18 mmol/L 06/10/21 05:30 Urine Total Protein 139 mg/dL (5-11.8) H 06/10/21 05:30 Medications & Allergies - Medications Allergies/Adverse Reactions: Allergies No Known Allergies Allergy (Verified 07/12/20 05:04) Home Medications: Home Medications Medication Instructions Recorded Confirmed Last Taken Type Apixaban [Eliquis] 5 mg PO Q12HR #60 tablet 02/14/21 06/06/21 Unknown Rx AtorvaSTATin [Lipitor] 80 mg PO QHS #60 tablet 02/14/21 06/06/21 Unknown Rx Gabapentin 300 mg PO QPM #30 capsule 02/14/21 06/06/21 Unknown Rx Insulin Glargine [Lantus VIAL] 15 units SUB-Q QHS #10 ml 02/14/21 06/06/21 Unknown Rx levETIRAcetam [Keppra TAB] 500 mg PO BID #60 02/14/21 06/06/21 Unknown Rx Aspirin EC [Halfprin EC] 81 mg PO QDAY #30 tablet. 04/15/21 06/06/21 Unknown Rx ISOSORBIDE MONOnitrate [Imdur ER] 60 mg PO QDAY #30 tablet 04/15/21 06/06/21 Unknown Rx Metoprolol Xl [Metoprolol 50 mg PO BID #60 tablet 04/15/21 06/06/21 Unknown Rx SUCCINATE ER TAB] Sertraline [Zoloft] 100 mg PO QDAY #30 04/15/21 06/06/21 Unknown Rx Topiramate [Topamax] 50 mg PO DAILY #30 tablet 04/15/21 06/06/21 Unknown Rx Famotidine [Pepcid] 20 mg PO BID #30 tablet 04/17/21 06/06/21 Unknown Rx traMADoL [Ultram 50 MG tab] 50 mg PO Q6HR PRN #10 tablet 04/17/21 06/06/21 Unknown Rx Amiodarone [Cordarone 200 MG TAB] 200 mg PO BID #60 tablet 06/11/21 Unknown Rx oxyCODONE /ACETAMINOPHEN [Percocet 1 tab PO Q6H PRN #14 tablet 06/11/21 Unknown Rx 5/325 mg] Active Medications: Generic Name Dose Route Start Last Admin Trade Name Freq PRN Reason Stop Dose Admin Acetaminophen 650 mg 06/04/21 20:00 06/07/21 22:08 Acetaminophen 325 Mg Tab PO 650 mg Q4H PRN Administration Pain MILD(1-3)/Fever >100.5/FERNANDEZ Albuterol 2.5 mg 06/04/21 20:00 Albuterol 2.5 Mg/3 Ml Nebu IH Q4HRT PRN Shortness Of Breath Amiodarone HCl 200 mg 06/12/21 10:00 06/12/21 10:16 Amiodarone 200 Mg Tab PO 200 mg QDAY TIM Administration Apixaban 2.5 mg 06/10/21 12:00 06/12/21 10:13 Apixaban 2.5 Mg Tab PO 2.5 mg Q12HR TIM Administration Protocol Atorvastatin Calcium 80 mg 06/04/21 22:00 06/11/21 21:14 Atorvastatin 40 Mg Tab PO 80 mg QHS TIM Administration Famotidine 10 mg 06/05/21 22:00 06/12/21 10:12 Famotidine 10 Mg Tab PO 10 mg BID TIM Administration Gabapentin 300 mg 06/05/21 19:00 06/12/21 07:50 Gabapentin 300 Mg Cap PO Not Given QPM TIM Hydromorphone HCl 0.5 mg 06/04/21 20:00 06/10/21 06:19 Hydromorphone 1 Mg/1 Ml Inj IV 0.5 mg Q3H PRN Administration Pain , Severe (7-10) Sodium Chloride 1,000 mls @ 75 mls/hr 06/10/21 08:00 06/11/21 06:47 Nacl 0.45% 1000 Ml IV 75 mls/hr DIRECT TIM Administration Insulin Glargine 15 units 06/09/21 22:00 06/11/21 21:14 Insulin Glargine 100 Units/Ml SUB-Q 15 units QHS TIM Administration Insulin Human Lispro 0 unit 06/07/21 07:30 06/12/21 12:00 Insulin Lispro 100 Unit/Ml SUB-Q Not Given ACHS [facility] Protocol Isosorbide Mononitrate 60 mg 06/05/21 10:00 06/12/21 10:12 Isosorbide Mononitrate Er 60 Mg Tab PO 60 mg QDAY TIM Administration Levetiracetam 500 mg 06/04/21 22:00 06/12/21 10:11 Levetiracetam 500 Mg Tab PO 500 mg BID TIM Administration Metoprolol Tartrate 50 mg 06/09/21 14:00 06/12/21 16:43 Metoprolol Tartrate 50 Mg Tab PO 50 mg TID TIM Administration Morphine Sulfate 4 mg 06/06/21 16:00 06/08/21 22:47 Morphine 4 Mg/1 Ml Inj IV 4 mg Q4H PRN Administration Pain , Severe (7-10) Ondansetron HCl 4 mg 06/04/21 20:00 06/09/21 22:05 Ondansetron 4 Mg/2 Ml Inj IV 4 mg Q8H PRN Administration Nausea And Vomiting Oxycodone/Acetaminophen 1 tab 06/06/21 16:00 06/12/21 10:13 Oxycodone /Acetaminophen 5-325mg Tab PO 1 tab Q6H PRN Administration Pain, Moderate (4-6) Sertraline HCl 100 mg 06/05/21 10:00 06/12/21 10:14 Sertraline 100 Mg Tab PO 100 mg QDAY TIM Administration Sodium Chloride 10 ml 06/04/21 22:00 06/12/21 10:22 Sodium Chloride 0.9% 10 Ml Flush Syringe IV Not Given BID TIM Sodium Chloride 10 ml 06/06/21 16:00 Sodium Chloride 0.9% 10 Ml Flush Syringe IV 06/26/21 15:59 PRN NR Topiramate 50 mg 06/05/21 10:00 06/12/21 10:12 Topiramate Tab 25 Mg Tab PO 50 mg DAILY TIM Administration Tramadol HCl 50 mg 06/08/21 09:00 06/11/21 10:10 Tramadol 50 Mg Tab PO 50 mg Q6H PRN Administration Pain, Moderate (4-6)
[2021-06-12 19:41] VITALS: BP 143/77
== END 2021-06-12 19:55 | DRG 480 ==
LOC: ED 15:51 → 4A 18:55
PROVIDERS: ADMIT Internal Medicine; ATTEND Internal Medicine
PROC: 0QSC04Z Reposition Left Lower Femur with Internal Fixation Device, Open Approach (ICD-10-PCS; principal; 2021-06-06)
DX: S72.402A Unspecified fracture of lower end of left femur, initial encounter for closed fracture (principal); N17.0 Acute kidney failure with tubular necrosis; M97.8XXA Periprosthetic fracture around other internal prosthetic joint, initial encounter; E66.2 Morbid (severe) obesity with alveolar hypoventilation; N13.39 Other hydronephrosis; I42.8 Other cardiomyopathies; G93.40 Encephalopathy, unspecified; I13.0 Hypertensive heart and chronic kidney disease with heart failure and stage 1 through stage 4 chronic kidney disease, or unspecified chronic kidney disease; I50.22 Chronic systolic (congestive) heart failure; I48.0 Paroxysmal atrial fibrillation; Z68.38 Body mass index [BMI] 38.0-38.9, adult; I25.10 Atherosclerotic heart disease of native coronary artery without angina pectoris; Z20.822 Contact with and (suspected) exposure to COVID-19; E78.5 Hyperlipidemia, unspecified; G40.909 Epilepsy, unspecified, not intractable, without status epilepticus; W18.39XA Other fall on same level, initial encounter; Y93.89 Activity, other specified; Y92.89 Other specified places as the place of occurrence of the external cause; Y99.8 Other external cause status; E87.6 Hypokalemia; E87.8 Other disorders of electrolyte and fluid balance, not elsewhere classified; D50.9 Iron deficiency anemia, unspecified; E11.22 Type 2 diabetes mellitus with diabetic chronic kidney disease; Z83.3 Family history of diabetes mellitus; I25.2 Old myocardial infarction; Z82.49 Family history of ischemic heart disease and other diseases of the circulatory system; Z86.73 Personal history of transient ischemic attack (TIA), and cerebral infarction without residual deficits; Z79.82 Long term (current) use of aspirin; N18.9 Chronic kidney disease, unspecified; Z79.4 Long term (current) use of insulin
CPT/HCPCS: 36415; 64447; 71045; 74176; 76770; 80048; 80053; 81001; 82565; 82570; 82962; 83735; 84156; 84300; 84443; 85025; 85027; 85610; 85730; 87040; 87086; 93005; 94640; 94760; G0378; A9270-GY; C1713; J0330; J0456; J0696; J1100; J1170; J1644; J1650; J1815; J2250; J2270; J2370; J2405; J2704; J3010; J3475; J7030; J7120; U0003